=== PATIENT | female | born 1990 | race Caucasian/White ===

== ENCOUNTER 2021-02-12 21:39 | Emergency (ER) | payer MEDICAID, SELFPAY ==
[2021-02-12 22:31] LABS: HCG Qualitative Urine. Negative (Negative)
[2021-02-12 22:33] LABS: Add Urine Microscopic? YES; Bilirubin Urine Neg (Negative); Blood Urine 3+ (Negative); Glucose Urine UA Norm (Normal); Ketones Urine Negative (Negative); Leukocyte Esterase Urine Negative (Negative); Nitrate Urine Negative (Negative); Protein Urine Neg (Negative); Specific Gravity, Urine 1.015 (1.005-1.030); Urine Appearance Clear (CLEAR); Urine Color Yellow (Yellow); Urobilinogen Urine Norm (Negative); pH Urine 6.5 (5-7)
[2021-02-12 22:44] LABS: Add Urine Culture? Yes; Bacteria Urine 2+ /hpf; RBC Urine 50-80 /hpf (0-2); WBC Urine 0-4 /hpf (0-5)
[2021-02-12 22:57] VITALS: PULSE 78; RESP 16; TEMP 36.8; O2SAT 98; BMI 47.2
[2021-02-13 02:08] VITALS: BP 145/98; PULSE 74; RESP 18; O2SAT 98
[2021-02-13 02:18] LABS: Hematocrit 46.1 % (37.0-47.0); Hemoglobin 15.1 g/dL (11.5-15.3); Mean Corpuscular HGB Conc 32.8 g/dL (30.0-36.0); Mean Corpuscular Hemoglobin 30.9 pg (28.0-34.0); Mean Corpuscular Volume 94.5 fL (81-99); Nucleated Red Blood Cells % 0 %; Red Blood Count 4.88 10^6/uL (4.1-5.3)
--- NOTE | 2021-02-13 02:19 | W.ED.PREGNAN ---
HPI - General: Chief complaint: Vaginal Bleeding Stated complaint: N/V,Mctge543.6,weakness,severe cramping,bleeding. Time Seen by Provider: 02/13/21 01:58 Source: patient Mode of arrival: ambulatory Limitations: no limitations History of Present Illness: HPI Narrative: 30 yo female patient presents with vaginal bleeding and pelvic cramping. Pt states this has been going on for 4 weeks and has a hysterectomy scheduled in March. Pt states she lb up dizzy today. Pt denies any urinary symptoms or back pain. Pt states she felt like she ws running a fever earlier today Date of Last Menstrual Period: 02/12/21 Associated symptoms: Deny abdominal pain, dysuria, headache(s), malaise, nausea, syncope or vomiting Related Data: : 5 Review of Systems Const: Reports: fever(s); Denies: chills, body aches, change in appetite, change in weight, fatigue, malaise or diaphoresis Eyes: Denies: change in vision, blurry vision, blind spots, photophobia, eye discomfort, eye discharge, eye redness, floaters or seeing flashes ENMT: Denies: throat pain, uvular edema, enlarged tonsils, odynophagia, hoarseness, mouth pain, swelling of lips/tongue, oral sores, bleeding gums, dental pain, dry mouth, ear or mastoid pain, ear discharge, change in hearing, tinnitus, disequilibrium, nasal discharge, nasal congestion, post nasal drip or sinus pain Card: Denies: chest pain, palpitations, irregular heart rhythm, edema, swelling of feet/ankles, lightheadedness, syncope, pre-syncope, dyspnea on exertion, orthopnea, leg pain with exertion or acrocyanosis Resp: Denies: dyspnea, productive cough, non-productive cough, wheezing, stridor, pain on inspiration, change in phlegm color, hemoptysis or chest congestion GI: Denies: abdominal pain, nausea, vomiting, hematemesis, dysphagia, diarrhea, constipation, GI cramping, change in bowel habits or rectal pain : Reports: vaginal bleeding and pelvic pain; Denies: flank pain, difficulty voiding, dysuria, urinary frequency, urinary urgency, urinary hesitancy or hematuria Musc: Denies: neck pain, back pain, extremity pain, extremity swelling, joint pain, joint swelling, joint redness, joint warmth or deformity Skin/Breast: Denies: rash, pruritus, erythema, sores, new lesions, changes in skin color or dry skin Neuro: Denies: headache(s), numbness in extremities, weakness in extremities, sensory changes, lack of coordination, difficulty walking, frequent falls, dizziness, vertigo, confusion, behavioral changes, Slurred speech present, difficulty communicating thoughts or seizure-like activity Psych: Denies: anxiety, depression, suicidal ideation or homicidal ideation Endo: Denies: polyuria, polydipsia, tired all the time, cold intolerance, excessive sweating, flushing, hot flashes or heat intolerance Ezekiel/Lymph: Denies: easy bruising, easy bleeding, petechiae, purpura, enlarged lymph nodes or tender lymph nodes All/Imm: Denies: urticaria, throat swelling, tongue swelling, facial swelling, acute wheezing or itchy eyes [facility] Female Reproductive History: Date of last menstrual period: 02/12/21 : 5 Physical Exam Const: COMMON NORMALS: no acute distress, average body habitus, patient oriented x3, no limitations, healthy appearing, alert and well nourished HENMT: THROAT: no uvular edema Neck/C-Spine: COMMON NORMALS: no JVD Lymph: LYMPHATIC: no lymphadenopathy noted Resp: COMMON NORMALS: normal respiratory effort, No retractions, No use of accessory muscles and clear to auscultation bilaterally AUSCULTATION: clear to auscultation bilaterally Cardio: COMMON NORMALS: no JVD, regular rate, regular rhythm, S1 normal heart sound present, S2 normal heart sound present, No gallops present (Cardio), No clicks present (Cardio), No murmurs present (Cardio), No rub (Cardio) and Peripheral pulses 2+ throughout RATE: regular rate RHYTHM: regular rhythm HEART SOUNDS: S1 normal heart sound present and S2 normal heart sound present PERIPHERAL PULSES: Peripheral pulses 2+ throughout GI: COMMON NORMALS: Normal to inspection, nondistended, normoactive bowel sounds present, Soft to palpation, non-tender, No hepatosplenomegaly present, no masses and no bruits PALPATION: Yes Soft to palpation and Yes No hepatosplenomegaly present : COMMON NORMALS: Yes no CVA tenderness BLADDER/KIDNEY EXAM: Yes no CVA tenderness Back/Pelvis: COMMON NORMALS: no CVA tenderness Neuro: COMMON NORMALS: patient oriented x3 SENSORIUM/ORIENTATION: Yes alert Course Vital Signs: Vital signs: Vital Signs Temperature 98.2 F 02/12/21 22:57 Pulse Rate 86 02/13/21 03:25 Respiratory Rate 18 02/13/21 03:25 Blood Pressure 142/88 02/13/21 03:25 Pulse Oximetry 96 02/13/21 03:25 MDM - OB/Uterine Contractions MDM Narrative: Medical decision making narrative: Pt is well appearing non toxic and in no acute distress Pt H&H are stable. VSS. t US Reveals Patient: Ivy Duque IUnit #: [id number]: [id number]#:[id number]/Sex: 30 / FADM Date: 02/12/21Loc: ERRoom/Bed:Attending Dr: Ordering Provider/Ordering MD: Natalia Jovel NP Date of Service: 02/13/21 Procedure(s): US transvaginal [id number] Accession Number(s): [id number] Report Number: [id number] PROCEDURE INFORMATION: Exam: US Pelvis, Transvaginal Exam date and time: 02/13/2021 2:57 AM Age: 30 years old Clinical indication: Pelvic pain; Prior surgery; Surgery date: 6+ months; Surgery type: Tubal; Additional info: Vag bleeding and pelvic pain TECHNIQUE: Imaging protocol: Real-time transvaginal pelvic ultrasound with image documentation. Transvaginal imaging was used for better evaluation of the endometrium, adnexa, and/or cervix. COMPARISON: No relevant prior studies available. FINDINGS: Uterus/cervix: There is a heterogeneous thickened endometrial mass measuring 2.3 x 1.3 x 2.3 cm within the lower uterine segment. The uterus measures 6.6 x 4.4 x 4.8 cm. Right adnexa: The right ovary measures 2.2 x 2.9 cm. Vascular flow is demonstrated within the right ovary with color Doppler and duplex waveform sonography. PSV 45 cm/s, RI 0.93. Left adnexa: The left ovary measures 2.0 x 2.52.3 cm. Vascular flow is demonstrated within the left ovary with color Doppler and duplex waveform sonography. PSV 11.5 cm/s, RI 0.46. Intraperitoneal space: Trace fluid is seen within the cul-de-sac. US/US transvaginal [id number] IMPRESSION: 1. Endometrial mass seen in the lower uterine segment measuring up to 2.3 cm. 2. Otherwise normal pelvic sonography Pt is aware of these findings and has hysterectomy scheduled onext month. Return precautions advised and home care reviewed. Pt is medically stable and appropriate for DC Lab Data: Labs: Lab Results 02/12/21 02/12/21 02/13/21 Range/Units 21:50 21:50 02:07 WBC 17.0 H (4.0-10.0) 10^3/ uL RBC 4.88 (4.1-5.3) 10^6/u L Hgb 15.1 (11.5-15.3) g/dL Hct 46.1 (37.0-47.0) % MCV 94.5 (81-99) fL MCH 30.9 (28.0-34.0) pg MCHC 32.8 (30.0-36.0) g/dL RDW 13.2 (12.1-15.1) % Plt Count 238 (130-400) 10^3/c mm MPV 11.2 H (7.4-10.4) fL Neut % (Auto) 59.6 % Lymph % (Auto) 32.7 % Gillespie % (Auto) 4.9 % Eos % (Auto) 2.0 % Baso % (Auto) 0.4 % Neut # (Auto) 10.15 H (1.8-7.7) 10^3/u L Lymph # (Auto) 5.6 H (0.8-4.8) 10^3/u L Gillespie # (Auto) 0.8 (0.2-0.9) 10^3/u L Eos # (Auto) 0.3 (0.0-0.8) 10^3/u L Baso # (Auto) 0.1 (0.0-0.1) 10^3/u L Nucleated RBC % (a uto) 0 % Nucleated RBCs # 0.0 /100WBC Sodium (136-145) mmol/L Potassium (3.5-5.1) mmol/L Chloride (98-107) mmol/L Carbon Dioxide (22-29) mmol/L Anion Gap (5-19) BUN (6-20) mg/dL Creatinine (0.5-0.9) mg/dL GFR Calculation (90-130) mL/min Glucose (65-115) mg/dL Calculated Osmolal ity (285-295) mOsm/k g Calcium (8.5-10.5) mg/dL Total Bilirubin (0.15-1.2) mg/dL AST (0-32) U/L ALT (0-33) U/L Alkaline Phosphata se (35-105) IU/L Total Protein (6.6-8.7) g/dL Albumin (3.5-5.2) g/dL Globulin (1.3-4.6) g/dL HCG, Qual Negative (Negative) Urine Color Yellow (Yellow) Urine Appearance Clear (CLEAR) Urine pH 6.5 (5-7) Ur Specific Gravit y 1.015 (1.005-1.030) Urine Protein Neg (Negative) Urine Glucose (UA) Norm (Normal) Urine Ketones Negative (Negative) Urine Blood 3+ H (Negative) Urine Nitrate Negative (Negative) Urine Bilirubin Neg (Negative) Urine Urobilinogen Norm (Negative) mg/dL Ur Leukocyte Alina ase Negative (Negative) Urine RBC 50-80 H (0-2) /hpf Urine WBC 0-4 H (0-5) /hpf Ur Squamous Epith Cells 5-10 H (0-5) /hpf Amorphous Sediment Not Reportable Urine Bacteria 2+ H (NONE) /hpf 02/13/21 Range/Units 02:07 WBC (4.0-10.0) 10^3/ uL RBC (4.1-5.3) 10^6/u L Hgb (11.5-15.3) g/dL Hct (37.0-47.0) % MCV (81-99) fL MCH (28.0-34.0) pg MCHC (30.0-36.0) g/dL RDW (12.1-15.1) % Plt Count (130-400) 10^3/c mm MPV (7.4-10.4) fL Neut % (Auto) % Lymph % (Auto) % Gillespie % (Auto) % Eos % (Auto) % Baso % (Auto) % Neut # (Auto) (1.8-7.7) 10^3/u L Lymph # (Auto) (0.8-4.8) 10^3/u L Gillespie # (Auto) (0.2-0.9) 10^3/u L Eos # (Auto) (0.0-0.8) 10^3/u L Baso # (Auto) (0.0-0.1) 10^3/u L Nucleated RBC % (a uto) % Nucleated RBCs # /100WBC Sodium 139 (136-145) mmol/L Potassium 4.2 (3.5-5.1) mmol/L Chloride 105 (98-107) mmol/L Carbon Dioxide 23 (22-29) mmol/L Anion Gap 15.2 (5-19) BUN 14 (6-20) mg/dL Creatinine 0.6 (0.5-0.9) mg/dL GFR Calculation 115.9 (90-130) mL/min Glucose 94 (65-115) mg/dL Calculated Osmolal ity 288 (285-295) mOsm/k g Calcium 8.6 (8.5-10.5) mg/dL Total Bilirubin 0.2 (0.15-1.2) mg/dL AST 15 (0-32) U/L ALT 28 (0-33) U/L Alkaline Phosphata se 82 (35-105) IU/L Total Protein 6.9 (6.6-8.7) g/dL Albumin 3.9 (3.5-5.2) g/dL Globulin 3.0 (1.3-4.6) g/dL HCG, Qual (Negative) Urine Color (Yellow) Urine Appearance (CLEAR) Urine pH (5-7) Ur Specific Gravit y (1.005-1.030) Urine Protein (Negative) Urine Glucose (UA) (Normal) Urine Ketones (Negative) Urine Blood (Negative) Urine Nitrate (Negative) Urine Bilirubin (Negative) Urine Urobilinogen (Negative) mg/dL Ur Leukocyte Alina ase (Negative) Urine RBC (0-2) /hpf Urine WBC (0-5) /hpf Ur Squamous Epith Cells (0-5) /hpf Amorphous Sediment Urine Bacteria (NONE) /hpf Discharge Plan Discharge Patient Disposition: Home Clinical Impression: Vaginal bleeding, Dysfunctional uterine bleeding Condition: Stable Discharge Orders: Discharge ED (Routine); Ordered 02/13/21 Ordered By: Natalia Jovel Discharge Diet: Advance as tolerated Discharge Activity: Resume usual activity Patient Instructions: Dysfunctional Uterine Bleeding (ED), Opioid Safety Activity Restrictions/Additional Instructions: Please keep appointment as scheduled with BUILDING SERVICES SUPERVISOR for planned hysterectomy Return to the ER with any worsening of symptoms or You continue to bleed heavily, or you feel faint. Coding Level of Care Code ED Supervisor Stripping for Chg Fwd Exam Detailed
[2021-02-13 02:23] VITALS: RESP 18; O2SAT 96
[2021-02-13] MEDS: morphine 4 mg/mL SDV 1 mL IVP (02:23)
[2021-02-13] MEDS: ondansetron 2 mg/ML SDV 2 mL 4 MG IVP (02:23)
[2021-02-13 02:24] LABS: Basophils # 0.1 10^3/uL (0.0-0.1); Basophils % 0.4 %; Eosinophils # 0.3 10^3/uL (0.0-0.8); Lymphocytes # 5.6 10^3/uL (0.8-4.8); Lymphocytes % 32.7 %; Mean Platelet Volume 11.2 fL (7.4-10.4); Monocytes # 0.8 10^3/uL (0.2-0.9); Monocytes % 4.9 %; Neutrophils # 10.15 10^3/uL (1.8-7.7); Neutrophils % 59.6 %; Platelet Count 238 10^3/cmm (130-400); Red Cell Distribution Width 13.2 % (12.1-15.1)
[2021-02-13] MEDS: sodium chloride 0.9% 1,000 ML 999 ML IV (02:28)
[2021-02-13 02:41] LABS: Alanine Aminotransferase 28 U/L (0-33); Albumin Level 3.9 g/dL (3.5-5.2); Alkaline Phosphatase 82 IU/L (35-105); Aspartate Amino Transferase 15 U/L (0-32); Blood Urea Nitrogen 14 mg/dL (6-20); Calcium 8.6 mg/dL (8.5-10.5); Carbon Dioxide 23 mmol/L (22-29); Chloride 105 mmol/L (98-107); Glomerular Filtration Rate 115.9 mL/min (90-130); Glucose 94 mg/dL (65-115); Osmolality Calculated 288 mOsm/kg (285-295); Sodium 139 mmol/L (136-145); Total Bilirubin 0.2 mg/dL (0.15-1.2); Total Protein 6.9 g/dL (6.6-8.7)
[2021-02-13 02:49] LABS: Anion Gap 15.2 (5-19); Potassium 4.2 mmol/L (3.5-5.1)
[2021-02-13 02:54] LABS: Slide Review Slide Review Perform
[2021-02-13 03:25] VITALS: BP 142/88; PULSE 86; RESP 18; O2SAT 96
--- NOTE | 2021-02-13 23:15 | USR_ITS ---
PROCEDURE INFORMATION: Exam: US Pelvis, Transvaginal Exam date and time: 02/13/2021 2:57 AM Age: 30 years old Clinical indication: Pelvic pain; Prior surgery; Surgery date: 6+ months; Surgery type: Tubal; Additional info: Vag bleeding and pelvic pain TECHNIQUE: Imaging protocol: Real-time transvaginal pelvic ultrasound with image documentation. Transvaginal imaging was used for better evaluation of the endometrium, adnexa, and/or cervix. COMPARISON: No relevant prior studies available. FINDINGS: Uterus/cervix: There is a heterogeneous thickened endometrial mass measuring 2.3 x 1.3 x 2.3 cm within the lower uterine segment. The uterus measures 6.6 x 4.4 x 4.8 cm. Right adnexa: The right ovary measures 2.2 x 2.9 cm. Vascular flow is demonstrated within the right ovary with color Doppler and duplex waveform sonography. PSV 45 cm/s, RI 0.93. Left adnexa: The left ovary measures 2.0 x 2.52.3 cm. Vascular flow is demonstrated within the left ovary with color Doppler and duplex waveform sonography. PSV 11.5 cm/s, RI 0.46. Intraperitoneal space: Trace fluid is seen within the cul-de-sac. US/US transvaginal [id number] IMPRESSION: 1. Endometrial mass seen in the lower uterine segment measuring up to 2.3 cm. 2. Otherwise normal pelvic sonography
== END 2021-02-13 03:26 | disposition home or self-care (01) ==
PROVIDERS: Emergency Provider Registered Nurse
DX: N93.8 Other specified abnormal uterine and vaginal bleeding (principal)
CPT/HCPCS: 76830; 80053; 81001; 81025; 85025; 87086; 96361; 96374; 96375; 99283; J2270; J2405; J7030

== ENCOUNTER 2021-02-14 10:12 | Emergency (ER) | payer MEDICAID, SELFPAY ==
[2021-02-14 10:26] VITALS: PULSE 80; RESP 16; TEMP 37.1; O2SAT 98; BMI 50.4
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
[2021-02-14 11:11] VITALS: RESP 18
[2021-02-14] MEDS: morphine 4 mg/mL SDV 1 mL IVP (11:11)
[2021-02-14] MEDS: ondansetron 2 mg/ML SDV 2 mL 4 MG IVP (11:11)
[2021-02-14] MEDS: sodium chloride 0.9% 1,000 ML 999 ML IV (11:11)
[2021-02-14 11:13] LABS: Basophils # 0.1 10^3/uL (0.0-0.1); Basophils % 0.3 %; Eosinophils # 0.2 10^3/uL (0.0-0.8); Eosinophils % 1.4 %; Hematocrit 46.6 % (37.0-47.0); Hemoglobin 14.9 g/dL (11.5-15.3); Lymphocytes # 3.5 10^3/uL (0.8-4.8); Lymphocytes % 22.8 %; Mean Corpuscular Hemoglobin 30.7 pg (28.0-34.0); Mean Corpuscular Volume 95.9 fL (81-99); Monocytes # 0.6 10^3/uL (0.2-0.9); Monocytes % 3.9 %; Neutrophils # 10.86 10^3/uL (1.8-7.7); Neutrophils % 71.2 %; Nucleated Red Blood Cells % 0 %; Platelet Count 213 10^3/cmm (130-400); Red Blood Count 4.86 10^6/uL (4.1-5.3); Red Cell Distribution Width 13.2 % (12.1-15.1); White Blood Count 15.3 10^3/uL (4.0-10.0)
[2021-02-14 11:32] LABS: Alanine Aminotransferase 24 U/L (0-33); Albumin Level 3.5 g/dL (3.5-5.2); Alkaline Phosphatase 74 IU/L (35-105); Aspartate Amino Transferase 14 U/L (0-32); Blood Urea Nitrogen 12 mg/dL (6-20); Calcium 8.5 mg/dL (8.5-10.5); Carbon Dioxide 22 mmol/L (22-29); Chloride 106 mmol/L (98-107); Globulin 3.2 g/dL (1.3-4.6); Glomerular Filtration Rate 115.9 mL/min (90-130); Glucose 109 mg/dL (65-115); Osmolality Calculated 288 mOsm/kg (285-295); Sodium 139 mmol/L (136-145); Total Bilirubin 0.3 mg/dL (0.15-1.2); Total Protein 6.7 g/dL (6.6-8.7)
--- NOTE | 2021-02-14 12:07 | DCPLANNER ---
distributed generation project manager was asked to schedule a follow up appointment for patient with [facility]. distributed generation project manager called [facility], spoke with Isabelle, gave clinic patients information. distributed generation project manager was told that Dr. Wray wanted to see patient on February 17 at 9:00. distributed generation project manager told the clinic that per Dr. Wray that is when the physician wanted to see patient.
[2021-02-14 12:40] VITALS: BP 130/54; PULSE 72; RESP 18; O2SAT 98
--- NOTE | 2021-04-13 06:52 | DCPLANNER ---
Patient had a follow up appointment scheduled for 02.17.21 with [facility] - patient did attend appointment.
== END 2021-02-14 12:42 | disposition home or self-care (01) ==
PROVIDERS: Emergency Provider Physician Assistant
DX: N93.8 Other specified abnormal uterine and vaginal bleeding (principal)
CPT/HCPCS: 80053; 84702; 85025; 96361; 96374; 96375; 99283; 99291; J2270; J2405; J7030

== ENCOUNTER → 2021-02-17 09:23 | Outpatient (BNVA) | payer MEDICAID, SELFPAY | PROVIDERS: Visit Provider Obstetrics & Gynecology | DX: N93.8 Other specified abnormal uterine and vaginal bleeding (principal) | CPT/HCPCS: 88305 ==

== ENCOUNTER → 2021-02-20 13:37 | Outpatient (BNVA) | payer MEDICAID, SELFPAY | PROVIDERS: Visit Provider Obstetrics & Gynecology | DX: Z01.812 Encounter for preprocedural laboratory examination (principal); Z20.822 Contact with and (suspected) exposure to COVID-19 | CPT/HCPCS: 87635 ==

== ENCOUNTER 2021-06-25 13:42 | Emergency (ER) | payer MEDICAID, SELFPAY ==
[2021-06-25 13:54] VITALS: BP 156/101; PULSE 83; RESP 20; TEMP 35.9; O2SAT 96; BMI 48.2
--- NOTE | 2021-06-25 14:17 | W.ED.GENADLT ---
HPI - General Adult General: Chief complaint: General Medical Stated complaint: 2 TEETH EXTRACTED 5 DAYS AGO:PAIN,HTN,DIZZY,NAUSEA Time Seen by Provider: 06/25/21 14:10 Source: patient Mode of arrival: ambulatory Limitations: no limitations History of Present Illness: HPI narrative: 31-year-old female states she had to have her left lower molars extracted last week. States she had increasing pain over the last 3 days and severe pain over the last 2 days where her pain meds are not helping it. States pain is sharp in nature and is radiating to her neck she is having difficulty eating and nausea due to the pain. She is taking Reynolds at home. States pain is currently 9 out of 10. Denies any fever or vomiting. Associated symptoms: Deny chest pain, dyspnea, headache(s), nausea, rash or vomiting Review of Systems Const: Denies: fever(s), chills, body aches or change in appetite Eyes: Denies: blurry vision or eye discomfort ENMT: Reports: mouth pain Card: Denies: chest pain Resp: Denies: dyspnea GI: Denies: abdominal pain, nausea, vomiting or diarrhea : Denies: dysuria Musc: Denies: neck pain or back pain Skin/Breast: Denies: rash Neuro: Denies: headache(s) Psych: Denies: depression Ezekiel/Lymph: Denies: easy bruising All/Imm: Denies: urticaria PFSH ED PFSH: Family History (Updated 02/17/21 @ 08:42 by Kortney Kong LPN) Mother Colon cancer Diabetes Hyperlipidemia Hypertension Stroke Heart disease Father Diabetes Hypertension Thyroid disease Denies family history of Clotting disorder Chronic kidney disease (CKD) Bleeding disorder Female Reproductive History: Date of last menstrual period: 02/12/21 Physical Exam Const: COMMON NORMALS: no acute distress, patient oriented x3 and healthy appearing HENMT: COMMON NORMALS: normocephalic and atraumatic HEAD & SCALP: normocephalic and atraumatic Eye: COMMON NORMALS: Equal, round and reactive pupils present and EOMs intact bilaterally PUPIL: Yes Equal, round and reactive pupils present Neck/C-Spine: COMMON NORMALS: full ROM and supple Chest: COMMONS NORMALS: normal inspection of the chest and normal palpation of entire chest wall Resp: COMMON NORMALS: normal respiratory effort, No retractions, No use of accessory muscles and clear to auscultation bilaterally AUSCULTATION: clear to auscultation bilaterally Cardio: COMMON NORMALS: regular rate, regular rhythm and No murmurs present (Cardio) RATE: regular rate RHYTHM: regular rhythm GI: COMMON NORMALS: Normal to inspection, nondistended, normoactive bowel sounds present, Soft to palpation, non-tender and no masses PALPATION: Yes Soft to palpation Extremity: COMMON NORMALS: normal to inspection and full ROM Neuro: COMMON NORMALS: patient oriented x3, moves all extremities and no focal motor deficits Psych: COMMON NORMALS: mental status grossly normal, Normal thought process present and cooperative THOUGHT PROCESS: Normal thought process present Skin: COMMON NORMALS: no rashes or lesions noted and no wounds GENERAL SKIN EXAM: no rashes or lesions noted Course Vital Signs: Vital signs: Vital Signs Temperature 98.4 F 06/25/21 14:48 Pulse Rate 77 06/25/21 14:48 Respiratory Rate 16 06/25/21 14:48 Blood Pressure 149/103 06/25/21 14:48 Pulse Oximetry 96 06/25/21 14:48 MDM - General Adult MDM Narrative: Medical decision making narrative: Patient presents here with dental pain from recent tooth extraction exam here is benign she is no signs of abscess or any serious infection. Pain here is much improved she stable for discharge she is to continue her amoxicillin and follow-up with her dentist. Patient understands agrees to plan. Lab Data: Labs: Lab Results 06/25/21 06/25/21 06/25/21 14:20 14:20 14:20 WBC 13.7 10^3/uL H 10 ^3/uL (4.0-10.0) RBC 5.15 10^6/uL 10^6 /uL (4.1-5.3) Hgb 15.3 g/dL g/dL (11.5-15.3) Hct 46.0 % % (37.0-47.0) MCV 89.3 fl fl (81-99) MCH 29.7 pg pg (28.0-34.0) MCHC 33.3 g/dL g/dL (30.0-36.0) RDW 13.8 % % (12.1-15.1) Plt Count 252 10^3/cmm 10^3 /cmm (130-400) MPV 10.6 fL H fL (7.4-10.4) Neut % (Auto) 60.8 % % Lymph % (Auto) 30.6 % % [place] % (Auto) 6.6 % % Eos % (Auto) 1.1 % % Baso % (Auto) 0.3 % % Neut # (Auto) 8.37 10^3/uL H 10 ^3/uL (1.8-7.7) Lymph # (Auto) 4.2 10^3/uL 10^3/ uL (0.8-4.8) [place] # (Auto) 0.9 10^3/uL 10^3/ uL (0.2-0.9) Eos # (Auto) 0.2 10^3/uL 10^3/ uL (0.0-0.8) Baso # (Auto) 0.0 10^3/uL 10^3/ uL (0.0-0.1) Nucleated RBC % (a uto) 0 % % Nucleated RBCs # 0.0 /100WBC /100W BC Sodium 135 mmol/L L mmol /L (136-145) Potassium 3.9 mmol/L mmol/L (3.5-5.1) Chloride 102 mmol/L mmol/L (98-107) Carbon Dioxide 26 mmol/L mmol/L (22-29) Anion Gap 10.9 (5-19) BUN 7 mg/dL mg/dL (6-20) Creatinine 0.5 mg/dL mg/dL (0.5-0.9) GFR Calculation 142.1 mL/min H mL /min (90-130) Glucose 72 mg/dL mg/dL (65-115) Calculated Osmolal ity 277 mOsm/kg L mOs m/kg (285-295) Calcium 8.5 mg/dL mg/dL (8.5-10.5) Total Bilirubin 0.3 mg/dL mg/dL (0.15-1.2) AST 15 U/L U/L (0-32) ALT 18 U/L U/L (0-33) Alkaline Phosphata se 77 IU/L IU/L (35-105) Total Protein 7.1 g/dL g/dL (6.6-8.7) Albumin 3.8 g/dL g/dL (3.5-5.2) Globulin 3.3 g/dL g/dL (1.3-4.6) Lipase 14 U/L U/L (13-60) HCG, Qual Negative (Negative) Discharge Plan Discharge Patient Disposition: Home Clinical Impression: Pain, dental Condition: Stable Prescriptions: No Action Depo-Provera 150 mg/mL Suspension 150 mg IM UNK RF: 0 Zofran 4 mg tablet 4 mg PO Q8H PRN (Reason: nausea and vomiting) Qty: 15 RF: 0 Discharge Orders: Discharge ED (Routine); Ordered 06/25/21 Ordered By: Brian Pate Referrals: Quyen Branham [Primary Care Provider] - 1-3 days Discharge Diet: Advance as tolerated Discharge Activity: Resume usual activity Coding Level of Care Code ED Instructional Materials Director for [place] Fwd Exam Comprehensive
[2021-06-25 14:47] VITALS: RESP 18
[2021-06-25] MEDS: ondansetron 2 mg/ML SDV 2 mL 4 MG IVP (14:47)
[2021-06-25] MEDS: HYDROmorphone 1 mg/mL INJ 1 mL IVP ×2 (14:47→16:04)
[2021-06-25 14:48] VITALS: BP 149/103; PULSE 77; RESP 16; TEMP 36.9; O2SAT 96
[2021-06-25] MEDS: sodium chloride 0.9% 1,000 ML 999 ML IV (14:48)
[2021-06-25 14:57] LABS: Basophils % 0.3 %; Eosinophils # 0.2 10^3/uL (0.0-0.8); Eosinophils % 1.1 %; Hemoglobin 15.3 g/dL (11.5-15.3); Lymphocytes # 4.2 10^3/uL (0.8-4.8); Lymphocytes % 30.6 %; Mean Corpuscular HGB Conc 33.3 g/dL (30.0-36.0); Mean Corpuscular Hemoglobin 29.7 pg (28.0-34.0); Mean Corpuscular Volume 89.3 fl (81-99); Mean Platelet Volume 10.6 fL (7.4-10.4); Monocytes # 0.9 10^3/uL (0.2-0.9); Monocytes % 6.6 %; Neutrophils # 8.37 10^3/uL (1.8-7.7); Neutrophils % 60.8 %; Nucleated Red Blood Cells % 0 %; Platelet Count 252 10^3/cmm (130-400); Red Blood Count 5.15 10^6/uL (4.1-5.3); Red Cell Distribution Width 13.8 % (12.1-15.1); White Blood Count 13.7 10^3/uL (4.0-10.0)
[2021-06-25 15:19] LABS: Slide Review Slide Review Perform
[2021-06-25 15:28] LABS: HCG, Serum Qual Negative (Negative)
[2021-06-25 15:35] LABS: Alanine Aminotransferase 18 U/L (0-33); Albumin Level 3.8 g/dL (3.5-5.2); Alkaline Phosphatase 77 IU/L (35-105); Anion Gap 10.9 (5-19); Aspartate Amino Transferase 15 U/L (0-32); Blood Urea Nitrogen 7 mg/dL (6-20); Calcium 8.5 mg/dL (8.5-10.5); Carbon Dioxide 26 mmol/L (22-29); Chloride 102 mmol/L (98-107); Globulin 3.3 g/dL (1.3-4.6); Glomerular Filtration Rate 142.1 mL/min (90-130); Glucose 72 mg/dL (65-115); Lipase 14 U/L (13-60); Osmolality Calculated 277 mOsm/kg (285-295); Potassium 3.9 mmol/L (3.5-5.1); Sodium 135 mmol/L (136-145); Total Bilirubin 0.3 mg/dL (0.15-1.2); Total Protein 7.1 g/dL (6.6-8.7)
[2021-06-25 16:04] VITALS: RESP 18
[2021-06-25 16:08] VITALS: BP 104/54; PULSE 93; RESP 18; O2SAT 93
--- NOTE | 2021-06-25 16:09 | PC.NURSE ---
spoke to about vs. 2nd [place] held. new order obtained
[2021-06-25 16:22] VITALS: BP 106/64; PULSE 64; RESP 12; O2SAT 92
== END 2021-06-25 16:24 | disposition home or self-care (01) ==
PROVIDERS: Emergency Provider Emergency Medicine; PCP Registered Nurse
DX: K08.89 Other specified disorders of teeth and supporting structures (principal)
CPT/HCPCS: 80053; 83690; 84703; 85025; 96361; 96374; 96375; 96376; 99284; J1170; J2405; J7030

== ENCOUNTER 2021-06-26 20:24 | Emergency (ER) | payer MEDICAID, SELFPAY ==
[2021-06-26 20:32] VITALS: BP 172/85; PULSE 92; RESP 16; TEMP 36.7; O2SAT 98
--- NOTE | 2021-06-26 20:46 | XRR_ITS ---
PROCEDURE INFORMATION: Exam: XR Chest Exam date and time: 06/26/2021 8:46 PM Age: 31 years old Clinical indication: Sternal or substernal pain; Additional info: Cp TECHNIQUE: Imaging protocol: XR of the chest. Views: 1 view. Total images: 1 COMPARISON: No relevant prior studies available. FINDINGS: Lungs: No visible active interstitial or alveolar airspace disease. Pleural spaces: No pleural effusion. No pneumothorax. Heart/Mediastinum: Cardiac structures and configuration within normal limits. Bones/joints: Unremarkable. Other findings: Obesity. XR/XR chest 1V portable [id number] IMPRESSION: No radiographic evidence of active cardiopulmonary process. Radiation Dose CTDIVOL = (mGy): DLP = (mGy-cm)
--- NOTE | 2021-06-26 20:46 | ECG_ITS ---
[facility] Test Date: 2021-06-27 Pat Name: Ivy Duque Department: Room: Gender: Female Necktie Turner: : 1990 Requested By: Brian Pate Order Number: [id number] Lorena MD: Shoshana Kennedy M.D. Measurements Intervals [place] Rate: 76 P: 16 IN: 128 QRS: 66 QRSD: 104 T: 69 QT: 374 QTc: 422 Interpretive Statements SINUS RHYTHM No previous ECG available for comparison Electronically Signed On 06-27-2021 22:18:10 CDT by Shoshana Kennedy M.D. [email or web address]
--- NOTE | 2021-06-27 | ED_ITS ---
HPI - Chest Pain General: Chief Complaint: Chest Pain Stated Complaint: Blood Pressure High Time Seen by Provider: 06/26/21 22:49 History of Present Illness: HPI narrative: Patient is a 31-year-old female comes to the ED with dental pain and anxiety. Patient was seen by her dentist approximately 5 days ago and had 2 teeth removed. The teeth removed 5 days ago were the left lower molars. she has 2 more teeth that need to be removed and there the right lower molars. The tooth is supposed to have the other 2 teeth removed in the next couple weeks as well. Patient is currently taking a prescription of amoxicillin. She developed having severe right lower molar dental pain within the past 48 hours. These are the teeth that are going to be removed soon. She came here to the ED for dental pain and then started getting anxious and developed some mild chest pain that has improved greatly since being here in the ED. Her main complaint is right dental pain here today. Patient says she did get a hold of her dentist and they are going to see patient in 2 days to reevaluate right lower dental pain. Associated symptoms: Deny abdominal pain, dyspnea, fever(s), nausea, palpitations or vomiting Review of Systems Const: Denies: fever(s), chills or fatigue Eyes: Denies: change in vision or eye discomfort ENMT: Reports: dental pain (right lower molars); Denies: throat pain, odynophagia, nasal discharge or nasal congestion Card: Reports: chest pain; Denies: palpitations, edema, swelling of feet/ankles, dyspnea on exertion or orthopnea Resp: Denies: dyspnea, productive cough or non-productive cough GI: Denies: abdominal pain, nausea, vomiting, diarrhea, constipation or hematochezia : Denies: flank pain, dysuria or hematuria Musc: Denies: neck pain, back pain or extremity swelling Skin/Breast: Denies: rash or new lesions Neuro: Denies: headache(s), numbness in extremities or weakness in extremities Psych: Reports: anxiety (anxious due to the pain) [facility] ED PFSH: Family History Mother Colon cancer Diabetes Hyperlipidemia Hypertension Stroke Heart disease Father Diabetes Hypertension Thyroid disease Denies family history of Clotting disorder Chronic kidney disease (CKD) Bleeding disorder Female Reproductive History: Date of last menstrual period: 02/12/21 Physical Exam Const: COMMON NORMALS: no acute distress, patient oriented x3 and alert GENERAL APPEARANCE: cooperative and comfortable HENMT: COMMON NORMALS: normocephalic HEAD & SCALP: normocephalic FACE & SINUS: no edema MOUTH: Normal oral and palatal mucosa present, lip normal and tongue normal TEETH & GINGIVA: Yes abnormal tooth and associated gingiva lower right third molar tender and with associated gingival edema, Yes caries and Yes poor dentition THROAT: posterior oropharynx normal and uvula midline Neck/C-Spine: COMMON NORMALS: supple GENERAL: Yes normal visual inspection Resp: COMMON NORMALS: normal respiratory effort, No retractions, No use of accessory muscles and clear to auscultation bilaterally AUSCULTATION: clear to auscultation bilaterally Cardio: COMMON NORMALS: regular rate, regular rhythm, S1 normal heart sound present, S2 normal heart sound present, No gallops present (Cardio), No clicks present (Cardio), No murmurs present (Cardio) and Peripheral pulses 2+ throughout RATE: regular rate RHYTHM: regular rhythm HEART SOUNDS: S1 normal heart sound present and S2 normal heart sound present PERIPHERAL PULSES: Peripheral pulses 2+ throughout GI: COMMON NORMALS: Normal to inspection, nondistended, normoactive bowel sounds present, Soft to palpation, non-tender and no masses PALPATION: Yes Soft to palpation : COMMON NORMALS: Yes no CVA tenderness BLADDER/KIDNEY EXAM: Yes no CVA tenderness Back/Pelvis: COMMON NORMALS: no CVA tenderness Extremity: COMMON NORMALS: normal to inspection Neuro: COMMON NORMALS: patient oriented x3 and moves all extremities SENSORIUM/ORIENTATION: Yes alert Skin: GENERAL SKIN EXAM: dry skin Course Reevaluation(s): Reevaluation #1: After patient received some hydrocodone and Vistaril while here in the ED her pain improved and her chest pain completely resolved. Patient says she feels a lot better and is ready to go home. Time: 01:01 Vital Signs: Vital signs: Vital Signs Temperature 98.1 F 06/26/21 20:32 Pulse Rate 75 06/27/21 01:21 Respiratory Rate 18 06/27/21 01:21 Blood Pressure 180/100 06/27/21 01:21 Pulse Oximetry 97 06/27/21 01:21 MDM - Chest Pain MDM Narrative: Medical decision making narrative: Patient is a 31-year-old female comes to the ED with dental pain. Patient saw dentist approximately 5 da ys ago and had 2 teeth removed and is supposed to get 2 more teeth removed here in the next couple weeks. Her main complaint is right lower molar dental pain which are the next teeth patient is supposed to get removed. She is currently taking amoxicillin after having her teeth removed 5 days ago. She also reported having some mild anxiety and chest pain that was improving when she came to the ED. Vital stable. Patient appears to have multiple dental caries throughout and some gingival edema and dental caries of right lower molars. The rest of exam was benign. Chest x-ray showed no acute findings. EKG showed normal sinus rhythm with no ST segment elevation or depression seen. Patient was given a dose of hydrocodone and Vistaril here in the ED and her symptoms improved and she had no more chest pain. Patient diagnosed with dental pain due to caries and noncardiac chest pain likely from anxiety. She was discharged home with a prescription for ibuprofen 800 mg and told to continue taking her amoxicillin as previously prescribed. She says she has an appointment with her dentist in 2 days to reevaluate the other 2 teeth that are hurting. Return to ED precautions given. Patient understood and agreed with plan. Imaging Data^: CXR: Attestation: I personally reviewed and interpreted this imaging study as endy ws: Radiologist's impression: [address] [id number] ReportSigned Patient: Ivy Duque IUnit #: [id number]: [id number]#:[id number]/Sex: 31 / FADM Date: 06/26/21Loc: ERRoom/Bed:Attending Dr: Ordering Provider/Ordering MD: Brian Pate MD Date of Service: 06/26/21 Procedure(s): XR chest 1V portable [id number] Accession Number(s): [id number] Report Number: [id number] PROCEDURE INFORMATION: Exam: XR Chest Exam date and time: 06/26/2021 8:46 PM Age: 31 years old Clinical indication: Sternal or substernal pain; Additional info: Cp TECHNIQUE: Imaging protocol: XR of the chest. Views: 1 view. Total images: 1 COMPARISON: No relevant prior studies available. FINDINGS: Lungs: No visible active interstitial or alveolar airspace disease. Pleural spaces: No pleural effusion. No pneumothorax. Heart/Mediastinum: Cardiac structures and configuration within normal limits. Bones/joints: Unremarkable. Other findings: Obesity. XR/XR chest 1V portable [id number] IMPRESSION: No radiographic evidence of active cardiopulmonary process. Radiation Dose CTDIVOL = (mGy): DLP = (mGy-cm) Dictated By:Tirso Stacy By:Tirso Stacy Date/Time:06/26/21D/ 45 EKG Data^: EKG 1: Attestation: I personally reviewed and interpreted this EKG as follows: EKG interpretation date: 06/27/21 Interpretation: Normal sinus rhythm, 76 bpm, no ST segment elevation or depression seen. Discharge Plan Discharge Patient Disposition: Home Clinical Impression: Pain due to dental caries, Non-cardiac chest pain Condition: Stable Prescriptions: New ibuprofen 800 mg tablet 800 mg PO Q8H PRN (Reason: pain) Qty: 20 RF: 0 No Action Depo-Provera 150 mg/mL Suspension 150 mg IM UNK RF: 0 Zofran 4 mg tablet 4 mg PO Q8H PRN (Reason: nausea and vomiting) Qty: 15 RF: 0 Discharge Orders: Discharge ED (Routine); Ordered 06/27/21 Ordered By: Ben Saravia Discharge Diet: Regular Discharge Activity: Increase activity as tolerated Patient Instructions: Dental Caries (Cavities), Noncardiac Chest Pain (ED), Anxiety (ED) Activity Restrictions/Additional Instructions: Follow-up with medical provider as directed. Go to your next dental appointment on Saturday for further evaluation of dental pain. Continue taking your previously prescribed antibiotic. Take medications as prescribed. Return to the ER or your medical provider if condition worsens. Please read and understand discharge instructions. Thank you for choosing [facility] for your healthcare needs today. Please realize this is an emergency room and that we are providing you with a medical screening exam and this may not be complete and all inclusive of all the testing and or work up that you may need to determine your ailment or severity of your illness. It is very important that you follow up as instructed or that you return to the Emergency Department should you have concerns or if your condition changes or worsens in any way. Coding Level of Care Code ED Slab Lifting Supervisor for Chg Fwd Exam Comprehensive
[2021-06-27] MEDS: hyDROXYzine 25 mg Capsule PO (00:12)
[2021-06-27] MEDS: HYDROcodone-acetaminophen 7.5-325 mg Tablet 1 TAB PO (00:12)
[2021-06-27 01:21] VITALS: BP 180/100; PULSE 75; RESP 18; O2SAT 97
== END 2021-06-27 01:23 | disposition home or self-care (01) ==
PROVIDERS: Emergency Provider Physician Assistant
DX: R07.89 Other chest pain (principal); K02.9 Dental caries, unspecified
CPT/HCPCS: 71045; 93005; 99283

== ENCOUNTER → 2021-08-14 09:55 | Outpatient (BNVA) | payer MEDICAID, SELFPAY | PROVIDERS: PCP Registered Nurse; Referring Provider Registered Nurse; Visit Provider Anesthesiology Pain Medicine | DX: G89.29 Other chronic pain (principal); M47.816 Spondylosis without myelopathy or radiculopathy, lumbar region; F17.210 Nicotine dependence, cigarettes, uncomplicated; M79.604 Pain in right leg; Z79.899 Other long term (current) drug therapy | CPT/HCPCS: 99204 ==

== ENCOUNTER 2021-08-21 04:25 | Emergency (ER) | payer MEDICAID, SELFPAY ==
--- NOTE | 2021-08-21 03:22 | XRR_ITS ---
PROCEDURE INFORMATION: Exam: XR Chest Exam date and time: 08/21/2021 3:22 AM Age: 31 years old Clinical indication: Cough and dyspnea; Additional info: Cough SOB TECHNIQUE: Imaging protocol: XR of the chest. Views: 1 view. COMPARISON: CR XR chest 1V portable [id number] 06/26/2021 9:04 PM FINDINGS: Lungs: Unremarkable. No consolidation. Pleural spaces: Unremarkable. No pleural effusion. No pneumothorax. Heart/Mediastinum: Unremarkable. No cardiomegaly. Bones/joints: Unremarkable. XR/XR chest 1V portable [id number] IMPRESSION: No acute findings. Radiation Dose CTDIVOL = (mGy): DLP = (mGy-cm)
[2021-08-21 04:34] VITALS: BP 192/114; PULSE 81; RESP 20; TEMP 36.4; O2SAT 99; BMI 50.6
[2021-08-21] MEDS: oxyCODONE-APAP 5-325 mg Tablet 1 TAB PO (05:20)
[2021-08-21] MEDS: dexamethasone 4 mg Tablet 10 MG PO (05:20)
--- NOTE | 2021-08-21 05:22 | ED_ITS ---
HPI - COVID General: Chief Complaint: Shortness of Breath/Dyspnea Stated Complaint: Possible Covid Symptoms Time Seen by Provider: 08/21/21 04:45 Triage information: No fever, cough or shortness of breath . Exposure to COVID + person last 14 days History of Present Illness: MD complaint: reported COVID exposure and has COVID symptoms Prior covid testing: no COVID 19 common symptoms: positive fever(s), chills, cough, non-productive cough, dyspnea, fatigue, headache(s), throat pain, nasal congestion, nausea, vomiting and diarrhea COVID 19 other sytmptoms: negative chest pressure, chest pain, requiring oxygen, respiratory distress, lethargy or confusion Onset (ago): day(s) (3) Severity: moderate Pertinent comorbid conditions: immunocompromised state Treatment prior to arrival: acetaminophen COVID Results: SARS-CoV-2 Antigen (Rapid) Negative (Negative) 08/21/21 05:21 08/21/21 Nasal/Oral Coronavirus 2019 PCR Not detected 02/20/21 13:37 02/20/21 Review of Systems Const: Reports: fever(s), chills and fatigue ENMT: Reports: throat pain and nasal congestion Card: Denies: chest pain Resp: Reports: dyspnea and non-productive cough GI: Reports: nausea, vomiting and diarrhea Neuro: Reports: headache(s); Denies: confusion PFSH ED PFSH: Family History Mother Colon cancer Diabetes Hyperlipidemia Hypertension Stroke Heart disease Father Diabetes Hypertension Thyroid disease Denies family history of Clotting disorder Chronic kidney disease (CKD) Bleeding disorder Social History (Updated 08/14/21 @ 10:30 by Rachelle Penaloza LPN) Smoking and tobacco status: current every day smoker cigarettes Quit status (tobacco): considering quitting Smoking risk assessment/counseling performed?: Yes Alcohol intake: never Caregiver/support person: Yes Lives independently: Yes History of recent travel: No Female Reproductive History: Date of last menstrual period: 02/12/21 Physical Exam Const: COMMON NORMALS: no acute distress, patient oriented x3 and alert HENMT: COMMON NORMALS: normocephalic and Normal external nose present HEAD & SCALP: normocephalic FACE & SINUS: normal facial exam NOSE: Normal external nose present and Normal nares present THROAT: posterior oropharynx normal Eye: COMMON NORMALS: Equal, round and reactive pupils present and EOMs intact bilaterally PUPIL: Yes Equal, round and reactive pupils present Chest: COMMONS NORMALS: normal inspection of the chest Resp: EFFORT & INSPECTION: Yes tachypneic and No respiratory distress AUSCULTATION: wheezes Cardio: COMMON NORMALS: regular rate and regular rhythm RATE: regular rate RHYTHM: regular rhythm GI: COMMON NORMALS: Normal to inspection, nondistended, normoactive bowel sounds present and Soft to palpation PALPATION: Yes Soft to palpation and Yes Tenderness to palpation present (GI) (minimal diffuse) Neuro: COMMON NORMALS: patient oriented x3 SENSORIUM/ORIENTATION: Yes alert Course Vital Signs: Vital signs: Vital Signs Temperature 97.6 F 08/21/21 04:34 Pulse Rate 87 08/21/21 06:15 Respiratory Rate 18 08/21/21 06:15 Blood Pressure 144/87 08/21/21 06:15 Pulse Oximetry 96 08/21/21 06:15 MDM - COVID MDM Narrative: Medical decision making narrative: Chest x-ray is essentially negative. She is treated symptomatically. Swabs for rapid flu a and B, and rapid COVID-19 are negative. PCR is pending. As she is on Humira, she would be a good candidate for monoclonal antibody infusion should her PCR turn positive. She will be informed of this. As she is wheezing, she will be sent home with albuterol inhaler. Lab Data: Labs: Lab Results 08/21/21 08/21/21 05:21 05:21 Influenza Type A A g Negative (Negative) Influenza Type B A g Negative (Negative) SARS-CoV-2 Ag (Rap id) Negative (Negative) COVID Results: SARS-CoV-2 Antigen (Rapid) Negative (Negative) 08/21/21 05:21 08/21/21 Nasal/Oral Coronavirus 2019 PCR Not detected 02/20/21 13:37 02/20/21 Discharge Plan Discharge Patient Disposition: Home Clinical Impression: Viral illness Condition: Stable Prescriptions: New dexamethasone 6 mg tablet 6 mg PO DAILY Qty: 5 RF: 0 Zofran 4 mg tablet 4 mg PO Q6H PRN (Reason: nausea and vomiting) Qty: 10 RF: 0 No Action lisinopril 10 mg tablet 10 mg PO DAILY RF: 0 Humira 40 mg/0.8 mL syringe kit 40 mg SUBCUT .Q 7 DAYS RF: 0 acetaminophen [Tylenol] 325 mg tablet 325 mg PO QID PRNRF: 0 baclofen 10 mg tablet 10 mg PO TID RF: 0 ibuprofen 200 mg tablet 200 mg PO Q6H PRNRF: 0 zinc 50 mg tablet 50 mg PO DAILY RF: 0 cholecalciferol (vitamin D3) 50 mcg (2,000 unit) capsule 50 mcg PO DAILY RF: 0 ascorbic acid (vitamin C) 500 mg capsule PO RF: 0 Discharge Orders: Discharge ED (Routine); Ordered 08/21/21 Ordered By: Dominic Singh Referrals: Quyen Branham [Primary Care Provider] - 1-3 days Discharge Diet: Advance as tolerated Discharge Activity: Increase activity as tolerated Activity Restrictions/Additional Instructions: You should quarantine at home, until the results of your COVID-19 PCR are returned and are deemed negative. If your test turns positive, you would be a candidate for monoclonal antibody infusion. Please call [phone] and ask for the COVID-19 hotline during normal business hours if this is the case. You will be directed as to how to receive the antibody infusion. Return to the ER for worsening shortness of breath despite treatment, significant chest discomfort, vomiting liquids or medications despite treatment, uncontrolled fever, other concerning symptoms. Coding Level of Care Code ED Cargo Operations Agent for Jessica Cassidy Exam Detailed
[2021-08-21] MEDS: albuterol 8 gm MDI 2 PUFF INHALATION (05:42)
[2021-08-21 05:47] LABS: Influenza A by IFA Negative (Negative); Influenza B by IFA Negative (Negative); SARS Covid-2 Antigen Negative (Negative)
[2021-08-21 06:15] VITALS: BP 144/87; PULSE 87; RESP 18; O2SAT 96
[2021-08-21 14:30] LABS: Coronavirus Test Green County Not Detected
--- NOTE | 2021-08-21 17:57 | PC.NURSE ---
Pt notified of Negative COVID test
== END 2021-08-21 06:25 | disposition home or self-care (01) ==
PROVIDERS: Emergency Provider Emergency Medicine; PCP Registered Nurse
DX: B34.9 Viral infection, unspecified (principal); F17.210 Nicotine dependence, cigarettes, uncomplicated; Z20.822 Contact with and (suspected) exposure to COVID-19
CPT/HCPCS: 71045; 87426; 87635; 87804; 94640; 99283; J3535; J8540

== ENCOUNTER 2021-09-10 22:04 | Emergency (ER) | payer MEDICAID, SELFPAY ==
[2021-09-10 22:22] VITALS: BP 203/98; PULSE 89; RESP 16; TEMP 37.1; O2SAT 98; BMI 46.1
[2021-09-11 00:21] LABS: Add Urine Microscopic? YES; Bilirubin Urine Neg (Negative); Blood Urine 2+ (Negative); Glucose Urine UA Norm (Normal); Ketones Urine Negative (Negative); Leukocyte Esterase Urine Negative (Negative); Nitrate Urine Negative (Negative); Protein Urine Neg (Negative); Urine Appearance Clear (CLEAR); Urine Color Yellow (Yellow); Urobilinogen Urine Norm (Negative); pH Urine 5 (5-7)
[2021-09-11 00:24] LABS: Add Urine Culture? No; Bacteria Urine 2+ /hpf; RBC Urine 15-25 /hpf (0-2); Squamous Epithelial Cell Urine 15-25 /hpf (0-5); WBC Urine 0-4 /hpf (0-5)
--- NOTE | 2021-09-11 00:29 | ED_ITS ---
Documented by User: ANDRADE Donovan 09/11/21 01:37 HPI - General Adult General: Chief complaint: General Medical Stated complaint: Fever 101.6\ UTI Time Seen by Provider: 09/11/21 00:28 History of Present Illness: HPI narrative: Patient comes in for fever for the last 3 days with some nausea. Patient also reports some change in urination. Patient states it feels like and looks like there is blood in her urine. Patient denies any history of renal stones or frequent urinary tract infections. Patient does have a history of a hysterectomy. Review of Systems General: Reports: 10 or more systems reviewed and unremarkable except in HPI and below : Reports: difficulty voiding and hematuria PFSH ED PFSH: Family History Mother Colon cancer Diabetes Hyperlipidemia Hypertension Stroke Heart disease Father Diabetes Hypertension Thyroid disease Denies family history of Clotting disorder Chronic kidney disease (CKD) Bleeding disorder Social History (Updated 08/14/21 @ 10:30 by Rachelle Penaloza LPN) Smoking and tobacco status: current every day smoker cigarettes Quit status (tobacco): considering quitting Smoking risk assessment/counseling performed?: Yes Alcohol intake: never Caregiver/support person: Yes Lives independently: Yes History of recent travel: No Female Reproductive History: Date of last menstrual period: 02/12/21 Physical Exam Const: COMMON NORMALS: no acute distress and patient oriented x3 GENERAL APPEARANCE: cooperative HENMT: COMMON NORMALS: normocephalic and Normal external nose present HEAD & SCALP: normal to inspection and normocephalic NOSE: Normal external nose present MOUTH: Normal oral and palatal mucosa present Eye: GENERAL EYE: appearance normal, both eyes and all related structures Neck/C-Spine: COMMON NORMALS: full ROM Chest: COMMONS NORMALS: normal inspection of the chest Resp: COMMON NORMALS: normal respiratory effort EFFORT & INSPECTION: Yes able to speak in complete sentences Cardio: COMMON NORMALS: regular rate and regular rhythm RATE: regular rate RHYTHM: regular rhythm GI: COMMON NORMALS: non-tender : BLADDER/KIDNEY EXAM: Yes CVA tenderness bilateral Back/Pelvis: COMMON NORMALS: thoracic and lumbar spine normal to inspection GENERAL BACK: Yes CVA tenderness Extremity: COMMON NORMALS: normal to inspection Neuro: COMMON NORMALS: patient oriented x3 and moves all extremities Psych: COMMON NORMALS: mental status grossly normal and cooperative Skin: COMMON NORMALS: no rashes or lesions noted GENERAL SKIN EXAM: no rashes or lesions noted Course Vital Signs: Vital signs: Vital Signs Temperature 98.7 F 09/10/21 22:22 Pulse Rate 89 09/10/21 22:22 Respiratory Rate 16 09/10/21 22:22 Blood Pressure 203/98 09/10/21 22:22 Pulse Oximetry 98 09/10/21 22:22 MDM - General Adult MDM Narrative: Medical decision making narrative: 31-year-old female comes in today for complaints of blood in urine and lower abdominal discomfort. On exam patient appears well. Patient appears no acute distress. Abdomen is soft with some tenderness in the suprapubic area. Patient did have some CVA tenderness with percussion. Differential diagnosis includes but not limited to renal calculi, acute cystitis, pyelonephritis. Urine was noted to have a large amount of blood in it with some white blood cells. CT scan was ordered for rule out of renal calculi. CT noted no renal calculi or other abdominal process. CBC noted a white count of 15.4. Patient be treated for acute cystitis with hematuria to include Levaquin 500 daily for 7 days. Patient reported understanding of care plan and need for follow-up or return to the ER for worsening symptoms. Lab Data: Labs: Lab Results 09/10/21 09/11/21 09/11/21 23:29 01:00 01:00 WBC 15.4 10^3/uL H 10 ^3/uL (4.0-10.0) RBC 4.99 10^6/uL 10^6 /uL (4.1-5.3) Hgb 15.4 g/dL H g/dL (11.5-15.3) Hct 46.2 % % (37.0-47.0) MCV 92.6 fl fl (81-99) MCH 30.9 pg pg (28.0-34.0) MCHC 33.3 g/dL g/dL (30.0-36.0) RDW 13.7 % % (12.1-15.1) Plt Count 231 10^3/cmm 10^3 /cmm (130-400) MPV 10.6 fL H fL (7.4-10.4) Neut % (Auto) 54.8 % % Lymph % (Auto) 36.7 % % [place] % (Auto) 6.1 % % Eos % (Auto) 1.8 % % Baso % (Auto) 0.3 % % Neut # (Auto) 8.42 10^3/uL H 10 ^3/uL (1.8-7.7) Lymph # (Auto) 5.6 10^3/uL H 10^ 3/uL (0.8-4.8) [place] # (Auto) 0.9 10^3/uL 10^3/ uL (0.2-0.9) Eos # (Auto) 0.3 10^3/uL 10^3/ uL (0.0-0.8) Baso # (Auto) 0.0 10^3/uL 10^3/ uL (0.0-0.1) Nucleated RBC % (a uto) 0 % % Nucleated RBCs # 0.0 /100WBC /100W BC Sodium 139 mmol/L mmol/L (136-145) Potassium 3.8 mmol/L mmol/L (3.5-5.1) Chloride 104 mmol/L mmol/L (98-107) Carbon Dioxide 26 mmol/L mmol/L (22-29) Anion Gap 12.8 (5-19) BUN 11 mg/dL mg/dL (6-20) Creatinine 0.6 mg/dL mg/dL (0.5-0.9) GFR Calculation 115.1 mL/min mL/m in (90-130) Glucose 111 mg/dL mg/dL (65-115) Calculated Osmolal ity 288 mOsm/kg mOsm/ kg (285-295) Calcium 8.6 mg/dL mg/dL (8.5-10.5) Urine Color Yellow (Yellow) Urine Appearance Clear (CLEAR) Urine pH 5 (5-7) Ur Specific Gravit y 1.020 (1.005-1.030) Urine Protein Neg (Negative) Urine Glucose (UA) Norm (Normal) Urine Ketones Negative (Negative) Urine Blood 2+ H (Negative) Urine Nitrate Negative (Negative) Urine Bilirubin Neg (Negative) Urine Urobilinogen Norm mg/dL mg/dL (Negative) Ur Leukocyte Alina ase Negative (Negative) Urine RBC 15-25 /hpf H /hpf (0-2) Urine WBC 0-4 /hpf H /hpf (0-5) Ur Squamous Epith Cells 15-25 /hpf H /hpf (0-5) Amorphous Sediment Not Reportable Urine Bacteria 2+ /hpf H /hpf (NONE) Discharge Plan Discharge Patient Disposition: Home Clinical Impression: Acute cystitis Qualifiers: Hematuria presence: with hematuria Qualified Code(s): N30.01 - Acute cystitis with hematuria Condition: Stable Prescriptions: New levofloxacin 500 mg tablet 500 mg PO DAILY 7 Days RF: 0 No Action lisinopril 10 mg tablet 10 mg PO DAILY RF: 0 Humira 40 mg/0.8 mL syringe kit 40 mg SUBCUT .Q 7 DAYS RF: 0 acetaminophen [Tylenol] 325 mg tablet 325 mg PO QID PRNRF: 0 baclofen 10 mg tablet 10 mg PO TID RF: 0 ibuprofen 200 mg tablet 200 mg PO Q6H PRNRF: 0 zinc 50 mg tablet 50 mg PO DAILY RF: 0 cholecalciferol (vitamin D3) 50 mcg (2,000 unit) capsule 50 mcg PO DAILY RF: 0 ascorbic acid (vitamin C) 500 mg capsule PO RF: 0 dexamethasone 6 mg tablet 6 mg PO DAILY Qty: 5 RF: 0 Zofran 4 mg tablet 4 mg PO Q6H PRN (Reason: nausea and vomiting) Qty: 10 RF: 0 Discharge Orders: Discharge ED (Routine); Ordered 09/11/21 Ordered By: Micah Eng Referrals: Quyen Branham [Primary Care Provider] - Discharge Diet: Usual diet Discharge Activity: Increase activity as tolerated Patient Instructions: Urinary Tract Infection in Women (ED) Activity Restrictions/Additional Instructions: Drink plenty of water. Take antibiotic daily for the next 7 days. Follow-up with primary care in 1 week for recheck of urine. Return to the ER for worsening symptoms or new concerns. Coding Level of Care Code ED Productivity Engineer for Chg Fwd Exam Comprehensive Documented by User: Dominic Singh DO 09/11/21 02:10 HPI - General Adult General: Chief complaint: General Medical Stated complaint: Fever 101.6\ UTI Time Seen by Provider: 09/11/21 00:28 [facility] ED PFSH: Family History Mother Colon cancer Diabetes Hyperlipidemia Hypertension Stroke Heart disease Father Diabetes Hypertension Thyroid disease Denies family history of Clotting disorder Chronic kidney disease (CKD) Bleeding disorder Social History (Updated 08/14/21 @ 10:30 by Rachelle Penaloza LPN) Smoking and tobacco status: current every day smoker cigarettes Quit status (tobacco): considering quitting Smoking risk assessment/counseling performed?: Yes Alcohol intake: never Caregiver/support person: Yes Lives independently: Yes History of recent travel: No Course Vital Signs: Vital signs: Vital Signs Temperature 98.7 F 09/10/21 22:22 Pulse Rate 89 09/10/21 22:22 Respiratory Rate 16 09/10/21 22:22 Blood Pressure 203/98 09/10/21 22:22 Pulse Oximetry 98 09/10/21 22:22 MDM - General Adult MDM Narrative: Medical decision making narrative: This patient was originally seen by ANDRADE Fiore. I agree with his history, evaluation, and treatment. Lab Data: Labs: Lab Results 09/10/21 09/11/21 09/11/21 23:29 01:00 01:00 WBC 15.4 10^3/uL H 10 ^3/uL (4.0-10.0) RBC 4.99 10^6/uL 10^6 /uL (4.1-5.3) Hgb 15.4 g/dL H g/dL (11.5-15.3) Hct 46.2 % % (37.0-47.0) MCV 92.6 fl fl (81-99) MCH 30.9 pg pg (28.0-34.0) MCHC 33.3 g/dL g/dL (30.0-36.0) RDW 13.7 % % (12.1-15.1) Plt Count 231 10^3/cmm 10^3 /cmm (130-400) MPV 10.6 fL H fL (7.4-10.4) Neut % (Auto) 54.8 % % Lymph % (Auto) 36.7 % % [place] % (Auto) 6.1 % % Eos % (Auto) 1.8 % % Baso % (Auto) 0.3 % % Neut # (Auto) 8.42 10^3/uL H 10 ^3/uL (1.8-7.7) Lymph # (Auto) 5.6 10^3/uL H 10^ 3/uL (0.8-4.8) [place] # (Auto) 0.9 10^3/uL 10^3/ uL (0.2-0.9) Eos # (Auto) 0.3 10^3/uL 10^3/ uL (0.0-0.8) Baso # (Auto) 0.0 10^3/uL 10^3/ uL (0.0-0.1) Nucleated RBC % (a uto) 0 % % Nucleated RBCs # 0.0 /100WBC /100W BC Sodium 139 mmol/L mmol/L (136-145) Potassium 3.8 mmol/L mmol/L (3.5-5.1) Chloride 104 mmol/L mmol/L (98-107) Carbon Dioxide 26 mmol/L mmol/L (22-29) Anion Gap 12.8 (5-19) BUN 11 mg/dL mg/dL (6-20) Creatinine 0.6 mg/dL mg/dL (0.5-0.9) GFR Calculation 115.1 mL/min mL/m in (90-130) Glucose 111 mg/dL mg/dL (65-115) Calculated Osmolal ity 288 mOsm/kg mOsm/ kg (285-295) Calcium 8.6 mg/dL mg/dL (8.5-10.5) Urine Color Yellow (Yellow) Urine Appearance Clear (CLEAR) Urine pH 5 (5-7) Ur Specific Gravit y 1.020 (1.005-1.030) Urine Protein Neg (Negative) Urine Glucose (UA) Norm (Normal) Urine Ketones Negative (Negative) Urine Blood 2+ H (Negative) Urine Nitrate Negative (Negative) Urine Bilirubin Neg (Negative) Urine Urobilinogen Norm mg/dL mg/dL (Negative) Ur Leukocyte Alina ase Negative (Negative) Urine RBC 15-25 /hpf H /hpf (0-2) Urine WBC 0-4 /hpf H /hpf (0-5) Ur Squamous Epith Cells 15-25 /hpf H /hpf (0-5) Amorphous Sediment Not Reportable Urine Bacteria 2+ /hpf H /hpf (NONE) Discharge Plan Discharge Patient Disposition: Home Clinical Impression: Acute cystitis Qualifiers: Hematuria presence: with hematuria Qualified Code(s): N30.01 - Acute cystitis with hematuria Condition: Stable Prescriptions: New levofloxacin 500 mg tablet 500 mg PO DAILY 7 Days RF: 0 No Action lisinopril 10 mg tablet 10 mg PO DAILY RF: 0 Humira 40 mg/0.8 mL syringe kit 40 mg SUBCUT .Q 7 DAYS RF: 0 acetaminophen [Tylenol] 325 mg tablet 325 mg PO QID PRNRF: 0 baclofen 10 mg tablet 10 mg PO TID RF: 0 ibuprofen 200 mg tablet 200 mg PO Q6H PRNRF: 0 zinc 50 mg tablet 50 mg PO DAILY RF: 0 cholecalciferol (vitamin D3) 50 mcg (2,000 unit) capsule 50 mcg PO DAILY RF: 0 ascorbic acid (vitamin C) 500 mg capsule PO RF: 0 dexamethasone 6 mg tablet 6 mg PO DAILY Qty: 5 RF: 0 Zofran 4 mg tablet 4 mg PO Q6H PRN (Reason: nausea and vomiting) Qty: 10 RF: 0 Discharge Orders: Discharge ED (Routine); Ordered 09/11/21 Ordered By: Micah Eng Referrals: Quyen Branham [Primary Care Provider] - Discharge Diet: Usual diet Discharge Activity: Increase activity as tolerated Patient Instructions: Urinary Tract Infection in Women (ED) Activity Restrictions/Additional Instructions: Drink plenty of water. Take antibiotic daily for the next 7 days. Follow-up with primary care in 1 week for recheck of urine. Return to the ER for worsening symptoms or new concerns. Coding Level of Care Code ED Productivity Engineer for Jessica Fwd Exam Comprehensive
--- NOTE | 2021-09-11 00:38 | CTR_ITS ---
PROCEDURE INFORMATION: Exam: CT Abdomen And Pelvis Without Contrast Exam date and time: 09/11/2021 12:38 AM Age: 31 years old Clinical indication: Abdominal pain; Flank; Right; Prior surgery; Surgery date: 6+ months; Surgery type: Hyst, gb, appy; Additional info: Hematuria, right flank pain, HX of hysterectomy TECHNIQUE: Imaging protocol: Computed tomography of the abdomen and pelvis without contrast. Radiation optimization: All CT scans at this facility use at least one of these dose optimization techniques: automated exposure control; mA and/or kV adjustment per patient size (includes targeted exams where dose is matched to clinical indication); or iterative reconstruction. COMPARISON: US transvaginal [id number] 02/13/2021 3:02 AM RADIATION DOSE METRICS: Total DLP (mGy-cm): 2147.31 FINDINGS: Liver: Normal. No mass. Gallbladder and bile ducts: Status post cholecystectomy. Pancreas: Normal. No ductal dilation. Spleen: Normal. No splenomegaly. Adrenal glands: Normal. No mass. Kidneys and ureters: Normal. No hydronephrosis. Stomach and bowel: Unremarkable. No obstruction. No mucosal thickening. Appendix: Status post appendectomy. Intraperitoneal space: Unremarkable. No free air. No significant fluid collection. Vasculature: Unremarkable. No abdominal aortic aneurysm. Lymph nodes: Unremarkable. No enlarged lymph nodes. Urinary bladder: Unremarkable as visualized. Reproductive: Status post hysterectomy. Bones/joints: Unremarkable. No acute fracture. Soft tissues: Unremarkable. CT/CT kidney stone [id number] IMPRESSION: 1. There are no acute abdominal findings. 2. There is no evidence for ureteral obstruction.
[2021-09-11 01:16] LABS: Basophils % 0.3 %; Eosinophils # 0.3 10^3/uL (0.0-0.8); Eosinophils % 1.8 %; Hematocrit 46.2 % (37.0-47.0); Hemoglobin 15.4 g/dL (11.5-15.3); Lymphocytes # 5.6 10^3/uL (0.8-4.8); Lymphocytes % 36.7 %; Mean Corpuscular HGB Conc 33.3 g/dL (30.0-36.0); Mean Corpuscular Hemoglobin 30.9 pg (28.0-34.0); Mean Corpuscular Volume 92.6 fl (81-99); Mean Platelet Volume 10.6 fL (7.4-10.4); Monocytes # 0.9 10^3/uL (0.2-0.9); Monocytes % 6.1 %; Neutrophils # 8.42 10^3/uL (1.8-7.7); Neutrophils % 54.8 %; Nucleated Red Blood Cells % 0 %; Platelet Count 231 10^3/cmm (130-400); Red Blood Count 4.99 10^6/uL (4.1-5.3); Red Cell Distribution Width 13.7 % (12.1-15.1); White Blood Count 15.4 10^3/uL (4.0-10.0)
[2021-09-11 01:38] LABS: Anion Gap 12.8 (5-19); Blood Urea Nitrogen 11 mg/dL (6-20); Calcium 8.6 mg/dL (8.5-10.5); Carbon Dioxide 26 mmol/L (22-29); Chloride 104 mmol/L (98-107); Glomerular Filtration Rate 115.1 mL/min (90-130); Glucose 111 mg/dL (65-115); Osmolality Calculated 288 mOsm/kg (285-295); Potassium 3.8 mmol/L (3.5-5.1); Sodium 139 mmol/L (136-145)
[2021-09-11] MEDS: levoFLOXacin 500 mg Tablet PO (01:38)
== END 2021-09-11 01:39 | disposition home or self-care (01) ==
PROVIDERS: Emergency Medicine; Emergency Provider Nurse Practitioner Family; PCP Registered Nurse
DX: N30.01 Acute cystitis with hematuria (principal); F17.210 Nicotine dependence, cigarettes, uncomplicated
CPT/HCPCS: 74176; 80048; 81001; 81003; 85025; 99283

== ENCOUNTER 2021-10-01 02:36 | Emergency (ER) | payer MEDICAID, SELFPAY ==
[2021-10-01 02:43] VITALS: BP 154/101; PULSE 82; RESP 18; TEMP 36.5; O2SAT 97; BMI 48.4
--- NOTE | 2021-10-01 02:55 | PC.NURSE ---
patient states treated for UTI 2 weeks ago and then had teeth pulled but told just to keep taking the same antibiotics. reports minimal pain from teeth but was running fever today 102F and had to go to work. states pelvic pain and states diarrhea every other day. reports drinking water and has cut soda's. to restroom for urine sample.
--- NOTE | 2021-10-01 03:03 | ED_ITS ---
HPI - Abdominal Pain General: Chief Complaint: Abdominal Pain Stated Complaint: N/V Fever, had teeth pulled Time Seen by Provider: 10/01/21 02:43 Source: patient Mode of arrival: ambulatory Limitations: no limitations History of Present Illness: HPI narrative: 31-year-old female who states she has been having abdominal pain for the last 2 to 3 weeks she was diagnosed with a UTI lower 2 weeks ago states she finished her course of antibiotics but has had no improvement. States the pain is sharp in nature in her lower abdomen. She states she has had some intermittent constipation and diarrhea. She has had an appendectomy cholecystectomy and hysterectomy. Denies any fever she has had nauseadenies any worsening improving factors. Associated Symptoms: Reports diarrhea and nausea; Denies chills, dysuria and fever(s) Related Data: Date of Last Menstrual Period: 02/12/21 Review of Systems Const: Denies: fever(s), chills, body aches or change in appetite Eyes: Denies: blurry vision or eye discomfort ENMT: Denies: throat pain or dental pain Card: Denies: chest pain Resp: Denies: dyspnea GI: Reports: abdominal pain, nausea and diarrhea : Denies: dysuria Musc: Denies: neck pain or back pain Skin/Breast: Denies: rash Neuro: Denies: headache(s) Psych: Denies: depression Ezekiel/Lymph: Denies: easy bruising All/Imm: Denies: urticaria PFSH ED PFSH: Family History Mother Colon cancer Diabetes Hyperlipidemia Hypertension Stroke Heart disease Father Diabetes Hypertension Thyroid disease Denies family history of Clotting disorder Chronic kidney disease (CKD) Bleeding disorder Social History Smoking and tobacco status: current every day smoker cigarettes Quit status (tobacco): considering quitting Smoking risk assessment/counseling performed?: Yes Alcohol intake: never Caregiver/support person: Yes Lives independently: Yes History of recent travel: No Female Reproductive History: Date of last menstrual period: 02/12/21 Physical Exam Const: COMMON NORMALS: no acute distress, patient oriented x3 and healthy appearing HENMT: COMMON NORMALS: normocephalic and atraumatic HEAD & SCALP: normocephalic and atraumatic Eye: COMMON NORMALS: Equal, round and reactive pupils present and EOMs intact bilaterally PUPIL: Yes Equal, round and reactive pupils present Neck/C-Spine: COMMON NORMALS: full ROM and supple Chest: COMMONS NORMALS: normal inspection of the chest and normal palpation of entire chest wall Resp: COMMON NORMALS: normal respiratory effort, No retractions, No use of accessory muscles and clear to auscultation bilaterally AUSCULTATION: clear to auscultation bilaterally Cardio: COMMON NORMALS: regular rate, regular rhythm and No murmurs present (Cardio) RATE: regular rate RHYTHM: regular rhythm GI: COMMON NORMALS: Normal to inspection, nondistended, normoactive bowel sounds present, Soft to palpation, non-tender and no masses PALPATION: Yes Soft to palpation Extremity: COMMON NORMALS: normal to inspection and full ROM Neuro: COMMON NORMALS: patient oriented x3, moves all extremities and no focal motor deficits Psych: COMMON NORMALS: mental status grossly normal, Normal thought process present and cooperative THOUGHT PROCESS: Normal thought process present Skin: COMMON NORMALS: no rashes or lesions noted and no wounds GENERAL SKIN EXAM: no rashes or lesions noted Course Vital Signs: Vital signs: Vital Signs Temperature 97.7 F 10/01/21 02:43 Pulse Rate 82 10/01/21 02:43 Respiratory Rate 17 10/01/21 03:18 Blood Pressure 154/101 10/01/21 02:43 Pulse Oximetry 97 10/01/21 02:43 MDM - Abdominal Pain MDM Narrative: Medical decision making narrative: Patient presents here with abdominal pains been going on for weeks patient's blood work here shows no acute abnormalities besides an elevated white count that appears chronic. CT of her abdomen here shows no acute findings no urinary tract infection. We will start her on dicyclomine she is to follow-up with her PCP and return if worsening. Lab Data: Labs: Lab Results 10/01/21 10/01/21 10/01/21 02:57 03:16 03:16 WBC 16.5 10^3/uL H 10 ^3/uL (4.0-10.0) RBC 4.92 10^6/uL 10^6 /uL (4.1-5.3) Hgb 15.0 g/dL g/dL (11.5-15.3) Hct 46.6 % % (37.0-47.0) MCV 94.7 fl fl (81-99) MCH 30.5 pg pg (28.0-34.0) MCHC 32.2 g/dL g/dL (30.0-36.0) RDW 13.2 % % (12.1-15.1) Plt Count 190 10^3/cmm 10^3 /cmm (130-400) MPV 10.8 fL H fL (7.4-10.4) Neut % (Auto) 52.6 % % Lymph % (Auto) 37.0 % % [facility] % (Auto) 7.5 % % Eos % (Auto) 2.0 % % Baso % (Auto) 0.4 % % Neut # (Auto) 8.67 10^3/uL H 10 ^3/uL (1.8-7.7) Lymph # (Auto) 6.1 10^3/uL H 10^ 3/uL (0.8-4.8) [facility] # (Auto) 1.2 10^3/uL H 10^ 3/uL (0.2-0.9) Eos # (Auto) 0.3 10^3/uL 10^3/ uL (0.0-0.8) Baso # (Auto) 0.1 10^3/uL 10^3/ uL (0.0-0.1) Nucleated RBC % (a uto) 0 % % Nucleated RBCs # 0.0 /100WBC /100W BC Sodium Cancelled Potassium Cancelled Chloride Cancelled Carbon Dioxide Cancelled Anion Gap Cancelled BUN Cancelled Creatinine Cancelled GFR Calculation Cancelled Glucose Cancelled Calculated Osmolal ity Cancelled Calcium Cancelled Total Bilirubin Cancelled AST Cancelled ALT Cancelled Alkaline Phosphata se Cancelled Total Protein Cancelled Albumin Cancelled Globulin Cancelled Lipase Cancelled Urine Color Yellow (Yellow) Urine Appearance Clear (CLEAR) Urine pH 6.5 (5-7) Ur Specific Gravit y 1.010 (1.005-1.030) Urine Protein Neg (Negative) Urine Glucose (UA) Norm (Normal) Urine Ketones Negative (Negative) Urine Blood 2+ H (Negative) Urine Nitrate Negative (Negative) Urine Bilirubin Neg (Negative) Urine Urobilinogen Norm mg/dL mg/dL (Negative) Ur Leukocyte Alina ase Negative (Negative) Urine RBC 5-10 /hpf H /hpf (0-2) Urine WBC 0-4 /hpf H /hpf (0-5) Ur Squamous Epith Cells 5-10 /hpf H /hpf (0-5) Amorphous Sediment Not Reportable Urine Bacteria 1+ /hpf H /hpf (NONE) 10/01/21 03:44 WBC RBC Hgb Hct MCV MCH MCHC RDW Plt Count MPV Neut % (Auto) Lymph % (Auto) [facility] % (Auto) Eos % (Auto) Baso % (Auto) Neut # (Auto) Lymph # (Auto) [facility] # (Auto) Eos # (Auto) Baso # (Auto) Nucleated RBC % (a uto) Nucleated RBCs # Sodium 138 mmol/L mmol/L (136-145) Potassium 3.8 mmol/L mmol/L (3.5-5.1) Chloride 105 mmol/L mmol/L (98-107) Carbon Dioxide 23 mmol/L mmol/L (22-29) Anion Gap 13.8 (5-19) BUN 10 mg/dL mg/dL (6-20) Creatinine 0.6 mg/dL mg/dL (0.5-0.9) GFR Calculation 115.1 mL/min mL/m in (90-130) Glucose 79 mg/dL mg/dL (65-115) Calculated Osmolal ity 284 mOsm/kg L mOs m/kg (285-295) Calcium 7.9 mg/dL L mg/dL (8.5-10.5) Total Bilirubin 0.2 mg/dL mg/dL (0.15-1.2) AST 13 U/L U/L (0-32) ALT 18 U/L U/L (0-33) Alkaline Phosphata se 68 IU/L IU/L (35-105) Total Protein 6.1 g/dL L g/dL (6.6-8.7) Albumin 3.2 g/dL L g/dL (3.5-5.2) Globulin 2.9 g/dL g/dL (1.3-4.6) Lipase 29 U/L U/L (13-60) Urine Color Urine Appearance Urine pH Ur Specific Gravit y Urine Protein Urine Glucose (UA) Urine Ketones Urine Blood Urine Nitrate Urine Bilirubin Urine Urobilinogen Ur Leukocyte Alina ase Urine RBC Urine WBC Ur Squamous Epith Cells Amorphous Sediment Urine Bacteria Imaging Data ^: CT Abd/Pel: Attestation: I personally reviewed and interpreted this imaging study as follows: Radiologist's impression: No acute findings. Discharge Plan Discharge Patient Disposition: Home Clinical Impression: Abdominal pain Qualifiers: Abdominal location: generalized Qualified Code(s): R10.84 - Generalized abdominal pain Condition: Stable Prescriptions: New dicyclomine 20 mg tablet 20 mg PO TID PRN (Reason: abdominal pain) Qty: 20 RF: 0 No Action lisinopril 10 mg tablet 10 mg PO DAILY RF: 0 Humira 40 mg/0.8 mL syringe kit 40 mg SUBCUT .Q 7 DAYS RF: 0 acetaminophen [Tylenol] 325 mg tablet 325 mg PO QID PRNRF: 0 baclofen 10 mg tablet 10 mg PO TID RF: 0 ibuprofen 200 mg tablet 200 mg PO Q6H PRNRF: 0 zinc 50 mg tablet 50 mg PO DAILY RF: 0 cholecalciferol (vitamin D3) 50 mcg (2,000 unit) capsule 50 mcg PO DAILY RF: 0 ascorbic acid (vitamin C) 500 mg capsule PO RF: 0 dexamethasone 6 mg tablet 6 mg PO DAILY Qty: 5 RF: 0 Zofran 4 mg tablet 4 mg PO Q6H PRN (Reason: nausea and vomiting) Qty: 10 RF: 0 Discharge Orders: Discharge ED (Routine); Ordered 10/01/21 Ordered By: Brian Pate Referrals: Quyen Branham [Primary Care Provider] - 4-7 days Discharge Diet: Advance as tolerated Discharge Activity: Resume usual activity Patient Instructions: Abdominal Pain (ED) Coding Level of Care Code ED [employer] Operator for Chg Fwd Exam Comprehensive
[2021-10-01 03:18] VITALS: RESP 17
[2021-10-01] MEDS: morphine 4 mg/mL SDV 1 mL IVP (03:18)
[2021-10-01] MEDS: sodium chloride 0.9% 1,000 ML 999 ML IV (03:19)
[2021-10-01] MEDS: ondansetron 2 mg/ML SDV 2 mL 4 MG IVP (03:19)
[2021-10-01 03:25] LABS: Basophils # 0.1 10^3/uL (0.0-0.1); Basophils % 0.4 %; Eosinophils # 0.3 10^3/uL (0.0-0.8); Hematocrit 46.6 % (37.0-47.0); Lymphocytes # 6.1 10^3/uL (0.8-4.8); Mean Corpuscular HGB Conc 32.2 g/dL (30.0-36.0); Mean Corpuscular Hemoglobin 30.5 pg (28.0-34.0); Mean Corpuscular Volume 94.7 fl (81-99); Mean Platelet Volume 10.8 fL (7.4-10.4); Monocytes # 1.2 10^3/uL (0.2-0.9); Monocytes % 7.5 %; Neutrophils # 8.67 10^3/uL (1.8-7.7); Neutrophils % 52.6 %; Nucleated Red Blood Cells % 0 %; Platelet Count 190 10^3/cmm (130-400); Red Blood Count 4.92 10^6/uL (4.1-5.3); Red Cell Distribution Width 13.2 % (12.1-15.1); White Blood Count 16.5 10^3/uL (4.0-10.0)
[2021-10-01 03:38] LABS: Add Urine Microscopic? YES; Bilirubin Urine Neg (Negative); Blood Urine 2+ (Negative); Glucose Urine UA Norm (Normal); Ketones Urine Negative (Negative); Leukocyte Esterase Urine Negative (Negative); Nitrate Urine Negative (Negative); Protein Urine Neg (Negative); Urine Appearance Clear (CLEAR); Urine Color Yellow (Yellow); Urobilinogen Urine Norm (Negative); pH Urine 6.5 (5-7)
[2021-10-01 03:42] LABS: WBC Urine 0-4 /hpf (0-5)
--- NOTE | 2021-10-01 03:42 | CTR_ITS ---
PROCEDURE INFORMATION: Exam: CT Abdomen And Pelvis With Contrast Exam date and time: 10/01/2021 3:42 AM Age: 31 years old Clinical indication: Nausea; Prior surgery; Surgery date: 6+ months; Surgery type: Hyst, gb, appy; Additional info: Abd pain TECHNIQUE: Imaging protocol: Computed tomography of the abdomen and pelvis with contrast. Radiation optimization: All CT scans at this facility use at least one of these dose optimization techniques: automated exposure control; mA and/or kV adjustment per patient size (includes targeted exams where dose is matched to clinical indication); or iterative reconstruction. Contrast material: OMNI 300; Contrast volume: 95 ml; Contrast route: INTRAVENOUS (IV); COMPARISON: 1. CT kidney stone [id number] 2021-09-11 00:46 2. US transvaginal [id number] 2021-02-13 03:02 RADIATION DOSE METRICS: Total DLP (mGy-cm): 1786.72 FINDINGS: Limitations: Limited by patient's body habitus. Liver: Normal. No mass. Gallbladder and bile ducts: Cholecystectomy clips in the right upper quadrant. Pancreas: Normal. No ductal dilation. Spleen: Normal. No splenomegaly. Adrenal glands: Normal. No mass. Kidneys and ureters: Normal. No hydronephrosis. Stomach and bowel: Couple colonic diverticula without acute inflammation. Appendix: Appendectomy. Intraperitoneal space: Unremarkable. No free air. No significant fluid collection. Vasculature: Unremarkable. No abdominal aortic aneurysm. Lymph nodes: Unremarkable. No enlarged lymph nodes. Urinary bladder: Unremarkable as visualized. Reproductive: Hysterectomy. Bones/joints: Mild sacroiliitis. Soft tissues: Small para umbilical fat protruding hernia. CT/CT abdomen pelvis w con* [id number] IMPRESSION: No acute findings.
[2021-10-01 03:43] LABS: Add Urine Culture? No; Bacteria Urine 1+ /hpf
[2021-10-01 03:45] LABS: Slide Review Slide Review Perform
[2021-10-01] MEDS: iohexol 300 mg/mL 100 mL Btl IV (04:13)
[2021-10-01 04:15] LABS: Alanine Aminotransferase 18 U/L (0-33); Albumin Level 3.2 g/dL (3.5-5.2); Alkaline Phosphatase 68 IU/L (35-105); Anion Gap 13.8 (5-19); Aspartate Amino Transferase 13 U/L (0-32); Blood Urea Nitrogen 10 mg/dL (6-20); Calcium 7.9 mg/dL (8.5-10.5); Carbon Dioxide 23 mmol/L (22-29); Chloride 105 mmol/L (98-107); Globulin 2.9 g/dL (1.3-4.6); Glomerular Filtration Rate 115.1 mL/min (90-130); Glucose 79 mg/dL (65-115); Lipase 29 U/L (13-60); Osmolality Calculated 284 mOsm/kg (285-295); Potassium 3.8 mmol/L (3.5-5.1); Sodium 138 mmol/L (136-145); Total Bilirubin 0.2 mg/dL (0.15-1.2); Total Protein 6.1 g/dL (6.6-8.7)
== END 2021-10-01 04:38 | disposition home or self-care (01) ==
PROVIDERS: Emergency Provider Emergency Medicine; PCP Registered Nurse
DX: R10.84 Generalized abdominal pain (principal); F17.210 Nicotine dependence, cigarettes, uncomplicated
CPT/HCPCS: 74177; 80053; 81001; 83690; 85025; 96361; 96374; 96375; 99284; J2270; J2405; J7030; Q9967

== ENCOUNTER 2021-10-07 00:18 | Emergency (ER) | payer MEDICAID, SELFPAY ==
[2021-10-07 00:21] VITALS: BP 161/82; PULSE 91; RESP 18; TEMP 36.7; O2SAT 100; BMI 43.5
--- NOTE | 2021-10-07 00:52 | ED_ITS ---
Documented by User: ANDRADE Donovan 10/07/21 02:10 HPI - Chest Pain General: Chief Complaint: Chest Pain Stated Complaint: Chest Pains Time Seen by Provider: 10/07/21 00:52 History of Present Illness: HPI narrative: 31-year-old female comes in today with complaints of chest discomfort. Patient reports that she got off of off the toilet and started having some chest pain. Patient felt like she was going to pass out due to the pain. Patient appears well. Patient appears in moderate pain. Patient has a history of hypertension. Patient has had a gallbladder, appendectomy, and hysterectomy surgeries. MD complaint: chest pain Review of Systems Card: Reports: chest pain [facility] ED PFSH: Family History Mother Colon cancer Diabetes Hyperlipidemia Hypertension Stroke Heart disease Father Diabetes Hypertension Thyroid disease Denies family history of Clotting disorder Chronic kidney disease (CKD) Bleeding disorder Social History Smoking and tobacco status: current every day smoker cigarettes Quit status (tobacco): considering quitting Smoking risk assessment/counseling performed?: Yes Alcohol intake: never Caregiver/support person: Yes Lives independently: Yes History of recent travel: No Female Reproductive History: Date of last menstrual period: 02/12/21 Physical Exam Const: COMMON NORMALS: patient oriented x3 and alert GENERAL APPEARANCE: cooperative NUTRITIONAL APPEARANCE: obese Resp: COMMON NORMALS: normal respiratory effort and clear to auscultation bilaterally AUSCULTATION: clear to auscultation bilaterally Cardio: COMMON NORMALS: regular rate and regular rhythm RATE: regular rate RHYTHM: regular rhythm GI: COMMON NORMALS: Soft to palpation PALPATION: Yes Soft to palpation and No Tenderness to palpation present (GI) Extremity: COMMON NORMALS: normal to inspection GENERAL: No edema Neuro: COMMON NORMALS: patient oriented x3 SENSORIUM/ORIENTATION: Yes alert Psych: ATTITUDE: Yes calm Skin: COMMON NORMALS: no rashes or lesions noted GENERAL SKIN EXAM: no rashes or lesions noted Course Vital Signs: Vital signs: Vital Signs Temperature 98.1 F 10/07/21 00:21 Pulse Rate 91 10/07/21 00:21 Respiratory Rate 16 10/07/21 01:19 Blood Pressure 161/82 10/07/21 00:21 Pulse Oximetry 100 10/07/21 00:21 MDM - Chest Pain MDM Narrative: Medical decision making narrative: 31-year-old female comes in today with complaints of chest discomfort. Patient reports that she was arising from the toilet and had sudden onset of chest pain. Patient felt like she was going to pass out. Patient comes in to the ER continues to complaint of chest pain. Patient appears in mild to moderate pain. On exam lungs are clear to auscultation, heart rates regular without any ectopy. Abdomen soft nontender. No edema is noted in the lower extremities. Vital signs are normal. Differential diagnosis includes but not limited to ACS, anxiety, musculoskeletal pain, malingering. Laboratory values noted some mild leukocytosis. Review of the record notes the patient's had this leukocytosis has been normal on her labs at least for the last 6 months. Chest x-ray was normal. Troponin was 8, EKG was normal sinus rhythm. I do not think the patient has any cardiac related chest pain. Believe the patient probably has musculoskeletal pain versus anxiety. I recommended patient follow-up with primary care for further evaluation and treatment. Patient was given 7 tablets of hydrocodone to assist for pain. Encourage plenty of fluids. Patient reported understanding of care plan and need for follow-up or return to the ER. I recommended patient monitor for fever due to her elevation in leukocytosis. Lab Data: Labs: Lab Results 10/07/21 10/07/21 10/07/21 01:09 01:09 01:09 WBC 15.9 10^3/uL H 10 ^3/uL (4.0-10.0) RBC 4.96 10^6/uL 10^6 /uL (4.1-5.3) Hgb 15.2 g/dL g/dL (11.5-15.3) Hct 46.4 % % (37.0-47.0) MCV 93.5 fl fl (81-99) MCH 30.6 pg pg (28.0-34.0) MCHC 32.8 g/dL g/dL (30.0-36.0) RDW 13.4 % % (12.1-15.1) Plt Count 205 10^3/cmm 10^3 /cmm (130-400) MPV 10.7 fL H fL (7.4-10.4) Neut % (Auto) 61.4 % % Lymph % (Auto) 30.1 % % Morrow % (Auto) 6.1 % % Eos % (Auto) 1.8 % % Baso % (Auto) 0.3 % % Neut # (Auto) 9.74 10^3/uL H 10 ^3/uL (1.8-7.7) Lymph # (Auto) 4.8 10^3/uL 10^3/ uL (0.8-4.8) Morrow # (Auto) 1.0 10^3/uL H 10^ 3/uL (0.2-0.9) Eos # (Auto) 0.3 10^3/uL 10^3/ uL (0.0-0.8) Baso # (Auto) 0.0 10^3/uL 10^3/ uL (0.0-0.1) Nucleated RBC % (a uto) 0 % % Nucleated RBCs # 0.0 /100WBC /100W BC Sodium 136 mmol/L mmol/L (136-145) Potassium 3.8 mmol/L mmol/L (3.5-5.1) Chloride 104 mmol/L mmol/L (98-107) Carbon Dioxide 19 mmol/L L mmol/ L (22-29) Anion Gap 16.8 (5-19) BUN 12 mg/dL mg/dL (6-20) Creatinine 0.5 mg/dL mg/dL (0.5-0.9) GFR Calculation 142.1 mL/min H mL /min (90-130) Glucose 118 mg/dL H mg/dL (65-115) Calculated Osmolal ity 283 mOsm/kg L mOs m/kg (285-295) Calcium 8.7 mg/dL mg/dL (8.5-10.5) Total Bilirubin 0.4 mg/dL mg/dL (0.15-1.2) AST 14 U/L U/L (0-32) ALT 20 U/L U/L (0-33) Alkaline Phosphata se 76 IU/L IU/L (35-105) Troponin T Gen 5 n g/L 8 ng/L ng/L (0-10) Total Protein 6.9 g/dL g/dL (6.6-8.7) Albumin 3.7 g/dL g/dL (3.5-5.2) Globulin 3.2 g/dL g/dL (1.3-4.6) EKG Data^: EKG 1: Attestation: I personally reviewed and interpreted this EKG as follows: (0100, EKG shows normal sinus rhythm with a regular rate at 88 bpm. No sign of ectopy or ST elevation. There is mild artifact on the EKG. No prior exam was available for comparison at this time.) Discharge Plan Discharge Patient Disposition: Home Clinical Impression: Non-cardiac chest pain Condition: Stable Prescriptions: New hydrocodone-acetaminophen 5-325 mg tablet 1 tab PO Q8H PRN (Reason: pain (scale score 7-10)) Qty: 7 RF: 0 No Action lisinopril 10 mg tablet 10 mg PO DAILY RF: 0 Humira 40 mg/0.8 mL syringe kit 40 mg SUBCUT .Q 7 DAYS RF: 0 acetaminophen [Tylenol] 325 mg tablet 325 mg PO QID PRNRF: 0 baclofen 10 mg tablet 10 mg PO TID RF: 0 ibuprofen 200 mg tablet 200 mg PO Q6H PRNRF: 0 zinc 50 mg tablet 50 mg PO DAILY RF: 0 cholecalciferol (vitamin D3) 50 mcg (2,000 unit) capsule 50 mcg PO DAILY RF: 0 ascorbic acid (vitamin C) 500 mg capsule PO RF: 0 dexamethasone 6 mg tablet 6 mg PO DAILY Qty: 5 RF: 0 Zofran 4 mg tablet 4 mg PO Q6H PRN (Reason: nausea and vomiting) Qty: 10 RF: 0 dicyclomine 20 mg tablet 20 mg PO TID PRN (Reason: abdominal pain) Qty: 20 RF: 0 Discharge Orders: Discharge ED (Routine); Ordered 10/07/21 Ordered By: Micah Eng Referrals: Quyen Branham [Primary Care Provider] - Discharge Diet: Usual diet Discharge Activity: Increase activity as tolerated Patient Instructions: Noncardiac Chest Pain (ED), Opioid Safety Activity Restrictions/Additional Instructions: Home and rest. Activity as tolerated. Use ice or heat to the chest wall for comfort. Drink plenty of water with medication. Follow-up with primary care for further instruction. Return to the ER for new concerns. Coding Level of Care Code ED Speech Language Pathologist Travel for Chg Fwd Exam Detailed Documented by User: Dominic Singh DO 10/07/21 03:14 HPI - Chest Pain General: Chief Complaint: Chest Pain Stated Complaint: Chest Pains Time Seen by Provider: 10/07/21 00:52 PFSH ED PFSH: Family History Mother Colon cancer Diabetes Hyperlipidemia Hypertension Stroke Heart disease Father Diabetes Hypertension Thyroid disease Denies family history of Clotting disorder Chronic kidney disease (CKD) Bleeding disorder Social History Smoking and tobacco status: current every day smoker cigarettes Quit status (tobacco): considering quitting Smoking risk assessment/counseling performed?: Yes Alcohol intake: never Caregiver/support person: Yes Lives independently: Yes History of recent travel: No Course Vital Signs: Vital signs: Vital Signs Temperature 98.1 F 10/07/21 00:21 Pulse Rate 91 10/07/21 00:21 Respiratory Rate 16 10/07/21 01:19 Blood Pressure 161/82 10/07/21 00:21 Pulse Oximetry 100 10/07/21 00:21 MDM - Chest Pain MDM Narrative: Medical decision making narrative: This patient was originally seen by ANDRADE Fiore. I agree with his history, evaluation, and treatment. Lab Data: Labs: Lab Results 10/07/21 10/07/21 10/07/21 01:09 01:09 01:09 WBC 15.9 10^3/uL H 10 ^3/uL (4.0-10.0) RBC 4.96 10^6/uL 10^6 /uL (4.1-5.3) Hgb 15.2 g/dL g/dL (11.5-15.3) Hct 46.4 % % (37.0-47.0) MCV 93.5 fl fl (81-99) MCH 30.6 pg pg (28.0-34.0) MCHC 32.8 g/dL g/dL (30.0-36.0) RDW 13.4 % % (12.1-15.1) Plt Count 205 10^3/cmm 10^3 /cmm (130-400) MPV 10.7 fL H fL (7.4-10.4) Neut % (Auto) 61.4 % % Lymph % (Auto) 30.1 % % Morrow % (Auto) 6.1 % % Eos % (Auto) 1.8 % % Baso % (Auto) 0.3 % % Neut # (Auto) 9.74 10^3/uL H 10 ^3/uL (1.8-7.7) Lymph # (Auto) 4.8 10^3/uL 10^3/ uL (0.8-4.8) Morrow # (Auto) 1.0 10^3/uL H 10^ 3/uL (0.2-0.9) Eos # (Auto) 0.3 10^3/uL 10^3/ uL (0.0-0.8) Baso # (Auto) 0.0 10^3/uL 10^3/ uL (0.0-0.1) Nucleated RBC % (a uto) 0 % % Nucleated RBCs # 0.0 /100WBC /100W BC Sodium 136 mmol/L mmol/L (136-145) Potassium 3.8 mmol/L mmol/L (3.5-5.1) Chloride 104 mmol/L mmol/L (98-107) Carbon Dioxide 19 mmol/L L mmol/ L (22-29) Anion Gap 16.8 (5-19) BUN 12 mg/dL mg/dL (6-20) Creatinine 0.5 mg/dL mg/dL (0.5-0.9) GFR Calculation 142.1 mL/min H mL /min (90-130) Glucose 118 mg/dL H mg/dL (65-115) Calculated Osmolal ity 283 mOsm/kg L mOs m/kg (285-295) Calcium 8.7 mg/dL mg/dL (8.5-10.5) Total Bilirubin 0.4 mg/dL mg/dL (0.15-1.2) AST 14 U/L U/L (0-32) ALT 20 U/L U/L (0-33) Alkaline Phosphata se 76 IU/L IU/L (35-105) Troponin T Gen 5 n g/L 8 ng/L ng/L (0-10) Total Protein 6.9 g/dL g/dL (6.6-8.7) Albumin 3.7 g/dL g/dL (3.5-5.2) Globulin 3.2 g/dL g/dL (1.3-4.6) Discharge Plan Discharge Patient Disposition: Home Clinical Impression: Non-cardiac chest pain Condition: Stable Prescriptions: New hydrocodone-acetaminophen 5-325 mg tablet 1 tab PO Q8H PRN (Reason: pain (scale score 7-10)) Qty: 7 RF: 0 No Action lisinopril 10 mg tablet 10 mg PO DAILY RF: 0 Humira 40 mg/0.8 mL syringe kit 40 mg SUBCUT .Q 7 DAYS RF: 0 acetaminophen [Tylenol] 325 mg tablet 325 mg PO QID PRNRF: 0 baclofen 10 mg tablet 10 mg PO TID RF: 0 ibuprofen 200 mg tablet 200 mg PO Q6H PRNRF: 0 zinc 50 mg tablet 50 mg PO DAILY RF: 0 cholecalciferol (vitamin D3) 50 mcg (2,000 unit) capsule 50 mcg PO DAILY RF: 0 ascorbic acid (vitamin C) 500 mg capsule PO RF: 0 dexamethasone 6 mg tablet 6 mg PO DAILY Qty: 5 RF: 0 Zofran 4 mg tablet 4 mg PO Q6H PRN (Reason: nausea and vomiting) Qty: 10 RF: 0 dicyclomine 20 mg tablet 20 mg PO TID PRN (Reason: abdominal pain) Qty: 20 RF: 0 Discharge Orders: Discharge ED (Routine); Ordered 10/07/21 Ordered By: Micah Eng Referrals: Quyen Branham [Primary Care Provider] - Discharge Diet: Usual diet Discharge Activity: Increase activity as tolerated Patient Instructions: Noncardiac Chest Pain (ED), Opioid Safety Activity Restrictions/Additional Instructions: Home and rest. Activity as tolerated. Use ice or heat to the chest wall for comfort. Drink plenty of water with medication. Follow-up with primary care for further instruction. Return to the ER for new concerns. Coding Level of Care Code ED Speech Language Pathologist Travel for Jessica Fwd Exam Detailed
--- NOTE | 2021-10-07 00:53 | ECG_ITS ---
[facility] Test Date: 2021-10-07 Pat Name: Ivy Duque Department: Room: Gender: Female [employer]: : 1990 Requested By: Micah Soni Order Number: [id number] Lorena MD: Danna Kemp M.D. Measurements Intervals [place] Rate: 88 P: 24 ND: 142 QRS: 54 QRSD: 83 T: 49 QT: 350 QTc: 425 Interpretive Statements SINUS RHYTHM Compared to ECG 06/27/2021 00:59:05 No significant changes Electronically Signed On 10-07-2021 14:14:51 CONSTRUCTION FLAGGER by Danna Kemp M.D. [email or web address]
--- NOTE | 2021-10-07 01:01 | XRR_ITS ---
PROCEDURE INFORMATION: Exam: XR Chest Exam date and time: 10/07/2021 1:01 AM Age: 31 years old Clinical indication: Chest pressure; Patient HX: Near syncope with chest pain. TECHNIQUE: Imaging protocol: XR of the chest. Views: 1 view. COMPARISON: CR (CHEST, ) 08/21/2021 5:13 AM FINDINGS: Lungs: Unremarkable. No consolidation. Pleural spaces: Unremarkable. No pleural effusion. No pneumothorax. Heart/Mediastinum: Unremarkable. No cardiomegaly. Bones/joints: Unremarkable. XR/XR chest 1V portable [id number] IMPRESSION: No acute findings.
[2021-10-07 01:19] VITALS: RESP 16
[2021-10-07 01:19] LABS: Basophils % 0.3 %; Eosinophils # 0.3 10^3/uL (0.0-0.8); Eosinophils % 1.8 %; Hematocrit 46.4 % (37.0-47.0); Hemoglobin 15.2 g/dL (11.5-15.3); Lymphocytes # 4.8 10^3/uL (0.8-4.8); Lymphocytes % 30.1 %; Mean Corpuscular HGB Conc 32.8 g/dL (30.0-36.0); Mean Corpuscular Hemoglobin 30.6 pg (28.0-34.0); Mean Corpuscular Volume 93.5 fl (81-99); Mean Platelet Volume 10.7 fL (7.4-10.4); Monocytes % 6.1 %; Neutrophils # 9.74 10^3/uL (1.8-7.7); Neutrophils % 61.4 %; Nucleated Red Blood Cells % 0 %; Platelet Count 205 10^3/cmm (130-400); Red Blood Count 4.96 10^6/uL (4.1-5.3); Red Cell Distribution Width 13.4 % (12.1-15.1); White Blood Count 15.9 10^3/uL (4.0-10.0)
[2021-10-07] MEDS: fentaNYL 50 mcg/mL INJ 2mL IVP (01:19)
[2021-10-07] MEDS: sodium chloride 0.9% 500 ML 999 ML IV (01:19)
[2021-10-07] MEDS: ondansetron 4 MG Tablet PO (01:19)
[2021-10-07 01:39] LABS: Troponin T (5th) Once 8 ng/L (0-10)
[2021-10-07 01:42] LABS: Alanine Aminotransferase 20 U/L (0-33); Albumin Level 3.7 g/dL (3.5-5.2); Alkaline Phosphatase 76 IU/L (35-105); Anion Gap 16.8 (5-19); Aspartate Amino Transferase 14 U/L (0-32); Blood Urea Nitrogen 12 mg/dL (6-20); Calcium 8.7 mg/dL (8.5-10.5); Carbon Dioxide 19 mmol/L (22-29); Chloride 104 mmol/L (98-107); Globulin 3.2 g/dL (1.3-4.6); Glomerular Filtration Rate 142.1 mL/min (90-130); Glucose 118 mg/dL (65-115); Osmolality Calculated 283 mOsm/kg (285-295); Potassium 3.8 mmol/L (3.5-5.1); Sodium 136 mmol/L (136-145); Total Bilirubin 0.4 mg/dL (0.15-1.2); Total Protein 6.9 g/dL (6.6-8.7)
[2021-10-07] MEDS: HYDROcodone-acetaminophen 7.5-325 mg Tablet 1 TAB PO (02:06)
== END 2021-10-07 02:14 | disposition home or self-care (01) ==
PROVIDERS: Emergency Provider Nurse Practitioner Family; PCP Registered Nurse
DX: R07.89 Other chest pain (principal); F17.210 Nicotine dependence, cigarettes, uncomplicated
CPT/HCPCS: 71045; 80053; 84484; 85025; 93005; 96374; 99283; J3010; J7040; Q0162

== ENCOUNTER 2021-10-19 23:34 | Emergency (ER) | payer MEDICAID, SELFPAY ==
[2021-10-19 23:43] VITALS: BP 128/109; PULSE 96; RESP 20; TEMP 36.8; O2SAT 95; BMI 46.7
--- NOTE | 2021-10-19 23:43 | XRR_ITS ---
PROCEDURE INFORMATION: Exam: XR Chest Exam date and time: 10/19/2021 11:43 PM Age: 31 years old Clinical indication: Cough and shortness of breath; Patient HX: Cough with SOB. Positve at home covid test. ; Additional info: Covid symptoms, cough TECHNIQUE: Imaging protocol: XR of the chest. Views: 1 view. COMPARISON: CR (CHEST, ) 10/07/2021 1:04 AM FINDINGS: Lungs: Bilateral hilar to lower lobe atelectasis versus infiltrate. Pleural spaces: Unremarkable. No pleural effusion. No pneumothorax. Heart/Mediastinum: Unremarkable. No cardiomegaly. Bones/joints: Unremarkable. XR/XR chest 1V portable [id number] IMPRESSION: Bilateral hilar to lower lobe atelectasis versus infiltrate.
--- NOTE | 2021-10-19 23:44 | W.ED.URI ---
HPI - URI/Sore Throat General: Chief Complaint: COVID symptoms Stated Complaint: Covid symptoms Time Seen by Provider: 10/19/21 23:38 History of Present Illness: Patient is a 31-year-old female comes to the ED with Covid symptoms. Symptoms started yesterday. Patient says she had a cough that is dry, body aches, headache, fever, chills, nasal congestion drainage, nausea, vomiting and diarrhea. Patient is only had one episode of emesis today. She said her diarrhea started today and she has had multiple episodes of diarrhea. Patient took 1000 mg of Tylenol at 1030 today. She took an at-home Covid test yesterday and it was positive. Associated symptoms: Reports chills, diarrhea, fever(s), headache(s), nasal congestion, nausea and vomiting; Deny abdominal pain or chest pain Review of Systems Const: Reports: fever(s), chills and body aches Eyes: Denies: change in vision or eye discomfort ENMT: Reports: nasal discharge and nasal congestion; Denies: throat pain or odynophagia Card: Denies: chest pain, palpitations, edema, swelling of feet/ankles, dyspnea on exertion or orthopnea Resp: Reports: non-productive cough; Denies: dyspnea or productive cough GI: Reports: nausea, vomiting and diarrhea; Denies: abdominal pain, constipation or hematochezia : Denies: flank pain, dysuria or hematuria Musc: Denies: neck pain, back pain or extremity swelling Skin/Breast: Denies: rash or new lesions Neuro: Reports: headache(s) PFS ED PFSH: Medical History No pertinent past medical history Family History Mother Colon cancer Diabetes Hyperlipidemia Hypertension Stroke Heart disease Father Diabetes Hypertension Thyroid disease Denies family history of Clotting disorder Chronic kidney disease (CKD) Bleeding disorder Social History Smoking and tobacco status: current every day smoker cigarettes Quit status (tobacco): considering quitting Smoking risk assessment/counseling performed?: Yes Alcohol intake: never Caregiver/support person: Yes Lives independently: Yes History of recent travel: No Female Reproductive History: Date of last menstrual period: 02/12/21 Physical Exam Const: COMMON NORMALS: no acute distress, patient oriented x3 and alert GENERAL APPEARANCE: cooperative and comfortable NUTRITIONAL APPEARANCE: obese HENMT: COMMON NORMALS: normocephalic HEAD & SCALP: normocephalic MOUTH: Normal oral and palatal mucosa present THROAT: posterior oropharynx normal and uvula midline Neck/C-Spine: COMMON NORMALS: supple GENERAL: Yes normal visual inspection Resp: COMMON NORMALS: normal respiratory effort, No retractions, No use of accessory muscles and clear to auscultation bilaterally AUSCULTATION: clear to auscultation bilaterally Cardio: COMMON NORMALS: regular rate, regular rhythm, S1 normal heart sound present, S2 normal heart sound present, No gallops present (Cardio), No clicks present (Cardio), No murmurs present (Cardio) and Peripheral pulses 2+ throughout RATE: regular rate RHYTHM: regular rhythm HEART SOUNDS: S1 normal heart sound present and S2 normal heart sound present PERIPHERAL PULSES: Peripheral pulses 2+ throughout GI: COMMON NORMALS: Normal to inspection, nondistended, normoactive bowel sounds present, Soft to palpation, non-tender and no masses PALPATION: Yes Soft to palpation : COMMON NORMALS: Yes no CVA tenderness BLADDER/KIDNEY EXAM: Yes no CVA tenderness Back/Pelvis: COMMON NORMALS: no CVA tenderness Extremity: COMMON NORMALS: normal to inspection Neuro: COMMON NORMALS: patient oriented x3 and moves all extremities SENSORIUM/ORIENTATION: Yes alert Skin: GENERAL SKIN EXAM: dry skin Course Vital Signs: Vital signs: Vital Signs Temperature 98.3 F 10/19/21 23:43 Pulse Rate 96 10/19/21 23:43 Respiratory Rate 20 H 10/19/21 23:43 Blood Pressure 128/109 10/19/21 23:43 Pulse Oximetry 96 10/19/21 23:52 MDM - URI/Sore Throat Medical Decision Making Patient is a 31-year-old female who comes to the ED with Covid symptoms. Symptoms started yesterday. Here in the ED she is afebrile and her respiratory vitals are stable. O2 saturation was 96% on room air. Exam is benign. Patient is obese but appears in no acute distress or pain. Chest x-ray shows bilateral hilar to lower lobe atelectasis versus infiltrate. Influenza was negative and Covid [facility] test is pending. Patient appears stable for discharge home and was diagnosed with a acute viral syndrome. She was told the Covid test is pending and she can contact the [facility] to get the results in the next 24 to 48 hours. She was discharged home with prescription for Zofran, Tessalon Perles, azithromycin and prednisone. She was told to follow-up with her PCP in 3 to 5 days for reevaluation. She was also sent home with an incentive spirometer and encouraged to use that multiple times every 2-3 hours to help expand her lungs and breathing return to ED precautions given. Patient understood and agreed with plan. Lab Data I reviewed the patient's lab results. Radiology Impressions Chest X-Ray 10/19/21 23:43 IMPRESSION: Bilateral hilar to lower lobe atelectasis versus infiltrate. Laboratory Results Influenza Type A Ag Negative (Negative) 10/19/21 23:55 Influenza Type B Ag Negative (Negative) 10/19/21 23:55 Discharge Plan Discharge Patient Disposition: Home Clinical Impression: Acute viral syndrome, COVID-19 virus RNA test result unknown Condition: Stable Prescriptions: New azithromycin 250 mg tablet See Rx Instructions .ROUTE .COMPLEX Qty: 6 0RF Rx Instructions: take 500 mg today (day 1), then 250 mg for 4 days (days 2-5) Tessalon Perles 100 mg capsule 100 mg PO TID PRN (Reason: cough) Qty: 20 0RF Zofran 4 mg tablet 4 mg PO Q8H PRN (Reason: nausea and vomiting) Qty: 15 0RF prednisone 20 mg tablet 20 mg PO BID 5 Days Qty: 10 0RF No Action lisinopril 10 mg tablet 10 mg PO DAILY 0RF Humira 40 mg/0.8 mL syringe kit 40 mg SUBCUT .Q 7 DAYS 0RF acetaminophen [Tylenol] 325 mg tablet 325 mg PO QID PRN0RF baclofen 10 mg tablet 10 mg PO TID 0RF ibuprofen 200 mg tablet 200 mg PO Q6H PRN0RF zinc 50 mg tablet 50 mg PO DAILY 0RF cholecalciferol (vitamin D3) 50 mcg (2,000 unit) capsule 50 mcg PO DAILY 0RF ascorbic acid (vitamin C) 500 mg capsule PO 0RF dexamethasone 6 mg tablet 6 mg PO DAILY Qty: 5 0RF Zofran 4 mg tablet 4 mg PO Q6H PRN (Reason: nausea and vomiting) Qty: 10 0RF dicyclomine 20 mg tablet 20 mg PO TID PRN (Reason: abdominal pain) Qty: 20 0RF hydrocodone-acetaminophen 5-325 mg tablet 1 tab PO Q8H PRN (Reason: pain (scale score 7-10)) Qty: 7 0RF Discharge Orders: Discharge ED (Routine); Ordered 10/20/21 Ordered By: Ben Saravia Referrals: Quyen Branham [Primary Care Provider] - Discharge Diet: Regular Discharge Activity: Increase activity as tolerated Activity Restrictions/Additional Instructions: Follow-up with medical provider as directed in 3 to 5 days for reevaluation. Take medications as prescribed. Make sure to use the incentive spirometer at least 5-10 times every 2-3 hours to help expand lungs and breathing. Return to the ER or your medical provider if condition worsens. Please read and understand discharge instructions. Thank you for choosing [facility] for your healthcare needs today. Please realize this is an emergency room and that we are providing you with a medical screening exam and this may not be complete and all inclusive of all the testing and or work up that you may need to determine your ailment or severity of your illness. It is very important that you follow up as instructed or that you return to the Emergency Department should you have concerns or if your condition changes or worsens in any way. Stand Alone Forms: Work/School Release Coding Level of Care Code ED Director Executive Communications for Jessica Fwyuliana Exam Comprehensive
[2021-10-19 23:52] VITALS: O2SAT 96
[2021-10-19] MEDS: ondansetron 2 mg/ML SDV 2 mL 4 MG IM (23:54)
[2021-10-20 00:31] LABS: Influenza A by IFA Negative (Negative); Influenza B by IFA Negative (Negative)
[2021-10-21 17:07] LABS: Quest SARS-CoV-2 RNA DETECTED (NOT DETECTED)
--- NOTE | 2021-10-21 18:11 | PC.NURSE ---
Notified of positive COVID test. Copy of result at the vest front presser
== END 2021-10-20 00:40 | disposition home or self-care (01) ==
PROVIDERS: Emergency Provider Physician Assistant; PCP Registered Nurse
DX: U07.1 COVID-19 (principal); F17.210 Nicotine dependence, cigarettes, uncomplicated
CPT/HCPCS: 71045; 87635; 87804; 96372; 99283; J2405

== ENCOUNTER 2021-12-26 10:30 | Emergency (ER) | payer MEDICAID, SELFPAY ==
[2021-12-26 11:04] VITALS: BP 157/95; PULSE 83; RESP 22; TEMP 36.8; O2SAT 97; BMI 51.6
--- NOTE | 2021-12-26 11:08 | W.ED.EXTPRO ---
HPI - Extremity Problem General: Chief complaint: Extremity Problem,Nontraumatic Stated complaint: right leg injury Time Seen by Provider: 12/26/21 10:32 Source: patient Mode of arrival: ambulatory Limitations: no limitations History of Present Illness: Patient is a 31-year-old female presents to ED today with a complaint of pain to her posterior right knee. Patient states she started noticing discomfort this morning when she awoke. No known injury or trauma. She feels like the area is warm to the touch and swollen. She states she is concerned as several members of her family were diagnosed with DVTs in their 40s. MD Complaint: joint swelling and joint pain Onset (ago): hour(s) Pain Consistency: constant Location: right and lower extremity Quality: burning Radiation: none Relieving factors: immobilization and other (compression) Exacerbating factors: range of motion, weight bearing, walking and palpation Associated symptoms: Reports no associated symptoms; Deny chest pain, fever(s) or rash Review of Systems Const: Denies: fever(s), chills, body aches, fatigue or malaise Card: Denies: chest pain Resp: Denies: dyspnea Musc: Reports: joint pain (R knee) and joint swelling; Denies: neck pain, back pain, extremity pain, extremity swelling, joint redness or joint warmth Skin/Breast: Denies: rash Neuro: Denies: headache(s), numbness in extremities, weakness in extremities or sensory changes PFS ED PFSH: Medical History No pertinent past medical history Family History Mother Colon cancer Diabetes Hyperlipidemia Hypertension Stroke Heart disease Father Diabetes Hypertension Thyroid disease Denies family history of Clotting disorder Chronic kidney disease (CKD) Bleeding disorder Social History Smoking and tobacco status: current every day smoker cigarettes Quit status (tobacco): considering quitting Smoking risk assessment/counseling performed?: Yes Alcohol intake: never Caregiver/support person: Yes Lives independently: Yes History of recent travel: No Female Reproductive History: Date of last menstrual period: 02/12/21 Physical Exam Const: COMMON NORMALS: no acute distress, no limitations and alert GENERAL APPEARANCE: cooperative NUTRITIONAL APPEARANCE: obese morbidly obese Resp: COMMON NORMALS: normal respiratory effort Cardio: COMMON NORMALS: regular rate and regular rhythm RATE: regular rate RHYTHM: regular rhythm Extremity: COMMON NORMALS: full ROM, capillary refill normal, no clubbing, cyanosis or edema, no calf tenderness and no pedal edema GENERAL: Yes normal exam except as noted RIGHT LOWER EXTREMITY: Yes knee joint (TTP posteriomedial knee; no obvious swelling-limited due to body habitus) Right knee: Yes inspection (no redness/warmth/streaking appreciated), Yes ROM (normal) and Yes neurovascular exam (normal) Neuro: COMMON NORMALS: moves all extremities, no focal motor deficits and no sensory deficits noted SENSORIUM/ORIENTATION: Yes alert Skin: COMMON NORMALS: no rashes or lesions noted GENERAL SKIN EXAM: no rashes or lesions noted TRAUMA: no lacerations or abrasions Course Vital Signs: Vital signs: Vital Signs Temperature 98.2 F 12/26/21 11:04 Pulse Rate 83 12/26/21 11:04 Respiratory Rate 22 H 12/26/21 11:04 Blood Pressure 157/95 12/26/21 11:04 Pulse Oximetry 97 12/26/21 11:04 MDM - Extremity (Nontraumatic) Medical Decision Making US of her R LE shows no DVT/no Garza's Cyst. Extremity is NV intact. No known injury/trauma. I don't see any indication for labs, XR, advanced imaging at this time. Recommend conservative therapies at home and follow up with PCP in 1-2 weeks for continued discomfort. Return to ED precautions given. Discharge Plan Discharge Patient Disposition: Home Clinical Impression: Posterior right knee pain Condition: Stable Prescriptions: No Action lisinopril 10 mg tablet 10 mg PO DAILY 0RF Humira 40 mg/0.8 mL syringe kit 40 mg SUBCUT .Q 7 DAYS 0RF acetaminophen [Tylenol] 325 mg tablet 325 mg PO QID PRN0RF baclofen 10 mg tablet 10 mg PO TID 0RF ibuprofen 200 mg tablet 200 mg PO Q6H PRN0RF zinc 50 mg tablet 50 mg PO DAILY 0RF cholecalciferol (vitamin D3) 50 mcg (2,000 unit) capsule 50 mcg PO DAILY 0RF ascorbic acid (vitamin C) 500 mg capsule PO 0RF dexamethasone 6 mg tablet 6 mg PO DAILY Qty: 5 0RF Zofran 4 mg tablet 4 mg PO Q6H PRN (Reason: nausea and vomiting) Qty: 10 0RF dicyclomine 20 mg tablet 20 mg PO TID PRN (Reason: abdominal pain) Qty: 20 0RF hydrocodone-acetaminophen 5-325 mg tablet 1 tab PO Q8H PRN (Reason: pain (scale score 7-10)) Qty: 7 0RF azithromycin 250 mg tablet See Rx Instructions .ROUTE .COMPLEX Qty: 6 0RF Rx Instructions: take 500 mg today (day 1), then 250 mg for 4 days (days 2-5) Tessalon Perles 100 mg capsule 100 mg PO TID PRN (Reason: cough) Qty: 20 0RF Zofran 4 mg tablet 4 mg PO Q8H PRN (Reason: nausea and vomiting) Qty: 15 0RF Discharge Orders: Discharge ED (Routine); Ordered 12/26/21 Ordered By: Karen Mitchell Referrals: Quyen Branham [Primary Care Provider] - Coding Level of Care Code ED Operations And Maintenance Specialist for Jessica Cassidy
--- NOTE | 2021-12-26 11:15 | USCV_ITS ---
Ivy Duque Age: 31 Gender: F : 1990 Exam Date: 12/26/2021 11:29 Ordering Phys: Karen Mitchell Technologist: LANI Exam Location: [facility] – [place]_ Indication: RLE PAIN AND SWELLING HISTORY: Lower extremity pain. Lower extremity swelling. PROCEDURES: Venous duplex imaging was performed in only the right lower extremity. The following venous structures were evaluated: common femoral vein, profunda vein, proximal portion of the greater saphenous vein, superficial femoral vein, and the popliteal vein. In addition, the posterior tibial and peroneal trunk were evaluated. Serial compression, augmentation maneuvers, and spectral Doppler flow evaluation were performed. FINDINGS: Examination was technically limited due to body habitus. Normal 2-D Doppler and augmentation and compressibility throughout the lower extremity venous structures. Additional imaging through the proximal calf veins also reveals no thrombus. Limited evaluation of the greater saphenous vein is patent with no thrombus. CONCLUSIONS No DVT right lower extremity. Dr. Tamar Warner DO (Electronically Signed) Final Date: 26 December 2021 14:48 Amended: 28 December 2021 08:29 C
== END 2021-12-26 12:08 | disposition home or self-care (01) ==
PROVIDERS: Emergency Provider Physician Assistant; PCP Registered Nurse
DX: M25.561 Pain in right knee (principal); M79.89 Other specified soft tissue disorders; F17.210 Nicotine dependence, cigarettes, uncomplicated
CPT/HCPCS: 93971; 99281

== ENCOUNTER 2021-12-26 23:19 | Emergency (ER) | payer MEDICAID, SELFPAY ==
[2021-12-26 23:29] VITALS: BP 183/81; PULSE 85; RESP 18; TEMP 36.6; O2SAT 99; BMI 51.3
--- NOTE | 2021-12-26 23:35 | ED_ITS ---
Documented by User: ANDRADE Torres 12/30/21 06:58 HPI - Extremity Problem General: Chief complaint: Extremity Injury, Upper Stated complaint: Fall/LT shoulder pain Time Seen by Provider: 12/26/21 23:29 History of Present Illness: Patient states she was stepped on bathtub night and slipped because she is favoring her right knee and she landed on the anterior aspect of her left shoulder. She complains about pain to the anterior left shoulder presently. [place] any other injuries. Associated symptoms: Deny chest pain, fever(s) or rash Review of Systems Const: Denies: fever(s), chills or body aches Eyes: Denies: eye discomfort ENMT: Denies: throat pain Card: Denies: chest pain Resp: Denies: dyspnea GI: Denies: abdominal pain, nausea or vomiting Musc: Reports: extremity pain and joint pain (Left shoulder from a fall this evening.) Skin/Breast: Denies: rash Neuro: Denies: headache(s) Psych: Denies: depression or suicidal ideation PFSH ED PFSH: Medical History No pertinent past medical history Family History Mother Colon cancer Diabetes Hyperlipidemia Hypertension Stroke Heart disease Father Diabetes Hypertension Thyroid disease Denies family history of Clotting disorder Chronic kidney disease (CKD) Bleeding disorder Social History Smoking and tobacco status: current every day smoker cigarettes Quit status (tobacco): considering quitting Smoking risk assessment/counseling performed?: Yes Alcohol intake: never Caregiver/support person: Yes Lives independently: Yes History of recent travel: No Female Reproductive History: Date of last menstrual period: 02/12/21 Physical Exam Const: COMMON NORMALS: no acute distress, patient oriented x3 and alert HENMT: COMMON NORMALS: normocephalic and external ears normal HEAD & SCALP: normocephalic EXTERNAL EAR: Yes external ears normal Eye: COMMON NORMALS: EOMs intact bilaterally Neck/C-Spine: COMMON NORMALS: no JVD Resp: COMMON NORMALS: normal respiratory effort and No use of accessory muscles Cardio: COMMON NORMALS: no JVD GI: INSPECTION: Yes normal to inspection Extremity: COMMON NORMALS: normal to inspection and full ROM NARRATIVE EXTREMITY EXAM: Tenderness to left clavicle distal aspect. No marked swelling. Tenderness to anterior shoulder head area. Patient is able to move the arm yet with pain to that area. I was able to move the arm out horizontally and flex the elbow and patient was able to move the elbow across from plane the body. But while ago the arm she did drop and that did cause pain. She not able extend the arm up above the shoulder due to discomfort. When she was able to relax it but it did cause pain. Neurovascular intact distally. Neuro: COMMON NORMALS: patient oriented x3 SENSORIUM/ORIENTATION: Yes alert Psych: COMMON NORMALS: mental status grossly normal Skin: COMMON NORMALS: no rashes or lesions noted GENERAL SKIN EXAM: no rashes or lesions noted Course Vital Signs: Vital signs: Vital Signs Temperature 97.8 F 12/26/21 23:29 Pulse Rate 90 12/27/21 00:40 Respiratory Rate 20 H 12/27/21 02:01 Blood Pressure 154/94 12/27/21 02:01 Pulse Oximetry 95 12/27/21 02:01 MDM - Extremity (Nontraumatic) Medical Decision Making Patient presents from left shoulder pain where she fell on her left shoulder. Radiology questionable whether subluxation of the shoulder is present. There is no dislocation as per radiologist. Discussed case with Dr. Montana. Will refer patient to orthopedics for follow-up care patient is placed in sling gave pain medication. Lab Data Radiology Impressions Clavicle X-Ray 12/26/21 23:38 IMPRESSION: No acute left clavicle fracture. Shoulder X-Ray 12/27/21 01:00 IMPRESSION: Unremarkable appearance of the shoulder joint on the axillary view. However, earlier images demonstrate findings suggestive for concerning for subluxation/ligament laxity. However, there is no dislocation. Discharge Plan Discharge Patient Disposition: Home Clinical Impression: Anterior subluxation of shoulder Condition: Stable Prescriptions: New hydrocodone-acetaminophen 5-325 mg tablet 1 tab PO TID PRN (Reason: pain) Qty: 14 0RF No Action lisinopril 10 mg tablet 10 mg PO DAILY 0RF Humira 40 mg/0.8 mL syringe kit 40 mg SUBCUT .Q 7 DAYS 0RF acetaminophen [Tylenol] 325 mg tablet 325 mg PO QID PRN0RF baclofen 10 mg tablet 10 mg PO TID 0RF ibuprofen 200 mg tablet 200 mg PO Q6H PRN0RF zinc 50 mg tablet 50 mg PO DAILY 0RF cholecalciferol (vitamin D3) 50 mcg (2,000 unit) capsule 50 mcg PO DAILY 0RF ascorbic acid (vitamin C) 500 mg capsule PO 0RF celecoxib [Celebrex] 200 mg capsule 200 mg PO DAILY Qty: 30 0RF dexamethasone 6 mg tablet 6 mg PO DAILY Qty: 5 0RF Zofran 4 mg tablet 4 mg PO Q6H PRN (Reason: nausea and vomiting) Qty: 10 0RF dicyclomine 20 mg tablet 20 mg PO TID PRN (Reason: abdominal pain) Qty: 20 0RF hydrocodone-acetaminophen 5-325 mg tablet 1 tab PO Q8H PRN (Reason: pain (scale score 7-10)) Qty: 7 0RF azithromycin 250 mg tablet See Rx Instructions .ROUTE .COMPLEX Qty: 6 0RF Rx Instructions: take 500 mg today (day 1), then 250 mg for 4 days (days 2-5) Tessalon Perles 100 mg capsule 100 mg PO TID PRN (Reason: cough) Qty: 20 0RF Zofran 4 mg tablet 4 mg PO Q8H PRN (Reason: nausea and vomiting) Qty: 15 0RF Discharge Orders: Discharge ED (Routine); Ordered 12/27/21 Ordered By: Abner Zuleta Referrals: Quyen rBanham [Primary Care Provider] - Discharge Diet: Usual diet Discharge Activity: Limit activity as instructed Patient Instructions: Rotator Cuff Injury (ED), Shoulder Sprain (ED) Activity Restrictions/Additional Instructions: Follow-up with medical provider as directed. Take medications as prescribed. Return to the ER or your medical provider if condition worsens. Please read and understand discharge instructions. If any questions ask please. The hospital will contact you with appointment for orthopedic office follow-up. Wear sling until seen by orthopedic doctor. Can apply ice to area to help with discomfort. Coding Level of Care Code ED Tube Blower for Jessica Fwd Exam Comprehensive Documented by User: Oscar Montana MD 12/31/21 11:56 HPI - Extremity Problem General: Chief complaint: Extremity Injury, Upper Stated complaint: Fall/LT shoulder pain Time Seen by Provider: 12/26/21 23:29 [facility] ED PFSH: Medical History No pertinent past medical history Family History Mother Colon cancer Diabetes Hyperlipidemia Hypertension Stroke Heart disease Father Diabetes Hypertension Thyroid disease Denies family history of Clotting disorder Chronic kidney disease (CKD) Bleeding disorder Social History Smoking and tobacco status: current every day smoker cigarettes Quit status (tobacco): considering quitting Smoking risk assessment/counseling performed?: Yes Alcohol intake: never Caregiver/support person: Yes Lives independently: Yes History of recent travel: No Course Vital Signs: Vital signs: Vital Signs Temperature 97.8 F 12/26/21 23:29 Pulse Rate 90 12/27/21 00:40 Respiratory Rate 20 H 12/27/21 02:01 Blood Pressure 154/94 12/27/21 02:01 Pulse Oximetry 95 12/27/21 02:01 MDM - Extremity (Nontraumatic) Medical Decision Making Patient presents from left shoulder pain where she fell on her left shoulder. Radiology questionable whether subluxation of the shoulder is present. There is no dislocation as per radiologist. Discussed case with Dr. Montana. Will refer patient to orthopedics for follow-up care patient is placed in sling gave pain medication. I discussed this case with Abner Zuleta NP. [facility] reported intact. X-rays reviewed. Oscar Montana MD Emergency Medicine Lab Data Radiology Impressions Clavicle X-Ray 12/26/21 23:38 IMPRESSION: No acute left clavicle fracture. Shoulder X-Ray 12/27/21 01:00 IMPRESSION: Unremarkable appearance of the shoulder joint on the axillary view. However, earlier images demonstrate findings suggestive for concerning for subluxation/ligament laxity. However, there is no dislocation. Discharge Plan Discharge Patient Disposition: Home Clinical Impression: Anterior subluxation of shoulder Condition: Stable Prescriptions: New hydrocodone-acetaminophen 5-325 mg tablet 1 tab PO TID PRN (Reason: pain) Qty: 14 0RF No Action lisinopril 10 mg tablet 10 mg PO DAILY 0RF Humira 40 mg/0.8 mL syringe kit 40 mg SUBCUT .Q 7 DAYS 0RF acetaminophen [Tylenol] 325 mg tablet 325 mg PO QID PRN0RF baclofen 10 mg tablet 10 mg PO TID 0RF ibuprofen 200 mg tablet 200 mg PO Q6H PRN0RF zinc 50 mg tablet 50 mg PO DAILY 0RF cholecalciferol (vitamin D3) 50 mcg (2,000 unit) capsule 50 mcg PO DAILY 0RF ascorbic acid (vitamin C) 500 mg capsule PO 0RF celecoxib [Celebrex] 200 mg capsule 200 mg PO DAILY Qty: 30 0RF dexamethasone 6 mg tablet 6 mg PO DAILY Qty: 5 0RF Zofran 4 mg tablet 4 mg PO Q6H PRN (Reason: nausea and vomiting) Qty: 10 0RF dicyclomine 20 mg tablet 20 mg PO TID PRN (Reason: abdominal pain) Qty: 20 0RF hydrocodone-acetaminophen 5-325 mg tablet 1 tab PO Q8H PRN (Reason: pain (scale score 7-10)) Qty: 7 0RF azithromycin 250 mg tablet See Rx Instructions .ROUTE .COMPLEX Qty: 6 0RF Rx Instructions: take 500 mg today (day 1), then 250 mg for 4 days (days 2-5) Tessalon Perles 100 mg capsule 100 mg PO TID PRN (Reason: cough) Qty: 20 0RF Zofran 4 mg tablet 4 mg PO Q8H PRN (Reason: nausea and vomiting) Qty: 15 0RF Discharge Orders: Discharge ED (Routine); Ordered 12/27/21 Ordered By: Abner Zuleta Referrals: Quyen Branham [Primary Care Provider] - Discharge Diet: Usual diet Discharge Activity: Limit activity as instructed Patient Instructions: Rotator Cuff Injury (ED), Shoulder Sprain (ED) Activity Restrictions/Additional Instructions: Follow-up with medical provider as directed. Take medications as prescribed. Return to the ER or your medical provider if condition worsens. Please read and understand discharge instructions. If any questions ask please. The hospital will contact you with appointment for orthopedic office follow-up. Wear sling until seen by orthopedic doctor. Can apply ice to area to help with discomfort. Coding Level of Care Code ED Tube Blower for Chg Fwd Exam Comprehensive
--- NOTE | 2021-12-26 23:38 | XRR_ITS ---
PROCEDURE INFORMATION: Exam: XR Left Shoulder Exam date and time: 12/26/2021 11:46 PM Age: 31 years old Clinical indication: Injury or trauma; Fall; Blunt trauma (contusions or hematomas); Patient HX: Patient slipped getting out of bathtub and fell onto left shoulder. C/O pain with reduced rom. TECHNIQUE: Imaging protocol: XR Left shoulder. Views: 2 or more views. COMPARISON: CR XR chest 1V portable [id number] 10/19/2021 11:48 PM FINDINGS: Bones/joints: Slight anterior inferior positioning of the left humeral head relative to the glenoid on the frontal views. Findings may be seen with subluxation. Soft tissues: Axillary view may be helpful for confirmation. XR/XR shoulder LT min 2V* [id number] IMPRESSION: Slight anterior inferior positioning of the left humeral head relative to the glenoid on the frontal views. Findings may be seen with subluxation. Axillary view may be helpful for confirmation.
--- NOTE | 2021-12-26 23:38 | XRR_ITS ---
PROCEDURE INFORMATION: Exam: XR Left Clavicle, Complete Exam date and time: 12/26/2021 11:46 PM Age: 31 years old Clinical indication: Injury or trauma; Fall; Blunt trauma (contusions or hematomas); Patient HX: Patient slipped getting out of bathtub and fell onto left shoulder. C/O pain with reduced rom. TECHNIQUE: Imaging protocol: XR Left clavicle complete. Views: Any number of views. COMPARISON: CR XR chest 1V portable [id number] 10/19/2021 11:48 PM FINDINGS: Bones/joints: No acute fracture of the left clavicle. Soft tissues: Normal. XR/[place] [id number] IMPRESSION: No acute left clavicle fracture.
[2021-12-26] MEDS: CELEcoxib 200 mg Capsule 400 MG PO (23:56)
[2021-12-26] MEDS: acetaminophen 500 mg Tablet 1000 MG PO (23:56)
[2021-12-27] VITALS: BP 187/102; PULSE 83; RESP 18; O2SAT 95
[2021-12-27] MEDS: lisinopril 10 mg Tablet PO (00:06)
--- NOTE | 2021-12-27 00:09 | PC.NURSE ---
BP Pt bp 187/103, reports that she usually takes Lisinopril 10mg daily but has not in several days. Spoke with Abner Ross and he placed an order for her Lisinopril 10mg PO. Given to pt at this time.
[2021-12-27 00:40] VITALS: BP 154/94; PULSE 90; RESP 20; O2SAT 95
[2021-12-27] MEDS: HYDROcodone-acetaminophen 7.5-325 mg Tablet 1 TAB PO (00:54)
--- NOTE | 2021-12-27 01:00 | XRR_ITS ---
PROCEDURE INFORMATION: Exam: XR Left Shoulder Exam date and time: 12/27/2021 1:12 AM Age: 31 years old Clinical indication: Injury or trauma; Fall; Blunt trauma (contusions or hematomas); Patient HX: Patient tripped getting out of bathtub and fell onto left shoulder. C/O pain with reduced rom. Axillary view per rad suggestion. TECHNIQUE: Imaging protocol: XR Left shoulder. Views: 1 view. COMPARISON: CR (CHEST, ) 12/26/2021 11:46 PM FINDINGS: Bones/joints: Unremarkable appearance of the shoulder joint on the axillary view. However, earlier images demonstrate findings suggestive for concerning for subluxation/ligament laxity. However, there is no dislocation. Soft tissues: See Bones/joints finding. XR/XR shoulder LT 1V [id number] IMPRESSION: Unremarkable appearance of the shoulder joint on the axillary view. However, earlier images demonstrate findings suggestive for concerning for subluxation/ligament laxity. However, there is no dislocation.
[2021-12-27 02:01] VITALS: BP 154/94; RESP 20; O2SAT 95
--- NOTE | 2021-12-27 06:20 | DCPLANNER ---
Addendum entered by Suma Ward 01/03/22 08:13: Patient had a follow up appointment scheduled for 12.29.[address] Lopez at ortho - patient did attend appointment. Original Note: supplier quality engineering manager had message to schedule a follow up appointment for patient with ortho. supplier quality engineering manager sent patients information to the front staff at ortho for review. Patients information will be printed and reviewed. Clinic will call patient with appointment information.
== END 2021-12-27 02:03 | disposition home or self-care (01) ==
PROVIDERS: Emergency Provider Nurse Practitioner Family; PCP Registered Nurse
DX: S43.012A Anterior subluxation of left humerus, initial encounter (principal); W01.0XXA Fall on same level from slipping, tripping and stumbling without subsequent striking against object, initial encounter; Y93.E1 Activity, personal bathing and showering; F17.210 Nicotine dependence, cigarettes, uncomplicated
CPT/HCPCS: 73000; 73020; 73030; 99283

== ENCOUNTER 2021-12-29 09:54 | Outpatient (CLI) | payer MEDICAID, SELFPAY ==
--- NOTE | 2021-12-29 10:05 | XR_ITS ---
WS: [id number] Left shoulder, 3 views, 12/29/2021 Clinical Data: pain Comparison: Left shoulder, 12/27/2021 and 12/26/2021. Findings: No fractures or dislocations are seen. The AC joint is normal. The adjacent left clavicle, left scapu la and ribs are normal. The soft tissues are unremarkable. XR/XR shoulder LT min 2V* [id number] Impression: Negative left shoulder.
== END 2021-12-29 09:55 | disposition home or self-care (01) ==
LOC: RAD 09:57
PROVIDERS: PCP Registered Nurse; Visit Provider Orthopaedic Surgery
DX: S43.012A Anterior subluxation of left humerus, initial encounter (principal); X58.XXXA Exposure to other specified factors, initial encounter
CPT/HCPCS: 73030; 99203; 99204

== ENCOUNTER 2022-01-06 00:13 | Emergency (ER) | payer MEDICAID, SELFPAY ==
[2022-01-06 00:38] VITALS: BP 137/85; PULSE 86; RESP 20; TEMP 36.7; O2SAT 96; BMI 51.7
[2022-01-06 00:46] VITALS: BP 126/96; PULSE 82; RESP 18; O2SAT 96
--- NOTE | 2022-01-06 00:53 | ED_ITS ---
HPI - Fever General: Chief Complaint: Abdominal Pain Stated Complaint: fever, V Time Seen by Provider: 01/06/22 00:34 History of Present Illness: States had flu exposure 2 weeks ago. States she developed worsening of her illness after he got home from work today. She said she is having some chills earlier in the day. Says vomited x1. After she got out of shower. Patient's fever was noted right after she took a shower said that she has had some upper epigastric tenderness after vomiting and hurts to her back. Patient denies any diarrhea. She has had some muscle pain. Patient's had gallbladder and appendix removed also had and tonsillectomy. Denies any chest pressure or shortness of breath. Patient is afebrile here. Associated symptoms: Reports chills and vomiting (X1); Deny abdominal pain, chest pain, headache(s) or nausea Review of Systems Const: Reports: fever(s) and chills; Denies: body aches Eyes: Denies: eye discomfort ENMT: Denies: throat pain Card: Denies: chest pain Resp: Denies: dyspnea GI: Reports: vomiting (X1); Denies: abdominal pain or nausea Musc: Reports: other (Mild muscle aches.) Skin/Breast: Denies: rash Neuro: Denies: headache(s) Psych: Denies: depression or suicidal ideation PFS ED PFSH: Medical History No pertinent past medical history Family History Mother Colon cancer Diabetes Hyperlipidemia Hypertension Stroke Heart disease Father Diabetes Hypertension Thyroid disease Denies family history of Clotting disorder Chronic kidney disease (CKD) Bleeding disorder Social History Smoking and tobacco status: current every day smoker cigarettes Quit status (tobacco): considering quitting Smoking risk assessment/counseling performed?: Yes Alcohol intake: never Caregiver/support person: Yes Lives independently: Yes History of recent travel: No Female Reproductive History: Date of last menstrual period: 02/12/21 Physical Exam Const: COMMON NORMALS: no acute distress, patient oriented x3 and alert HENMT: COMMON NORMALS: normocephalic and external ears normal HEAD & SCALP: normocephalic EXTERNAL EAR: Yes external ears normal Eye: COMMON NORMALS: EOMs intact bilaterally Neck/C-Spine: COMMON NORMALS: no JVD Resp: COMMON NORMALS: normal respiratory effort and No use of accessory muscles Cardio: COMMON NORMALS: no JVD GI: INSPECTION: Yes normal to inspection Extremity: COMMON NORMALS: normal to inspection and full ROM Neuro: COMMON NORMALS: patient oriented x3 SENSORIUM/ORIENTATION: Yes alert Psych: COMMON NORMALS: mental status grossly normal Skin: COMMON NORMALS: no rashes or lesions noted GENERAL SKIN EXAM: no rashes or lesions noted Course Vital Signs: Vital signs: Vital Signs Temperature 97.8 F 01/06/22 01:53 Pulse Rate 76 01/06/22 01:53 Respiratory Rate 22 H 01/06/22 01:53 Blood Pressure 140/85 01/06/22 01:53 Pulse Oximetry 96 01/06/22 01:53 MDM - Fever Medical Decision Making Patient most likely viral syndrome. Most likely reflux or possible gastroenteritis. We will laboratory studies negative. Patient responded well to GI cocktail. Believe patient's fever was made warmth after getting out of the shower. Patient's been a febrile here. Patient needing note for work. Lab Data Laboratory Results Influenza Type A Ag Negative (Negative) 01/06/22 01:05 Influenza Type B Ag Negative (Negative) 01/06/22 01:05 Discharge Plan Discharge Patient Disposition: Home Clinical Impression: Viral illness Condition: Stable Prescriptions: No Action lisinopril 10 mg tablet 10 mg PO DAILY 0RF Humira 40 mg/0.8 mL syringe kit 40 mg SUBCUT .Q 7 DAYS 0RF acetaminophen [Tylenol] 325 mg tablet 325 mg PO QID PRN0RF baclofen 10 mg tablet 10 mg PO TID 0RF ibuprofen 200 mg tablet 200 mg PO Q6H PRN0RF zinc 50 mg tablet 50 mg PO DAILY 0RF cholecalciferol (vitamin D3) 50 mcg (2,000 unit) capsule 50 mcg PO DAILY 0RF ascorbic acid (vitamin C) 500 mg capsule PO 0RF celecoxib [Celebrex] 200 mg capsule 200 mg PO DAILY Qty: 30 0RF dexamethasone 6 mg tablet 6 mg PO DAILY Qty: 5 0RF Zofran 4 mg tablet 4 mg PO Q6H PRN (Reason: nausea and vomiting) Qty: 10 0RF dicyclomine 20 mg tablet 20 mg PO TID PRN (Reason: abdominal pain) Qty: 20 0RF hydrocodone-acetaminophen 5-325 mg tablet 1 tab PO Q8H PRN (Reason: pain (scale score 7-10)) Qty: 7 0RF azithromycin 250 mg tablet See Rx Instructions .ROUTE .COMPLEX Qty: 6 0RF Rx Instructions: take 500 mg today (day 1), then 250 mg for 4 days (days 2-5) Tessalon Perles 100 mg capsule 100 mg PO TID PRN (Reason: cough) Qty: 20 0RF Zofran 4 mg tablet 4 mg PO Q8H PRN (Reason: nausea and vomiting) Qty: 15 0RF hydrocodone-acetaminophen 5-325 mg tablet 1 tab PO TID PRN (Reason: pain) Qty: 14 0RF Discharge Orders: Discharge ED (Routine); Ordered 01/06/22 Ordered By: Abner Zuleta Referrals: Quyen Branham [Primary Care Provider] - Discharge Diet: Advance as tolerated Discharge Activity: Increase activity as tolerated Patient Instructions: Viral Syndrome (ED) Activity Restrictions/Additional Instructions: Rest, drink plenty of clear fluids. Continue present medication. 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
--- NOTE | 2022-01-06 00:53 | ECG_ITS ---
[facility] Test Date: 2022-01-06 Pat Name: Ivy Duque Department: Room: Gender: Female Hvac Lead: : 1990 Requested By: Abner Zuleta Order Number: [id number] [place] MD: Pierre Atkins M.D. Measurements Intervals [place] Rate: 80 P: 24 VA: 143 QRS: 62 QRSD: 96 T: 64 QT: 361 QTc: 419 Interpretive Statements SINUS RHYTHM NONSPECIFIC T-WAVE ABNORMALITY Compared to ECG 10/07/2021 00:26:24 T-wave abnormality now present Electronically Signed On 01-07-2022 19:31:26 CDT by Pierre Atkins M.D. [id number]
[2022-01-06] MEDS: lidocaine 2% viscous 15 ML, aluminum-mag hydrox-simethicon 30 ML, sucralfate oral liq 1 GM PO (01:00)
[2022-01-06 01:33] LABS: Influenza A by IFA Negative (Negative); Influenza B by IFA Negative (Negative)
[2022-01-06 01:53] VITALS: BP 140/85; PULSE 76; RESP 22; TEMP 36.6; O2SAT 96
== END 2022-01-06 01:56 | disposition home or self-care (01) ==
PROVIDERS: Emergency Provider Nurse Practitioner Family; PCP Registered Nurse
DX: B34.9 Viral infection, unspecified (principal); F17.210 Nicotine dependence, cigarettes, uncomplicated
CPT/HCPCS: 87804; 93005; 99283

== ENCOUNTER 2022-03-13 20:19 | Emergency (ER) | payer MEDICAID, SELFPAY ==
[2022-03-13 20:43] VITALS: BMI 46.1
[2022-03-13 20:47] VITALS: BP 150/92; PULSE 96; RESP 18; TEMP 36.8; O2SAT 97
[2022-03-13 21:11] LABS: HCG Qualitative Urine. Negative (Negative)
[2022-03-13 21:13] LABS: Add Urine Microscopic? YES; Bacteria Urine 4+ /hpf; Bilirubin Urine 1+ (Negative); Blood Urine 3+ (Negative); Glucose Urine UA Norm (Normal); Ketones Urine Negative (Negative); Leukocyte Esterase Urine Trace (Negative); Nitrate Urine Positive (Negative); Protein Urine 1+ (Negative); RBC Urine 0-4 /hpf (0-2); Squamous Epithelial Cell Urine 25-40 /hpf (0-5); Urine Appearance SL Hazy (CLEAR); Urine Color Orange (Yellow); Urobilinogen Urine 4 mg/dL (Negative); WBC Urine >100 /hpf (0-5); pH Urine 5 (5-7)
[2022-03-13 21:14] LABS: Add Urine Culture? No
--- NOTE | 2022-03-13 21:20 | ED_ITS ---
HPI - Female Genitourinary General: Chief complaint: Urogenital-Female Stated complaint: Bill urinating/pain Time Seen by Provider: 03/13/22 21:15 Source: patient Mode of arrival: ambulatory Limitations: no limitations History of Present Illness: 31-year-old female states she been having dysuria that is worsened over the last 5 days. States it feels like she is urinating needles has had some difficult time urinating as well. States she had some nausea with right-sided flank pain she denies any severe pain she rates her pain a 2 out of 10 is much worse with urinating denies any vaginal discharge denies any vomiting. Associated symptoms: Reports nausea; Deny headache(s) Date of Last Menstrual Period: 02/12/21 Review of Systems Const: Denies: fever(s), chills, body aches or change in appetite Eyes: Denies: blurry vision or eye discomfort ENMT: Denies: throat pain or dental pain Card: Denies: chest pain Resp: Denies: dyspnea GI: Reports: nausea : Reports: flank pain and dysuria Musc: Denies: neck pain or back pain Skin/Breast: Denies: rash Neuro: Denies: headache(s) Psych: Denies: depression Ezekiel/Lymph: Denies: easy bruising All/Imm: Denies: urticaria PFSH ED PFSH: Medical History No pertinent past medical history Family History Mother Colon cancer Diabetes Hyperlipidemia Hypertension Stroke Heart disease Father Diabetes Hypertension Thyroid disease Denies family history of Clotting disorder Chronic kidney disease (CKD) Bleeding disorder Social History Smoking and tobacco status: current every day smoker cigarettes Quit status (tobacco): considering quitting Smoking risk assessment/counseling performed?: Yes Alcohol intake: never Caregiver/support person: Yes Lives independently: Yes History of recent travel: No Female Reproductive History: Date of last menstrual period: 02/12/21 Physical Exam Const: COMMON NORMALS: no acute distress, patient oriented x3 and healthy appearing HENMT: COMMON NORMALS: normocephalic and atraumatic HEAD & SCALP: normocephalic and atraumatic Eye: COMMON NORMALS: Equal, round and reactive pupils present and EOMs intact bilaterally PUPIL: Yes Equal, round and reactive pupils present Neck/C-Spine: COMMON NORMALS: full ROM and supple Chest: COMMONS NORMALS: normal inspection of the chest and normal palpation of entire chest wall Resp: COMMON NORMALS: normal respiratory effort, No retractions, No use of accessory muscles and clear to auscultation bilaterally AUSCULTATION: clear to auscultation bilaterally Cardio: COMMON NORMALS: regular rate, regular rhythm and No murmurs present (Cardio) RATE: regular rate RHYTHM: regular rhythm GI: COMMON NORMALS: Normal to inspection, nondistended, normoactive bowel sounds present, Soft to palpation, non-tender and no masses PALPATION: Yes Soft to palpation : OTHER: slight right cva tenderness Extremity: COMMON NORMALS: normal to inspection and full ROM Neuro: COMMON NORMALS: patient oriented x3, moves all extremities and no focal motor deficits Psych: COMMON NORMALS: mental status grossly normal, Normal thought process present and cooperative THOUGHT PROCESS: Normal thought process present Skin: COMMON NORMALS: no rashes or lesions noted and no wounds GENERAL SKIN EXAM: no rashes or lesions noted Course Vital Signs: Vital signs: Vital Signs Temperature 98.2 F 03/13/22 20:47 Pulse Rate 96 03/13/22 20:47 Respiratory Rate 18 03/13/22 20:47 Blood Pressure 150/92 03/13/22 20:47 Pulse Oximetry 97 03/13/22 20:47 MDM - Female Medical Decision Making Patient presents here with likely acute cystitis we will place her on Cipro along with pain pills and nausea pills informed her she starts having vomiting or any worsening symptoms she is to return to the ER she is to follow-up with her PCP in 5 to 7 days she understands agrees to plan. Lab Data Laboratory Results HCG, Qual Negative (Negative) 03/13/22 20:50 Urine Color [place] (Yellow) 03/13/22 20:55 Urine Appearance Sl hazy (CLEAR) 03/13/22 20:55 Urine pH 5 (5-7) 03/13/22 20:55 Ur Specific [place] 1.020 (1.005-1.030) 03/13/22 20:55 Urine Protein 1+ (Negative) H 03/13/22 20:55 Urine Glucose (UA) Norm (Normal) 03/13/22 20:55 Urine Ketones Negative (Negative) 03/13/22 20:55 Urine Blood 3+ (Negative) H 03/13/22 20:55 Urine Nitrate Positive (Negative) H 03/13/22 20:55 Urine Bilirubin 1+ (Negative) H 03/13/22 20:55 Urine Urobilinogen 4 mg/dL (Negative) H 03/13/22 20:55 Ur Leukocyte Esterase Trace (Negative) H 03/13/22 20:55 Urine RBC 0-4 /hpf (0-2) H 03/13/22 20:55 Urine WBC >100 /hpf (0-5) H 03/13/22 20:55 Ur Squamous Epith Cells 25-40 /hpf (0-5) H 03/13/22 20:55 Amorphous Sediment Not Reportable 03/13/22 20:55 Urine Bacteria 4+ /hpf (NONE) H 03/13/22 20:55 Discharge Plan Discharge Patient Disposition: Home Clinical Impression: Acute cystitis Qualifiers: Hematuria presence: without hematuria Qualified Code(s): N30.00 - Acute cystitis without hematuria Condition: Stable Prescriptions: New hydrocodone-acetaminophen 5-325 mg tablet 1 tab PO Q6H PRN (Reason: pain) Qty: 14 0RF Cipro 500 mg tablet 500 mg PO BID Qty: 14 0RF ondansetron 4 mg tablet,disintegrating 4 mg PO Q6H PRN (Reason: nausea and vomiting) Qty: 14 0RF No Action lisinopril 10 mg tablet 10 mg PO DAILY 0RF Humira 40 mg/0.8 mL syringe kit 40 mg SUBCUT .Q 7 DAYS 0RF acetaminophen [Tylenol] 325 mg tablet 325 mg PO QID PRN0RF baclofen 10 mg tablet 10 mg PO TID 0RF ibuprofen 200 mg tablet 200 mg PO Q6H PRN0RF zinc 50 mg tablet 50 mg PO DAILY 0RF cholecalciferol (vitamin D3) 50 mcg (2,000 unit) capsule 50 mcg PO DAILY 0RF ascorbic acid (vitamin C) 500 mg capsule PO 0RF celecoxib [Celebrex] 200 mg capsule 200 mg PO DAILY Qty: 30 0RF dexamethasone 6 mg tablet 6 mg PO DAILY Qty: 5 0RF Zofran 4 mg tablet 4 mg PO Q6H PRN (Reason: nausea and vomiting) Qty: 10 0RF dicyclomine 20 mg tablet 20 mg PO TID PRN (Reason: abdominal pain) Qty: 20 0RF hydrocodone-acetaminophen 5-325 mg tablet 1 tab PO Q8H PRN (Reason: pain (scale score 7-10)) Qty: 7 0RF azithromycin 250 mg tablet See Rx Instructions .ROUTE .COMPLEX Qty: 6 0RF Rx Instructions: take 500 mg today (day 1), then 250 mg for 4 days (days 2-5) Tessalon Perles 100 mg capsule 100 mg PO TID PRN (Reason: cough) Qty: 20 0RF Zofran 4 mg tablet 4 mg PO Q8H PRN (Reason: nausea and vomiting) Qty: 15 0RF hydrocodone-acetaminophen 5-325 mg tablet 1 tab PO TID PRN (Reason: pain) Qty: 14 0RF Discharge Orders: Discharge ED (Routine); Ordered 03/13/22 Ordered By: Brian Pate Referrals: Janine Lambert FNP [Primary Care Provider] - 1-3 days Discharge Diet: Advance as tolerated Discharge Activity: Resume usual activity Patient Instructions: Urinary Tract Infection in Women (ED), Opioid Safety Coding Level of Care Code ED Air Sampling And Monitoring for Jessica Cassidy
[2022-03-13] MEDS: HYDROcodone-acetaminophen 5-325 mg Tablet 1 TAB PO (21:25)
[2022-03-13] MEDS: ciprofloxacin 500 mg Tablet PO (21:25)
[2022-03-13] MEDS: ondansetron 4 MG Tablet PO (21:25)
[2022-03-13 21:28] VITALS: BP 151/101; PULSE 89; RESP 18; TEMP 36.6; O2SAT 97
== END 2022-03-13 21:30 | disposition home or self-care (01) ==
PROVIDERS: Emergency Provider Emergency Medicine; PCP Registered Nurse
DX: N30.00 Acute cystitis without hematuria (principal); Z79.899 Other long term (current) drug therapy; F17.210 Nicotine dependence, cigarettes, uncomplicated
CPT/HCPCS: 81001; 81025; 99283; Q0162

== ENCOUNTER 2022-04-04 02:55 | Emergency (ER) | payer MEDICAID, SELFPAY ==
[2022-04-04] VITALS (10 sets, daily range): BP systolic 139–160; BP diastolic 82–113; PULSE 72–89; RESP 16–24; TEMP 36.4; O2SAT 95–98; BMI 56.9
--- NOTE | 2022-04-04 03:17 | ED_ITS ---
Documented by User: Oscar Montana MD 04/16/22 21:52 HPI - COVID General: Chief Complaint: COVID symptoms Stated Complaint: Sore throat,N\V,[place]iahrea Time Seen by Provider: 04/04/22 03:09 Triage information: No fever, cough or shortness of breath . No known COVID + exposure last 14 days History of Present Illness: Ms. Duque is a 31-year-old lady with history of tobaccoism and Humira use secondary to skin boils who presents to the emergency department due to generalized illness. She reports approximately 2 days of symptoms initially with congestion and cough as well as shortness of breath. She subsequently has developed fevers, generalized malaise, lower abdominal discomfort and diarrhea. She additionally endorses some dysuria. She was treated approximately 3 to 4 weeks ago for a urinary tract infection which had similar symptoms with regards to the abdominal discomfort and dysuria which did not completely resolve. Overall intensity symptoms is moderate to severe. Course is worsened. No other specific changes in health, exacerbating, or alleviating factors identified. COVID 19 common symptoms: positive cough, dyspnea, fatigue and diarrhea Onset (ago): day(s) Severity: moderate Pertinent comorbid conditions: other COVID Results: SARS-CoV-2 Antigen (Rapid) Negative (Negative) 04/04/22 03:14 SARS-CoV-2 RNA (RT-PCR) Detected (NOT DETECTED) A 10/19/21 23: 55 Nasal/Oral Coronavirus 2019 PCR Not detected 08/21/21 05:21 SARS-CoV-2 (PCR) Not detected (NOT DETECT) 04/04/22 08:00 Coronavirus Type 229E (PCR) Not detected (NOT DETECT) 04/04/22 08:00 Review of Systems General: Reports: 10 or more systems reviewed and unremarkable except in HPI and below Const: Reports: fatigue Resp: Reports: dyspnea GI: Reports: diarrhea PFSH ED PFSH: Medical History No pertinent past medical history Family History Mother Colon cancer Diabetes Hyperlipidemia Hypertension Stroke Heart disease Father Diabetes Hypertension Thyroid disease Denies family history of Clotting disorder Chronic kidney disease (CKD) Bleeding disorder Social History Smoking and tobacco status: current every day smoker cigarettes Quit status (tobacco): considering quitting Smoking risk assessment/counseling performed?: Yes Alcohol intake: never Caregiver/support person: Yes Lives independently: Yes History of recent travel: No Female Reproductive History: Date of last menstrual period: 02/12/21 Physical Exam Const: COMMON NORMALS: alert GENERAL APPEARANCE: cooperative, well developed and ill appearing (mildly) HENMT: COMMON NORMALS: normocephalic and atraumatic HEAD & SCALP: normocephalic and atraumatic THROAT: posterior oropharynx normal Eye: COMMON NORMALS: conjunctivae normal CONJUNCTIVA: Yes conjunctivae normal SCLERA: sclerae normal Neck/C-Spine: COMMON NORMALS: supple GENERAL: Yes trachea midline Resp: COMMON NORMALS: normal respiratory effort EFFORT & INSPECTION: Yes able to speak in complete sentences Cardio: COMMON NORMALS: regular rate and regular rhythm RATE: regular rate RHYTHM: regular rhythm GI: COMMON NORMALS: Soft to palpation PALPATION: Yes Soft to palpation, Yes Tenderness to palpation present (GI), No Guarding due to palpation present (GI) and No Rigid due to palpation PERCUSSION: normal to percussion Extremity: GENERAL: Yes normal exam except as noted and No edema Neuro: COMMON NORMALS: moves all extremities SENSORIUM/ORIENTATION: Yes alert and No Orientation impaired Psych: COMMON NORMALS: mental status grossly normal and Normal thought process present THOUGHT PROCESS: Normal thought process present Course ED course: - Patient was seen and evaluated by me at bedside - Patient placed on cardiac monitors, IV access obtained - Initial evaluation notable for exam as above, nontoxic, mildly ill-appearing - Labs and xrays personally interpreted by me -RT treatment, steroids, fluids, analgesia ordered - Labs notable for leukocytosis, some evidence of mild dehydration. Urinalysis pending. - Imaging notable for no lobar consolidation or pneumothorax. CT pending. - Patient care handed off to Dr. Mcleod and patient evaluation Vital Signs: Vital signs: Vital Signs Temperature 97.6 F 04/04/22 03:09 Pulse Rate 82 04/04/22 08:38 Respiratory Rate 16 04/04/22 08:38 Blood Pressure 151/95 04/04/22 08:38 Pulse Oximetry 96 04/04/22 08:38 Oxygen Delivery Mo thod 04/04/22 08:37 MDM - COVID Lab Data : 04/04/22 03:55 04/04/22 03:55 Radiology Impressions Chest X-Ray 04/04/22 04:42 IMPRESSION: No chest radiographic evidence of acute cardiopulmonary disease. Abdomen/Pelvis CT 04/04/22 05:34 IMPRESSION: 1. No acute abnormality seen on the non-contrast abdominal and pelvic CT. 2. Some sigmoid colonic diverticula, without CT evidence of diverticulitis. 3. Status post cholecystectomy, hysterectomy and appendectomy. Laboratory Results WBC 13.6 10^3/uL (4.0-10.0) H 04/04/22 03:55 RBC 4.87 10^6/uL (4.1-5.3) 04/04/22 03:55 Hgb 15.4 g/dL (11.5-15.3) H 04/04/22 03:55 Hct 44.0 % (37.0-47.0) 04/04/22 03:55 MCV 90.3 fl (81-99) 04/04/22 03:55 MCH 31.6 pg (28.0-34.0) 04/04/22 03:55 MCHC 35.0 g/dL (30.0-36.0) 04/04/22 03:55 RDW 12.9 % (12.1-15.1) 04/04/22 03:55 Plt Count 212 10^3/cmm (130-400) 04/04/22 03:55 MPV 10.0 fL (7.4-10.4) 04/04/22 03:55 Neut % (Auto) 58.3 % 04/04/22 03:55 Lymph % (Auto) 35.5 % 04/04/22 03:55 [place] % (Auto) 4.4 % 04/04/22 03:55 Eos % (Auto) 1.3 % 04/04/22 03:55 Baso % (Auto) 0.2 % 04/04/22 03:55 Neut # (Auto) 7.93 10^3/uL (1.8-7.7) H 04/04/22 03:55 Lymph # (Auto) 4.8 10^3/uL (0.8-4.8) 04/04/22 03:55 [place] # (Auto) 0.6 10^3/uL (0.2-0.9) 04/04/22 03:55 Eos # (Auto) 0.2 10^3/uL (0.0-0.8) 04/04/22 03:55 Baso # (Auto) 0.0 10^3/uL (0.0-0.1) 04/04/22 03:55 Nucleated RBC % (auto) 0 % 04/04/22 03:55 Nucleated RBCs # 0.0 /100WBC 04/04/22 03:55 Sodium 133 mmol/L (136-145) L 04/04/22 03:55 Potassium 3.9 mmol/L (3.5-5.1) 04/04/22 03:55 Chloride 100 mmol/L (98-107) 04/04/22 03:55 Carbon Dioxide 25 mmol/L (22-29) 04/04/22 03:55 Anion Gap 11.9 (5-19) 04/04/22 03:55 BUN 12 mg/dL (6-20) 04/04/22 03:55 Creatinine 0.6 mg/dL (0.5-0.9) 04/04/22 03:55 GFR Calculation 115.1 mL/min (90-130) 04/04/22 03:55 Glucose 105 mg/dL (65-115) 04/04/22 03:55 Calculated Osmolality 276 mOsm/kg (285-295) L 04/04/22 03:55 Calcium 8.9 mg/dL (8.5-10.5) 04/04/22 03:55 Total Bilirubin 0.3 mg/dL (0.15-1.2) 04/04/22 03:55 AST 17 U/L (0-32) 04/04/22 03:55 ALT 22 U/L (0-33) 04/04/22 03:55 Alkaline Phosphatase 78 IU/L (35-105) 04/04/22 03:55 C-Reactive Protein 13.1 mg/L (0.0-4.9) H 04/04/22 03:55 Total Protein 6.8 g/dL (6.6-8.7) 04/04/22 03:55 Albumin 3.6 g/dL (3.5-5.2) 04/04/22 03:55 Globulin 3.2 g/dL (1.3-4.6) 04/04/22 03:55 Lipase 16 U/L (13-60) 04/04/22 03:55 Procalcitonin 0.04 ng/mL (0-0.5) 04/04/22 03:55 HCG, Qual Negative (Negative) 04/04/22 04:50 Urine Color [place] (Yellow) 04/04/22 04:50 Urine Appearance Clear (CLEAR) 04/04/22 04:50 Urine pH 6 (5-7) 04/04/22 04:50 Ur Specific [place] 1.020 (1.005-1.030) 04/04/22 04:50 Urine Protein 1+ (Negative) H 04/04/22 04:50 Urine Glucose (UA) Norm (Normal) 04/04/22 04:50 Urine Ketones Negative (Negative) 04/04/22 04:50 Urine Blood 2+ (Negative) H 04/04/22 04:50 Urine Nitrate Positive (Negative) H 04/04/22 04:50 Urine Bilirubin 2+ (Negative) H 04/04/22 04:50 Urine Urobilinogen 4 mg/dL (Negative) H 04/04/22 04:50 Ur Leukocyte Esterase Negative (Negative) 04/04/22 04:50 Urine RBC 0-4 /hpf (0-2) H 04/04/22 04:50 Urine WBC 0-4 /hpf (0-5) H 04/04/22 04:50 Ur Squamous Epith Cells 25-40 /hpf (0-5) H 04/04/22 04:50 Amorphous Sediment 1+ /hpf 04/04/22 04:50 Urine Bacteria Trace /hpf (NONE) 04/04/22 04:50 Urine Mucus Trace /hpf 04/04/22 04:50 Coronavirus 229E (PCR) Not detected (NOT DETECT) 04/04/22 08:00 Influenza Type A Ag Negative (Negative) 04/04/22 03:14 Influenza Type B Ag Negative (Negative) 04/04/22 03:14 SARS-CoV-2 (PCR) Not detected (NOT DETECT) 04/04/22 08:00 SARS-CoV-2 Ag (Rapid) Negative (Negative) 04/04/22 03:14 Group A Strep Rapid Negative (Negative) 04/04/22 03:14 SARS-CoV-2 Antigen (Rapid) Negative (Negative) 04/04/22 03:14 SARS-CoV-2 RNA (RT-PCR) Detected (NOT DETECTED) A 10/19/21 23: 55 Nasal/Oral Coronavirus 2019 PCR Not detected 08/21/21 05:21 SARS-CoV-2 (PCR) Not detected (NOT DETECT) 04/04/22 08:00 Coronavirus Type 229E (PCR) Not detected (NOT DETECT) 04/04/22 08:00 Discharge Plan Discharge Patient Disposition: Home Clinical Impression: Pneumonia, Acute exacerbation of chronic obstructive airways disease Condition: Stable Prescriptions: New albuterol sulfate 90 mcg/actuation HFA aerosol inhaler 2 inh inhalation Q4H PRN (Reason: shortness of breath or wheezing) Qty: 8.5 0RF No Action lisinopril 10 mg tablet 10 mg PO DAILY Humira 40 mg/0.8 mL syringe kit 40 mg SUBCUT .Q 7 DAYS acetaminophen [Tylenol] 325 mg tablet 325 mg PO QID PRN baclofen 10 mg tablet 10 mg PO TID ibuprofen 200 mg tablet 200 mg PO Q6H PRN zinc 50 mg tablet 50 mg PO DAILY cholecalciferol (vitamin D3) 50 mcg (2,000 unit) capsule 50 mcg PO DAILY ascorbic acid (vitamin C) 500 mg capsule PO celecoxib [Celebrex] 200 mg capsule 200 mg PO DAILY Qty: 30 0RF dexamethasone 6 mg tablet 6 mg PO DAILY Qty: 5 0RF Zofran 4 mg tablet 4 mg PO Q6H PRN (Reason: nausea and vomiting) Qty: 10 0RF dicyclomine 20 mg tablet 20 mg PO TID PRN (Reason: abdominal pain) Qty: 20 0RF hydrocodone-acetaminophen 5-325 mg tablet 1 tab PO Q8H PRN (Reason: pain (scale score 7-10)) Qty: 7 0RF azithromycin 250 mg tablet See Rx Instructions .ROUTE .COMPLEX Qty: 6 0RF Rx Instructions: take 500 mg today (day 1), then 250 mg for 4 days (days 2-5) Tessalon Perles 100 mg capsule 100 mg PO TID PRN (Reason: cough) Qty: 20 0RF Zofran 4 mg tablet 4 mg PO Q8H PRN (Reason: nausea and vomiting) Qty: 15 0RF hydrocodone-acetaminophen 5-325 mg tablet 1 tab PO TID PRN (Reason: pain) Qty: 14 0RF hydrocodone-acetaminophen 5-325 mg tablet 1 tab PO Q6H PRN (Reason: pain) Qty: 14 0RF Cipro 500 mg tablet 500 mg PO BID Qty: 14 0RF ondansetron 4 mg tablet,disintegrating 4 mg PO Q6H PRN (Reason: nausea and vomiting) Qty: 14 0RF Discharge Orders: Discharge ED (Routine); Ordered 04/04/22 Ordered By: Raghu Mcleod Referrals: Janine Lambert FNP [Primary Care Provider] - Discharge Diet: Usual diet Discharge Activity: Increase activity as tolerated Patient Instructions: COPD (Chronic Obstructive Pulmonary Disease) (ED), Pneumonia (ED), Opioid Safety Activity Restrictions/Additional Instructions: Thank you for visiting the emergency department. You were seen and evaluated for illness. The exact cause of your symptoms is unclear though likely related to pneumonia with exacerbation of underlying lung disease. This will be treated with antibiotics and steroids. Additionally I will prescribe inhaler. Please use inhaler 2 puffs every 4 hours for 24 hours followed by 2 puffs every 6 hours for 24 hours followed by 2 puffs every 8 hours for 24 hours and then as needed for wheezing and shortness of breath. Please follow-up with your primary care provider. Please return to the emergency department for worsening symptoms or anything else that you are concerned about a feel needs emergency department evaluation. Sign Out Sign Out Data: Patient Sign Out occurred on 04/04/22 at 07:22. Patient's care was discussed, and care was transferred from to Raghu Mcleod DO. 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 Documented by User: Raghu Mcleod DO 04/04/22 13:59 HPI - COVID General: Chief Complaint: COVID symptoms Stated Complaint: Sore throat,N\V,[place]iah[place] Time Seen by Provider: 04/04/22 03:09 COVID Results: SARS-CoV-2 Antigen (Rapid) Negative (Negative) 04/04/22 03:14 SARS-CoV-2 RNA (RT-PCR) Detected (NOT DETECTED) A 10/19/21 23: 55 Nasal/Oral Coronavirus 2019 PCR Not detected 08/21/21 05:21 SARS-CoV-2 (PCR) Not detected (NOT DETECT) 04/04/22 08:00 Coronavirus Type 229E (PCR) Not detected (NOT DETECT) 04/04/22 08:00 PFSH ED PFSH: Medical History No pertinent past medical history Family History Mother Colon cancer Diabetes Hyperlipidemia Hypertension Stroke Heart disease Father Diabetes Hypertension Thyroid disease Denies family history of Clotting disorder Chronic kidney disease (CKD) Bleeding disorder Social History Smoking and tobacco status: current every day smoker cigarettes Quit status (tobacco): considering quitting Smoking risk assessment/counseling performed?: Yes Alcohol intake: never Caregiver/support person: Yes Lives independently: Yes History of recent travel: No Course Vital Signs: Vital signs: Vital Signs Temperature 97.6 F 04/04/22 03:09 Pulse Rate 82 04/04/22 08:38 Respiratory Rate 16 04/04/22 08:38 Blood Pressure 151/95 04/04/22 08:38 Pulse Oximetry 96 04/04/22 08:38 Oxygen Delivery Me thod 04/04/22 08:37 MDM - COVID Medical Decision Making Care assumed at change of shift. CT abdomen and UA are negative. Discharge patient home with coverage for pneumonia. Started on Levaquin as well as albuterol. Follow-up with primary care within the next few days return if is worsening problems. States she is feeling much better after the nebulizer br eathing is improved on exam her wheezing is decreased. Medical Records I reviewed the patient's medical records. Lab Data I reviewed the patient's lab results. : 04/04/22 03:55 04/04/22 03:55 Radiology Impressions Chest X-Ray 04/04/22 04:42 IMPRESSION: No chest radiographic evidence of acute cardiopulmonary disease. Abdomen/Pelvis CT 04/04/22 05:34 IMPRESSION: 1. No acute abnormality seen on the non-contrast abdominal and pelvic CT. 2. Some sigmoid colonic diverticula, without CT evidence of diverticulitis. 3. Status post cholecystectomy, hysterectomy and appendectomy. Laboratory Results WBC 13.6 10^3/uL (4.0-10.0) H 04/04/22 03:55 RBC 4.87 10^6/uL (4.1-5.3) 04/04/22 03:55 Hgb 15.4 g/dL (11.5-15.3) H 04/04/22 03:55 Hct 44.0 % (37.0-47.0) 04/04/22 03:55 MCV 90.3 fl (81-99) 04/04/22 03:55 MCH 31.6 pg (28.0-34.0) 04/04/22 03:55 MCHC 35.0 g/dL (30.0-36.0) 04/04/22 03:55 RDW 12.9 % (12.1-15.1) 04/04/22 03:55 Plt Count 212 10^3/cmm (130-400) 04/04/22 03:55 MPV 10.0 fL (7.4-10.4) 04/04/22 03:55 Neut % (Auto) 58.3 % 04/04/22 03:55 Lymph % (Auto) 35.5 % 04/04/22 03:55 [place] % (Auto) 4.4 % 04/04/22 03:55 Eos % (Auto) 1.3 % 04/04/22 03:55 Baso % (Auto) 0.2 % 04/04/22 03:55 Neut # (Auto) 7.93 10^3/uL (1.8-7.7) H 04/04/22 03:55 Lymph # (Auto) 4.8 10^3/uL (0.8-4.8) 04/04/22 03:55 [place] # (Auto) 0.6 10^3/uL (0.2-0.9) 04/04/22 03:55 Eos # (Auto) 0.2 10^3/uL (0.0-0.8) 04/04/22 03:55 Baso # (Auto) 0.0 10^3/uL (0.0-0.1) 04/04/22 03:55 Nucleated RBC % (auto) 0 % 04/04/22 03:55 Nucleated RBCs # 0.0 /100WBC 04/04/22 03:55 Sodium 133 mmol/L (136-145) L 04/04/22 03:55 Potassium 3.9 mmol/L (3.5-5.1) 04/04/22 03:55 Chloride 100 mmol/L (98-107) 04/04/22 03:55 Carbon Dioxide 25 mmol/L (22-29) 04/04/22 03:55 Anion Gap 11.9 (5-19) 04/04/22 03:55 BUN 12 mg/dL (6-20) 04/04/22 03:55 Creatinine 0.6 mg/dL (0.5-0.9) 04/04/22 03:55 GFR Calculation 115.1 mL/min (90-130) 04/04/22 03:55 Glucose 105 mg/dL (65-115) 04/04/22 03:55 Calculated Osmolality 276 mOsm/kg (285-295) L 04/04/22 03:55 Calcium 8.9 mg/dL (8.5-10.5) 04/04/22 03:55 Total Bilirubin 0.3 mg/dL (0.15-1.2) 04/04/22 03:55 AST 17 U/L (0-32) 04/04/22 03:55 ALT 22 U/L (0-33) 04/04/22 03:55 Alkaline Phosphatase 78 IU/L (35-105) 04/04/22 03:55 C-Reactive Protein 13.1 mg/L (0.0-4.9) H 04/04/22 03:55 Total Protein 6.8 g/dL (6.6-8.7) 04/04/22 03:55 Albumin 3.6 g/dL (3.5-5.2) 04/04/22 03:55 Globulin 3.2 g/dL (1.3-4.6) 04/04/22 03:55 Lipase 16 U/L (13-60) 04/04/22 03:55 Procalcitonin 0.04 ng/mL (0-0.5) 04/04/22 03:55 HCG, Qual Negative (Negative) 04/04/22 04:50 Urine Color [place] (Yellow) 04/04/22 04:50 Urine Appearance Clear (CLEAR) 04/04/22 04:50 Urine pH 6 (5-7) 04/04/22 04:50 Ur Specific [place] 1.020 (1.005-1.030) 04/04/22 04:50 Urine Protein 1+ (Negative) H 04/04/22 04:50 Urine Glucose (UA) Norm (Normal) 04/04/22 04:50 Urine Ketones Negative (Negative) 04/04/22 04:50 Urine Blood 2+ (Negative) H 04/04/22 04:50 Urine Nitrate Positive (Negative) H 04/04/22 04:50 Urine Bilirubin 2+ (Negative) H 04/04/22 04:50 Urine Urobilinogen 4 mg/dL (Negative) H 04/04/22 04:50 Ur Leukocyte Esterase Negative (Negative) 04/04/22 04:50 Urine RBC 0-4 /hpf (0-2) H 04/04/22 04:50 Urine WBC 0-4 /hpf (0-5) H 04/04/22 04:50 Ur Squamous Epith Cells 25-40 /hpf (0-5) H 04/04/22 04:50 Amorphous Sediment 1+ /hpf 04/04/22 04:50 Urine Bacteria Trace /hpf (NONE) 04/04/22 04:50 Urine Mucus Trace /hpf 04/04/22 04:50 Coronavirus 229E (PCR) Not detected (NOT DETECT) 04/04/22 08:00 Influenza Type A Ag Negative (Negative) 04/04/22 03:14 Influenza Type B Ag Negative (Negative) 04/04/22 03:14 SARS-CoV-2 (PCR) Not detected (NOT DETECT) 04/04/22 08:00 SARS-CoV-2 Ag (Rapid) Negative (Negative) 04/04/22 03:14 Group A Strep Rapid Negative (Negative) 04/04/22 03:14 SARS-CoV-2 Antigen (Rapid) Negative (Negative) 04/04/22 03:14 SARS-CoV-2 RNA (RT-PCR) Detected (NOT DETECTED) A 10/19/21 23: 55 Nasal/Oral Coronavirus 2019 PCR Not detected 08/21/21 05:21 SARS-CoV-2 (PCR) Not detected (NOT DETECT) 04/04/22 08:00 Coronavirus Type 229E (PCR) Not detected (NOT DETECT) 04/04/22 08:00 Discharge Plan Discharge Patient Disposition: Home Clinical Impression: Pneumonia, Acute exacerbation of chronic obstructive airways disease Condition: Stable Prescriptions: New albuterol sulfate 90 mcg/actuation HFA aerosol inhaler 2 inh inhalation Q4H PRN (Reason: shortness of breath or wheezing) Qty: 8.5 0RF No Action lisinopril 10 mg tablet 10 mg PO DAILY Humira 40 mg/0.8 mL syringe kit 40 mg SUBCUT .Q 7 DAYS acetaminophen [Tylenol] 325 mg tablet 325 mg PO QID PRN baclofen 10 mg tablet 10 mg PO TID ibuprofen 200 mg tablet 200 mg PO Q6H PRN zinc 50 mg tablet 50 mg PO DAILY cholecalciferol (vitamin D3) 50 mcg (2,000 unit) capsule 50 mcg PO DAILY ascorbic acid (vitamin C) 500 mg capsule PO celecoxib [Celebrex] 200 mg capsule 200 mg PO DAILY Qty: 30 0RF dexamethasone 6 mg tablet 6 mg PO DAILY Qty: 5 0RF Zofran 4 mg tablet 4 mg PO Q6H PRN (Reason: nausea and vomiting) Qty: 10 0RF dicyclomine 20 mg tablet 20 mg PO TID PRN (Reason: abdominal pain) Qty: 20 0RF hydrocodone-acetaminophen 5-325 mg tablet 1 tab PO Q8H PRN (Reason: pain (scale score 7-10)) Qty: 7 0RF azithromycin 250 mg tablet See Rx Instructions .ROUTE .COMPLEX Qty: 6 0RF Rx Instructions: take 500 mg today (day 1), then 250 mg for 4 days (days 2-5) Tessalon [place] 100 mg capsule 100 mg PO TID PRN (Reason: cough) Qty: 20 0RF Zofran 4 mg tablet 4 mg PO Q8H PRN (Reason: nausea and vomiting) Qty: 15 0RF hydrocodone-acetaminophen 5-325 mg tablet 1 tab PO TID PRN (Reason: pain) Qty: 14 0RF hydrocodone-acetaminophen 5-325 mg tablet 1 tab PO Q6H PRN (Reason: pain) Qty: 14 0RF Cipro 500 mg tablet 500 mg PO BID Qty: 14 0RF ondansetron 4 mg tablet,disintegrating 4 mg PO Q6H PRN (Reason: nausea and vomiting) Qty: 14 0RF Discharge Orders: Discharge ED (Routine); Ordered 04/04/22 Ordered By: Raghu Mcleod Referrals: Janine Lambert FNP [Primary Care Provider] - Discharge Diet: Usual diet Discharge Activity: Increase activity as tolerated Patient Instructions: COPD (Chronic Obstructive Pulmonary Disease) (ED), Pneumonia (ED), Opioid Safety Activity Restrictions/Additional Instructions: Thank you for visiting the emergency department. You were seen and evaluated for illness. The exact cause of your symptoms is unclear though likely related to pneumonia with exacerbation of underlying lung disease. This will be treated with antibiotics and steroids. Additionally I will prescribe inhaler. Please use inhaler 2 puffs every 4 hours for 24 hours followed by 2 puffs every 6 hours for 24 hours followed by 2 puffs every 8 hours for 24 hours and then as needed for wheezing and shortness of breath. Please follow-up with your primary care provider. Please return to the emergency department for worsening symptoms or anything else that you are concerned about a feel needs emergency department evaluation. Sign Out Sign Out Data: Patient Sign Out occurred on 04/04/22 at 07:22. Patient's care was discussed, and care was transferred from to Raghu Mcleod DO. 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
[2022-04-04 03:29] LABS: Rapid Strep A Test Negative (Negative)
[2022-04-04 03:39] LABS: Influenza A by IFA Negative (Negative); Influenza B by IFA Negative (Negative); SARS Covid-2 Antigen Negative (Negative)
[2022-04-04 04:04] LABS: Basophils % 0.2 %; Eosinophils # 0.2 10^3/uL (0.0-0.8); Eosinophils % 1.3 %; Hemoglobin 15.4 g/dL (11.5-15.3); Lymphocytes # 4.8 10^3/uL (0.8-4.8); Lymphocytes % 35.5 %; Mean Corpuscular Hemoglobin 31.6 pg (28.0-34.0); Mean Corpuscular Volume 90.3 fl (81-99); Monocytes # 0.6 10^3/uL (0.2-0.9); Monocytes % 4.4 %; Neutrophils # 7.93 10^3/uL (1.8-7.7); Neutrophils % 58.3 %; Nucleated Red Blood Cells % 0 %; Platelet Count 212 10^3/cmm (130-400); Red Blood Count 4.87 10^6/uL (4.1-5.3); Red Cell Distribution Width 12.9 % (12.1-15.1); White Blood Count 13.6 10^3/uL (4.0-10.0)
[2022-04-04 04:15] LABS: Slide Review Slide Review Perform
[2022-04-04] MEDS: sodium chloride 0.9% 1,000 ML 999 ML IV (04:15)
[2022-04-04 04:22] LABS: Alanine Aminotransferase 22 U/L (0-33); Albumin Level 3.6 g/dL (3.5-5.2); Alkaline Phosphatase 78 IU/L (35-105); Anion Gap 11.9 (5-19); Aspartate Amino Transferase 17 U/L (0-32); Blood Urea Nitrogen 12 mg/dL (6-20); Calcium 8.9 mg/dL (8.5-10.5); Carbon Dioxide 25 mmol/L (22-29); Chloride 100 mmol/L (98-107); Globulin 3.2 g/dL (1.3-4.6); Glomerular Filtration Rate 115.1 mL/min (90-130); Glucose 105 mg/dL (65-115); Lipase 16 U/L (13-60); Osmolality Calculated 276 mOsm/kg (285-295); Potassium 3.9 mmol/L (3.5-5.1); Sodium 133 mmol/L (136-145); Total Bilirubin 0.3 mg/dL (0.15-1.2); Total Protein 6.8 g/dL (6.6-8.7)
--- NOTE | 2022-04-04 04:42 | XRR_ITS ---
PROCEDURE INFORMATION: Exam: XR Chest Exam date and time: 04/04/2022 5:13 AM Age: 31 years old Clinical indication: Dyspnea; Patient HX: SOB chest pressure x 3 days; Additional info: Cough, SOB TECHNIQUE: Imaging protocol: Radiologic exam of the chest. Views: 1 view. COMPARISON: CR XR chest 1V portable [id number] 10/19/2021 11:48 PM FINDINGS: Lungs: There are normal lung volumes without interstitial or airspace opacities. Pleural spaces: There are no pleural effusions or pneumothorax. Heart/Mediastinum: The heart size is normal. The mediastinal contour is normal. The trachea is in the midline. Bones/joints: No acute abnormalities. XR/XR chest 1V portable [id number] IMPRESSION: No chest radiographic evidence of acute cardiopulmonary disease.
[2022-04-04 04:52] LABS: C Reactive Protein 13.1 mg/L (0.0-4.9)
[2022-04-04 04:59] LABS: Procalcitonin 0.04 ng/mL (0-0.5)
[2022-04-04 05:00] LABS: HCG Qualitative Urine. Negative (Negative)
[2022-04-04 05:09] LABS: Add Urine Culture? No; Add Urine Microscopic? YES; Amorphous Sediment Urine 1+ /hpf; Bacteria Urine TRACE /hpf; Bilirubin Urine 2+ (Negative); Blood Urine 2+ (Negative); Glucose Urine UA Norm (Normal); Ketones Urine Negative (Negative); Leukocyte Esterase Urine Negative (Negative); Mucus Urine TRACE /hpf; Nitrate Urine Positive (Negative); Protein Urine 1+ (Negative); RBC Urine 0-4 /hpf (0-2); Squamous Epithelial Cell Urine 25-40 /hpf (0-5); Urine Appearance Clear (CLEAR); Urine Color Orange (Yellow); Urobilinogen Urine 4 mg/dL (Negative); WBC Urine 0-4 /hpf (0-5); pH Urine 6 (5-7)
[2022-04-04] MEDS: morphine 4 mg/mL SDV 1 mL IVP (05:10)
--- NOTE | 2022-04-04 05:34 | CTR_ITS ---
PROCEDURE INFORMATION: Exam: CT Abdomen And Pelvis Without Contrast Exam date and time: 04/04/2022 5:46 AM Age: 31 years old Clinical indication: Abdominal pain; Localized; Prior surgery; Surgery type: Appy. Gb. Hysterectomy. Csection. Patient HX: C/O lower abd pain with dysuria. States was on antibiotics for UTI two weeks ago. ; Additional info: R flank pain TECHNIQUE: Imaging protocol: Computed tomography of the abdomen and pelvis without contrast. Radiation optimization: All CT scans at this facility use at least one of these dose optimization techniques: automated exposure control; mA and/or kV adjustment per patient size (includes targeted exams where dose is matched to clinical indication); or iterative reconstruction. COMPARISON: CT abdomen pelvis w con* [id number] 10/01/2021 4:12 AM RADIATION DOSE METRICS: Total DLP (mGy-cm): 1341.63 FINDINGS: Liver: Appears unremarkable on the non-contrast CT. Gallbladder and bile ducts: Status post prior cholecystectomy. No biliary ductal dilatation. Pancreas: Appears unremarkable on the non-contrast CT. No ductal dilation. Spleen: Appears unremarkable on the non-contrast CT. No splenomegaly. Adrenal glands: Normal. No mass. Kidneys and ureters: Appear unremarkable on the non-contrast CT. No hydronephrosis. Stomach and bowel: The noncontrast opacified stomach appears unremarkable. The noncontrast opacified loops of small bowel in the abdomen and pelvis appear unremarkable. The noncontrast opacified loops of colon in the abdomen and pelvis show some sigmoid colonic diverticulosis, without CT evidence of diverticulitis. The lack of orally administered contrast material limits bowel assessment. Appendix: Status post prior appendectomy. Intraperitoneal space: No free air. No significant fluid collection. Vasculature: No abdominal aortic aneurysm. Lymph nodes: No enlarged lymph nodes. Urinary bladder: Unremarkable as visualized. Reproductive: Status post prior hysterectomy. Bones/joints: No acute osseous abnormality seen. Small disc protrusion is seen at the L5-S1 level. Unchanged bilateral sacroiliac joint degenerative changes are seen with adjacent sclerosis. Sacroiliitis cannot be excluded. Soft tissues: There is diastasis of the rectus abdominus muscle seen. Small infraumbilical ventral hernia is seen, containing peritoneal fat. CT/CT abdomen pelvis wo con [id number] IMPRESSION: 1. No acute abnormality seen on the non-contrast abdominal and pelvic CT. 2. Some sigmoid colonic diverticula, without CT evidence of diverticulitis. 3. Status post cholecystectomy, hysterectomy and appendectomy.
[2022-04-04] MEDS: ipratropium-albuterol 3 mL Neb INHALATION (06:10)
[2022-04-04] MEDS: levofloxacin-dextrose 5 % 750 MG/150 ML PREMIX 100 MG IV (06:38)
[2022-04-04] MEDS: levalbuterol 0.63 mg/3 mL Neb INHALATION (07:53)
[2022-04-04 10:05] LABS: Adenovirus Not Detected (NOT DETECT); Chlamydia Pneumoniae Not Detected (NOT DETECT); Coronavirus 229E,HKU1,NL63,OC4 Not Detected (NOT DETECT); Human Metapneumovirus Not Detected (NOT DETECT); Human Rhinovirus/Enterovirus Not Detected (NOT DETECT); Influenza A Not Detected (NOT DETECT); Influenza A H1 Not Detected (NOT DETECT); Influenza A H1-2009 Not Detected (NOT DETECT); Influenza A H3 Not Detected (NOT DETECT); Influenza B Not Detected (NOT DETECT); Mycoplasma Pneumoniae Not Detected (NOT DETECT); Parainfluenza Virus Type 1 Not Detected (NOT DETECT); Parainfluenza Virus Type 2 Not Detected (NOT DETECT); Parainfluenza Virus Type 3 Not Detected (NOT DETECT); Parainfluenza Virus Type 4 Not Detected (NOT DETECT); Respiratory Syncytial Virus A Not Detected (NOT DETECT); Respiratory Syncytial Virus B Not Detected (NOT DETECT); SARS-COV-2 Not Detected (NOT DETECT)
== END 2022-04-04 08:47 | disposition home or self-care (01) ==
PROVIDERS: Emergency Medicine; Emergency Provider Family Medicine; PCP Registered Nurse
DX: J44.0 Chronic obstructive pulmonary disease with (acute) lower respiratory infection (principal); J18.9 Pneumonia, unspecified organism; J44.1 Chronic obstructive pulmonary disease with (acute) exacerbation; F17.210 Nicotine dependence, cigarettes, uncomplicated; Z20.822 Contact with and (suspected) exposure to COVID-19
CPT/HCPCS: 71045; 74176; 80053; 81001; 81025; 83690; 84145; 85025; 86140; 87040; 87081; 87426; 87635; 87804; 87880; 94640; 94760; 96365; 96375; 99285; J1956; J2270; J2930; J7030; J7614

== ENCOUNTER → 2022-05-02 08:36 | Outpatient (BNVA) | payer MEDICAID, SELFPAY | PROVIDERS: PCP Registered Nurse; Referring Provider Registered Nurse; Visit Provider Specialist | DX: G43.711 Chronic migraine without aura, intractable, with status migrainosus (principal); M06.9 Rheumatoid arthritis, unspecified; G37.9 Demyelinating disease of central nervous system, unspecified; F17.210 Nicotine dependence, cigarettes, uncomplicated | CPT/HCPCS: 99204 ==

== ENCOUNTER → 2022-05-17 11:36 | Outpatient (BNVA) | payer MEDICAID, SELFPAY | PROVIDERS: PCP Registered Nurse; Referring Provider Registered Nurse; Visit Provider Internal Medicine Rheumatology | DX: R76.8 Other specified abnormal immunological findings in serum (principal); Z79.899 Other long term (current) drug therapy; M19.90 Unspecified osteoarthritis, unspecified site; Z11.59 Encounter for screening for other viral diseases; M45.6 Ankylosing spondylitis lumbar region; Z71.85 Encounter for immunization safety counseling | CPT/HCPCS: 80076; 82565; 85025; 85651; 86140; 86160; 86162; 86200; 86235; 86255; 86376; 86480; 86704; 86803; 86812; 87340 ==

== ENCOUNTER 2022-07-05 03:02 | Emergency (ER) | payer MEDICAID, SELFPAY ==
--- NOTE | 2022-07-05 03:04 | XRR_ITS ---
PROCEDURE INFORMATION: Exam: XR Chest Exam date and time: 07/05/2022 3:14 AM Age: 32 years old Clinical indication: Pain; Shortness of breath; Chest pressure; Additional info: Cp TECHNIQUE: Imaging protocol: Radiologic exam of the chest. Views: 1 view. COMPARISON: CR XR chest 1V portable [id number] 04/04/2022 5:13 AM FINDINGS: Lungs: Normal lung volumes. Minimal accentuation of the right perihilar pulmonary vascularity is seen. No confluent interstitial airspace opacities in the lungs. Pleural spaces: No pleural effusion. No pneumothorax. Heart/Mediastinum: Mild prominence of the cardiac silhouette on this chest radiograph. Normal mediastinal contour. Midline trachea. Bones/joints: No acute abnormalities. Soft tissues: Multiple external densities are seen overlying the chest, limiting assessment. XR/XR chest 1V portable [id number] IMPRESSION: No confluent infiltrates in the lungs.
[2022-07-05 03:05] VITALS: BMI 51.6
[2022-07-05 03:08] VITALS: BP 163/111; PULSE 87; RESP 16; TEMP 36.6; O2SAT 99
--- NOTE | 2022-07-05 03:09 | ECG_ITS ---
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 Measurements Intervals [place] Rate: 85 P: 19 HI: 149 QRS: 71 QRSD: 92 T: 61 QT: 352 QTc: 419 Interpretive Statements SINUS RHYTHM Compared to ECG 01/06/2022 01:01:57 T-wave abnormality no longer present Electronically Signed On 07-05-2022 11:07:33 CDT by Pierre Atkins M.D. [id number] f
--- NOTE | 2022-07-05 03:10 | ED_ITS ---
HPI - Chest Pain General: Chief Complaint: Chest Pain Stated Complaint: cp Time Seen by Provider: 07/05/22 03:03 Source: patient Mode of arrival: ambulatory Limitations: no limitations History of Present Illness: 32-year-old female states that she been having chest pain over the last 2 hours states that sharp pain in the center of her chest states she is also had some shortness of breath the pain is also worse with deep inspiration. Patient denies any vomiting or diarrhea denies any fever denies any cough. She denies any radiation of her pain. Denies any abdominal pain. Associated symptoms: Reports dyspnea; Deny abdominal pain, fever(s), nausea or vomiting Review of Systems Const: Denies: fever(s), chills, body aches or change in appetite Eyes: Denies: blurry vision or eye discomfort ENMT: Denies: throat pain or dental pain Card: Reports: chest pain Resp: Reports: dyspnea GI: Denies: abdominal pain, nausea, vomiting or diarrhea : Denies: dysuria Musc: Denies: neck pain or back pain Skin/Breast: Denies: rash Neuro: Denies: headache(s) Psych: Denies: depression Ezekiel/Lymph: Denies: easy bruising All/Imm: Denies: urticaria PFSH ED PFSH: Medical History Anxiety Depression Epidermoid cyst of face surgically removed High risk medication use Immunization counseling Inflammatory arthritis No pertinent past medical history Positive LOKESH (antinuclear antibody) Stomach ulcer Surgical History H/O tubal ligation History of appendectomy History of delivery History of cholecystectomy History of hysterectomy History of tonsillectomy Family History Mother Colon cancer Diabetes Hyperlipidemia Hypertension Stroke Heart disease Father Diabetes Hypertension Thyroid disease Denies family history of Clotting disorder Chronic kidney disease (CKD) Bleeding disorder Social History Smoking and tobacco status: never smoked Quit status (tobacco): considering quitting Smoking risk assessment/counseling performed?: Yes Alcohol intake: never Caregiver/support person: Yes Lives independently: Yes History of recent travel: No Female Reproductive History: Date of last menstrual period: 02/12/21 Physical Exam Const: COMMON NORMALS: no acute distress, patient oriented x3 and healthy appearing HENMT: COMMON NORMALS: normocephalic and atraumatic HEAD & SCALP: normocephalic and atraumatic Eye: COMMON NORMALS: Equal, round and reactive pupils present and EOMs intact bilaterally PUPIL: Yes Equal, round and reactive pupils present Neck/C-Spine: COMMON NORMALS: full ROM and supple Chest: COMMONS NORMALS: normal inspection of the chest and normal palpation of entire chest wall Resp: COMMON NORMALS: normal respiratory effort, No retractions, No use of accessory muscles and clear to auscultation bilaterally AUSCULTATION: clear to auscultation bilaterally Cardio: COMMON NORMALS: regular rate, regular rhythm and No murmurs present (Cardio) RATE: regular rate RHYTHM: regular rhythm GI: COMMON NORMALS: Normal to inspection, nondistended, normoactive bowel sounds present, Soft to palpation, non-tender and no masses PALPATION: Yes Soft to palpation Extremity: COMMON NORMALS: normal to inspection and full ROM Neuro: COMMON NORMALS: patient oriented x3, moves all extremities and no focal motor deficits Psych: COMMON NORMALS: mental status grossly normal, Normal thought process present and cooperative THOUGHT PROCESS: Normal thought process present Skin: COMMON NORMALS: no rashes or lesions noted and no wounds GENERAL SKIN EXAM: no rashes or lesions noted Course Vital Signs: Vital signs: Vital Signs Temperature 97.8 F 07/05/22 03:16 Pulse Rate 87 07/05/22 03:16 Respiratory Rate 16 07/05/22 03:16 Blood Pressure 163/111 07/05/22 03:16 Pulse Oximetry 99 07/05/22 03:16 Oxygen Delivery Me thod 07/05/22 03:16 MDM - Chest Pain Medical Decision Making Patient presents with chest pain is atypical in nature her initial repeat heart enzyme is normal CTA of her chest showed no signs of pulmonary embolism or dissection she feels improved here she is stable for discharge she is to follow- up with PCP and return if worsening she understands agrees to plan. Lab Data : 07/05/22 03:09 07/05/22 03:09 Radiology Impressions Chest X-Ray 07/05/22 03:04 IMPRESSION: No confluent infiltrates in the lungs. Chest CTA 07/05/22 03:40 IMPRESSION: 1. No CTA evidence of pulmonary embolism, thoracic aortic aneurysm or thoracic aortic dissection. 2. Unremarkable CT appearance of the lungs. Laboratory Results WBC 15.0 10^3/uL (4.0-10.0) H 07/05/22 03:09 RBC 5.09 10^6/uL (4.1-5.3) 07/05/22 03:09 Hgb 16.1 g/dL (11.5-15.3) H 07/05/22 03:09 Hct 49.2 % (37.0-47.0) H 07/05/22 03:09 MCV 96.7 fl (81-99) 07/05/22 03:09 MCH 31.6 pg (28.0-34.0) 07/05/22 03:09 MCHC 32.7 g/dL (30.0-36.0) 07/05/22 03:09 RDW 12.7 % (12.1-15.1) 07/05/22 03:09 Plt Count 236 10^3/cmm (130-400) 07/05/22 03:09 MPV 10.3 fL (7.4-10.4) 07/05/22 03:09 Neut % (Auto) 59.2 % 07/05/22 03:09 Lymph % (Auto) 33.8 % 07/05/22 03:09 [place]cd[place] % (Auto) 4.7 % 07/05/22 03:09 Eos % (Auto) 1.3 % 07/05/22 03:09 Baso % (Auto) 0.3 % 07/05/22 03:09 Neut # (Auto) 8.90 10^3/uL (1.8-7.7) H 07/05/22 03:09 Lymph # (Auto) 5.1 10^3/uL (0.8-4.8) H 07/05/22 03:09 [place]cdonough # (Auto) 0.7 10^3/uL (0.2-0.9) 07/05/22 03:09 Eos # (Auto) 0.2 10^3/uL (0.0-0.8) 07/05/22 03:09 Baso # (Auto) 0.0 10^3/uL (0.0-0.1) 07/05/22 03:09 Nucleated RBC % (auto) 0 % 07/05/22 03:09 Nucleated RBCs # 0.0 /100WBC 07/05/22 03:09 D-Dimer 1.04 ug/mIFEU (0-0.59) H 07/05/22 03:09 Sodium 136 mmol/L (136-145) 07/05/22 03:09 Potassium 3.9 mmol/L (3.5-5.1) 07/05/22 03:09 Chloride 101 mmol/L (98-107) 07/05/22 03:09 Carbon Dioxide 25 mmol/L (22-29) 07/05/22 03:09 Anion Gap 13.9 (5-19) 07/05/22 03:09 BUN 11 mg/dL (6-20) 07/05/22 03:09 Creatinine 0.6 mg/dL (0.5-0.9) 07/05/22 03:09 GFR Calculation 114.4 mL/min (90-130) 07/05/22 03:09 Glucose 96 mg/dL (65-115) 07/05/22 03:09 Calculated Osmolality 281 mOsm/kg (285-295) L 07/05/22 03:09 Calcium 8.6 mg/dL (8.5-10.5) 07/05/22 03:09 Total Bilirubin 0.3 mg/dL (0.15-1.2) 07/05/22 03:09 AST 14 U/L (0-32) 07/05/22 03:09 ALT 22 U/L (0-33) 07/05/22 03:09 Alkaline Phosphatase 85 U/L (35-105) 07/05/22 03:09 Troponin T Baseline 7 ng/L (0-10) 07/05/22 03:09 Troponin T 120 Minute 12.85 ng/L (0-10) H 07/05/22 04:49 Delta Troponin T 5.85 ABS# (0-10) 07/05/22 04:49 Total Protein 7.4 g/dL (6.6-8.7) 07/05/22 03:09 Albumin 3.4 g/dL (3.5-5.2) L 07/05/22 03:09 Globulin 4.0 g/dL (1.3-4.6) 07/05/22 03:09 Lipase 25 U/L (13-60) 07/05/22 03:09 EKG Data EKG 1: I personally reviewed and interpreted this EKG as follows: EKG interpretation date: 07/05/22 EKG interpretation time: 03:09 Interpretation: nsr hr [address] or t wave abnormalities qrs 92 qtc 394 Discharge Plan Discharge Patient Disposition: Home Clinical Impression: Chest pain Condition: Stable Prescriptions: New hydrocodone-acetaminophen 5-325 mg tablet 1 tab PO Q6H PRN (Reason: pain) Qty: 14 0RF ondansetron 4 mg tablet,disintegrating 4 mg PO Q6H PRN (Reason: nausea and vomiting) Qty: 14 0RF No Action lisinopril 10 mg tablet 10 mg PO DAILY Humira 40 mg/0.8 mL syringe kit 40 mg SUBCUT .Q 7 DAYS acetaminophen [Tylenol] 325 mg tablet 325 mg PO QID PRN ibuprofen 200 mg tablet 200 mg PO Q6H PRN ascorbic acid (vitamin C) 500 mg capsule PO topiramate [Topamax] 100 mg tablet 100 mg PO DAILY Qty: 90 0RF methotrexate sodium 2.5 mg tablet See Rx Instructions PO .Q7days Qty: 30 3RF Rx Instructions: take 6 tabs on same day once a week PO .Q7days; folic acid 1 mg tablet 1 mg PO DAILY Qty: 30 3RF ondansetron 4 mg tablet,disintegrating 4 mg PO Q6H PRN (Reason: nausea and vomiting) Qty: 14 0RF albuterol sulfate 90 mcg/actuation HFA aerosol inhaler 2 inh inhalation Q4H PRN (Reason: shortness of breath or wheezing) Qty: 8.5 0RF Discharge Orders: Discharge ED (Routine); Ordered 07/05/22 Ordered By: Brian Pate Referrals: Janine Lambert FNP [Primary Care Provider] - 1-3 days Discharge Diet: Advance as tolerated Discharge Activity: Resume usual activity Patient Instructions: Chest Pain (ED) Coding Level of Care Code ED Broaching Machine Operator for Chg Fwd Exam Comprehensive
[2022-07-05 03:16] VITALS: BP 163/111; PULSE 87; RESP 16; TEMP 36.6; O2SAT 99
[2022-07-05 03:24] LABS: Basophils % 0.3 %; Eosinophils # 0.2 10^3/uL (0.0-0.8); Eosinophils % 1.3 %; Hematocrit 49.2 % (37.0-47.0); Hemoglobin 16.1 g/dL (11.5-15.3); Lymphocytes # 5.1 10^3/uL (0.8-4.8); Lymphocytes % 33.8 %; Mean Corpuscular HGB Conc 32.7 g/dL (30.0-36.0); Mean Corpuscular Hemoglobin 31.6 pg (28.0-34.0); Mean Corpuscular Volume 96.7 fl (81-99); Mean Platelet Volume 10.3 fL (7.4-10.4); Monocytes # 0.7 10^3/uL (0.2-0.9); Monocytes % 4.7 %; Neutrophils % 59.2 %; Nucleated Red Blood Cells % 0 %; Platelet Count 236 10^3/cmm (130-400); Red Blood Count 5.09 10^6/uL (4.1-5.3); Red Cell Distribution Width 12.7 % (12.1-15.1)
[2022-07-05] MEDS: ondansetron 2 mg/ML SDV 2 mL 4 MG IVP (03:31)
[2022-07-05] MEDS: HYDROmorphone 1 mg/mL INJ 1 mL 0.5 MG IVP ×2 (03:31→05:22)
[2022-07-05 03:36] LABS: D Dimer 1.04 ug/mIFEU (0-0.59)
--- NOTE | 2022-07-05 03:40 | CTR_ITS ---
PROCEDURE INFORMATION: Exam: CTA Chest With Contrast Exam date and time: 07/05/2022 4:03 AM Age: 32 years old Clinical indication: Pain; Shortness of breath; Chest pressure; Additional info: SOB TECHNIQUE: Imaging protocol: Computed tomographic angiography of the chest with contrast. 3D rendering (Not supervised by radiologist): MIP and/or 3D reconstructed images were created by the technologist. Radiation optimization: All CT scans at this facility use at least one of these dose optimization techniques: automated exposure control; mA and/or kV adjustment per patient size (includes targeted exams where dose is matched to clinical indication); or iterative reconstruction. Contrast material: OMNI 350; Contrast volume: 100 ml; Contrast route: INTRAVENOUS (IV); COMPARISON: CR (CHEST, ) 07/05/2022 3:14 AM RADIATION DOSE METRICS: Total DLP (mGy-cm): 550.02 FINDINGS: Pulmonary arteries: No CT evidence for segmental pulmonary emboli. The main pulmonary arteries and outflow trunk are unremarkable. Aorta: No thoracic aortic aneurysm. No thoracic aortic dissection. Trachea: The central airway is normal. Lungs: There are normal lung volumes. There is no CT evidence of interstitial lung disease. There is no consolidation. Pleural spaces: No pneumothorax. No pleural effusion. Heart: The heart size is within normal limits. The RV/LV ratio is normal (no CT evidence of RV strain). There is no pericardial effusion. No coronary arterial atherosclerotic vascular calcifications. Lymph nodes: No enlarged lymph nodes. Bones/joints: No acute osseous abnormalities. Soft tissues: Unremarkable. CT/CT angio chest PE protcl [id number] IMPRESSION: 1. No CTA evidence of pulmonary embolism, thoracic aortic aneurysm or thoracic aortic dissection. 2. Unremarkable CT appearance of the lungs.
[2022-07-05 03:44] LABS: Alanine Aminotransferase 22 U/L (0-33); Albumin Level 3.4 g/dL (3.5-5.2); Alkaline Phosphatase 85 U/L (35-105); Aspartate Amino Transferase 14 U/L (0-32); Blood Urea Nitrogen 11 mg/dL (6-20); Calcium 8.6 mg/dL (8.5-10.5); Carbon Dioxide 25 mmol/L (22-29); Chloride 101 mmol/L (98-107); Glomerular Filtration Rate 114.4 mL/min (90-130); Glucose 96 mg/dL (65-115); Osmolality Calculated 281 mOsm/kg (285-295); Sodium 136 mmol/L (136-145); Total Bilirubin 0.3 mg/dL (0.15-1.2); Total Protein 7.4 g/dL (6.6-8.7); Troponin(5th) Baseline 7 ng/L (0-10)
[2022-07-05 03:46] LABS: Anion Gap 13.9 (5-19); Potassium 3.9 mmol/L (3.5-5.1)
[2022-07-05] MEDS: iohexol 350 mg/mL 100 mL Btl IV (04:10)
--- NOTE | 2022-07-05 04:55 | ECG_ITS ---
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 Measurements Intervals [place] Rate: 78 P: 21 [place]: 150 QRS: 68 QRSD: 90 T: 75 QT: 371 QTc: 425 Interpretive Statements SINUS RHYTHM Compared to ECG 07/05/2022 03:09:07 No significant changes Electronically Signed On 07-05-2022 11:09:20 CDT by Pierre Atkins M.D. [email or web address] [email or web address] Roboticscle[facility].[employer]/store/OM/[id number]/[id number]
[2022-07-05 05:09] LABS: Troponin 5 2HR 12.85 ng/L (0-10)
[2022-07-05 05:12] LABS: Lipase 25 U/L (13-60)
[2022-07-05 05:14] LABS: Troponin 5 2HR Delta 5.85 ABS# (0-10)
[2022-07-05 05:28] VITALS: BP 142/98; PULSE 83; RESP 17; O2SAT 94
== END 2022-07-05 05:54 | disposition home or self-care (01) ==
PROVIDERS: Emergency Provider Emergency Medicine; PCP Registered Nurse
DX: R07.9 Chest pain, unspecified (principal)
CPT/HCPCS: 71045; 71275; 80053; 83690; 84484; 85025; 85378; 93005; 96374; 96375; 96376; 99285; J1170; J2405; Q9967

== ENCOUNTER 2022-08-21 03:48 | Emergency (ER) | payer MEDICAID, SELFPAY ==
--- NOTE | 2022-08-21 03:49 | XRR_ITS ---
PROCEDURE INFORMATION: Exam: XR Chest Exam date and time: 08/21/2022 3:57 AM Age: 32 years old Clinical indication: Shortness of breath; Left-sided; Prior surgery; Surgery type: Gb; Patient HX: C/O left sided chest pain with SOB. ; Additional info: Cp TECHNIQUE: Imaging protocol: Radiologic exam of the chest. Views: 1 view. COMPARISON: CR XR chest 1V portable [id number] 07/05/2022 3:14 AM FINDINGS: Lungs: No consolidation. Pleural spaces: Unremarkable. No pleural effusion. No pneumothorax. Heart/Mediastinum: No cardiomegaly. Bones/joints: No acute fracture. XR/XR chest 1V portable [id number] IMPRESSION: No acute findings.
--- NOTE | 2022-08-21 03:50 | ECG_ITS ---
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 Measurements Intervals [place] Rate: 79 P: 17 SD: 147 QRS: 62 QRSD: 90 T: 44 QT: 361 QTc: 414 Interpretive Statements SINUS RHYTHM NONSPECIFIC T-WAVE ABNORMALITY Compared to ECG 07/05/2022 04:55:03 T-wave abnormality now present Electronically Signed On 08-21-2022 12:56:18 INTEGRATED CAMPAIGN MANAGER by Shoshana Kennedy M.D. [email or web address] [email or web address]/store/[id number]
--- NOTE | 2022-08-21 03:53 | W.ED.CHESTPA ---
HPI - Chest Pain General: Chief Complaint: Chest Pain Stated Complaint: cp Time Seen by Provider: 08/21/22 03:50 Source: patient Mode of arrival: ambulatory Limitations: no limitations History of Present Illness: 32-year-old female who states that she woke up this morning with a sharp left-sided chest pain. States the pain is currently a 5 out of 10 is very sharp has been constant left-sided chest denies any shortness of breath patient denies any worsening improving factors. She states she has had pain like this before she was seen here 2 months ago and had a negative work-up for similar pain no history of coronary artery disease no recent trips no recent surgeries. Associated symptoms: Deny abdominal pain, dyspnea, fever(s), nausea or vomiting Review of Systems Const: Denies: fever(s), chills, body aches or change in appetite Eyes: Denies: blurry vision or eye discomfort ENMT: Denies: throat pain or dental pain Card: Reports: chest pain Resp: Denies: dyspnea GI: Denies: abdominal pain, nausea, vomiting or diarrhea : Denies: dysuria Musc: Denies: neck pain or back pain Skin/Breast: Denies: rash Neuro: Denies: headache(s) Psych: Denies: depression Ezekiel/Lymph: Denies: easy bruising All/Imm: Denies: urticaria PFSH ED PFSH: Medical History Anxiety Depression Epidermoid cyst of face surgically removed High risk medication use Immunization counseling Inflammatory arthritis No pertinent past medical history Positive LOKESH (antinuclear antibody) Stomach ulcer Surgical History H/O tubal ligation History of appendectomy History of delivery History of cholecystectomy History of hysterectomy History of tonsillectomy Family History Mother Colon cancer Diabetes Hyperlipidemia Hypertension Stroke Heart disease Father Diabetes Hypertension Thyroid disease Denies family history of Clotting disorder Chronic kidney disease (CKD) Bleeding disorder Social History Smoking and tobacco status: never smoked Quit status (tobacco): considering quitting Smoking risk assessment/counseling performed?: Yes Alcohol intake: never Caregiver/support person: Yes Lives independently: Yes History of recent travel: No Female Reproductive History: Date of last menstrual period: 02/12/21 Physical Exam Const: COMMON NORMALS: no acute distress, patient oriented x3 and healthy appearing HENMT: COMMON NORMALS: normocephalic and atraumatic HEAD & SCALP: normocephalic and atraumatic Eye: COMMON NORMALS: Equal, round and reactive pupils present and EOMs intact bilaterally PUPIL: Yes Equal, round and reactive pupils present Neck/C-Spine: COMMON NORMALS: full ROM and supple Chest: COMMONS NORMALS: normal inspection of the chest and normal palpation of entire chest wall Resp: COMMON NORMALS: normal respiratory effort, No retractions, No use of accessory muscles and clear to auscultation bilaterally AUSCULTATION: clear to auscultation bilaterally Cardio: COMMON NORMALS: regular rate, regular rhythm and No murmurs present (Cardio) RATE: regular rate RHYTHM: regular rhythm GI: COMMON NORMALS: Normal to inspection, nondistended, normoactive bowel sounds present, Soft to palpation, non-tender and no masses PALPATION: Yes Soft to palpation Extremity: COMMON NORMALS: normal to inspection and full ROM Neuro: COMMON NORMALS: patient oriented x3, moves all extremities and no focal motor deficits Psych: COMMON NORMALS: mental status grossly normal, Normal thought process present and cooperative THOUGHT PROCESS: Normal thought process present Skin: COMMON NORMALS: no rashes or lesions noted and no wounds GENERAL SKIN EXAM: no rashes or lesions noted Course Vital Signs: Vital signs: Vital Signs Temperature 98.3 F 08/21/22 03:56 Pulse Rate 79 08/21/22 05:00 Respiratory Rate 20 H 08/21/22 05:11 Blood Pressure 172/112 08/21/22 05:00 Pulse Oximetry 94 08/21/22 05:00 Oxygen Delivery Me thod 08/21/22 04:00 MDM - Chest Pain Medical Decision Making Patient presents with chest pains atypical in nature is likely muscular is worse with movement patient's blood work here is normal she did have high blood pressure here is improved we will start her on metoprolol along with her lisinopril we will place her on pain meds she is to follow-up with PCP in 2 to 4 days return if worsening she has no signs of dissection or pulmonary embolism patient did have a CT scan 2 months ago it was normal. Lab Data 08/21/22 04:00 08/21/22 04:00 Laboratory Results WBC 13.9 10^3/uL (4.0-10.0) H 08/21/22 04:00 RBC 4.91 10^6/uL (4.1-5.3) 08/21/22 04:00 Hgb 15.4 g/dL (11.5-15.3) H 08/21/22 04:00 Hct 47.3 % (37.0-47.0) H 08/21/22 04:00 MCV 96.3 fl (81-99) 08/21/22 04:00 MCH 31.4 pg (28.0-34.0) 08/21/22 04:00 MCHC 32.6 g/dL (30.0-36.0) 08/21/22 04:00 RDW 13.0 % (12.1-15.1) 08/21/22 04:00 Plt Count 212 10^3/cmm (130-400) 08/21/22 04:00 MPV 10.2 fL (7.4-10.4) 08/21/22 04:00 Neut % (Auto) 54.9 % 08/21/22 04:00 Lymph % (Auto) 37.7 % 08/21/22 04:00 [place] % (Auto) 4.9 % 08/21/22 04:00 Eos % (Auto) 1.8 % 08/21/22 04:00 Baso % (Auto) 0.3 % 08/21/22 04:00 Neut # (Auto) 7.64 10^3/uL (1.8-7.7) 08/21/22 04:00 Lymph # (Auto) 5.3 10^3/uL (0.8-4.8) H 08/21/22 04:00 [place] # (Auto) 0.7 10^3/uL (0.2-0.9) 08/21/22 04:00 Eos # (Auto) 0.3 10^3/uL (0.0-0.8) 08/21/22 04:00 Baso # (Auto) 0.0 10^3/uL (0.0-0.1) 08/21/22 04:00 Nucleated RBC % (auto) 0 % 08/21/22 04:00 Nucleated RBCs # 0.0 /100WBC 08/21/22 04:00 Sodium 136 mmol/L (136-145) 08/21/22 04:00 Potassium 3.8 mmol/L (3.5-5.1) 08/21/22 04:00 Chloride 101 mmol/L (98-107) 08/21/22 04:00 Carbon Dioxide 28 mmol/L (22-29) 08/21/22 04:00 Anion Gap 10.8 (5-19) 08/21/22 04:00 BUN 10 mg/dL (6-20) 08/21/22 04:00 Creatinine 0.7 mg/dL (0.5-0.9) 08/21/22 04:00 GFR Calculation 95.8 mL/min (90-130) 08/21/22 04:00 Glucose 98 mg/dL (65-115) 08/21/22 04:00 Calculated Osmolality 281 mOsm/kg (285-295) L 08/21/22 04:00 Calcium 8.5 mg/dL (8.5-10.5) 08/21/22 04:00 Total Bilirubin 0.3 mg/dL (0.15-1.2) 08/21/22 04:00 AST 14 U/L (0-32) 08/21/22 04:00 ALT 20 U/L (0-33) 08/21/22 04:00 Alkaline Phosphatase 82 U/L (35-105) 08/21/22 04:00 Troponin T Baseline 6 ng/L (0-10) 08/21/22 04:00 NT-Pro-B Natriuret Pep 32 pg/mL (0-125) 08/21/22 04:00 Total Protein 6.8 g/dL (6.6-8.7) 08/21/22 04:00 Albumin 3.4 g/dL (3.5-5.2) L 08/21/22 04:00 Globulin 3.4 g/dL (1.3-4.6) 08/21/22 04:00 Discharge Plan Discharge Patient Disposition: Home Clinical Impression: Chest pain, Hypertension Condition: Stable Prescriptions: New hydrocodone-acetaminophen 5-325 mg tablet 1 tab PO Q6H PRN (Reason: pain) Qty: 14 0RF metoprolol succinate 25 mg tablet extended release 24 hr 25 mg PO DAILY Qty: 30 0RF No Action lisinopril 10 mg tablet 10 mg PO DAILY Humira 40 mg/0.8 mL syringe kit 40 mg SUBCUT .Q 7 DAYS acetaminophen [Tylenol] 325 mg tablet 325 mg PO QID PRN ibuprofen 200 mg tablet 200 mg PO Q6H PRN ascorbic acid (vitamin C) 500 mg capsule PO topiramate [Topamax] 100 mg tablet 100 mg PO DAILY Qty: 90 0RF methotrexate sodium 2.5 mg tablet See Rx Instructions PO .Q7days Qty: 30 3RF Rx Instructions: take 6 tabs on same day once a week PO .Q7days; folic acid 1 mg tablet 1 mg PO DAILY Qty: 30 3RF ondansetron 4 mg tablet,disintegrating 4 mg PO Q6H PRN (Reason: nausea and vomiting) Qty: 14 0RF albuterol sulfate 90 mcg/actuation HFA aerosol inhaler 2 inh inhalation Q4H PRN (Reason: shortness of breath or wheezing) Qty: 8.5 0RF hydrocodone-acetaminophen 5-325 mg tablet 1 tab PO Q6H PRN (Reason: pain) Qty: 14 0RF ondansetron 4 mg tablet,disintegrating 4 mg PO Q6H PRN (Reason: nausea and vomiting) Qty: 14 0RF Discharge Orders: Discharge ED (Routine); Ordered 08/21/22 Ordered By: Brian Pate Referrals: Janine Lambert FNP [Primary Care Provider] - 1-3 days Discharge Diet: Advance as tolerated Discharge Activity: Resume usual activity Patient Instructions: Chest Pain (ED), Opioid Safety Coding Level of Care Code ED Water Service Supervisor for Chg Fwd Exam Comprehensive
[2022-08-21 03:56] VITALS: BP 193/118; PULSE 83; RESP 22; TEMP 36.8; O2SAT 95; BMI 51.3
[2022-08-21 04:00] VITALS: BP 173/105; PULSE 82; RESP 18; O2SAT 95
[2022-08-21 04:10] LABS: Basophils % 0.3 %; Eosinophils # 0.3 10^3/uL (0.0-0.8); Eosinophils % 1.8 %; Hematocrit 47.3 % (37.0-47.0); Hemoglobin 15.4 g/dL (11.5-15.3); Lymphocytes # 5.3 10^3/uL (0.8-4.8); Lymphocytes % 37.7 %; Mean Corpuscular HGB Conc 32.6 g/dL (30.0-36.0); Mean Corpuscular Hemoglobin 31.4 pg (28.0-34.0); Mean Corpuscular Volume 96.3 fl (81-99); Mean Platelet Volume 10.2 fL (7.4-10.4); Monocytes # 0.7 10^3/uL (0.2-0.9); Monocytes % 4.9 %; Neutrophils # 7.64 10^3/uL (1.8-7.7); Neutrophils % 54.9 %; Nucleated Red Blood Cells % 0 %; Platelet Count 212 10^3/cmm (130-400); Red Blood Count 4.91 10^6/uL (4.1-5.3); White Blood Count 13.9 10^3/uL (4.0-10.0)
[2022-08-21 04:11] VITALS: RESP 18
[2022-08-21] MEDS: ondansetron 2 mg/ML SDV 2 mL 4 MG IVP (04:11)
[2022-08-21] MEDS: morphine 4 mg/mL SDV 1 mL IVP (04:11)
[2022-08-21 04:31] LABS: Troponin(5th) Baseline 6 ng/L (0-10)
[2022-08-21 04:38] LABS: Alanine Aminotransferase 20 U/L (0-33); Albumin Level 3.4 g/dL (3.5-5.2); Alkaline Phosphatase 82 U/L (35-105); Anion Gap 10.8 (5-19); Aspartate Amino Transferase 14 U/L (0-32); Blood Urea Nitrogen 10 mg/dL (6-20); Calcium 8.5 mg/dL (8.5-10.5); Carbon Dioxide 28 mmol/L (22-29); Chloride 101 mmol/L (98-107); Globulin 3.4 g/dL (1.3-4.6); Glomerular Filtration Rate 95.8 mL/min (90-130); Glucose 98 mg/dL (65-115); NT Pro B Type Natriuretic Pept 32 pg/mL (0-125); Osmolality Calculated 281 mOsm/kg (285-295); Potassium 3.8 mmol/L (3.5-5.1); Sodium 136 mmol/L (136-145); Total Bilirubin 0.3 mg/dL (0.15-1.2); Total Protein 6.8 g/dL (6.6-8.7)
[2022-08-21] MEDS: hyDRALAzine 20 mg/mL INJ 1 mL 10 MG IVP (04:43)
[2022-08-21 05:00] VITALS: BP 172/112; PULSE 79; RESP 17; O2SAT 94
[2022-08-21 05:11] VITALS: RESP 20
[2022-08-21] MEDS: HYDROmorphone 1 mg/mL INJ 1 mL 0.5 MG IVP (05:11)
[2022-08-21] MEDS: labetalol 5 mg/mL SDV 20mL 10 MG IVP (05:12)
[2022-08-21 05:48] VITALS: BP 158/90; PULSE 78; RESP 22; O2SAT 93
== END 2022-08-21 05:55 | disposition home or self-care (01) ==
PROVIDERS: Emergency Provider Emergency Medicine; PCP Registered Nurse
DX: R07.9 Chest pain, unspecified (principal); I10 Essential (primary) hypertension
CPT/HCPCS: 71045; 80053; 83880; 84484; 85025; 93005; 96374; 96375; 99285; J0360; J1170; J2270; J2405; J3490

== ENCOUNTER 2022-10-01 19:32 | Emergency (ER) | payer OTHER, SELFPAY ==
[2022-10-01 19:50] VITALS: BP 148/78; PULSE 78; RESP 18; TEMP 36.3; O2SAT 100
--- NOTE | 2022-10-01 19:57 | XRR_ITS ---
PROCEDURE INFORMATION: Exam: XR Right Knee Exam date and time: 10/01/2022 8:11 PM Age: 32 years old Clinical indication: Injury or trauma; Fall; Work related; Sprain or strain; Patella or knee; Right; Additional info: Knee pain after falling when stepping out of truck TECHNIQUE: Imaging protocol: Radiologic exam of the Right knee. Views: 3 views. COMPARISON: No relevant prior studies available. FINDINGS: Bones/joints: A subtle fracture without significant depression is seen involving the lateral tibial plateau, best seen on the AP projection. Osseous structures and joint spaces appear unremarkable otherwise. Soft tissues: Suggestion of suprapatellar fullness or effusion. XR/XR knee RT 3V* [id number] IMPRESSION: Nondepressed fracture of the lateral tibial plateau of the right knee.
--- NOTE | 2022-10-01 20:15 | W.ED.EXTPRO ---
HPI - Extremity Problem General: Chief complaint: Extremity Injury, Lower Stated complaint: right knee injury Time Seen by Provider: 10/01/22 19:57 History of Present Illness: Patient is a 32-year-old female comes to the ED with right knee injury. Patient was at work and stepped out of her truck and fell injuring her right knee. Denies any other injury, head trauma or loss of consciousness. Patient says she twisted her knee when she stepped down which caused the injury. She is now having 9 out of 10 pain in her right knee and it hurts with any weightbearing or any movement of her right knee. Associated symptoms: Deny chest pain, fever(s) or rash Review of Systems Const: Denies: fever(s), chills or fatigue Eyes: Denies: change in vision or eye discomfort ENMT: Denies: throat pain, odynophagia, nasal discharge or nasal congestion Card: Denies: chest pain, palpitations, edema, swelling of feet/ankles, dyspnea on exertion or orthopnea Resp: Denies: dyspnea, productive cough or non-productive cough GI: Denies: abdominal pain, nausea, vomiting, diarrhea, constipation or hematochezia : Denies: flank pain, dysuria or hematuria Musc: Reports: extremity pain (Right knee pain); Denies: neck pain, back pain or extremity swelling Skin/Breast: Denies: rash or new lesions Neuro: Denies: headache(s), numbness in extremities or weakness in extremities [facility] ED PFSH: Medical History Anxiety Depression Epidermoid cyst of face surgically removed High risk medication use Immunization counseling Inflammatory arthritis No pertinent past medical history Positive LOKESH (antinuclear antibody) Stomach ulcer Surgical History H/O tubal ligation History of appendectomy History of delivery History of cholecystectomy History of hysterectomy History of tonsillectomy Family History Mother Colon cancer Diabetes Hyperlipidemia Hypertension Stroke Heart disease Father Diabetes Hypertension Thyroid disease Denies family history of Clotting disorder Chronic kidney disease (CKD) Bleeding disorder Social History Smoking and tobacco status: never smoked Quit status (tobacco): considering quitting Smoking risk assessment/counseling performed?: Yes Alcohol intake: never Caregiver/support person: Yes Lives independently: Yes History of recent travel: No Female Reproductive History: Date of last menstrual period: 02/12/21 Physical Exam Const: COMMON NORMALS: no acute distress, patient oriented x3 and alert GENERAL APPEARANCE: cooperative HENMT: COMMON NORMALS: normocephalic HEAD & SCALP: normocephalic MOUTH: Normal oral and palatal mucosa present THROAT: posterior oropharynx normal and uvula midline Neck/C-Spine: COMMON NORMALS: supple GENERAL: Yes normal visual inspection Resp: COMMON NORMALS: normal respiratory effort, No retractions, No use of accessory muscles and clear to auscultation bilaterally AUSCULTATION: clear to auscultation bilaterally Cardio: COMMON NORMALS: regular rate, regular rhythm, S1 normal heart sound present, S2 normal heart sound present, No gallops present (Cardio), No clicks present (Cardio), No murmurs present (Cardio) and Peripheral pulses 2+ throughout RATE: regular rate RHYTHM: regular rhythm HEART SOUNDS: S1 normal heart sound present and S2 normal heart sound present PERIPHERAL PULSES: Peripheral pulses 2+ throughout GI: COMMON NORMALS: Normal to inspection, nondistended, normoactive bowel sounds present, Soft to palpation, non-tender and no masses PALPATION: Yes Soft to palpation : COMMON NORMALS: Yes no CVA tenderness BLADDER/KIDNEY EXAM: Yes no CVA tenderness Back/Pelvis: COMMON NORMALS: no CVA tenderness Extremity: NARRATIVE EXTREMITY EXAM: Right knee?no erythema, warmth or swelling noted. Mild tenderness throughout knee. Limited range of motion due to pain. Neurovascular tact distally. Neuro: COMMON NORMALS: patient oriented x3 SENSORIUM/ORIENTATION: Yes alert GAIT: Yes Normal gait present Skin: GENERAL SKIN EXAM: dry skin Course Vital Signs: Vital signs: Vital Signs Temperature 97.4 F L 10/01/22 19:50 Pulse Rate 78 10/01/22 19:50 Respiratory Rate 18 10/01/22 19:50 Blood Pressure 148/78 10/01/22 19:50 Pulse Oximetry 100 10/01/22 19:50 Oxygen Delivery Me thod 10/01/22 19:50 MDM - Extremity (Nontraumatic) Medical Decision Making Patient is a 32-year-old female comes to the ED with right knee injury. Patient was at work and stepped out of her truck and fell injuring her right knee. Denies any other injury, head trauma or loss of consciousness. Patient says she twisted her knee when she stepped down which caused the injury. She is now having 9 out of 10 pain in her right knee and it hurts with any weightbearing or any movement of her right knee. Vitals are stable.Right knee?no erythema, warmth or swelling noted. Mild tenderness throughout knee. Limited range of motion due to pain. Neurovascular tact distally. Patient was initially diagnosed with a knee sprain and discharged home with crutches before x-ray report was complete. Right knee x-ray did show a nondepressed fracture of the lateral tibial plateau of the right knee. Patient was notified to come to the ED in the morning to get long leg posterior splint placed. She was told to continue using crutches to help with ambulation no weightbearing until cleared by Ortho. I placed order with case management for patient to be referred to Ortho for follow-up. She was discharged home with a prescription for hydrocodone to help with pain. Patient understood and agreed with plan. Lab Data Radiology Impressions Knee X-Ray 10/01/22 19:57 IMPRESSION: Nondepressed fracture of the lateral tibial plateau of the right knee. Discharge Plan Discharge Patient Disposition: Home Clinical Impression: Closed fracture of tibial plateau Qualifiers: Encounter type: initial encounter Laterality: right Qualified Code(s): S82.141A - Displaced bicondylar fracture of right tibia, initial encounter for closed fracture Condition: Stable Prescriptions: No Action lisinopril 10 mg tablet 10 mg PO DAILY Humira 40 mg/0.8 mL syringe kit 40 mg SUBCUT .Q 7 DAYS acetaminophen [Tylenol] 325 mg tablet 325 mg PO QID PRN ibuprofen 200 mg tablet 200 mg PO Q6H PRN ascorbic acid (vitamin C) 500 mg capsule PO topiramate [Topamax] 100 mg tablet 100 mg PO DAILY Qty: 90 0RF methotrexate sodium 2.5 mg tablet See Rx Instructions PO .Q7days Qty: 30 3RF Rx Instructions: take 6 tabs on same day once a week PO .Q7days; folic acid 1 mg tablet 1 mg PO DAILY Qty: 30 3RF ondansetron 4 mg tablet,disintegrating 4 mg PO Q6H PRN (Reason: nausea and vomiting) Qty: 14 0RF albuterol sulfate 90 mcg/actuation HFA aerosol inhaler 2 inh inhalation Q4H PRN (Reason: shortness of breath or wheezing) Qty: 8.5 0RF hydrocodone-acetaminophen 5-325 mg tablet 1 tab PO Q6H PRN (Reason: pain) Qty: 14 0RF metoprolol succinate 25 mg tablet extended release 24 hr 25 mg PO DAILY Qty: 30 0RF hydrocodone-acetaminophen 5-325 mg tablet 1 tab PO Q6H PRN (Reason: pain) Qty: 14 0RF ondansetron 4 mg tablet,disintegrating 4 mg PO Q6H PRN (Reason: nausea and vomiting) Qty: 14 0RF Discharge Orders: Discharge ED (Routine); Ordered 10/01/22 Ordered By: Ben Saravia Referrals: Janine Lambert FNP [Primary Care Provider] - Discharge Diet: Regular Discharge Activity: Limit activity as instructed and Use walker/crutches as instructed Patient Instructions: Opioid Safety Activity Restrictions/Additional Instructions: Follow-up with medical provider as directed in the next 5 to 7 days for reevaluation. Rest, ice and elevate right knee. Take medications as prescribed. Use crutches and limit weightbearing for the next 2 to 3 days and slowly advance weightbearing as tolerated. Return to the ER or your medical provider if condition worsens. Please read and understand discharge instructions. Thank you for choosing [facility] for your healthcare needs today. Please realize this is an emergency room and that we are providing you with a medical screening exam and this may not be complete and all inclusive of all the testing and or work up that you may need to determine your ailment or severity of your illness. It is very important that you follow up as instructed or that you return to the Emergency Department should you have concerns or if your condition changes or worsens in any way. Coding Level of Care Code ED Maintenance Service Dispatcher for Jessica Cassidy Exam Comprehensive
[2022-10-01] MEDS: HYDROcodone-acetaminophen 7.5-325 mg Tablet 1 TAB PO (20:54)
[2022-10-01] MEDS: HYDROcodone-acetaminophen 5-325 mg Tablet 1 TAB PO (21:35)
--- NOTE | 2022-10-02 07:43 | PC.NURSE ---
contacted pt about fracture, asked to return to ED for splint. pt advised would come back this am.
== END 2022-10-01 21:38 | disposition home or self-care (01) ==
PROVIDERS: Emergency Provider Physician Assistant; PCP Registered Nurse
DX: S82.141A Displaced bicondylar fracture of right tibia, initial encounter for closed fracture (principal); W17.89XA Other fall from one level to another, initial encounter
CPT/HCPCS: 29505; 73562; 97760; 99283; E0114

== ENCOUNTER 2022-10-02 08:49 | Emergency (ER) | payer OTHER, SELFPAY ==
[2022-10-02 08:52] VITALS: BP 133/85; PULSE 90; RESP 18; TEMP 36.8; O2SAT 98; BMI 51.6
--- NOTE | 2022-10-02 10:21 | W.ED.EXTPRO ---
HPI - Extremity Problem General: Chief complaint: Extremity Injury, Lower Stated complaint: back for knee injury Time Seen by Provider: 10/02/22 08:51 Source: patient Mode of arrival: ambulatory History of Present Illness: 32-year-old female presents emergency room for knee injury. She was seen last night and discharged with a thought that was a knee sprain. Radiology felt that there was a tibial plateau fracture she she was contacted to return. She returns today continuing to have discomfort. She had not filled her pain medications overnight. MD Complaint: extremity pain Onset (ago): day(s) Pain Consistency: constant Location: right and knee Quality: sharp Radiation: distal Relieving factors: rest Exacerbating factors: range of motion, weight bearing, walking and palpation Associated symptoms: Deny arthralgias, chest pain, fever(s), myalgias, rash or short of breath Review of Systems Const: Denies: fever(s) or chills ENMT: Denies: throat pain, ear or mastoid pain, nasal discharge or nasal congestion Card: Denies: chest pain Resp: Denies: dyspnea, productive cough or non-productive cough GI: Denies: abdominal pain, nausea, vomiting, hematemesis, coffee ground emesis, diarrhea, constipation, bloating, hematochezia or melena : Denies: flank pain, difficulty voiding, dysuria, urinary frequency or urinary urgency Skin/Breast: Denies: rash PFSH ED PFSH: Medical History Anxiety Depression Epidermoid cyst of face surgically removed High risk medication use Immunization counseling Inflammatory arthritis No pertinent past medical history Positive LOKESH (antinuclear antibody) Stomach ulcer Surgical History H/O tubal ligation History of appendectomy History of delivery History of cholecystectomy History of hysterectomy History of tonsillectomy Family History Mother Colon cancer Diabetes Hyperlipidemia Hypertension Stroke Heart disease Father Diabetes Hypertension Thyroid disease Denies family history of Clotting disorder Chronic kidney disease (CKD) Bleeding disorder Social History Smoking and tobacco status: never smoked Quit status (tobacco): considering quitting Smoking risk assessment/counseling performed?: Yes Alcohol intake: never Caregiver/support person: Yes Lives independently: Yes History of recent travel: No Female Reproductive History: Date of last menstrual period: 02/12/21 Physical Exam Const: GENERAL APPEARANCE: cooperative and comfortable ORIENTATION/CONSCIOUSNESS: Yes awake HENMT: COMMON NORMALS: normocephalic, atraumatic and hearing grossly normal bilaterally HEAD & SCALP: normocephalic and atraumatic Resp: COMMON NORMALS: normal respiratory effort, No retractions, No use of accessory muscles and clear to auscultation bilaterally AUSCULTATION: clear to auscultation bilaterally Cardio: COMMON NORMALS: regular rate, regular rhythm and No murmurs present (Cardio) RATE: regular rate RHYTHM: regular rhythm Extremity: COMMON NORMALS: normal to inspection, capillary refill normal, no clubbing, cyanosis or edema, no calf tenderness and no pedal edema Skin: COMMON NORMALS: no rashes or lesions noted GENERAL SKIN EXAM: no rashes or lesions noted Course Vital Signs: Vital signs: Vital Signs Temperature 98.2 F 10/02/22 08:52 Pulse Rate 77 10/02/22 10:43 Respiratory Rate 16 10/02/22 10:43 Blood Pressure 146/88 10/02/22 10:43 Pulse Oximetry 96 10/02/22 10:43 MDM - Extremity (Nontraumatic) Medical Decision Making Nonweightbearing. Patient was placed in a knee immobilizer due to body habitus we did have good to get extended from PT to make an immobilizer functional. We will have her nonweightbearing on crutches and refer her to orthopedics. She has an appointment Dr. Medellin tomorrow Medical Records I reviewed the patient's medical records. Lab Data I reviewed the patient's lab results. Discharge Plan Discharge Patient Disposition: Home Clinical Impression: Closed fracture of tibial plateau Condition: Stable Prescriptions: New hydrocodone-acetaminophen 5-325 mg tablet 1 tab PO Q6H PRN (Reason: pain) Qty: 25 0RF No Action lisinopril 10 mg tablet 10 mg PO DAILY Humira 40 mg/0.8 mL syringe kit 40 mg SUBCUT .Q 7 DAYS acetaminophen [Tylenol] 325 mg tablet 325 mg PO QID PRN ibuprofen 200 mg tablet 200 mg PO Q6H PRN ascorbic acid (vitamin C) 500 mg capsule PO topiramate [Topamax] 100 mg tablet 100 mg PO DAILY Qty: 90 0RF methotrexate sodium 2.5 mg tablet See Rx Instructions PO .Q7days Qty: 30 3RF Rx Instructions: take 6 tabs on same day once a week PO .Q7days; folic acid 1 mg tablet 1 mg PO DAILY Qty: 30 3RF ondansetron 4 mg tablet,disintegrating 4 mg PO Q6H PRN (Reason: nausea and vomiting) Qty: 14 0RF albuterol sulfate 90 mcg/actuation HFA aerosol inhaler 2 inh inhalation Q4H PRN (Reason: shortness of breath or wheezing) Qty: 8.5 0RF hydrocodone-acetaminophen 5-325 mg tablet 1 tab PO Q6H PRN (Reason: pain) Qty: 14 0RF metoprolol succinate 25 mg tablet extended release 24 hr 25 mg PO DAILY Qty: 30 0RF hydrocodone-acetaminophen 5-325 mg tablet 1 tab PO Q6H PRN (Reason: pain) Qty: 14 0RF ondansetron 4 mg tablet,disintegrating 4 mg PO Q6H PRN (Reason: nausea and vomiting) Qty: 14 0RF Discharge Orders: Discharge ED (Routine); Ordered 10/02/22 Ordered By: Raghu Mcleod Referrals: Janine Lambert FNP [Primary Care Provider] - Patient Instructions: Opioid Safety, Pain Management Activity Restrictions/Additional Instructions: You were seen today for tibial plateau fracture. Its important that you do not bear any weight on your right leg. Leave the splint in place and use the crutches. You have an appointment for 3:[address] Medellin. Coding Level of Care Code ED Fun House Operator for Jessica Cassidy
--- NOTE | 2022-10-02 10:37 | DCPLANNER ---
Addendum entered by Suma Ward 10/19/22 14:24: Patient had a follow up appointment scheduled with ortho - patient did attend appointment. Original Note: manager medical affairs was asked to schedule a follow up appointment for patient with ortho. manager medical affairs called the ortho clinic, gave clinic patients information. A follow up appointment was scheduled for Monday, October 03, 2022 at 3:[address] New. manager medical affairs informed ER physician about patients appointment.
[2022-10-02 10:43] VITALS: BP 146/88; PULSE 77; RESP 16; O2SAT 96
== END 2022-10-02 10:44 | disposition home or self-care (01) ==
PROVIDERS: Emergency Provider Family Medicine; PCP Registered Nurse
DX: S82.144A Nondisplaced bicondylar fracture of right tibia, initial encounter for closed fracture (principal); X58.XXXA Exposure to other specified factors, initial encounter
CPT/HCPCS: 29530; 99283

== ENCOUNTER → 2022-10-03 15:56 | Outpatient (BNVA) | payer OTHER, SELFPAY | PROVIDERS: PCP Registered Nurse; Referring Provider Physician Assistant; Visit Provider Specialist | DX: S82.141A Displaced bicondylar fracture of right tibia, initial encounter for closed fracture (principal); X50.9XXA Other and unspecified overexertion or strenuous movements or postures, initial encounter; Y99.0 Civilian activity done for income or pay; E66.01 Morbid (severe) obesity due to excess calories; Z68.43 Body mass index [BMI] 50.0-59.9, adult | CPT/HCPCS: 73562 ==

== ENCOUNTER 2022-10-03 16:46 | Outpatient (CLI) | payer OTHER, SELFPAY | END 2022-10-03 16:47 | disposition home or self-care (01) | LOC: SPT 16:46 | PROVIDERS: PCP Registered Nurse; Visit Provider Specialist | DX: Z46.89 Encounter for fitting and adjustment of other specified devices (principal); S82.141D Displaced bicondylar fracture of right tibia, subsequent encounter for closed fracture with routine healing; X58.XXXD Exposure to other specified factors, subsequent encounter | CPT/HCPCS: 97760; L1832 ==

== ENCOUNTER 2022-11-03 11:39 | Outpatient (CLI) | payer OTHER, SELFPAY ==
--- NOTE | 2022-11-03 11:55 | XRR_ITS ---
PROCEDURE INFORMATION: Exam: XR Right Knee Exam date and time: 11/03/2022 11:56 AM Age: 32 years old Clinical indication: Injury or trauma; Fall; Blunt trauma; Knee; Right; Additional info: Fracture TECHNIQUE: Imaging protocol: Radiologic exam of the Right knee. Views: 3 views. COMPARISON: CR (LOW EXM, ) 10/01/2022 8:11 PM FINDINGS: Bones/joints: Cortical defect the is seen in the lateral tibial plateau consistent with nondisplaced fracture. This finding is somewhat subtle but was present on prior examination. Sclerotic densities are seen in the lateral tibial metaphysis which may reflect interval healing. This finding was also present on prior examination. No additional bony abnormalities seen. Soft tissues: Normal. XR/XR knee RT 3V* [id number] IMPRESSION: 1. Healing nondisplaced fracture lateral tibial plateau 2. Otherwise negative examination
== END 2022-11-03 11:40 | disposition home or self-care (01) ==
PROVIDERS: PCP Registered Nurse; Visit Provider Family Medicine
DX: S82.144A Nondisplaced bicondylar fracture of right tibia, initial encounter for closed fracture (principal); X58.XXXA Exposure to other specified factors, initial encounter
CPT/HCPCS: 73562

== ENCOUNTER 2022-11-12 16:25 | Outpatient (CLI) | payer OTHER, SELFPAY ==
--- NOTE | 2022-11-12 16:36 | XR_ITS ---
WS: [id number] Right knee, 2 views, 11/12/2022 Clinical Data: RIGHT KNEE INJURY, CLOSED FRACTURE OF RIGHT TIBIAL PLATEAU Comparison: Right knee, 11/03/2022 Findings: The fracture of the lateral tibial plateau is still visible. There is no depression. The medial tibia l plateaus intact. The soft tissues are normal. XR/XR knee RT 1-2V [id number] Impression: Healing fracture of lateral tibial plateau of right knee.
== END 2022-11-12 16:26 | disposition home or self-care (01) ==
LOC: RAD 16:26
PROVIDERS: PCP Registered Nurse; Visit Provider Family Medicine
DX: S82.141D Displaced bicondylar fracture of right tibia, subsequent encounter for closed fracture with routine healing (principal); X58.XXXD Exposure to other specified factors, subsequent encounter
CPT/HCPCS: 73560

== ENCOUNTER 2022-11-26 16:06 | Outpatient (CLI) | payer OTHER, SELFPAY ==
--- NOTE | 2022-11-26 16:46 | XR_ITS ---
WS: [id number] XR knee RT 3V* [id number] REASON FOR EXAM: RIGHT KNEE INJURY FINDINGS: Small joint effusion. On the AP view, ill-defined area of sclerosis extending across the proximal subarticular metaphysis o f the lateral femoral condyle. Normal subcortical white line of the lateral tibial condyle not visual ized. Possible vertical fracture line adjacent to the lateral tibial eminence. On the lateral, there also appears to be a buckling of the posterior lateral femoral and a depressed articular segment of t he posterior lateral femoral condyle. The medial and lateral joint spaces are intact and relatively well-preserved Patella and patellofemoral femoral joint space intact. XR/XR knee RT 3V* [id number] IMPRESSION: Depressed lateral tibial plateau fracture which appears to involve a significan t portion of the lateral tibial plateau.
== END 2022-11-26 16:07 | disposition home or self-care (01) ==
PROVIDERS: PCP Family Medicine; Visit Provider Family Medicine
DX: S89.91XD Unspecified injury of right lower leg, subsequent encounter (principal); S82.141K Displaced bicondylar fracture of right tibia, subsequent encounter for closed fracture with nonunion; X58.XXXD Exposure to other specified factors, subsequent encounter
CPT/HCPCS: 73562

== ENCOUNTER 2022-12-07 12:26 | Emergency (ER) | payer MEDICAID, SELFPAY ==
[2022-12-07 12:33] VITALS: BP 149/92; PULSE 76; RESP 18; TEMP 36.5; O2SAT 98; BMI 49.8
--- NOTE | 2022-12-07 12:40 | ECG_ITS ---
[facility] Test Date: 2022-12-07 Pat Name: Ivy Duque Department: Room: Gender: Female Director Of Instructional Technology: : 1990 Requested By: Raghu Fletcher Order Number: [id number] Lorena MD: Danna Kemp M.D. Measurements Intervals [place] Rate: 77 P: 18 NM: 137 QRS: 55 QRSD: 92 T: 62 QT: 363 QTc: 413 Interpretive Statements SINUS RHYTHM Compared to ECG 08/21/2022 04:01:26 T-wave abnormality no longer present Electronically Signed On 12-07-2022 23:02:24 CDT by Danna Kemp M.D. [email or web address]
--- NOTE | 2022-12-07 14:45 | ED_ITS ---
HPI - Chest Pain General: Chief Complaint: Chest Pain Stated Complaint: Chest Pain, with pressure, N/V Time Seen by Provider: 12/07/22 14:30 Source: patient Mode of arrival: ambulatory History of Present Illness: 32-year-old female presents emergency room complaining of chest pain and nausea and vomiting. Chest pain is worse when she coughs or takes a deep breath. She had a productive cough for the last 2 weeks intermittently some small amounts of blood of had been noted. No fever sweats chills she has had been having some diarrhea but did not initially. MD complaint: chest pain Timing of current episode: episodic Onset: other (With cough and inspiration) Pain radiation: none Severity: mild Quality: sharp Relieving factors: nothing Exacerbating factors: nothing Associated symptoms: Deny abdominal pain, diaphoresis, dyspnea, fever(s), leg edema, nausea, palpitations, sense of impending doom, syncope or vomiting Treatment prior to arrival: none Review of Systems Const: Denies: fever(s), chills or diaphoresis ENMT: Denies: throat pain, ear or mastoid pain, nasal discharge or nasal congestion Card: Denies: chest pain, palpitations or syncope Resp: Denies: dyspnea GI: Denies: abdominal pain, nausea or vomiting : Denies: flank pain, difficulty voiding, dysuria, urinary frequency or urinary urgency Skin/Breast: Denies: rash or pruritus PFSH ED PFSH: Medical History Anxiety Depression Epidermoid cyst of face surgically removed High risk medication use Immunization counseling Inflammatory arthritis No pertinent past medical history Positive LOKESH (antinuclear antibody) Stomach ulcer Surgical History H/O tubal ligation History of appendectomy History of delivery History of cholecystectomy History of hysterectomy History of tonsillectomy Family History Mother Colon cancer Diabetes Hyperlipidemia Hypertension Stroke Heart disease Father Diabetes Hypertension Thyroid disease Denies family history of Clotting disorder Chronic kidney disease (CKD) Bleeding disorder Social History Smoking and tobacco status: never smoked Quit status (tobacco): considering quitting Smoking risk assessment/counseling performed?: Yes Alcohol intake: never Caregiver/support person: Yes Lives independently: Yes Physical Exam Const: GENERAL APPEARANCE: cooperative and comfortable ORIENTATION/CONSCIOUSNESS: Yes awake, Yes oriented to person, Yes oriented to place and Yes oriented to time HENMT: COMMON NORMALS: normocephalic, atraumatic and hearing grossly normal bilaterally HEAD & SCALP: normocephalic and atraumatic Resp: COMMON NORMALS: normal respiratory effort, No retractions, No use of accessory muscles and clear to auscultation bilaterally AUSCULTATION: clear to auscultation bilaterally Cardio: COMMON NORMALS: regular rate, regular rhythm and No murmurs present (Cardio) RATE: regular rate RHYTHM: regular rhythm GI: COMMON NORMALS: Soft to palpation and No hepatosplenomegaly present AUSCULTATION: Yes normoactive bowel sounds PALPATION: Yes Soft to palpation, No Tenderness to palpation present (GI), No Guarding due to palpation present (GI) and Yes No hepatosplenomegaly present Extremity: COMMON NORMALS: normal to inspection, capillary refill normal, no clubbing, cyanosis or edema, no calf tenderness and no pedal edema Neuro: SENSORIUM/ORIENTATION: Yes oriented to person, Yes oriented to place and Yes oriented to time Skin: COMMON NORMALS: no rashes or lesions noted GENERAL SKIN EXAM: no rashes or lesions noted Course Vital Signs: Vital signs: Vital Signs Temperature 97.7 F 12/07/22 12:33 Pulse Rate 73 12/07/22 17:12 Respiratory Rate 19 H 12/07/22 16:00 Blood Pressure 178/102 12/07/22 17:12 Pulse Oximetry 96 12/07/22 17:12 Oxygen Delivery Wa thod 12/07/22 12:33 MDM - Chest Pain Medical Decision Making Labs and imaging reviewed no significant findings made EKG unremarkable. Chest pain reproducible with deep inspiration and cough. Discharge patient home on doxycycline 100 twice daily for 5 days also prednisone taper Motrin or Tylenol as needed and albuterol as needed recheck with primary care if not improving Medical Records I reviewed the patient's medical records. Lab Data I reviewed the patient's lab results. 12/07/22 14:45 12/07/22 14:45 Radiology Impressions Chest X-Ray 12/07/22 15:43 IMPRESSION: Unremarkable frontal portable chest x-ray. Laboratory Results WBC 12.6 10^3/uL (4.0-10.0) H 12/07/22 14:45 RBC 4.99 10^6/uL (4.1-5.3) 12/07/22 14:45 Hgb 15.4 g/dL (11.5-15.3) H 12/07/22 14:45 Hct 47.7 % (37.0-47.0) H 12/07/22 14:45 MCV 95.6 fl (81-99) 12/07/22 14:45 MCH 30.9 pg (28.0-34.0) 12/07/22 14:45 MCHC 32.3 g/dL (30.0-36.0) 12/07/22 14:45 RDW 12.9 % (12.1-15.1) 12/07/22 14:45 Plt Count 224 10^3/cmm (130-400) 12/07/22 14:45 MPV 10.5 fL (7.4-10.4) H 12/07/22 14:45 Neut % (Auto) 55.5 % 12/07/22 14:45 Lymph % (Auto) 37.1 % 12/07/22 14:45 [place] % (Auto) 5.1 % 12/07/22 14:45 Eos % (Auto) 1.8 % 12/07/22 14:45 Baso % (Auto) 0.2 % 12/07/22 14:45 Neut # (Auto) 6.98 10^3/uL (1.8-7.7) 12/07/22 14:45 Lymph # (Auto) 4.7 10^3/uL (0.8-4.8) 12/07/22 14:45 [place] # (Auto) 0.6 10^3/uL (0.2-0.9) 12/07/22 14:45 Eos # (Auto) 0.2 10^3/uL (0.0-0.8) 12/07/22 14:45 Baso # (Auto) 0.0 10^3/uL (0.0-0.1) 12/07/22 14:45 Nucleated RBC % (auto) 0 % 12/07/22 14:45 Nucleated RBCs # 0.0 /100WBC 12/07/22 14:45 Sodium 137 mmol/L (136-145) 12/07/22 14:45 Potassium 4.1 mmol/L (3.5-5.1) 12/07/22 14:45 Chloride 103 mmol/L (98-107) 12/07/22 14:45 Carbon Dioxide 27 mmol/L (22-29) 12/07/22 14:45 Anion Gap 11.1 (5-19) 12/07/22 14:45 BUN 10 mg/dL (6-20) 12/07/22 14:45 Creatinine 0.6 mg/dL (0.5-0.9) 12/07/22 14:45 GFR Calculation 114.4 mL/min (90-130) 12/07/22 14:45 Glucose 80 mg/dL (65-115) 12/07/22 14:45 Calculated Osmolality 282 mOsm/kg (285-295) L 12/07/22 14:45 Calcium 8.6 mg/dL (8.5-10.5) 12/07/22 14:45 Total Bilirubin 0.4 mg/dL (0.15-1.2) 12/07/22 14:45 AST 20 U/L (0-32) 12/07/22 14:45 ALT 26 U/L (0-33) 12/07/22 14:45 Alkaline Phosphatase 80 U/L (35-105) 12/07/22 14:45 Total Protein 7.1 g/dL (6.6-8.7) 12/07/22 14:45 Albumin 3.4 g/dL (3.5-5.2) L 12/07/22 14:45 Globulin 3.7 g/dL (1.3-4.6) 12/07/22 14:45 Urine Color Yellow (Yellow) 12/07/22 14:18 Urine Appearance Hazy (CLEAR) A 12/07/22 14:18 Urine pH 6.5 (5-7) 12/07/22 14:18 Ur Specific [place] 1.015 (1.005-1.030) 12/07/22 14:18 Urine Protein Neg (Negative) 12/07/22 14:18 Urine Glucose (UA) Norm (Normal) 12/07/22 14:18 Urine Ketones Negative (Negative) 12/07/22 14:18 Urine Blood 2+ (Negative) H 12/07/22 14:18 Urine Nitrate Negative (Negative) 12/07/22 14:18 Urine Bilirubin Neg (Negative) 12/07/22 14:18 Urine Urobilinogen Norm mg/dL (Negative) 12/07/22 14:18 Ur Leukocyte Esterase Negative (Negative) 12/07/22 14:18 Urine RBC 0-4 /hpf (0-2) H 12/07/22 14:18 Urine WBC Rare /hpf (0-5) 12/07/22 14:18 Ur Squamous Epith Cells 0-4 /hpf (0-5) H 12/07/22 14:18 Amorphous Sediment Not Reportable 12/07/22 14:18 Urine Bacteria Trace /hpf (NONE) 12/07/22 14:18 Discharge Plan Discharge Patient Disposition: Home Clinical Impression: Bronchitis, Acute chest wall pain Condition: Stable Prescriptions: New doxycycline hyclate 100 mg capsule 100 mg PO BID 10 Days Qty: 20 0RF Medrol (Akhil) 4 mg tablets,dose pack See Rx Instructions .ROUTE .COMPLEX Qty: 21 0RF Rx Instructions: orally per package directions albuterol sulfate 90 mcg/actuation HFA aerosol inhaler 2 inh INHALATION Q4H PRN (Reason: shortness of breath or wheezing) Qty: 18 0RF No Action lisinopril 10 mg tablet 10 mg PO DAILY Humira 40 mg/0.8 mL syringe kit 40 mg SUBCUT .Q 7 DAYS acetaminophen [Tylenol] 325 mg tablet 325 mg PO QID PRN ibuprofen 200 mg tablet 200 mg PO Q6H PRN ascorbic acid (vitamin C) 500 mg capsule PO topiramate [Topamax] 100 mg tablet 100 mg PO DAILY Qty: 90 0RF methotrexate sodium 2.5 mg tablet See Rx Instructions PO .Q7days Qty: 30 3RF Rx Instructions: take 6 tabs on same day once a week PO .Q7days; folic acid 1 mg tablet 1 mg PO DAILY Qty: 30 3RF (DME) ISABELA See Rx Instructions .Route .MEDSUPPLY Qty: 1 0RF Rx Instructions: As directed (DME) platform walker See Rx Instructions .Route .MEDSUPPLY Qty: 1 0RF Rx Instructions: As directed ondansetron 4 mg tablet,disintegrating 4 mg PO Q6H PRN (Reason: nausea and vomiting) Qty: 14 0RF albuterol sulfate 90 mcg/actuation HFA aerosol inhaler 2 inh inhalation Q4H PRN (Reason: shortness of breath or wheezing) Qty: 8.5 0RF hydrocodone-acetaminophen 5-325 mg tablet 1 tab PO Q6H PRN (Reason: pain) Qty: 14 0RF metoprolol succinate 25 mg tablet extended release 24 hr 25 mg PO DAILY Qty: 30 0RF hydrocodone-acetaminophen 5-325 mg tablet 1 tab PO Q6H PRN (Reason: pain) Qty: 14 0RF ondansetron 4 mg tablet,disintegrating 4 mg PO Q6H PRN (Reason: nausea and vomiting) Qty: 14 0RF hydrocodone-acetaminophen 5-325 mg tablet 1 tab PO Q6H PRN (Reason: pain) Qty: 25 0RF Discharge Orders: Discharge ED (Routine); Ordered 12/07/22 Ordered By: Raghu Mcleod Referrals: Briana Dumas, [Primary Care Provider] - Discharge Diet: Usual diet Discharge Activity: Resume usual activity Patient Instructions: Opioid Safety, Pain Management Activity Restrictions/Additional Instructions: You were seen in the emergency room for chest pain. Chest pain appears to musculoskeletal negative. At the chest x-ray was unremarkable. We will start you on oral antibiotics for the productive cough you have had for 2 weeks as well as a steroid taper and albuterol as needed follow-up with your primary care doctor if not improving Coding Level of Care Code ED Production Team Advisor for Jessica Cassidy
[2022-12-07 15:07] VITALS: BP 143/100; PULSE 66; RESP 23; O2SAT 96
--- NOTE | 2022-12-07 15:43 | XR_ITS ---
WS: [id number] EXAMINATION: XR chest 1V portable [id number] REASON FOR EXAM: dyspnea/cough COMPARISON: 08/21/2022 ORDER DATE: 12/07/2022 3:43 PM TECHNIQUE: A single, portable frontal chest x-ray was obtained. X-RAY FINDINGS: The lungs are clear. Pleural spaces are clear. No pleural effusions or pneumothorax. Cardiomediastinal silhouette is normal. No evidence for pulmonary edema. Soft tissue and osseous structures are unremarkable. No tubes or lines are present. XR/XR chest 1V portable [id number] IMPRESSION: Unremarkable frontal portable chest x-ray.
[2022-12-07] MEDS: acetaminophen 500 mg Tablet 1000 MG PO (15:53)
[2022-12-07 16:00] VITALS: BP 148/102; PULSE 73; RESP 19; O2SAT 96
[2022-12-07 16:04] LABS: Basophils % 0.2 %; Eosinophils # 0.2 10^3/uL (0.0-0.8); Eosinophils % 1.8 %; Hematocrit 47.7 % (37.0-47.0); Hemoglobin 15.4 g/dL (11.5-15.3); Lymphocytes # 4.7 10^3/uL (0.8-4.8); Lymphocytes % 37.1 %; Mean Corpuscular HGB Conc 32.3 g/dL (30.0-36.0); Mean Corpuscular Hemoglobin 30.9 pg (28.0-34.0); Mean Corpuscular Volume 95.6 fl (81-99); Mean Platelet Volume 10.5 fL (7.4-10.4); Monocytes # 0.6 10^3/uL (0.2-0.9); Monocytes % 5.1 %; Neutrophils # 6.98 10^3/uL (1.8-7.7); Neutrophils % 55.5 %; Nucleated Red Blood Cells % 0 %; Platelet Count 224 10^3/cmm (130-400); Red Blood Count 4.99 10^6/uL (4.1-5.3); Red Cell Distribution Width 12.9 % (12.1-15.1); White Blood Count 12.6 10^3/uL (4.0-10.0)
[2022-12-07 16:14] LABS: Add Urine Microscopic? YES; Bilirubin Urine Neg (Negative); Blood Urine 2+ (Negative); Glucose Urine UA Norm (Normal); Ketones Urine Negative (Negative); Leukocyte Esterase Urine Negative (Negative); Nitrate Urine Negative (Negative); Protein Urine Neg (Negative); Specific Gravity, Urine 1.015 (1.005-1.030); Urine Appearance Hazy (CLEAR); Urine Color Yellow (Yellow); Urobilinogen Urine Norm (Negative); pH Urine 6.5 (5-7)
[2022-12-07 16:15] LABS: Bacteria Urine TRACE /hpf; RBC Urine 0-4 /hpf (0-2); Squamous Epithelial Cell Urine 0-4 /hpf (0-5); WBC Urine RARE /hpf (0-5)
[2022-12-07 16:17] LABS: Alanine Aminotransferase 26 U/L (0-33); Albumin Level 3.4 g/dL (3.5-5.2); Alkaline Phosphatase 80 U/L (35-105); Anion Gap 11.1 (5-19); Aspartate Amino Transferase 20 U/L (0-32); Blood Urea Nitrogen 10 mg/dL (6-20); Calcium 8.6 mg/dL (8.5-10.5); Carbon Dioxide 27 mmol/L (22-29); Chloride 103 mmol/L (98-107); Globulin 3.7 g/dL (1.3-4.6); Glomerular Filtration Rate 114.4 mL/min (90-130); Glucose 80 mg/dL (65-115); Osmolality Calculated 282 mOsm/kg (285-295); Potassium 4.1 mmol/L (3.5-5.1); Sodium 137 mmol/L (136-145); Total Bilirubin 0.4 mg/dL (0.15-1.2); Total Protein 7.1 g/dL (6.6-8.7)
--- NOTE | 2022-12-07 16:18 | PC.NURSE ---
PT PLACED ON CONTINUOUS NIBP, SPO2, AND CM
[2022-12-07 16:38] LABS: Slide Review Slide Review Perform
[2022-12-07 17:12] VITALS: BP 178/102; PULSE 73; O2SAT 96
== END 2022-12-07 17:13 | disposition home or self-care (01) ==
PROVIDERS: Emergency Provider Family Medicine; PCP Family Medicine
DX: J40 Bronchitis, not specified as acute or chronic (principal)
CPT/HCPCS: 71045; 80053; 81001; 85025; 93005; 96374; 99285; J2930

== ENCOUNTER 2022-12-17 15:13 | Emergency (ER) | payer MEDICAID, SELFPAY ==
[2022-12-17 15:33] VITALS: BP 151/91; PULSE 86; RESP 20; TEMP 36.8; O2SAT 99; BMI 56.5
[2022-12-17 16:21] LABS: Basophils % 0.2 %; Eosinophils # 0.2 10^3/uL (0.0-0.8); Eosinophils % 1.8 %; Hematocrit 45.2 % (37.0-47.0); Hemoglobin 15.1 g/dL (11.5-15.3); Lymphocytes # 4.5 10^3/uL (0.8-4.8); Lymphocytes % 34.8 %; Mean Corpuscular HGB Conc 33.4 g/dL (30.0-36.0); Mean Corpuscular Hemoglobin 31.6 pg (28.0-34.0); Mean Corpuscular Volume 94.6 fl (81-99); Mean Platelet Volume 10.2 fL (7.4-10.4); Monocytes # 0.6 10^3/uL (0.2-0.9); Monocytes % 4.9 %; Neutrophils # 7.54 10^3/uL (1.8-7.7); Nucleated Red Blood Cells % 0 %; Platelet Count 212 10^3/cmm (130-400); Red Blood Count 4.78 10^6/uL (4.1-5.3); Red Cell Distribution Width 13.1 % (12.1-15.1)
[2022-12-17 16:42] LABS: Alanine Aminotransferase 19 U/L (0-33); Albumin Level 3.4 g/dL (3.5-5.2); Alkaline Phosphatase 77 U/L (35-105); Anion Gap 10.8 (5-19); Aspartate Amino Transferase 14 U/L (0-32); Blood Urea Nitrogen 12 mg/dL (6-20); Calcium 8.5 mg/dL (8.5-10.5); Carbon Dioxide 25 mmol/L (22-29); Chloride 103 mmol/L (98-107); Globulin 2.8 g/dL (1.3-4.6); Glomerular Filtration Rate 82.1 mL/min (90-130); Glucose 103 mg/dL (65-115); Lipase 18 U/L (13-60); Osmolality Calculated 280 mOsm/kg (285-295); Potassium 3.8 mmol/L (3.5-5.1); Sodium 135 mmol/L (136-145); Total Bilirubin 0.2 mg/dL (0.15-1.2); Total Protein 6.2 g/dL (6.6-8.7)
[2022-12-17 16:50] LABS: Slide Review Slide Review Perform
[2022-12-17 18:51] LABS: HCG Qualitative Urine. Negative (Negative)
[2022-12-17 19:35] LABS: Add Urine Microscopic? YES; Bilirubin Urine Neg (Negative); Blood Urine 2+ (Negative); Glucose Urine UA Norm (Normal); Ketones Urine 1+ (Negative); Leukocyte Esterase Urine Negative (Negative); Nitrate Urine Negative (Negative); Protein Urine Neg (Negative); Urine Appearance Hazy (CLEAR); Urine Color Yellow (Yellow); Urobilinogen Urine 1 mg/dL (Negative); pH Urine 6 (5-7)
[2022-12-17 19:36] LABS: Add Urine Culture? No; Bacteria Urine TRACE /hpf; Calcium Oxalate Crystals Urine 55-80 /hpf; RBC Urine RARE /hpf (0-2); Squamous Epithelial Cell Urine 0-4 /hpf (0-5); WBC Urine RARE /hpf (0-5)
--- NOTE | 2022-12-17 19:40 | PC.NURSE ---
called pt to take her to a room. no answer in waiting room
== END 2022-12-17 20:20 | disposition left against medical advice (07) ==
PROVIDERS: Emergency Provider Family Medicine; PCP Family Medicine
DX: Z53.21 Procedure and treatment not carried out due to patient leaving prior to being seen by health care provider (principal)
CPT/HCPCS: 36415; 80053; 81001; 81025; 83690; 85025; 99283

== ENCOUNTER 2022-12-18 10:13 | Emergency (ER) | payer MEDICAID, SELFPAY ==
[2022-12-18] VITALS (8 sets, daily range): BP systolic 114–166; BP diastolic 59–105; PULSE 71–88; RESP 16–18; TEMP 36.5; O2SAT 96–99; BMI 56.0
[2022-12-18 10:56] LABS: Basophils % 0.2 %; Eosinophils # 0.2 10^3/uL (0.0-0.8); Eosinophils % 1.3 %; Hematocrit 47.5 % (37.0-47.0); Hemoglobin 15.8 g/dL (11.5-15.3); Lymphocytes # 3.3 10^3/uL (0.8-4.8); Lymphocytes % 25.8 %; Mean Corpuscular HGB Conc 33.3 g/dL (30.0-36.0); Mean Corpuscular Hemoglobin 31.7 pg (28.0-34.0); Mean Corpuscular Volume 95.4 fl (81-99); Mean Platelet Volume 10.1 fL (7.4-10.4); Monocytes # 0.6 10^3/uL (0.2-0.9); Monocytes % 4.3 %; Neutrophils # 8.76 10^3/uL (1.8-7.7); Neutrophils % 68.1 %; Nucleated Red Blood Cells % 0 %; Platelet Count 217 10^3/cmm (130-400); Red Blood Count 4.98 10^6/uL (4.1-5.3); White Blood Count 12.9 10^3/uL (4.0-10.0)
[2022-12-18 11:12] LABS: Alanine Aminotransferase 19 U/L (0-33); Albumin Level 3.3 g/dL (3.5-5.2); Alkaline Phosphatase 84 U/L (35-105); Anion Gap 13.1 (5-19); Aspartate Amino Transferase 14 U/L (0-32); Blood Urea Nitrogen 9 mg/dL (6-20); Calcium 8.2 mg/dL (8.5-10.5); Carbon Dioxide 24 mmol/L (22-29); Chloride 102 mmol/L (98-107); Globulin 3.5 g/dL (1.3-4.6); Glomerular Filtration Rate 95.8 mL/min (90-130); Glucose 109 mg/dL (65-115); HCG, Serum Qual Negative (Negative); Lipase 14 U/L (13-60); Osmolality Calculated 279 mOsm/kg (285-295); Potassium 4.1 mmol/L (3.5-5.1); Sodium 135 mmol/L (136-145); Total Bilirubin 0.4 mg/dL (0.15-1.2); Total Protein 6.8 g/dL (6.6-8.7)
--- NOTE | 2022-12-18 11:24 | CT_ITS ---
WS: [id number] CT ABDOMEN AND PELVIS NONCONTRAST HISTORY: right flank pain with hematuria TECHNIQUE: Imaging performed through the abdomen and pelvis. Coronal and sagittal reformats are submi tted. All CT scans at [facility] use at least one of these dose optimization techniques: auto mated exposure control; mA and/or kV adjustment per patient size (includes targeted exams where dose is matched to clinical indication); or iterative reconstruction. DLP: 1384.53 mGy.cm COMPARISON: 04/04/2022 Lower thorax: Lung bases are clear. Visualized heart is normal. No hiatal hernia. Liver: Mild hepatomegaly and hepatic steatosis. No bile duct dilatation or mass. Gallbladder: Prior cholecystectomy. No bile duct dilatation. Pancreas: Normal size and attenuation. Normal pancreatic duct. No pancreatitis or mass. Spleen: Normal. Adrenal glands: Normal RIGHT adrenal gland. Mild nodularity of the LEFT adrenal gland is stable. Right kidney: Normal size kidney with no mass or hydronephrosis. Left kidney: Normal size kidney with no mass or hydronephrosis. Aorta: Normal abdominal aorta, no aneurysm or atherosclerosis. No free fluid, intraperitoneal air or significant lymphadenopathy. GI tract: Normal noncontrast imaging of the stomach, small bowel and colon. No obstruction or wall th ickening. Prior appendectomy. Abdominal wall: Small umbilical hernia contains fat only. Pelvis: Lobulated mass with septations in the LEFT adnexa measures 6.3 x 5.0 cm. Prior hysterectomy. Osseous structures: Unremarkable. CT/CT kidney stone [id number] IMPRESSION: 1. No renal obstruction or calcifications identified. 2. Hepatic steatosis and hepatomegaly, mild. 3. Prior cholecystectomy, appendectomy and hysterectomy. 4. New LEFT adnexal heterogeneous mass measures 6.3 x 5.0 cm. Ovarian neoplasm needs to be excluded. Recommend follow-up transvaginal pelvic ultrasound.
--- NOTE | 2022-12-18 11:26 | ED_ITS ---
HPI - Abdominal Pain General: Chief Complaint: Abdominal Pain Stated Complaint: kidney pain Time Seen by Provider: 12/18/22 10:36 History of Present Illness: Patient is a 32-year-old female comes to the ED with right flank pain. Symptoms started yesterday. She came to the ED yesterd ay December 17 but left without being seen. She states that last night she was having worsening right flank pain, nausea and vomiting. Pain is rated a 7.5 out of 10 and pain located in front right pelvis and radiates into her right lower back and into the left pelvis. Endorses have reviewed dysuria and hematuria. Denies any past kidney stones. Denies any fevers or bowel complaints. Associated Symptoms: Reports dysuria, hematuria, nausea and vomiting; Denies chills, constipation, diarrhea, fever(s) and hematochezia Review of Systems Const: Denies: fever(s), chills or fatigue Eyes: Denies: change in vision or eye discomfort ENMT: Denies: throat pain, odynophagia, nasal discharge or nasal congestion Card: Denies: chest pain, palpitations, edema, swelling of feet/ankles, dyspnea on exertion or orthopnea Resp: Denies: dyspnea, productive cough or non-productive cough GI: Reports: nausea and vomiting; Denies: abdominal pain, diarrhea, constipation or hematochezia : Reports: flank pain (Right flank), dysuria, hematuria and pelvic pain (Right and left pelvic pain) Musc: Denies: neck pain, back pain or extremity swelling Skin/Breast: Denies: rash or new lesions Neuro: Denies: headache(s), numbness in extremities or weakness in extremities PFS ED PFSH: Medical History Anxiety Depression Epidermoid cyst of face surgically removed High risk medication use Immunization counseling Inflammatory arthritis No pertinent past medical history Positive LOKESH (antinuclear antibody) Stomach ulcer Surgical History H/O tubal ligation History of appendectomy History of delivery History of cholecystectomy History of hysterectomy History of tonsillectomy Family History Mother Colon cancer Diabetes Hyperlipidemia Hypertension Stroke Heart disease Father Diabetes Hypertension Thyroid disease Denies family history of Clotting disorder Chronic kidney disease (CKD) Bleeding disorder Social History Smoking and tobacco status: never smoked Quit status (tobacco): considering quitting Smoking risk assessment/counseling performed?: Yes Alcohol intake: never Caregiver/support person: Yes Lives independently: Yes Physical Exam Const: COMMON NORMALS: patient oriented x3, healthy appearing and alert HENMT: COMMON NORMALS: normocephalic HEAD & SCALP: normocephalic MOUTH: Normal oral and palatal mucosa present THROAT: posterior oropharynx normal and uvula midline Neck/C-Spine: COMMON NORMALS: supple GENERAL: Yes normal visual inspection Resp: COMMON NORMALS: normal respiratory effort, No retractions, No use of accessory muscles and clear to auscultation bilaterally AUSCULTATION: clear to auscultation bilaterally Cardio: COMMON NORMALS: regular rate, regular rhythm, S1 normal heart sound present, S2 normal heart sound present, No gallops present (Cardio), No clicks present (Cardio), No murmurs present (Cardio) and Peripheral pulses 2+ th roughout RATE: regular rate RHYTHM: regular rhythm HEART SOUNDS: S1 normal heart sound present and S2 normal heart sound present PERIPHERAL PULSES: Peripheral pulses 2+ throughout GI: COMMON NORMALS: Normal to inspection, nondistended, normoactive bowel sounds present, Soft to palpation and no masses PALPATION: Yes Soft to palpation OTHER: Tenderness over the right and left pelvic region : BLADDER/KIDNEY EXAM: Yes CVA tenderness on the right Back/Pelvis: GENERAL BACK: Yes CVA tenderness Extremity: COMMON NORMALS: normal to inspection Neuro: COMMON NORMALS: patient oriented x3 SENSORIUM/ORIENTATION: Yes alert GAIT: Yes Normal gait present Skin: GENERAL SKIN EXAM: dry skin Course Vital Signs: Vital signs: Vital Signs Temperature 97.7 F 12/18/22 10:18 Pulse Rate 80 12/18/22 15:21 Respiratory Rate 18 12/18/22 13:43 Blood Pressure 119/79 12/18/22 15:21 Pulse Oximetry 99 12/18/22 15:21 Oxygen Delivery Me thod 12/18/22 14:26 MDM - Abdominal Pain Medical Decision Making Patient is a 32-year-old female comes to the ED with right flank pain. Symptoms started yesterday. She came to the ED yesterday December 17 but left without being seen. She states that last night she was having worsening right flank pain, nausea and vomiting. Pain is rated a 7.5 out of 10 and pain located in front right pelvis and radiates into her right lower back and into the left pelvis. Endorses have reviewed dysuria and hematuria. Denies any past kidney stones. Denies any fevers or bowel complaints. Vitals are stable. Patient appears nontoxic in no acute distress. She has some right CVA tenderness and right and left pelvic tenderness. Rest of exam is benign. Patient's labs are unremarkable. UA shows a little bit of blood. CT abdomen pelvis shows no acute findings but notes a large left ovarian mass. Ultrasound was performed for more detailed look at left ovarian mass and its noted to be a left adnexal mass likely hemorrhagic cyst. She was stable for discharge home and diagnosed with left hemorrhagic ovarian cyst. 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 Return to ED precautions given. Patient was DC'd home with a prescription for couple hydrocodone to help with acute pain. Patient understood and agreed with plan. Lab Data I reviewed the patient's lab results. 12/18/22 10:48 12/18/22 10:48 Labs/Radiology: Radiology Impressions Abdomen/Pelvis CT 12/18/22 11:24 IMPRESSION: 1. No renal obstruction or calcifications identified. 2. Hepatic steatosis and hepatomegaly, mild. 3. Prior cholecystectomy, appendectomy and hysterectomy. 4. New LEFT adnexal heterogeneous mass measures 6.3 x 5.0 cm. Ovarian neoplasm needs to be excluded. Recommend follow-up transvaginal pelvic ultrasound. Transvaginal US 12/18/22 13:34 IMPRESSION: 1. LEFT adnexal mass measures 5.9 x 6.1 x 5.2 cm. 2. Favor this is probably a hemorrhagic cyst with retracting clot involving the LEFT ovary. Due to its size and complex appearance recommend follow-up in 4-6 weeks to ensure there is no additional underlying mass which is obscured by the retracting clot. Laboratory Results WBC 12.9 10^3/uL (4.0-10.0) H 12/18/22 10:48 RBC 4.98 10^6/uL (4.1-5.3) 12/18/22 10:48 Hgb 15.8 g/dL (11.5-15.3) H 12/18/22 10:48 Hct 47.5 % (37.0-47.0) H 12/18/22 10:48 MCV 95.4 fl (81-99) 12/18/22 10:48 MCH 31.7 pg (28.0-34.0) 12/18/22 10:48 MCHC 33.3 g/dL (30.0-36.0) 12/18/22 10:48 RDW 13.0 % (12.1-15.1) 12/18/22 10:48 Plt Count 217 10^3/cmm (130-400) 12/18/22 10:48 MPV 10.1 fL (7.4-10.4) 12/18/22 10:48 Neut % (Auto) 68.1 % 12/18/22 10:48 Lymph % (Auto) 25.8 % 12/18/22 10:48 [place] % (Auto) 4.3 % 12/18/22 10:48 Eos % (Auto) 1.3 % 12/18/22 10:48 Baso % (Auto) 0.2 % 12/18/22 10:48 Neut # (Auto) 8.76 10^3/uL (1.8-7.7) H 12/18/22 10:48 Lymph # (Auto) 3.3 10^3/uL (0.8-4.8) 12/18/22 10:48 [place] # (Auto) 0.6 10^3/uL (0.2-0.9) 12/18/22 10:48 Eos # (Auto) 0.2 10^3/uL (0.0-0.8) 12/18/22 10:48 Baso # (Auto) 0.0 10^3/uL (0.0-0.1) 12/18/22 10:48 Nucleated RBC % (auto) 0 % 12/18/22 10:48 Nucleated RBCs # 0.0 /100WBC 12/18/22 10:48 Sodium 135 mmol/L (136-145) L 12/18/22 10:48 Potassium 4.1 mmol/L (3.5-5.1) 12/18/22 10:48 Chloride 102 mmol/L (98-107) 12/18/22 10:48 Carbon Dioxide 24 mmol/L (22-29) 12/18/22 10:48 Anion Gap 13.1 (5-19) 12/18/22 10:48 BUN 9 mg/dL (6-20) 12/18/22 10:48 Creatinine 0.7 mg/dL (0.5-0.9) 12/18/22 10:48 GFR Calculation 95.8 mL/min (90-130) 12/18/22 10:48 Glucose 109 mg/dL (65-115) 12/18/22 10:48 Calculated Osmolality 279 mOsm/kg (285-295) L 12/18/22 10:48 Calcium 8.2 mg/dL (8.5-10.5) L 12/18/22 10:48 Total Bilirubin 0.4 mg/dL (0.15-1.2) 12/18/22 10:48 AST 14 U/L (0-32) 12/18/22 10:48 ALT 19 U/L (0-33) 12/18/22 10:48 Alkaline Phosphatase 84 U/L (35-105) 12/18/22 10:48 Total Protein 6.8 g/dL (6.6-8.7) 12/18/22 10:48 Albumin 3.3 g/dL (3.5-5.2) L 12/18/22 10:48 Globulin 3.5 g/dL (1.3-4.6) 12/18/22 10:48 Lipase 14 U/L (13-60) 12/18/22 10:48 HCG, Qual Negative (Negative) 12/18/22 10:48 Urine Color Yellow (Yellow) 12/18/22 11:20 Urine Appearance Hazy (CLEAR) A 12/18/22 11:20 Urine pH 7 (5-7) 12/18/22 11:20 Ur Specific [place] 1.015 (1.005-1.030) 12/18/22 11:20 Urine Protein Neg (Negative) 12/18/22 11:20 Urine Glucose (UA) Norm (Normal) 12/18/22 11:20 Urine Ketones Negative (Negative) 12/18/22 11:20 Urine Blood 2+ (Negative) H 12/18/22 11:20 Urine Nitrate Negative (Negative) 12/18/22 11:20 Urine Bilirubin Neg (Negative) 12/18/22 11:20 Urine Urobilinogen 1 mg/dL (Negative) H 12/18/22 11:20 Ur Leukocyte Esterase Negative (Negative) 12/18/22 11:20 Urine RBC 0-4 /hpf (0-2) H 12/18/22 11:20 Urine WBC None /hpf (0-5) 12/18/22 11:20 Ur Squamous Epith Cells 10-15 /hpf (0-5) H 12/18/22 11:20 Amorphous Sediment Not Reportable 12/18/22 11:20 Urine Bacteria Trace /hpf (NONE) 12/18/22 11:20 Discharge Plan Discharge Patient Disposition: Home Clinical Impression: Hemorrhagic cyst of left ovary, Hemorrhagic ovarian cyst Condition: Stable Prescriptions: No Action lisinopril 10 mg tablet 10 mg PO DAILY Humira 40 mg/0.8 mL syringe kit 40 mg SUBCUT .Q 7 DAYS acetaminophen [Tylenol] 325 mg tablet 325 mg PO QID PRN ibuprofen 200 mg tablet 200 mg PO Q6H PRN ascorbic acid (vitamin C) 500 mg capsule PO topiramate [Topamax] 100 mg tablet 100 mg PO DAILY Qty: 90 0RF methotrexate sodium 2.5 mg tablet See Rx Instructions PO .Q7days Qty: 30 3RF Rx Instructions: take 6 tabs on same day once a week PO .Q7days; folic acid 1 mg tablet 1 mg PO DAILY Qty: 30 3RF (DME) ISABELA See Rx Instructions .Route .MEDSUPPLY Qty: 1 0RF Rx Instructions: As directed (DME) platform walker See Rx Instructions .Route .MEDSUPPLY Qty: 1 0RF Rx Instructions: As directed ondansetron 4 mg tablet,disintegrating 4 mg PO Q6H PRN (Reason: nausea and vomiting) Qty: 14 0RF albuterol sulfate 90 mcg/actuation HFA aerosol inhaler 2 inh inhalation Q4H PRN (Reason: shortness of breath or wheezing) Qty: 8.5 0RF hydrocodone-acetaminophen 5-325 mg tablet 1 tab PO Q6H PRN (Reason: pain) Qty: 14 0RF metoprolol succinate 25 mg tablet extended release 24 hr 25 mg PO DAILY Qty: 30 0RF Medrol (Akhil) 4 mg tablets,dose pack See Rx Instructions .ROUTE .COMPLEX Qty: 21 0RF Rx Instructions: orally per package directions albuterol sulfate 90 mcg/actuation HFA aerosol inhaler 2 inh INHALATION Q4H PRN (Reason: shortness of breath or wheezing) Qty: 18 0RF hydrocodone-acetaminophen 5-325 mg tablet 1 tab PO Q6H PRN (Reason: pain) Qty: 14 0RF ondansetron 4 mg tablet,disintegrating 4 mg PO Q6H PRN (Reason: nausea and vomiting) Qty: 14 0RF hydrocodone-acetaminophen 5-325 mg tablet 1 tab PO Q6H PRN (Reason: pain) Qty: 25 0RF Discharge Orders: Discharge ED (Routine); Ordered 12/18/22 Ordered By: Ben Saravia Referrals: Briana Dumas DO [Primary Care Provider] - Discharge Diet: Regular Discharge Activity: Increase activity as tolerated Patient Instructions: Ovarian Cyst (ED), Opioid Safety Activity Restrictions/Additional Instructions: Follow-up with medical provider as directed in the next 7 to 10 days for reevaluation and have repeat ultrasound done in 4 to 6 weeks to see if cyst resolves. Take medications as prescribed. Return to the ER or your medical provider if condition worsens. Please read and understand discharge instructions. Thank you for choosing [facility] for your healthcare needs today. Please realize this is an emergency room and that we are providing you with a medical screening exam and this may not be complete and all inclusive of all the testing and or work up that you may need to determine your ailment or severity of your illness. It is very important that you follow up as instructed or that you return to the Emergency Department should you have concerns or if your condition changes or worsens in any way. Coding Level of Care Code ED Fortune Teller for Jessica Cassidy
[2022-12-18] MEDS: ondansetron 2 mg/ML SDV 2 mL 4 MG IVP (11:59)
[2022-12-18] MEDS: sodium chloride 0.9% 500 ML 999 ML IV (12:00)
[2022-12-18] MEDS: morphine 4 mg/mL SDV 1 mL IVP ×2 (12:00→13:43)
--- NOTE | 2022-12-18 13:34 | US_ITS ---
WS: [id number] US transvaginal [id number] HISTORY: bilateral pelvic pain, Left adnexal mass COMPARISON: None available. Prior hysterectomy. No midline mass. No free fluid. No RIGHT adnexal mass. There is a complex cystic mass in the LEFT adnexa. There is solid and cystic components and septation s. The mass measures 5.9 x 6.1 x 5.2 cm. Within the solid component there is mild increased vasculari ty. In the central solid component there is what appears to be retracting hemorrhagic clot. US/US transvaginal [id number] IMPRESSION: 1. LEFT adnexal mass measures 5.9 x 6.1 x 5.2 cm. 2. Favor this is probably a hemorrhagic cyst with retracting clot involving th e LEFT ovary. Due to its size and complex appearance recommend follow-up in 4-6 weeks to ensure there is no additional underlying mass which is obscured by th e retracting clot.
== END 2022-12-18 15:22 | disposition home or self-care (01) ==
PROVIDERS: Emergency Provider Physician Assistant; PCP Family Medicine
DX: N83.202 Unspecified ovarian cyst, left side (principal)
CPT/HCPCS: 36415; 74176; 76830; 80053; 83690; 84703; 85025; 96374; 96375; 96376; 99285; J2270; J2405; J7040

== ENCOUNTER 2023-01-17 12:53 | Emergency (ER) | payer MEDICAID, SELFPAY ==
[2023-01-17 13:12] VITALS: BP 151/98; PULSE 83; RESP 16; TEMP 36.4; O2SAT 97; BMI 51.6
--- NOTE | 2023-01-17 13:26 | W.ED.FEMALGU ---
HPI - Female Genitourinary General: Chief complaint: Urogenital-Female Stated complaint: Ovary pain Time Seen by Provider: 01/17/23 13:19 History of Present Illness: Patient is a 32-year-old female comes to the ED with left pelvic pain. Patient was seen here for same complaint back on December 18, 2022 and diagnosed with hemorrhagic cyst of left ovary. She has continued to have pain and left pelvic region. She has seen her women's health doctor back on January 02 and they decided to continue to monitor left ovarian cyst to see if it will resolve on its own. Patient says her pain is not improving and she rates it currently a 8 out of 10. She contacted her women's health doctor today and they told her to come here to the ED for further evaluation. She endorses having some nausea and had 1 episode of emesis yesterday. 4 days ago she had some very light vaginal spotting but that completely resolved. Denies any current vaginal bleeding or vaginal discharge. Denies any fevers. History of partial hysterectomy. Associated symptoms: Deny abdominal pain, headache(s) or nausea Review of Systems Const: Denies: fever(s), chills or fatigue Eyes: Denies: change in vision or eye discomfort ENMT: Denies: throat pain, odynophagia, nasal discharge or nasal congestion Card: Denies: chest pain, palpitations, edema, swelling of feet/ankles, dyspnea on exertion or orthopnea Resp: Denies: dyspnea, productive cough or non-productive cough GI: Denies: abdominal pain, nausea, vomiting, diarrhea, constipation or hematochezia : Reports: pelvic pain (Left pelvic pain); Denies: flank pain, dysuria or hematuria Musc: Denies: neck pain, back pain or extremity swelling Skin/Breast: Denies: rash or new lesions Neuro: Denies: headache(s), numbness in extremities or weakness in extremities PFSH ED PFSH: Medical History Anxiety Depression Epidermoid cyst of face surgically removed High risk medication use Immunization counseling Inflammatory arthritis No pertinent past medical history Positive LOKESH (antinuclear antibody) Stomach ulcer Surgical History H/O tubal ligation History of appendectomy History of delivery History of cholecystectomy History of hysterectomy History of tonsillectomy Family History Mother Colon cancer Diabetes Hyperlipidemia Hypertension Stroke Heart disease Father Diabetes Hypertension Thyroid disease Denies family history of Clotting disorder Chronic kidney disease (CKD) Bleeding disorder Social History Substance/Drug Use: never Physical Exam Const: COMMON NORMALS: patient oriented x3 and alert GENERAL APPEARANCE: cooperative HENMT: COMMON NORMALS: normocephalic HEAD & SCALP: normocephalic MOUTH: Normal oral and palatal mucosa present THROAT: posterior oropharynx normal and uvula midline Neck/C-Spine: COMMON NORMALS: supple GENERAL: Yes normal visual inspection Resp: COMMON NORMALS: normal respiratory effort, No retractions, No use of accessory muscles and clear to auscultation bilaterally AUSCULTATION: clear to auscultation bilaterally Cardio: COMMON NORMALS: regular rate, regular rhythm, S1 normal heart sound present, S2 normal heart sound present, No gallops present (Cardio), No clicks present (Cardio), No murmurs present (Cardio) and Peripheral pulses 2+ throughout RATE: regular rate RHYTHM: regular rhythm HEART SOUNDS: S1 normal heart sound present and S2 normal heart sound present PERIPHERAL PULSES: Peripheral pulses 2+ throughout GI: COMMON NORMALS: Normal to inspection, nondistended, normoactive bowel sounds present, Soft to palpation and no masses PALPATION: Yes Soft to palpation and Yes Tenderness to palpation present (GI) Details: LLQ (Left pelvic tenderness) : COMMON NORMALS: Yes no CVA tenderness BLADDER/KIDNEY EXAM: Yes no CVA tenderness Back/Pelvis: COMMON NORMALS: no CVA tenderness Extremity: COMMON NORMALS: normal to inspection Neuro: COMMON NORMALS: patient oriented x3 SENSORIUM/ORIENTATION: Yes alert GAIT: Yes Normal gait present Skin: GENERAL SKIN EXAM: dry skin Course Vital Signs: Vital signs: Vital Signs Temperature 97.6 F 01/17/23 13:12 Pulse Rate 83 01/17/23 13:12 Respiratory Rate 16 01/17/23 14:47 Blood Pressure 128/85 01/17/23 15:45 Pulse Oximetry 98 01/17/23 15:45 Oxygen Delivery Me thod Room Air 01/17/23 13:12 [facility] - Female Medical Decision Making Patient is a 32-year-old female comes to the ED with left pelvic pain. Patient was seen here for same complaint back on December 18, 2022 and diagnosed with hemorrhagic cyst of left ovary. She has continued to have pain and left pelvic region. She has seen her women's health doctor back on January 02 and they decided to continue to monitor left ovarian cyst to see if it will resolve on its own. Patient says her pain is not improving and she rates it currently a 8 out of 10. She contacted her women's health doctor today and they told her to come here to the ED for further evaluation. She endorses having some nausea and had 1 episode of emesis yesterday. 4 days ago she had some very light vaginal spotting but that completely resolved. Denies any current vaginal bleeding or vaginal discharge. Denies any fevers. History of partial hysterectomy. Vitals are stable. Patient appears nontoxic in no acute distress. She has some left pelvic/left lower quadrant tenderness but rest of exam is benign. Labs are all unremarkable. UA is unremarkable. Transvaginal ultrasound shows a simple cyst left adnexa and the left adnexal mass from previous studies has resolved and is not seen on this study. Patient diagnosed with left ovarian cyst and was told to follow-up with her Physical Education Professor doctor within the next week for reevaluation. Return to ED precautions given. Patient understood and agreed with plan. Lab Data I reviewed the patient's lab results. 01/17/23 13:36 01/17/23 13:36 Radiology Impressions Transvaginal US 01/17/23 13:31 Impression: 1. Simple cyst in left adnexa. 2. Previously noted left adnexal mass is not seen on the current study. Laboratory Results WBC 11.4 10^3/uL (4.0-10.0) H 01/17/23 13:36 RBC 5.01 10^6/uL (4.1-5.3) 01/17/23 13:36 Hgb 15.7 g/dL (11.5-15.3) H 01/17/23 13:36 Hct 47.5 % (37.0-47.0) H 01/17/23 13:36 MCV 94.8 fl (81-99) 01/17/23 13:36 MCH 31.3 pg (28.0-34.0) 01/17/23 13:36 MCHC 33.1 g/dL (30.0-36.0) 01/17/23 13:36 RDW 12.8 % (12.1-15.1) 01/17/23 13:36 Plt Count 228 10^3/cmm (130-400) 01/17/23 13:36 MPV 10.4 fL (7.4-10.4) 01/17/23 13:36 Neut % (Auto) 57.8 % 01/17/23 13:36 Lymph % (Auto) 34.8 % 01/17/23 13:36 [place] % (Auto) 4.9 % 01/17/23 13:36 Eos % (Auto) 1.9 % 01/17/23 13:36 Baso % (Auto) 0.3 % 01/17/23 13:36 Neut # (Auto) 6.61 10^3/uL (1.8-7.7) 01/17/23 13:36 Lymph # (Auto) 4.0 10^3/uL (0.8-4.8) 01/17/23 13:36 [place] # (Auto) 0.6 10^3/uL (0.2-0.9) 01/17/23 13:36 Eos # (Auto) 0.2 10^3/uL (0.0-0.8) 01/17/23 13:36 Baso # (Auto) 0.0 10^3/uL (0.0-0.1) 01/17/23 13:36 Nucleated RBC % (auto) 0 % 01/17/23 13:36 Nucleated RBCs # 0.0 /100WBC 01/17/23 13:36 Sodium 136 mmol/L (136-145) 01/17/23 13:36 Potassium 3.5 mmol/L (3.5-5.1) 01/17/23 13:36 Chloride 101 mmol/L (98-107) 01/17/23 13:36 Carbon Dioxide 28 mmol/L (22-29) 01/17/23 13:36 Anion Gap 10.5 (5-19) 01/17/23 13:36 BUN 12 mg/dL (6-20) 01/17/23 13:36 Creatinine 0.7 mg/dL (0.5-0.9) 01/17/23 13:36 GFR Calculation 95.8 mL/min (90-130) 01/17/23 13:36 Glucose 89 mg/dL (65-115) 01/17/23 13:36 Calculated Osmolality 281 mOsm/kg (285-295) L 01/17/23 13:36 Calcium 8.6 mg/dL (8.5-10.5) 01/17/23 13:36 Total Bilirubin 0.4 mg/dL (0.15-1.2) 01/17/23 13:36 AST 15 U/L (0-32) 01/17/23 13:36 ALT 20 U/L (0-33) 01/17/23 13:36 Alkaline Phosphatase 84 U/L (35-105) 01/17/23 13:36 Total Protein 6.9 g/dL (6.6-8.7) 01/17/23 13:36 Albumin 3.5 g/dL (3.5-5.2) 01/17/23 13:36 Globulin 3.4 g/dL (1.3-4.6) 01/17/23 13:36 Lipase 24 U/L (13-60) 01/17/23 13:36 HCG, Qual Negative (Negative) 01/17/23 13:36 Urine Color Yellow (Yellow) 01/17/23 14:39 Urine Appearance Clear (CLEAR) 01/17/23 14:39 Urine pH 6 (5-7) 01/17/23 14:39 Ur Specific [place] 1.020 (1.005-1.030) 01/17/23 14:39 Urine Protein Trace (Negative) 01/17/23 14:39 Urine Glucose (UA) Norm (Normal) 01/17/23 14:39 Urine Ketones Negative (Negative) 01/17/23 14:39 Urine Blood 3+ (Negative) H 01/17/23 14:39 Urine Nitrate Negative (Negative) 01/17/23 14:39 Urine Bilirubin Neg (Negative) 01/17/23 14:39 Urine Urobilinogen 1 mg/dL (Negative) H 01/17/23 14:39 Ur Leukocyte Esterase Negative (Negative) 01/17/23 14:39 Urine RBC 5-10 /hpf (0-2) H 01/17/23 14:39 Urine WBC Rare /hpf (0-5) 01/17/23 14:39 Ur Squamous Epith Cells 10-15 /hpf (0-5) H 01/17/23 14:39 Amorphous Sediment 1+ /hpf 01/17/23 14:39 Urine Bacteria Trace /hpf (NONE) 01/17/23 14:39 Discharge Plan Discharge Patient Disposition: Home Clinical Impression: Left ovarian cyst Condition: Stable Prescriptions: No Action lisinopril 10 mg tablet 10 mg PO DAILY Humira 40 mg/0.8 mL syringe kit 40 mg SUBCUT .Q 7 DAYS acetaminophen [Tylenol] 325 mg tablet 325 mg PO QID PRN ibuprofen 200 mg tablet 200 mg PO Q6H PRN ascorbic acid (vitamin C) 500 mg capsule PO topiramate [Topamax] 100 mg tablet 100 mg PO DAILY Qty: 90 0RF methotrexate sodium 2.5 mg tablet See Rx Instructions PO .Q7days Qty: 30 3RF Rx Instructions: take 6 tabs on same day once a week PO .Q7days; meloxicam 15 mg tablet 15 mg PO DAILY Qty: 30 2RF albuterol sulfate 90 mcg/actuation HFA aerosol inhaler 2 inh inhalation Q4H PRN (Reason: shortness of breath or wheezing) Qty: 8.5 0RF metoprolol succinate 25 mg tablet extended release 24 hr 25 mg PO DAILY Qty: 30 0RF albuterol sulfate 90 mcg/actuation HFA aerosol inhaler 2 inh INHALATION Q4H PRN (Reason: shortness of breath or wheezing) Qty: 18 0RF Discharge Orders: Discharge ED (Routine); Ordered 01/17/23 Ordered By: Ben Saravia Referrals: Briana Dumas DO [Primary Care Provider] - Discharge Diet: Regular Discharge Activity: Increase activity as tolerated Patient Instructions: Ovarian Cyst (ED), Opioid Safety Activity Restrictions/Additional Instructions: Follow-up with medical provider as directed in the next 3 to 5 days for reevaluation. Take medications as prescribed. Return to the ER or your medical provider if condition worsens. Please read and understand discharge instructions. Thank you for choosing [facility] for your healthcare needs today. Please realize this is an emergency room and that we are providing you with a medical screening exam and this may not be complete and all inclusive of all the testing and or work up that you may need to determine your ailment or severity of your illness. It is very important that you follow up as instructed or that you return to the Emergency Department should you have concerns or if your condition changes or worsens in any way. Coding Level of Care Code ED Package Lift Operator for Jessica Cassidy
--- NOTE | 2023-01-17 13:31 | US_ITS ---
WS: [id number] Pelvic ultrasound, 01/17/2023 Clinical Data: Left pelvic pain, hx of left hemorrhagic ovarian cyst Comparison: Pelvic ultrasound, 12/18/2022 Findings: The uterus is been removed There is a cyst in the left adnexa measuring 3.70 x 4.66 x 5.29 cm. No internal echoes are seen and t here are no septations. The complex left adnexal mass noted on the previous study is not apparent tod ay. The right ovary was not imaged. There is no fluid in the cul-de-sac. US/US transvaginal [id number] Impression: 1. Simple cyst in left adnexa. 2. Previously noted left adnexal mass is not seen on the current study.
[2023-01-17 13:58] LABS: Basophils % 0.3 %; Eosinophils # 0.2 10^3/uL (0.0-0.8); Eosinophils % 1.9 %; Hematocrit 47.5 % (37.0-47.0); Hemoglobin 15.7 g/dL (11.5-15.3); Lymphocytes % 34.8 %; Mean Corpuscular HGB Conc 33.1 g/dL (30.0-36.0); Mean Corpuscular Hemoglobin 31.3 pg (28.0-34.0); Mean Corpuscular Volume 94.8 fl (81-99); Mean Platelet Volume 10.4 fL (7.4-10.4); Monocytes # 0.6 10^3/uL (0.2-0.9); Monocytes % 4.9 %; Neutrophils # 6.61 10^3/uL (1.8-7.7); Neutrophils % 57.8 %; Nucleated Red Blood Cells % 0 %; Platelet Count 228 10^3/cmm (130-400); Red Blood Count 5.01 10^6/uL (4.1-5.3); Red Cell Distribution Width 12.8 % (12.1-15.1); White Blood Count 11.4 10^3/uL (4.0-10.0)
[2023-01-17 14:19] LABS: Alanine Aminotransferase 20 U/L (0-33); Albumin Level 3.5 g/dL (3.5-5.2); Alkaline Phosphatase 84 U/L (35-105); Anion Gap 10.5 (5-19); Aspartate Amino Transferase 15 U/L (0-32); Blood Urea Nitrogen 12 mg/dL (6-20); Calcium 8.6 mg/dL (8.5-10.5); Carbon Dioxide 28 mmol/L (22-29); Chloride 101 mmol/L (98-107); Globulin 3.4 g/dL (1.3-4.6); Glomerular Filtration Rate 95.8 mL/min (90-130); Glucose 89 mg/dL (65-115); Lipase 24 U/L (13-60); Osmolality Calculated 281 mOsm/kg (285-295); Potassium 3.5 mmol/L (3.5-5.1); Sodium 136 mmol/L (136-145); Total Bilirubin 0.4 mg/dL (0.15-1.2); Total Protein 6.9 g/dL (6.6-8.7)
[2023-01-17 14:22] LABS: HCG, Serum Qual Negative (Negative)
[2023-01-17 14:47] VITALS: RESP 16; O2SAT 99
[2023-01-17] MEDS: ondansetron 2 mg/ML SDV 2 mL 4 MG IVP (14:47)
[2023-01-17] MEDS: morphine 4 mg/mL SDV 1 mL IVP (14:47)
[2023-01-17 15:11] LABS: Urine Appearance Clear (CLEAR); Urine Color Yellow (Yellow); pH Urine 6 (5-7)
[2023-01-17 15:12] LABS: Add Urine Microscopic? YES; Bilirubin Urine Neg (Negative); Blood Urine 3+ (Negative); Glucose Urine UA Norm (Normal); Ketones Urine Negative (Negative); Leukocyte Esterase Urine Negative (Negative); Nitrate Urine Negative (Negative); Protein Urine Trace (Negative); Urobilinogen Urine 1 mg/dL (Negative)
[2023-01-17 15:13] LABS: Bacteria Urine TRACE /hpf; WBC Urine RARE /hpf (0-5)
[2023-01-17 15:14] LABS: Add Urine Culture? No; Amorphous Sediment Urine 1+ /hpf
[2023-01-17 15:31] VITALS: BP 133/87
[2023-01-17 15:35] VITALS: BP 133/87
[2023-01-17 15:40] VITALS: BP 128/85; O2SAT 97
[2023-01-17 15:45] VITALS: BP 128/85; O2SAT 98
== END 2023-01-17 15:51 | disposition home or self-care (01) ==
PROVIDERS: Emergency Provider Physician Assistant; PCP Family Medicine
DX: N83.292 Other ovarian cyst, left side (principal)
CPT/HCPCS: 36415; 76830; 80053; 81001; 83690; 84703; 85025; 96374; 96375; 99284; J2270; J2405

== ENCOUNTER 2023-02-18 17:23 | Outpatient (CLI) | payer BC, MEDICAID, SELFPAY ==
--- NOTE | 2023-02-18 | XRR_ITS ---
PROCEDURE INFORMATION: Exam: XR Right Knee Exam date and time: 02/18/2023 5:48 PM Age: 32 years old Clinical indication: Injury or trauma; Fall; Blunt trauma; Knee; Right; Injury date: 2 weeks ago; Additional info: Right knee injury TECHNIQUE: Imaging protocol: Radiologic exam of the right knee. Views: 3 views. COMPARISON: CR XR knee RT 3V* [id number] 11/26/2022 4:53 PM FINDINGS: Bones/joints: There is a slightly depressed fracture of the lateral tibial plateau extending just lateral to the tibial eminence not markedly changed in appearance from previous exam. No new fractures identified. Soft tissues: Unremarkable. XR/XR knee RT 3V* [id number] IMPRESSION: Stable appearance of slightly depressed fracture lateral tibial plateau.
== END 2023-02-18 17:24 | disposition home or self-care (01) ==
PROVIDERS: PCP Family Medicine; Visit Provider Family Medicine
DX: S82.141K Displaced bicondylar fracture of right tibia, subsequent encounter for closed fracture with nonunion (principal); S89.91XD Unspecified injury of right lower leg, subsequent encounter; X58.XXXD Exposure to other specified factors, subsequent encounter
CPT/HCPCS: 73562

== ENCOUNTER 2023-02-25 14:37 | Emergency (ER) | payer BC, MEDICAID, SELFPAY ==
[2023-02-25 14:41] VITALS: BP 148/99; PULSE 86; RESP 18; TEMP 36.7; O2SAT 98
[2023-02-25 16:39] LABS: Basophils % 0.3 %; Eosinophils # 0.2 10^3/uL (0.0-0.8); Eosinophils % 1.8 %; Hemoglobin 15.6 g/dL (11.5-15.3); Lymphocytes # 4.6 10^3/uL (0.8-4.8); Lymphocytes % 33.7 %; Mean Corpuscular HGB Conc 33.2 g/dL (30.0-36.0); Mean Corpuscular Hemoglobin 31.9 pg (28.0-34.0); Mean Corpuscular Volume 96.1 fl (81-99); Mean Platelet Volume 10.4 fL (7.4-10.4); Monocytes # 0.7 10^3/uL (0.2-0.9); Monocytes % 5.4 %; Neutrophils # 7.94 10^3/uL (1.8-7.7); Neutrophils % 58.5 %; Nucleated Red Blood Cells % 0 %; Platelet Count 185 10^3/cmm (130-400); Red Blood Count 4.89 10^6/uL (4.1-5.3); Red Cell Distribution Width 13.1 % (12.1-15.1); White Blood Count 13.6 10^3/uL (4.0-10.0)
[2023-02-25 17:16] LABS: HCG, Serum Qual Negative (Negative); Slide Review Slide Review Perform
[2023-02-25 17:25] LABS: Alanine Aminotransferase 22 U/L (0-33); Albumin Level 3.3 g/dL (3.5-5.2); Alkaline Phosphatase 83 U/L (35-105); Anion Gap 13.8 (5-19); Aspartate Amino Transferase 17 U/L (0-32); Blood Urea Nitrogen 10 mg/dL (6-20); Calcium 8.5 mg/dL (8.5-10.5); Carbon Dioxide 22 mmol/L (22-29); Chloride 103 mmol/L (98-107); Globulin 3.4 g/dL (1.3-4.6); Glomerular Filtration Rate 114.4 mL/min (90-130); Glucose 87 mg/dL (65-115); Lipase 15 U/L (13-60); Osmolality Calculated 278 mOsm/kg (285-295); Potassium 3.8 mmol/L (3.5-5.1); Sodium 135 mmol/L (136-145); Total Bilirubin 0.3 mg/dL (0.15-1.2); Total Protein 6.7 g/dL (6.6-8.7)
--- NOTE | 2023-02-25 18:09 | W.ED.ABDPA2 ---
HPI - Abdominal Pain General: Chief Complaint: Abdominal Pain Stated Complaint: sent by Evan for ovarian pain Time Seen by Provider: 02/25/23 18:08 History of Present Illness: 32-year-old female comes in today with lower abdominal/pelvic pain. Patient has a known ovarian cyst that she has been monitoring for the last 2 to 3 months. Patient reports today the pain got worse and she was unable to tolerate it. Patient reports that she had talked to her primary care, Dr. Dumas, and her EXECUTIVE MARKETING ASSISTANT, Dr. Dueñas. Patient is scheduled to follow-up with a EXECUTIVE MARKETING ASSISTANT at [facility] in March for further consideration of surgical alternatives. Patient has had a partial hysterectomy but since then has developed these ovarian cyst which is caused her more significant pain and discomfort. Patient reports some nausea with her abdominal pain but no fever or abnormal bleeding. Patient appears nontoxic. Patient appears in mild to moderate pain. Associated Symptoms: Denies fever(s) Review of Systems General: Reports: 10 or more systems reviewed and unremarkable except in HPI and below Const: Denies: fever(s) Resp: Denies: dyspnea GI: Reports: abdominal pain : Reports: other (Partial hysterectomy, ovarian cyst) Musc: Denies: neck pain or back pain PFSH ED PFSH: Medical History Anxiety Depression Epidermoid cyst of face surgically removed High risk medication use Immunization counseling Inflammatory arthritis No pertinent past medical history Positive LOKESH (antinuclear antibody) Stomach ulcer Surgical History H/O tubal ligation History of appendectomy History of delivery History of cholecystectomy History of hysterectomy History of tonsillectomy Family History Mother Colon cancer Diabetes Hyperlipidemia Hypertension Stroke Heart disease Father Diabetes Hypertension Thyroid disease Denies family history of Clotting disorder Chronic kidney disease (CKD) Bleeding disorder Social History Substance/Drug Use: never Physical Exam Const: COMMON NORMALS: alert HENMT: COMMON NORMALS: normocephalic HEAD & SCALP: normocephalic Eye: GENERAL EYE: appearance normal, both eyes and all related structures (Wears glasses) Neck/C-Spine: COMMON NORMALS: full ROM Resp: COMMON NORMALS: normal respiratory effort Cardio: COMMON NORMALS: regular rate RATE: regular rate GI: COMMON NORMALS: Soft to palpation (Obese) and non-tender (Lower abdominal) PALPATION: Yes Soft to palpation (Obese) Extremity: COMMON NORMALS: normal to inspection Neuro: SENSORIUM/ORIENTATION: Yes alert Skin: COMMON NORMALS: turgor normal GENERAL SKIN EXAM: turgor normal Course Vital Signs: Vital signs: Vital Signs Temperature 98.1 F 02/25/23 14:41 Pulse Rate 72 02/25/23 20:34 Respiratory Rate 15 02/25/23 20:34 Blood Pressure 120/79 02/25/23 20:34 Pulse Oximetry 99 02/25/23 20:34 Oxygen Delivery Me thod Room Air 02/25/23 14:41 MDM - Abdominal Pain Medical Decision Making Patient comes in today with a known history of ovarian cyst with exacerbation of pain. Patient was recommended to be seen in the ER by Dr. Dueñas, EXECUTIVE MARKETING ASSISTANT, for evaluation with CT and ultrasound. Patient appears nontoxic. Patient appears in mild to moderate pain at rest. Abdomen soft and morbidly obese with some lower abdominal tenderness. Vital signs are normal. Differential diagnosis includes but not limited to ruptured ovarian cyst, UTI, appendicitis, colitis. Laboratory values were unremarkable except for some mild leukocytosis at 13,000. Urinalysis did not indicate any signs of infection. CMP had a sodium of 135. CT of the abdomen pelvis showed no acute abnormalities and a persistent left ovarian cyst. Ultrasound noted an ovarian cyst that was approximately 3.3 cm. Patient was treated for her pain in the emergency room with fentanyl. Patient be continued on hydrocodone for severe pain and recommended use acetaminophen ibuprofen for other pain control. Patient reported understanding and agreed to plan and need for follow-up with EXECUTIVE MARKETING ASSISTANT or primary care. Lab Data 02/25/23 16:27 02/25/23 16:27 Labs/Radiology: Radiology Impressions Abdomen/Pelvis CT 02/25/23 18:23 IMPRESSION: 1. No acute abnormality is seen in the abdomen or pelvis. 2. Mild hepatomegaly. 3. Diverticulosis coli Pelvis Ultrasound 02/25/23 18:23 IMPRESSION: 1. No acute findings. 2. 3.3 cm left ovarian cyst. Benign finding in the physiologic size range. No follow-up is needed. (Reference: Diana, 2019) References: Ortiz D, et al. Simple Adnexal Cysts: SRU Consensus Conference Update on Follow-up and Reporting. Radiology. 2019;293(2):359-371. Laboratory Results WBC 13.6 10^3/uL (4.0-10.0) H 02/25/23 16:27 RBC 4.89 10^6/uL (4.1-5.3) 02/25/23 16: Hgb 15.6 g/dL (11.5-15.3) H 02/25/23 16:27 Hct 47.0 % (37.0-47.0) 02/25/23 16: MCV 96.1 fl (81-99) 02/25/23 16: MCH 31.9 pg (28.0-34.0) 02/25/23 16: MCHC 33.2 g/dL (30.0-36.0) 02/25/23 16: RDW 13.1 % (12.1-15.1) 02/25/23 16: Plt Count 185 10^3/cmm (130-400) 02/25/23 16: MPV 10.4 fL (7.4-10.4) 02/25/23 16: Neut % (Auto) 58.5 % 02/25/23 16: Lymph % (Auto) 33.7 % 02/25/23 16:27 [place] % (Auto) 5.4 % 02/25/23 16: Eos % (Auto) 1.8 % 02/25/23 16: Baso % (Auto) 0.3 % 02/25/23 16: Neut # (Auto) 7.94 10^3/uL (1.8-7.7) H 02/25/23 16:27 Lymph # (Auto) 4.6 10^3/uL (0.8-4.8) 02/25/23 16: [place] # (Auto) 0.7 10^3/uL (0.2-0.9) 02/25/23 16:27 Eos # (Auto) 0.2 10^3/uL (0.0-0.8) 02/25/23 16: Baso # (Auto) 0.0 10^3/uL (0.0-0.1) 02/25/23 16:27 Nucleated RBC % (auto) 0 % 02/25/23 16:27 Nucleated RBCs # 0.0 /100WBC 02/25/23 16:27 Sodium 135 mmol/L (136-145) L 02/25/23 16:27 Potassium 3.8 mmol/L (3.5-5.1) 02/25/23 16:27 Chloride 103 mmol/L (98-107) 02/25/23 16:27 Carbon Dioxide 22 mmol/L (22-29) 02/25/23 16:27 Anion Gap 13.8 (5-19) 02/25/23 16:27 BUN 10 mg/dL (6-20) 02/25/23 16:27 Creatinine 0.6 mg/dL (0.5-0.9) 02/25/23 16:27 GFR Calculation 114.4 mL/min (90-130) 02/25/23 16:27 Glucose 87 mg/dL (65-115) 02/25/23 16:27 Calculated Osmolality 278 mOsm/kg (285-295) L 02/25/23 16:27 Calcium 8.5 mg/dL (8.5-10.5) 02/25/23 16:27 Total Bilirubin 0.3 mg/dL (0.15-1.2) 02/25/23 16:27 AST 17 U/L (0-32) 02/25/23 16:27 ALT 22 U/L (0-33) 02/25/23 16:27 Alkaline Phosphatase 83 U/L (35-105) 02/25/23 16:27 Total Protein 6.7 g/dL (6.6-8.7) 02/25/23 16:27 Albumin 3.3 g/dL (3.5-5.2) L 02/25/23 16:27 Globulin 3.4 g/dL (1.3-4.6) 02/25/23 16:27 Lipase 15 U/L (13-60) 02/25/23 16:27 HCG, Qual Negative (Negative) 02/25/23 16:27 Urine Color Yellow (Yellow) 02/25/23 18:00 Urine Appearance Sl hazy (CLEAR) A 02/25/23 18:00 Urine pH 8 (5-7) H 02/25/23 18:00 Ur Specific [place] 1.015 (1.005-1.030) 02/25/23 18:00 Urine Protein Neg (Negative) 02/25/23 18:00 Urine Glucose (UA) Norm (Normal) 02/25/23 18:00 Urine Ketones Negative (Negative) 02/25/23 18:00 Urine Blood 2+ (Negative) H 02/25/23 18:00 Urine Nitrate Negative (Negative) 02/25/23 18:00 Urine Bilirubin Neg (Negative) 02/25/23 18:00 Urine Urobilinogen 4 mg/dL (Negative) H 02/25/23 18:00 Ur Leukocyte Esterase Negative (Negative) 02/25/23 18:00 Urine RBC 0-4 /hpf (0-2) H 02/25/23 18:00 Urine WBC 0-4 /hpf (0-5) H 02/25/23 18:00 Ur Squamous Epith Cells 0-4 /hpf (0-5) H 02/25/23 18:00 Amorphous Sediment 1+ /hpf 02/25/23 18:00 Urine Bacteria Trace /hpf (NONE) 02/25/23 18:00 Discharge Plan Discharge Patient Disposition: Home Clinical Impression: Ovarian cyst Qualifiers: Laterality: left Qualified Code(s): N83.202 - Unspecified ovarian cyst, left side Condition: Stable Prescriptions: New hydrocodone-acetaminophen 5-325 mg tablet 1 tab PO Q6H PRN (Reason: pain (scale score 7-10)) Qty: 10 0RF No Action lisinopril 10 mg tablet 10 mg PO DAILY Humira 40 mg/0.8 mL syringe kit 40 mg SUBCUT .Q 7 DAYS acetaminophen [Tylenol] 325 mg tablet 325 mg PO QID PRN ibuprofen 200 mg tablet 200 mg PO Q6H PRN ascorbic acid (vitamin C) 500 mg capsule PO topiramate [Topamax] 100 mg tablet 100 mg PO DAILY Qty: 90 0RF methotrexate sodium 2.5 mg tablet See Rx Instructions PO .Q7days Qty: 30 3RF Rx Instructions: take 6 tabs on same day once a week PO .Q7days; meloxicam 15 mg tablet 15 mg PO DAILY Qty: 30 2RF albuterol sulfate 90 mcg/actuation HFA aerosol inhaler 2 inh inhalation Q4H PRN (Reason: shortness of breath or wheezing) Qty: 8.5 0RF metoprolol succinate 25 mg tablet extended release 24 hr 25 mg PO DAILY Qty: 30 0RF albuterol sulfate 90 mcg/actuation HFA aerosol inhaler 2 inh INHALATION Q4H PRN (Reason: shortness of breath or wheezing) Qty: 18 0RF Discharge Orders: Discharge ED (Routine); Ordered 02/25/23 Ordered By: Micah Eng Referrals: Briana Dumas DO [Primary Care Provider] - Discharge Diet: Usual diet Discharge Activity: Increase activity as tolerated Patient Instructions: Opioid Safety, Pain Management Activity Restrictions/Additional Instructions: Home and rest. Drink plenty of water and fluids. Use acetaminophen and ibuprofen to control pain. Use hydrocodone for severe pain. Follow-up with primary care or EXECUTIVE MARKETING ASSISTANT for further treatment and evaluation. Return to ED for new concerns or worsening symptoms such as high fever, inability to hold fluids down, or uncontrolled pain. Coding Level of Care Code ED Charge Gang Weigher for Jessica Cassidy
--- NOTE | 2023-02-25 18:23 | CTR_ITS ---
PROCEDURE INFORMATION: Exam: CT Abdomen And Pelvis With Contrast Exam date and time: 02/25/2023 7:02 PM Age: 32 years old Clinical indication: Abdominal pain; Generalized; Prior surgery; Surgery date: 6+ months; Surgery type: Neisha, appy, tubal, csection, hyst; Additional info: Abd pain, n/v, HX of ovarian cyst TECHNIQUE: Imaging protocol: Computed tomography of the abdomen and pelvis with contrast. Radiation optimization: All CT scans at this facility use at least one of these dose optimization techniques: automated exposure control; mA and/or kV adjustment per patient size (includes targeted exams where dose is matched to clinical indication); or iterative reconstruction. Contrast material: OMNI 350; Contrast volume: 100 ml; Contrast route: INTRAVENOUS (IV); REPORTING DATA: Count of CT and Cardiac NM exams in prior 12 months: This patient has received 3 known CTs and 0 known cardiac nuclear medicine studies in the 12 months prior to the current study. COMPARISON: CT kidney stone [id number] 12/18/2022 12:30 PM RADIATION DOSE METRICS: Total DLP (mGy-cm): 1377.33 FINDINGS: Liver: The liver is mildly enlarged. No parenchymal lesion is seen. Gallbladder and bile ducts: The gallbladder has been removed. No biliary ductal dilatation. Pancreas: Normal. No ductal dilation. Spleen: Normal. No splenomegaly. Adrenal glands: An 18 mm left adrenal nodule is noted. The right adrenal gland appears normal. Kidneys and ureters: Normal. No hydronephrosis. Stomach and bowel: No intestinal obstruction. Diverticulosis coli is seen, without evidence of diverticulitis. Appendix: The appendix has been removed. Intraperitoneal space: Unremarkable. No free air. No significant fluid collection. Vasculature: Unremarkable. No abdominal aortic aneurysm. Lymph nodes: Unremarkable. No enlarged lymph nodes. Urinary bladder: Unremarkable as visualized. Reproductive: The uterus is absent. The ovaries appear normal. A 5 cm left ovarian cyst is noted. Bones/joints: Unremarkable. No acute fracture. Soft tissues: Unremarkable. CT/CT abdomen pelvis w con* [id number] IMPRESSION: 1. No acute abnormality is seen in the abdomen or pelvis. 2. Mild hepatomegaly. 3. Diverticulosis coli
--- NOTE | 2023-02-25 18:23 | USR_ITS ---
PROCEDURE INFORMATION: Exam: US Pelvis, Transvaginal Exam date and time: 02/25/2023 7:30 PM Age: 32 years old Clinical indication: Abdominal pain and pelvic pain; Prior surgery; Surgery date: 6+ months; Patient HX: Neg hcg, chronic generalized abdominal and pelvic pain x 3 months. S/P partial hysterectomy 2020, leaving both ovaries. ; Additional info: Ovarian cyst, HX of partial hysterectomy LABS AND CLINICAL REPORTS: Serum Choriogonadotropin (HCG): 0 mIU/mL TECHNIQUE: Imaging protocol: Real-time transvaginal pelvic ultrasound with image documentation. Transvaginal imaging was used for better evaluation of the endometrium, adnexa, and/or cervix. COMPARISON: CT abdomen pelvis w con* [id number] 02/25/2023 7:02 PM FINDINGS: Uterus: Surgically absent. Right ovary/adnexa: Right ovary measures 3.8 cm x 3.9 cm x 2.2 cm. Right ovarian volume is 17.3 mL. Normal blood flow. Left ovary/adnexa: Left ovary measures 5.7 cm x 4.3 cm x 5.3 cm. Left ovarian volume is 67.5 mL. 3.3 cm partially collapsed anechoic cyst. Normal blood flow. Intraperitoneal space: No free fluid. US/US pelvic limited [id number] IMPRESSION: 1. No acute findings. 2. 3.3 cm left ovarian cyst. Benign finding in the physiologic size range. No follow-up is needed. (Reference: Diana, 2019) References: hiren Cast al. Simple Adnexal Cysts: U Consensus Conference Update on Follow-up and Reporting. Radiology. 2019;293(2):359-371.
[2023-02-25 18:30] LABS: Add Urine Culture? No; Add Urine Microscopic? YES; Amorphous Sediment Urine 1+ /hpf; Bacteria Urine TRACE /hpf; Bilirubin Urine Neg (Negative); Blood Urine 2+ (Negative); Glucose Urine UA Norm (Normal); Ketones Urine Negative (Negative); Leukocyte Esterase Urine Negative (Negative); Nitrate Urine Negative (Negative); Protein Urine Neg (Negative); RBC Urine 0-4 /hpf (0-2); Specific Gravity, Urine 1.015 (1.005-1.030); Squamous Epithelial Cell Urine 0-4 /hpf (0-5); Urine Appearance SL Hazy (CLEAR); Urine Color Yellow (Yellow); Urobilinogen Urine 4 mg/dL (Negative); WBC Urine 0-4 /hpf (0-5); pH Urine 8 (5-7)
[2023-02-25 18:43] VITALS: RESP 12
[2023-02-25] MEDS: fentaNYL 50 mcg/mL INJ 2mL 100 MCG IVP (18:43)
[2023-02-25] MEDS: ondansetron 2 mg/ML SDV 2 mL 4 MG IVP (18:43)
[2023-02-25] MEDS: sodium chloride 0.9% 500 ML 999 ML IV (18:46)
[2023-02-25 18:48] VITALS: BP 129/98; PULSE 72; RESP 15; O2SAT 98
[2023-02-25] MEDS: iohexol 350 mg/mL 500 mL Btl (per mL) IV (19:10)
[2023-02-25 20:31] VITALS: RESP 15
[2023-02-25] MEDS: fentaNYL 50 mcg/mL INJ 2mL IVP (20:31)
[2023-02-25 20:34] VITALS: BP 120/79; PULSE 72; RESP 15; O2SAT 99
== END 2023-02-25 21:00 | disposition home or self-care (01) ==
PROVIDERS: Physician Assistant; Emergency Provider Nurse Practitioner Family; PCP Family Medicine
DX: N83.202 Unspecified ovarian cyst, left side (principal)
CPT/HCPCS: 36415; 74177; 76857; 80053; 81001; 83690; 84703; 85025; 96374; 96375; 96376; 99285; J2405; J3010; J7040; Q9967

== ENCOUNTER 2023-05-11 09:46 | Emergency (ER) | payer BC, MEDICAID, SELFPAY ==
[2023-05-11 09:52] VITALS: BP 160/102; PULSE 92; RESP 16; TEMP 36.4; O2SAT 97; BMI 50.0
--- NOTE | 2023-05-11 10:06 | XRR_ITS ---
PROCEDURE INFORMATION: Exam: XR Abdomen Exam date and time: 05/11/2023 10:20 AM Age: 33 years old Clinical indication: Abdominal pain; Prior surgery; Surgery date: 6+ months; Surgery type: Hysto; Additional info: Obstruction TECHNIQUE: Imaging protocol: Radiologic exam of the abdomen. Views: Frontal supine view of the abdomen. 1 View. COMPARISON: CT abdomen pelvis w con* [id number] 02/25/2023 7:02 PM FINDINGS: Limitations: Assessment is limited due to body habitus. Lungs: Visualized lung bases are clear. Gastrointestinal tract: Normal. No bowel dilation. No significant stool burden. Bones/joints: Unremarkable. XR/XR KUB portable [id number] IMPRESSION: Unremarkable bowel gas pattern
--- NOTE | 2023-05-11 10:10 | ED_ITS ---
HPI - Abdominal Pain General: Chief Complaint: Abdominal Pain Stated Complaint: abd pain N/V Time Seen by Provider: 05/11/23 09:56 Source: patient Mode of arrival: ambulatory Limitations: no limitations History of Present Illness: 33yo Female presents with upper abdominal pain that radiates to her umbilicus and is sharp in nature. Patient reports the pain started yesterday evening. States she was nauseous and did not attempt to eat last night. Reports that she did attempt to eat today and has had vomiting since. States that she did have 1 episode of diarrhea, but has mostly had vomiting. Patient reports previous surgical history of cholecystectomy, appendectomy, section, hysterect maureen. She denies any fever, cough, difficulty breathing, shortness of breath, chest pain, history of bowel obstruction, history of reflux or heartburn Associated Symptoms: Reports chills, diarrhea (1 episode), nausea and vomiting; Denies fever(s) Review of Systems General: Reports: 10 or more systems reviewed and unremarkable except in HPI and below Const: Reports: chills; Denies: fever(s) or body aches ENMT: Denies: throat pain Card: Denies: chest pain Resp: Denies: dyspnea GI: Reports: abdominal pain, nausea, vomiting and diarrhea (1 episode) : Denies: difficulty voiding Musc: Denies: neck pain or back pain Skin/Breast: Denies: erythema PFSH ED PFSH: Medical History Anxiety Depression Epidermoid cyst of face surgically removed High risk medication use Immunization counseling Inflammatory arthritis No pertinent past medical history Positive LOKESH (antinuclear antibody) Stomach ulcer Surgical History H/O tubal ligation History of appendectomy History of delivery History of cholecystectomy History of hysterectomy History of tonsillectomy Family History Mother Colon cancer Diabetes Hyperlipidemia Hypertension Stroke Heart disease Father Diabetes Hypertension Thyroid disease Denies family history of Clotting disorder Chronic kidney disease (CKD) Bleeding disorder Social History Substance/Drug Use: never Physical Exam Const: COMMON NORMALS: no acute distress, patient oriented x3 and alert GENERAL APPEARANCE: cooperative ORIENTATION/CONSCIOUSNESS: Yes awake OTHER: Patient is ambulatory to the exam room unassisted. She is sitting upright on the stretcher in no acute distress. No family is at bedside HENMT: COMMON NORMALS: normocephalic, atraumatic, external ears normal and Normal external nose present HEAD & SCALP: normocephalic and atraumatic NOSE: Normal external nose present EXTERNAL EAR: Yes external ears normal MOUTH: lip normal Eye: GENERAL EYE: appearance normal, both eyes and all related structures Neck/C-Spine: COMMON NORMALS: full ROM Chest: CHEST: Yes Symmetrical chest wall rise Resp: COMMON NORMALS: normal respiratory effort and clear to auscultation bilaterally EFFORT & INSPECTION: Yes able to speak in complete sentences and Yes abnormal respiratory pattern AUSCULTATION: clear to auscultation bilaterally Cardio: COMMON NORMALS: regular rate and regular rhythm RATE: regular rate RHYTHM: regular rhythm GI: COMMON NORMALS: Soft to palpation PALPATION: Yes Soft to palpation, Yes Tenderness to palpation present (GI) Details: LUQ and other (umbilicus), No Guarding due to palpation present (GI) and No Rigid due to palpation : BLADDER/KIDNEY EXAM: Yes CVA tenderness on the left Back/Pelvis: GENERAL BACK: Yes CVA tenderness Extremity: COMMON NORMALS: full ROM Neuro: COMMON NORMALS: patient oriented x3 SENSORIUM/ORIENTATION: Yes alert SPEECH: speech normal Psych: COMMON NORMALS: cooperative ATTITUDE: Yes calm Course Reevaluation(s): Reevaluation #1: No vomiting but no improvement in symptoms. Discussed lab and XR results. Patient agreeable with proceeding with CT scan Time: 11:15 Vital Signs: Vital signs: Vital Signs Temperature 97.6 F 05/11/23 09:52 Pulse Rate 92 05/11/23 09:52 Respiratory Rate 16 05/11/23 09:52 Blood Pressure 160/102 05/11/23 09:52 Pulse Oximetry 97 05/11/23 09:52 Oxygen Delivery Me thod Room Air 05/11/23 09:52 MDM - Abdominal Pain Medical Decision Making 33yo Female here with sharp upper abdominal pain that started last night and has persisted today. Patient had 1 episode of diarrhea and multiple episodes of vomiting. Patient denies fever, cough, congestion, difficulty breathing, shortness of breath, chest pain, reflux/heartburn. Previous surgical history of cholecystectomy, appendectomy, section, and hysterectomy. Patient is nontoxic in appearance. Vital signs are stable. White blood cell count noted to be elevated at 13.22. CMP is grossly unr emarkable. Lipase is noted to be in the normal range. KUB with an unremarkable bowel gas pattern. Proceeded with CTAP due to tenderness and patient discomfort. There were no acute findings within the abdomen or pelvis. Discussed with patient hepatomegaly and fatty infiltration or the same as with her last CT scan. Discussed that there are diverticula, but no indication of diverticulitis. Advised patient this is likely a viral infection, gastroenteritis since she did have vomiting and diarrhea. Dicyclomine and ondansetron were sent to patient's pharmacy. Recommend she follow-up with [facility], call Saturday with an update of symptoms and to discuss a recheck. Advised to return to the emergency department if any rapid worsening symptoms, onset of fever associated with worsening, and as needed. Differential Diagnosis Likely abdominal pain, constipation, gastroenteritis, pancreatitis and small bowel obstruction Lab Data I reviewed the patient's lab results. 05/11/23 10:12 05/11/23 10:12 Labs/Radiology: Radiology Impressions KUB X-Ray 05/11/23 10:06 IMPRESSION: Unremarkable bowel gas pattern Abdomen/Pelvis CT 05/11/23 11:23 IMPRESSION: 1. No acute findings within the abdomen or pelvis. 2. Hepatomegaly with fatty infiltration unchanged. Laboratory Results WBC 13.22 10^3/uL (3.29-11.43) H 05/11/23 10:12 RBC 5.02 10^6/uL (3.85-5.65) 05/11/23 10:12 Hgb 15.90 g/dL (11.27-16.99) 05/11/23 10:12 Hct 47.7 % (36-47) H 05/11/23 10:12 MCV 95.0 fl (85-98) 05/11/23 10:12 MCH 31.7 pg (27-33) 05/11/23 10:12 MCHC 33.3 g/dL (30-55) 05/11/23 10:12 RDW 12.9 % (12.1-15.1) 05/11/23 10:12 Plt Count 227 10^3/cmm (157-399) 05/11/23 10:12 MPV 10.6 fL (7.4-10.4) H 05/11/23 10:12 Neut % (Auto) 62.6 % 05/11/23 10:12 Lymph % (Auto) 31.2 % 05/11/23 10:12 [place] % (Auto) 4.5 % 05/11/23 10:12 Eos % (Auto) 1.1 % 05/11/23 10:12 Baso % (Auto) 0.2 % 05/11/23 10:12 Neut # (Auto) 8.28 10^3/uL (1.8-7.7) H 05/11/23 10:12 Lymph # (Auto) 4.1 10^3/uL (0.8-4.8) 05/11/23 10:12 [place] # (Auto) 0.6 10^3/uL (0.2-0.9) 05/11/23 10:12 Eos # (Auto) 0.2 10^3/uL (0.0-0.8) 05/11/23 10:12 Baso # (Auto) 0.0 10^3/uL (0.0-0.1) 05/11/23 10:12 Nucleated RBC % (auto) 0 % 05/11/23 10:12 Nucleated RBCs # 0.0 /100WBC 05/11/23 10:12 Sodium 132 mmol/L (136-145) L 05/11/23 10:12 Potassium 3.8 mmol/L (3.5-5.1) 05/11/23 10:12 Chloride 99 mmol/L (98-107) 05/11/23 10:12 Carbon Dioxide 25 mmol/L (22-29) 05/11/23 10:12 Anion Gap 11.8 (5-19) 05/11/23 10:12 BUN 9 mg/dL (6-20) 05/11/23 10:12 Creatinine 0.7 mg/dL (0.5-0.9) 05/11/23 10:12 GFR Calculation 95.2 mL/min (90-130) 05/11/23 10:12 Glucose 108 mg/dL (65-115) 05/11/23 10:12 Calculated Osmolality 273 mOsm/kg (285-295) L 05/11/23 10:12 Calcium 8.5 mg/dL (8.5-10.5) 05/11/23 10:12 Total Bilirubin 0.5 mg/dL (0.15-1.2) 05/11/23 10:12 AST 14 U/L (0-32) 05/11/23 10:12 ALT 18 U/L (0-33) 05/11/23 10:12 Alkaline Phosphatase 84 U/L (35-105) 05/11/23 10:12 Total Protein 7.4 g/dL (6.6-8.7) 05/11/23 10:12 Albumin 3.7 g/dL (3.5-5.2) 05/11/23 10:12 Globulin 3.7 g/dL (1.3-4.6) 05/11/23 10:12 Lipase 18 U/L (13-60) 05/11/23 10:12 Urine Color Yellow (Yellow) 05/11/23 09:58 Urine Appearance Clear (CLEAR) 05/11/23 09:58 Urine pH 6 (5-7) 05/11/23 09:58 Ur Specific [place] 1.015 (1.005-1.030) 05/11/23 09:58 Urine Protein Neg (Negative) 05/11/23 09:58 Urine Glucose (UA) Norm (Normal) 05/11/23 09:58 Urine Ketones Negative (Negative) 05/11/23 09:58 Urine Blood 2+ (Negative) H 05/11/23 09:58 Urine Nitrate Negative (Negative) 05/11/23 09:58 Urine Bilirubin Neg (Negative) 05/11/23 09:58 Urine Urobilinogen 1 mg/dL (Negative) H 05/11/23 09:58 Ur Leukocyte Esterase Negative (Negative) 05/11/23 09:58 Urine RBC 5-10 /hpf (0-2) H 05/11/23 09:58 Urine WBC None /hpf (0-5) 05/11/23 09:58 Ur Squamous Epith Cells 0-4 /hpf (0-5) H 05/11/23 09:58 Amorphous Sediment Not Reportable 05/11/23 09:58 Urine Bacteria Trace /hpf (NONE) 05/11/23 09:58 Urine Mucus 1+ /hpf 05/11/23 09:58 Discharge Plan Discharge Patient Disposition: Home Clinical Impression: Abdominal pain, Gastroenteritis Condition: Stable Prescriptions: New dicyclomine 10 mg capsule 10 mg PO .QID prn Qty: 20 0RF ondansetron 4 mg tablet,disintegrating 4 mg PO Q8H PRN (Reason: nausea and vomiting) Qty: 20 0RF No Action lisinopril 10 mg tablet 10 mg PO DAILY Humira 40 mg/0.8 mL syringe kit 40 mg SUBCUT .Q 7 DAYS Rx Instructions: SATURDAY acetaminophen [Tylenol] 325 mg tablet 325 mg PO QID PRN (Reason: Pain) ibuprofen 200 mg tablet 200 mg PO Q6H PRN (Reason: Pain) ascorbic acid (vitamin C) 500 mg capsule 50 mg PO DAILY topiramate [Topamax] 100 mg tablet 100 mg PO DAILY Qty: 90 0RF methotrexate sodium 2.5 mg tablet See Rx Instructions PO .Q7days Qty: 30 3RF Rx Instructions: take 6 tabs on same day once a week PO .Q7; SATURDAY Discharge Orders: Discharge ED (Routine); Ordered 05/11/23 Ordered By: Shlomo Murphy Referrals: Briana Dumas DO [Primary Care Provider] - Discharge Diet: Advance as tolerated Discharge Activity: Increase activity as tolerated Patient Instructions: Gastroenteritis (ED), Abdominal Pain (ED) Activity Restrictions/Additional Instructions: Medications as prescribed Begin with clear liquids and slowly increase your diet as you can tolerate it Follow-up with primary care, call Saturday with an update of symptoms and to discuss a recheck Return to the emergency department if any rapid worsening symptoms, onset of fever associated with worsening, and as needed Coding Level of Care Code ED Financial Recording Clerk for Jessica Cassidy
[2023-05-11] MEDS: ondansetron 2 mg/ML SDV 2 mL 4 MG IVP (10:15)
[2023-05-11 10:26] LABS: Basophils % 0.2 %; Eosinophils # 0.2 10^3/uL (0.0-0.8); Eosinophils % 1.1 %; Hematocrit 47.7 % (36-47); Lymphocytes # 4.1 10^3/uL (0.8-4.8); Lymphocytes % 31.2 %; Mean Corpuscular HGB Conc 33.3 g/dL (30-55); Mean Corpuscular Hemoglobin 31.7 pg (27-33); Mean Platelet Volume 10.6 fL (7.4-10.4); Monocytes # 0.6 10^3/uL (0.2-0.9); Monocytes % 4.5 %; Neutrophils # 8.28 10^3/uL (1.8-7.7); Neutrophils % 62.6 %; Nucleated Red Blood Cells % 0 %; Platelet Count 227 10^3/cmm (157-399); Red Blood Count 5.02 10^6/uL (3.85-5.65); Red Cell Distribution Width 12.9 % (12.1-15.1); White Blood Count 13.22 10^3/uL (3.29-11.43)
[2023-05-11 10:32] LABS: Bilirubin Urine Neg (Negative); Blood Urine 2+ (Negative); Glucose Urine UA Norm (Normal); Ketones Urine Negative (Negative); Leukocyte Esterase Urine Negative (Negative); Nitrate Urine Negative (Negative); Protein Urine Neg (Negative); Specific Gravity, Urine 1.015 (1.005-1.030); Urine Appearance Clear (CLEAR); Urine Color Yellow (Yellow); Urobilinogen Urine 1 mg/dL (Negative); pH Urine 6 (5-7)
[2023-05-11 10:33] LABS: Add Urine Microscopic? YES
[2023-05-11 10:34] LABS: Alanine Aminotransferase 18 U/L (0-33); Albumin Level 3.7 g/dL (3.5-5.2); Alkaline Phosphatase 84 U/L (35-105); Anion Gap 11.8 (5-19); Aspartate Amino Transferase 14 U/L (0-32); Blood Urea Nitrogen 9 mg/dL (6-20); Calcium 8.5 mg/dL (8.5-10.5); Carbon Dioxide 25 mmol/L (22-29); Chloride 99 mmol/L (98-107); Globulin 3.7 g/dL (1.3-4.6); Glomerular Filtration Rate 95.2 mL/min (90-130); Glucose 108 mg/dL (65-115); Lipase 18 U/L (13-60); Osmolality Calculated 273 mOsm/kg (285-295); Potassium 3.8 mmol/L (3.5-5.1); Sodium 132 mmol/L (136-145); Total Bilirubin 0.5 mg/dL (0.15-1.2); Total Protein 7.4 g/dL (6.6-8.7)
[2023-05-11 10:34] LABS: Squamous Epithelial Cell Urine 0-4 /hpf (0-5)
[2023-05-11 10:36] LABS: Add Urine Culture? No; Bacteria Urine TRACE /hpf; Mucus Urine 1+ /hpf
[2023-05-11 11:15] LABS: Slide Review Slide Review Perform
--- NOTE | 2023-05-11 11:23 | CTR_ITS ---
PROCEDURE INFORMATION: Exam: CT Abdomen And Pelvis With Contrast Exam date and time: 05/11/2023 11:53 AM Age: 33 years old Clinical indication: Abdominal pain; Epigastric; Prior surgery; Surgery date: 6+ months; Surgery type: Gb appy hysto; Additional info: Upper abd pain, vomiting TECHNIQUE: Imaging protocol: Computed tomography of the abdomen and pelvis with contrast. Radiation optimization: All CT scans at this facility use at least one of these dose optimization techniques: automated exposure control; mA and/or kV adjustment per patient size (includes targeted exams where dose is matched to clinical indication); or iterative reconstruction. Contrast material: OMNI 350; Contrast volume: 100 ml; Contrast route: INTRAVENOUS (IV); REPORTING DATA: Count of CT and Cardiac NM exams in prior 12 months: This patient has received 3 known CTs and 0 known cardiac nuclear medicine studies in the 12 months prior to the current study. COMPARISON: CT abdomen pelvis w con* [id number] 02/25/2023 7:[address] abdomen pelvis performed December 2022 RADIATION DOSE METRICS: Total DLP (mGy-cm): 1353.37 FINDINGS: Lungs: Lung bases are clear. Liver: Liver is enlarged with mild fatty infiltration, unchanged. Gallbladder and bile ducts: Gallbladder has been removed. Bile ducts are not appreciably dilated. Pancreas: Unremarkable. Main pancreatic duct is not significantly dilated. Spleen: Normal. No splenomegaly. Adrenal glands: 1.8 cm left adrenal lesion, unchanged with density readings on prior noncontrast CT consistent with benign adenoma. Right adrenal gland is unremarkable. Kidneys and ureters: Kidneys are unremarkable. No calculi or hydronephrosis detected. Stomach and bowel: Few scattered diverticula sigmoid colon. No evidence of acute diverticulitis. Appendix: Appendix has been removed. Intraperitoneal space: Unremarkable. No free air. No significant fluid collection. Vasculature: Unremarkable. No abdominal aortic aneurysm. Lymph nodes: Unremarkable. No enlarged lymph nodes. Urinary bladder: Unremarkable as visualized. Reproductive: Uterus has been removed. Small left ovarian cyst presumed functional in nature. Bones/joints: Unremarkable. No acute fracture. Soft tissues: Mild diastasis of the lower abdominal wall, stable. CT/CT abdomen pelvis w con* [id number] IMPRESSION: 1. No acute findings within the abdomen or pelvis. 2. Hepatomegaly with fatty infiltration unchanged.
[2023-05-11] MEDS: iohexol 350 mg/mL 500 mL Btl (per mL) IV (11:56)
[2023-05-11] MEDS: dicyclomine 20 mg Tablet PO (13:29)
== END 2023-05-11 13:35 | disposition home or self-care (01) ==
PROVIDERS: Emergency Provider Nurse Practitioner; PCP Family Medicine
DX: K52.9 Noninfective gastroenteritis and colitis, unspecified (principal)
CPT/HCPCS: 74018; 74177; 80053; 81001; 83690; 85025; 96374; 99285; J2405; Q9967

== ENCOUNTER 2023-08-28 07:40 | Emergency (ER) | payer MEDICAID, SELFPAY ==
[2023-08-28 07:47] VITALS: BP 148/107; PULSE 86; RESP 18; TEMP 36.4; O2SAT 99; BMI 51.7
--- NOTE | 2023-08-28 08:04 | CT_ITS ---
WS: [id number] CT ABDOMEN PELVIS TECHNIQUE: Noncontrast CT of the abdomen and pelvis with coronal and sagittal reformatted images. CLINICAL INFORMATION: Abdominal pain COMPARISON: CT 05/11/2023 DLP: 1949.[address] scans at [facility] use at least one of these dose optimization techniques: automated e xposure control; mA and/or kV adjustment per patient size (includes targeted exams where dose is matc hed to clinical indication); or iterative reconstruction. FINDINGS: Prior hysterectomy. Prior cholecystectomy. Mild hepatomegaly with enlargement RIGHT hepatic lobe. Sheree g bases are well aerated. Noncontrast spleen is normal. Normal GE junction. LEFT adrenal adenoma. RIGHT adrenal gland is normal. Noncontrast pancreas appears normal. No hydronep hrosis in either kidney. No obstructing renal or ureteral calculi. Sigmoid diverticulosis. No evidence of acute diverticulitis. No evidence of high-grade small or large bowel obstruction. Prior appendectomy. No abdominal lymphadenopathy. Small fat-containing umbilical hernia. IMPRESSION: 1. Mild hepatomegaly. 2. Sigmoid diverticulosis. No evidence of acute diverticulitis. 3. No hydronephrosis in either kidney. No obstructing renal or ureteral calculi. 4. Prior cholecystectomy with hysterectomy. 5. Prior appendectomy. 6. Small LEFT adrenal adenoma measuring 12 mm. 7. No other suspicious findings.
--- NOTE | 2023-08-28 08:06 | ED_ITS ---
HPI - Nausea/Vomiting/Diarrhea 2 General: Chief complaint: Nausea/Vomiting/Diarrhea Stated complaint: abd pain,NVD Time Seen by Provider: 08/28/23 07:48 Source: patient Mode of arrival: ambulatory History of Present Illness: 33-year-old female presents emergency ro om with complaint of abdominal discomfort with some nausea vomiting and diarrhea she states for the last 2 weeks every time she eats or drinks anything she gets sick has diarrhea and vomiting. At times states she will have up to 10 loose stools per day she has been seen by her primary care doctors and was started on Zithromax for leukocyte ptosis she is unsure of the specific infection at that time she is completed a course of Zithromax and states she had a follow-up visit for repeat white count. She is on Humira for rheumatoid arthritis she denies any fever sweats or chills recently. A little over a month ago she was on a course of doxycycline after excision of an inflammatory cyst on her left cheek. She denies any hematemesis coffee-ground emesis hematochezia melena. Denies any hematuria. Mild epigastric discomfort that is made worse by eating. In the past she did have some mild NSAID induced gastritis shown on an EGD but did not require any transfusion does not have a significant upper GI bleed. Has no known history of any irritable bowel or auto inflammatory bowel disease. MD elicited complaint: nausea, vomiting, diarrhea and abdominal pain Onset (ago): week(s) (2) Description of vomiting: food contents and watery Description of diarrhea: semi-solid Associated nausea: Yes Associated abdominal pain: Yes Location of pain: Epigastric Pain consistency: constant Severity: mild Quality: cramping Exacerbating factors: none Relieving factors: none Associated symtoms: Reports bloating, anorexia and nausea; Denies altered mental status, anxiety, change in vision, chest pain, cough, diaphoresis, decreased urine output, dizziness, dysuria, epistaxis, fatigue, fecal incontinence, fevers/chills, headache(s), malaise, myalgias, numbness, palpitations, rash, short of breath, syncope, tenesmus, tinnitus or weakness Review of Systems 2 Const: Denies: fever(s), chills, fatigue, malaise or diaphoresis Eyes: Denies: change in vision ENMT: Denies: tinnitus or epistaxis Card: Denies: chest pain, palpitations or syncope Resp: Denies: dyspnea GI: Reports: abdominal pain, nausea, vomiting, diarrhea and bloating; Denies: hematemesis, coffee ground emesis, fecal incontinence, hematochezia or melena : Denies: dysuria, urinary frequency or urinary urgency Musc: Denies: neck pain or back pain Skin/Breast: Denies: rash Neuro: Denies: headache(s) or dizziness Psych: Denies: anxiety PFSH ED 2 PFSH: Medical History Immunization counseling High risk medication use Positive LOKESH (antinuclear antibody) Inflammatory arthritis Epidermoid cyst of face surgically removed Anxiety Depression Stomach ulcer No pertinent past medical history Surgical History H/O tubal ligation History of cholecystectomy History of appendectomy History of delivery History of hysterectomy History of tonsillectomy Family History Mother Colon cancer Diabetes Hyperlipidemia Hypertension Stroke Heart disease Father Diabetes Hypertension Thyroid disease Denies family history of Clotting disorder Chronic kidney disease (CKD) Bleeding disorder Social History Substance/Drug Use: never Physical Exam 2 Const: EXAM LIMITATIONS: no altered mental status GENERAL APPEARANCE: c ooperative and comfortable ORIENTATION/CONSCIOUSNESS: Yes awake, Yes oriented to person, Yes oriented to place and Yes oriented to time HENMT: COMMON NORMALS: normocephalic, atraumatic and hearing grossly normal bilaterally HEAD & SCALP: normocephalic and atraumatic Resp: COMMON NORMALS: normal respiratory effort, No retractions, No use of accessory muscles and clear to auscultation bilaterally AUSCULTATION: clear to auscultation bilaterally Cardio: COMMON NORMALS: regular rate, regular rhythm and No murmurs present (Cardio) RATE: regular rate RHYTHM: regular rhythm GI: COMMON NORMALS: No hepatosplenomegaly present AUSCULTATION: Yes normoactive bowel sounds PALPATION: Yes Tenderness to palpation present (GI) (Epigastric), No Guarding due to palpation present (GI) and Yes No hepatosplenomegaly present Extremity: COMMON NORMALS: normal to inspection, capillary refill normal, no clubbing, cyanosis or edema, no calf tenderness and no pedal edema Neuro: SENSORIUM/ORIENTATION: Yes oriented to person, Yes oriented to place and Yes oriented to time Skin: COMMON NORMALS: no rashes or lesions noted GENERAL SKIN EXAM: no rashes or lesions noted Course 2 Vital Signs: Vital signs: Vital Signs Temperature 97.5 F L 08/28/23 07:47 Pulse Rate 73 08/28/23 10:00 Respiratory Rate 16 08/28/23 10:00 Blood Pressure 109/81 08/28/23 10:00 Pulse Oximetry 99 08/28/23 10:00 Oxygen Delivery Me thod Room Air 08/28/23 10:00 MDM - Nausea/Vomiting/Diarrhea Medical Decision Making Labs and imaging reviewed no acute findings. Will discharge patient home clinical diet 24 to 48 hours start Protonix 40 mg daily and use ondansetron as needed for nausea vomiting symptoms persist follow-up with primary care may need repeat EGD or further testing on outpatient basis Medical Records I reviewed the patient's medical records. Lab Data I reviewed the patient's lab results. 08/28/23 08:06 08/28/23 08:06 Laboratory Results WBC 12.54 10^3/uL (3.29-11.43) H 08/28/23 08:06 RBC 4.74 10^6/uL (3.85-5.65) 08/28/23 08:06 Hgb 15.30 g/dL (11.27-16.99) 08/28/23 08:06 Hct 45.7 % (36-47) 08/28/23 08:06 MCV 96.4 fl (85-98) 08/28/23 08:06 MCH 32.3 pg (27-33) 08/28/23 08:06 MCHC 33.5 g/dL (30-55) 08/28/23 08:06 RDW 12.6 % (12.1-15.1) 08/28/23 08:06 Plt Count 228 10^3/cmm (157-399) 08/28/23 08:06 MPV 10.0 fL (7.4-10.4) 08/28/23 08:06 Neut % (Auto) 70.7 % 08/28/23 08:06 Lymph % (Auto) 23.4 % 08/28/23 08:06 [place] % (Auto) 4.4 % 08/28/23 08:06 Eos % (Auto) 1.1 % 08/28/23 08:06 Baso % (Auto) 0.2 % 08/28/23 08:06 Neut # (Auto) 8.86 10^3/uL (1.8-7.7) H 08/28/23 08:06 Lymph # (Auto) 2.9 10^3/uL (0.8-4.8) 08/28/23 08:06 [place] # (Auto) 0.6 10^3/uL (0.2-0.9) 08/28/23 08:06 Eos # (Auto) 0.1 10^3/uL (0.0-0.8) 08/28/23 08:06 Baso # (Auto) 0.0 10^3/uL (0.0-0.1) 08/28/23 08:06 Nucleated RBC % (auto) 0 % 08/28/23 08:06 Nucleated RBCs # 0.0 /100WBC 08/28/23 08:06 Sodium 137 mmol/L (136-145) 08/28/23 08:06 Potassium 4.4 mmol/L (3.5-5.1) 08/28/23 08:06 Chloride 103 mmol/L (98-107) 08/28/23 08:06 Carbon Dioxide 26 mmol/L (22-29) 08/28/23 08:06 Anion Gap 12.4 (5-19) 08/28/23 08:06 BUN 9 mg/dL (6-20) 08/28/23 08:06 Creatinine 0.7 mg/dL (0.5-0.9) 08/28/23 08:06 GFR Calculation 95.2 mL/min (90-130) 08/28/23 08:06 Glucose 103 mg/dL (65-115) 08/28/23 08:06 Calculated Osmolality 283 mOsm/kg (285-295) L 08/28/23 08:06 Calcium 8.9 mg/dL (8.5-10.5) 08/28/23 08:06 Total Bilirubin 0.5 mg/dL (0.15-1.2) 08/28/23 08:06 AST 15 U/L (0-32) 08/28/23 08:06 ALT 21 U/L (0-33) 08/28/23 08:06 Alkaline Phosphatase 95 U/L (35-105) 08/28/23 08:06 Total Protein 7.1 g/dL (6.6-8.7) 08/28/23 08:06 Albumin 3.6 g/dL (3.5-5.2) 08/28/23 08:06 Globulin 3.5 g/dL (1.3-4.6) 08/28/23 08:06 Lipase 17 U/L (13-60) 08/28/23 08:06 Urine Color Dark yellow (Yellow) 08/28/23 11:00 Urine Appearance Clear (CLEAR) 08/28/23 11:00 Urine pH 5 (5-7) 08/28/23 11:00 Ur Specific [place] 1.025 (1.005-1.030) 08/28/23 11:00 Urine Protein Neg (Negative) 08/28/23 11:00 Urine Glucose (UA) Norm (Normal) 08/28/23 11:00 Urine Ketones Negative (Negative) 08/28/23 11:00 Urine Blood 2+ (Negative) H 08/28/23 11:00 Urine Nitrate Negative (Negative) 08/28/23 11:00 Urine Bilirubin Neg (Negative) 08/28/23 11:00 Urine Urobilinogen Norm mg/dL (Negative) 08/28/23 11:00 Ur Leukocyte Esterase Negative (Negative) 08/28/23 11:00 Urine RBC 5-10 /hpf (0-2) H 08/28/23 11:00 Urine WBC 0-4 /hpf (0-5) H 08/28/23 11:00 Ur Squamous Epith Cells 0-4 /hpf (0-5) H 08/28/23 11:00 Other Crystals Leucine trace /hpf 08/28/23 11:00 Amorphous Sediment Trace /hpf 08/28/23 11:00 Urine Bacteria Trace /hpf (NONE) 08/28/23 11:00 Urine Mucus 2+ /hpf 08/28/23 11:00 All radiology interpretation(s) finalized by discharge Discharge Plan Discharge Patient Disposition: Home Clinical Impression: Nausea and vomiting Condition: Stable Prescriptions: New ondansetron HCl 4 mg tablet 4 mg PO Q6H PRN (Reason: nausea and vomiting) Qty: 20 0RF pantoprazole 40 mg tablet,delayed release (DR/EC) 40 mg PO DAILY Qty: 30 0RF No Action Humira 40 mg/0.8 mL syringe kit 40 mg SUBCUT Q7D Rx Instructions: SATURDAY acetaminophen [Tylenol] 325 mg tablet 325 mg PO QID PRN (Reason: Pain) ibuprofen 200 mg tablet 400 mg PO Q6H PRN (Reason: Pain) ascorbic acid (vitamin C) 500 mg capsule 50 mg PO DAILY Discharge Orders: Discharge ED (Routine); Ordered 08/28/23 Ordered By: Raghu Mcleod Referrals: Briana Dumas, [Primary Care Provider] - Discharge Diet: Clear Liquid Discharge Activity: Increase activity as tolerated Patient Instructions: Opioid Safety, Pain Management Activity Restrictions/Additional Instructions: Thank you for choosing [facility] for your healthcare needs today. Please realize this is an emergency room and that we are providing you with a medical screening exam and this may not be complete and all inclusive of all the testing and or work up that you may need to determine your ailment or severity of your illness. It is very important that you follow up as instructed or that you return to the Emergency Department should you have concerns or if your condition changes or worsens in any way. You are seen today for complaints of persistent abdominal discomfort and nausea and vomiting. CT was unremarkable laboratory test did not show any clinically significant abnormalities. Recommend use ondansetron as needed start pantoprazole 40 mg daily and follow-up with your primary care doctor if not improving may need further evaluation. Coding Level of Care Code ED Graphic Design Intern for Jessica Cassidy
[2023-08-28 08:12] LABS: Basophils % 0.2 %; Eosinophils # 0.1 10^3/uL (0.0-0.8); Eosinophils % 1.1 %; Hematocrit 45.7 % (36-47); Lymphocytes # 2.9 10^3/uL (0.8-4.8); Lymphocytes % 23.4 %; Mean Corpuscular HGB Conc 33.5 g/dL (30-55); Mean Corpuscular Hemoglobin 32.3 pg (27-33); Mean Corpuscular Volume 96.4 fl (85-98); Monocytes # 0.6 10^3/uL (0.2-0.9); Monocytes % 4.4 %; Neutrophils # 8.86 10^3/uL (1.8-7.7); Neutrophils % 70.7 %; Nucleated Red Blood Cells % 0 %; Platelet Count 228 10^3/cmm (157-399); Red Blood Count 4.74 10^6/uL (3.85-5.65); Red Cell Distribution Width 12.6 % (12.1-15.1); White Blood Count 12.54 10^3/uL (3.29-11.43)
[2023-08-28 08:28] LABS: Alanine Aminotransferase 21 U/L (0-33); Albumin Level 3.6 g/dL (3.5-5.2); Alkaline Phosphatase 95 U/L (35-105); Anion Gap 12.4 (5-19); Aspartate Amino Transferase 15 U/L (0-32); Blood Urea Nitrogen 9 mg/dL (6-20); Calcium 8.9 mg/dL (8.5-10.5); Carbon Dioxide 26 mmol/L (22-29); Chloride 103 mmol/L (98-107); Globulin 3.5 g/dL (1.3-4.6); Glomerular Filtration Rate 95.2 mL/min (90-130); Glucose 103 mg/dL (65-115); Lipase 17 U/L (13-60); Osmolality Calculated 283 mOsm/kg (285-295); Potassium 4.4 mmol/L (3.5-5.1); Sodium 137 mmol/L (136-145); Total Bilirubin 0.5 mg/dL (0.15-1.2); Total Protein 7.1 g/dL (6.6-8.7)
[2023-08-28] MEDS: ondansetron 2 mg/ML SDV 2 mL 4 MG IVP (09:11)
[2023-08-28] MEDS: sodium chloride 0.9% 1,000 ML 999 ML IV (09:11)
[2023-08-28 10:00] VITALS: BP 109/81; PULSE 73; RESP 16; O2SAT 99
[2023-08-28 11:16] LABS: Add Urine Microscopic? YES; Bilirubin Urine Neg (Negative); Blood Urine 2+ (Negative); Glucose Urine UA Norm (Normal); Ketones Urine Negative (Negative); Leukocyte Esterase Urine Negative (Negative); Nitrate Urine Negative (Negative); Protein Urine Neg (Negative); Specific Gravity, Urine 1.025 (1.005-1.030); Urine Appearance Clear (CLEAR); Urine Color Dark Yellow (Yellow); Urobilinogen Urine Norm (Negative); pH Urine 5 (5-7)
[2023-08-28 11:25] LABS: Add Urine Culture? No; Amorphous Sediment Urine TRACE /hpf; Bacteria Urine TRACE /hpf; Mucus Urine 2+ /hpf; Squamous Epithelial Cell Urine 0-4 /hpf (0-5); WBC Urine 0-4 /hpf (0-5)
== END 2023-08-28 11:43 | disposition home or self-care (01) ==
PROVIDERS: Emergency Provider Family Medicine; PCP Family Medicine
DX: R11.2 Nausea with vomiting, unspecified (principal)
CPT/HCPCS: 36415; 74176; 80053; 81001; 83690; 85025; 96361; 96374; 99285; J2405; J7030

== ENCOUNTER 2023-08-31 08:19 | Emergency (ER) | payer MEDICAID, SELFPAY ==
[2023-08-31 08:27] VITALS: BP 133/84; PULSE 85; RESP 16; TEMP 36.5; O2SAT 95; BMI 51.7
--- NOTE | 2023-08-31 08:40 | ED_ITS ---
HPI - Back Pain/Injury 2 General: Chief Complaint: Back Pain/Injury Stated Complaint: abd pain,N/V Time Seen by Provider: 08/31/23 08:33 Source: patient Mode of arrival: ambulatory Limitations: no limitations History of Present Illness: 33-year-old female states that over the last 4 days she has been having nausea abdominal pain along with painful urination she was seen here 2 days ago had blood work and a CT scan that were normal states she is had more difficulty with urination and pain denies any fevers. Associated symptoms: Reports abdominal pain, dysuria, nausea and vomiting; Deny chills or fever(s) Review of Systems 2 Const: Denies: fever(s), chills, body aches or change in appetite Eyes: Denies: blurry vision or eye discomfort ENMT: Denies: throat pain or dental pain Card: Denies: chest pain Resp: Denies: dyspnea GI: Reports: abdominal pain, nausea and vomiting; Denies: diarrhea : Reports: dysuria Musc: Denies: neck pain or back pain Skin/Breast: Denies: rash Neuro: Denies: headache(s) PFSH ED 2 PFSH: Medical History Immunization counseling High risk medication use Positive LOKESH (antinuclear antibody) Inflammatory arthritis Epidermoid cyst of face surgically removed Anxiety Depression Stomach ulcer No pertinent past medical history Surgical History H/O tubal ligation History of cholecystectomy History of appendectomy History of delivery History of hysterectomy History of tonsillectomy Family History Mother Colon cancer Diabetes Hyperlipidemia Hypertension Stroke Heart disease Father Diabetes Hypertension Thyroid disease Denies family history of Clotting disorder Chronic kidney disease (CKD) Bleeding disorder Social History Substance/Drug Use: never Physical Exam 2 Const: COMMON NORMALS: no acute distress, patient oriented x3 and healthy appearing HENMT: COMMON NORMALS: normocephalic and atraumatic HEAD & SCALP: n ormocephalic and atraumatic Eye: COMMON NORMALS: Equal, round and reactive pupils present and EOMs intact bilaterally PUPIL: Yes Equal, round and reactive pupils present Neck/C-Spine: COMMON NORMALS: full ROM and supple Chest: COMMONS NORMALS: normal inspection of the chest Resp: COMMON NORMALS: normal respiratory effort, No retractions, No use of accessory muscles and clear to auscultation bilaterally AUSCULTATION: clear to auscultation bilaterally Cardio: COMMON NORMALS: regular rate, regular rhythm and No murmurs present (Cardio) RATE: regular rate RHYTHM: regular rhythm GI: COMMON NORMALS: Normal to inspection, nondistended, normoactive bowel sounds present, Soft to palpation, non-tender and no masses PALPATION: Yes Soft to palpation Extremity: COMMON NORMALS: normal to inspection and full ROM Neuro: COMMON NORMALS: patient oriented x3, moves all extremities and no focal motor deficits Psych: COMMON NORMALS: mental status grossly normal, Normal thought process present and cooperative THOUGHT PROCESS: Normal thought process present Skin: COMMON NORMALS: no rashes or lesions noted and no wounds GENERAL SKIN EXAM: no rashes or lesions noted Course 2 Vital Signs: Vital signs: Vital Signs Temperature 97.7 F 08/31/23 08:27 Pulse Rate 78 08/31/23 08:53 Respiratory Rate 15 08/31/23 08:53 Blood Pressure 133/87 08/31/23 08:53 Pulse Oximetry 96 08/31/23 08:53 Oxygen Delivery Me thod Room Air 08/31/23 08:53 MDM - Back Pain/Injury Medical Decision Making Patient presents here with back pain along with dysuria blood work here is normal urinalysis normal she had a CT scan 2 days ago which showed no acute abnormality she feels improved she is well-appearing she is stable for discharge she is to follow-up with PCP and return if worsening. Medical Records I reviewed the patient's medical records. Labs I reviewed the patient's lab results. 08/31/23 08:43 08/31/23 08:43 Laboratory Results WBC 12.19 10^3/uL (3.29-11.43) H 08/31/23 08:43 RBC 4.96 10^6/uL (3.85-5.65) 08/31/23 08:43 Hgb 15.90 g/dL (11.27-16.99) 08/31/23 08:43 Hct 46.8 % (36-47) 08/31/23 08:43 MCV 94.4 fl (85-98) 08/31/23 08:43 MCH 32.1 pg (27-33) 08/31/23 08:43 MCHC 34.0 g/dL (30-55) 08/31/23 08:43 RDW 12.3 % (12.1-15.1) 08/31/23 08:43 Plt Count 240 10^3/cmm (157-399) 08/31/23 08:43 MPV 10.7 fL (7.4-10.4) H 08/31/23 08:43 Neut % (Auto) 56.7 % 08/31/23 08:43 Lymph % (Auto) 36.0 % 08/31/23 08:43 Major % (Auto) 4.7 % 08/31/23 08:43 Eos % (Auto) 2.0 % 08/31/23 08:43 Baso % (Auto) 0.4 % 08/31/23 08:43 Neut # (Auto) 6.91 10^3/uL (1.8-7.7) 08/31/23 08:43 Lymph # (Auto) 4.4 10^3/uL (0.8-4.8) 08/31/23 08:43 Major # (Auto) 0.6 10^3/uL (0.2-0.9) 08/31/23 08:43 Eos # (Auto) 0.2 10^3/uL (0.0-0.8) 08/31/23 08:43 Baso # (Auto) 0.1 10^3/uL (0.0-0.1) 08/31/23 08:43 Nucleated RBC % (auto) 0 % 08/31/23 08:43 Nucleated RBCs # 0.0 /100WBC 08/31/23 08:43 Sodium 139 mmol/L (136-145) 08/31/23 08:43 Potassium 3.5 mmol/L (3.5-5.1) 08/31/23 08:43 Chloride 104 mmol/L (98-107) 08/31/23 08:43 Carbon Dioxide 25 mmol/L (22-29) 08/31/23 08:43 Anion Gap 13.5 (5-19) 08/31/23 08:43 BUN 10 mg/dL (6-20) 08/31/23 08:43 Creatinine 0.7 mg/dL (0.5-0.9) 08/31/23 08:43 GFR Calculation 95.2 mL/min (90-130) 08/31/23 08:43 Glucose 93 mg/dL (65-115) 08/31/23 08:43 Calculated Osmolality 287 mOsm/kg (285-295) 08/31/23 08:43 Calcium 8.8 mg/dL (8.5-10.5) 08/31/23 08:43 Total Bilirubin 0.8 mg/dL (0.15-1.2) 08/31/23 08:43 AST 20 U/L (0-32) 08/31/23 08:43 ALT 29 U/L (0-33) 08/31/23 08:43 Alkaline Phosphatase 98 U/L (35-105) 08/31/23 08:43 Total Protein 7.5 g/dL (6.6-8.7) 08/31/23 08:43 Albumin 3.7 g/dL (3.5-5.2) 08/31/23 08:43 Globulin 3.8 g/dL (1.3-4.6) 08/31/23 08:43 Lipase 14 U/L (13-60) 08/31/23 08:43 HCG, Qual Negative (Negative) 08/31/23 08:43 Urine Color Dark yellow (Yellow) 08/31/23 08:53 Urine Appearance Hazy (CLEAR) A 08/31/23 08:53 Urine pH 7 (5-7) 08/31/23 08:53 Ur Specific [place] 1.010 (1.005-1.030) 08/31/23 08:53 Urine Protein Neg (Negative) 08/31/23 08:53 Urine Glucose (UA) Norm (Normal) 08/31/23 08:53 Urine Ketones Negative (Negative) 08/31/23 08:53 Urine Blood 2+ (Negative) H 08/31/23 08:53 Urine Nitrate Negative (Negative) 08/31/23 08:53 Urine Bilirubin Neg (Negative) 08/31/23 08:53 Urine Urobilinogen 1 mg/dL (Negative) H 08/31/23 08:53 Ur Leukocyte Esterase Negative (Negative) 08/31/23 08:53 Urine RBC 5-10 /hpf (0-2) H 08/31/23 08:53 Urine WBC None /hpf (0-5) 08/31/23 08:53 Ur Squamous Epith Cells 15-25 /hpf (0-5) H 08/31/23 08:53 Amorphous Sediment Not Reportable 08/31/23 08:53 Urine Bacteria 1+ /hpf (NONE) H 08/31/23 08:53 No radiology studies performed this visit Discharge Plan Discharge Patient Disposition: Home Clinical Impression: Dysuria Abdominal pain Qualifiers: Abdominal location: unspecified location Qualified Code(s): R10.9 - Unspecified abdominal pain Condition: Stable Prescriptions: New ondansetron 4 mg tablet,disintegrating 4 mg PO Q6H PRN (Reason: nausea and vomiting) Qty: 14 0RF Naprosyn 500 mg tablet 500 mg PO BID PRN (Reason: pain) Qty: 20 0RF No Action Humira 40 mg/0.8 mL syringe kit 40 mg SUBCUT Q7D Rx Instructions: SATURDAY acetaminophen [Tylenol] 325 mg tablet 325 mg PO QID PRN (Reason: Pain) ibuprofen 200 mg tablet 400 mg PO Q6H PRN (Reason: Pain) ascorbic acid (vitamin C) 500 mg capsule 50 mg PO DAILY ondansetron HCl 4 mg tablet 4 mg PO Q6H PRN (Reason: nausea and vomiting) Qty: 20 0RF Discharge Orders: Discharge ED (Routine); Ordered 08/31/23 Ordered By: Brian Pate Referrals: Briana Dumas DO [Primary Care Provider] - 1-3 days Discharge Diet: Advance as tolerated Discharge Activity: Resume usual activity Patient Instructions: Dysuria (ED), Abdominal Pain (ED) Coding Level of Care Code ED Motor Transport Inspector for Jessica Cassidy
[2023-08-31 08:45] VITALS: RESP 18; O2SAT 96
[2023-08-31] MEDS: morphine 4 mg/mL SDV 1 mL IVP (08:45)
[2023-08-31] MEDS: ondansetron 2 mg/ML SDV 2 mL 4 MG IVP (08:45)
[2023-08-31] MEDS: sodium chloride 0.9% 1,000 ML 999 ML IV (08:48)
[2023-08-31 08:53] VITALS: BP 133/87; PULSE 78; RESP 15; O2SAT 96
[2023-08-31 09:17] LABS: Basophils # 0.1 10^3/uL (0.0-0.1); Basophils % 0.4 %; Eosinophils # 0.2 10^3/uL (0.0-0.8); Hematocrit 46.8 % (36-47); Lymphocytes # 4.4 10^3/uL (0.8-4.8); Mean Corpuscular Hemoglobin 32.1 pg (27-33); Mean Corpuscular Volume 94.4 fl (85-98); Mean Platelet Volume 10.7 fL (7.4-10.4); Monocytes # 0.6 10^3/uL (0.2-0.9); Monocytes % 4.7 %; Neutrophils # 6.91 10^3/uL (1.8-7.7); Neutrophils % 56.7 %; Nucleated Red Blood Cells % 0 %; Platelet Count 240 10^3/cmm (157-399); Red Blood Count 4.96 10^6/uL (3.85-5.65); Red Cell Distribution Width 12.3 % (12.1-15.1); White Blood Count 12.19 10^3/uL (3.29-11.43)
[2023-08-31 09:51] LABS: HCG, Serum Qual Negative (Negative)
[2023-08-31 09:59] LABS: Alanine Aminotransferase 29 U/L (0-33); Albumin Level 3.7 g/dL (3.5-5.2); Alkaline Phosphatase 98 U/L (35-105); Anion Gap 13.5 (5-19); Aspartate Amino Transferase 20 U/L (0-32); Blood Urea Nitrogen 10 mg/dL (6-20); Calcium 8.8 mg/dL (8.5-10.5); Carbon Dioxide 25 mmol/L (22-29); Chloride 104 mmol/L (98-107); Globulin 3.8 g/dL (1.3-4.6); Glomerular Filtration Rate 95.2 mL/min (90-130); Glucose 93 mg/dL (65-115); Lipase 14 U/L (13-60); Osmolality Calculated 287 mOsm/kg (285-295); Potassium 3.5 mmol/L (3.5-5.1); Sodium 139 mmol/L (136-145); Total Bilirubin 0.8 mg/dL (0.15-1.2); Total Protein 7.5 g/dL (6.6-8.7)
[2023-08-31 11:15] LABS: Add Urine Microscopic? YES; Bilirubin Urine Neg (Negative); Blood Urine 2+ (Negative); Glucose Urine UA Norm (Normal); Ketones Urine Negative (Negative); Leukocyte Esterase Urine Negative (Negative); Nitrate Urine Negative (Negative); Protein Urine Neg (Negative); Squamous Epithelial Cell Urine 15-25 /hpf (0-5); Urine Appearance Hazy (CLEAR); Urine Color Dark Yellow (Yellow); Urobilinogen Urine 1 mg/dL (Negative); pH Urine 7 (5-7)
[2023-08-31 11:16] LABS: Add Urine Culture? No; Bacteria Urine 1+ /hpf
[2023-08-31 11:43] VITALS: BP 136/69; PULSE 59; RESP 14; O2SAT 97
== END 2023-08-31 11:47 | disposition home or self-care (01) ==
PROVIDERS: Emergency Provider Emergency Medicine; PCP Family Medicine
DX: R30.0 Dysuria (principal); R10.9 Unspecified abdominal pain
CPT/HCPCS: 80053; 81001; 83690; 84703; 85025; 96374; 96375; 99284; J2270; J2405; J7030

== ENCOUNTER 2023-10-10 23:17 | Emergency (ER) | payer MEDICAID, SELFPAY ==
[2023-10-10 23:29] VITALS: BP 186/104; PULSE 86; RESP 18; TEMP 36.6; O2SAT 97
[2023-10-11 00:02] LABS: Add Urine Culture? No; Add Urine Microscopic? YES; Bilirubin Urine Neg (Negative); Blood Urine 2+ (Negative); Glucose Urine UA Norm (Normal); Ketones Urine Negative (Negative); Leukocyte Esterase Urine Negative (Negative); Nitrate Urine Negative (Negative); Protein Urine Neg (Negative); RBC Urine 0-4 /hpf (0-2); Specific Gravity, Urine 1.015 (1.005-1.030); Urine Appearance Clear (CLEAR); Urine Color Yellow (Yellow); Urobilinogen Urine Neg (Negative); pH Urine 6 (5-7)
[2023-10-11 00:22] LABS: Alanine Aminotransferase 24 U/L (0-33); Albumin Level 3.7 g/dL (3.5-5.2); Alkaline Phosphatase 92 U/L (35-105); Anion Gap 12.9 (5-19); Aspartate Amino Transferase 18 U/L (0-32); Blood Urea Nitrogen 12 mg/dL (6-20); Calcium 9.5 mg/dL (8.5-10.5); Carbon Dioxide 27 mmol/L (22-29); Chloride 102 mmol/L (98-107); Globulin 3.9 g/dL (1.3-4.6); Glomerular Filtration Rate 95.2 mL/min (90-130); Glucose 94 mg/dL (65-115); Lipase 19 U/L (13-60); Osmolality Calculated 286 mOsm/kg (285-295); Potassium 3.9 mmol/L (3.5-5.1); Sodium 138 mmol/L (136-145); Total Bilirubin 0.3 mg/dL (0.15-1.2); Total Protein 7.6 g/dL (6.6-8.7)
--- NOTE | 2023-10-11 00:30 | XRR_ITS ---
PROCEDURE INFORMATION: Exam: XR Abdomen Exam date and time: 10/11/2023 12:35 AM Age: 33 years old Clinical indication: Abdominal pain; Prior surgery; Surgery date: 6+ months; Surgery type: Gb/appy/hyst/csection; Patient HX: Patient having left flank pain and left pelvic pain. Says it hurts to urinate; Additional info: Llq abd pain TECHNIQUE: Imaging protocol: Radiologic exam of the abdomen. Views: Frontal supine view of the abdomen. 1 View. COMPARISON: CT abdomen pelvis con [id number] 08/28/2023 9:05 AM FINDINGS: Gastrointestinal tract: Normal. No bowel dilation. Bones/joints: Unremarkable. XR/XR KUB [id number] IMPRESSION: No acute findings.
--- NOTE | 2023-10-11 00:32 | ED_ITS ---
HPI - Back Pain/Injury 2 General: Chief Complaint: Back Pain/Injury Stated Complaint: ABD Pain Time Seen by Provider: 10/10/23 23:49 History of Present Illness: Patient presents to the ER with complaints of left lower quadrant abdominal pain that radiates to her groin. This pain started couple days ago and got worsened today. Patient is having nausea and vomiting with it. Patient is been worked up in the ER several times for abdominal pain and has had lab work, x-rays and CTs done. Patient states this is little different than her normal pain but cannot describe how different. Review of Systems 2 General: Reports: 10 or more systems reviewed and unremarkable except in HPI and below PFSH ED 2 PFSH: Medical History Immunization counseling High risk medication use Positive LOKESH (antinuclear antibody) Inflammatory arthritis Epidermoid cyst of face surgically removed Anxiety Depression Stomach ulcer No pertinent past medical history Surgical History H/O tubal ligation History of cholecystectomy History of appendectomy History of delivery History of hysterectomy History of tonsillectomy Family History Mother Colon cancer Diabetes Hyperlipidemia Hypertension Stroke Heart disease Father Diabetes Hypertension Thyroid disease Denies family history of Clotting disorder Chronic kidney disease (CKD) Bleeding disorder Social History Substance/Drug Use: never Physical Exam 2 Const: COMMON NORMALS: no acute distress, average body habitus, patient oriented x3, no limitations, healthy appearing, alert and well nourished HENMT: COMMON NORMALS: normocephalic, atraumatic, hearing grossly normal bilaterally, external ears normal, EAC's normal, Normal external nose present, moist oral mucous membranes and oropharynx normal HEAD & SCALP: normocephalic and atraumatic NOSE: Normal external nose present EXTERNAL EAR: Yes external ears normal EXTERNAL AUDITORY CANAL: EAC's normal Neck/C-Spine: COMMON NORMALS: no JVD Chest: COMMONS NORMALS: normal inspection of the chest and normal palpation of entire chest wall Resp: COMMON NORMALS: normal respiratory effort, No retractions, No use of accessory muscles and clear to auscultation bilaterally AUSCULTATION: clear to auscultation bilaterally Cardio: COMMON NORMALS: no JVD, regular rate, regular rhythm, S1 normal heart sound present, S2 normal heart sound present, No gallops present (Cardio), No clicks present (Cardio) and No murmurs present (Cardio) RATE: regular rate RHYTHM: regular rhythm HEART SOUNDS: S1 normal heart sound present and S2 normal heart sound present GI: COMMON NORMALS: Normal to inspection, nondistended, normoactive bowel sounds present, Soft to palpation, No hepatosplenomegaly present and no masses; negative for non-tender (Mildly tender left lower quadrant) PALPATION: Yes Soft to palpation and Yes No hepatosplenomegaly present Neuro: COMMON NORMALS: patient oriented x3 SENSORIUM/ORIENTATION: Yes alert Course 2 Vital Signs: Vital signs: Vital Signs Temperature 97.9 F 10/10/23 23:29 Pulse Rate 86 10/10/23 23:29 Respiratory Rate 18 10/10/23 23:29 Blood Pressure 186/104 10/10/23 23:29 Pulse Oximetry 97 10/10/23 23:29 Oxygen Delivery Me thod Room Air 10/10/23 23:29 MDM - Back Pain/Injury Medical Decision Making Patient had lab work done included CBC CMP lipase and CRP all of which was essentially benign except for mildly elevated white count at 16, KUB showed no acute findings, contrasted CT scan of the abdomen pelvis showed what may represent gastroenteritis, left ovarian cyst, patient was given 1 [place] p.o. and Reglan 10 mg IV this helped the patient's pain. Patient be discharged on a trial of meloxicam instead of her naproxen. Patient will be referred back to her family practice doctor who may refer her to an HOUSEHOLD APPLIANCE MECHANIC if this keeps giving her problems. Labs 10/10/23 23:57 10/10/23 23:57 Radiology Impressions KUB X-Ray 10/11/23 00:30 IMPRESSION: No acute findings. Abdomen/Pelvis CT 10/11/23 00:57 IMPRESSION: 1. Prominent fluid in the stomach and small bowel may reflect a gastroenteritis. 2. Left ovary 3.6 cm cyst, likely follicular. 3. Mild hepatomegaly. 4. Left adrenal adenoma measuring 12 mm again suspected similar to prior exam. 5. Hepatic steatosis. 6. Cholecystectomy. Laboratory Results WBC 16.13 10^3/uL (3.29-11.43) H 10/10/23 23:57 RBC 5.10 10^6/uL (3.85-5.65) 10/10/23 23:57 Hgb 16.40 g/dL (11.27-16.99) 10/10/23 23:57 Hct 47.5 % (36-47) H 10/10/23 23:57 MCV 93.1 fl (85-98) 10/10/23 23:57 MCH 32.2 pg (27-33) 10/10/23 23:57 MCHC 34.5 g/dL (30-55) 10/10/23 23:57 RDW 12.2 % (12.1-15.1) 10/10/23 23:57 Plt Count 241 10^3/cmm (157-399) 10/10/23 23:57 MPV 10.0 fL (7.4-10.4) 10/10/23 23:57 Neut % (Auto) 54.2 % 10/10/23 23:57 Lymph % (Auto) 38.0 % 10/10/23 23:57 [place] % (Auto) 5.5 % 10/10/23 23:57 Eos % (Auto) 1.5 % 10/10/23 23:57 Baso % (Auto) 0.4 % 10/10/23 23:57 Neut # (Auto) 8.76 10^3/uL (1.8-7.7) H 10/10/23 23:57 Lymph # (Auto) 6.1 10^3/uL (0.8-4.8) H 10/10/23 23:57 [place] # (Auto) 0.9 10^3/uL (0.2-0.9) 10/10/23 23:57 Eos # (Auto) 0.2 10^3/uL (0.0-0.8) 10/10/23 23:57 Baso # (Auto) 0.1 10^3/uL (0.0-0.1) 10/10/23 23:57 Nucleated RBC % (auto) 0 % 10/10/23 23:57 Nucleated RBCs # 0.0 /100WBC 10/10/23 23:57 Sodium 138 mmol/L (136-145) 10/10/23 23:57 Potassium 3.9 mmol/L (3.5-5.1) 10/10/23 23:57 Chloride 102 mmol/L (98-107) 10/10/23 23:57 Carbon Dioxide 27 mmol/L (22-29) 10/10/23 23:57 Anion Gap 12.9 (5-19) 10/10/23 23:57 BUN 12 mg/dL (6-20) 10/10/23 23:57 Creatinine 0.7 mg/dL (0.5-0.9) 10/10/23 23:57 GFR Calculation 95.2 mL/min (90-130) 10/10/23 23:57 Glucose 94 mg/dL (65-115) 10/10/23 23:57 Calculated Osmolality 286 mOsm/kg (285-295) 10/10/23 23:57 Calcium 9.5 mg/dL (8.5-10.5) 10/10/23 23:57 Total Bilirubin 0.3 mg/dL (0.15-1.2) 10/10/23 23:57 AST 18 U/L (0-32) 10/10/23 23:57 ALT 24 U/L (0-33) 10/10/23 23:57 Alkaline Phosphatase 92 U/L (35-105) 10/10/23 23:57 C-Reactive Protein 10.2 mg/L (0.0-4.9) H 10/10/23 23:57 Total Protein 7.6 g/dL (6.6-8.7) 10/10/23 23:57 Albumin 3.7 g/dL (3.5-5.2) 10/10/23 23:57 Globulin 3.9 g/dL (1.3-4.6) 10/10/23 23:57 Lipase 19 U/L (13-60) 10/10/23 23:57 Urine Color Yellow (Yellow) 10/10/23 23:43 Urine Appearance Clear (CLEAR) 10/10/23 23:43 Urine pH 6 (5-7) 10/10/23 23:43 Ur Specific [place] 1.015 (1.005-1.030) 10/10/23 23:43 Urine Protein Neg (Negative) 10/10/23 23:43 Urine Glucose (UA) Norm (Normal) 10/10/23 23:43 Urine Ketones Negative (Negative) 10/10/23 23:43 Urine Blood 2+ (Negative) H 10/10/23 23:43 Urine Nitrate Negative (Negative) 10/10/23 23:43 Urine Bilirubin Neg (Negative) 10/10/23 23:43 Urine Urobilinogen Neg mg/dL (Negative) 10/10/23 23:43 Ur Leukocyte Esterase Negative (Negative) 10/10/23 23:43 Urine RBC 0-4 /hpf (0-2) H 10/10/23 23:43 Urine WBC None /hpf (0-5) 10/10/23 23:43 Ur Squamous Epith Cells 5-10 /hpf (0-5) H 10/10/23 23:43 Amorphous Sediment Not Reportable 10/10/23 23:43 Urine Bacteria None /hpf (NONE) 10/10/23 23:43 XR interpretation done by ED provider, pending radiology final review Discharge Plan Discharge Patient Disposition: Home Clinical Impression: Gastroenteritis, Cyst of left ovary Condition: Stable Prescriptions: No Action Humira 40 mg/0.8 mL syringe kit 40 mg SUBCUT Q7D Rx Instructions: SATURDAY acetaminophen [Tylenol] 325 mg tablet 325 mg PO QID PRN (Reason: Pain) ibuprofen 200 mg tablet 400 mg PO Q6H PRN (Reason: Pain) ascorbic acid (vitamin C) 500 mg capsule 50 mg PO DAILY ondansetron 4 mg tablet,disintegrating 4 mg PO Q6H PRN (Reason: nausea and vomiting) Qty: 14 0RF Naprosyn 500 mg tablet 500 mg PO BID PRN (Reason: pain) Qty: 20 0RF ondansetron HCl 4 mg tablet 4 mg PO Q6H PRN (Reason: nausea and vomiting) Qty: 20 0RF Discharge Orders: Discharge ED (Routine); Ordered 10/11/23 Ordered By: Daniel Ovalles Referrals: Briana Dumas DO [Primary Care Provider] - Patient Instructions: Opioid Safety, Pain Management, Acute Nausea and Vomiting (DC), Ovarian Cyst (ED) Activity Restrictions/Additional Instructions: Please take your pain medicine and nausea medicine as directed. Please follow- up with your family practice physician for further evaluation and treatment. This may include referring you to an HOUSEHOLD APPLIANCE MECHANIC for further delineation or treatment of your ovarian cyst. Coding Level of Care Code ED Medical Lab Tech Instructor for Jessica Cassidy
[2023-10-11 00:33] LABS: Basophils # 0.1 10^3/uL (0.0-0.1); Basophils % 0.4 %; Eosinophils # 0.2 10^3/uL (0.0-0.8); Eosinophils % 1.5 %; Hematocrit 47.5 % (36-47); Lymphocytes # 6.1 10^3/uL (0.8-4.8); Mean Corpuscular HGB Conc 34.5 g/dL (30-55); Mean Corpuscular Hemoglobin 32.2 pg (27-33); Mean Corpuscular Volume 93.1 fl (85-98); Monocytes # 0.9 10^3/uL (0.2-0.9); Monocytes % 5.5 %; Neutrophils # 8.76 10^3/uL (1.8-7.7); Neutrophils % 54.2 %; Nucleated Red Blood Cells % 0 %; Platelet Count 241 10^3/cmm (157-399); Red Cell Distribution Width 12.2 % (12.1-15.1); White Blood Count 16.13 10^3/uL (3.29-11.43)
[2023-10-11 00:34] LABS: Slide Review Slide Review Perform
[2023-10-11] MEDS: metoclopramide 5 mg/mL SDV 2 mL 10 MG IVP (00:54)
[2023-10-11 00:57] LABS: C Reactive Protein 10.2 mg/L (0.0-4.9)
--- NOTE | 2023-10-11 00:57 | CTR_ITS ---
PROCEDURE INFORMATION: Exam: CT Abdomen And Pelvis With Contrast Exam date and time: 10/11/2023 1:07 AM Age: 33 years old Clinical indication: Abdominal pain; Flank; Prior surgery; Surgery date: 6+ months; Surgery type: Gb/appy/hyst/csection; Patient HX: Also left pelvic pain; Additional info: Left lower abd pain, leukocytosis, n/v TECHNIQUE: Imaging protocol: Computed tomography of the abdomen and pelvis with contrast. Radiation optimization: All CT scans at this facility use at least one of these dose optimization techniques: automated exposure control; mA and/or kV adjustment per patient size (includes targeted exams where dose is matched to clinical indication); or iterative reconstruction. Contrast material: OMNI 350; Contrast volume: 100 ml; Contrast route: INTRAVENOUS (IV); COMPARISON: CT abdomen pelvis wo con [id number] 08/28/2023 9:05 AM RADIATION DOSE METRICS: Total DLP (mGy-cm): 1377.33 FINDINGS: Liver: Mild hepatomegaly. Hepatic steatosis. Gallbladder and bile ducts: Cholecystectomy. Pancreas: Normal. No ductal dilation. Spleen: Normal. No splenomegaly. Adrenal glands: Left adrenal adenoma measuring 12 mm again suspected similar to prior exam. Kidneys and ureters: Normal. No hydronephrosis. Stomach and bowel: Prominent fluid in the stomach and small bowel may reflect a gastroenteritis. Appendix: No evidence of appendicitis. Intraperitoneal space: Unremarkable. No free air. No significant fluid collection. Vasculature: Unremarkable. No abdominal aortic aneurysm. Lymph nodes: Unremarkable. No enlarged lymph nodes. Urinary bladder: Unremarkable as visualized. Reproductive: Left ovary 3.6 cm cyst, likely follicular. Bones/joints: Unremarkable. No acute fracture. Soft tissues: Unremarkable. CT/CT abdomen pelvis w con* [id number] IMPRESSION: 1. Prominent fluid in the stomach and small bowel may reflect a gastroenteritis. 2. Left ovary 3.6 cm cyst, likely follicular. 3. Mild hepatomegaly. 4. Left adrenal adenoma measuring 12 mm again suspected similar to prior exam. 5. Hepatic steatosis. 6. Cholecystectomy.
[2023-10-11] MEDS: iohexol 350 mg/mL 500 mL Btl (per mL) IV (01:17)
[2023-10-11] MEDS: HYDROcodone-acetaminophen 5-325 mg Tablet 1 TAB PO (01:45)
== END 2023-10-11 01:45 | disposition home or self-care (01) ==
PROVIDERS: Emergency Provider Emergency Medicine; PCP Family Medicine
DX: K52.9 Noninfective gastroenteritis and colitis, unspecified (principal); N83.202 Unspecified ovarian cyst, left side
CPT/HCPCS: 74018; 74177; 80053; 81001; 81003; 83690; 85025; 86140; 96374; 99285; J2765; Q9967

== ENCOUNTER 2023-10-28 07:42 | Outpatient (CLI) | payer MEDICAID, SELFPAY ==
--- NOTE | 2023-10-28 07:49 | US_ITS ---
WS: [id number] US pelv w/transvag [id number] HISTORY: PELVIC PAIN IN FEMALE COMPARISON: 02/25/2023, 01/17/[address] 10/11/2023 Status post hysterectomy. No midline mass. Right ovary: Not visualized. No adnexal mass. Left ovary: 2.7 cm x 3.6 cm x 3.5 cm. There is a cystic and solid mass in the LEFT adnexa which has a different configuration and echogenicity as compared to the prior ultrasounds. There is a cystic mas s measures 1.4 x 1.2 x 1.5 cm. There is an additional solid more homogeneous mass measuring 1.8 x 2.5 x 3.1 cm. This is probably a hemorrhagic cyst associated with the ovary. No free fluid in the cul-de-sac. IMPRESSION: 1. Solid and cystic components associated with the LEFT ovary. The LEFT ovary is very slightly enlar ged. The solid component is probably a hemorrhagic cyst and is new since 02/25/2023. Recommend follow- up ultrasound in 2 to 3 months. Transvaginal pelvic ultrasound imaging should be performed to reevalu ate the LEFT ovary. 2. Prior hysterectomy. 3. RIGHT ovary not identified.
== END 2023-10-28 07:43 | disposition home or self-care (01) ==
LOC: RAD 07:43
PROVIDERS: PCP Family Medicine; Visit Provider Nurse Practitioner Family
DX: R10.2 Pelvic and perineal pain (principal)
CPT/HCPCS: 76830; 76856

== ENCOUNTER 2023-11-28 08:46 | Outpatient (CLI) | payer MEDICAID, SELFPAY ==
--- NOTE | 2023-11-28 08:54 | XRR_ITS ---
PROCEDURE INFORMATION: Exam: XR Lumbosacral Spine Exam date and time: 11/28/2023 9:11 AM Age: 33 years old Clinical indication: Low back pain; Additional info: Chronic bilateral low back pain w/l sided sciatica TECHNIQUE: Imaging protocol: Radiologic exam of the lumbosacral spine. Views: 2 or 3 views. COMPARISON: CT abdomen pelvis w con* [id number] 10/11/2023 1:07 AM FINDINGS: Bones/joints: Normal. No acute fracture. Normal alignment. Soft tissues: Unremarkable. Organs: Cholecystectomy. XR/XR lumbar spine 2-3V* [id number] IMPRESSION: No acute findings.
--- NOTE | 2023-11-28 09:15 | XRR_ITS ---
PROCEDURE INFORMATION: Exam: XR Right Knee Exam date and time: 11/28/2023 9:20 AM Age: 33 years old Clinical indication: Pain; Knee; Right; Additional info: Injury TECHNIQUE: Imaging protocol: Radiologic exam of the right knee. Views: 3 views. COMPARISON: CR XR knee RT 3V* [id number] 02/18/2023 5:48 PM FINDINGS: Bones/joints: Normal. No fracture or dislocation. No acute osseous, joint, or soft tissue abnormality. Soft tissues: Normal. XR/XR knee RT 3V* [id number] IMPRESSION: The findings are normal.
== END 2023-11-28 08:47 | disposition home or self-care (01) ==
LOC: RAD 08:50
PROVIDERS: PCP Family Medicine; Visit Provider Family Medicine
DX: M54.42 Lumbago with sciatica, left side (principal); S89.91XA Unspecified injury of right lower leg, initial encounter; X58.XXXA Exposure to other specified factors, initial encounter
CPT/HCPCS: 72100; 73562

== ENCOUNTER 2023-12-04 12:01 | Outpatient (CLI) | payer MEDICAID, SELFPAY ==
--- NOTE | 2023-12-04 12:03 | USR_ITS ---
PROCEDURE INFORMATION: Exam: US Retroperitoneal; Complete; Kidneys and Bladder Exam date and time: 12/04/2023 12:26 PM Age: 33 years old Clinical indication: Other: Gross hematuria TECHNIQUE: Imaging protocol: Real-time ultrasound of the retroperitoneum with image documentation. Complete exam focused on the kidneys and bladder. COMPARISON: CT abdomen pelvis w con* [id number] 10/11/2023 1:07 AM FINDINGS: Liver: Diffuse hepatic steatosis. Right kidney: The right kidney measures 12.4 cm. No hydronephrosis. Left kidney: The left kidney measures 11.8 cm. No hydronephrosis. Urinary bladder: Unremarkable. US/US renal BI* [id number] IMPRESSION: No hydronephrosis.
== END 2023-12-04 12:02 | disposition home or self-care (01) ==
LOC: RAD 12:01
PROVIDERS: PCP Family Medicine; Visit Provider Family Medicine
DX: R31.0 Gross hematuria (principal)
CPT/HCPCS: 76770

== ENCOUNTER 2023-12-11 09:21 | Emergency (ER) | payer MEDICAID, SELFPAY ==
[2023-12-11 09:35] VITALS: BP 173/97; PULSE 79; TEMP 36.4; O2SAT 98; BMI 50.1
--- NOTE | 2023-12-11 09:56 | W.ED.DENTAL ---
HPI - Dental/Oral General: Chief complaint: Dental/Oral Stated complaint: headache Time Seen by Provider: 12/11/23 09:31 Source: patient Mode of arrival: ambulatory History of Present Illness: 33-year-old female presents emergency room complaining of swelling in the left maxillary region. It is in the canine teeth. She has been taking Tylenol and ibuprofen with no relief slight swelling headache no fever no drainage. She has not been able to see her dentist. Associated symptoms: Denies ear or mastoid pain, fever(s), gum swelling, odynophagia, sore throat or tongue swelling Treatment prior to arrival: none Review of Systems Const: Denies: fever(s) ENMT: Denies: odynophagia or ear or mastoid pain All/Imm: Denies: tongue swelling PFSH ED PFSH: Medical History Immunization counseling High risk medication use Positive LOKESH (antinuclear antibody) Inflammatory arthritis Epidermoid cyst of face surgically removed Anxiety Depression Stomach ulcer No pertinent past medical history Surgical History H/O tubal ligation History of cholecystectomy History of appendectomy History of delivery History of hysterectomy History of tonsillectomy Family History Mother Colon cancer Diabetes Hyperlipidemia Hypertension Stroke Heart disease Father Diabetes Hypertension Thyroid disease Denies family history of Clotting disorder Chronic kidney disease (CKD) Bleeding disorder Social History Substance/Drug Use: never Physical Exam Const: GENERAL APPEARANCE: cooperative and comfortable ORIENTATION/CONSCIOUSNESS: Yes awake, Yes oriented to person, Yes oriented to place and Yes oriented to time HENMT: COMMON NORMALS: normocephalic, atraumatic and hearing grossly normal bilaterally HEAD & SCALP: normocephalic and atraumatic OTHER: Eroded canine tooth and premolar on the left upper. No active drainage moderate swelling along the gumline Resp: COMMON NORMALS: normal respiratory effort, No retractions, No use of accessory muscles and clear to auscultation bilaterally AUSCULTATION: clear to auscultation bilaterally Cardio: COMMON NORMALS: regular rate, regular rhythm and No murmurs present (Cardio) RATE: regular rate RHYTHM: regular rhythm GI: COMMON NORMALS: Soft to palpation and No hepatosplenomegaly present AUSCULTATION: Yes normoactive bowel sounds PALPATION: Yes Soft to palpation, No Tenderness to palpation present (GI), No Guarding due to palpation present (GI) and Yes No hepatosplenomegaly present Extremity: COMMON NORMALS: normal to inspection, capillary refill normal, no clubbing, cyanosis or edema, no calf tenderness and no pedal edema Neuro: SENSORIUM/ORIENTATION: Yes oriented to person, Yes oriented to place and Yes oriented to time Skin: COMMON NORMALS: no rashes or lesions noted GENERAL SKIN EXAM: no rashes or lesions noted Course Vital Signs: Vital signs: Vital Signs Temperature 97.5 F L 12/11/23 09:35 Pulse Rate 84 12/11/23 10:09 Respiratory Rate 16 12/11/23 10:09 Blood Pressure 146/119 12/11/23 10:09 Pulse Oximetry 95 12/11/23 10:09 Oxygen Delivery Me thod Room Air 12/11/23 09:35 MDM - Dental/Oral Medical Decision Making Patient allergic to penicillin. Start clindamycin 300 mg 1 p.o. 4 times daily for 10 days pain medications as needed. Follow-up with dentist for definitive care as soon as able. Medical Records I reviewed the patient's medical records. Lab Data I reviewed the patient's lab results. No radiology studies performed this visit Discharge Plan Discharge Patient Disposition: Home Clinical Impression: Dental caries Condition: Stable Prescriptions: New diclofenac sodium 75 mg tablet,delayed release (DR/EC) 75 mg PO Q12H PRN (Reason: pain) Qty: 20 0RF clindamycin HCl 300 mg capsule 300 mg PO Q6H 10 Days Qty: 40 0RF No Action Humira 40 mg/0.8 mL syringe kit 40 mg SUBCUT Q7D Rx Instructions: SATURDAY acetaminophen [Tylenol] 325 mg tablet 325 mg PO QID PRN (Reason: Pain) ibuprofen 200 mg tablet 400 mg PO Q6H PRN (Reason: Pain) ascorbic acid (vitamin C) 500 mg capsule 50 mg PO DAILY ondansetron 4 mg tablet,disintegrating 4 mg PO Q6H PRN (Reason: nausea and vomiting) Qty: 14 0RF meloxicam 7.5 mg tablet 7.5 mg PO .Twice daily PRN (Reason: pain) Qty: 14 0RF ondansetron HCl 4 mg tablet 4 mg PO Q6H PRN (Reason: nausea and vomiting) Qty: 20 0RF Discharge Orders: Discharge ED (Routine); Ordered 12/11/23 Ordered By: Raghu Mcleod Referrals: Briana Dumas, DO [Primary Care Provider] - Discharge Diet: Usual diet Discharge Activity: Increase activity as tolerated Patient Instructions: Dental Caries (Cavities), Opioid Safety, Pain Management Activity Restrictions/Additional Instructions: Thank you for choosing [facility] for your healthcare needs today. Please realize this is an emergency room and that we are providing you with a medical screening exam and this may not be complete and all inclusive of all the testing and or work up that you may need to determine your ailment or severity of your illness. It is very important that you follow up as instructed or that you return to the Emergency Department should you have concerns or if your condition changes or worsens in any way. Coding Level of Care Code ED Agent Telegrapher for Jessica Cassidy
[2023-12-11 10:09] VITALS: BP 146/119; PULSE 84; RESP 16; O2SAT 95
== END 2023-12-11 10:11 | disposition home or self-care (01) ==
PROVIDERS: Emergency Provider Family Medicine; PCP Family Medicine
DX: K02.9 Dental caries, unspecified (principal)
CPT/HCPCS: 99283

== ENCOUNTER 2024-02-22 21:28 | Emergency (ER) | payer MEDICAID, SELFPAY ==
[2024-02-22 21:40] VITALS: BP 171/104; PULSE 96; TEMP 36.4; O2SAT 98; BMI 46.7
--- NOTE | 2024-02-22 22:07 | W.ED.SKABFB ---
HPI - Skin/Abscess/Foreign Bdy General: Chief complaint: Skin/Abscess/Foreign Body Stated complaint: Spider Bite Time Seen by Provider: 02/22/24 21:32 Source: patient Mode of arrival: ambulatory Limitations: no limitations History of Present Illness: 33-year-old female states she has an abscess to her right breast for the last 4 days states it has been open and draining. She states that some slight erythema some pain denies any worse improved factors she has not been on any antibiotics. Associated symptoms: Deny chills, fever(s), nausea or vomiting Review of Systems Const: Denies: fever(s), chills, body aches or change in appetite ENMT: Denies: throat pain or dental pain Card: Denies: chest pain Resp: Denies: dyspnea GI: Denies: abdominal pain, nausea, vomiting or diarrhea Musc: Denies: neck pain or back pain Skin/Breast: Denies: rash Neuro: Denies: headache(s) PFSH ED PFSH: Medical History Immunization counseling High risk medication use Positive LOKESH (antinuclear antibody) Inflammatory arthritis Epidermoid cyst of face surgically removed Anxiety Depression Stomach ulcer No pertinent past medical history Surgical History H/O tubal ligation History of cholecystectomy History of appendectomy History of delivery History of hysterectomy History of tonsillectomy Family History Mother Colon cancer Diabetes Hyperlipidemia Hypertension Stroke Heart disease Father Diabetes Hypertension Thyroid disease Denies family history of Clotting disorder Chronic kidney disease (CKD) Bleeding disorder Social History Smoking and tobacco/nicotine status: current every day tobacco/nicotine user cigarettes Substance/Drug Use: never Physical Exam Const: COMMON NORMALS: no acute distress, patient oriented x3 and healthy appearing HENMT: COMMON NORMALS: normocephalic and atraumatic HEAD & SCALP: normocephalic and atraumatic Neck/C-Spine: COMMON NORMALS: full ROM and supple Chest: COMMONS NORMALS: normal inspection of the chest Resp: COMMON NORMALS: normal respiratory effort Cardio: COMMON NORMALS: regular rate, regular rhythm and No murmurs present (Cardio) RATE: regular rate RHYTHM: regular rhythm Extremity: COMMON NORMALS: normal to inspection and full ROM Neuro: COMMON NORMALS: patient oriented x3, moves all extremities and no focal motor deficits Psych: COMMON NORMALS: mental status grossly normal, Normal thought process present and cooperative THOUGHT PROCESS: Normal thought process present Skin: NARRATIVE SKIN EXAM: Abscess noted to right breast is open draining Course Vital Signs: Vital signs: Vital Signs Temperature 97.6 F 02/22/24 21:40 Pulse Rate 96 02/22/24 21:40 Blood Pressure 171/104 02/22/24 21:40 Pulse Oximetry 98 02/22/24 21:40 Oxygen Delivery Me thod Room Air 02/22/24 21:40 MDM - Skin/Abscess/Foreign Bdy Medicial Decision Making Patient presents here with an abscess to her right breast we will place her on clindamycin abscess already opened and drainage does not need incise she is return if worsening she understands agrees to plan Medical Records I reviewed the patient's medical records. No radiology studies performed this visit Discharge Plan Discharge Patient Disposition: Home Clinical Impression: Abscess of skin or subcutaneous tissue Condition: Stable Prescriptions: New clindamycin HCl 300 mg capsule 300 mg PO Q8H 7 Days Qty: 21 0RF No Action Humira 40 mg/0.8 mL syringe kit 40 mg SUBCUT Q7D Rx Instructions: SATURDAY acetaminophen [Tylenol] 325 mg tablet 325 mg PO QID PRN (Reason: Pain) ibuprofen 200 mg tablet 400 mg PO Q6H PRN (Reason: Pain) ascorbic acid (vitamin C) 500 mg capsule 50 mg PO DAILY fluticasone propionate [Flonase Allergy Relief] 50 mcg/actuation spray,suspension 2 spray intranasal DAILY Qty: 16 0RF Rx Instructions: administer into each nostril cetirizine [Zyrtec] 10 mg tablet 10 mg PO DAILY Qty: 30 0RF erythromycin 5 mg/gram (0.5 %) ointment 1 applic ophthalmic (eye) DAILY Qty: 3.5 0RF ondansetron 4 mg tablet,disintegrating 4 mg PO Q6H PRN (Reason: nausea and vomiting) Qty: 14 0RF meloxicam 7.5 mg tablet 7.5 mg PO .Twice daily PRN (Reason: pain) Qty: 14 0RF diclofenac sodium 75 mg tablet,delayed release (DR/EC) 75 mg PO Q12H PRN (Reason: pain) Qty: 20 0RF ondansetron HCl 4 mg tablet 4 mg PO Q6H PRN (Reason: nausea and vomiting) Qty: 20 0RF Discharge Orders: Discharge ED (Routine); Ordered 02/22/24 Ordered By: Brian Pate Referrals: Briana Dumas DO [Primary Care Provider] - 4-7 days Discharge Diet: Advance as tolerated Discharge Activity: Resume usual activity Patient Instructions: Abscess (ED) Coding Level of Care Code ED Roll Grinder for Jessica Cassidy
[2024-02-22] MEDS: clindamycin 150 mg Capsule 300 MG PO (22:18)
== END 2024-02-22 22:24 | disposition home or self-care (01) ==
PROVIDERS: Emergency Provider Emergency Medicine; PCP Family Medicine
DX: N61.1 Abscess of the breast and nipple (principal); F17.210 Nicotine dependence, cigarettes, uncomplicated
CPT/HCPCS: 99283

== ENCOUNTER 2024-03-09 13:52 | Emergency (ER) | payer MEDICAID, SELFPAY ==
[2024-03-09 14:00] VITALS: BP 153/107; PULSE 77; RESP 16; TEMP 36.4; O2SAT 97; BMI 51.6
[2024-03-09 14:22] LABS: Basophils % 0.3 %; Eosinophils # 0.3 10^3/uL (0.0-0.8); Eosinophils % 1.8 %; Hematocrit 47.7 % (36-47); Lymphocytes # 4.8 10^3/uL (0.8-4.8); Lymphocytes % 32.7 %; Mean Corpuscular HGB Conc 33.1 g/dL (30-55); Mean Corpuscular Hemoglobin 31.5 pg (27-33); Mean Platelet Volume 10.1 fL (7.4-10.4); Monocytes # 0.7 10^3/uL (0.2-0.9); Monocytes % 4.5 %; Neutrophils # 8.82 10^3/uL (1.8-7.7); Neutrophils % 60.3 %; Nucleated Red Blood Cells % 0 %; Platelet Count 233 10^3/cmm (157-399); Red Blood Count 5.02 10^6/uL (3.85-5.65); Red Cell Distribution Width 12.9 % (12.1-15.1); White Blood Count 14.63 10^3/uL (3.29-11.43)
[2024-03-09 14:38] LABS: Alanine Aminotransferase 22 U/L (0-33); Albumin Level 3.6 g/dL (3.5-5.2); Alkaline Phosphatase 94 U/L (35-105); Aspartate Amino Transferase 15 U/L (0-32); Blood Urea Nitrogen 12 mg/dL (6-20); Calcium 8.7 mg/dL (8.5-10.5); Carbon Dioxide 26 mmol/L (22-29); Chloride 102 mmol/L (98-107); Creatinine Clr Calc Pharmacy 165.8208; Globulin 4.1 g/dL (1.3-4.6); Glomerular Filtration Rate 95.2 mL/min (90-130); Glucose 99 mg/dL (65-115); HCG, Serum Qual Negative (Negative); Lipase 27 U/L (13-60); Osmolality Calculated 286 mOsm/kg (285-295); Sodium 138 mmol/L (136-145); Total Bilirubin 0.3 mg/dL (0.15-1.2); Total Protein 7.7 g/dL (6.6-8.7)
[2024-03-09 14:59] LABS: Slide Review Slide Review Perform
--- NOTE | 2024-03-09 15:03 | CTR_ITS ---
PROCEDURE INFORMATION: Exam: CT Abdomen And Pelvis With Contrast Exam date and time: 03/09/2024 3:46 PM Age: 33 years old Clinical indication: Fever and nausea and vomiting; Abdominal pain; Localized; Lower; Prior surgery; Surgery date: 6+ months; Surgery type: Tubal, hyst, gb, appy; Additional info: Abd pain TECHNIQUE: Imaging protocol: Computed tomography of the abdomen and pelvis with contrast. Radiation optimization: All CT scans at this facility use at least one of these dose optimization techniques: automated exposure control; mA and/or kV adjustment per patient size (includes targeted exams where dose is matched to clinical indication); or iterative reconstruction. Contrast material: OMNI 350; Contrast volume: 100 ml; Contrast route: INTRAVENOUS (IV); COMPARISON: CT abdomen pelvis w con* [id number] 10/11/2023 1:07 AM RADIATION DOSE METRICS: Total DLP (mGy-cm): 1460 FINDINGS: Lungs: Subsegmental bibasilar atelectasis. The visualized lung bases are otherwise grossly clear. Diaphragm: No evidence of diaphragmatic defect. Liver: Hepatic steatosis. No evidence of focal hepatic lesion. Gallbladder and biliary ducts: Status post cholecystectomy. No evidence of intrahepatic or extrahepatic biliary dilatation. Pancreas: Unremarkable. Spleen: Unremarkable. Adrenal glands: 1.4 cm lipid rich adenoma on the left. Adrenal glands are otherwise unremarkable. Kidneys and ureters: No renal parenchymal abnormality. No hydronephrosis or ureteral stone. Stomach and bowel: Acute sigmoid diverticulitis with wall thickening and inflammatory changes in the pelvis. No fluid collection or perforation. No evidence of bowel obstruction. There are few mildly prominent loops of small bowel, possibly reflecting reactive ileus. Appendix: Prior appendectomy. Intraperitoneal space: No evidence of free air or fluid collection. Vasculature: No aneurysmal dilatation or dissection of the abdominal aorta. The celiac trunk, SMA and HORACIO are grossly patent. No evidence of IVC thrombus. The portal vein, SMV and splenic veins are grossly patent. Lymph nodes: No adenopathy. Urinary bladder: Grossly unremarkable. Reproductive: Prior hysterectomy. Bones/joints: No evidence of acute fracture or aggressive osseous lesion. Mild osteoarthritis of both hips with fragmented acetabular osteophytes. Soft tissues: No evidence of fluid collection or hematoma in the superficial soft tissues. CT/CT abdomen pelvis w con* [id number] IMPRESSION: 1. Acute sigmoid diverticulitis. No perforation or fluid collection. Follow-up exam in 4-6 weeks is recommended to assess for resolution.
[2024-03-09] MEDS: morphine 4 mg/mL SDV 1 mL IVP (15:09)
[2024-03-09] MEDS: ondansetron 2 mg/ML SDV 2 mL 4 MG IVP (15:09)
[2024-03-09] MEDS: sodium chloride 0.9% 1,000 ML 999 ML IV ×2 (15:09→16:33)
--- NOTE | 2024-03-09 15:11 | ED_ITS ---
HPI - Abdominal Pain 2 General: Chief Complaint: Abdominal Pain Stated Complaint: Vomiting, trouble urination, abd pain Time Seen by Provider: 03/09/24 14:52 Source: patient and EMS Mode of arrival: EMS Limitations: no limitations History of Present Illness: 33-year-old female states she been havin g abdominal pain last 2 days states pains in her lower abdomen she had a history of hemorrhagic cyst before. She has had her gallbladder out her uterus out and her appendix out. States pain has been sharp and worsening rates pain 8 out of 10 she had low-grade fevers at home has had some dysuria as well. Associated Symptoms: Denies chills, diarrhea, fever(s), nausea and vomiting Review of Systems 2 Const: Denies: fever(s), chills, body aches or change in appetite ENMT: Denies: throat pain or dental pain Card: Denies: chest pain Resp: Denies: dyspnea GI: Denies: abdominal pain, nausea, vomiting or diarrhea Musc: Denies: neck pain or back pain Skin/Breast: Denies: rash Neuro: Denies: headache(s) PFSH ED 2 PFSH: Medical History Immunization counseling High risk medication use Positive LOKESH (antinuclear antibody) Inflammatory arthritis Epidermoid cyst of face surgically removed Anxiety Depression Stomach ulcer No pertinent past medical history Surgical History H/O tubal ligation History of cholecystectomy History of appendectomy History of delivery History of hysterectomy History of tonsillectomy Family History Mother Colon cancer Diabetes Hyperlipidemia Hypertension Stroke Heart disease Father Diabetes Hypertension Thyroid disease Denies family history of Clotting disorder Chronic kidney disease (CKD) Bleeding disorder Social History Smoking and tobacco/nicotine status: current every day tobacco/nicotine user cigarettes Substance/Drug Use: never Physical Exam 2 Const: COMMON NORMALS: no acute distress, patient oriented x3 and healthy appearing HENMT: COMMON NORMALS: normocephalic and atraumatic HEAD & SCALP: n ormocephalic and atraumatic Neck/C-Spine: COMMON NORMALS: full ROM and supple Chest: COMMONS NORMALS: normal inspection of the chest Resp: COMMON NORMALS: normal respiratory effort, No retractions, No use of accessory muscles and clear to auscultation bilaterally AUSCULTATION: clear to auscultation bilaterally Cardio: COMMON NORMALS: regular rate, regular rhythm and No murmurs present (Cardio) RATE: regular rate RHYTHM: regular rhythm GI: COMMON NORMALS: Normal to inspection, nondistended, normoactive bowel sounds present, Soft to palpation and no masses PALPATION: Yes Soft to palpation OTHER: lower abd tenderness Extremity: COMMON NORMALS: normal to inspection and full ROM Neuro: COMMON NORMALS: patient oriented x3, moves all extremities and no focal motor deficits Psych: COMMON NORMALS: mental status grossly normal, Normal thought process present and cooperative THOUGHT PROCESS: Normal thought process present Skin: COMMON NORMALS: no rashes or lesions noted and no wounds GENERAL SKIN EXAM: no rashes or lesions noted Course 2 Vital Signs: Vital signs: Vital Signs Temperature 97.6 F 03/09/24 14:00 Pulse Rate 66 03/09/24 16:06 Respiratory Rate 18 03/09/24 16:06 Blood Pressure 153/95 03/09/24 16:06 Pulse Oximetry 99 03/09/24 16:06 Oxygen Delivery Me thod Room Air 03/09/24 16:06 MDM - Abdominal Pain Medical Decision Making Patient presents here with abdominal pain CT does show diverticulitis no perforation or abscess we will try outpatient oral antibiotics we will place her on pain meds Cipro and Flagyl she is follow-up with PCP in 4 to 7 days informed if she has worsening pain or fever she is to return she understands agrees to plan. Medical Records I reviewed the patient's medical records. Lab Data I reviewed the patient's lab results. 03/09/24 14:12 03/09/24 14:12 Labs/Radiology: Radiology Impressions Abdomen/Pelvis CT 03/09/24 15:03 IMPRESSION: 1. Acute sigmoid diverticulitis. No perforation or fluid collection. Follow-up exam in 4-6 weeks is recommended to assess for resolution. Laboratory Results WBC 14.63 10^3/uL (3.29-11.43) H 03/09/24 14:12 RBC 5.02 10^6/uL (3.85-5.65) 03/09/24 14:12 Hgb 15.80 g/dL (11.27-16.99) 03/09/24 14:12 Hct 47.7 % (36-47) H 03/09/24 14:12 MCV 95.0 fl (85-98) 03/09/24 14:12 MCH 31.5 pg (27-33) 03/09/24 14:12 MCHC 33.1 g/dL (30-55) 03/09/24 14:12 RDW 12.9 % (12.1-15.1) 03/09/24 14:12 Plt Count 233 10^3/cmm (157-399) 03/09/24 14:12 MPV 10.1 fL (7.4-10.4) 03/09/24 14:12 Neut % (Auto) 60.3 % 03/09/24 14:12 Lymph % (Auto) 32.7 % 03/09/24 14:12 [place] % (Auto) 4.5 % 03/09/24 14:12 Eos % (Auto) 1.8 % 03/09/24 14:12 Baso % (Auto) 0.3 % 03/09/24 14:12 Neut # (Auto) 8.82 10^3/uL (1.8-7.7) H 03/09/24 14:12 Lymph # (Auto) 4.8 10^3/uL (0.8-4.8) 03/09/24 14:12 [place] # (Auto) 0.7 10^3/uL (0.2-0.9) 03/09/24 14:12 Eos # (Auto) 0.3 10^3/uL (0.0-0.8) 03/09/24 14:12 Baso # (Auto) 0.0 10^3/uL (0.0-0.1) 03/09/24 14:12 Nucleated RBC % (auto) 0 % 03/09/24 14:12 Nucleated RBCs # 0.0 /100WBC 03/09/24 14:12 Sodium 138 mmol/L (136-145) 03/09/24 14:12 Potassium 4.0 mmol/L (3.5-5.1) 03/09/24 14:12 Chloride 102 mmol/L (98-107) 03/09/24 14:12 Carbon Dioxide 26 mmol/L (22-29) 03/09/24 14:12 Anion Gap 14.0 (5-19) 03/09/24 14:12 BUN 12 mg/dL (6-20) 03/09/24 14:12 Creatinine 0.7 mg/dL (0.5-0.9) 03/09/24 14:12 GFR Calculation 95.2 mL/min (90-130) 03/09/24 14:12 Glucose 99 mg/dL (65-115) 03/09/24 14:12 Calculated Osmolality 286 mOsm/kg (285-295) 03/09/24 14:12 Calcium 8.7 mg/dL (8.5-10.5) 03/09/24 14:12 Total Bilirubin 0.3 mg/dL (0.15-1.2) 03/09/24 14:12 AST 15 U/L (0-32) 03/09/24 14:12 ALT 22 U/L (0-33) 03/09/24 14:12 Alkaline Phosphatase 94 U/L (35-105) 03/09/24 14:12 Total Protein 7.7 g/dL (6.6-8.7) 03/09/24 14:12 Albumin 3.6 g/dL (3.5-5.2) 03/09/24 14:12 Globulin 4.1 g/dL (1.3-4.6) 03/09/24 14:12 Lipase 27 U/L (13-60) 03/09/24 14:12 HCG, Qual Negative (Negative) 03/09/24 14:12 Urine Color Yellow (Yellow) 03/09/24 14:00 Urine Appearance Clear (CLEAR) 03/09/24 14:00 Urine pH 7 (5-7) 03/09/24 14:00 Ur Specific [place] 1.010 (1.005-1.030) 03/09/24 14:00 Urine Protein Neg (Negative) 03/09/24 14:00 Urine Glucose (UA) Norm (Normal) 03/09/24 14:00 Urine Ketones 1+ (Negative) H 03/09/24 14:00 Urine Blood 2+ (Negative) H 03/09/24 14:00 Urine Nitrate Negative (Negative) 03/09/24 14:00 Urine Bilirubin Neg (Negative) 03/09/24 14:00 Urine Urobilinogen Norm mg/dL (Negative) 03/09/24 14:00 Ur Leukocyte Esterase Negative (Negative) 03/09/24 14:00 Urine RBC 0-4 /hpf (0-2) H 03/09/24 14:00 Urine WBC 0-4 /hpf (0-5) H 03/09/24 14:00 Ur Squamous Epith Cells 0-4 /hpf (0-5) H 03/09/24 14:00 Amorphous Sediment Trace /hpf 03/09/24 14:00 Urine Bacteria 1+ /hpf (NONE) H 03/09/24 14:00 All radiology interpretation(s) finalized by discharge Discharge Plan Discharge Patient Disposition: Home Clinical Impression: Diverticulitis Condition: Stable Prescriptions: New hydrocodone-acetaminophen 5-325 mg tablet 1 tab PO Q6H PRN (Reason: pain) Qty: 14 0RF metronidazole 500 mg tablet 500 mg PO Q8H 7 Days Qty: 21 0RF Cipro 500 mg tablet 500 mg PO BID Qty: 14 0RF ondansetron 4 mg tablet,disintegrating 4 mg PO Q6H PRN (Reason: nausea and vomiting) Qty: 14 0RF No Action Humira 40 mg/0.8 mL syringe kit 40 mg SUBCUT Q7D Rx Instructions: SATURDAY acetaminophen [Tylenol] 325 mg tablet 325 mg PO QID PRN (Reason: Pain) ibuprofen 200 mg tablet 400 mg PO Q6H PRN (Reason: Pain) ascorbic acid (vitamin C) 500 mg capsule 50 mg PO DAILY fluticasone propionate [Flonase Allergy Relief] 50 mcg/actuation spray,suspension 2 spray intranasal DAILY Qty: 16 0RF Rx Instructions: administer into each nostril cetirizine [Zyrtec] 10 mg tablet 10 mg PO DAILY Qty: 30 0RF erythromycin 5 mg/gram (0.5 %) ointment 1 applic ophthalmic (eye) DAILY Qty: 3.5 0RF ondansetron 4 mg tablet,disintegrating 4 mg PO Q6H PRN (Reason: nausea and vomiting) Qty: 14 0RF meloxicam 7.5 mg tablet 7.5 mg PO .Twice daily PRN (Reason: pain) Qty: 14 0RF diclofenac sodium 75 mg tablet,delayed release (DR/EC) 75 mg PO Q12H PRN (Reason: pain) Qty: 20 0RF ondansetron HCl 4 mg tablet 4 mg PO Q6H PRN (Reason: nausea and vomiting) Qty: 20 0RF Discharge Orders: Discharge ED (Routine); Ordered 03/09/24 Ordered By: Brian Pate Referrals: Briana Dumas DO [Primary Care Provider] - 4-7 days Discharge Diet: Advance as tolerated Discharge Activity: Resume usual activity Patient Instructions: Diverticulitis (ED), Opioid Safety Coding Level of Care Code ED Board Operator for Jessica Cassidy
[2024-03-09 15:44] LABS: Add Urine Microscopic? YES; Bilirubin Urine Neg (Negative); Blood Urine 2+ (Negative); Glucose Urine UA Norm (Normal); Ketones Urine 1+ (Negative); Leukocyte Esterase Urine Negative (Negative); Nitrate Urine Negative (Negative); Protein Urine Neg (Negative); Urine Appearance Clear (CLEAR); Urine Color Yellow (Yellow); Urobilinogen Urine Norm (Negative); pH Urine 7 (5-7)
[2024-03-09 15:45] LABS: Add Urine Culture? No; Amorphous Sediment Urine TRACE /hpf; Bacteria Urine 1+ /hpf; RBC Urine 0-4 /hpf (0-2); Squamous Epithelial Cell Urine 0-4 /hpf (0-5); WBC Urine 0-4 /hpf (0-5)
[2024-03-09] MEDS: iohexol 350 mg/mL 500 mL Btl (per mL) IV (15:48)
--- NOTE | 2024-03-09 16:04 | PC.NURSE ---
Pt back in room after CT scan, states pain is returning after CT scan. Notified physician
[2024-03-09 16:06] VITALS: BP 153/95; PULSE 66; RESP 18; O2SAT 99
[2024-03-09] MEDS: HYDROmorphone 1 mg/mL INJ 1 mL IVP (16:08)
[2024-03-09 17:00] VITALS: BP 132/73; PULSE 71; RESP 16; O2SAT 98
[2024-03-09] MEDS: ciprofloxacin 500 mg Tablet PO (17:03)
[2024-03-09] MEDS: metroNIDAZOLE 500 MG Tablet PO (17:03)
[2024-03-09 17:32] VITALS: BP 132/87; PULSE 72; RESP 14; O2SAT 99
== END 2024-03-09 17:32 | disposition home or self-care (01) ==
PROVIDERS: Emergency Provider Emergency Medicine; PCP Family Medicine
DX: K57.92 Diverticulitis of intestine, part unspecified, without perforation or abscess without bleeding (principal); F17.210 Nicotine dependence, cigarettes, uncomplicated
CPT/HCPCS: 36415; 74177; 80053; 81001; 83690; 84703; 85025; 96361; 96374; 96375; 99285; J1170; J2270; J2405; J7030; Q9967

== ENCOUNTER 2024-03-12 13:20 | Inpatient (IN) | payer MEDICAID, SELFPAY ==
[2024-03-12] VITALS (11 sets, daily range): BP systolic 110–187; BP diastolic 61–108; PULSE 68–94; RESP 16–22; TEMP 36.4; O2SAT 90–97; BMI 51.7
--- NOTE | 2024-03-12 14:07 | ED_ITS ---
HPI - Abdominal Pain 2 General: Chief Complaint: Abdominal Pain Stated Complaint: n/v, abd pain, back pain,gotten worse since saturday Time Seen by Provider: 03/12/24 13:40 Source: patient Mode of arrival: ambulatory History of Present Illness: 33-year-old female presents emergency ro om complaining of abdominal pain. She was seen on 03/09/2024 regarding the emergency room CT showed diverticulitis. She was treated with oral antibiotics metronidazole and Cipro. She states she is still not getting better feels like she has maybe gotten somewhat worse. She reports a fever at home. She has had several episodes of nausea and vomiting. Denies hematemesis coffee-ground emesis hematochezia or melena. She has previously had an upper GI bleed in the past for she also states at that time show EGD and colonoscopy there is no significant findings on the colonoscopy. She has been taking Cipro and Flagyl. States she feels like she has not gotten any better and possibly gotten somewhat worse. MD elicited complaint: abdominal pain Onset (ago): day(s) Location: LLQ Quality: cramping Exacerbating factors: nothing Relieving factors: nothing Associated Symptoms: Reports bloating, GI cramping, nausea and vomiting; Denies anorexia, belching, change in bowel habits, change in stool character, chills, coffee ground emesis, constipation, diarrhea, dyspepsia, dysuria, excessive flatus, fever(s), heartburn, hematochezia, hematuria, hematemesis, fecal incontinence, loose stools, melena, poor appetite and syncope Review of Systems 2 Const: Denies: fever(s) or chills Card: Denies: syncope Resp: Denies: dyspnea GI: Reports: abdominal pain, nausea, vomiting, bloating and GI cramping; Denies: hematemesis, coffee ground emesis, heartburn, diarrhea, constipation, belching, excessive flatus, fecal incontinence, change in bowel habits, change in stool character, hematochezia or melena : Denies: flank pain, dysuria, urinary frequency, urinary urgency or hematuria Musc: Denies: neck pain or back pain Skin/Breast: Denies: rash PFSH ED 2 PFSH: Medical History (Updated 03/12/24 @ 17:10 by Filiberto Glasgow MD) Hemorrhagic cyst of left ovary Demyelinating disease of central nervous system Rheumatoid arthritis Chronic migraine without aura, intractable, with status migrainosus Immunization counseling High risk medication use Positive LOKESH (antinuclear antibody) Inflammatory arthritis Epidermoid cyst of face surgically removed Anxiety Depression Stomach ulcer No pertinent past medical history Surgical History H/O tubal ligation History of cholecystectomy History of appendectomy History of delivery History of hysterectomy History of tonsillectomy Family History Mother Colon cancer Diabetes Hyperlipidemia Hypertension Stroke Heart disease Father Diabetes Hypertension Thyroid disease Denies family history of Clotting disorder Chronic kidney disease (CKD) Bleeding disorder Social History Smoking and tobacco/nicotine status: current every day tobacco/nicotine user cigarettes Substance/Drug Use: never Physical Exam 2 Const: COMMON NORMALS: no acute distress GENERAL APPEARANCE: cooperative and comfortable ORIENTATION/CONSCIOUSNESS: Yes awake, Yes oriented to person, Yes oriented to place and Yes oriented to time HENMT: COMMON NORMALS: normocephalic, atraumatic and hearing grossly normal bilaterally HEAD & SCALP: normocephalic and atraumatic Resp: COMMON NORMALS: normal respiratory effort, No retractions, No use of accessory muscles and clear to auscultation bilaterally AUSCULTATION: clear to auscultation bilaterally Cardio: COMMON NORMALS: regular rate, regular rhythm and No murmurs present (Cardio) RATE: regular rate RHYTHM: regular rhythm GI: COMMON NORMALS: No hepatosplenomegaly present AUSCULTATION: Yes normoactive bowel sounds PALPATION: Yes Tenderness to palpation present (GI) (LLQ - no gaurding or rebound), No Guarding due to palpation present (GI) and Yes No hepatosplenomegaly present Extremity: COMMON NORMALS: normal to inspection, capillary refill normal, no clubbing, cyanosis or edema, no calf tenderness and no pedal edema Neuro: SENSORIUM/ORIENTATION: Yes oriented to person, Yes oriented to place and Yes oriented to time Skin: COMMON NORMALS: no rashes or lesions noted GENERAL SKIN EXAM: no rashes or lesions noted Course 2 Vital Signs: Vital signs: Vital Signs Temperature 97.6 F 03/12/24 13:56 Pulse Rate 72 03/12/24 17:14 Respiratory Rate 18 03/12/24 17:14 Blood Pressure 148/84 03/12/24 17:14 Pulse Oximetry 96 03/12/24 17:14 Oxygen Delivery Me thod Room Air 03/12/24 17:14 MDM - Abdominal Pain Medical Decision Making CT scan shows progression of diverticulitis with fluid collection but no definitive abscess or perforation. She is failing outpatient therapy at this point. We have some limitations in antibiotic selection due to her allergies. Discussed Dr. Glasgow will start her on meropenem DC the Cipro and Flagyl. IV fluids pain medications and nausea medication discussed with patient will admit orders written Differential Diagnosis Likely abdominal pain and diverticulitis Medical Records I reviewed the patient's medical records. Lab Data I reviewed the patient's lab results. 03/12/24 14:20 Labs/Radiology: Radiology Impressions Abdomen/Pelvis CT 03/12/24 14:08 IMPRESSION: 1. Evolving features of acute sigmoid diverticulitis. No abscess or perforation evident. 2. Stable minor findings as above. Chest X-Ray 03/12/24 14:08 IMPRESSION: 1. Normal chest. Laboratory Results WBC 11.35 10^3/uL (3.29-11.43) 03/12/24 14:20 RBC 4.90 10^6/uL (3.85-5.65) 03/12/24 14:20 Hgb 15.60 g/dL (11.27-16.99) 03/12/24 14:20 Hct 47.0 % (36-47) 03/12/24 14:20 MCV 95.9 fl (85-98) 03/12/24 14:20 MCH 31.8 pg (27-33) 03/12/24 14:20 MCHC 33.2 g/dL (30-55) 03/12/24 14:20 RDW 13.0 % (12.1-15.1) 03/12/24 14:20 Plt Count 212 10^3/cmm (157-399) 03/12/24 14:20 MPV 10.5 fL (7.4-10.4) H 03/12/24 14:20 Neut % (Auto) 64.6 % 03/12/24 14:20 Lymph % (Auto) 29.6 % 03/12/24 14:20 [place] % (Auto) 3.3 % 03/12/24 14:20 Eos % (Auto) 1.7 % 03/12/24 14:20 Baso % (Auto) 0.4 % 03/12/24 14:20 Neut # (Auto) 7.35 10^3/uL (1.8-7.7) 03/12/24 14:20 Lymph # (Auto) 3.4 10^3/uL (0.8-4.8) 03/12/24 14:20 [place] # (Auto) 0.4 10^3/uL (0.2-0.9) 03/12/24 14:20 Eos # (Auto) 0.2 10^3/uL (0.0-0.8) 03/12/24 14:20 Baso # (Auto) 0.0 10^3/uL (0.0-0.1) 03/12/24 14:20 Nucleated RBC % (auto) 0 % 03/12/24 14:20 Nucleated RBCs # 0.0 /100WBC 03/12/24 14:20 Lactic Acid 2.3 mmol/L (0.5-2.2) H 03/12/24 14:20 All radiology interpretation(s) finalized by discharge Discharge Plan Discharge Condition: Stable Prescriptions: No Action Humira 40 mg/0.8 mL syringe kit 40 mg SUBCUT Q7D Rx Instructions: SATURDAY acetaminophen [Tylenol] 325 mg tablet 325 mg PO QID PRN (Reason: Pain) ibuprofen 200 mg tablet 400 mg PO Q6H PRN (Reason: Pain) ascorbic acid (vitamin C) 500 mg capsule 50 mg PO DAILY fluticasone propionate [Flonase Allergy Relief] 50 mcg/actuation spray,suspension 2 spray intranasal DAILY Qty: 16 0RF Rx Instructions: administer into each nostril cetirizine [Zyrtec] 10 mg tablet 10 mg PO DAILY Qty: 30 0RF erythromycin 5 mg/gram (0.5 %) ointment 1 applic ophthalmic (eye) DAILY Qty: 3.5 0RF ondansetron 4 mg tablet,disintegrating 4 mg PO Q6H PRN (Reason: nausea and vomiting) Qty: 14 0RF meloxicam 7.5 mg tablet 7.5 mg PO .Twice daily PRN (Reason: pain) Qty: 14 0RF diclofenac sodium 75 mg tablet,delayed release (DR/EC) 75 mg PO Q12H PRN (Reason: pain) Qty: 20 0RF hydrocodone-acetaminophen 5-325 mg tablet 1 tab PO Q6H PRN (Reason: pain) Qty: 14 0RF metronidazole 500 mg tablet 500 mg PO Q8H 7 Days Qty: 21 0RF Cipro 500 mg tablet 500 mg PO BID Qty: 14 0RF ondansetron 4 mg tablet,disintegrating 4 mg PO Q6H PRN (Reason: nausea and vomiting) Qty: 14 0RF ondansetron HCl 4 mg tablet 4 mg PO Q6H PRN (Reason: nausea and vomiting) Qty: 20 0RF Referrals: Briana Dumas DO [Primary Care Provider] - Coding Level of Care Code ED Socially Responsible [employer] for [facility] Cassidy
--- NOTE | 2024-03-12 14:08 | CTR_ITS ---
PROCEDURE INFORMATION: Exam: CT Abdomen And Pelvis Without Contrast Exam date and time: 03/12/2024 3:55 PM Age: 33 years old Clinical indication: Abdominal pain; Generalized; Additional info: Abd pain/diverticulitis TECHNIQUE: Imaging protocol: Computed tomography of the abdomen and pelvis without contrast. Radiation optimization: All CT scans at this facility use at least one of these dose optimization techniques: automated exposure control; mA and/or kV adjustment per patient size (includes targeted exams where dose is matched to clinical indication); or iterative reconstruction. COMPARISON: CT abdomen pelvis w con* [id number] 03/09/2024 3:46 PM RADIATION DOSE METRICS: Total DLP (mGy-cm): 1681.3 FINDINGS: Lungs: No significant pathology at the imaged lung bases. Liver: Hepatic steatosis. Gallbladder and biliary ducts: Prior cholecystectomy. No biliary dilatation. Pancreas: No significant pancreatic pathology. Spleen: No significant splenic pathology. Adrenal glands: 1.6 cm left adrenal adenoma superimposed on diffuse adenomatous changes of the left adrenal unchanged compared with the prior exam. Mild thickening of the right adrenal medial limb likely representing adenomatous changes as well. Kidneys and ureters: No significant renal pathology. Stomach and bowel: Suture line associated with the cecum suggesting prior appendectomy. Colonic diverticulosis without evidence of focal inflammatory change. Localized area of fat infiltration surrounding the distal sigmoid colon on series 6, images 76 through 81 in the presence of multiple diverticula a pattern suggestive of is a small pocket of complex fluid this region measuring 1.4 cm on series 6, image 81 without well-defined margination or enhancing wall . Appendix: See Stomach and bowel finding. Intraperitoneal space: No free air. No ascites. Vasculature: No abdominal aortic aneurysm. Lymph nodes: Borderline bilateral inguinal adenopathy noted without change. Urinary bladder: Urinary bladder is nondistended limiting assessment of the wall. Reproductive: Prior hysterectomy. No significant adnexal pathology. Bones/joints: Mild bilateral hip degenerative change again noted Soft tissues: Small fat containing umbilical hernia. CT/CT abdomen pelvis wo con [id number] IMPRESSION: 1. Evolving features of acute sigmoid diverticulitis. No abscess or perforation evident. 2. Stable minor findings as above.
--- NOTE | 2024-03-12 14:08 | XR_ITS ---
WS: [id number] Exam: XR chest 1V portable [id number] Date/Time of Exam: 03/12/2024 2:09 PM Reason For Exam: dyspnea/cough Comparison 12/07/2022. Lungs are clear and fully expanded. Normal cardiomediastinal silhouette. No pleural effusions. Normal bony structures. XR/XR chest 1V portable [id number] IMPRESSION: 1. Normal chest.
[2024-03-12 14:33] LABS: Basophils % 0.4 %; Eosinophils # 0.2 10^3/uL (0.0-0.8); Eosinophils % 1.7 %; Lymphocytes # 3.4 10^3/uL (0.8-4.8); Lymphocytes % 29.6 %; Mean Corpuscular HGB Conc 33.2 g/dL (30-55); Mean Corpuscular Hemoglobin 31.8 pg (27-33); Mean Corpuscular Volume 95.9 fl (85-98); Mean Platelet Volume 10.5 fL (7.4-10.4); Monocytes # 0.4 10^3/uL (0.2-0.9); Monocytes % 3.3 %; Neutrophils # 7.35 10^3/uL (1.8-7.7); Neutrophils % 64.6 %; Nucleated Red Blood Cells % 0 %; Platelet Count 212 10^3/cmm (157-399); White Blood Count 11.35 10^3/uL (3.29-11.43)
[2024-03-12 14:51] LABS: Lactic Sepsis W/Reflex 2.3 mmol/L (0.5-2.2)
[2024-03-12] MEDS: sodium chloride 0.9% 1,000 ML 999 ML IV (15:33)
[2024-03-12] MEDS: ondansetron 2 mg/ML SDV 2 mL 4 MG IVP ×2 (15:34→21:01)
[2024-03-12 16:17] LABS: Reflex Lactate Order REFLEX LACTIC ORDERD
--- NOTE | 2024-03-12 17:08 | P.HP_ITS ---
Providers/Chief Complaint 2 Primary Care Provider: Briana Dumas DO Chief Complaint: n/v, abd pain, back pain,gotten worse since saturday History of Present Illness Ivy Duque is a 33 year old female with past history of morbid obesity, rheumatoid arthritis on ira presented to the hospital for the second time in the last few days for abdominal pain along with nausea, vomiting and diarrhea. Symptoms started on Saturday after she ate rare steak. Does not have any other family is having similar complaints. She was seen in the ER few days ago and was discharged on oral ciprofloxacin and Flagyl. Even being on antibiotics her symptoms continue to worsen so she presented back to the ER today. Review of Systems 2 General: Reports: 10 or more systems reviewed and unremarkable except in HPI and below Const: Denies: fever(s), chills, body aches, change in appetite, change in weight, malaise, night sweats, diaphoresis, change in sleep pattern, daytime sleepiness or snoring Eyes: Denies: change in vision, blurry vision, photophobia, eye discomfort or eye discharge ENMT: Denies: throat pain, enlarged tonsils, hoarseness, mouth pain, oral sores, dry mouth, tinnitus, nasal congestion or post nasal drip Card: Denies: chest pain, palpitations, irregular heart rhythm, edema, swelling of feet/ankles, lightheadedness, syncope, pre-syncope, dyspnea on exertion, orthopnea, leg pain with exertion or acrocyanosis Resp: Denies: dyspnea, productive cough, non-productive cough, wheezing, stridor, pain on inspiration, change in phlegm color, hemoptysis or chest congestion GI: Denies: abdominal pain, nausea, vomiting, hematemesis, coffee ground emesis, dysphagia, heartburn, diarrhea, constipation, bloating, GI cramping, change in bowel habits, pain on defecation, hematochezia or melena : Denies: flank pain, dysuria, urinary frequency, urinary urgency, urinary hesitancy, nocturia or hematuria Musc: Denies: neck pain, back pain, extremity pain, joint pain, joint swelling, joint redness, joint stiffness or limited range of motion Neuro: Denies: headache(s), numbness in extremities, weakness in extremities, sensory changes, lack of coordination, difficulty walking, frequent falls, dizziness, vertigo, confusion, Slurred speech present, difficulty communicating thoughts or seizure-like activity Psych: Denies: anxiety, depression, mood swings, panic attacks, hopelessness or irritability Endo: Denies: polyuria, polydipsia, tired all the time, cold intolerance, excessive sweating, flushing or heat intolerance [place]/Lymph: Denies: easy bruising or easy bleeding All/Imm: Denies: tongue swelling, facial swelling or acute wheezing Medications/Allergies Home Medications Medication Instructions Recorded Confirmed Last Taken Type acetaminophen 325 mg tablet 325 mg PO QID PRN Pain 08/14/21 02/06/24 Unknown History (Tylenol) adalimumab 40 mg/0.8 mL 40 mg SUBCUT Q7D 08/14/21 02/06/24 08/25/23 History subcutaneous syringe kit (Humira) ascorbic acid (vitamin C) 500 mg 50 mg PO DAILY 08/14/21 02/06/24 08/30/23 History capsule ibuprofen 200 mg tablet 400 mg PO Q6H PRN Pain 08/14/21 02/06/24 Unknown History ondansetron HCl 4 mg tablet 4 mg PO Q6H PRN nausea and 08/28/23 02/06/24 Unknown Rx vomiting #20 tabs ondansetron 4 mg disintegrating 4 mg PO Q6H PRN nausea and 08/31/23 02/06/24 Unknown Rx tablet vomiting #14 tabs meloxicam 7.5 mg tablet 7.5 mg PO .Twice daily PRN pain 10/11/23 02/06/24 Unknown Rx #14 tabs diclofenac sodium 75 mg 75 mg PO Q12H PRN pain #20 tabs 12/11/23 02/06/24 Unknown Rx tablet,delayed release cetirizine 10 mg tablet (Zyrtec) 10 mg PO DAILY #30 tabs 01/11/24 02/06/24 Unknown Rx fluticasone propionate 50 2 spray intranasal DAILY #16 grams 01/11/24 02/06/24 Unknown Rx mcg/actuation nasal spray,suspension (Flonase Allergy Relief) erythromycin 5 mg/gram (0.5 %) eye 1 applic ophthalmic (eye) DAILY 02/06/24 02/06/24 Unknown Rx ointment (3.5 gram tube) #3.5 grams ciprofloxacin HCl 500 mg tablet 500 mg PO BID #14 tabs 06/24/24 Unknown Rx (Cipro) hydrocodone 5 mg-acetaminophen 325 1 tab PO Q6H PRN pain #14 tabs 03/09/24 Unknown Rx mg tablet metronidazole 500 mg tablet 500 mg PO Q8H 7 days #21 tabs 03/09/24 Unknown Rx ondansetron 4 mg disintegrating 4 mg PO Q6H PRN nausea and 03/09/24 Unknown Rx tablet vomiting #14 tabs Allergies Allergy/AdvReac Type Severity Reaction Status Date / Time amoxicillin Allergy HIVES Verified 03/12/24 14:02 cephalexin [From Keflex] Allergy Unknown Verified 03/12/24 14:02 Penicillins Allergy HIVES Verified 03/12/24 14:02 Sulfa (Sulfonamide Allergy Unknown Verified 03/12/24 14:02 Antibiotics) sulfamethoxazole Allergy Unknown Verified 03/12/24 14:02 [From Bactrim] tramadol Allergy ADR-Swelling Verified 03/12/24 14:02 of the Eye trimethoprim [From Bactrim] Allergy Unknown Verified 03/12/24 14:02 ketorolac [From Toradol] AdvReac ADR-Swelling Verified 03/12/24 14:02 of the Eye/ SWEATING PFSH Acute 2 PFSH: Medical History (Updated 03/12/24 @ 17:10 by Filiberto Glasgow MD) Hemorrhagic cyst of left ovary Demyelinating disease of central nervous system Rheumatoid arthritis Chronic migraine without aura, intractable, with status migrainosus Immunization counseling High risk medication use Positive LOKESH (antinuclear antibody) Inflammatory arthritis Epidermoid cyst of face surgically removed Anxiety Depression Stomach ulcer No pertinent past medical history Surgical History H/O tubal ligation History of cholecystectomy History of appendectomy History of delivery History of hysterectomy History of tonsillectomy Family History Mother Colon cancer Diabetes Hyperlipidemia Hypertension Stroke Heart disease Father Diabetes Hypertension Thyroid disease Denies family history of Clotting disorder Chronic kidney disease (CKD) Bleeding disorder Social History Smoking and tobacco/nicotine status: current every day tobacco/nicotine user cigarettes Substance/Drug Use: never Vitals/I&O/Wt Last Vital Signs Temp 97.6 F 03/12/24 13:56 Pulse 77 03/12/24 16:41 Resp 18 03/12/24 13:56 BP 168/93 03/12/24 16:41 Pulse Ox 90 03/12/24 16:41 O2 Del Method Room Air 03/12/24 16:41 03/12/24 03/12/24 03/12/24 06:59 14:59 22:59 Intake Total 499.5 / 499.5 Balance 499.5 / 499.5 Weight last 48 hrs Weight 149.685 kg Physical Exam 2 Narrative: General: No acute distress, AO x3, morbidly obese HEENT: PERRLA, pupils bilaterally equal and reactive Chest: Normal vesicular breath sounds, no added sounds, equal good air entry bilaterally CVS: S1-S2 regular, no murmurs, no tachycardia, no gallops, no rubs Abdomen: Soft, nontender, no organomegaly, bowel sounds present Neuro: No focal deficits, no facial deformity, AO x3, power 5/5 in all limbs Data 03/12/24 14:20 Micro: Microbiology 03/12/24 14:24 Blood Culture - Preliminary Blood SPECIMEN COLLECTED 03/12/24 14:20 Blood Culture - Preliminary Blood SPECIMEN COLLECTED A&P Assessment and plan (1) Diverticulitis: With failure to outpatient oral ciprofloxacin and Flagyl. Patient is on Humira as an outpatient. CT abdomen done today shows evolving diverticulitis with possible intra- abdominal collection. Surgery consulted from the ER. Patient is allergic to penicillin. Check MRSA swab, blood culture. Check stool studies. Start on IV Zosyn. Patient does give history of penicillin allergy in the past but does not remember what happened. As per her she had some allergy when she was a child but has tried amoxicillin since then and did fine with that. She is agreeable to try Zosyn for now. Clear liquid diet. Zofran as needed, Protonix daily. Morphine 2 mg IV every 4 hours as needed, home dose of [place]. (2) Obesity, morbid, BMI 50 or higher: (3) Intra-abdominal collection: (4) Failure of outpatient treatment: Attestations 2 Medical Necessity Statement*: Admission for more than 2 midnights for management of diverticulitis with failure to outpatient treatment and intra-abdominal collection Diagnoses Diverticulitis K57.92 Obesity, morbid, BMI 50 or higher E66.01 Intra-abdominal collection R18.8 Failure of outpatient treatment Z78.9
[2024-03-12] MEDS: morphine 4 mg/mL SDV 1 mL IVP ×2 (17:09→21:01)
[2024-03-12] MEDS: meropenem 1,000 MG in sodium chloride 0.9% (plus) 50 ML 100 MG IV (17:14)
--- NOTE | 2024-03-12 17:26 | P.CONIM_ITS ---
Providers/Reason For Consult 2 Consulting Physician/Specialty*: General surgery Reason for Consult*: Acute diverticulitis Primary Care Provider: Briana Dumas DO History of Present Illness History of Present Illness Ivy Duque is a 33 year old female who presented about 3 days ago to the emergency department with acute severity colitis, she was started on p.o. antibiotics but since then she has complained of increased abdominal pain and fever. She presents now again and a CT scan done in the emergency room showed evidence of a possible 1.4 cm complex fluid collection near the sigmoid consistent with the possibility of complicated diverticulitis. I was consulted for this finding. Review of Systems 2 General: Reports: 10 or more systems reviewed and unremarkable except in HPI and below Medications/Allergies Home Medications Medication Instructions Recorded Confirmed Last Taken Type acetaminophen 325 mg tablet 325 mg PO QID PRN Pain 08/14/21 02/06/24 Unknown History (Tylenol) adalimumab 40 mg/0.8 mL 40 mg SUBCUT Q7D 08/14/21 02/06/24 08/25/23 History subcutaneous syringe kit (Humira) ascorbic acid (vitamin C) 500 mg 50 mg PO DAILY 08/14/21 02/06/24 08/30/23 History capsule ibuprofen 200 mg tablet 400 mg PO Q6H PRN Pain 08/14/21 02/06/24 Unknown History ondansetron HCl 4 mg tablet 4 mg PO Q6H PRN nausea and 08/28/23 02/06/24 Unknown Rx vomiting #20 tabs ondansetron 4 mg disintegrating 4 mg PO Q6H PRN nausea and 08/31/23 02/06/24 Unknown Rx tablet vomiting #14 tabs meloxicam 7.5 mg tablet 7.5 mg PO .Twice daily PRN pain 10/11/23 02/06/24 Unknown Rx #14 tabs diclofenac sodium 75 mg 75 mg PO Q12H PRN pain #20 tabs 12/11/23 02/06/24 Unknown Rx tablet,delayed release cetirizine 10 mg tablet (Zyrtec) 10 mg PO DAILY #30 tabs 01/11/24 02/06/24 Unknown Rx fluticasone propionate 50 2 spray intranasal DAILY #16 grams 01/11/24 02/06/24 Unknown Rx mcg/actuation nasal spray,suspension (Flonase Allergy Relief) erythromycin 5 mg/gram (0.5 %) eye 1 applic ophthalmic (eye) DAILY 02/06/24 02/06/24 Unknown Rx ointment (3.5 gram tube) #3.5 grams ciprofloxacin HCl 500 mg tablet 500 mg PO BID #14 tabs 03/09/24 Unknown Rx (Cipro) hydrocodone 5 mg-acetaminophen 325 1 tab PO Q6H PRN pain #14 tabs 03/09/24 Unknown Rx mg tablet metronidazole 500 mg tablet 500 mg PO Q8H 7 days #21 tabs 03/09/24 Unknown Rx ondansetron 4 mg disintegrating 4 mg PO Q6H PRN nausea and 03/09/24 Unknown Rx tablet vomiting #14 tabs Allergies Allergy/AdvReac Type Severity Reaction Status Date / Time amoxicillin Allergy HIVES Verified 03/12/24 14:02 cephalexin [From Keflex] Allergy Unknown Verified 03/12/24 14:02 Penicillins Allergy HIVES Verified 03/12/24 14:02 Sulfa (Sulfonamide Allergy Unknown Verified 03/12/24 14:02 Antibiotics) sulfamethoxazole Allergy Unknown Verified 03/12/24 14:02 [From Bactrim] tramadol Allergy ADR-Swelling Verified 03/12/24 14:02 of the Eye trimethoprim [From Bactrim] Allergy Unknown Verified 03/12/24 14:02 ketorolac [From Toradol] AdvReac ADR-Swelling Verified 03/12/24 14:02 of the Eye/ SWEATING PFSH Acute 2 PFSH: Medical History (Updated 03/12/24 @ 17:10 by Filiberto Glasgow MD) Hemorrhagic cyst of left ovary Demyelinating disease of central nervous system Rheumatoid arthritis Chronic migraine without aura, intractable, with status migrainosus Immunization counseling High risk medication use Positive LOKESH (antinuclear antibody) Inflammatory arthritis Epidermoid cyst of face surgically removed Anxiety Depression Stomach ulcer No pertinent past medical history Surgical History H/O tubal ligation History of cholecystectomy History of appendectomy History of delivery History of hysterectomy History of tonsillectomy Family History Mother Colon cancer Diabetes Hyperlipidemia Hypertension Stroke Heart disease Father Diabetes Hypertension Thyroid disease Denies family history of Clotting disorder Chronic kidney disease (CKD) Bleeding disorder Social History Smoking and tobacco/nicotine status: current every day tobacco/nicotine user cigarettes Substance/Drug Use: never Vitals/I&O/Wt Last Vital Signs Temp 97.6 F 03/12/24 13:56 Pulse 72 03/12/24 17:14 Resp 18 03/12/24 17:14 BP 148/84 03/12/24 17:14 Pulse Ox 96 03/12/24 17:14 O2 Del Method Room Air 03/12/24 17:14 03/12/24 03/12/24 03/12/24 06:59 14:59 22:59 Intake Total 499.5 / 499.5 Balance 499.5 / 499.5 Weight last 48 hrs Weight 330 lb Physical Exam 2 GI: OTHER: Extensive abdominal pannus, abdomen is soft, distention unable to be assessed due to patient body habitus, tender especially in the left hemiabdomen. No evidence of peritonitis. Data 03/12/24 14:20 Micro: Microbiology 03/12/24 14:24 Blood Culture - Preliminary Blood SPECIMEN COLLECTED 03/12/24 14:20 Blood Culture - Preliminary Blood SPECIMEN COLLECTED A&P Assessment and plan (1) Obesity, morbid, BMI 50 or higher: (2) Intra-abdominal collection: Plan After complete history, physical examination and review of all available clinical data the following is my assessment. Patient has a clinical picture consistent with acute diverticulitis with a small perisigmoid fluid collection, due to size of the collection I agree on IV antibiotics for management. I think over the first 24 hours patient should be n.p.o. with IV hydration, once abdominal pain starts improving and if there is no other symptoms of infection we can advance slowly to clear liquid diet and then to regular diet. In the case of clinical deterioration worsening of clinical status we may reconsider rescanning to decide between surgical intervention and IR drainage. Patient was informed of the findings and possible treatment needs. She shows understanding and is agreeable for admission and IV antibiotics. -Please keep patient n.p.o. until tomorrow -IV fluids -IV antibiotics, agree with meropenem -Pain control as needed -I have not encouraged the patient to ambulate as tolerated -Daily CBC -General surgery will continue to follow Coding Level of Care Code Acute Code for Chg Fwd Diagnoses Obesity, morbid, BMI 50 or higher E66.01 Intra-abdominal collection R18.8
[2024-03-12 17:54] LABS: Lactic Acid level (Lactate) 0.7 mmol/L (0.5-2.2)
[2024-03-12 18:02] LABS: Procalcitonin 0.03 ng/mL (0-0.5)
[2024-03-12] MEDS: piperacillin-tazobactam 3.375 GM in sodium chloride 0.9% (plus) 50 ML IV (18:24)
[2024-03-12 18:39] LABS: Glucose Urine UA Norm (Normal); Ketones Urine Negative (Negative); Protein Urine Neg (Negative); Specific Gravity, Urine 1.015 (1.005-1.030); Urine Appearance Slightly Cloudy (CLEAR); Urine Color Yellow (Yellow); pH Urine 7 (5-7)
[2024-03-12 18:40] LABS: Add Urine Microscopic? YES; Bilirubin Urine Neg (Negative); Blood Urine Trace (Negative); Leukocyte Esterase Urine Negative (Negative); Nitrate Urine Negative; Urobilinogen Urine Norm (Negative)
[2024-03-12 18:46] LABS: Add Urine Culture? No; RBC Urine 0-4 /hpf (0-2); Squamous Epithelial Cell Urine 0-4 /hpf (0-5); WBC Urine RARE /hpf (0-5)
[2024-03-12] MEDS: HYDROcodone-acetaminophen 5-325 mg Tablet 1 TAB PO (19:13)
[2024-03-12] MEDS: heparin 5,000 unit/mL INJ 1 mL 5000 UNIT SUBCUT (19:13)
[2024-03-12 19:34] LABS: Iron 59 ug/dL (37-145); Percent Saturation 25.5 % (20-50); Thyroid Stimulating Hormone 5.71 uIU/mL (0.27-4.20); Total Iron Binding Capacity 231 mcg/dl; Unsaturated Iron Binding 172 ug/dL (112-347); Vitamin B12 384 pg/mL (232-1245)
[2024-03-12] MEDS: sodium chloride 0.9% 1,000 ML 125 ML IV (20:57)
[2024-03-12] MEDS: pantoprazole 40 mg SDV IVP (21:02)
[2024-03-12] MEDS: lanolin oint 7 gm 1 APPLIC TOPICAL (22:10)
[2024-03-13] VITALS (10 sets, daily range): BP systolic 112–164; BP diastolic 69–98; PULSE 64–91; RESP 16–20; TEMP 36.3–36.8; O2SAT 94–100; BMI 55.6
[2024-03-13] MEDS: piperacillin-tazobactam 3.375 GM in sodium chloride 0.9% (plus) 50 ML IV ×3 (01:41→17:52)
[2024-03-13] MEDS: heparin 5,000 unit/mL INJ 1 mL 5000 UNIT SUBCUT ×3 (01:42→17:52)
[2024-03-13] MEDS: morphine 4 mg/mL SDV 1 mL IVP (03:35)
[2024-03-13] MEDS: sodium chloride 0.9% 1,000 ML 125 ML IV ×3 (03:36→19:37)
[2024-03-13 05:38] LABS: Basophils % 0.4 %; Eosinophils # 0.2 10^3/uL (0.0-0.8); Hematocrit 41.8 % (36-47); Lymphocytes # 3.5 10^3/uL (0.8-4.8); Lymphocytes % 35.7 %; Mean Corpuscular HGB Conc 32.8 g/dL (30-55); Mean Corpuscular Hemoglobin 31.5 pg (27-33); Mean Corpuscular Volume 96.1 fl (85-98); Monocytes # 0.5 10^3/uL (0.2-0.9); Monocytes % 5.5 %; Neutrophils # 5.51 10^3/uL (1.8-7.7); Neutrophils % 56.2 %; Nucleated Red Blood Cells % 0 %; Platelet Count 196 10^3/cmm (157-399); Red Blood Count 4.35 10^6/uL (3.85-5.65); White Blood Count 9.82 10^3/uL (3.29-11.43)
[2024-03-13 05:58] LABS: Estmated Average Glucose 105; Hemoglobin A1C 5.3 % (4.0-6.0)
[2024-03-13 06:01] LABS: Alanine Aminotransferase 36 U/L (0-33); Alkaline Phosphatase 82 U/L (35-105); Anion Gap 10.8 (5-19); Aspartate Amino Transferase 34 U/L (0-32); Blood Urea Nitrogen 8 mg/dL (6-20); Calcium 7.8 mg/dL (8.5-10.5); Carbon Dioxide 26 mmol/L (22-29); Chloride 108 mmol/L (98-107); Creatinine Clr Calc Pharmacy 179.5901; Globulin 3.2 g/dL (1.3-4.6); Glomerular Filtration Rate 95.2 mL/min (90-130); Glucose 84 mg/dL (65-115); Magnesium 1.9 mg/dL (1.7-2.3); Osmolality Calculated 290 mOsm/kg (285-295); Phosphorus 2.9 mg/dL (2.5-4.5); Potassium 3.8 mmol/L (3.5-5.1); Sodium 141 mmol/L (136-145); Total Bilirubin 0.5 mg/dL (0.15-1.2); Total Protein 6.2 g/dL (6.6-8.7)
[2024-03-13 06:06] LABS: Cholesterol 112 mg/dL (0-200); HDL Cholesterol 40 mg/dL (60-100); LDL Cholesterol Calculated 52 mg/dL (50-129); Triglycerides 99 mg/dL (0-150)
[2024-03-13 06:10] LABS: Procalcitonin 0.04 ng/mL (0-0.5)
[2024-03-13 06:19] LABS: Folate Level 6.6 ng/mL (4.8-37.3)
--- NOTE | 2024-03-13 06:52 | P.PN_ITS ---
Subjective 2 Subjective: Patient seen this morning, she is hospital day 1 for sigmoid diverticulitis with a small fluid collection. Patient is feeling much better, nausea has improved, abdominal pain has improved. No bowel movement since yesterday. Vitals/I&O/Wt Last Vital Signs Temp 97.8 F 03/13/24 04:00 Pulse 64 03/13/24 05:18 Resp 20 H 03/13/24 04:00 BP 135/79 03/13/24 04:00 Pulse Ox 94 03/13/24 04:00 O2 Del Method Room Air 03/13/24 04:00 03/12/24 03/12/24 03/13/24 14:59 22:59 06:59 Intake Total 1100.0 / 1100.0 881.25 / 1981.25 Output Total 550 / 550 Balance 1100.0 / 1100.0 331.25 / 1431.25 Weight last 48 hrs Weight 355 lb 4 oz Weight 352 lb 9.6 oz Weight 330 lb Physical Exam 2 GI: OTHER: Abdominal examination is benign, abdomen is soft nontender and nondistended at this time. Data 03/13/24 05:30 03/13/24 05:30 Micro: Microbiology 03/12/24 14:24 Blood Culture - Preliminary Blood SPECIMEN COLLECTED 03/12/24 14:20 Blood Culture - Preliminary Blood SPECIMEN COLLECTED A&P Assessment and plan (1) Obesity, morbid, BMI 50 or higher: (2) Intra-abdominal collection: Plan Patient is showing very good progression with IV antibiotics for sigmoid diverticulitis with pericolonic abscess. Her white count trended down to 9.8 today. Has not had any more episodes of diarrhea. Will agree to advance to clear liquid diet today, the patient is tolerated clinical diet today and there is no changes in clinical status by tomorrow she can be advanced to regular diet prior to discharge. -Clear liquid diet today -Pain control as needed -Ambulate as tolerated -All other care per primary Attestations 2 Medical Necessity Statement*: Per medical team Coding Level of Care Code Acute Code for Chg Fwd Diagnoses Obesity, morbid, BMI 50 or higher E66.01 Intra-abdominal collection R18.8
[2024-03-13] MEDS: oxyCODONE-APAP 5-325 mg Tablet 1 TAB PO (10:32)
--- NOTE | 2024-03-13 15:13 | P.PN_ITS ---
Subjective 2 Subjective: No acute vents overnight. Patient started on clear liquid diet as per surgical team today. Patient denies any nausea, vomiting. Complaining of abdominal pain. No further episodes of diarrhea. Vitals/I&O/Wt Last Vital Signs Temp 98.0 F 03/13/24 07:02 Pulse 91 03/13/24 11:08 Resp 17 03/13/24 11:08 BP 154/89 03/13/24 11:08 Pulse Ox 98 03/13/24 11:08 O2 Del Method Room Air 03/13/24 11:08 03/13/24 03/13/24 03/13/24 06:59 14:59 22:59 Intake Total 881.25 / 1981.25 1240 / 1240 Output Total 550 / 550 Balance 331.25 / 1431.25 1240 / 1240 Weight last 48 hrs Weight 161.139 kg Weight 159.937 kg Weight 149.685 kg Physical Exam 2 Narrative: General: No acute distress, AO x3, morbidly obese HEENT: PERRLA, pupils bilaterally equal and reactive Chest: Normal vesicular breath sounds, no added sounds, equal good air entry bilaterally CVS: S1-S2 regular, no murmurs, no tachycardia, no gallops, no rubs Abdomen: Soft, nontender, no organomegaly, bowel sounds present Neuro: No focal deficits, no facial deformity, AO x3, power 5/5 in all limbs Data 03/13/24 05:30 03/13/24 05:30 Micro: Microbiology 03/12/24 14:24 Blood Culture - Preliminary Blood NEGATIVE TO DATE 03/12/24 14:20 Blood Culture - Preliminary Blood NEGATIVE TO DATE 03/12/24 11:05 Stool Lactoferrin - Final Stool Occult Blood (FIT) - Final 03/12/24 18:21 Bacterial Antigens - Final Urine Kidney A&P Assessment and plan (1) Diverticulitis: With failure to outpatient oral ciprofloxacin and Flagyl. Patient is on Humira as an outpatient. CT abdomen done today shows evolving diverticulitis with possible intra- abdominal collection. Surgery consulted from the ER. Patient has tolerated Zosyn well. Not allergic to penicillin. Will continue IV antibiotics for now. Follow-up blood culture, MRSA swab. Appreciate surgical recommendations.. Clear liquid diet. Zofran as needed, Protonix daily. Morphine 2 mg IV every 4 hours as needed, switch from [place] to oxycodone 5 mg every 8 hours as needed. (2) Obesity, morbid, BMI 50 or higher: (3) Intra-abdominal collection: (4) Failure of outpatient treatment: Plan Clear liquid diet Full code Heparin 5000 every 8 hourly for DVT prophylaxis Protonix for PUD prophylaxis Penicillin removed for patient's allergy list. Attestations 2 Medical Necessity Statement*: Requires further hospitalization for management diverticulitis with intra- abdominal collection. Diagnoses Diverticulitis K57.92 Obesity, morbid, BMI 50 or higher E66.01 Intra-abdominal collection R18.8 Failure of outpatient treatment Z78.9
[2024-03-13] MEDS: pantoprazole 40 mg SDV IVP (19:39)
[2024-03-13] MEDS: morphine 4 mg/mL SDV 1 mL 2 MG IVP (19:40)
[2024-03-13] MEDS: ondansetron 2 mg/ML SDV 2 mL 4 MG IVP (23:11)
[2024-03-14] VITALS (9 sets, daily range): BP systolic 131–151; BP diastolic 79–94; PULSE 63–72; RESP 15–18; TEMP 36.4–36.9; O2SAT 91–98
[2024-03-14] MEDS: piperacillin-tazobactam 3.375 GM in sodium chloride 0.9% (plus) 50 ML IV ×3 (02:40→20:56)
[2024-03-14] MEDS: heparin 5,000 unit/mL INJ 1 mL 5000 UNIT SUBCUT (02:40)
[2024-03-14] MEDS: oxyCODONE-APAP 5-325 mg Tablet 1 TAB PO ×3 (02:45→21:45)
[2024-03-14 05:44] LABS: Basophils % 0.3 %; Eosinophils # 0.2 10^3/uL (0.0-0.8); Eosinophils % 1.9 %; Hematocrit 43.2 % (36-47); Lymphocytes # 3.5 10^3/uL (0.8-4.8); Lymphocytes % 33.6 %; Mean Corpuscular HGB Conc 32.4 g/dL (30-55); Mean Corpuscular Hemoglobin 31.6 pg (27-33); Mean Corpuscular Volume 97.5 fl (85-98); Mean Platelet Volume 10.6 fL (7.4-10.4); Monocytes # 0.4 10^3/uL (0.2-0.9); Monocytes % 3.9 %; Neutrophils # 6.34 10^3/uL (1.8-7.7); Nucleated Red Blood Cells % 0 %; Platelet Count 199 10^3/cmm (157-399); Red Blood Count 4.43 10^6/uL (3.85-5.65); Red Cell Distribution Width 12.7 % (12.1-15.1); White Blood Count 10.55 10^3/uL (3.29-11.43)
[2024-03-14] MEDS: sodium chloride 0.9% 1,000 ML 125 ML IV ×2 (05:47→22:46)
[2024-03-14 06:01] LABS: Alanine Aminotransferase 37 U/L (0-33); Albumin Level 3.2 g/dL (3.5-5.2); Alkaline Phosphatase 79 U/L (35-105); Aspartate Amino Transferase 28 U/L (0-32); Blood Urea Nitrogen 5 mg/dL (6-20); Carbon Dioxide 26 mmol/L (22-29); Chloride 105 mmol/L (98-107); Creatinine Clr Calc Pharmacy 180.2928; Glomerular Filtration Rate 95.2 mL/min (90-130); Glucose 90 mg/dL (65-115); Osmolality Calculated 285 mOsm/kg (285-295); Sodium 139 mmol/L (136-145); Total Bilirubin 0.5 mg/dL (0.15-1.2); Total Protein 6.2 g/dL (6.6-8.7)
[2024-03-14 06:03] LABS: Anion Gap 11.8 (5-19); Potassium 3.8 mmol/L (3.5-5.1)
--- NOTE | 2024-03-14 07:45 | P.PN_ITS ---
Subjective 2 Subjective: Is a 33-year-old female admitted with acute diverticulitis with a small perisigmoid abscess. Patient doing much better, abdominal pain is almost completely gone, she had 2 bowel movements yesterday 1 was regular and the second 1 was soft. Tolerating clear liquid diet. Vitals/I&O/Wt Last Vital Signs Temp 97.5 F L 03/14/24 04:47 Pulse 63 03/14/24 04:47 Resp 16 03/14/24 04:47 BP 139/84 03/14/24 04:47 Pulse Ox 91 03/14/24 04:47 O2 Del Method Room Air 03/14/24 04:47 03/13/24 03/14/24 03/14/24 22:59 06:59 14:59 Intake Total 1470 / 2710 1450 / 4160 50 / 50 Balance 1470 / 2710 1450 / 4160 50 / 50 Weight last 48 hrs Weight 357 lb 7 oz Weight 355 lb 4 oz Weight 355 lb 4 oz Weight 352 lb 9.6 oz Weight 330 lb Physical Exam 2 Narrative: General : Patient is well developed , no acute distress, oriented x3 Head : Normal cephalic, a-traumatic. Nose : Mucous membranes are without erythema. Lungs : Equal chest rise bilaterally, no use of accessory muscles, trachea is midline. CV : Rate and rhythm are normal. Abdomen : There is minimal tenderness in the left lower quadrant. Extremities : No edema. Upper extremities are normal bilaterally. Back : non-tender to palpation, no CVA tenderness. Data 03/14/24 05:39 03/14/24 05:39 Micro: Microbiology 03/12/24 14:24 Blood Culture - Preliminary Blood NEGATIVE TO DATE 03/12/24 14:20 Blood Culture - Preliminary Blood NEGATIVE TO DATE 03/12/24 11:05 Stool Lactoferrin - Final Stool Occult Blood (FIT) - Final 03/12/24 18:21 Bacterial Antigens - Final Urine Kidney A&P Assessment and plan (1) Obesity, morbid, BMI 50 or higher: (2) Diverticulitis: (3) Intra-abdominal collection: Plan Patient is showing very good progression after IV antibiotic management of complicated sigmoid diverticulitis. Patient will likely require at least 24 more hours of hospital stay for IV antibiotics but from the general surgery standpoint I think it is okay to advance her diet to carb controlled diet. No additional surgical intervention is expected or indicated at this time. -Advance diet to carb controlled diet -Continue IV antibiotics -All other management per primary Attestations 2 Medical Necessity Statement*: Per primary team Coding Level of Care Code 81030 Diagnoses Obesity, morbid, BMI 50 or higher E66.01 Diverticulitis K57.92 Intra-abdominal collection R18.8
--- NOTE | 2024-03-14 13:30 | P.PN_ITS ---
Subjective 2 Subjective: No acute events overnight. Patient continues to do better. Abdominal pain is better. No further nausea or vomiting currently. Tolerating clear liquid diet well. Vitals/I&O/Wt Last Vital Signs Temp 98.2 F 03/14/24 11:45 Pulse 70 03/14/24 11:45 Resp 18 03/14/24 13:03 BP 151/94 03/14/24 11:45 Pulse Ox 94 03/14/24 11:45 O2 Del Method Room Air 03/14/24 11:45 03/13/24 03/14/24 03/14/24 22:59 06:59 14:59 Intake Total 1470 / 2710 1450 / 4160 1210 / 1210 Balance 1470 / 2710 1450 / 4160 1210 / 1210 Weight last 48 hrs Weight 160.572 kg Weight 162.131 kg Weight 161.139 kg Weight 161.139 kg Weight 159.937 kg Weight 149.685 kg Physical Exam 2 Narrative: General: No acute distress, AO x3, morbidly obese HEENT: PERRLA, pupils bilaterally equal and reactive Chest: Normal vesicular breath sounds, no added sounds, equal good air entry bilaterally CVS: S1-S2 regular, no murmurs, no tachycardia, no gallops, no rubs Abdomen: Soft, nontender, no organomegaly, bowel sounds present Neuro: No focal deficits, no facial deformity, AO x3, power 5/5 in all limbs Data 03/14/24 05:39 03/14/24 05:39 Micro: Microbiology 03/12/24 14:24 Blood Culture - Preliminary Blood NEGATIVE TO DATE 03/12/24 14:20 Blood Culture - Preliminary Blood NEGATIVE TO DATE 03/12/24 11:05 Stool Lactoferrin - Final Stool Occult Blood (FIT) - Final 03/12/24 18:21 Bacterial Antigens - Final Urine Kidney A&P Assessment and plan (1) Diverticulitis: With failure to outpatient oral ciprofloxacin and Flagyl. Patient is on Humira as an outpatient. CT abdomen done today shows evolving diverticulitis with possible intra- abdominal collection. Surgery consulted from the ER. Patient has tolerated Zosyn well. Not allergic to penicillin. Will continue IV antibiotics for at least 24 hours more. Most likely will discharge on oral antibiotics for next 1 week to 10 days. Follow-up blood culture, MRSA swab. Appreciate surgical recommendations.. Advance to regular diet today. Zofran as needed, Protonix daily. Morphine 2 mg IV every 4 hours as needed, switch from [place] to oxycodone 5 mg every 8 hours as needed. (2) Obesity, morbid, BMI 50 or higher: (3) Intra-abdominal collection: (4) Failure of outpatient treatment: Plan Regular diet Full code Heparin 5000 every 8 hourly for DVT prophylaxis Protonix for PUD prophylaxis Penicillin removed for patient's allergy list. Attestations 2 Medical Necessity Statement*: Requires further hospitalization for management of diverticulitis with intra- abdominal collection with concern for abscess Diagnoses Diverticulitis K57.92 Obesity, morbid, BMI 50 or higher E66.01 Intra-abdominal collection R18.8 Failure of outpatient treatment Z78.9
[2024-03-14 15:49] LABS: Methicillin-Resist S.aureu PCR NOT DETECTED (NOT DETECTED)
[2024-03-14] MEDS: pantoprazole 40 mg SDV IVP (20:59)
[2024-03-14] MEDS: diphenhydrAMINE 25 mg Capsule PO (21:37)
[2024-03-15] MEDS: heparin 5,000 unit/mL INJ 1 mL 5000 UNIT SUBCUT (02:43)
[2024-03-15 04:14] VITALS: BP 129/72; PULSE 57; RESP 15; TEMP 36.4; O2SAT 100
[2024-03-15] MEDS: piperacillin-tazobactam 3.375 GM in sodium chloride 0.9% (plus) 50 ML IV (05:26)
--- NOTE | 2024-03-15 07:43 | P.PN_ITS ---
Subjective 2 Subjective: Excellent clinical progression, tolerating diet, having regular bowel movements, abdominal pain has resolved. Vitals/I&O/Wt Last Vital Signs Temp 97.5 F L 03/15/24 04:14 Pulse 57 L 03/15/24 04:14 Resp 15 03/15/24 04:14 BP 129/72 03/15/24 04:14 Pulse Ox 100 03/15/24 04:14 O2 Del Method Room Air 03/15/24 04:14 03/14/24 03/15/24 03/15/24 22:59 06:59 14:59 Intake Total 1800 / 3010 1290 / 4300 Balance 1800 / 3010 1290 / 4300 Weight last 48 hrs Weight 354 lb 6 oz Weight 354 lb Weight 357 lb 7 oz Weight 355 lb 4 oz Physical Exam 2 GI: OTHER: Abdomen is soft nontender nondistended. Data 03/14/24 05:39 03/14/24 05:39 A&P Assessment and plan (1) Diverticulitis: Plan 33-year-old female with complicated acute diverticulitis, patient is doing very well, tolerating diet, having regular bowel movements, white count is normal. She has been afebrile. Patient is cleared for discharge from the general surgery standpoint, she will still need to complete 7 to 10-day course of antibiotics as outpatient, she can follow-up in my clinic in 2 weeks and at that time we will discuss the need for colonoscopy in the future. Attestations 2 Medical Necessity Statement*: Per medical team Coding Level of Care Code Acute Code for [facility] Diagnoses Diverticulitis K57.92
[2024-03-15 08:29] VITALS: BP 148/82; PULSE 57; RESP 17; TEMP 36.3; O2SAT 93
[2024-03-15 11:46] VITALS: BP 149/85; PULSE 64; RESP 18; TEMP 36.4; O2SAT 97
--- NOTE | 2024-03-15 13:13 | P.DS_ITS ---
Discharge Providers Date of Admission: 03/12/24 17:35 Date of Discharge: March 15, 2024 Attending Provider at Admission: Filiberto Glasgow MD Attending Provider at Discharge: Filiberto Glasgow MD Primary Care Provider: Briana Dumas DO Diagnoses at Discharge Discharge Diagnosis (1) Diverticulitis: Status: Acute Reason for Visit 2 Reason for Visit: n/v, abd pain, back pain,gotten worse since saturday Hospital Course Hospital Course Ivy Duque is a 33 year old female with past history of morbid obesity, rheumatoid arthritis on presented to the hospital for the second time in the last few days for abdominal pain along with nausea, vomiting and diarrhea. Symptoms started on Saturday after she ate rare steak. Does not have any other family is having similar complaints. She was seen in the ER few days ago and was discharged on oral ciprofloxacin and Flagyl. Even being on antibiotics her symptoms continue to worsen so she presented back to the ER today. Patient was admitted to the hospital further evaluation and management of diverticulitis with concerns for possible fluid/abscess collection. Surgery was consulted and she was started on broad-spectrum antibiotics. Patient responded well to the treatment and his symptoms have been resolving while being on antibiotics. She is able to tolerate regular diet for more than 24 hours. She has remained afebrile. She has been discharged hemodynamically stable condition on oral antibiotics for next 7 days with advised to follow-up with surgical team in the next 2 weeks. She is advised to take multiple small meals going forward for at least next 10 days. Physical Exam Narrative: General: No acute distress, AO x3, morbidly obese HEENT: PERRLA, pupils bilaterally equal and reactive Chest: Normal vesicular breath sounds, no added sounds, equal good air entry bilaterally CVS: S1-S2 regular, no murmurs, no tachycardia, no gallops, no rubs Abdomen: Soft, nontender, no organomegaly, bowel sounds present Neuro: No focal deficits, no facial deformity, AO x3, power 5/5 in all limbs Discharge Data Studies Completed and Pending Completed Studies During Hospitalization Category Date Time Status CT abdomen pelvis wo con [id number] Stat Cat Scan 03/12/24 14:08 Completed XR chest 1V portable [id number] Stat Exams 03/12/24 14:08 Completed Pending at discharge Category Date Time Status Blood Culture Stat Lab 03/12/24 14:24 Results OVA and Parasites, Conc and PE Routine Lab 03/12/24 11:05 Received Salmonella / Shigella / Campy Routine Lab 03/12/24 11:05 Received Radiology Impressions Abdomen/Pelvis CT 03/12/24 14:08 IMPRESSION: 1. Evolving features of acute sigmoid diverticulitis. No abscess or perforation evident. 2. Stable minor findings as above. Chest X-Ray 03/12/24 14:08 IMPRESSION: 1. Normal chest. Microbiology 03/12/24 14:24 Blood Blood Culture - Preliminary NEGATIVE TO DATE 03/12/24 14:20 Blood Blood Culture - Preliminary NEGATIVE TO DATE 03/12/24 11:05 Stool Stool Lactoferrin - Final 03/12/24 11:05 Stool Occult Blood (FIT) - Final 03/12/24 18:21 Urine Kidney Bacterial Antigens - Final Laboratory Results WBC 10.55 10^3/uL (3.29-11.43) 03/14/24 05:39 RBC 4.43 10^6/uL (3.85-5.65) 03/14/24 05:39 Hgb 14.00 g/dL (11.27-16.99) 03/14/24 05:39 Hct 43.2 % (36-47) 03/14/24 05:39 MCV 97.5 fl (85-98) 03/14/24 05:39 MCH 31.6 pg (27-33) 03/14/24 05:39 MCHC 32.4 g/dL (30-55) 03/14/24 05:39 RDW 12.7 % (12.1-15.1) 03/14/24 05:39 Plt Count 199 10^3/cmm (157-399) 03/14/24 05:39 MPV 10.6 fL (7.4-10.4) H 03/14/24 05:39 Neut % (Auto) 60.0 % 03/14/24 05:39 Lymph % (Auto) 33.6 % 03/14/24 05:39 [place] % (Auto) 3.9 % 03/14/24 05:39 Eos % (Auto) 1.9 % 03/14/24 05:39 Baso % (Auto) 0.3 % 03/14/24 05:39 Neut # (Auto) 6.34 10^3/uL (1.8-7.7) 03/14/24 05:39 Lymph # (Auto) 3.5 10^3/uL (0.8-4.8) 03/14/24 05:39 [place] # (Auto) 0.4 10^3/uL (0.2-0.9) 03/14/24 05:39 Eos # (Auto) 0.2 10^3/uL (0.0-0.8) 03/14/24 05:39 Baso # (Auto) 0.0 10^3/uL (0.0-0.1) 03/14/24 05:39 Nucleated RBC % (auto) 0 % 03/14/24 05:39 Nucleated RBCs # 0.0 /100WBC 03/14/24 05:39 Sodium 139 mmol/L (136-145) 03/14/24 05:39 Potassium 3.8 mmol/L (3.5-5.1) 03/14/24 05:39 Chloride 105 mmol/L (98-107) 03/14/24 05:39 Carbon Dioxide 26 mmol/L (22-29) 03/14/24 05:39 Anion Gap 11.8 (5-19) 03/14/24 05:39 BUN 5 mg/dL (6-20) L 03/14/24 05:39 Creatinine 0.7 mg/dL (0.5-0.9) 03/14/24 05:39 GFR Calculation 95.2 mL/min (90-130) 03/14/24 05:39 Glucose 90 mg/dL (65-115) 03/14/24 05:39 Estimat Average Glucose 105 03/13/24 05:30 Hemoglobin A1c 5.3 % (4.0-6.0) 03/13/24 05:30 Calculated Osmolality 285 mOsm/kg (285-295) 03/14/24 05:39 Lactic Acid 2.3 mmol/L (0.5-2.2) H 03/12/24 14:20 Lactic Acid (Sepsis) 0.7 mmol/L (0.5-2.2) 03/12/24 17:25 Calcium 8.0 mg/dL (8.5-10.5) L 03/14/24 05:39 Phosphorus 2.9 mg/dL (2.5-4.5) 03/13/24 05:30 Magnesium 1.9 mg/dL (1.7-2.3) 03/13/24 05:30 Iron 59 ug/dL (37-145) 03/12/24 17:25 TIBC 231 mcg/dl 03/12/24 17:25 % Saturation 25.5 % (20-50) 03/12/24 17:25 Unsat Iron Binding 172 ug/dL (112-347) 03/12/24 17:25 Total Bilirubin 0.5 mg/dL (0.15-1.2) 03/14/24 05:39 AST 28 U/L (0-32) 03/14/24 05:39 ALT 37 U/L (0-33) H 03/14/24 05:39 Alkaline Phosphatase 79 U/L (35-105) 03/14/24 05:39 Total Protein 6.2 g/dL (6.6-8.7) L 03/14/24 05:39 Albumin 3.2 g/dL (3.5-5.2) L 03/14/24 05:39 Globulin 3.0 g/dL (1.3-4.6) 03/14/24 05:39 Triglycerides 99 mg/dL (0-150) 03/13/24 05:30 Cholesterol 112 mg/dL (0-200) 03/13/24 05:30 LDL Cholesterol, Calc 52 mg/dL (50-129) 03/13/24 05:30 HDL Cholesterol 40 mg/dL (60-100) L 03/13/24 05:30 LDL/HDL Ratio 1.30 RATIO (0.00-3.22) 03/13/24 05:30 Cholesterol/HDL Ratio 2.80 mg/dL (0.0-4.40) 03/13/24 05:30 Vitamin B12 384 pg/mL (232-1245) 03/12/24 17:25 Folate 6.6 ng/mL (4.8-37.3) 03/13/24 05:30 Procalcitonin 0.04 ng/mL (0-0.5) 03/13/24 05:30 TSH 5.71 uIU/mL (0.27-4.20) H 03/12/24 17:25 Urine Color Yellow (Yellow) 03/12/24 18:21 Urine Appearance Slightly cloudy (CLEAR) 03/12/24 18:21 Urine pH 7 (5-7) 03/12/24 18:21 Ur Specific [place] 1.015 (1.005-1.030) 03/12/24 18:21 Urine Protein Neg (Negative) 03/12/24 18:21 Urine Glucose (UA) Norm (Normal) 03/12/24 18:21 Urine Ketones Negative (Negative) 03/12/24 18:21 Urine Blood Trace (Negative) H 03/12/24 18:21 Urine Nitrate Negative 03/12/24 18:21 Urine Bilirubin Neg (Negative) 03/12/24 18:21 Urine Urobilinogen Norm mg/dL (Negative) 03/12/24 18:21 Ur Leukocyte Esterase Negative (Negative) 03/12/24 18:21 Urine RBC 0-4 /hpf (0-2) H 03/12/24 18:21 Urine WBC Rare /hpf (0-5) 03/12/24 18:21 Ur Squamous Epith Cells 0-4 /hpf (0-5) H 03/12/24 18:21 Amorphous Sediment Not Reportable 03/12/24 18:21 Urine Bacteria None /hpf (NONE) 03/12/24 18:21 Urine Mucus None /hpf 03/12/24 18:21 C. difficile (PCR) Cancelled 03/12/24 11:05 MRSA (PCR) Not detected (NOT DETECTED) 03/12/24 00:00 Vitals Last Vital Signs Temp 97.6 F 03/15/24 11:46 Pulse 64 03/15/24 11:46 Resp 18 03/15/24 11:46 BP 149/85 03/15/24 11:46 Pulse Ox 97 03/15/24 11:46 O2 Del Method Room Air 03/15/24 11:46 Discharge Plan Discharge Patient Disposition: Home Condition: Stable Prescriptions: New amoxicillin-pot clavulanate 875-125 mg tablet 1 tab PO Q12H Qty: 14 0RF Continued acetaminophen [Tylenol] 325 mg tablet 325 mg PO QID PRN (Reason: Pain) ibuprofen 200 mg tablet 400 mg PO Q6H PRN (Reason: Pain) hydrocodone-acetaminophen 5-325 mg tablet 1 tab PO Q6H PRN (Reason: pain) Qty: 14 0RF ondansetron 4 mg tablet,disintegrating 4 mg PO Q6H PRN (Reason: nausea and vomiting) Qty: 14 0RF Zyrtec 10 mg tablet 10 mg PO DAILY PRN (Reason: allergies) meloxicam 7.5 mg tablet 7.5 mg PO BID PRN (Reason: pain) fluticasone propionate [Flonase Allergy Relief] 50 mcg/actuation spray,suspension 2 spray intranasal DAILY PRN (Reason: allergies) Rx Instructions: administer into each nostril Held Humira 40 mg/0.8 mL syringe kit 40 mg SUBCUT Q7D Discontinued metronidazole 500 mg tablet 500 mg PO Q8H 7 Days Qty: 21 0RF ciprofloxacin HCl [Cipro] 500 mg tablet 500 mg PO BID Qty: 14 0RF Discharge Orders: Discharge Order (Routine); Ordered 03/15/24 Ordered By: Filiberto Glasgow Referrals: Geoff Bassett MD [Physician] - 2 weeks Briana Dumas DO [Primary Care Provider] - 4-7 days (Please call for an follow-up appointment with 4 to 7 days.Thank you. ) Patient Instructions: Opioid Safety Activity Restrictions/Additional Instructions: Follow-up with surgical team within next 2 weeks. Take Augmentin for the antibiotic twice daily for next 1 week. Take multiple small meals. Discharge Attestations Time Spent in Discharge Care*: greater than 30 min Specific Discharge Activities: educating patient, discussing with pcp/other providers, discussing with therapeutic case manager/social workers/dc planners, documenting/other paperwork and evaluating patient/reviewing data Status at Discharge: Cognitive status at discharge: cognitively intact , Behavioral status at discharge: cooperative , Functional status at discharge: independent ambulation , Overall status at discharge: patient is back to baseline Quality Metrics Clinical Quality Measures [ No reported AMI, CVA or VTE this stay] Coding Level of Care Code Acute Code for [facility] Diagnoses Diverticulitis K57.92
[2024-03-15 13:26] VITALS: BP 149/85; PULSE 64; RESP 18; TEMP 36.4; O2SAT 97
== END 2024-03-15 13:55 | disposition home or self-care (01) | DRG 392 ==
LOC: ER 14:07 → NP 17:35 → MEDSURG 17:39
PROVIDERS: Admitting Provider Student in an Organized Health Care Education/Training Program; Emergency Provider Family Medicine; PCP Family Medicine; Visit Provider Student in an Organized Health Care Education/Training Program
DX: K57.32 Diverticulitis of large intestine without perforation or abscess without bleeding (principal); Z68.43 Body mass index [BMI] 50.0-59.9, adult; M06.9 Rheumatoid arthritis, unspecified; F41.9 Anxiety disorder, unspecified; F32.A Depression, unspecified; F17.210 Nicotine dependence, cigarettes, uncomplicated; E66.01 Morbid (severe) obesity due to excess calories; Z88.0 Allergy status to penicillin
CPT/HCPCS: 36415; 71045; 74176; 80053; 80061; 81001; 82274; 82607; 82746; 83036; 83540; 83550; 83605; 83630; 83735; 84100; 84145; 84443; 85025; 86403; 87040; 87045; 87177; 87209; 87427; 87449; 87641; 94664; 96365; 96372; 96375; 99285; C9113; J1644; J2185; J2270; J2405; J2543; J7030

== ENCOUNTER 2024-04-07 11:38 | Emergency (ER) | payer MEDICAID, SELFPAY ==
[2024-04-07 12:06] VITALS: BP 170/103; PULSE 86; TEMP 36.6; O2SAT 98; BMI 51.7
--- NOTE | 2024-04-07 12:10 | ED_ITS ---
HPI - Abdominal Pain 2 General: Chief Complaint: Abdominal Pain Stated Complaint: NV / abd pain Time Seen by Provider: 04/07/24 11:44 Source: patient Mode of arrival: ambulatory Limitations: no limitations History of Present Illness: Patient is a 33-year-old female presents to ED today with complaint of abdominal pain, nausea, vomiting. Patient was seen here in the emergency department on 03/09 and diagnosed with diverticulitis. She was placed on Cipro and Flagyl. She returned 2 to 3 days later with worsening symptoms. Repeat CT imaging showing the development of a small fluid collection this patient was hospitalized for failed outpatient therapy and complicated diverticulitis. She was consulted on while in the hospital by Dr. Bassett. She was started on broad-spectrum antibiotics/Meropenem. Patient states following discharge she was not discharged with any antibiotics however documentation states she was supposed to receive 7 days of Augmentin. Patient states she was feeling good following her discharge but approximately 6 days ago began developing abdominal pain, nausea and began vomiting yesterday evening. She reports fevers of up to 102 yesterday. She is afebrile here upon presentation. She does have follow up appointment wiht Dr. Bassett tomorrow. MD elicited complaint: abdominal pain Pertinent past history: other (diverticulitis) Onset (ago): day(s) Pain Consistency: constant Location: Diffuse Severity: moderate Quality: cramping Radiation: none Migration to: no migration Exacerbating factors: nothing Relieving factors: nothing Associated Symptoms: Reports chills, GI cramping, fever(s) (yesterday of up to 102), nausea and vomiting; Denies diarrhea, dysuria, hematochezia, hematemesis and melena Related Data: Patient : No Review of Systems 2 Const: Reports: fever(s) (yesterday of up to 102) and chills; Denies: body aches, fatigue or malaise Card: Denies: chest pain Resp: Denies: dyspnea GI: Reports: abdominal pain, nausea, vomiting, GI cramping and pain on defecation; Denies: hematemesis, diarrhea, hematochezia or melena : Denies: flank pain, difficulty voiding, dysuria, urinary frequency, urinary urgency or urinary hesitancy Musc: Denies: neck pain, back pain, extremity pain or joint pain Skin/Breast: Denies: rash Neuro: Denies: headache(s), numbness in extremities, weakness in extremities, sensory changes or dizziness PFSH ED 2 PFSH: Medical History Hemorrhagic cyst of left ovary Demyelinating disease of central nervous system Rheumatoid arthritis Chronic migraine without aura, intractable, with status migrainosus Immunization counseling High risk medication use Positive LOKESH (antinuclear antibody) Inflammatory arthritis Epidermoid cyst of face surgically removed Anxiety Depression Stomach ulcer No pertinent past medical history Surgical History H/O tubal ligation History of cholecystectomy History of appendectomy History of delivery History of hysterectomy History of tonsillectomy Family History Mother Colon cancer Diabetes Hyperlipidemia Hypertension Stroke Heart disease Father Diabetes Hypertension Thyroid disease Denies family history of Clotting disorder Chronic kidney disease (CKD) Bleeding disorder Social History Smoking and tobacco/nicotine status: current every day tobacco/nicotine user cigarettes Substance/Drug Use: never Physical Exam 2 Const: COMMON NORMALS: patient oriented x3, no limitations, alert and well nourished GENERAL APPEARANCE: cooperative NUTRITIONAL APPEARANCE: obese morbidly obese (BMI 51.8) Resp: COMMON NORMALS: normal respiratory effort and clear to auscultation bilaterally AUSCULTATION: clear to auscultation bilaterally Cardio: COMMON NORMALS: regular rate and regular rhythm RATE: regular rate RHYTHM: regular rhythm GI: COMMON NORMALS: Normal to inspection, nondistended, normoactive bowel sounds present and Soft to palpation INSPECTION: Yes normal to inspection PALPATION: Yes Soft to palpation and Yes Tenderness to palpation present (GI) (diffusely but mainly across lower abdomen) OTHER: exam limited due to body habitus : COMMON NORMALS: Yes no CVA tenderness BLADDER/KIDNEY EXAM: Yes no CVA tenderness Back/Pelvis: COMMON NORMALS: no CVA tenderness Neuro: COMMON NORMALS: patient oriented x3 SENSORIUM/ORIENTATION: Yes alert Course 2 Consultations: Consultation #1: Dr. Bassett-recommends clear liquid diet, pain/nausea meds, IV Zosyn prior to discharge, discharge on Augmentin and he will see tomorrow as scheduled Vital Signs: Vital signs: Vital Signs Temperature 97.8 F 04/07/24 12:06 Pulse Rate 72 04/07/24 13:36 Blood Pressure 176/82 04/07/24 13:36 Pulse Oximetry 97 04/07/24 13:36 Oxygen Delivery Me thod Room Air 04/07/24 13:36 MDM - Abdominal Pain Medical Decision Making Patient is a 33-year-old female here for abdominal pain, nausea, vomiting. Abdominal pain starting approximately 6 days ago. She states it feels similar to when she was diagnosed with diverticulitis last month. Vital signs are stable upon arrival apart from she is hypertensive. Blood work showed a white count of 13.4. Remainder of labs are unremarkable. CT scan showing no improvement of her diverticulitis when compared to previous scan on 03/12. Discussed case with Dr. Bassett as he consulted on her during her last hospitalization and is scheduled to see her tomorrow. He recommends clear liquid diet, pain/nausea meds, and Augmentin and he will see tomorrow as scheduled. Requesting dose of IV Zosyn prior to discharge. Medical Records I reviewed the patient's medical records. Lab Data I reviewed the patient's lab results. 04/07/24 12:18 04/07/24 12:18 Labs/Radiology: Radiology Impressions Abdomen/Pelvis CT 04/07/24 12:26 IMPRESSION: 1. Study is compromised by body habitus. 2. Mild inflammatory changes within the distal sigmoid of acute diverticulitis. Mild progression since the prior study of 03/12/2024. No improvement. There is no abscess at this time. 3. No free fluid. 4. Prior appendectomy. 5. Prior cholecystectomy. 6. Stable LEFT adrenal mass which is probably an adenoma. Laboratory Results WBC 13.41 10^3/uL (3.29-11.43) H 04/07/24 12:18 RBC 4.59 10^6/uL (3.85-5.65) 04/07/24 12:18 Hgb 14.70 g/dL (11.27-16.99) 04/07/24 12:18 Hct 44.1 % (36-47) 04/07/24 12:18 MCV 96.1 fl (85-98) 04/07/24 12:18 MCH 32.0 pg (27-33) 04/07/24 12:18 MCHC 33.3 g/dL (30-55) 04/07/24 12:18 RDW 13.1 % (12.1-15.1) 04/07/24 12:18 Plt Count 191 10^3/cmm (157-399) 04/07/24 12:18 MPV 10.2 fL (7.4-10.4) 04/07/24 12:18 Neut % (Auto) 67.9 % 04/07/24 12:18 Lymph % (Auto) 25.4 % 04/07/24 12:18 [place] % (Auto) 4.9 % 04/07/24 12:18 Eos % (Auto) 1.2 % 04/07/24 12:18 Baso % (Auto) 0.3 % 04/07/24 12:18 Neut # (Auto) 9.10 10^3/uL (1.8-7.7) H 04/07/24 12:18 Lymph # (Auto) 3.4 10^3/uL (0.8-4.8) 04/07/24 12:18 [place] # (Auto) 0.7 10^3/uL (0.2-0.9) 04/07/24 12:18 Eos # (Auto) 0.2 10^3/uL (0.0-0.8) 04/07/24 12:18 Baso # (Auto) 0.0 10^3/uL (0.0-0.1) 04/07/24 12:18 Nucleated RBC % (auto) 0 % 04/07/24 12:18 Nucleated RBCs # 0.0 /100WBC 04/07/24 12:18 Sodium 139 mmol/L (136-145) 04/07/24 12:18 Potassium 3.6 mmol/L (3.5-5.1) 04/07/24 12:18 Chloride 106 mmol/L (98-107) 04/07/24 12:18 Carbon Dioxide 23 mmol/L (22-29) 04/07/24 12:18 Anion Gap 13.6 (5-19) 04/07/24 12:18 BUN 9 mg/dL (6-20) 04/07/24 12:18 Creatinine 0.6 mg/dL (0.5-0.9) 04/07/24 12:18 GFR Calculation 113.8 mL/min (90-130) 04/07/24 12:18 Glucose 109 mg/dL (65-115) 04/07/24 12:18 Calculated Osmolality 287 mOsm/kg (285-295) 04/07/24 12:18 Calcium 8.3 mg/dL (8.5-10.5) L 04/07/24 12:18 Total Bilirubin 0.5 mg/dL (0.15-1.2) 04/07/24 12:18 AST 14 U/L (0-32) 04/07/24 12:18 ALT 24 U/L (0-33) 04/07/24 12:18 Alkaline Phosphatase 89 U/L (35-105) 04/07/24 12:18 Total Protein 7.3 g/dL (6.6-8.7) 04/07/24 12:18 Albumin 3.4 g/dL (3.5-5.2) L 04/07/24 12:18 Globulin 3.9 g/dL (1.3-4.6) 04/07/24 12:18 Lipase 13 U/L (13-60) 04/07/24 12:18 HCG, Qual Negative (Negative) 04/07/24 12:18 Urine Color Yellow (Yellow) 04/07/24 13:30 Urine Appearance Slightly cloudy (CLEAR) 04/07/24 13:30 Urine pH 7 (5-7) 04/07/24 13:30 Ur Specific [place] 1.005 (1.005-1.030) 04/07/24 13:30 Urine Protein Neg (Negative) 04/07/24 13:30 Urine Glucose (UA) Norm (Normal) 04/07/24 13:30 Urine Ketones Negative (Negative) 04/07/24 13:30 Urine Blood 2+ (Negative) H 04/07/24 13:30 Urine Nitrate Negative (Negative) 04/07/24 13:30 Urine Bilirubin Neg (Negative) 04/07/24 13:30 Urine Urobilinogen 1 mg/dL (Negative) H 04/07/24 13:30 Ur Leukocyte Esterase Negative (Negative) 04/07/24 13:30 Urine RBC 0-4 /hpf (0-2) H 04/07/24 13:30 Urine WBC 0-4 /hpf (0-5) H 04/07/24 13:30 Ur Squamous Epith Cells 5-10 /hpf (0-5) H 04/07/24 13:30 Amorphous Sediment Not Reportable 04/07/24 13:30 Urine Bacteria 1+ /hpf (NONE) H 04/07/24 13:30 All radiology interpretation(s) finalized by discharge Discharge Plan Discharge Patient Disposition: Home Clinical Impression: Diverticulitis Condition: Stable Prescriptions: Continued hydrocodone-acetaminophen 5-325 mg tablet 1 tab PO Q6H PRN (Reason: pain) Qty: 14 0RF ondansetron 4 mg tablet,disintegrating 4 mg PO Q6H PRN (Reason: nausea and vomiting) Qty: 14 0RF amoxicillin-pot clavulanate 875-125 mg tablet 1 tab PO Q12H Qty: 14 0RF No Action Humira 40 mg/0.8 mL syringe kit 40 mg SUBCUT Q7D acetaminophen [Tylenol] 325 mg tablet 325 mg PO QID PRN (Reason: Pain) ibuprofen 200 mg tablet 400 mg PO Q6H PRN (Reason: Pain) Zyrtec 10 mg tablet 10 mg PO DAILY PRN (Reason: allergies) meloxicam 7.5 mg tablet 7.5 mg PO BID PRN (Reason: pain) fluticasone propionate [Flonase Allergy Relief] 50 mcg/actuation spray,suspension 2 spray intranasal DAILY PRN (Reason: allergies) Rx Instructions: administer into each nostril Discharge Orders: Discharge ED (Routine); Ordered 04/07/24 Ordered By: Karen Mitchell Referrals: Briana Dumas DO [Primary Care Provider] - Patient Instructions: Diverticulitis (DC), Opioid Safety, Pain Management Activity Restrictions/Additional Instructions: As we discussed I want you to do a clear liquid diet. You can discuss with Dr. Bassett tomorrow on for how long and when to advance as tolerated. As we discussed you have an appointment scheduled with him tomorrow morning. You were given a dose of IV antibiotics prior to discharge. You will be scheduled to take a dose of Augmentin later this evening. Coding Level of Care Code ED [employer] Cle[employer] Supervisor for Jessica Cassidy
--- NOTE | 2024-04-07 12:26 | CT_ITS ---
WS: [id number] CT ABDOMEN AND PELVIS WITH CONTRAST HISTORY: abdominal pain TECHNIQUE: Imaging performed of the abdomen and pelvis with IV contrast. Single phase imaging of the abdomen. Coronal and sagittal reformats are submitted. All CT scans at [facility] use at [address] one of these dose optimization techniques: automated exposure control; mA and/or kV adjustment per patient size (includes targeted exams where dose is matched to clinical indication); or iterative re construction. IV CONTRAST: Omnipaque 350; 100 mL IV. Oral contrast: No DLP: 1496.53 mGy.cm COMPARISON: 03/12/2024 Lower thorax: Lung bases are clear. Heart is normal size. No hiatal hernia. Liver/biliary system: Normal size liver. Focal fatty sparing along the falciform ligament. No bile du ct dilatation. Gallbladder: Prior cholecystectomy. Pancreas: Normal size pancreas and pancreatic duct. No adjacent inflammation. Spleen: Normal size spleen. No mass or infarct. Adrenal glands: Normal RIGHT adrenal gland. 1.4 cm nodule associated with the LEFT adrenal gland is u nchanged. Right kidney: Normal. Left kidney: Normal. Aorta: Normal. Lymphadenopathy: None. Free fluid: None. GI tract: Nondistended stomach. No small bowel obstruction. Prior appendectomy. Mild diffuse constipa tion without obstruction. There is hazy attenuation in the fat deep within the pelvis surrounding the sigmoid. Some of this hazy attenuation is artifact. There is a single loop of distal sigmoid which i s mildly thickened and edematous suspicious for focal acute colitis or diverticulitis. No associated abscess. Abdominal wall: Small umbilical hernia contains fat. Mild diastases of the ventral abdominal wall bel ow the umbilicus. Pelvis: Prior hysterectomy. Urinary bladder is mildly distended. Bones: Unremarkable. CT/CT abdomen pelvis w con* [id number] IMPRESSION: 1. Study is compromised by body habitus. 2. Mild inflammatory changes within the distal sigmoid of acute diverticulitis . Mild progression since the prior study of 03/12/2024. No improvement. There i s no abscess at this time. 3. No free fluid. 4. Prior appendectomy. 5. Prior cholecystectomy. 6. Stable LEFT adrenal mass which is probably an adenoma.
[2024-04-07 12:35] LABS: Basophils % 0.3 %; Eosinophils # 0.2 10^3/uL (0.0-0.8); Eosinophils % 1.2 %; Hematocrit 44.1 % (36-47); Lymphocytes # 3.4 10^3/uL (0.8-4.8); Lymphocytes % 25.4 %; Mean Corpuscular HGB Conc 33.3 g/dL (30-55); Mean Corpuscular Volume 96.1 fl (85-98); Mean Platelet Volume 10.2 fL (7.4-10.4); Monocytes # 0.7 10^3/uL (0.2-0.9); Monocytes % 4.9 %; Neutrophils % 67.9 %; Nucleated Red Blood Cells % 0 %; Platelet Count 191 10^3/cmm (157-399); Red Blood Count 4.59 10^6/uL (3.85-5.65); Red Cell Distribution Width 13.1 % (12.1-15.1); White Blood Count 13.41 10^3/uL (3.29-11.43)
[2024-04-07] MEDS: sodium chloride 0.9% 1,000 ML 999 ML IV (12:47)
[2024-04-07] MEDS: morphine 4 mg/mL SDV 1 mL IVP ×2 (12:47→15:26)
[2024-04-07] MEDS: ondansetron 2 mg/ML SDV 2 mL 4 MG IVP (12:47)
[2024-04-07 12:50] LABS: Alanine Aminotransferase 24 U/L (0-33); Albumin Level 3.4 g/dL (3.5-5.2); Alkaline Phosphatase 89 U/L (35-105); Anion Gap 13.6 (5-19); Aspartate Amino Transferase 14 U/L (0-32); Blood Urea Nitrogen 9 mg/dL (6-20); Calcium 8.3 mg/dL (8.5-10.5); Carbon Dioxide 23 mmol/L (22-29); Chloride 106 mmol/L (98-107); Globulin 3.9 g/dL (1.3-4.6); Glomerular Filtration Rate 113.8 mL/min (90-130); Glucose 109 mg/dL (65-115); Lipase 13 U/L (13-60); Osmolality Calculated 287 mOsm/kg (285-295); Potassium 3.6 mmol/L (3.5-5.1); Sodium 139 mmol/L (136-145); Total Bilirubin 0.5 mg/dL (0.15-1.2); Total Protein 7.3 g/dL (6.6-8.7)
[2024-04-07 13:01] LABS: HCG, Serum Qual Negative (Negative)
[2024-04-07] MEDS: iohexol 350 mg/mL 500 mL Btl (per mL) IV (13:12)
[2024-04-07 13:36] VITALS: BP 176/82; PULSE 72; O2SAT 97
[2024-04-07 14:01] LABS: Specific Gravity, Urine 1.005 (1.005-1.030); Urine Appearance Slightly Cloudy (CLEAR); Urine Color Yellow (Yellow); pH Urine 7 (5-7)
[2024-04-07 14:02] LABS: Add Urine Microscopic? YES; Bilirubin Urine Neg (Negative); Blood Urine 2+ (Negative); Glucose Urine UA Norm (Normal); Ketones Urine Negative (Negative); Leukocyte Esterase Urine Negative (Negative); Nitrate Urine Negative (Negative); Protein Urine Neg (Negative); Urobilinogen Urine 1 mg/dL (Negative)
[2024-04-07 14:18] LABS: Bacteria Urine 1+ /hpf; RBC Urine 0-4 /hpf (0-2); WBC Urine 0-4 /hpf (0-5)
[2024-04-07] MEDS: piperacillin-tazobactam 3.375 GM in sodium chloride 0.9% (plus) 50 ML IV (15:25)
[2024-04-07 15:50] VITALS: BP 132/97; PULSE 71; O2SAT 97
== END 2024-04-07 16:05 | disposition home or self-care (01) ==
PROVIDERS: Emergency Provider Physician Assistant; PCP Family Medicine
DX: K57.92 Diverticulitis of intestine, part unspecified, without perforation or abscess without bleeding (principal); F17.210 Nicotine dependence, cigarettes, uncomplicated
CPT/HCPCS: 36415; 74177; 80053; 81001; 83690; 84703; 85025; 96361; 96374; 96375; 96376; 99285; J2270; J2405; J2543; J7030; Q9967

== ENCOUNTER → 2024-06-02 14:47 | Outpatient (BNVA) | payer MEDICAID, SELFPAY | PROVIDERS: PCP Family Medicine | DX: Z20.822 Contact with and (suspected) exposure to COVID-19 (principal); J02.9 Acute pharyngitis, unspecified | CPT/HCPCS: 87426; 87880 ==

== ENCOUNTER 2024-06-06 21:29 | Emergency (ER) | payer MEDICAID, SELFPAY ==
[2024-06-06 21:39] VITALS: BP 100/59; PULSE 88; RESP 18; TEMP 36.6; O2SAT 98; BMI 53.4
[2024-06-06 21:45] LABS: Basophils % 0.3 %; Eosinophils # 0.3 10^3/uL (0.0-0.8); Eosinophils % 2.2 %; Hematocrit 47.6 % (36-47); Lymphocytes # 6.3 10^3/uL (0.8-4.8); Lymphocytes % 43.5 %; Mean Corpuscular HGB Conc 32.6 g/dL (30-55); Mean Corpuscular Hemoglobin 31.4 pg (27-33); Mean Corpuscular Volume 96.6 fl (85-98); Mean Platelet Volume 9.9 fL (7.4-10.4); Monocytes # 0.8 10^3/uL (0.2-0.9); Monocytes % 5.6 %; Neutrophils # 6.94 10^3/uL (1.8-7.7); Neutrophils % 48.1 %; Nucleated Red Blood Cells % 0 %; Platelet Count 220 10^3/cmm (157-399); Red Blood Count 4.93 10^6/uL (3.85-5.65)
[2024-06-06 22:01] LABS: HCG, Serum Qual Negative (Negative)
[2024-06-06 22:04] LABS: Alanine Aminotransferase 26 U/L (0-33); Albumin Level 3.5 g/dL (3.5-5.2); Alkaline Phosphatase 82 U/L (35-105); Anion Gap 13.8 (5-19); Aspartate Amino Transferase 18 U/L (0-32); Blood Urea Nitrogen 11 mg/dL (6-20); Calcium 8.7 mg/dL (8.5-10.5); Carbon Dioxide 25 mmol/L (22-29); Chloride 98 mmol/L (98-107); Creatinine Clr Calc Pharmacy 151.6766; Globulin 3.7 g/dL (1.3-4.6); Glomerular Filtration Rate 81.2 mL/min (90-130); Glucose 138 mg/dL (65-115); Lipase 24 U/L (13-60); Osmolality Calculated 278 mOsm/kg (285-295); Potassium 3.8 mmol/L (3.5-5.1); Sodium 133 mmol/L (136-145); Total Bilirubin 0.3 mg/dL (0.15-1.2); Total Protein 7.2 g/dL (6.6-8.7)
[2024-06-06 22:10] LABS: Slide Review Slide Review Perform
[2024-06-06 22:11] LABS: Bilirubin Urine Negative (Negative); Blood Urine Non-haemolysed trace (Negative); Glucose Urine UA Negative (Normal); Ketones Urine Negative (Negative); Leukocyte Esterase Urine Negative (Negative); Nitrate Urine Negative (Negative); Protein Urine Negative (Negative); Urine Appearance Cloudy (CLEAR); Urine Color Yellow (Yellow); pH Urine 5.5 (5-7)
[2024-06-06 22:13] LABS: Add Urine Microscopic? YES; Hyaline Casts Urine 0-4 /lpf; RBC Urine 51-100 /hpf (0-2); Universal Test for UA Present (0); WBC Urine 0-5 /hpf (0-5)
[2024-06-06 22:19] LABS: Bacteria Urine 1+ /hpf; Squamous Epithelial Cell Urine 15-25 /hpf (0-5)
[2024-06-06 22:20] LABS: Add Urine Culture? No; Mucus Urine TRACE /hpf
--- NOTE | 2024-06-06 22:23 | CTR_ITS ---
PROCEDURE INFORMATION: Exam: CT Abdomen And Pelvis With Contrast Exam date and time: 06/06/2024 10:51 PM Age: 34 years old Clinical indication: Nausea and vomiting; Abdominal pain; Localized; Left lower quadrant (llq); Prior surgery; Surgery date: 6+ months; Surgery type: Gb. Appy. Hysterectomy. Csection. Patient HX: C/O llq pain with n/v/d. History of diverticulitis. ; Additional info: Abd pain TECHNIQUE: Imaging protocol: Computed tomography of the abdomen and pelvis with contrast. Radiation optimization: All CT scans at this facility use at least one of these dose optimization techniques: automated exposure control; mA and/or kV adjustment per patient size (includes targeted exams where dose is matched to clinical indication); or iterative reconstruction. Contrast material: OMNI 350; Contrast volume: 100 ml; Contrast route: INTRAVENOUS (IV); COMPARISON: CT abdomen pelvis w con* [id number] 04/07/2024 1:10 PM RADIATION DOSE METRICS: Total DLP (mGy-cm): 1316.88 FINDINGS: Liver: Hepatic steatosis. Gallbladder and biliary ducts: Cholecystectomy. Pancreas: Normal. No ductal dilation. Spleen: Normal. No splenomegaly. Adrenal glands: Left adrenal stable 15 mm nodule, again likely reflecting a adenomas previously noted. Kidneys and ureters: Normal. No hydronephrosis. Stomach and bowel: Prominent fluid in the stomach and small bowel, please correlate for a gastroenteritis. Appendix: No evidence of appendicitis. Intraperitoneal space: Unremarkable. No free air. No significant fluid collection. Vasculature: Unremarkable. No abdominal aortic aneurysm. Lymph nodes: Unremarkable. No enlarged lymph nodes. Urinary bladder: Unremarkable as visualized. Reproductive: Unremarkable as visualized. Bones/joints: Unremarkable. No acute fracture. Soft tissues: Unremarkable. CT/CT abdomen pelvis w con* [id number] IMPRESSION: 1. Prominent fluid in the stomach and small bowel, please correlate for a gastroenteritis. 2. Left adrenal stable 15 mm nodule, again likely reflecting a adenomas previously noted. 3. Hepatic steatosis. 4. Cholecystectomy.
--- NOTE | 2024-06-06 22:25 | ED_ITS ---
HPI - Abdominal Pain 2 General: Chief Complaint: Abdominal Pain Stated Complaint: Lower abd pain Time Seen by Provider: 06/06/24 21:40 Source: patient Mode of arrival: ambulatory Limitations: no limitations History of Present Illness: 34-year-old female who states that she s tarted having left lower abdominal pain along with left flank pain that started yesterday morning. States she had 1 episode of vomiting states the pain is worsened is currently an 8 out of 10 is worse with palpation. She had a history diverticulitis in the past and this feels similar. She has had some mild dysuria as well Associated Symptoms: Reports diarrhea, dysuria, nausea and vomiting; Denies chills and fever(s) Related Data Home Medications Medication Instructions Recorded Confirmed acetaminophen 325 mg tablet 325 mg PO QID PRN Pain 08/14/21 06/02/24 (Tylenol) ibuprofen 200 mg tablet 400 mg PO Q6H PRN Pain 08/14/21 06/02/24 cetirizine 10 mg tablet (Zyrtec) 10 mg PO DAILY PRN allergies 03/12/24 06/02/24 fluticasone propionate 50 2 spray intranasal DAILY PRN 03/12/24 06/02/24 mcg/actuation nasal allergies spray,suspension (Flonase Allergy Relief) Previous Rx's Medication Instructions Recorded ondansetron 4 mg disintegrating 4 mg PO Q6H PRN nausea and 04/07/24 tablet vomiting #14 tabs polyethylene glycol 3350 17 17 g PO DAILY 30 days #238 grams 04/08/24 gram/dose oral powder (Miralax) prednisone 20 mg tablet 20 mg PO DAILY #5 tabs 06/02/24 ondansetron 4 mg disintegrating 4 mg PO Q6H PRN nausea and 06/07/24 tablet vomiting #14 tabs Allergies Allergy/AdvReac Type Severity Reaction Status Date / Time cephalexin [From Keflex] Allergy Unknown Verified 06/06/24 21:45 Sulfa (Sulfonamide Allergy Unknown Verified 06/06/24 21:45 Antibiotics) sulfamethoxazole Allergy Unknown Verified 06/06/24 21:45 [From Bactrim] tramadol Allergy ADR-Swelling Verified 06/06/24 21:45 of the Eye trimethoprim [From Bactrim] Allergy Unknown Verified 06/06/24 21:45 ketorolac [From Toradol] AdvReac ADR-Swelling Verified 06/06/24 21:45 of the Eye/ SWEATING Review of Systems 2 Const: Denies: fever(s), chills, body aches or change in appetite ENMT: Denies: throat pain or dental pain Card: Denies: chest pain Resp: Denies: dyspnea GI: Reports: abdominal pain, nausea, vomiting and diarrhea : Reports: dysuria Musc: Denies: neck pain or back pain Skin/Breast: Denies: rash Neuro: Denies: headache(s) PFSH ED 2 PFSH: Medical History Hemorrhagic cyst of left ovary Demyelinating disease of central nervous system Rheumatoid arthritis Chronic migraine without aura, intractable, with status migrainosus Immunization counseling High risk medication use Positive LOKESH (antinuclear antibody) Inflammatory arthritis Epidermoid cyst of face surgically removed Anxiety Depression Stomach ulcer No pertinent past medical history Surgical History H/O tubal ligation History of cholecystectomy History of appendectomy History of delivery History of hysterectomy History of tonsillectomy Family History Mother Colon cancer Diabetes Hyperlipidemia Hypertension Stroke Heart disease Father Diabetes Hypertension Thyroid disease Denies family history of Clotting disorder Chronic kidney disease (CKD) Bleeding disorder Social History Smoking and tobacco/nicotine status: current every day tobacco/nicotine user cigarettes Substance/Drug Use: never Physical Exam 2 Const: COMMON NORMALS: no acute distress, patient oriented x3 and healthy appearing HENMT: COMMON NORMALS: normocephalic and atraumatic HEAD & SCALP: n ormocephalic and atraumatic Neck/C-Spine: COMMON NORMALS: full ROM and supple Chest: COMMONS NORMALS: normal inspection of the chest Resp: COMMON NORMALS: normal respiratory effort, No retractions, No use of accessory muscles and clear to auscultation bilaterally AUSCULTATION: clear to auscultation bilaterally Cardio: COMMON NORMALS: regular rate, regular rhythm and No murmurs present (Cardio) RATE: regular rate RHYTHM: regular rhythm GI: COMMON NORMALS: Normal to inspection, nondistended, normoactive bowel sounds present, Soft to palpation and no masses PALPATION: Yes Soft to palpation and Yes Tenderness to palpation present (GI) Details: LLQ Extremity: COMMON NORMALS: normal to inspection and full ROM Neuro: COMMON NORMALS: patient oriented x3, moves all extremities and no focal motor deficits Psych: COMMON NORMALS: mental status grossly normal, Normal thought process present and cooperative THOUGHT PROCESS: Normal thought process present Skin: COMMON NORMALS: no rashes or lesions noted and no wounds GENERAL SKIN EXAM: no rashes or lesions noted Course 2 Vital Signs: Vital signs: Vital Signs Temperature 97.9 F 06/06/24 21:39 Pulse Rate 88 06/06/24 21:39 Respiratory Rate 18 06/06/24 21:39 Blood Pressure 100/59 06/06/24 21:39 Pulse Oximetry 98 06/06/24 21:39 Oxygen Delivery Me thod Room Air 06/06/24 21:39 MDM - Abdominal Pain Medical Decision Making Patient presents here with abdominal pain no nausea vomiting CT scan showed no acute finding she feels improved here we will prescribe her Zofran she stable for discharge she is follow-up with PCP return if worsening she understands agrees to plan. Medical Records I reviewed the patient's medical records. Lab Data I reviewed the patient's lab results. 06/06/24 21:40 06/06/24 21:40 Labs/Radiology: Radiology Impressions Abdomen/Pelvis CT 06/06/24 22:23 IMPRESSION: 1. Prominent fluid in the stomach and small bowel, please correlate for a gastroenteritis. 2. Left adrenal stable 15 mm nodule, again likely reflecting a adenomas previously noted. 3. Hepatic steatosis. 4. Cholecystectomy. Laboratory Results WBC 14.40 10^3/uL (3.29-11.43) H 06/06/24 21:40 RBC 4.93 10^6/uL (3.85-5.65) 06/06/24 21:40 Hgb 15.50 g/dL (11.27-16.99) 06/06/24 21:40 Hct 47.6 % (36-47) H 06/06/24 21:40 MCV 96.6 fl (85-98) 06/06/24 21:40 MCH 31.4 pg (27-33) 06/06/24 21:40 MCHC 32.6 g/dL (30-55) 06/06/24 21:40 RDW 13.0 % (12.1-15.1) 06/06/24 21:40 Plt Count 220 10^3/cmm (157-399) 06/06/24 21:40 MPV 9.9 fL (7.4-10.4) 06/06/24 21:40 Neut % (Auto) 48.1 % 06/06/24 21:40 Lymph % (Auto) 43.5 % 06/06/24 21:40 [place]ye % (Auto) 5.6 % 06/06/24 21:40 Eos % (Auto) 2.2 % 06/06/24 21:40 Baso % (Auto) 0.3 % 06/06/24 21:40 Neut # (Auto) 6.94 10^3/uL (1.8-7.7) 06/06/24 21:40 Lymph # (Auto) 6.3 10^3/uL (0.8-4.8) H 06/06/24 21:40 [place]ye # (Auto) 0.8 10^3/uL (0.2-0.9) 06/06/24 21:40 Eos # (Auto) 0.3 10^3/uL (0.0-0.8) 06/06/24 21:40 Baso # (Auto) 0.0 10^3/uL (0.0-0.1) 06/06/24 21:40 Nucleated RBC % (auto) 0 % 06/06/24 21:40 Nucleated RBCs # 0.0 /100WBC 06/06/24 21:40 Sodium 133 mmol/L (136-145) L 06/06/24 21:40 Potassium 3.8 mmol/L (3.5-5.1) 06/06/24 21:40 Chloride 98 mmol/L (98-107) 06/06/24 21:40 Carbon Dioxide 25 mmol/L (22-29) 06/06/24 21:40 Anion Gap 13.8 (5-19) 06/06/24 21:40 BUN 11 mg/dL (6-20) 06/06/24 21:40 Creatinine 0.8 mg/dL (0.5-0.9) 06/06/24 21:40 GFR Calculation 81.2 mL/min (90-130) L 06/06/24 21:40 Glucose 138 mg/dL (65-115) H 06/06/24 21:40 Calculated Osmolality 278 mOsm/kg (285-295) L 06/06/24 21:40 Calcium 8.7 mg/dL (8.5-10.5) 06/06/24 21:40 Total Bilirubin 0.3 mg/dL (0.15-1.2) 06/06/24 21:40 AST 18 U/L (0-32) 06/06/24 21:40 ALT 26 U/L (0-33) 06/06/24 21:40 Alkaline Phosphatase 82 U/L (35-105) 06/06/24 21:40 Total Protein 7.2 g/dL (6.6-8.7) 06/06/24:40 Albumin 3.5 g/dL (3.5-5.2) 06/06/24 21:40 Globulin 3.7 g/dL (1.3-4.6) 06/06/24 21:40 Lipase 24 U/L (13-60) 06/06/24 21:40 HCG, Qual Negative (Negative) 06/06/24 21:40 Urine Color Yellow (Yellow) 06/06/24 21:55 Urine Appearance Cloudy (CLEAR) A 06/06/24 21:55 Urine pH 5.5 (5-7) 06/06/24 21:55 Ur Specific [place] 1.020 (1.005-1.030) 06/06/24 21:55 Urine Protein Negative (Negative) 06/06/24 21:55 Urine Glucose (UA) Negative (Normal) 06/06/24 21: Urine Ketones Negative (Negative) 06/06/24 21:55 Urine Blood Non-haemolysed trace (Negative) 06/06/24 21:55 Urine Nitrate Negative (Negative) 06/06/24 21:55 Urine Bilirubin Negative (Negative) 06/06/24 21:55 Urine Urobilinogen 1.0 mg/dL (Negative) 06/06/24 21:55 Ur Leukocyte Esterase Negative (Negative) 06/06/24 21:55 Urine RBC 51-100 /hpf (0-2) H 06/06/24 21:55 Urine WBC 0-5 /hpf (0-5) 06/06/24 21:55 Ur Squamous Epith Cells 15-25 /hpf (0-5) H 06/06/24 21:55 Amorphous Sediment Not Reportable 06/06/24 21:55 Urine Bacteria 1+ /hpf (NONE) H 06/06/24 21:55 Hyaline Casts 0-4 /lpf H 06/06/24 21:55 Urine Mucus Trace /hpf 06/06/24 21:55 All radiology interpretation(s) finalized by discharge Discharge Plan Discharge Patient Disposition: Home Clinical Impression: Abdominal pain, Vomiting Condition: Stable Prescriptions: New ondansetron 4 mg tablet,disintegrating 4 mg PO Q6H PRN (Reason: nausea and vomiting) Qty: 14 0RF No Action acetaminophen [Tylenol] 325 mg tablet 325 mg PO QID PRN (Reason: Pain) ibuprofen 200 mg tablet 400 mg PO Q6H PRN (Reason: Pain) polyethylene glycol 3350 [Miralax] 17 gram/dose powder 17 g PO DAILY 30 Days Qty: 238 0RF prednisone 20 mg tablet 20 mg PO DAILY Qty: 5 0RF ondansetron 4 mg tablet,disintegrating 4 mg PO Q6H PRN (Reason: nausea and vomiting) Qty: 14 0RF Zyrtec 10 mg tablet 10 mg PO DAILY PRN (Reason: allergies) fluticasone propionate [Flonase Allergy Relief] 50 mcg/actuation spray,suspension 2 spray intranasal DAILY PRN (Reason: allergies) Rx Instructions: administer into each nostril Discharge Orders: Discharge ED (Routine); Ordered 06/07/24 Ordered By: Brian Pate Referrals: Briana Dumas DO [Primary Care Provider] - Discharge Diet: Advance as tolerated Discharge Activity: Resume usual activity Patient Instructions: Acute Nausea and Vomiting (ED), Abdominal Pain (ED) Coding Level of Care Code ED Head Host/Hostess for Jessica Cassidy
[2024-06-06] MEDS: morphine 4 mg/mL SDV 1 mL IVP (22:50)
[2024-06-06] MEDS: ondansetron 2 mg/ML SDV 2 mL 4 MG IVP (22:50)
[2024-06-06] MEDS: sodium chloride 0.9% 1,000 ML 999 ML IV (22:50)
[2024-06-06] MEDS: iohexol 350 mg/mL 500 mL Btl (per mL) IV (22:55)
[2024-06-06 23:15] VITALS: BP 134/101
[2024-06-06 23:45] VITALS: BP 114/74; PULSE 78
[2024-06-07 00:40] VITALS: BP 130/78; RESP 16; O2SAT 94; O2SAT 98
[2024-06-07 00:41] VITALS: BP 130/78; PULSE 78; O2SAT 97
== END 2024-06-07 00:52 | disposition home or self-care (01) ==
PROVIDERS: Emergency Provider Emergency Medicine; PCP Family Medicine
DX: R10.32 Left lower quadrant pain (principal); R11.11 Vomiting without nausea; F17.210 Nicotine dependence, cigarettes, uncomplicated
CPT/HCPCS: 36415; 74177; 80053; 81001; 83690; 84703; 85025; 96361; 96374; 96375; 99285; J2270; J2405; J7030

== ENCOUNTER 2024-06-28 20:22 | Emergency (ER) | payer MEDICAID, SELFPAY ==
[2024-06-28 20:43] VITALS: BP 158/88; PULSE 84; RESP 18; TEMP 36.5; O2SAT 97
--- NOTE | 2024-06-28 20:51 | CTR_ITS ---
PROCEDURE INFORMATION: Exam: CT Abdomen And Pelvis Without Contrast Exam date and time: 06/28/2024 9:59 PM Age: 34 years old Clinical indication: Abdominal pain; Right; Prior surgery; Surgery date: 6+ months; Surgery type: Gb. Appy. Hysterectomy. Csection. Patient HX: C/O RT flank pain; Additional info: Right lower quadrant right flank pain TECHNIQUE: Imaging protocol: Computed tomography of the abdomen and pelvis without contrast. Radiation optimization: All CT scans at this facility use at least one of these dose optimization techniques: automated exposure control; mA and/or kV adjustment per patient size (includes targeted exams where dose is matched to clinical indication); or iterative reconstruction. COMPARISON: CT abdomen pelvis w con* [id number] 06/06/2024 10:51 PM RADIATION DOSE METRICS: Total DLP (mGy-cm): 1302.17 FINDINGS: Limitations: The absence of intravenous contrast lessens the sensitivity of this study for solid organ abnormalities. Lungs: Lung bases are clear. Liver: There is no focal abnormality within the liver. There is moderate enlargement of the liver. Liver is 25 cm in height. Gallbladder and biliary ducts: There has been a cholecystectomy. There is no common bile duct dilation. Pancreas: The pancreas is normal. Spleen: The spleen is normal. Adrenal glands: There is 1.5 cm sized low-density mass of the left adrenal gland consistent with benign adenoma. There may also be 9 mm sized adenoma left adrenal gland and there is a 9 mm sized nodule right adrenal gland with low-density consistent with benign adenoma. Kidneys and ureters: The kidneys are normal. There is no evidence of hydronephrosis. There is no evidence of renal or ureteral calcifications. Stomach and bowel: Mild diverticulosis is present in the distal colon. There is no evidence of colitis/diverticulitis. There is no evidence of intestinal obstruction. Appendix: There has been an appendectomy. Intraperitoneal space: There is no evidence of free intraperitoneal fluid. Vasculature: The aorta is normal. Lymph nodes: There is no evidence of lymphadenopathy. Urinary bladder: Unremarkable as visualized. Reproductive: There has been a hysterectomy. Bones/joints: Unremarkable. No acute fracture. Soft tissues: Unremarkable. CT/CT kidney stone [id number] IMPRESSION: No acute finding. COMMENTS: 1. Consistent with the [employer]'s Incidental Findings Committee white paper (J Am Chuck Radiol 2017): Any incidental adrenal lesion less than 1 cm is likely benign. No follow-up imaging is recommended for these lesions per consensus recommendations based on imaging criteria. Further lab evaluation could be pursued if warranted based on clinical findings. 2. Consistent with the [employer] [place] [employer]'s Incidental Findings Committee white paper (J Am Chuck Radiol 2017): For any incidental adrenal lesion greater than or equal to 1 cm but less than or equal to 4 cm classified in this report as benign, likely benign, or containing fat (including classification as an adenoma or myelolipoma), no follow-up imaging is recommended per consensus recommendations based on imaging criteria. Further lab evaluation could be pursued if warranted based on clinical findings.
[2024-06-28 21:01] LABS: Bilirubin Urine Negative (Negative); Blood Urine 1+ (Negative); Glucose Urine UA Negative (Normal); Ketones Urine Negative (Negative); Leukocyte Esterase Urine Negative (Negative); Nitrate Urine Negative (Negative); Protein Urine Negative (Negative); Specific Gravity, Urine 1.017 (1.005-1.030); Urine Appearance Turbid (CLEAR); Urine Color Yellow (Yellow); pH Urine 6.5 (5-7)
[2024-06-28 21:04] LABS: Add Urine Microscopic? YES; Bacteria Urine None Seen /hpf; Hyaline Casts Urine 2.05 /lpf; RBC Urine >100 /hpf (0-2); Squamous Epithelial Cell Urine 0-5 /hpf (0-5); Universal Test for UA Present (0); WBC Urine 0-5 /hpf (0-5)
[2024-06-28 21:16] LABS: Add Urine Culture? Yes; Amorphous Sediment Urine 2+ /hpf
[2024-06-28 21:30] LABS: Basophils % 0.2 %; Eosinophils # 0.3 10^3/uL (0.0-0.8); Eosinophils % 1.5 %; Hematocrit 42.6 % (36-47); Lymphocytes # 4.7 10^3/uL (0.8-4.8); Lymphocytes % 28.9 %; Mean Corpuscular HGB Conc 32.4 g/dL (30-55); Mean Corpuscular Hemoglobin 31.3 pg (27-33); Mean Corpuscular Volume 96.6 fl (85-98); Mean Platelet Volume 10.2 fL (7.4-10.4); Monocytes # 0.6 10^3/uL (0.2-0.9); Monocytes % 3.8 %; Neutrophils # 10.54 10^3/uL (1.8-7.7); Neutrophils % 65.2 %; Nucleated Red Blood Cells % 0 %; Platelet Count 218 10^3/cmm (157-399); Red Blood Count 4.41 10^6/uL (3.85-5.65); Red Cell Distribution Width 12.8 % (12.1-15.1); White Blood Count 16.18 10^3/uL (3.29-11.43)
[2024-06-28 21:50] LABS: Alanine Aminotransferase 25 U/L (0-33); Albumin Level 3.2 g/dL (3.5-5.2); Alkaline Phosphatase 88 U/L (35-105); Aspartate Amino Transferase 20 U/L (0-32); Blood Urea Nitrogen 13 mg/dL (6-20); C Reactive Protein 18.4 mg/L (0.0-4.9); Calcium 8.4 mg/dL (8.5-10.5); Carbon Dioxide 27 mmol/L (22-29); Chloride 103 mmol/L (98-107); Creatinine Clr Calc Pharmacy 122.7931; Globulin 3.4 g/dL (1.3-4.6); Glomerular Filtration Rate 70.8 mL/min (90-130); Glucose 96 mg/dL (65-115); Lipase 24 U/L (13-60); Osmolality Calculated 284 mOsm/kg (285-295); Sodium 137 mmol/L (136-145); Total Bilirubin 0.2 mg/dL (0.15-1.2); Total Protein 6.6 g/dL (6.6-8.7)
[2024-06-28 21:53] LABS: Anion Gap 10.5 (5-19); Potassium 3.5 mmol/L (3.5-5.1)
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
[2024-06-28 22:15] VITALS: BP 162/94; PULSE 85; RESP 18; O2SAT 90
[2024-06-28] MEDS: sodium chloride 0.9% 1,000 ML 999 ML IV (22:49)
[2024-06-28] MEDS: ondansetron 2 mg/ML SDV 2 mL 4 MG IVP (22:51)
[2024-06-28 22:52] VITALS: RESP 20; O2SAT 90
[2024-06-28] MEDS: morphine 4 mg/mL SDV 1 mL IVP (22:52)
[2024-06-28 22:54] VITALS: BP 156/87; PULSE 87; RESP 20; O2SAT 91
[2024-06-29 00:16] VITALS: RESP 18
[2024-06-29] MEDS: morphine 4 mg/mL SDV 1 mL IVP (00:16)
[2024-06-29 00:57] VITALS: BP 114/94; PULSE 84; O2SAT 93
[2024-06-29 01:12] VITALS: BP 132/86; PULSE 87; RESP 16; O2SAT 93
== END 2024-06-29 01:07 | disposition home or self-care (01) ==
PROVIDERS: Emergency Medicine; Emergency Provider Nurse Practitioner Family; PCP Family Medicine
DX: R31.1 Benign essential microscopic hematuria (principal); N23 Unspecified renal colic; F17.210 Nicotine dependence, cigarettes, uncomplicated
CPT/HCPCS: 74176; 80053; 81001; 83690; 85025; 86140; 87086; 96361; 96374; 96375; 96376; 99285; J2270; J2405; J7030

== ENCOUNTER 2024-08-01 16:15 | Emergency (ER) | payer OTHER, SELFPAY ==
[2024-08-01 16:20] VITALS: BP 178/89; PULSE 75; RESP 18; TEMP 36.4; O2SAT 95
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
--- NOTE | 2024-08-01 16:36 | ED_ITS ---
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 and had her left hand on the tailgate dropped a tire on her left hand has happened an hour and a half ago she has pain in the middle of her hand with some slight pain in her wrist she rates the pain a 5 out of 10 denies any other injuries states pain is worse with movement and palpation Associated symptoms: Deny chest pain, fever(s) or rash Related Data Home Medications Medication Instructions Recorded Confirmed acetaminophen 325 mg tablet 325 mg PO QID PRN Pain 08/14/21 08/01/24 (Tylenol) cetirizine 10 mg tablet (Zyrtec) 10 mg PO DAILY PRN allergies 03/12/24 07/20/24 fluticasone propionate 50 2 spray intranasal DAILY PRN 03/12/24 08/01/24 mcg/actuation nasal allergies spray,suspension (Flonase Allergy Relief) oxycodone-acetaminophen 7.5 mg-325 1 tab PO TID PRN Pain 08/01/24 08/01/24 mg tablet Previous Rx's Medication Instructions Recorded ondansetron 4 mg disintegrating 4 mg PO Q6H PRN nausea and 04/07/24 tablet vomiting #14 tabs promethazine-DM 6.25 mg-15 mg/5 mL 5 ml PO Q4H PRN cough #118 mL 07/20/24 oral syrup Allergies Allergy/AdvReac Type Severity Reaction Status Date / Time cephalexin [From Keflex] Allergy Unknown Verified 07/20/24 11:38 Sulfa (Sulfonamide Allergy Unknown Verified 07/20/24 11:38 Antibiotics) sulfamethoxazole Allergy Unknown Verified 07/20/24 11:38 [From Bactrim] tramadol Allergy ADR-Swelling Verified 07/20/24 11:38 of the Eye trimethoprim [From Bactrim] Allergy Unknown Verified 07/20/24 11:38 ketorolac [From Toradol] AdvReac ADR-Swelling Verified 07/20/24 11:38 of the Eye/ SWEATING Review of Systems Const: Denies: fever(s), chills, body aches or change in appetite ENMT: Denies: throat pain or dental pain Card: Denies: chest pain Resp: Denies: dyspnea GI: Denies: abdominal pain, nausea, vomiting or diarrhea Musc: Reports: extremity pain; Denies: neck pain or back pain Skin/Breast: Denies: rash Neuro: Denies: headache(s) PFSH ED PFSH: Medical History Hemorrhagic cyst of left ovary Demyelinating disease of central nervous system Rheumatoid arthritis Chronic migraine without aura, intractable, with status migrainosus Immunization counseling High risk medication use Positive LOKESH (antinuclear antibody) Inflammatory arthritis Epidermoid cyst of face surgically removed Anxiety Depression Stomach ulcer No pertinent past medical history Surgical History H/O tubal ligation History of cholecystectomy History of appendectomy History of delivery History of hysterectomy History of tonsillectomy Family History Mother Colon cancer Diabetes Hyperlipidemia Hypertension Stroke Heart disease Father Diabetes Hypertension Thyroid disease Denies family history of Clotting disorder Chronic kidney disease (CKD) Bleeding disorder Social History Smoking and tobacco/nicotine status: current every day tobacco/nicotine user (1/2 PPD) cigarettes Substance/Drug Use: never Physical Exam Const: COMMON NORMALS: no acute distress, patient oriented x3 and healthy appearing HENMT: COMMON NORMALS: normocephalic and atraumatic HEAD & SCALP: normocephalic and atraumatic Neck/C-Spine: COMMON NORMALS: full ROM Chest: COMMONS NORMALS: normal inspection of the chest Resp: COMMON NORMALS: normal respiratory effort Extremity: COMMON NORMALS: full ROM NARRATIVE EXTREMITY EXAM: Tenderness noted to left hand no obvious deformity Neuro: COMMON NORMALS: patient oriented x3, moves all extremities and no focal motor deficits Psych: COMMON NORMALS: mental status grossly normal, Normal thought process present and cooperative THOUGHT PROCESS: Normal thought process present Skin: COMMON NORMALS: no rashes or lesions noted and no wounds GENERAL SKIN EXAM: no rashes or lesions noted Course Vital Signs: Vital signs: Vital Signs Temperature 97.6 F 08/01/24 16:20 Pulse Rate 75 08/01/24 16:20 Respiratory Rate 18 08/01/24 16:20 Blood Pressure 178/89 08/01/24 16:20 Pulse Oximetry 95 08/01/24 16:20 MDM - Extremity (Nontraumatic) Medical Decision Making Patient presents here with right hand contusion x-ray shows no fractures patient stable for discharge ice ibuprofen Tylenol. Medical Records I reviewed the patient's medical records. XR interpretation done by ED provider, pending radiology final review ED provider radiology interpretation(s): xr L hand/wrist; no acute fx Discharge Plan Discharge Patient Disposition: Home Condition: Stable Prescriptions: No Action acetaminophen [Tylenol] 325 mg tablet 325 mg PO QID PRN (Reason: Pain) promethazine-DM 6.25-15 mg/5 mL syrup 5 ml PO Q4H PRN (Reason: cough) Qty: 118 0RF Rx Instructions: Do not exceed more than 30ml/24hour period (6 doses) ondansetron 4 mg tablet,disintegrating 4 mg PO Q6H PRN (Reason: nausea and vomiting) Qty: 14 0RF Zyrtec 10 mg tablet 10 mg PO DAILY PRN (Reason: allergies) fluticasone propionate [Flonase Allergy Relief] 50 mcg/actuation spray,suspension 2 spray intranasal DAILY PRN (Reason: allergies) Rx Instructions: administer into each nostril oxycodone-acetaminophen 7.5-325 mg tablet 1 tab PO TID PRN (Reason: Pain) Discharge Orders: Discharge ED (Routine); Ordered 08/01/24 Ordered By: Brian Pate Referrals: Birana Dumas DO [Primary Care Provider] - 4-7 days Discharge Diet: Advance as tolerated Discharge Activity: Resume usual activity Patient Instructions: Contusion in Adults (ED) Coding Level of Care Code ED 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
[2024-08-01] MEDS: HYDROcodone-acetaminophen 5-325 mg Tablet 1 TAB PO (16:48)
[2024-08-01 16:51] VITALS: BP 156/91; PULSE 71; RESP 16; O2SAT 97
== END 2024-08-01 16:52 | disposition home or self-care (01) ==
PROVIDERS: Emergency Provider Emergency Medicine; PCP Family Medicine
DX: S60.221A Contusion of right hand, initial encounter (principal); X58.XXXA Exposure to other specified factors, initial encounter; F17.210 Nicotine dependence, cigarettes, uncomplicated
CPT/HCPCS: 73110; 73130; 99283

== ENCOUNTER 2024-08-04 07:48 | Emergency (ER) | payer SELFPAY ==
[2024-08-04 08:03] VITALS: BP 145/96; PULSE 78; RESP 18; TEMP 36.4; O2SAT 98; BMI 54.8
[2024-08-04 10:07] LABS: Basophils # 0.1 10^3/uL (0.0-0.1); Basophils % 0.4 %; Eosinophils # 0.2 10^3/uL (0.0-0.8); Eosinophils % 1.4 %; Hematocrit 47.8 % (36-47); Lymphocytes # 4.1 10^3/uL (0.8-4.8); Lymphocytes % 29.3 %; Mean Corpuscular HGB Conc 33.1 g/dL (30-55); Mean Corpuscular Hemoglobin 32.2 pg (27-33); Mean Corpuscular Volume 97.6 fl (85-98); Monocytes # 0.6 10^3/uL (0.2-0.9); Monocytes % 4.5 %; Neutrophils # 8.89 10^3/uL (1.8-7.7); Nucleated Red Blood Cells % 0 %; Platelet Count 218 10^3/cmm (157-399); Red Cell Distribution Width 12.8 % (12.1-15.1); White Blood Count 13.87 10^3/uL (3.29-11.43)
[2024-08-04 10:23] LABS: HCG, Serum Qual Negative (Negative)
--- NOTE | 2024-08-04 10:26 | ED_ITS ---
HPI - Abdominal Pain 2 General: Chief Complaint: Abdominal Pain Stated Complaint: abd pain Time Seen by Provider: 08/04/24 07:52 Source: patient Mode of arrival: ambulatory Limitations: no limitations History of Present Illness: Patient is a 34-year-old female presents to ED today with complaint of lower abdominal pain over the past few days. She has also had some nausea and vomiting. She has noticed some yellow watery diarrhea. No hematochezia. She states she has a longstanding history of diverticulitis with recurrent flares. She states she recently has met with a colorectal specialist in [place]. She states she is awaiting scheduling for a colonoscopy. Following this they will make a decision for a possible elective colectomy. Patient states her pain today feels like previous flares. She states yesterday she was running fevers as high as 102. She arrives to the emergency department today with stable vital signs. MD elicited complaint: abdominal pain Pertinent past history: other (diverticulitis) Onset (ago): day(s) Pain Consistency: constant Location: RLQ and LLQ Severity: moderate Quality: cramping and sharp Radiation: none Migration to: no migration Exacerbating factors: nothing Relieving factors: nothing Associated Symptoms: Reports diarrhea, nausea and vomiting; Denies chills, dysuria, fever(s), hematochezia and melena Related Data Home Medications Medication Instructions Recorded Confirmed oxycodone-acetaminophen 7.5 mg-325 1 tab PO TID PRN Pain 08/01/24 08/04/24 mg tablet acetaminophen 500 mg tablet 1,000 mg PO Q6H PRN Pain 08/04/24 08/04/24 (Tylenol Extra Strength) Previous Rx's Medication Instructions Recorded ondansetron 4 mg disintegrating 4 mg PO Q6H PRN nausea and 04/07/24 tablet vomiting #14 tabs amoxicillin 875 mg-potassium 1 tab PO BID #14 tabs 08/04/24 clavulanate 125 mg tablet ondansetron 4 mg disintegrating 4 mg PO Q8H PRN nausea and 08/04/24 tablet vomiting #14 tabs Allergies Allergy/AdvReac Type Severity Reaction Status Date / Time cephalexin [From Keflex] Allergy Unknown Verified 07/20/24 11:38 Sulfa (Sulfonamide Allergy Unknown Verified 07/20/24 11:38 Antibiotics) sulfamethoxazole Allergy Unknown Verified 07/20/24 11:38 [From Bactrim] tramadol Allergy ADR-Swelling Verified 07/20/24 11:38 of the Eye trimethoprim [From Bactrim] Allergy Unknown Verified 07/20/24 11:38 ketorolac [From Toradol] AdvReac ADR-Swelling Verified 07/20/24 11:38 of the Eye/ SWEATING Review of Systems 2 Const: Denies: fever(s), chills, body aches, fatigue or malaise Card: Denies: chest pain Resp: Denies: dyspnea GI: Reports: abdominal pain, nausea, vomiting and diarrhea; Denies: hematochezia or melena : Denies: flank pain, difficulty voiding, dysuria, urinary frequency, urinary urgency or urinary hesitancy Musc: Denies: neck pain, back pain, extremity pain, extremity swelling, joint pain or joint swelling Skin/Breast: Denies: rash Neuro: Denies: headache(s) or dizziness PFSH ED 2 PFSH: Medical History Hemorrhagic cyst of left ovary Demyelinating disease of central nervous system Rheumatoid arthritis Chronic migraine without aura, intractable, with status migrainosus Immunization counseling High risk medication use Positive LOKESH (antinuclear antibody) Inflammatory arthritis Epidermoid cyst of face surgically removed Anxiety Depression Stomach ulcer No pertinent past medical history Surgical History H/O tubal ligation History of cholecystectomy History of appendectomy History of delivery History of hysterectomy History of tonsillectomy Family History Mother Colon cancer Diabetes Hyperlipidemia Hypertension Stroke Heart disease Father Diabetes Hypertension Thyroid disease Denies family history of Clotting disorder Chronic kidney disease (CKD) Bleeding disorder Social History Smoking and tobacco/nicotine status: current every day tobacco/nicotine user (1/2 PPD) cigarettes Substance/Drug Use: never Physical Exam 2 Const: COMMON NORMALS: no acute distress, patient oriented x3, no limitations, alert and well nourished GENERAL APPEARANCE: cooperative NUTRITIONAL APPEARANCE: obese morbidly obese (BMI 54.9) ORIENTATION/CONSCIOUSNESS: Yes awake, Yes oriented to person, Yes oriented to place and Yes oriented to time Resp: COMMON NORMALS: normal respiratory effort and clear to auscultation bilaterally AUSCULTATION: clear to auscultation bilaterally Cardio: COMMON NORMALS: regular rate and regular rhythm RATE: regular rate RHYTHM: regular rhythm GI: COMMON NORMALS: Normal to inspection, nondistended, normoactive bowel sounds present, Soft to palpation, No hepatosplenomegaly present and no masses INSPECTION: Yes normal to inspection AUSCULTATION: Yes normoactive bowel sounds PALPATION: Yes Soft to palpation, Yes Tenderness to palpation present (GI) (across lower abdomen), No Guarding due to palpation present (GI), No Rigid due to palpation and Yes No hepatosplenomegaly present : COMMON NORMALS: Yes no CVA tenderness BLADDER/KIDNEY EXAM: Yes no CVA tenderness Back/Pelvis: COMMON NORMALS: no CVA tenderness and thoracic and lumbar spine normal to inspection Extremity: GENERAL: Yes normal exam except as noted Neuro: COMMON NORMALS: patient oriented x3 SENSORIUM/ORIENTATION: Yes alert, Yes oriented to person, Yes oriented to place and Yes oriented to time Skin: COMMON NORMALS: no rashes or lesions noted GENERAL SKIN EXAM: no rashes or lesions noted Course 2 Vital Signs: Vital signs: Vital Signs Temperature 97.6 F 08/04/24 08:03 Pulse Rate 67 08/04/24 11:07 Respiratory Rate 22 H 08/04/24 10:50 Blood Pressure 146/94 08/04/24 11:07 Pulse Oximetry 93 08/04/24 11:07 Oxygen Delivery Me thod Room Air 08/04/24 08:03 MDM - Abdominal Pain Medical Decision Making Patient is a 34-year-old female here for lower abdominal pains. Patient feels like her pain feels identical to previous diverticulitis flares. She has had several flares in the past and has followed up with colorectal surgery in [place]. They are awaiting scheduling her for colonoscopy. Her vital signs are stable. Blood work showing a white count of 13.87. Remainder of labs are unremarkable. Her UA without evidence for infection. CT scan showing diverticulosis without definitive evidence of acute diverticulitis although stated this could potentially be obscured. Given her history, I would rather err on the side of caution and place her on Augmentin as she has done well with this in the past. Return ED precautions given. Medical Records I reviewed the patient's medical records. Lab Data I reviewed the patient's lab results. 08/04/24 09:55 08/04/24 09:55 Labs/Radiology: Radiology Impressions Abdomen/Pelvis CT 08/04/24 10:32 IMPRESSION: 1. Mild sigmoid diverticulosis. No definitive evidence of acute diverticulitis. Mild sigmoid diverticulitis could potentially be obscured. 2. Multiple loops of small bowel are fluid-filled and nondilated. This is likely incidental but can be seen in the setting of mild nonspecific enteritis. 3. Stable appearance of 1.6 cm left adrenal nodule, internally measuring roughly 30 Hounsfield units. This appears unchanged from at least 04/04/2022. No follow-up is necessary. (Reference: Tong) REFERENCES: Tong SPARROW, et al. Management of Incidental Adrenal Masses: A White Paper of the ACR Incidental Findings Committee. J Am Chuck Radiol. 2017;14(8):4958-9460. Laboratory Results WBC 13.87 10^3/uL (3.29-11.43) H 08/04/24 09:55 RBC 4.90 10^6/uL (3.85-5.65) 08/04/24 09:55 Hgb 15.80 g/dL (11.27-16.99) 08/04/24 09:55 Hct 47.8 % (36-47) H 08/04/24 09:55 MCV 97.6 fl (85-98) 08/04/24 09:55 MCH 32.2 pg (27-33) 08/04/24 09:55 MCHC 33.1 g/dL (30-55) 08/04/24 09:55 RDW 12.8 % (12.1-15.1) 08/04/24 09:55 Plt Count 218 10^3/cmm (157-399) 08/04/24 09:55 MPV 10.0 fL (7.4-10.4) 08/04/24 09:55 Neut % (Auto) 64.0 % 08/04/24 09:55 Lymph % (Auto) 29.3 % 08/04/24 09:55 [place] % (Auto) 4.5 % 08/04/24 09:55 Eos % (Auto) 1.4 % 08/04/24 09:55 Baso % (Auto) 0.4 % 08/04/24 09:55 Neut # (Auto) 8.89 10^3/uL (1.8-7.7) H 08/04/24 09:55 Lymph # (Auto) 4.1 10^3/uL (0.8-4.8) 08/04/24 09:55 [place] # (Auto) 0.6 10^3/uL (0.2-0.9) 08/04/24 09:55 Eos # (Auto) 0.2 10^3/uL (0.0-0.8) 08/04/24 09:55 Baso # (Auto) 0.1 10^3/uL (0.0-0.1) 08/04/24 09:55 Nucleated RBC % (auto) 0 % 08/04/24 09:55 Nucleated RBCs # 0.0 /100WBC 08/04/24 09:55 Sodium 135 mmol/L (136-145) L 08/04/24 09:55 Potassium 4.0 mmol/L (3.5-5.1) 08/04/24 09:55 Chloride 104 mmol/L (98-107) 08/04/24 09:55 Carbon Dioxide 24 mmol/L (22-29) 08/04/24 09:55 Anion Gap 11.0 (5-19) 08/04/24 09:55 BUN 9 mg/dL (6-20) 08/04/24 09:55 Creatinine 0.7 mg/dL (0.5-0.9) 08/04/24 09:55 GFR Calculation 94.7 mL/min (90-130) 08/04/24 09:55 Glucose 94 mg/dL (65-115) 08/04/24 09:55 Calculated Osmolality 278 mOsm/kg (285-295) L 08/04/24 09:55 Calcium 7.8 mg/dL (8.5-10.5) L 08/04/24 09:55 Total Bilirubin 0.4 mg/dL (0.15-1.2) 08/04/24 09:55 AST 18 U/L (0-32) 08/04/24 09:55 ALT 23 U/L (0-33) 08/04/24 09:55 Alkaline Phosphatase 87 U/L (35-105) 08/04/24 09:55 Total Protein 7.2 g/dL (6.6-8.7) 08/04/24 09:55 Albumin 3.5 g/dL (3.5-5.2) 08/04/24 09:55 Globulin 3.7 g/dL (1.3-4.6) 08/04/24 09:55 Lipase 18 U/L (13-60) 08/04/24 09:55 HCG, Qual Negative (Negative) 08/04/24 09:55 Urine Color Yellow (Yellow) 08/04/24 11:34 Urine Appearance Clear (CLEAR) 08/04/24 11:34 Urine pH Not Reportable 08/04/24 11:34 Ur Specific [place] Not Reportable 08/04/24 11:34 Urine Protein Not Reportable 08/04/24 11:34 Urine Glucose (UA) Not Reportable 08/04/24 11:34 Urine Ketones Not Reportable 08/04/24 11:34 Urine Blood Not Reportable 08/04/24 11:34 Urine Nitrate Not Reportable 08/04/24 11:34 Urine Bilirubin Not Reportable 08/04/24 11:34 Urine Urobilinogen Not Reportable 08/04/24 11:34 Ur Leukocyte Esterase Not Reportable 08/04/24 11:34 Urine RBC 0-4 /hpf (0-2) H 08/04/24 11:34 Urine WBC 0-4 /hpf (0-5) H 08/04/24 11:34 Ur Squamous Epith Cells 0-4 /hpf (0-5) H 08/04/24 11:34 Calcium Oxalate Crystal 10-15 /hpf H 08/04/24 11:34 Amorphous Sediment Not Reportable 08/04/24 11:34 Urine Bacteria None /hpf (NONE) 08/04/24 11:34 Hyaline Casts 0-4 /lpf H 08/04/24 11:34 Urine Mucus Trace /hpf 08/04/24 11:34 All radiology interpretation(s) finalized by discharge Discharge Plan Discharge Patient Disposition: Home Clinical Impression: Abdominal pain Qualifiers: Abdominal location: unspecified location Qualified Code(s): R10.9 - Unspecified abdominal pain Condition: Stable Prescriptions: New ondansetron 4 mg tablet,disintegrating 4 mg PO Q8H PRN (Reason: nausea and vomiting) Qty: 14 0RF amoxicillin-pot clavulanate 875-125 mg tablet 1 tab PO BID Qty: 14 0RF No Action ondansetron 4 mg tablet,disintegrating 4 mg PO Q6H PRN (Reason: nausea and vomiting) Qty: 14 0RF oxycodone-acetaminophen 7.5-325 mg tablet 1 tab PO TID PRN (Reason: Pain) acetaminophen [Tylenol Extra Strength] 500 mg Tablet 1,000 mg PO Q6H PRN (Reason: Pain) Discharge Orders: Discharge ED (Routine); Ordered 08/04/24 Ordered By: Karen Mitchell Referrals: Briana Dumas DO [Primary Care Provider] - Patient Instructions: Diverticulitis (DC), Diverticulitis Diet (ED), Abdominal Pain (ED) Activity Restrictions/Additional Instructions: As we discussed, we will cover you with antibiotics based on your previous history. Continue plan to follow-up with colorectal surgery in [place] for colonoscopy. You may also follow-up with primary care in the meantime. You need to return to the emergency department for worsening abdominal pain, repetitive episodes of vomiting, bloody stools, fevers, generally feeling worse or unwell, or any other concerns you may have. 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
[2024-08-04 10:29] LABS: Alanine Aminotransferase 23 U/L (0-33); Albumin Level 3.5 g/dL (3.5-5.2); Alkaline Phosphatase 87 U/L (35-105); Aspartate Amino Transferase 18 U/L (0-32); Blood Urea Nitrogen 9 mg/dL (6-20); Calcium 7.8 mg/dL (8.5-10.5); Carbon Dioxide 24 mmol/L (22-29); Chloride 104 mmol/L (98-107); Creatinine Clr Calc Pharmacy 170.6057; Globulin 3.7 g/dL (1.3-4.6); Glomerular Filtration Rate 94.7 mL/min (90-130); Glucose 94 mg/dL (65-115); Lipase 18 U/L (13-60); Osmolality Calculated 278 mOsm/kg (285-295); Sodium 135 mmol/L (136-145); Total Bilirubin 0.4 mg/dL (0.15-1.2); Total Protein 7.2 g/dL (6.6-8.7)
--- NOTE | 2024-08-04 10:32 | CTR_ITS ---
PROCEDURE INFORMATION: Exam: CT Abdomen And Pelvis With Contrast Exam date and time: 08/04/2024 11:08 AM Age: 34 years old Clinical indication: Abdominal pain; Generalized; Prior surgery; Surgery date: 6+ months; Surgery type: Gb, appy, hysterectomy, csection; Additional info: Abdominal pain, HX of diverticulitis TECHNIQUE: Imaging protocol: Computed tomography of the abdomen and pelvis with contrast. Radiation optimization: All CT scans at this facility use at least one of these dose optimization techniques: automated exposure control; mA and/or kV adjustment per patient size (includes targeted exams where dose is matched to clinical indication); or iterative reconstruction. Contrast material: OMNIPAQUE 350; Contrast volume: 100 ml; Contrast route: INTRAVENOUS (IV); COMPARISON: CT kidney stone [id number] 06/28/2024 9:59 PM RADIATION DOSE METRICS: Total DLP (mGy-cm): 1635.43 FINDINGS: Lungs: Visualized lung bases are clear. Liver: Mild focal fatty infiltration of the liver about the falciform ligament. The liver is mildly enlarged, measuring up to 24.8 cm. No suspicious hepatic masses. Gallbladder and biliary ducts: Status post cholecystectomy. No significant biliary ductal dilation. Pancreas: The pancreas is unremarkable. Spleen: The spleen is unremarkable. Adrenal glands: Stable appearance of 1.6 cm left adrenal nodule, internally measuring roughly 30 Hounsfield units. Kidneys and ureters: Kidneys are normal. No hydronephrosis or nephrolithiasis. Stomach and bowel: Nonobstructive bowel-gas pattern. Multiple loops of small bowel are fluid-filled and nondilated. Mild sigmoid diverticulosis. No definitive evidence of acute diverticulitis. Mild sigmoid diverticulitis could potentially be obscured. Appendix: No evidence of acute appendicitis. Intraperitoneal space: No significant free fluid in the abdomen or pelvis. No extraluminal free air. Vasculature: Abdominal aorta and its major branches are within normal limits. No abdominal aortic aneurysm. Lymph nodes: Prominent sub threshold bilateral inguinal lymph nodes. No pathologically enlarged lymphadenopathy. Urinary bladder: Urinary bladder is poorly visualized without obvious abnormality. Reproductive: Uterus is absent. Bones/joints: No acute osseous findings. Soft tissues: Visualized superficial soft tissues are within normal limits. CT/CT abdomen pelvis w con* [id number] IMPRESSION: 1. Mild sigmoid diverticulosis. No definitive evidence of acute diverticulitis. Mild sigmoid diverticulitis could potentially be obscured. 2. Multiple loops of small bowel are fluid-filled and nondilated. This is likely incidental but can be seen in the setting of mild nonspecific enteritis. 3. Stable appearance of 1.6 cm left adrenal nodule, internally measuring roughly 30 Hounsfield units. This appears unchanged from at least 04/04/2022. No follow-up is necessary. (Reference: Tong) REFERENCES: Tong SPARROW, et al. Management of Incidental Adrenal Masses: A White Paper of the ACR Incidental Findings Committee. J Am Chuck Radiol. 2017;14(8):5484-1233.
[2024-08-04 10:50] VITALS: RESP 22; O2SAT 100
[2024-08-04] MEDS: ondansetron 2 mg/ML SDV 2 mL 4 MG IVP (10:50)
[2024-08-04] MEDS: morphine 4 mg/mL SDV 1 mL IVP (10:50)
[2024-08-04 11:07] VITALS: BP 146/94; PULSE 67; O2SAT 93
[2024-08-04] MEDS: iohexol 350 mg/mL 500 mL Btl (per mL) IV (11:10)
[2024-08-04 11:45] LABS: Urine Appearance Clear (CLEAR); Urine Color Yellow (Yellow)
[2024-08-04 11:46] LABS: Add Urine Microscopic? YES
[2024-08-04 11:47] LABS: UA Manual Slide Review YES; UA Slide Review UA Slide Review Perf
[2024-08-04 11:49] LABS: Add Urine Culture? No; Hyaline Casts Urine 0-4 /lpf; Mucus Urine TRACE /hpf; RBC Urine 0-4 /hpf (0-2); Squamous Epithelial Cell Urine 0-4 /hpf (0-5); WBC Urine 0-4 /hpf (0-5)
[2024-08-04 12:35] VITALS: BP 161/102; PULSE 63; RESP 16; O2SAT 93
== END 2024-08-04 12:36 | disposition home or self-care (01) ==
PROVIDERS: Family Medicine; Emergency Provider Physician Assistant; PCP Family Medicine
DX: R10.9 Unspecified abdominal pain (principal); F17.210 Nicotine dependence, cigarettes, uncomplicated
CPT/HCPCS: 36415; 74177; 80053; 81001; 83690; 84703; 85025; 96374; 96375; 99285; J2270; J2405

== ENCOUNTER → 2024-10-27 13:02 | Outpatient (BNVA) | payer MEDICAID, SELFPAY | PROVIDERS: PCP Family Medicine; Visit Provider Emergency Medicine | DX: J02.9 Acute pharyngitis, unspecified (principal); R50.9 Fever, unspecified | CPT/HCPCS: 87400; 87880 ==

== ENCOUNTER 2024-11-06 11:20 | Emergency (ER) | payer MEDICAID, SELFPAY ==
[2024-11-06 11:22] VITALS: BP 161/84; PULSE 78; RESP 16; TEMP 36.4; O2SAT 98; BMI 52.6
--- NOTE | 2024-11-06 11:24 | ECG_ITS ---
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
--- NOTE | 2024-11-06 12:28 | CT_ITS ---
WS: [id number] CT CHEST ANGIOGRAPHY WITH REFORMATS HISTORY: abnormal CXR TECHNIQUE: Contiguous axial images are obtained through the chest during arterial injection of intravenous contrast. Images are reconstructed to evaluate the pulmonary arteries. MIP imaging also reviewed. All CT scans at [facility] use at least one of these dose optimization techniques: automated exposure control; mA and/or kV adjustment per patient size (includes targeted exams where dose is matched to clinical indication); or iterative reconstruction. CONTRAST: Omnipaque 350; 100 mL IV. DLP: 537.36 mGy.cm COMPARISON: 07/05/2022, chest radiograph 11/06/2024 Adequate opacification of the pulmonary arteries. No pulmonary embolism or filling defect. Beyond the segmental branches opacification is limited. Normal size thoracic aorta. Normal size pulmonary artery. Mild LEFT heart enlargement. No pericardial or pleural effusions. Slight elevation of the RIGHT hemidiaphragm. Mild peripheral interstitial thickening with subtle changes of tree-in-bud airspace disease. No dense pulmonary consolidations. 4 mm nodule LEFT lower lobe was also present on the study from 07/05/2022. Bilateral hilar and perihilar lymphadenopathy. Lymph nodes measure up to 12 mm. This is probably reactive adenopathy. Mild persistent thickening of the LEFT adrenal gland is probably an adenoma which is stable. Prior cholecystectomy. Hepatic steatosis. CT/CT angio chest PE protcl [id number] IMPRESSION: 1. No pulmonary embolism. 2. Mild tree-in-bud airspace disease suggesting early changes of endobronchial pneumonia. There is no dense consolidation. 3. Mild reactive bilateral hilar and perihilar lymph nodes. 4. Mild LEFT heart enlargement. 5. Prior cholecystectomy.
[2024-11-06 13:00] LABS: Alanine Aminotransferase 22 U/L (0-33); Albumin Level 3.5 g/dL (3.5-5.2); Alkaline Phosphatase 96 U/L (35-105); Anion Gap 11.6 (5-19); Aspartate Amino Transferase 17 U/L (0-32); Blood Urea Nitrogen 10 mg/dL (6-20); Calcium 8.7 mg/dL (8.5-10.5); Carbon Dioxide 26 mmol/L (22-29); Chloride 105 mmol/L (98-107); Creatinine Clr Calc Pharmacy 232.6108; Globulin 3.5 g/dL (1.3-4.6); Glomerular Filtration Rate 139.6 mL/min (90-130); Glucose 118 mg/dL (65-115); HCG, Serum Qual Negative (Negative); Lipase 23 U/L (13-60); Osmolality Calculated 288 mOsm/kg (285-295); Potassium 3.6 mmol/L (3.5-5.1); Sodium 139 mmol/L (136-145); Total Bilirubin 0.3 mg/dL (0.15-1.2)
[2024-11-06 13:01] LABS: Basophils % 0.3 %; Eosinophils # 0.2 10^3/uL (0.0-0.8); Eosinophils % 1.3 %; Hematocrit 46.5 % (36-47); Lymphocytes # 3.9 10^3/uL (0.8-4.8); Lymphocytes % 29.2 %; Mean Corpuscular HGB Conc 32.9 g/dL (30-55); Mean Corpuscular Volume 94.3 fl (85-98); Monocytes # 0.7 10^3/uL (0.2-0.9); Neutrophils # 8.52 10^3/uL (1.8-7.7); Neutrophils % 63.8 %; Nucleated Red Blood Cells % 0 %; Platelet Count 207 10^3/cmm (157-399); Red Blood Count 4.93 10^6/uL (3.85-5.65); Red Cell Distribution Width 12.9 % (12.1-15.1); White Blood Count 13.34 10^3/uL (3.29-11.43)
[2024-11-06 13:03] LABS: Troponin(5th) Baseline < 6 ng/L (0-10)
[2024-11-06 13:05] LABS: Influenza A NEGATIVE (Negative); Influenza B NEGATIVE (Negative); Respiratory Syncytial Virus Ce NEGATIVE (Negative); SARS-CoV-2 PCR NEGATIVE (Negative)
[2024-11-06] MEDS: iohexol 350 mg/mL 500 mL Btl (per mL) IV (13:24)
--- NOTE | 2024-11-06 13:31 | ECG_ITS ---
[facility]24[facility]06 Pat Name: Ivy Cole Department: Room: Gender: Female [place] Fitter: : 1990 Requested By: Raquel Fletcher Order Number: [id number] Reading MD: KADIE BLUM Measurements Intervals [place] Rate: 68 P: 58 RI: 141 QRS: 74 QRSD: 85 T: 74 QT: 366 QTc: 389 Interpretive Statements SINUS RHYTHM Compared to ECG 11/06/2024 11:24:50 Short RI interval no longer present Right-axis deviation no longer present T-wave abnormality no longer present Electronically Signed On 11-10-2024 23:53:27 CONTROL CHEMIST by KADIE BLUM [email or web address]
[2024-11-06 14:00] VITALS: BP 155/101; PULSE 73; O2SAT 99
[2024-11-06 14:47] VITALS: PULSE 70; O2SAT 99
[2024-11-06 15:04] VITALS: BP 158/98; PULSE 70; O2SAT 98
[2024-11-06 15:08] LABS: Troponin 5 2HR Delta 0.00001 ABS# (0-10)
== END 2024-11-06 15:16 | disposition home or self-care (01) ==
PROVIDERS: Emergency Medicine; Physician Assistant; Emergency Provider Family Medicine; PCP Family Medicine
DX: J18.9 Pneumonia, unspecified organism (principal); Z11.52 Encounter for screening for COVID-19
CPT/HCPCS: 36415; 71045; 71275; 80053; 83690; 84484; 84703; 85025; 87637; 93005; 99285

== ENCOUNTER 2024-12-28 14:33 | Emergency (ER) | payer MEDICAID, SELFPAY ==
[2024-12-28 14:35] VITALS: BP 181/133; PULSE 81; TEMP 36.7; O2SAT 96; BMI 51.6
--- NOTE | 2024-12-28 14:38 | W.ED.GENADLT ---
HPI - General Adult General: Chief complaint: Urogenital-Female Stated complaint: back and abd pain, n/v/f, chills Time Seen by Provider: 12/28/24 14:38 History of Present Illness: 34-year-old female presents to the emergency room with complaints of left lower quadrant abdominal pain. Patient has a history of diverticulitis in the past. She has had this pain for the last 3 days. In conjunction with his surgeon she sees in [place] she usually will try a straight liquid diet for a few days once her symptoms started often this seems to resolve the issue. He has required admission in the past she has not recently been on any antibiotics she denies any medic easier melena. No fever. She has previously had a colonoscopy regarding this to confirm diverticuli she has not had any history of ruptures or perforations related to infections. He states she usually gets a couple of episodes a year. Associated symptoms: Reports nausea; Deny chest pain, dyspnea or rash Related Data Home Medications ?Medication ?Instructions ?Recorded ?Confirmed acetaminophen 500 mg tablet 1,000 mg PO Q6H PRN Pain 08/04/24 12/28/24 (Tylenol Extra Strength) ondansetron 4 mg disintegrating 4 mg PO Q8H PRN nausea/emesis 12/28/24 12/28/24 tablet Previous Rx's ?Medication ?Instructions ?Recorded albuterol sulfate 90 mcg/actuation 2 puff inhalation Q6H PRN 10/27/24 aerosol inhaler shortness of breath or wheezing #8.5 grams amoxicillin 875 mg-potassium 1 tab PO BID #14 tabs 12/28/24 clavulanate 125 mg tablet promethazine 25 mg tablet 25 mg PO Q6H PRN nausea and 12/28/24 vomiting #20 tabs Allergies Allergy/AdvReac Type Severity Reaction Status Date / Time cephalexin (From Keflex) Allergy Unknown Verified 12/28/24 14:42 Sulfa (Sulfonamide Allergy Unknown Verified 12/28/24 14:42 Antibiotics) sulfamethoxazole (From Allergy Unknown Verified 12/28/24 14:42 Bactrim) tramadol Allergy ADR-Swelling Verified 12/28/24 14:42 of the Eye trimethoprim (From Bactrim) Allergy Unknown Verified 12/28/24 14:42 ketorolac (From Toradol) AdvReac ADR-Swelling Verified 12/28/24 14:42 of the Eye/ SWEATING Review of Systems Const: Denies: fever(s) or chills Card: Denies: chest pain Resp: Denies: dyspnea GI: Reports: abdominal pain, nausea and hematemesis (Tiny streaks); Denies: coffee ground emesis, hematochezia, melena or mucus in stool : Denies: dysuria, urinary frequency or urinary urgency Musc: Denies: neck pain or back pain Skin/Breast: Denies: rash PFSH ED PFSH: Medical History Hemorrhagic cyst of left ovary Demyelinating disease of central nervous system Rheumatoid arthritis Chronic migraine without aura, intractable, with status migrainosus Immunization counseling High risk medication use Positive LOKESH (antinuclear antibody) Inflammatory arthritis Epidermoid cyst of face surgically removed Anxiety Depression Stomach ulcer No pertinent past medical history Surgical History H/O tubal ligation History of cholecystectomy History of appendectomy History of delivery History of hysterectomy History of tonsillectomy Family History Mother Colon cancer Diabetes Hyperlipidemia Hypertension Stroke Heart disease Father Diabetes Hypertension Thyroid disease Denies family history of Clotting disorder Chronic kidney disease (CKD) Bleeding disorder Social History Smoking and tobacco/nicotine status: never used tobacco/nicotine Substance/Drug Use: never Physical Exam Const: COMMON NORMALS: no acute distress GENERAL APPEARANCE: cooperative and comfortable ORIENTATION/CONSCIOUSNESS: Yes awake, Yes oriented to person, Yes oriented to place and Yes oriented to time HENMT: COMMON NORMALS: normocephalic, atraumatic and hearing grossly normal bilaterally HEAD & SCALP: normocephalic and atraumatic Resp: COMMON NORMALS: normal respiratory effort, No retractions, No use of accessory muscles and clear to auscultation bilaterally AUSCULTATION: clear to auscultation bilaterally Cardio: COMMON NORMALS: regular rate, regular rhythm and No murmurs present (Cardio) RATE: regular rate RHYTHM: regular rhythm GI: COMMON NORMALS: Soft to palpation and No hepatosplenomegaly present AUSCULTATION: Yes normoactive bowel sounds PALPATION: Yes Soft to palpation, No Tenderness to palpation present (GI), No Guarding due to palpation present (GI) and Yes No hepatosplenomegaly present Extremity: COMMON NORMALS: normal to inspection, capillary refill normal, no clubbing, cyanosis or edema, no calf tenderness and no pedal edema Neuro: SENSORIUM/ORIENTATION: Yes oriented to person, Yes oriented to place and Yes oriented to time Skin: COMMON NORMALS: no rashes or lesions noted GENERAL SKIN EXAM: no rashes or lesions noted Course Vital Signs: Vital signs: Vital Signs Temperature 98.0 F 12/28/24 14:35 Pulse Rate 78 12/28/24 16:04 Respiratory Rate 15 12/28/24 14:53 Blood Pressure 146/92 12/28/24 16:04 Pulse Oximetry 96 12/28/24 16:04 Oxygen Delivery Me thod Room Air 12/28/24 14:53 MDM - General Adult Medical Decision Making CT does not show radiographic evidence of diverticulitis however patient has left lower quadrant abdominal pain with diarrhea and leukocytosis. Urine did not show significant abnormalities. Will go ahead and treat with Augmentin 875 twice daily for 7 days have her follow-up with primary care doctor clinical diet for the next 2 to 3 days and advance as tolerated return if she has further problems Differential Diagnosis Diverticulitis volvulus UTI pyelonephritis nephrolithiasis Medical Records I reviewed the patient's medical records. Lab Data I reviewed the patient's lab results. 12/28/24 15:00 12/28/24 15:00 Radiology Impressions Abdomen/Pelvis CT 12/28/24 15:03 IMPRESSION: 1. No renal obstruction or stone. No ureteral stone. 2. Prior appendectomy and hysterectomy. 3. Prior cholecystectomy. 4. No GI tract obstruction. 5. Minimal sigmoid diverticulosis without acute diverticulitis. 6. Mild hepatomegaly. Laboratory Results WBC 13.79 10^3/uL (3.29-11.43) H 12/28/24 15:00 RBC 4.99 10^6/uL (3.85-5.65) 12/28/24 15:00 Hgb 15.60 g/dL (11.27-16.99) 12/28/24 15:00 Hct 46.9 % (36-47) 12/28/24 15:00 MCV 94.0 fl (85-98) 12/28/24 15:00 MCH 31.3 pg (27-33) 12/28/24 15:00 MCHC 33.3 g/dL (30-55) 12/28/24 15:00 RDW 12.7 % (12.1-15.1) 12/28/24 15:00 Plt Count 218 10^3/cmm (157-399) 12/28/24 15:00 MPV 10.2 fL (7.4-10.4) 12/28/24 15:00 Neut % (Auto) 61.2 % 12/28/24 15:00 Lymph % (Auto) 32.9 % 12/28/24 15:00 [place] % (Auto) 3.7 % 12/28/24 15:00 Eos % (Auto) 1.5 % 12/28/24 15:00 Baso % (Auto) 0.4 % 12/28/24 15:00 Neut # (Auto) 8.45 10^3/uL (1.8-7.7) H 12/28/24 15:00 Lymph # (Auto) 4.5 10^3/uL (0.8-4.8) 12/28/24 15:00 [place] # (Auto) 0.5 10^3/uL (0.2-0.9) 12/28/24 15:00 Eos # (Auto) 0.2 10^3/uL (0.0-0.8) 12/28/24 15:00 Baso # (Auto) 0.1 10^3/uL (0.0-0.1) 12/28/24 15:00 Nucleated RBC % (auto) 0 % 12/28/24 15:00 Nucleated RBCs # 0.0 /100WBC 12/28/24 15:00 Sodium 137 mmol/L (136-145) 12/28/24 15:00 Potassium 3.6 mmol/L (3.5-5.1) 12/28/24 15:00 Chloride 101 mmol/L (98-107) 12/28/24 15:00 Carbon Dioxide 25 mmol/L (22-29) 12/28/24 15:00 Anion Gap 14.6 (5-19) 12/28/24 15:00 BUN 12 mg/dL (6-20) 12/28/24 15:00 Creatinine 0.7 mg/dL (0.5-0.9) 12/28/24 15:00 GFR Calculation 94.7 mL/min (90-130) 12/28/24 15:00 Glucose 106 mg/dL (65-115) 12/28/24 15:00 Calculated Osmolality 284 mOsm/kg (285-295) L 12/28/24 15:00 Calcium 8.7 mg/dL (8.5-10.5) 12/28/24 15:00 Total Bilirubin 0.3 mg/dL (0.15-1.2) 12/28/24 15:00 AST 19 U/L (0-32) 12/28/24 15:00 ALT 24 U/L (0-33) 12/28/24 15:00 Alkaline Phosphatase 92 U/L (35-105) 12/28/24 15:00 Total Protein 7.3 g/dL (6.6-8.7) 12/28/24 15:00 Albumin 3.7 g/dL (3.5-5.2) 12/28/24 15:00 Globulin 3.6 g/dL (1.3-4.6) 12/28/24 15:00 Lipase 24 U/L (13-60) 12/28/24 15:00 Urine Color Yellow (Yellow) 12/28/24 14:45 Urine Appearance Slightly cloudy (CLEAR) 12/28/24 14:45 Urine pH 6 (5-7) 12/28/24 14:45 Ur Specific [place] 1.015 (1.005-1.030) 12/28/24 14:45 Urine Protein Neg (Negative) 12/28/24 14:45 Urine Glucose (UA) Norm (Normal) 12/28/24 14:45 Urine Ketones Negative (Negative) 12/28/24 14:45 Urine Blood 2+ (Negative) H 12/28/24 14:45 Urine Nitrate Negative (Negative) 12/28/24 14:45 Urine Bilirubin Neg (Negative) 12/28/24 14:45 Urine Urobilinogen Norm mg/dL (Negative) 12/28/24 14:45 Ur Leukocyte Esterase Negative (Negative) 12/28/24 14:45 Urine RBC 3-5 /hpf (0-2) 12/28/24 14:45 Urine WBC 0-5 /hpf (0-5) 12/28/24 14:45 Ur Squamous Epith Cells 0-5 /hpf (0-5) 12/28/24 14:45 Amorphous Sediment Not Reportable 12/28/24 14:45 Urine Bacteria None seen /hpf (NONE) 12/28/24 14:45 Hyaline Casts 0-4 /lpf H 12/28/24 14:45 All radiology interpretation(s) finalized by discharge Discharge Plan Discharge Patient Disposition: Home Clinical Impression: Diverticulitis Condition: Stable Prescriptions: New amoxicillin-pot clavulanate 875-125 mg tablet 1 tab PO BID Qty: 14 0RF promethazine 25 mg tablet 25 mg PO Q6H PRN (Reason: nausea and vomiting) Qty: 20 0RF No Action albuterol sulfate 90 mcg/actuation HFA aerosol inhaler 2 puff inhalation Q6H PRN (Reason: shortness of breath or wheezing) Qty: 8.5 0RF ondansetron 4 mg tablet,disintegrating 4 mg PO Q8H PRN (Reason: nausea/emesis) acetaminophen [Tylenol Extra Strength] 500 mg Tablet 1,000 mg PO Q6H PRN (Reason: Pain) Discharge Orders: Discharge ED (Routine); Ordered 12/28/24 Ordered By: Raghu Mcleod Referrals: Briana Dumas DO [Primary Care Provider] - Patient Instructions: Opioid Safety, Pain Management Activity Restrictions/Additional Instructions: Thank you for choosing [facility] for your healthcare needs today. It is very important that you follow up as instructed or that you return to the Emergency Department should you have concerns or if your condition changes or worsens in any way. You were seen today with complaint of left lower quadrant abdominal pain along with diarrhea. CT did not show radiographic findings of diverticulitis. Your white count is mildly elevated. Based on your symptoms and your history we will put you on a short course of Augmentin twice a day for 7 days follow-up with your primary care doctor you can also use promethazine as needed for nausea vomiting would recommend simple carbohydrate diet for the next several days and advance as tolerated. Follow-up with your primary care physician or career center advisor. 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
[2024-12-28 14:53] VITALS: BP 152/98; PULSE 84; RESP 15; O2SAT 98
[2024-12-28 14:58] LABS: Bacteria Urine None Seen /hpf; Hyaline Casts Urine 0-4 /lpf; Squamous Epithelial Cell Urine 0-5 /hpf (0-5); WBC Urine 0-5 /hpf (0-5)
[2024-12-28 15:02] LABS: Add Urine Culture? No; Add Urine Microscopic? YES; Bilirubin Urine Neg (Negative); Blood Urine 2+ (Negative); Glucose Urine UA Norm (Normal); Ketones Urine Negative (Negative); Leukocyte Esterase Urine Negative (Negative); Nitrate Urine Negative (Negative); Protein Urine Neg (Negative); Specific Gravity, Urine 1.015 (1.005-1.030); Urine Appearance Slightly Cloudy (CLEAR); Urine Color Yellow (Yellow); Urobilinogen Urine Norm (Negative); pH Urine 6 (5-7)
--- NOTE | 2024-12-28 15:03 | CT_ITS ---
WS: [id number] CT ABDOMEN AND PELVIS NONCONTRAST HISTORY: LEFT flank pain. TECHNIQUE: Imaging performed through the abdomen and pelvis. Coronal and sagittal reformats are submitted. All CT scans at [facility] use at least one of these dose optimization techniques: automated exposure control; mA and/or kV adjustment per patient size (includes targeted exams where dose is matched to clinical indication); or iterative reconstruction. DLP: 1321.23 mGy.cm COMPARISON: 08/04/2024 Lower thorax: 2 mm nodule RIGHT lung base. 3 mm nodule LEFT lung base. Heart size is normal. Small hiatal hernia. Liver: Moderately enlarged liver. Focal fatty sparing along the falciform ligament. Gallbladder: 2 Pancreas: Normal size and attenuation. Normal pancreatic duct. No pancreatitis or mass. Spleen: Normal. Adrenal glands: Normal RIGHT adrenal gland. LEFT adrenal 12 mm benign adenoma is stable. Right kidney: Normal size kidney with no mass or hydronephrosis. Left kidney: Normal size kidney with no mass or hydronephrosis. Aorta: Mild atherosclerosis abdominal aorta with no aneurysm. No free fluid, intraperitoneal air or significant lymphadenopathy. GI tract: No GI tract obstruction. No colitis. Prior appendectomy. Diffuse moderate constipation. Mild sigmoid diverticulosis. Abdominal wall: Infraumbilical abdominal wall hernia contains fat only. Pelvis: Prior hysterectomy. No free fluid or adenopathy. Osseous structures: Unremarkable. CT/CT kidney stone [id number] IMPRESSION: 1. No renal obstruction or stone. No ureteral stone. 2. Prior appendectomy and hysterectomy. 3. Prior cholecystectomy. 4. No GI tract obstruction. 5. Minimal sigmoid diverticulosis without acute diverticulitis. 6. Mild hepatomegaly.
[2024-12-28 15:07] LABS: Basophils # 0.1 10^3/uL (0.0-0.1); Basophils % 0.4 %; Eosinophils # 0.2 10^3/uL (0.0-0.8); Eosinophils % 1.5 %; Hematocrit 46.9 % (36-47); Lymphocytes # 4.5 10^3/uL (0.8-4.8); Lymphocytes % 32.9 %; Mean Corpuscular HGB Conc 33.3 g/dL (30-55); Mean Corpuscular Hemoglobin 31.3 pg (27-33); Mean Platelet Volume 10.2 fL (7.4-10.4); Monocytes # 0.5 10^3/uL (0.2-0.9); Monocytes % 3.7 %; Neutrophils # 8.45 10^3/uL (1.8-7.7); Neutrophils % 61.2 %; Nucleated Red Blood Cells % 0 %; Platelet Count 218 10^3/cmm (157-399); Red Blood Count 4.99 10^6/uL (3.85-5.65); Red Cell Distribution Width 12.7 % (12.1-15.1); White Blood Count 13.79 10^3/uL (3.29-11.43)
[2024-12-28] MEDS: morphine 4 mg/mL SDV 1 mL IVP (15:10)
[2024-12-28] MEDS: ondansetron 2 mg/ML SDV 2 mL 4 MG IVP (15:11)
[2024-12-28 15:24] LABS: Alanine Aminotransferase 24 U/L (0-33); Albumin Level 3.7 g/dL (3.5-5.2); Alkaline Phosphatase 92 U/L (35-105); Anion Gap 14.6 (5-19); Aspartate Amino Transferase 19 U/L (0-32); Blood Urea Nitrogen 12 mg/dL (6-20); Calcium 8.7 mg/dL (8.5-10.5); Carbon Dioxide 25 mmol/L (22-29); Chloride 101 mmol/L (98-107); Creatinine Clr Calc Pharmacy 164.2416; Globulin 3.6 g/dL (1.3-4.6); Glomerular Filtration Rate 94.7 mL/min (90-130); Glucose 106 mg/dL (65-115); Lipase 24 U/L (13-60); Osmolality Calculated 284 mOsm/kg (285-295); Potassium 3.6 mmol/L (3.5-5.1); Sodium 137 mmol/L (136-145); Total Bilirubin 0.3 mg/dL (0.15-1.2); Total Protein 7.3 g/dL (6.6-8.7)
[2024-12-28 15:34] LABS: Slide Review Slide Review Perform
[2024-12-28 16:04] VITALS: BP 146/92; PULSE 78; O2SAT 96
== END 2024-12-28 16:10 | disposition home or self-care (01) ==
PROVIDERS: Emergency Provider Family Medicine; PCP Family Medicine
DX: K57.92 Diverticulitis of intestine, part unspecified, without perforation or abscess without bleeding (principal)
CPT/HCPCS: 36415; 74176; 80053; 81001; 83690; 85025; 96374; 96375; 99285; J2270; J2405

== ENCOUNTER 2024-12-31 14:37 | Emergency (ER) | payer MEDICAID, SELFPAY ==
[2024-12-31 14:40] VITALS: BP 180/120; PULSE 92; RESP 17; TEMP 36.4; O2SAT 98; BMI 51.6
[2024-12-31 15:59] LABS: Basophils % 0.3 %; Eosinophils # 0.2 10^3/uL (0.0-0.8); Eosinophils % 1.4 %; Hematocrit 46.2 % (36-47); Lymphocytes # 4.2 10^3/uL (0.8-4.8); Lymphocytes % 33.2 %; Mean Corpuscular HGB Conc 32.7 g/dL (30-55); Mean Corpuscular Hemoglobin 31.6 pg (27-33); Mean Corpuscular Volume 96.7 fl (85-98); Mean Platelet Volume 10.3 fL (7.4-10.4); Monocytes # 0.6 10^3/uL (0.2-0.9); Monocytes % 4.9 %; Neutrophils # 7.53 10^3/uL (1.8-7.7); Nucleated Red Blood Cells % 0 %; Platelet Count 203 10^3/cmm (157-399); Red Blood Count 4.78 10^6/uL (3.85-5.65); Red Cell Distribution Width 12.8 % (12.1-15.1); White Blood Count 12.58 10^3/uL (3.29-11.43)
[2024-12-31 16:18] LABS: Alanine Aminotransferase 21 U/L (0-33); Albumin Level 3.5 g/dL (3.5-5.2); Alkaline Phosphatase 92 U/L (35-105); Anion Gap 13.9 (5-19); Aspartate Amino Transferase 17 U/L (0-32); Blood Urea Nitrogen 9 mg/dL (6-20); Calcium 8.9 mg/dL (8.5-10.5); Carbon Dioxide 24 mmol/L (22-29); Chloride 104 mmol/L (98-107); Creatinine Clr Calc Pharmacy 164.2416; Globulin 3.6 g/dL (1.3-4.6); Glomerular Filtration Rate 94.7 mL/min (90-130); Glucose 86 mg/dL (65-115); Osmolality Calculated 284 mOsm/kg (285-295); Potassium 3.9 mmol/L (3.5-5.1); Sodium 138 mmol/L (136-145); Total Bilirubin 0.3 mg/dL (0.15-1.2); Total Protein 7.1 g/dL (6.6-8.7)
[2024-12-31 16:22] LABS: Slide Review Slide Review Perform
--- NOTE | 2024-12-31 16:46 | CTR_ITS ---
PROCEDURE INFORMATION: Exam: CT Abdomen And Pelvis With Contrast Exam date and time: 12/31/2024 6:50 PM Age: 34 years old Clinical indication: Abdominal pain; Generalized; Prior surgery; Surgery date: 6+ months; Surgery type: Gb, appy, hysterectomy TECHNIQUE: Imaging protocol: Computed tomography of the abdomen and pelvis with contrast. Radiation optimization: All CT scans at this facility use at least one of these dose optimization techniques: automated exposure control; mA and/or kV adjustment per patient size (includes targeted exams where dose is matched to clinical indication); or iterative reconstruction. Contrast material: OMNIPAQUE 350; Contrast volume: 100 ml; Contrast route: INTRAVENOUS (IV); COMPARISON: 1. CT kidney stone [id number] 12/28/2024 3:[address] abdomen pelvis w con* [id number] 08/04/2024 11:08 AM RADIATION DOSE METRICS: Total DLP (mGy-cm): 1413.03 FINDINGS: Liver: Hepatic steatosis and hepatomegaly. Liver measures 23 cm in the craniocaudal dimension. Gallbladder and biliary ducts: Surgically absent gallbladder. No significant biliary ductal dilatation. Pancreas: Normal. No ductal dilation. Spleen: Normal. No splenomegaly. Adrenal glands: Normal. No mass. Kidneys and ureters: Normal. No hydronephrosis. Stomach and bowel: Sigmoid colon diverticulosis. Mild wall thickening with minimal adjacent fat stranding involving a segment of the sigmoid colon located just superior to the urinary bladder. Findings consistent with acute diverticulitis. Appendix: No evidence of appendicitis. Intraperitoneal space: Unremarkable. No free air. No significant fluid collection. Vasculature: Unremarkable. No abdominal aortic aneurysm. Lymph nodes: Unremarkable. No enlarged lymph nodes. Urinary bladder: Tiny focus of air anteriorly in the urinary bladder. Reproductive: Unremarkable as visualized. Bones/joints: Unremarkable. No acute fracture. Soft tissues: Unremarkable. CT/CT abdomen pelvis w con* [id number] IMPRESSION: 1. Sigmoid colon diverticulosis. Mild wall thickening with minimal adjacent fat stranding involving a segment of the sigmoid colon located just superior to the urinary bladder. Findings consistent with acute diverticulitis. 2. Tiny focus of air anteriorly in the urinary bladder. If there is no history of recent urinary bladder catheterization, then this finding would be concerning for colovesical fistula secondary to aforementioned diverticulitis.
--- NOTE | 2024-12-31 18:14 | ED_ITS ---
HPI - Female Genitourinary 2 General: Chief complaint: Abdominal Pain Stated complaint: abd pain, unable to pee Time Seen by Provider: 12/31/24 17:57 Source: patient Mode of arrival: ambulatory Limitations: no limitations History of Present Illness: Patient is a 34-year-old female who presents today with abdominal pain and difficulty urinating. Patient states that she has not been able to truly urinate in 2 days. She reports that when she attempts to urinate it is only a dribble. She notes that the few drops that she is able to get out cause her pain (burning). Reports being nauseous. No vomiting. No obvious flank pain. Was here a few days ago with abdominal pain that she attributed to diverticulitis. Had CT scan performed showing no diverticulitis however based on symptoms was placed on Augmentin. UA at that visit appeared clear. She feels like abdominal pain is not improving. She denies any vaginal bleeding, vaginal discharge, painful intercourse, new sexual partners, or concern for STDs. MD elicited complaint: dysuria and difficulty urinating Onset (ago): day(s) Location of symptoms: suprapubic Severity: moderate Quality of pain: sharp, dull and burning Consistency: constant Vaginal discharge: none Vaginal bleeding: none Urinary symptoms: Difficulty Urinating, Dysuria, Flank Pain and Foul Smelling Urine Exacerbating factors: urination Relieving factors: none Associated symptoms: Reports abdominal pain and nausea; Deny headache(s) or vaginal discharge Patient : No (s/p hysterectomy) Related Data Home Medications ?Medication ?Instructions ?Recorded ?Confirmed acetaminophen 500 mg tablet 1,000 mg PO Q6H PRN Pain 1 10/04/23 12/28/24 (Tylenol Extra Strength) ondansetron 4 mg disintegrating 4 mg PO Q8H PRN nausea /emesis 12/28/24 12/28/24 tablet Previous Rx's ?Medication ?Instructions ?Recorded albuterol sulfate 90 mcg/actuation 2 puff inhalation Q 6H PRN 10/27/24 aerosol inhaler shortness of breath or wheez ing #8.5 grams amoxicillin 875 mg-potassium 1 tab PO BID #14 tabs clavulanate 125 mg tablet promethazine 25 mg tablet 25 mg PO Q6H PRN nausea and 12/28/24 vomiting #20 tabs Allergies Allergy/AdvReac Type Severity Reaction Status Date / Time cephalexin (From Keflex) Allergy Unknown Verified 12/28/24 14:42 Sulfa (Sulfonamide Allergy Unknown Verified 12/28/24 14:42 Antibiotics) sulfamethoxazole (From Allergy Unknown Verified 12/28/24 14:42 Bactrim) tramadol Allergy ADR-Swelling Verified 12/28/24 14:42 of the Eye trimethoprim (From Bactrim) Allergy Unknown Verified 12/28/24 14:42 ketorolac (From Toradol) AdvReac ADR-Swelling Verified 12/28/24 14:42 of the Eye/ SWEATING Review of Systems 2 Const: Denies: fever(s) Card: Denies: chest pain Resp: Denies: dyspnea GI: Reports: abdominal pain and nausea; Denies: vomiting, diarrhea, hematochezia or melena : Reports: difficulty voiding, dysuria, urinary urgency and dribbling; Denies: flank pain, hematuria, vaginal bleeding or vaginal discharge Musc: Reports: back pain Neuro: Denies: headache(s) PFSH ED 2 PFSH: Medical History Hemorrhagic cyst of left ovary Demyelinating disease of central nervous system Rheumatoid arthritis Chronic migraine without aura, intractable, with status migrainosus Immunization counseling High risk medication use Positive LOKESH (antinuclear antibody) Inflammatory arthritis Epidermoid cyst of face surgically removed Anxiety Depression Stomach ulcer No pertinent past medical history Surgical History H/O tubal ligation History of cholecystectomy History of appendectomy History of delivery History of hysterectomy History of tonsillectomy Family History Mother Colon cancer Diabetes Hyperlipidemia Hypertension Stroke Heart disease Father Diabetes Hypertension Thyroid disease Denies family history of Clotting disorder Chronic kidney disease (CKD) Bleeding disorder Social History Smoking and tobacco/nicotine status: never used tobacco/nicotine Substance/Drug Use: never Physical Exam 2 Const: COMMON NORMALS: no acute distress, patient oriented x3, no limitations, alert and well nourished GENERAL APPEARANCE: cooperative NUTRITIONAL APPEARANCE: obese morbidly obese (BMI 51.6) Eye: COMMON NORMALS: no scleral icterus Neck/C-Spine: COMMON NORMALS: no lymphadenopathy Resp: COMMON NORMALS: normal respiratory effort and clear to auscultation bilaterally AUSCULTATION: clear to auscultation bilaterally Cardio: COMMON NORMALS: regular rate and regular rhythm RATE: regular rate RHYTHM: regular rhythm GI: COMMON NORMALS: Normal to inspection, nondistended, normoactive bowel sounds present, Soft to palpation and no masses INSPECTION: Yes normal to inspection AUSCULTATION: Yes normoactive bowel sounds PALPATION: Yes Soft to palpation, Yes Tenderness to palpation present (GI) (diffuse), No Guarding due to palpation present (GI) and No Rigid due to palpation OTHER: exam somewhat hindered by body habitus : COMMON NORMALS: Yes no CVA tenderness BLADDER/KIDNEY EXAM: Yes no CVA tenderness Back/Pelvis: COMMON NORMALS: no CVA tenderness, thoracic and lumbar spine normal to inspection and no thoracic nor lumbar tenderness Extremity: GENERAL: Yes normal exam except as noted Neuro: COMMON NORMALS: patient oriented x3, moves all extremities, no focal motor deficits, no sensory deficits noted and gait normal S ENSORIUM/ORIENTATION: Yes alert Skin: COMMON NORMALS: no rashes or lesions noted GENERAL SKIN EXAM: no rashes or lesions noted Course 2 Vital Signs: Vital signs: Vital Signs Temperature 97.5 F L 12/31/24 14:40 Pulse Rate 76 12/31/24 20:26 Respiratory Rate 18 12/31/24 19:33 Blood Pressure 132/96 12/31/24 20:26 Pulse Oximetry 100 12/31/24 20:26 Oxygen Delivery Me thod Room Air 12/31/24 19:38 [facility] - Female Medical Decision Making Patient is a 34-year-old female here for continued abdominal pain and difficulty with urination. She states she has been dribbling over the past few days. Bladder scanner here showing a little over 200 mL. Blood work today overall is unremarkable. White count is declining since her last ED visit. UA is still unremarkable. Would have a low suspicion for UTI. CT scan showing a small segment of acute diverticulitis just superior to her bladder. I feel this most likely is contributing to her symptoms. They did see a small foci of air that was due to her catheterization just prior to her CT scan. I do not have any concern for a colovesical fistula or gas-forming organisms. Patient states she has had a total of 3 doses of her Augmentin. Recommend she continue this as directed. Return to ED precautions discussed. We also discussed following up with her GI team in [place]. Discussed arnold but patient declines. Medical Records I reviewed the patient's medical records. Lab Data I reviewed the patient's lab results. 12/31/24 15:45 12/31/24 15:45 Radiology Impressions Abdomen/Pelvis CT 12/31/24 16:46 IMPRESSION: 1. Sigmoid colon diverticulosis. Mild wall thickening with minimal adjacent fat stranding involving a segment of the sigmoid colon located just superior to the urinary bladder. Findings consistent with acute diverticulitis. 2. Tiny focus of air anteriorly in the urinary bladder. If there is no history of recent urinary bladder catheterization, then this finding would be concerning for colovesical fistula secondary to aforementioned diverticulitis. ADDENDUM: 12/31/241954 THIS REPORT CONTAINS FINDINGS THAT MAY BE CRITICAL TO PATIENT CARE. The findings were verbally communicated via telephone conference with physician care management assistant Karen Mitchell at 7:49 PM CDT on 12/31/2024. The findings were acknowledged and understood. Laboratory Results WBC 12.58 10^3/uL (3.29-11.43) H 12/31/24 15:45 RBC 4.78 10^6/uL (3.85-5.65) 12/31/24 15:45 Hgb 15.10 g/dL (11.27-16.99) 12/31/24 15:45 Hct 46.2 % (36-47) 12/31/24 15:45 MCV 96.7 fl (85-98) 12/31/24 15:45 MCH 31.6 pg (27-33) 12/31/24 15:45 MCHC 32.7 g/dL (30-55) 12/31/24 15:45 RDW 12.8 % (12.1-15.1) 12/31/24 15:45 Plt Count 203 10^3/cmm (157-399) 12/31/24 15:45 MPV 10.3 fL (7.4-10.4) 12/31/24 15:45 Neut % (Auto) 60.0 % 12/31/24 15:45 Lymph % (Auto) 33.2 % 12/31/24 15:45 [place] % (Auto) 4.9 % 12/31/24 15:45 Eos % (Auto) 1.4 % 12/31/24 15:45 Baso % (Auto) 0.3 % 12/31/24 15:45 Neut # (Auto) 7.53 10^3/uL (1.8-7.7) 12/31/24 15:45 Lymph # (Auto) 4.2 10^3/uL (0.8-4.8) 12/31/24 15:45 [place] # (Auto) 0.6 10^3/uL (0.2-0.9) 12/31/24 15:45 Eos # (Auto) 0.2 10^3/uL (0.0-0.8) 12/31/24 15:45 Baso # (Auto) 0.0 10^3/uL (0.0-0.1) 12/31/24 15:45 Nucleated RBC % (auto) 0 % 12/31/24 15:45 Nucleated RBCs # 0.0 /100WBC 12/31/24 15:45 Sodium 138 mmol/L (136-145) 12/31/24 15:45 Potassium 3.9 mmol/L (3.5-5.1) 12/31/24 15:45 Chloride 104 mmol/L (98-107) 12/31/24 15:45 Carbon Dioxide 24 mmol/L (22-29) 12/31/24 15:45 Anion Gap 13.9 (5-19) 12/31/24 15:45 BUN 9 mg/dL (6-20) 12/31/24 15:45 Creatinine 0.7 mg/dL (0.5-0.9) 12/31/24 15:45 GFR Calculation 94.7 mL/min (90-130) 12/31/24 15:45 Glucose 86 mg/dL (65-115) 12/31/24 15:45 Calculated Osmolality 284 mOsm/kg (285-295) L 12/31/24 15:45 Lactic Acid 1.0 mmol/L (0.5-2.2) 12/31/24 15:45 Calcium 8.9 mg/dL (8.5-10.5) 12/31/24 15:45 Total Bilirubin 0.3 mg/dL (0.15-1.2) 12/31/24 15:45 AST 17 U/L (0-32) 12/31/24 15:45 ALT 21 U/L (0-33) 12/31/24 15:45 Alkaline Phosphatase 92 U/L (35-105) 12/31/24 15:45 Total Protein 7.1 g/dL (6.6-8.7) 12/31/24 15:45 Albumin 3.5 g/dL (3.5-5.2) 12/31/24 15:45 Globulin 3.6 g/dL (1.3-4.6) 12/31/24 15:45 Urine Color Yellow (Yellow) 12/31/24 18:15 Urine Appearance Clear (CLEAR) 12/31/24 18:15 Urine pH 5.5 (5-7) 12/31/24 18:15 Ur Specific [place] 1.024 (1.005-1.030) 12/31/24 18:15 Urine Protein Negative (Negative) 12/31/24 18:15 Urine Glucose (UA) Negative (Normal) 12/31/24 18:15 Urine Ketones Negative (Negative) 12/31/24 18:15 Urine Blood 1+ (Negative) A 12/31/24 18:15 Urine Nitrate Negative (Negative) 12/31/24 18:15 Urine Bilirubin Negative (Negative) 12/31/24 18:15 Urine Urobilinogen 1.0 mg/dL (Negative) 12/31/24 18:15 Ur Leukocyte Esterase Negative (Negative) 12/31/24 18:15 Urine RBC 3-5 /hpf (0-2) 12/31/24 18:15 Urine WBC 0-5 /hpf (0-5) 12/31/24 18:15 Ur Squamous Epith Cells 0-5 /hpf (0-5) 12/31/24 18:15 Amorphous Sediment Not Reportable 12/31/24 18:15 Urine Bacteria None seen /hpf (NONE) 12/31/24 18:15 Hyaline Casts 1.21 /lpf 12/31/24 18:15 All radiology interpretation(s) finalized by discharge Discharge Plan Discharge Patient Disposition: Home Clinical Impression: Diverticulitis Condition: Stable Prescriptions: No Action albuterol sulfate 90 mcg/actuation HFA aerosol inhaler 2 puff inhalation Q6H PRN (Reason: shortness of breath or wheezing) Qty: 8.5 0RF ondansetron 4 mg tablet,disintegrating 4 mg PO Q8H PRN (Reason: nausea/emesis) amoxicillin-pot clavulanate 875-125 mg tablet 1 tab PO BID Qty: 14 0RF promethazine 25 mg tablet 25 mg PO Q6H PRN (Reason: nausea and vomiting) Qty: 20 0RF acetaminophen [Tylenol Extra Strength] 500 mg Tablet 1,000 mg PO Q6H PRN (Reason: Pain) Discharge Orders: Discharge ED (Routine); Ordered 12/31/24 Ordered By: Karen Mitchell Referrals: Briana Dumas DO [Primary Care Provider] - Patient Instructions: Diverticulitis (DC) Activity Restrictions/Additional Instructions: Continue your antibiotics as directed. [place] liquid diet and advance as tolerated. You need to return to the emergency department for worsening abdominal pain, repetitive episodes of vomiting, bloody stools, fevers, generally feeling worse or unwell, or any other concerns you may have. You also need to return to the emergency department for urinary retention/inability to urinate on your own, feeling of severe bladder fullness or pressure, or any other concerns you may have. Stand Alone Forms: Work/School Release Print Language: Uruguayan Coding Level of Care Code ED Social Sciences Instructor for Jessica Cassidy
[2024-12-31 18:27] VITALS: BP 151/103; PULSE 93; RESP 20; O2SAT 98
[2024-12-31 18:35] LABS: Bilirubin Urine Negative (Negative); Blood Urine 1+ (Negative); Glucose Urine UA Negative (Normal); Ketones Urine Negative (Negative); Leukocyte Esterase Urine Negative (Negative); Nitrate Urine Negative (Negative); Protein Urine Negative (Negative); Specific Gravity, Urine 1.024 (1.005-1.030); Urine Appearance Clear (CLEAR); Urine Color Yellow (Yellow); pH Urine 5.5 (5-7)
[2024-12-31 18:41] LABS: Bacteria Urine None Seen /hpf; Hyaline Casts Urine 1.21 /lpf; Squamous Epithelial Cell Urine 0-5 /hpf (0-5); WBC Urine 0-5 /hpf (0-5)
[2024-12-31] MEDS: iohexol 350 mg/mL 500 mL Btl (per mL) IV (18:56)
[2024-12-31 19:33] VITALS: RESP 18; O2SAT 100
[2024-12-31] MEDS: ondansetron 2 mg/ML SDV 2 mL 4 MG IVP (19:33)
[2024-12-31] MEDS: morphine 4 mg/mL SDV 1 mL IVP (19:33)
[2024-12-31 19:38] VITALS: BP 159/80; PULSE 74; O2SAT 99
[2024-12-31 20:26] VITALS: BP 132/96; PULSE 76; O2SAT 100
== END 2024-12-31 20:27 | disposition home or self-care (01) ==
PROVIDERS: Emergency Medicine; Emergency Provider Physician Assistant; PCP Family Medicine
DX: K57.92 Diverticulitis of intestine, part unspecified, without perforation or abscess without bleeding (principal)
CPT/HCPCS: 36415; 51798; 74177; 80053; 81001; 83605; 85025; 87040; 96374; 96375; 99285; J2270; J2405

== ENCOUNTER 2025-01-10 21:35 | Emergency (ER) | payer MEDICAID, SELFPAY ==
[2025-01-10 22:00] VITALS: BP 182/94; PULSE 86; RESP 16; TEMP 36.8; O2SAT 97; BMI 54.8
[2025-01-10 22:28] LABS: Basophils # 0.1 10^3/uL (0.0-0.1); Basophils % 0.3 %; Eosinophils # 0.3 10^3/uL (0.0-0.8); Eosinophils % 1.6 %; Hematocrit 46.6 % (36-47); Lymphocytes # 4.4 10^3/uL (0.8-4.8); Lymphocytes % 26.8 %; Mean Corpuscular Volume 96.7 fl (85-98); Mean Platelet Volume 9.9 fL (7.4-10.4); Monocytes # 0.9 10^3/uL (0.2-0.9); Monocytes % 5.3 %; Neutrophils # 10.63 10^3/uL (1.8-7.7); Neutrophils % 65.6 %; Nucleated Red Blood Cells % 0 %; Platelet Count 242 10^3/cmm (157-399); Red Blood Count 4.82 10^6/uL (3.85-5.65); Red Cell Distribution Width 12.7 % (12.1-15.1); White Blood Count 16.22 10^3/uL (3.29-11.43)
[2025-01-10 22:49] LABS: Alanine Aminotransferase 20 U/L (0-33); Albumin Level 3.7 g/dL (3.5-5.2); Alkaline Phosphatase 101 U/L (35-105); Anion Gap 11.2 (5-19); Aspartate Amino Transferase 16 U/L (0-32); Blood Urea Nitrogen 7 mg/dL (6-20); Calcium 8.6 mg/dL (8.5-10.5); Carbon Dioxide 27 mmol/L (22-29); Chloride 103 mmol/L (98-107); Creatinine Clr Calc Pharmacy 170.6057; Globulin 3.8 g/dL (1.3-4.6); Glomerular Filtration Rate 94.7 mL/min (90-130); Glucose 92 mg/dL (65-115); Lipase 17 U/L (13-60); Osmolality Calculated 282 mOsm/kg (285-295); Potassium 4.2 mmol/L (3.5-5.1); Sodium 137 mmol/L (136-145); Total Bilirubin 0.5 mg/dL (0.15-1.2); Total Protein 7.5 g/dL (6.6-8.7)
[2025-01-10 23:23] VITALS: BP 122/96; PULSE 84; RESP 19; O2SAT 97
[2025-01-10 23:30] VITALS: BP 105/83; PULSE 82; O2SAT 98
[2025-01-10 23:34] LABS: Bilirubin Urine Negative (Negative); Blood Urine 1+ (Negative); Glucose Urine UA Negative (Normal); Ketones Urine Negative (Negative); Leukocyte Esterase Urine Negative (Negative); Nitrate Urine Negative (Negative); Protein Urine Negative (Negative); Specific Gravity, Urine 1.014 (1.005-1.030); Urine Appearance Clear (CLEAR); Urine Color Yellow (Yellow); pH Urine 6.5 (5-7)
[2025-01-10 23:36] LABS: Add Urine Microscopic? YES; Bacteria Urine None Seen /hpf; Hyaline Casts Urine 0-4 /lpf; Squamous Epithelial Cell Urine 0-5 /hpf (0-5); WBC Urine 0-5 /hpf (0-5)
--- NOTE | 2025-01-10 23:39 | CTR_ITS ---
PROCEDURE INFORMATION: Exam: CT Abdomen And Pelvis With Contrast Exam date and time: 01/11/2025 12:38 AM Age: 34 years old Clinical indication: Nausea and vomiting; Abdominal pain; Localized; Prior surgery; Surgery date: 6+ months; Surgery type: Gb. Appy. Hysterectomy. C/O lower abd pain with n/v. Recent history of diverticulitis. ; Additional info: Lower abdominal pain TECHNIQUE: Imaging protocol: Computed tomography of the abdomen and pelvis with contrast. Radiation optimization: All CT scans at this facility use at least one of these dose optimization techniques: automated exposure control; mA and/or kV adjustment per patient size (includes targeted exams where dose is matched to clinical indication); or iterative reconstruction. Contrast material: OMNI 350; Contrast volume: 100 ml; Contrast route: INTRAVENOUS (IV); COMPARISON: CT abdomen pelvis w con* [id number] 12/31/2024 6:50 PM RADIATION DOSE METRICS: Total DLP (mGy-cm): 1369 FINDINGS: Lungs: Lung bases are clear. Liver: There is focal hypodensity left lobe of the liver adjacent to the falciform ligament in keeping with focal fatty change unchanged from previous. Gallbladder and biliary ducts: There has been a cholecystectomy. Pancreas: The pancreas is normal. Spleen: The spleen is normal. Adrenal glands: The adrenal glands are normal. Kidneys and ureters: The kidneys are normal. There is no evidence of hydronephrosis. There is no evidence of renal or ureteral calcifications. Stomach and bowel: Mild diverticulosis is present in the distal colon. There is focal thickening of the mid sigmoid colon and inflammatory changes in the adjacent fat with small inflamed diverticulum seen superior to the urinary bladder. Findings are in keeping with acute diverticulitis. This is slightly more prominent than on 12/31/2024. No diverticular abscess is identified. There is no evidence of intestinal obstruction. Appendix: There has been an appendectomy. Intraperitoneal space: There is no free intraperitoneal air. There is no evidence of free intraperitoneal fluid. Vasculature: Unremarkable. No abdominal aortic aneurysm. Lymph nodes: There is no evidence of lymphadenopathy. Urinary bladder: Unremarkable as visualized. Reproductive: There has been a hysterectomy. There has been a hysterectomy. Bones/joints: Unremarkable. No acute fracture. Soft tissues: Unremarkable. CT/CT abdomen pelvis w con* [id number] IMPRESSION: Findings of acute diverticulitis slightly more prominent than on 12/31/2024.
--- NOTE | 2025-01-10 23:40 | ED_ITS ---
HPI - Abdominal Pain 2 General: Chief Complaint: Abdominal Pain Stated Complaint: ABD Pain\Spine Time Seen by Provider: 01/10/25 22:58 Source: patient Mode of arrival: ambulatory Limitations: no limitations History of Present Illness: Patient is a 34-year-old female with a history of diverticulitis, morbid obesity, previous abdominal surgeries of appendectomy/cholecystectomy/hysterectomy here for lower abdominal pain. Patient was seen earlier this month on 12/28 and diagnosed with diverticulitis. Her CT scan at that time did not show diverticulitis however she presented with identical symptoms to her previous flares and had leukocytosis this was treated with Augmentin. She returned to the emergency department 3 days later where she was having some urinary symptoms. Patient states she is now urinating normally. She states she was feeling better on the Augmentin but after completion began worsening again. She is complaining of pain throughout her lower abdomen with radiation into her back. She states she is defecating mucus and light-colored stools. Thinks maybe she has a fever this morning. She does have a primary care appointment scheduled for tomorrow. MD elicited complaint: abdominal pain Pertinent past history: diverticulitis Onset (ago): day(s) Pain Consistency: constant Location: Other (throughout lower abdomen) Severity: moderate Quality: sharp Radiation: none Migration to: no migration Exacerbating factors: nothing Relieving factors: nothing Associated Symptoms: Reports fever(s); Denies diarrhea, dysuria, hematochezia, melena and vomiting Related Data Home Medications ?Medication ?Instructions ?Recorded ?Confirmed acetaminophen 500 mg tablet 1,000 mg PO Q6H PRN Pain 1 10/04/23 12/28/24 (Tylenol Extra Strength) ondansetron 4 mg disintegrating 4 mg PO Q8H PRN nausea /emesis 12/28/24 12/28/24 tablet Previous Rx's ?Medication ?Instructions ?Recorded albuterol sulfate 90 mcg/actuation 2 puff inhalation Q 6H PRN 10/27/24 aerosol inhaler shortness of breath or wheez ing #8.5 grams amoxicillin 875 mg-potassium 1 tab PO BID #14 tabs clavulanate 125 mg tablet promethazine 25 mg tablet 25 mg PO Q6H PRN nausea and 12/28/24 vomiting #20 tabs ciprofloxacin HCl 500 mg tablet 500 mg PO Q12H #20 tab s 01/11/25 (Cipro) metronidazole 500 mg tablet 500 mg PO BID 10 days #20 tabs 01/11/25 Allergies Allergy/AdvReac Type Severity Reaction Status Date / Time cephalexin (From Keflex) Allergy Unknown Verified 01/10/25 22:05 Sulfa (Sulfonamide Allergy Unknown Verified 01/10/25 22:05 Antibiotics) sulfamethoxazole (From Allergy Unknown Verified 01/10/25 22:05 Bactrim) tramadol Allergy ADR-Swelling Verified 01/10/25 22:05 of the Eye trimethoprim (From Bactrim) Allergy Unknown Verified 01/10/25 22:05 ketorolac (From Toradol) AdvReac ADR-Swelling Verified 01/10/25 22:05 of the Eye/ SWEATING Review of Systems 2 Const: Reports: fever(s); Denies: body aches, fatigue or malaise Card: Denies: chest pain Resp: Denies: dyspnea GI: Reports: abdominal pain, mucus in stool and white/light colored stool; Denies: vomiting, diarrhea, hematochezia or melena : Denies: flank pain or dysuria Musc: Reports: back pain; Denies: neck pain, extremity pain, extremity swelling, joint pain, joint swelling or joint redness Skin/Breast: Denies: rash Neuro: Denies: headache(s), numbness in extremities, weakness in extremities, sensory changes or dizziness PFSH ED 2 PFSH: Medical History Hemorrhagic cyst of left ovary Demyelinating disease of central nervous system Rheumatoid arthritis Chronic migraine without aura, intractable, with status migrainosus Immunization counseling High risk medication use Positive LOKESH (antinuclear antibody) Inflammatory arthritis Epidermoid cyst of face surgically removed Anxiety Depression Stomach ulcer No pertinent past medical history Surgical History H/O tubal ligation History of cholecystectomy History of appendectomy History of delivery History of hysterectomy History of tonsillectomy Family History Mother Colon cancer Diabetes Hyperlipidemia Hypertension Stroke Heart disease Father Diabetes Hypertension Thyroid disease Denies family history of Clotting disorder Chronic kidney disease (CKD) Bleeding disorder Social History (Reviewed 01/11/25 @ 00:28 by LUCAS Johns Smoking and tobacco/nicotine status: never used tobacco/nicotine Substance/Drug Use: never Physical Exam 2 Const: COMMON NORMALS: no acute distress, patient oriented x3, no limitations, alert and well nourished GENERAL APPEARANCE: cooperative NUTRITIONAL APPEARANCE: obese morbidly obese (BMI 54.9) ORIENTATION/CONSCIOUSNESS: Yes awake, Yes oriented to person, Yes oriented to place and Yes oriented to time Eye: COMMON NORMALS: no scleral icterus Resp: COMMON NORMALS: normal respiratory effort and clear to auscultation bilaterally AUSCULTATION: clear to auscultation bilaterally Cardio: COMMON NORMALS: regular rate and regular rhythm RATE: regular rate RHYTHM: regular rhythm GI: COMMON NORMALS: Normal to inspection, nondistended, normoactive bowel sounds present and Soft to palpation INSPECTION: Yes normal to inspection AUSCULTATION: Yes normoactive bowel sounds PALPATION: Yes Soft to palpation and Yes Tenderness to palpation present (GI) (diffuse pain across lower abdomen) OTHER: exam somewhat limited due to body habitus : COMMON NORMALS: Yes no CVA tenderness BLADDER/KIDNEY EXAM: Yes no CVA tenderness Back/Pelvis: COMMON NORMALS: no CVA tenderness, thoracic and lumbar spine normal to inspection, thoraco-lumbar ROM normal and straight leg raise negative bilaterally THORACIC SPINE/UPPER BACK: No thoracic spinal tenderness and No paraspinal muscle tenderness LUMBAR SPINE/LOWER BACK: Yes paraspinal muscle tenderness PELVIS: Yes buttocks normal and No sciatic notch tenderness S ACRUM: no tenderness COCCYX: no tenderness Extremity: GENERAL: Yes normal exam except as noted Neuro: COMMON NORMALS: patient oriented x3, moves all extremities, no focal motor deficits, no sensory deficits noted and gait normal S ENSORIUM/ORIENTATION: Yes alert, Yes oriented to person, Yes oriented to place and Yes oriented to time Skin: COMMON NORMALS: no rashes or lesions noted GENERAL SKIN EXAM: no rashes or lesions noted Course 2 Vital Signs: Vital signs: Vital Signs Temperature 98.2 F 01/10/25 22:00 Pulse Rate 78 01/11/25 00:30 Respiratory Rate 19 H 01/10/25 23:23 Blood Pressure 123/75 01/11/25 00:30 Pulse Oximetry 97 01/11/25 00:30 Oxygen Delivery Me thod Room Air 01/10/25 23:30 MDM - Abdominal Pain Medical Decision Making Patient here for continued lower abdominal pain. History of diverticulitis. Was feeling better while on her Augmentin and finished this course late last week and now worsening again. Clinically she appears in NAD. She is not tachycardic or febrile. White count of 16,000. She has a normal lactic. Discussed potential options and patient would like to go home if possible. She was given IV Cipro/Flagyl prior to discharge and will place her on a 10-day course of this. She does have primary care follow-up tomorrow. Return ED precautions discussed. Medical Records I reviewed the patient's medical records. Lab Data I reviewed the patient's lab results. 01/10/25 22:15 01/10/25 22:15 Labs/Radiology: Radiology Impressions Abdomen/Pelvis CT 01/10/25 23:39 IMPRESSION: Findings of acute diverticulitis slightly more prominent than on 12/31/2024. Laboratory Results WBC 16.22 10^3/uL (3.29-11.43) H 01/10/25 22:15 RBC 4.82 10^6/uL (3.85-5.65) 01/10/25 22:15 Hgb 15.40 g/dL (11.27-16.99) 01/10/25 22:15 Hct 46.6 % (36-47) 01/10/25 22:15 MCV 96.7 fl (85-98) 01/10/25 22:15 MCH 32.0 pg (27-33) 01/10/25 22:15 MCHC 33.0 g/dL (30-55) 01/10/25 22:15 RDW 12.7 % (12.1-15.1) 01/10/25 22:15 Plt Count 242 10^3/cmm (157-399) 01/10/25 22:15 MPV 9.9 fL (7.4-10.4) 01/10/25 22:15 Neut % (Auto) 65.6 % 01/10/25 22:15 Lymph % (Auto) 26.8 % 01/10/25 22:15 [place] % (Auto) 5.3 % 01/10/25 22:15 Eos % (Auto) 1.6 % 01/10/25 22:15 Baso % (Auto) 0.3 % 01/10/25 22:15 Neut # (Auto) 10.63 10^3/uL (1.8-7.7) H 01/10/25 22:15 Lymph # (Auto) 4.4 10^3/uL (0.8-4.8) 01/10/25 22:15 [place] # (Auto) 0.9 10^3/uL (0.2-0.9) 01/10/25 22:15 Eos # (Auto) 0.3 10^3/uL (0.0-0.8) 01/10/25 22:15 Baso # (Auto) 0.1 10^3/uL (0.0-0.1) 01/10/25 22:15 Nucleated RBC % (auto) 0 % 01/10/25 22:15 Nucleated RBCs # 0.0 /100WBC 01/10/25 22:15 Sodium 137 mmol/L (136-145) 01/10/25 22:15 Potassium 4.2 mmol/L (3.5-5.1) 01/10/25 22:15 Chloride 103 mmol/L (98-107) 01/10/25 22:15 Carbon Dioxide 27 mmol/L (22-29) 01/10/25 22:15 Anion Gap 11.2 (5-19) 01/10/25 22:15 BUN 7 mg/dL (6-20) 01/10/25 22:15 Creatinine 0.7 mg/dL (0.5-0.9) 01/10/25 22:15 GFR Calculation 94.7 mL/min (90-130) 01/10/25 22:15 Glucose 92 mg/dL (65-115) 01/10/25 22:15 Calculated Osmolality 282 mOsm/kg (285-295) L 01/10/25 22:15 Lactic Acid 0.7 mmol/L (0.5-2.2) 01/10/25 22:15 Calcium 8.6 mg/dL (8.5-10.5) 01/10/25 22:15 Total Bilirubin 0.5 mg/dL (0.15-1.2) 01/10/25 22:15 AST 16 U/L (0-32) 01/10/25 22:15 ALT 20 U/L (0-33) 01/10/25 22:15 Alkaline Phosphatase 101 U/L (35-105) 01/10/25 22:15 Total Protein 7.5 g/dL (6.6-8.7) 01/10/25 22:15 Albumin 3.7 g/dL (3.5-5.2) 01/10/25 22:15 Globulin 3.8 g/dL (1.3-4.6) 01/10/25 22:15 Lipase 17 U/L (13-60) 01/10/25 22:15 Urine Color Yellow (Yellow) 01/10/25 23:21 Urine Appearance Clear (CLEAR) 01/10/25 23:21 Urine pH 6.5 (5-7) 01/10/25 23:21 Ur Specific [place] 1.014 (1.005-1.030) 01/10/25 23:21 Urine Protein Negative (Negative) 01/10/25 23:21 Urine Glucose (UA) Negative (Normal) 01/10/25 23:21 Urine Ketones Negative (Negative) 01/10/25 23:21 Urine Blood 1+ (Negative) A 01/10/25 23:21 Urine Nitrate Negative (Negative) 01/10/25 23:21 Urine Bilirubin Negative (Negative) 01/10/25 23:21 Urine Urobilinogen 1.0 mg/dL (Negative) 01/10/25 23:21 Ur Leukocyte Esterase Negative (Negative) 01/10/25 23:21 Urine RBC 6-10 /hpf (0-2) 01/10/25 23:21 Urine WBC 0-5 /hpf (0-5) 01/10/25 23:21 Ur Squamous Epith Cells 0-5 /hpf (0-5) 01/10/25 23:21 Amorphous Sediment Not Reportable 01/10/25 23:21 Urine Bacteria None seen /hpf (NONE) 01/10/25 23:21 Hyaline Casts 0-4 /lpf H 01/10/25 23:21 All radiology interpretation(s) finalized by discharge Discharge Plan Discharge Patient Disposition: Home Clinical Impression: Diverticulitis Condition: Stable Prescriptions: New metronidazole 500 mg tablet 500 mg PO BID 10 Days Qty: 20 0RF ciprofloxacin HCl [Cipro] 500 mg tablet 500 mg PO Q12H Qty: 20 0RF No Action albuterol sulfate 90 mcg/actuation HFA aerosol inhaler 2 puff inhalation Q6H PRN (Reason: shortness of breath or wheezing) Qty: 8.5 0RF ondansetron 4 mg tablet,disintegrating 4 mg PO Q8H PRN (Reason: nausea/emesis) amoxicillin-pot clavulanate 875-125 mg tablet 1 tab PO BID Qty: 14 0RF promethazine 25 mg tablet 25 mg PO Q6H PRN (Reason: nausea and vomiting) Qty: 20 0RF acetaminophen [Tylenol Extra Strength] 500 mg Tablet 1,000 mg PO Q6H PRN (Reason: Pain) Discharge Orders: Discharge ED (Routine); Ordered 01/11/25 Ordered By: Karen Mitchell Referrals: Briana Dumas DO [Primary Care Provider] - Patient Instructions: Diverticulitis, Diverticulitis (DC), Diverticulitis Diet (ED) Activity Restrictions/Additional Instructions: Please follow-up with primary care tomorrow for re-evaluation. You need to return to the emergency department at anytime for worsening abdominal pain, inability to tolerate your antibiotics, generally feeling worse or unwell, or any other concerns you may have. Print Language: Ugandan Coding Level of Care Code ED Turret Lathe Operator for Jessica Cassidy
[2025-01-10 23:41] LABS: Add Urine Culture? No
[2025-01-10] MEDS: morphine 4 mg/mL SDV 1 mL IVP (23:49)
[2025-01-10] MEDS: ondansetron 2 mg/ML SDV 2 mL 4 MG IVP (23:49)
[2025-01-10] MEDS: sodium chloride 0.9% 1,000 ML 999 ML IV (23:50)
[2025-01-11] VITALS (9 sets, daily range): BP systolic 123–155; BP diastolic 68–117; PULSE 69–78; O2SAT 95–98
[2025-01-11 00:11] LABS: Lactic Sepsis W/Reflex 0.7 mmol/L (0.5-2.2)
[2025-01-11] MEDS: iohexol 350 mg/mL 500 mL Btl (per mL) IV (00:42)
[2025-01-11] MEDS: ciprofloxacin 400 MG/200 ML PREMIX 200 MG IV (01:27)
[2025-01-11] MEDS: metroNIDAZOLE IV 500 MG/100 ML PREMIX 100 MG IV (01:27)
[2025-01-11] MEDS: morphine 4 mg/mL SDV 1 mL IVP (02:26)
== END 2025-01-11 03:36 | disposition home or self-care (01) ==
PROVIDERS: Emergency Medicine; Emergency Provider Physician Assistant; PCP Family Medicine
DX: K57.92 Diverticulitis of intestine, part unspecified, without perforation or abscess without bleeding (principal); Z98.890 Other specified postprocedural states
CPT/HCPCS: 36415; 74177; 80053; 81001; 83605; 83690; 85025; 96365; 96366; 96367; 96375; 96376; 99285; J0744; J2270; J2405; J3490; J7030

== ENCOUNTER 2025-03-28 22:59 | Emergency (ER) | payer MEDICAID, SELFPAY ==
--- OUTSIDE RECORDS SUMMARY | 2025-03-28 23:08 | XMS_ITS | Encounter Summary ---
Author Organization [facility] Address [address] [place] [address] Care Team Providers Care Staff Rn Name Role Phone Briana Dumas Primary Care Provider [phone] Reason for Visit * Reason Onset Date Comments Stacy 02/19/2025 Encounter Details Date Type Department Care Team (Late st Contact Info) Description 02/19/2025 Telephone [facility] [place] [facility] [address] [place] [address] Avtar Kumar MD [address] [facility] [address] [place] [address] Stacy Social History Tobacco Use Types Packs/Day Years Used Date Smoking Tobacco: Every Day Cigarettes Passive Smoke Exposure: Current Smokeless Tobacco: Never Alcohol Use Standard Drinks/Week Comments No 0 (1 standard drink = 0.6 oz pur e alcohol) Feeling Safe Answer Date Recorded Are you in a relationship wi th someone who hurts you emotionally and/or physically? 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 She also needs a facility where the procedure is being placed. Call-back Number: [phone] documented in this encounter Plan of Treatment Upcoming Encounters Date Type Department Care Team (Late st Contact Info) Description 03/31/2025 11:00 AM CDT Office Visit [facility] Gen Spec Surg [place] [address] [phone] Isis Fontana, JAYESH [address] [address] documented as of this encounter Visit Diagnoses Not on filedocumented in this encounter Additional Health Concerns Assessment Noted Time PHQ-9 Depression Total Score: 2 02/10/20 25 7:58 AM CDT documented as of this encounter Care Teams Staff Rn Relationship Specialty Start Date End Date Briana Dumas DO [address] [place] [phone] PCP - General Family Practice 07/21/21 documented as of this encounter
--- OUTSIDE RECORDS SUMMARY | 2025-03-28 23:09 | XMS_ITS | Encounter Summary ---
Author Organization [facility] Address [address] [place] [address] Care Team Providers Care Electoral Officer Name Role Phone Briana Dumas DO Primary Care Provider Reason for Visit * Reason Comments Patient Communication Encounter Details Date Type Department Care Team (Late st Contact Info) Description 02/09/2025 Telephone [facility] [place] [address] [place] [address] Briana Dumas DO [address] [place] [address] Patient Communication Social History Tobacco Use Types Packs/Day Years Used Date Smoking Tobacco: Every Day Cigarettes Passive Smoke Exposure: Current Smokeless Tobacco: Never Alcohol Use Standard Drinks/Week Comments No 0 (1 standard drink = 0.6 oz pur e alcohol) Feeling Safe Answer Date Recorded Are you in a relationship wi th someone who hurts you emotionally and/or physically? 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 Topic: CPA Information Request >> February 09, 2025 9:32 AM John Davila wrote: Caller is returning phone call from clinic. Caller Name: Ivy HIGGINS Patient/Caregiver Callback Number: [phone] (mobile) Clinic Did Not Leave Note In Chart Call Notes: Patient/Caller returning call, no note documented with instructions from clinic. Transferred to Backline/ACADEMIC VICE PRESIDENT Line and Shannon answered call. documented in this encounter Plan of Treatment Upcoming Encounters Date Type Department Care Team (Late st Contact Info) Description 03/31/2025 11:00 AM CDT Office Visit [facility] Gen Spec Surg [place] [address] [address] Isis Fontana, JAYESH [address] [place] [address] [place] [phone] documented as of this encounter Visit Diagnoses Not on filedocumented in this encounter Additional Health Concerns Assessment Noted Time PHQ-9 Depression Total Score: 2 02/10/20 25 7:58 AM CDT documented as of this encounter Care Teams Electoral Officer Relationship Specialty Start Date End Date Briana Dumas DO [address] [place] [address] PCP - General Family Practice 07/21/21 documented as of this encounter
--- OUTSIDE RECORDS SUMMARY | 2025-03-28 23:09 | XMS_ITS | Encounter Summary ---
Author Organization [facility] Address [address] [place] [address] Care Team Providers Care Ripening Room Hand Name Role Phone Briana Dumas Primary Care Provider Reason for Visit * Reason Onset Date Comments Medication Refill 03/26/2025 Encounter Details Date Type Department Care Team (Late st Contact Info) Description 03/26/2025 Refill [facility] Gen Spec Surg [place] [address] [place] [address] Avtar Kumar MD [facility] [address] [facility] [address] [place] [address] Diverticulitis of colon without hemorrhage; Post-operative pain Social History Tobacco Use Types Packs/Day Years Used Date Smoking Tobacco: Every Day Cigarettes Passive Smoke Exposure: Current Smokeless Tobacco: Never Alcohol Use Standard Drinks/Week Comments No 0 (1 standard drink = 0.6 oz pur e alcohol) Feeling Safe Answer Date Recorded Are you in a relationship wi th someone who hurts you emotionally and/or physically? 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 [place] [address] Isis Fontana NP [address] [place] [address] documented as of this encounter Visit Diagnoses Diagnosis Diverticulitis of colon without hemorrhage Diverticulitis of colon (without mention of hemorrhage) Post-operative pain Other acute postoperative pain documented in this encounter Additional Health Concerns Assessment Noted Time PHQ-9 Depression Total Score: 2 02/10/20 25 7:58 AM CDT documented as of this encounter Care Teams Ripening Room Hand Relationship Specialty Start Date End Date Briana Dumas DO [address] [place] [address] PCP - General Family Practice 07/21/21 documented as of this encounter
--- OUTSIDE RECORDS SUMMARY | 2025-03-28 23:09 | XMS_ITS | Patient Health Record ---
Author Organization [facility] Address [address] [place] [address] Care Team Providers Care Animal Sitter Name Role Phone Kimo MCCONNELL, Dodie Primary Care Provider Janneth Duron MD, Robinson Unavailable Unavailable Allergies Allergen (clinical drug ingredient) Drug/Non Drug Allergy documented on EMR Reaction Allergy Type Onset Date Status Keflex Unknown Drug Allergy Active Penicillin Unknown Drug Allergy Active Substance with sulfonamide structure and antibacterial mechanism of action (substance) Sulfa Antibiotics Unknown Drug Allergy Active Reason For Referral No Information Medications Medication SIG (Take, Route, Frequency, Duration) Notes Start Date End Date Status Depo-Provera Active Zithromax 5 day for bronchitis Unknown Chantix Unknown Humira 40 MG/0.4ML Inject one syringe subcutaneously once every week. for 28 Active Social History Tobacco Use: Social History Observation Description Date Details (start date - stop date) Former Smoker NA - NA Tobacco Use/Smoking Question Answer Notes Are you a: former smoker Problems Problem Type SNOMED Code ICD Code Onset Dates Problem Status W/U Status Risk Notes Problem Hidradenitis suppurativa (27000842) Hidradenitis suppurativa (L73.2) Active confirmed Continued Dr. Wilson plan of care, Patient is doing amazing on Humira with 99% of lesions resolved and minimal inflammation present ( 1 small and 1 moderate cyst present) Years of chronic HS has left scaring in axilla, breast, thighs and abdomen. Patient is very happy with results. 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) Inactive confirmed Problem Right flank pain (469463030) RIGHT FLANK PAIN (R10.9) Inactive confirmed Problem INJURY OF ANKLE, RIGHT, INITIAL ENCOUNTER (S99.911A) Inactive confirmed Plan Of Treatment Pending Test Test Name Order Date POC: Urine Test, HCG POC: Transvaginal Ultrasound 02/28/2021 POC: Transvaginal Ultrasound 03/06/2021 POC: Transvaginal Ultrasound 01/10/2021 INJECTION INTO SKIN LESIONS, 1 TO 7 - 11 900 08/01/2021 Venipuncture[i] 04/19/2021 Insurance Providers Payer Name Payer Address Payer Phone Subscriber Number Group Number Insured Name Patient Relationship to Insured Coverage Start Date Coverage End Date [facility] MEDICAID COMMUNITY PLAN [address] [place] [address] [id number] [facility] [employer] Self - patient is the insured [place] [employer] [address] [place] [address] [id number] [employer] Self - patient is the insured Medical (General) History Medical History History ICD Code Problems: CHEST PAIN, UNSPECIFIED TYPE, ProblemStatus: Active, INJURY OF ANKLE, RIGHT, INITIAL ENCOUNTE R, ProblemStatus: Active, Problems Reconciled, ProblemStatus: Acti ve, Surgical History Surgery Date(Month/Year) TL[facility]-BS 02/22/2021 Facial surgery Laparoscopic cholecystectomy delivery and tubal ligation Diagnostic Laparoscopy with appendectomy, Lysis of Adhesion, Incision and Drainage of right breast abscess, ProblemStatus: Active,
--- OUTSIDE RECORDS SUMMARY | 2025-03-28 23:09 | XMS_ITS | Encounter Summary ---
Author Organization [facility] Address 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 [facility] [address] [place] [address] Isis Fontana, JAYESH [address] [place] [address] [place] [address] documented as of this encounter Visit Diagnoses Not on filedocumented in this encounter Additional Health Concerns Assessment Noted Time PHQ-9 Depression Total Score: 1 11/05/19 24 9:58 AM MOLDER INFLATED BALL documented as of this encounter Care Teams Thermal Molder Relationship Specialty Start Date End Date Briana Dumas DO [address] [place] [address] PCP - General Family Practice 07/21/21 documented as of this encounter
--- OUTSIDE RECORDS SUMMARY | 2025-03-28 23:09 | XMS_ITS | Encounter Summary ---
Author Organization [facility] Address [address] [place] [address] Care Team Providers Care Boxcar Weigher Name Role Phone Briana Dumas Primary Care Provider [phone] Encounter Details Date Type Department Care Team (Late st Contact Info) Description 02/11/2025 Results Follow-Up 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 Gen Spec Surg [place] [facility] [address] [phone] Isis Fontana, SENIOR INTERNET SALES CONSULTANT [address] [facility] [address] [place] [address] documented as of this encounter Visit Diagnoses Not on filedocumented in this encounter Additional Health Concerns Assessment Noted Time PHQ-9 Depression Total Score: 2 02/10/20 25 7:58 AM CDT documented as of this encounter Care Teams Boxcar Weigher Relationship Specialty Start Date End Date Briana Dumas DO [address] [place] [phone] PCP - General Family Practice 07/21/21 documented as of this encounter
--- OUTSIDE RECORDS SUMMARY | 2025-03-28 23:09 | XMS_ITS | Encounter Summary ---
Author Organization [facility] Address [address] [place] [address] Care Team Providers Care Road Cutter Name Role Phone Briana Dumas Primary Care Provider Reason for Visit * Reason Onset Date Comments Question 03/23/2025 Encounter Details Date Type Department Care Team (Late st Contact Info) Description 03/23/2025 Telephone [facility] Gen Spec Surg [place] [facility] [address] 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 * Telephone Encounter - Leighann Shannon - 03/23/2025 8:40 AM CDT Ace was calling in regards to a fax we received to get medical records. He was calling to see how long it would take for them to received them. He said if you have any questions please call him [phone]. documented in this encounter Plan of Treatment Upcoming Encounters Date Type Department Care Team (Late st Contact Info) Description 03/31/2025 11:00 AM CDT Office Visit [facility] Gen Spec Surg [address] [phone] Isis Fontana, JAYESH [facility] [address] [address] documented as of this encounter Visit Diagnoses Not on filedocumented in this encounter Additional Health Concerns Assessment Noted Time PHQ-9 Depression Total Score: 2 02/10/20 25 7:58 AM CDT documented as of this encounter Care Teams Road Cutter Relationship Specialty Start Date End Date Briana Dumas DO [address] [place] [phone] PCP - General Family Practice 07/21/21 documented as of this encounter
--- OUTSIDE RECORDS SUMMARY | 2025-03-28 23:09 | XMS_ITS | Encounter Summary ---
Author Organization [facility] Address [address] [place] [address] Care Team Providers Care Tube Winder Hand Name Role Phone Briana Dumas Primary Care Provider Reason for Visit * Reason Onset Date Comments Question 03/22/2025 Encounter Details Date Type Department Care Team (Late st Contact Info) Description 03/22/2025 Telephone [facility] Gen Spec Surg [place] [facility] [address] [facility] [address] [place] [address] Avtar Kumar MD 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 Patient states that she has been feeling a tight sensation in her incision scar. She denies any fever, chills, nausea, or vomiting. I instructed patient to please let us know if this worsens. She voiced understanding. documented in this encounter Plan of Treatment Upcoming Encounters Date Type Department Care Team (Late st Contact Info) Description 03/31/2025 11:00 AM CDT Office Visit [facility] Gen Spec Surg [place] [address] [phone] Isis Fontnaa, JAYESH [address] [phone] documented as of this encounter Visit Diagnoses Not on filedocumented in this encounter Additional Health Concerns Assessment Noted Time PHQ-9 Depression Total Score: 2 02/10/20 25 7:58 AM CDT documented as of this encounter Care Teams Tube Winder Hand Relationship Specialty Start Date End Date Briana Dumas DO [address] [place] [address] PCP - General Family Practice 07/21/21 documented as of this encounter
--- OUTSIDE RECORDS SUMMARY | 2025-03-28 23:09 | XMS_ITS | Encounter Summary ---
Author Organization [facility] Address [address] [place] [address] Care Team Providers Care Customer Contact Sales Associate Name Role Phone Briana Dumas Primary Care Provider Reason for Visit * Reason Onset Date Comments Medication Refill 03/22/2025 Encounter Details Date Type Department Care Team (Late st Contact Info) Description 03/22/2025 Refill [facility] Gen Spec Surg [place] 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 [place] [address] Isis Fontana NP [address] [place] [address] documented as of this encounter Visit Diagnoses Diagnosis Diverticulitis of colon without hemorrhage Diverticulitis of colon (without mention of hemorrhage) Post-operative pain Other acute postoperative pain documented in this encounter Additional Health Concerns Assessment Noted Time PHQ-9 Depression Total Score: 2 02/10/20 25 7:58 AM CDT documented as of this encounter Care Teams Customer Contact Sales Associate Relationship Specialty Start Date End Date Briana Dumas DO [address] [place] [address] PCP - General Family Practice 07/21/21 documented as of this encounter
--- OUTSIDE RECORDS SUMMARY | 2025-03-28 23:09 | XMS_ITS | Clinical Summary ---
Author Organization [facility] Address [address] [place] [address] Phone Care Team Providers Care Customer Contact Specialist Name Role Phone Briana Dumas Primary Care Provider Allergies Active Allergy Reactions Criticality Noted Date Comments Cephalexin Rash Low 10/09/2011 Ketorolac Tromethamine Nausea and Vomiting Low 11/2012 Latex Rash Low 02/19/2025 Penicillin G Rash Low 10/09/2011 Sulfa (Sulfonamide Antibiotics) Rash Low 09/17 Tramadol Nausea and Vomiting Low 08/18/2013 Medications ibuprofen (MOTRIN) 800 mg tablet Take 1 Tablet (800 mg) by mouth every 8 hours as needed for Pain. 20 Tablet 0 021 Active ASCORBIC ACID, VITAMIN C, ORAL Take by mouth. Active CALCIUM CARBONATE-VITAM IN D3 ORAL Take by mouth. Acti ve ZINC GLUCONATE ORAL Take by mouth. Activ e adalimumab (Humira) 40 mg/0.8 mL Syringe Kit Inject 40 mg by subcutaneous injection every 7 days. Active albuterol sulfate HFA 90 mcg/actuation aerosol inhalerIndicati ons:Wheezing on both sides of chest Take 2 Puffs by inhalation every 6 hours as needed for Shortness of Breath. 8.5 Gram 3 023 Active hydroCHLOROthia zide 25 mg tabletIndicatio ns:Bilateral edema of lower extremity,Essen tial hypertension Take 0.5-1 Tablets (12.5-25 mg) by mouth daily. 30 Tablet 5 023 Active lisinopriL (PRINIVIL) 20 mg tabletIndicatio ns:Hypertension , essential Take 1 Tablet (20 mg) by mouth daily. 90 Tablet 3 023 Active citalopram (CeleXA) 10 mg tabletIndicatio ns:Mild episode of depression Take 1 Tablet (10 mg) by mouth daily. 30 Tablet 023 Active Additional Information Patient not taking.Reported on 02/19/2025 rimegepant (Nurtec ODT) 75 mg Tablet, Rapid DissolveIndicat ions:Chronic migraine with aura without status migrainosus, not intractable Take 1 Tablet (75 mg) by mouth daily. 9 Tablet 6 024 Active hyoscyamine 0.[address] 1 Tablet (0.125 mg) under tongue every 4 hours as needed for Other (See Comment) (abdominal pain). 30 Tablet 1 024 Active meloxicam (MOBIC) 15 mg tablet Take 1 Tablet (15 mg) by mouth daily. 30 Tablet 1 024 Active nystatin (MYCOSTATIN) 100,000 unit/gram CreamIndication s:Candidiasis of skin Apply to affected area 2 times daily. 30 Gram 1 024 Active ondansetron (ZOFRAN ODT) 4 mg Tablet, Rapid Dissolve Take 1 Tablet (4 mg) by mouth every 8 hours as needed for Nausea/Emesis. Dissolve tablet on top of tongue, then swallow with saliva. 30 Tablet 2 024 Active nicotine (NICODERM CQ) 21 mg/24 hr patchIndication s:Encounter for smoking cessation counseling Apply 1 Patch to skin as directed every 24 hours. 28 Patch 025 Active tirzepatide, weight loss, (Zepbound) 2.5 mg/0.5 mL Pen InjectorIndicat ions:Morbid obesity with BMI of 50.0-59.9, adult (CMS/HCC) Inject 2.5 mg by subcutaneous injection every 7 days. 6 mL 1 025 Active oxyCODONE-aceta minophen (PERCOCET) 7.5-325 mg TabletIndicatio ns:Abdominal pain, acute, left lower quadrant Take 1 Tablet by mouth every 8 hours as needed for Pain, Moderate. Max Daily Amount: 3 Tablets 20 Tablet Active metroNIDAZOLE (FLAGYL) 500 mg tablet Day before surgery, take 1 tablet by mouth at 1pm, 2pm, and 10pm. 3 Tablet Active neomycin (MYCIFRADIN) 500 mg tablet Day before surgery, take 2 tablets at 1pm, 2pm, and 10pm. 6 Tablet Active ondansetron (ZOFRAN ODT) 4 mg Tablet, Rapid Dissolve Take 1 Tablet (4 mg) by mouth every 8 hours as needed for Nausea/Emesis. Dissolve tablet on top of tongue, then swallow with saliva. 6 Tablet Active oxyCODONE-aceta minophen (Percocet) 5-325 mg tabletIndicatio ns:Diverticulit is of colon without hemorrhage,Post -operative pain Take 1 Tablet by mouth every 4 hours as needed for Pain, Moderate. Max Daily Amount: 6 Tablets 30 Tablet Active sodium, potassium and magnesium SULFATES (Suprep Bowel Prep Kit) 17.5-3.13-1.6 gram Recon Soln Follow directions from clinic. 354 mL 025 2024 Discontinued oxyCODONE-aceta minophen (Percocet) 5-325 mg tabletIndicatio ns:Diverticulit is of colon without hemorrhage Take 1 Tablet by mouth every 4 hours as needed for Pain, Moderate. Max Daily Amount: 6 Tablets 30 Tablet 5 1:21 PM CDT 2024 Discontinued(R eorder) oxyCODONE-aceta minophen (Percocet) 5-325 mg tabletIndicatio ns:Diverticulit is of colon without hemorrhage,Post -operative pain Take 1 Tablet by mouth every 4 hours as needed for Pain, Moderate. Max Daily Amount: 6 Tablets 30 Tablet 025 2024 Discontinued(R eorder) oxyCODONE-aceta minophen (Percocet) 5-325 mg tabletIndicatio ns:Diverticulit is of colon without hemorrhage,Post -operative pain Take 1 Tablet by mouth every 4 hours as needed for Pain, Moderate. Max Daily Amount: 6 Tablets 30 Tablet 025 2024 Discontinued(R eorder) Active Problems Problem Noted Date Diagnosed Date s/p lap sigmoid colectomy for chronic Diverticulitis 03/12/2025 Cigarette dependence 11/26/2023 Chronic migraine with aura w ithout status migrainosus, not intractable 11/05/2023 Morbid obesity with BMI of 50.0-59.9, adult 10/18 LBP (low back pain) 08/18/2013 Lumbar spondylosis 08/18/2013 Sprain and strain of back 08/18/2013 Supervision of high-risk of young rosalind igravida 10/09/2011 Essential hypertension 10/09/2011 Morbid obesity 10/09/2011 History of labor, current 09/17 Overview (01/12/2021): Admission exam: /-1 per Geoff Marlow MD at 10/09/2011; 11:10 AM Encounters Date Type Department Care Team Description [facility] [place] [address] [place] [address] [place] [phone] Avtar Kumar MD Diverticulitis of colon without hemorrhage; Post-operative pain 03/23/2025 Telephone [facility] Spec Surg [place] [address] [place] [address] [place] [phone] Avtar Kumar MD Question 03/22/20[facility] [place] [address] [place], [place] [address] [address] [place] [phone] Avtar Kumar MD Diverticulitis of colon without hemorrhage; Post-operative pain 03/22/2025 Telephone [facility] Gen Spec Surg [place] [address] [place] [address] [place] [phone] Avtar Kumar MD Question 03/18/2025 [facility] [place] [address] [place], [place] [address] [address] [place] [phone] Ben Hart MD Post-operative pain (Primary Dx); Diverticulitis of colon without hemorrhage 03/18/2025 Refill [facility] Gen Spec Surg [place] [address] [phone] Avtar Kumar MD Post-operative pain (Primary Dx); Diverticulitis of colon without hemorrhage 03/16/2025 External Device Data STL ABSTRACTION Provider, Abstract 03/16/2025 External Device Data STL ABSTRACTION Provider, Abstract 03/12/2025 7:20 AM CDT - 03/12/2025 10:[address] [facility] Operating Room [address] [place] [phone] Avtar Kumar MD SIGMOID COLECTOMY HAND ASSISTED LAPAROSCOPIC 03/12/2025 7:01 AM CDT An[address] Event [facility] Operating Room [address] [place] [address] Geoff Luna MD Sweaney, Deanna S, ELLA 03/12/2025 5:09 AM CDT - 03/14/2025 4:12 PM CDT Hospital Encounter [facility] 3B Surgical [address] [place] [phone] Avtar Kumar MD Diverticulitis Discharge Disposition: Home or Self Care 03/10/2025 Telephone [facility] Gen Spec Surg [address] [phone] Avtar Kumar MD Surgery (Arrival time) 03/10/2025 [facility] [address] [place] [phone] Briana Dumas DO 03/09/2025 External Device Data STL ABSTRACTION Provider, Abstract 03/09/2025 External Device Data STL ABSTRACTION Provider, Abstract 03/09/[address] [facility] 3A Surgical [address] [place] [phone] Avtar Kumar MD Nurse Navigation 02/22/2025 Telephone [facility] Gen Spec Surg [place] [address] [place] [address] [address] [place] [phone] Avtar Kumar MD Pt Stacy ; hospitality room 02/19/2025 12:00 PM CDT - 02/19/2025 11:59 PM CDT Hospital Encounter [facility] Pre Admission Testing Center [address] [place] [phone] Avtar Kumar MD Discharge Disposition: Home or Self Care 02/19/2025 11:30 AM CDT Office Visit [facility] Gen Spec Surg [place] [address] [place] [address] [address] [place] [phone] Avtar Kumar MD Diverticulitis of colon without hemorrhage (Primary Dx) 02/19/2025 Telephone [facility] Gen Spec Surg [place] [address] [place] [phone] Avtar Kumar MD Swenson 02/19/2025 Refill [facility] [address] [place] [phone] Briana Dumas, DO Abdominal pain, acute, left lower quadrant 02/19/2025 Chart Note [facility] Gen Spec Surg [place] [address] [place] [phone] Kaila Jean, FLOORING SALESPERSON Surgery 02/19/2025 Orders Only [facility] Gen Spec Surg [place] [address] [place] [phone] Avtar Kumar MD 02/16/2025 External Device Data STL ABSTRACTION Provider, Abstract 02/16/[address] [facility] HIM [address] [place] [phone] Provider, Abstract 02/11/2025 Results Follow-Up [facility] [address] [place] [address] December, CLINICAL APPLICATION SPECIALIST POC URINALYSIS DIPSTICK AUTOMATED, URINE CULTURE, TSH, Additional followed-up results: 3 02/09/2025 8:00 AM CDT Office Visit [facility] [address] [place] [address] December, CLINICAL APPLICATION SPECIALIST Urinary frequency (Primary Dx); Diverticulitis; Morbid obesity with BMI of 50.0-59.9, adult ([facility]) 02/09/2025 External Device Data STL ABSTRACTION Provider, Abstract 02/09/2025 External Device Data STL ABSTRACTION Provider, Abstract 02/09/2025 External Device Data STL ABSTRACTION Provider, Abstract 02/09/2025 Telephone [facility] [address] [place] [address] Briana Dumas, DO Patient Communication 02/09/2025 Orders Only [facility] [address] [place] [address] Briana Dumas, DO Abdominal pain, acute, left lower quadrant 02/02/2025 Refill [facility] [address] [place] [address] Briana Dumas, DO Abdominal pain, acute, left lower quadrant 01/25/2025 Refill [facility] [address] [place] [address] Briana Dumas, DO Abdominal pain, acute, left lower quadrant 01/22/2025 Results Follow-Up [facility] [address] [place] [address] December, CLINICAL APPLICATION SPECIALIST LIPID PANEL, COMPREHENSIVE METABOLIC PANEL, TSH, CBC WITH DIFFERENTIAL 01/20/2025 Telephone [facility] [address] [place] [address] Briana Dumas DO Provider Call 01/19/2025 External Device Data STL ABSTRACTION Provider, Abstract 01/19/2025 External Device Data STL ABSTRACTION Provider, Abstract 01/19/2025 External Device Data STL ABSTRACTION Provider, Abstract 01/18/2025 2:45 PM CDT Clinical Support [facility] [address] [place] [address] Morbid obesity with BMI of 50.0-59.9, adult ([facility]); Acute diverticulitis 01/18/2025 Orders Only Initial Department [address] [facility] [address] BLAIR: [place] [address] Provider, Historical 01/18/2025 Refill [facility] [address] [place] [address] Briana Dumas DO Abdominal pain, acute, left lower quadrant 01/12/2025 7:14 PM CDT - 01/12/2025 10:31 PM CDT Emergency [facility] Emergency Medicine [address] [place] [phone] Joseph Mcdowell DO Diverticulitis (Primary Dx) Discharge Disposition: Home or Self Care 01/12/2025 Travel 01/11/2025 12:00 PM CDT Office Visit [facility] [address] [place] [address] December, CLINICAL APPLICATION SPECIALIST Acute diverticulitis (Primary Dx); Declined influenza vaccine; Morbid obesity with BMI of 50.0-59.9, adult ([facility]) 01/11/2025 Orders Only [facility] [address] [place] [address] Briana Dumas DO Abdominal pain, acute, left lower quadrant 01/04/2025 Refill [facility] [address] [place] [address] Johndecember, CLINICAL APPLICATION SPECIALIST Encounter for smoking cessation counseling 12/31/2024 Telephone [facility] [address] [place] [address] Briana Dumas, DO Clinical Consult Before Scheduling 12/29/2024 External Device Data STL ABSTRACTION Provider, Abstract from Last 3 Months Immunizations Immunization Administration Dates Next Due INFLUENZA VACCINE QUADRIVALENT 6 MOS UP PF IM Family History Medical History Relation Name Comments Asthma Father Robinson Depression Father Robinson Diabetes Father Robinson High Cholesterol Father Robinson Hypertension Father Robinson Liver Disease Father Robinson Asthma Mother Vira Colon Cancer Mother Vira Depression Mother Vira Diabetes Mother Vira Heart Disease Mother Vira High Cholesterol Mother Vira Hypertension Mother Vira Stroke Mother Vira Breast Cancer Neg Hx Ovarian Cancer Neg Hx Relation Name Status Comments Father Robinson Alive Mother Vira Alive Social History Tobacco Use Types Packs/Day Years Used Date Smoking Tobacco: Every Day Cigarettes Passive Smoke Exposure: Current Smokeless Tobacco: Never Tobacco Cessation:Ready to Q uit: Not Asked; Counseling Given: No Alcohol Use Standard Drinks/Week Comments No 0 [...] on file 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 Gender Identity Not on file Sexual Orientation Not on file Last Filed Vital Signs Vital Sign Reading Time Taken Comments Blood Pressure 151/89 03/14/2025 8:12 AM CDT Pulse 80 03/14/2025 8:12 AM CDT Temperature 36.2 C (97.1 F) 03/14/2025 8:12 AM CDT Respiratory Rate 16 03/14/2025 8:12 AM CDT Oxygen Saturation 92% 03/14/2025 8:12 AM CDT Inhaled Oxygen Concentration - - Weight 148.1 kg (326 lb 8 oz) 03/12/2025 5:21 AM CDT Height 168.9 cm (5' 6.5 ) 03/12/2025 5:21 AM CDT Body Mass Index 51.91 03/12/2025 5:21 AM CDT Plan of Treatment Upcoming Encounters Date Type Department Care Team (Late st Contact Info) Description 03/31/2025 11:00 AM CDT Office Visit [facility] Gen Spec Surg [place] [address] [place] [address] [place] [address] Isis Fontana NP [address] [place] [address] [place] [address] Health Maintenance Due Date Last Done Comments HEPATITIS B VACCINES (1 of 3 - 19+ 3-dose series) 2007 Preventative Visit-Managed Medicaid 2007 INFLUENZA VACCINE (#1) 2025 , 07/21/2021, 10/16/2015 Pre-Diabetes and Diabetes Screening 08/08/2025 08/08/2022 DTAP/TDAP/TD VACCINES (2 - T d or Tdap) 10/16/2025 10/16/2015 HPV VACCINES Aged Out No longer eligi ble based on patient's age to complete this topic Procedures Procedure Name Priority Date/Time Associated Diagnosis Comments TELEMETRY REPORT 03/15/2025 3:52 AM CDT BASIC METABOLIC PANEL Routine 03/14/2025 4:28 AM CDT CBC WITH DIFFERENTIAL Routine 03/14/2025 4:28 AM CDT BASIC METABOLIC PANEL Routine 03/13/2025 4:27 AM CDT CBC WITH DIFFERENTIAL Routine 03/13/2025 4:27 AM CDT POC GLUCOSE Routine 03/12/2025 9:39 AM CDT PATHOLOGY Pathology 03/12/2025 8:43 AM CDT Diverticulitis of colon without hemorrhage NE ANESTHESIA BLOCK PB PLACEHOLDER CHARGE Routine 03/12/2025 8:01 AM CDT NE LAPS MOBLJ SPLENIC FLXR PFRMD W/PRTL COLECTOMY 03/12/2025 7:20 AM CDT Diverticulitis of colon without hemorrhage NE LAPS COLECTOMY PRTL W/END CLST & CLSR DSTL SGM 03/12/2025 7:20 AM CDT Diverticulitis of colon without hemorrhage NE LAPS COLECTOMY PRTL W/COLOPXTSTMY LW ANAST 03/12/2025 7:20 AM CDT Diverticulitis of colon without hemorrhage NE LAPAROSCOPY COLECTOMY PARTIAL W/ANASTOMOSIS 03/12/2025 7:20 AM CDT Diverticulitis of colon without hemorrhage VERIFICATION BLOOD GROUP Stat 02/19/2025 1:06 PM CDT TYPE AND SCREEN Routine 02/19/2025 12:20 PM CDT Diverticulitis of colon without hemorrhage COMPREHENSIVE METABOLIC PANEL Routine 02/09/2025 8:58 AM CDT Morbid obesity with BMI of 50.0-59.9, adult (CMS/HCC) CBC WITH DIFFERENTIAL Routine 02/09/2025 8:58 AM CDT Morbid obesity with BMI of 50.0-59.9, adult (CMS/HCC) LIPID PANEL Routine 02/09/2025 8:58 AM CDT Morbid obesity with BMI of 50.0-59.9, adult (CMS/HCC) TSH Routine 02/09/2025 8:58 AM CDT Morbid obesity with BMI of 50.0-59.9, adult (CMS/HCC) URINE CULTURE Routine 02/09/2025 8:39 AM CDT Urinary frequency POC URINALYSIS DIPSTICK AUTOMATED Routine 02/09/2025 8:28 AM CDT Urinary frequency TEST IN QUESTION Routine 01/18/2025 2:40 PM CDT CBC WITH DIFFERENTIAL Routine 01/18/2025 2:40 PM CDT TSH Routine 01/18/2025 2:40 PM CDT COMPREHENSIVE METABOLIC PANEL Routine 01/18/2025 2:40 PM CDT LIPID PANEL Routine 01/18/2025 2:40 PM CDT URINALYSIS MICROSCOPY ONLY Stat 01/12/2025 8:39 PM CDT HCG QUALITATIVE, URINE Stat 8:39 PM CDT DRUG SCREEN, URINE Stat 01/12/2025 8: 39 PM CDT URINALYSIS W/REFLEX MICROSCOPIC Stat 01/12/2025 8:[address] ABDOMEN PELVIS W CONTRAST Stat 01/12/2025 8:29 PM CDT C-REACTIVE PROTEIN Stat 01/12/2025 7: 23 PM CDT LACTIC ACID Stat 01/12/2025 7:23 PM CDT LIPASE Stat 01/12/2025 7:23 PM CDT COMPREHENSIVE METABOLIC PANEL Stat 01/12/2025 7:23 PM CDT CBC WITH DIFFERENTIAL Stat 01/12/2025 7:23 PM CDT QUEST TEST IN QUESTION (ACTION NEEDED) (NO MY CHART) Routine 01/11/2025 12:00 AM CDT HEMOGLOBIN A1C Routine 08/08/2022 9:49 AM 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 WBC 16.6(H) 4.5 - 11.0 K/uL 03/14/2025 5:06 AM [facility] [employer] [facility] RBC 4.44 4.20 - 5.40 M/uL 03/14/2025 5:06 AM [facility] [employer] [facility] HEMOGLOBIN 13.9 12.0 - 16.0 g/dL 03/14/2025 5:06 AM [facility] [employer] [facility] HEMATOCRIT 42.0 36.0 - 46.0 % 03/14/2025 5:06 AM [facility] [employer] [facility] MCV 94.6 84.0 - 103.0 fL 03/14/2025 5:06 AM [facility] [employer] [facility] MCH 31.3 27.0 - 34.0 pg 03/14/2025 5:06 AM [facility] [employer] [facility] MCHC 33.1 30.0 - 35.0 g/dL 03/14/2025 5:06 AM [facility] [employer] [facility] PLATELETS 161 140 - 440 K/uL 03/14/2025 5:06 AM [facility] [employer] [facility] MPV 10.6 8.9 - 12.8 fL 03/14/2025 5:06 AM [facility] [employer] [facility] RDW 12.9 11.0 - 14.5 % 03/14/2025 5:06 AM [facility] [employer] [facility] RDW-STDEV 45.1 37.0 - 54.0 fL 03/14/2025 5:06 AM [facility] [employer] [facility] NEUTROPHILS 71 42 - 75 % 03/14/2025 5:06 AM [facility] [employer] [facility] LYMPHOCYTES 22(L) 24 - 44 % 03/14/2025 5:06 AM [facility] [employer] [facility] MONOCYTES 6 2 - 10 % 03/14/2025 5:06 AM CDT [facility] EOSINOPHILS 1 0 - 7 % 03/14/2025 5:06 AM CDT [facility] BASOPHILS 0 0 - 1 % 03/14/2025 5:06 AM CDT [facility] IMMATURE GRANULOCYTES 1 0 - 2 % 03/14/2025 5:06 AM CDT [facility] NEUTROPHIL ABSOLUTE 11.75(H) 2.00 - 8.00 K/uL 03/14/2025 5:06 AM CDT [facility] LYMPHOCYTE ABSOLUTE 3.60 1.20 - 4.00 K/uL 03/14/2025 5:06 AM CDT [facility] MONOCYTE ABSOLUTE 0.93(H) 0.10 - 0.60 K/uL 03/14/2025 5:06 AM CDT [facility] EOSINOPHIL ABSOLUTE 0.19 0.00 - 0.70 K/uL 03/14/2025 5:06 AM CDT [facility] BASOPHILS ABSOLUTE 0.04 0.00 - 0.20 K/uL 03/14/2025 5:06 AM CDT [facility] IMMATURE GRANULOCYTES ABSOLUTE 0.08 0.00 - 0.10 K/uL 03/14/2025 5:06 AM T [facility] SMEAR REVIEWED: NA - Not Applicable 03/14/2025 5:06 AM [facility] Blood Venipuncture / Unknown 03/14/2025 4:28 AM CDT 03/14/2025 4:58 AM CDT us Avtar Kumar MD HEMATOLOGY ORDERABLES Final Res ult [facility] CLIA # [id number] [address] [place] [address] [place] [address] * (ABNORMAL) BASIC METABOLIC PANEL (03/14/2025 4:28 AM CDT) Only the most recent of2 resultswithin the time period is included. SODIUM 140 136 - 145 mmol/L 03/14/2025 5:38 AM CDT [facility] POTASSIUM 3.7 3.5 - 5.1 mmol/L 03/14/2025 5:38 AM CDT [facility] CHLORIDE 108(H) 98 - 107 mmol/L 03/14/2025 5:38 AM CDT [facility] CO2 23 22 - 29 mmol/L 03/14/2025 5:38 AM CDT [facility] CALCIUM 8.5(L) 8.6 - 10.0 mg/dL 03/14/2025 5:38 AM CDT [facility] BUN 7 6 - 20 mg/dL 03/14/2025 5:38 AM T [facility] CREATININE 0.67 0.51 - 0.95 mg/dL 03/14/2025 5:38 AM CDT [facility] GLUCOSE 90 74 - 99 mg/dL 03/14/2025 5:38 AM T [facility] GFR >60 >=60 mL/min/1.7 3 sq meter 03/14/2025 5:38 AM T [facility] Comment:eGFR calculated with 2020 CKD-EPI equation. Vegetarian diet, extremely high or low muscle mass, and may affect results. Cystatin C with Glomerular Filtration Rate is a suitable alternative for these patients. ANION GAP 9 9 - 20 mmol/L 03/14/2025 5:38 AM T [facility] Blood Venipuncture / Unknown 03/14/2025 4:28 AM CDT 03/14/2025 4:59 AM CDT us Avtar Kumar MD CHEMISTRY ORDERABLES Final Resu lt [facility] CLIA # [id number] [address] [place] [id number] * (ABNORMAL) POC GLUCOSE (03/12/2025 9:39 AM CDT) GLUCOSE POC 139(H) 74 - 99 mg/dL 03/12/2025 9:39 AM CDT [facility] SPECIMEN SOURCE, GLUCOSE POC Capillary 03/12/2025 9:39 AM CDT [facility] Blood, whole 03/12/2025 9:39 AM CDT 03/12/2025 9:48 AM CDT us Avtar Kumar MD POINT OF CARE TESTING Final Res ult [facility] # [id number] [address] [place] [id number] * PATHOLOGY (03/12/2025 8:43 AM CDT) CASE REPORT Surgical Pathology Report Case: [id number] Authorizing Provider: Avtar Kumar MD Collected: 03/12/2025 08:43 AM Ordering Location: [facility] Received: 03/12/2025 09:39 AM Operating Room Pathologist: Cosmo Arzola MD Specimen: Colon, sigmoid 3:41 PM CDT [facility] FINAL DIAGNOSIS A. Sigmoid colon, segmental resection - Diverticular disease - Adenomatous polyp - Viable resection margins Cosmo Arzola MD [id number] 3:41 PM CDT [facility] at 1541 CDT GROSS DESCRIPTION A. Received in a container of formalin labeled GISELA -sigmoid colon is a 22 cm in length by 2.9 cm in diameter segment of sigmoid colon/proximal rectum. At the rectosigmoid junction is a 5 x 4.5 cm area of hemorrhagic adhesions. The remaining serosa is jewell-pink, smooth and glistening. Opening reveals a 0.6 x 0.5 x 0.3 cm red-brown pedunculated polyp with no obvious underlying invasion. The remaining mucosa is jewell-pink, smooth and glistening with grossly unremarkable mucosal folds. The mucosa is serially sectioned to reveal a single intact diverticulum, 0.5 cm in greatest dimension. The bowel wall is diffusely thickened and irregular with no obvious abscess, perforation or inflammatory debris identified. [employer] sections are submitted as follows: A1-proximal margin, en face A2-distal margin, en face A3-pedunculated polyp A4-intact diverticulum [id number] bowel wall with serosal adhesions, Isis Lobo 5 3:41 PM CDT [facility] OPERATIVE PROCEDURE 1: SIGMOID COLECTOMY HAND ASSISTED LAPAROSCOPIC 2: SPLENIC FLEXURE MOBILIZATION LAPAROSCOPIC 5 3:41 PM CDT [facility] CLINICAL INFORMATION A [id number] Diverticulitis of colon without hemorrhage K57.32-Diverticulitis of colon without hemorrhage 5 3:41 PM CDT [facility] COMMENT The [employer]D [employer] voice-activated dictation system may have been used in the creation of this report. Inherent to this system is the possibility of errors in syntax, grammar, punctuation, or other areas that could impact interpretation. If there are interpretive questions about the report, please contact the performing pathologist. Unless gross only is specified in the diagnosis, the microscopic examination substantiates the above cited diagnosis. The performance characteristics of all immunohistochemical stains cited in this report (if any) were determined by the [facility] of [facility] in compliance with CLIA'88 regulations. Some of these tests rely on the use of analyte specific reagents and are subject to specific labeling requirements by the FDA. All controls show appropriate reactivity. This testing was developed by the [facility] of [facility]. It has not been cleared or approved by the FDA. The FDA has determined that such clearance or approval is not necessary. 5 3:41 PM CDT [facility] Tissue SIGMOID COLON STRUCTURE / Unknown Collection / Unknown 03/12/2025 8:43 AM CDT 03/12/2025 9:39 AM CDT Comment:[id number] us Avtar Kumar MD PATHOLOGY/CYTOLOGY ORDERABLES F inal Result [facility] CLIA # [id number] [address] [place] [address] [place] [address] * NE ANESTHESIA BLOCK PB PLACEHOLDER CHARGE (03/12/2025 8:01 AM CDT) Narrative Geoff Luna MD - 03/12/2025 8:01 AM CDT Geoff Luna MD 03/12/2025 8:02 AM Spinal Block Patient location during procedure: OR Reason for block: at surgeon's request and post-op pain management Staffing Authorized by: Geoff Luna MD Performed by: Geoff Luna MD Preanesthetic Checklist Completed: patient identified, IV checked, site marked, risks and benefits discussed, surgical consent, monitors and equipment checked, pre-op evaluation and timeout performed Spinal Hand hygiene performed prior to procedure Patient was prepped and draped in usual sterile fashion Time out performed Mask worn Patient position: Sitting Prep: ChloraPrep Local Anesthetic: Lidocaine 1% without epinephrine Patient monitoring: Continuous pulse oximetry, Heart rate and Non-invasive blood pressure Approach: Midline Location: L3-4 Injection Technique: Single-shot [place] Identification: palpation technique Number of Attempts: 1 Spinal Needle Needle type: Pencil-tip Needle gauge: 25 G Needle length: 10 cmCSF visualized Assessment Sensory Level: T5 No paresthesia Events: easy and well tolerated Outcome: Complete Additional Notes Attx1. No complications. 150mc Duramorph us Geoff Luna MD PROCEDURE/MINOR SURGICAL ORDE RABLES Final Result * VERIFICATION BLOOD GROUP (02/19/2025 1:06 PM CDT) ABO GROUP A 02/19/2025 2:55 PM CDT [facility] [place] RH (D) TYPE Negative 02/19/2025 2:55 PM CDT [facility] [place] Blood BLOOD SPECIMEN / Unknown Venipuncture / Unknown 02/19/2025 1:06 PM CDT 02/19/2025 2:14 PM CDT Avtar Kumar MD BLOOD BANK ORDERABLES Final Res ult [facility] [place] CLIA#[id number] [address] [place] [address], * TYPE AND SCREEN (02/19/2025 12:20 PM CDT) ABO GROUP A 02/19/2025 3:59 PM CDT [facility] [place] RH (D) TYPE Negative 02/19/2025 3:59 PM CDT [facility] [place] ANTIBODY SCREEN Negative 02/19/2025 3:59 PM CDT [facility] [place] Blood Venipuncture / Unknown 02/19/2025 12:20 PM CDT 02/19/2025 2:14 PM CDT Avtar Kumar MD BLOOD BANK ORDERABLES Edited Re sult - Final Performing Organization Address [facility] Co de Phone Number [facility] [place] CLIA#[id number] [address] [place] [address], * TSH (02/09/2025 8:58 AM CDT) Only the most recent of2 resultswithin the time period is included. Pathologist [facility] TSH 1.41 mIU/L [facility] Comment: Reference Range > or = 20 Years 0.40-4.50 Ranges First trimester 0.26-2.66 Second trimester 0.55-2.73 Third trimester 0.43-2.91 FASTING:UNKNOWN FASTING: UNKNOWN Test Performed at: [facility] [address] [place] [address] Natasha Bains MD Blood 02/09/2025 8:58 AM CDT 02/09/2025 8:58 AM CDT December John CLINICAL APPLICATION SPECIALIST CHEMISTRY ORDERABLES Final Resul t Performing Organization Address City/[facility] Co de Phone Number [facility] [phone] [facility] [address] [place] [address] * (ABNORMAL) LIPID PANEL (02/09/2025 8:58 AM CDT) Only the most recent of2 resultswithin the time period is included. CHOLESTEROL 163 <200 mg/dL [facility] HDL 37(L) > OR = 50 mg/dL [facility] TRIGLYCERIDE 125 <150 mg/dL [facility] LDL CALCULATED 103(H) mg/dL (calc) [facility] Comment: Reference range: <100 Desirable range <100 mg/dL for primary prevention; <70 mg/dL for patients with CHD or diabetic patients with > or = 2 CHD risk factors. LDL-C is now calculated using the Madyson calculation, which is a validated novel method providing better accuracy than the Friedewald equation in the estimation of LDL-C. David SS et al. VEL. 2013;310(19): 1294-9252 (http://education.UNITY Mobile/faq/ITX997) CHOL/HDL RATIO 4.4 <5.0 (calc) [facility] NON-HDL CHOLESTEROL 126 <130 mg/dL (calc) [facility] Comment: For patients with diabetes plus 1 major ASCVD risk factor, treating to a non-HDL-C goal of <100 mg/dL (LDL-C of <70 mg/dL) is considered a therapeutic option. Test Performed at: [facility] [address] [place] [address] Natasha Bains MD Blood 02/09/2025 8:58 AM CDT 02/09/2025 8:58 AM CDT December [facility] CHEMISTRY ORDERABLES Final Resul t [facility] [phone] [facility] [address] [place] [address] * COMPREHENSIVE METABOLIC PANEL (02/09/2025 8:58 AM CDT) Only the most recent of3 resultswithin the time period is included. GLUCOSE 65 65 - 99 mg/dL [facility] Comment: Fasting reference interval BUN 12 7 - 25 mg/dL [facility] CREATININE 0.79 0.50 - 0.97 mg/dL [facility] GFR 99 > OR = 60 mL/min/1. 73m2 [facility] BUN/CREAT RATIO SEE NOTE: 6 - 22 (calc) [facility] Comment: Not Reported: BUN and Creatinine are within reference range. SODIUM 140 135 - 146 mmol/L [facility] POTASSIUM 4.1 3.5 - 5.3 mmol/L [facility] CHLORIDE 102 98 - 110 mmol/L [facility] CO2 27 20 - 32 mmol/L [facility] CALCIUM 9.1 8.6 - 10.2 mg/dL [facility] TOTAL PROTEIN 7.2 6.1 - 8.1 g/dL [facility] ALBUMIN 3.9 3.6 - 5.1 g/dL [facility] GLOBULIN 3.3 1.9 - 3.7 g/dL (calc) [facility] ALBUMIN/GLOBULIN RATIO 1.2 1.0 - 2.5 (calc) [facility] BILIRUBIN TOTAL 0.4 0.2 - 1.2 mg/dL [facility] ALKALINE PHOSPHATASE 85 31 - 125 U/L [facility] AST 16 10 - 30 U/L [facility] ALT 19 6 - 29 U/L [facility] Comment: FASTING:UNKNOWN FASTING: UNKNOWN Test Performed at: [facility] [address] [facility] [place] [address] Natasha Bains MD Blood 02/09/2025 8:58 AM CDT 02/09/2025 8:58 AM CDT December CLINICAL APPLICATION SPECIALIST CHEMISTRY ORDERABLES Final Resul t [facility] [phone] [facility] [address] [place] [address] * URINE CULTURE (02/09/2025 8:39 AM CDT) URINE CULTURE SEE NOTE [facility] Comment: CULTURE, URINE, ROUTINE Micro Number: [id number] Test Status: Final Specimen Source: Urine, clean catch Specimen Quality: Adequate Result: Mixed genital ronal isolated. These superficial bacteria are not indicative of a urinary tract infection. No further organism identification is warranted on this specimen. If clinically indicated, recollect clean-catch, mid-stream urine and transfer immediately to Urine Culture Transport Tube. Test Performed at: [facility] [address] [place] [address] Natasha Bains MD Urine URINE SPECIMEN OBTAINED BY CLEAN CATCH PROCEDURE / Unknown 02/09/2025 8:39 AM CDT 02/10/2025 3:31 AM CDT December [facility] MICROBIOLOGY - GENERAL ORDERABLE S Final Result [facility] [phone] [id number] [place] [address] * (ABNORMAL) POC URINALYSIS DIPSTICK AUTOMATED (02/09/2025 8:28 AM CDT) COLOR UA POC Yellow Pale to Dark Yellow [facility] CLARITY UA POC Clear Clear, Other [facility] GLUCOSE UA POC Negative Negative, Normal [facility] BILIRUBIN UA POC Negative Negative [facility] KETONES UA POC Negative Negative [facility] SPECIFIC GRAVITY UA POC 1.020 1.000 - 1.030 [facility] BLOOD UA POC 2+(A) Negative [facility] C [facility] PH UA POC 7.0 5.0 - 8.0 [facility] PROTEIN UA POC Negative Negative [facility] UROBILINOGEN UA POC 0.2 <2.0 mg/dL [facility] NITRITE UA POC Negative Negative [facility] LEUKOCYTE ESTERASE UA POC Negative Negative [facility] KIT LOT NUMBER POC [phone] [facility] KIT EXP DATE POC [id number] [facility] Urine 02/09/2025 8:28 AM CDT december [facility] POINT OF CARE TESTING Final Resu lt [facility] CLIA# [id number] [address] [place] [address] * TEST IN QUESTION (01/18/2025 2:40 PM CDT) COMMENT [facility] Comment: Identification of test requisition and/or specimen(s) was questionable. The below named individual provided this revised patient identification. CONTACT DR JOHN [facility] TESTS AFFECTED ALL TESTS [facility] Comment: FASTING: UNKNOWN Test Performed at: [facility] [address] [facility] [place] [address] Natasha Bains MD 01/18/2025 2:40 PM CDT 01/21/2025 2:20 PM CDT december [facility] CHEMISTRY ORDERABLES Final Resul t [facility] [phone] [facility] [address] [place] [address] * URINALYSIS MICROSCOPY ONLY (01/12/2025 8:39 PM CDT) WBC UA 0-2 0 - 2 /hpf 01/12/2025 8:56 PM CDT [facility] RBC UA 0-2 0 - 2 /hpf 01/12/2025 8:56 PM CDT [facility] BACTERIA UA Negative Negative /hpf 01/12/2025 8:56 PM CDT [facility] EPITHELIAL CELLS, URINE 0-5 0 - 5 /hpf 01/12/2025 8:56 PM CDT [facility] Urine URINE SPECIMEN OBTAINED BY CLEAN CATCH PROCEDURE / Unknown Collection / Unknown 01/12/2025 8:39 PM CDT 01/12/2025 8:48 PM CDT us Joseph Mcdowell DO URINE ORDERABLES Final Result [facility] CLIA # [id number] [address] [place] [address] * (ABNORMAL) DRUG SCREEN, URINE (01/12/2025 8:39 PM CDT) CANNABINOIDS QUAL, URINE Presumptive Positive(A) Negative 01/12/2025 9:08 PM CDT [facility] PCP QUAL, URINE Negative Negative 9:08 PM CDT [facility] COCAINE QUAL URINE Negative Negative 2024 9:08 PM CDT [facility] METHAMPHETAMINE QUAL, URINE Negative Negative 01/12/2025 9:08 PM CDT [facility] OPIATE QUAL, URINE Negative Negative 2024 9:08 PM CDT [facility] AMPHETAMINE QUAL, URINE Negative Negative 01/12/2025 9:08 PM CDT [facility] BENZODIAZEPINE QUAL, URINE Negative Negative 01/12/2025 9:08 PM CDT [facility] TRICYCLICS QUAL, URINE Negative Negative 01/12/2025 9:08 PM CDT [facility] METHADONE QUAL, URINE Negative Negative 01/12/2025 9:08 PM CDT [facility] BARBITURATE QUAL, URINE Negative Negative 01/12/2025 9:08 PM CDT [facility] OXYCODONE QUAL, URINE Presumptive Positive(A) Negative 01/12/2025 9:08 PM CDT [facility] Urine URINE SPECIMEN OBTAINED BY CLEAN CATCH PROCEDURE / Unknown Collection / Unknown 01/12/2025 8:39 PM CDT 01/12/2025 8:48 PM CDT Narrative [facility] - 01/12/2025 9:08 PM CDT This test is a qualitative screen. The presumptive positive results should not be used for legal purposes. If confirmation of results is desired, the lab must be contacted without delay. Drug Screening Threshold Amphetamines 500 ng/mL Barbiturates 200 ng/mL Benzodiazepines 150 ng/mL Cocaine Metabolites 150 ng/mL Methamphetamine 500 ng/mL Methadone 200 ng/mL Opiates 100 ng/mL Oxycodone 100 ng/mL Phencyclidine 25 ng/mL THC Cannabinoids 50 ng/mL Tricyclic Antidepressants 300 ng/mL us Joseph Mcdowell DO URINE ORDERABLES Final Result [facility] CLIA # [id number] [address] [place] [address] * (ABNORMAL) URINALYSIS WITH REFLEX MICROSCOPIC (01/12/2025 8:39 PM CDT) COLOR UA Yellow Pale to Dark Yellow 01/12/2025 8:56 PM CDT [facility] CLARITY UA Clear Clear 01/12/2025 8:56 PM CDT [facility] SPECIFIC GRAVITY UA 1.010 1.003 - 1.035 01/12/2025 8:56 PM T [facility] PH UA 6.0 5.0 - 8.0 01/12/2025 8:56 PM CDT [facility] LEUKOCYTE ESTERASE UA Negative Negative 01/12/2025 8:56 PM CDT [facility] NITRITE UA Negative Negative 01/12/2025 8:56 PM CDT [facility] PROTEIN UA Negative Negative 01/12/2025 8:56 PM CDT [facility] GLUCOSE UA Negative Negative 01/12/2025 8:56 PM CDT [facility] KETONES UA Negative Negative 01/12/2025 8:56 PM CDT [facility] UROBILINOGEN UA 0.2 <2.0 mg/dL 8:56 PM CDT [facility] BILIRUBIN UA Negative Negative 01/12/2025 8:56 PM CDT [facility] BLOOD UA 1+(A) Negative 01/12/2025 8:56 PM CDT [facility] Urine URINE SPECIMEN OBTAINED BY CLEAN CATCH PROCEDURE / Unknown Collection / Unknown 01/12/2025 8:39 PM CDT 01/12/2025 8:48 PM CDT us Joseph Mcdowell DO URINE ORDERABLES Final Result [facility] CLIA # [id number] [address] [place] [id number] * HCG QUALITATIVE, URINE (01/12/2025 8:39 PM CDT) HCG QUAL URINE Negative Negative 01/12/2025 8:56 PM CDT [facility] COLOR UA Yellow Pale to Dark Yellow 01/12/2025 8:56 PM CDT [facility] CLARITY UA Clear Clear 01/12/2025 8:56 PM CDT [facility] Urine URINE SPECIMEN OBTAINED BY CLEAN CATCH PROCEDURE / Unknown Collection / Unknown 01/12/2025 8:39 PM CDT 01/12/2025 8:48 PM CDT us Joseph Mcdowell DO URINE ORDERABLES Final Result [facility] CLIA # [id number] [address] [place] [address] * CT ABDOMEN PELVIS W CONTRAST (01/12/2025 8:29 PM CDT) Anatomical Region Laterality Modality Abdomen Computed Tomogra phy 01/12/2025 8:30 PM CDT Impressions 01/12/2025 8:36 PM CDT IMPRESSION: 1. Findings consistent with uncomplicated diverticulitis involving the distal sigmoid colon. 2. Hepatomegaly. 3. Additional incidental findings as above. Narrative 01/12/2025 8:36 PM CDT Exam: CT ABDOMEN PELVIS W CONTRAST Date/Time of Exam: 01/12/2025 8:29 PM REASON FOR EXAM: LLQ abdominal pain, History of diverticulitis diagnosed 2 days ago, worsening pain and fever. DIAGNOSIS: See Reason for Exam. Technique: CT of the abdomen was performed following the administration of intravenous contrast. Contrast: 100 mL Isovue-300 Findings: ABDOMEN: There are inflammatory changes seen surrounding the distal sigmoid colon in the right hemipelvis. There is no evidence of free air to suggest perforation and there is no fluid collection to suggest abscess despite some adjacent fat stranding. The remainder of the colon is unremarkable with appendectomy changes in the right lower quadrant. The small bowel loops are within normal limits. The stomach is unremarkable. The lungs are clear. The liver is enlarged with the right hepatic lobe measuring 24 Anabaptism cranial caudal dimension. There is some fatty infiltration adjacent to the falciform ligament which is normal variant. The gallbladder is absent. The biliary tree is within normal limits otherwise. The spleen, adrenal glands, and pancreas are stable in appearance with a left adrenal nodule again identified measuring up to 1.6 cm. Stability since 2020 would favor a benign process such as adrenal adenoma. The kidneys are unremarkable. Enhancement pressure structures are within normal limits. There is mild thoracolumbar spondylosis. Pelvis: There is no free fluid in the pelvis. The bladder is unremarkable. Uterus is absent and the adnexa are atrophic. There is no pathologic inguinal or pelvic adenopathy. The bony pelvis is intact with degenerative changes. Procedure Note Odin Sousa MD - 01/12/2025 Exam: CT ABDOMEN PELVIS W CONTRAST Date/Time of Exam: 01/12/2025 8:29 PM REASON FOR EXAM: LLQ abdominal pain, History of diverticulitis diagnosed 2 days ago, worsening pain and fever. DIAGNOSIS: See Reason for Exam. Technique: CT of the abdomen was performed following the administration of intravenous contrast. Contrast: 100 mL Isovue-300 Findings: ABDOMEN: There are inflammatory changes seen surrounding the distal sigmoid colon in the right hemipelvis. There is no evidence of free air to suggest perforation and there is no fluid collection to suggest abscess despite some adjacent fat stranding. The remainder of the colon is unremarkable with appendectomy changes in the right lower quadrant. The small bowel loops are within normal limits. The stomach is unremarkable. The lungs are clear. The liver is enlarged with the right hepatic lobe measuring 24 Anabaptism cranial caudal dimension. There is some fatty infiltration adjacent to the falciform ligament which is normal variant. The gallbladder is absent. The biliary tree is within normal limits otherwise. The spleen, adrenal glands, and pancreas are stable in appearance with a left adrenal nodule again identified measuring up to 1.6 cm. Stability since 2020 would favor a benign process such as adrenal adenoma. The kidneys are unremarkable. Enhancement pressure structures are within normal limits. There is mild thoracolumbar spondylosis. Pelvis: There is no free fluid in the pelvis. The bladder is unremarkable. Uterus is absent and the adnexa are atrophic. There is no pathologic inguinal or pelvic adenopathy. The bony pelvis is intact with degenerative changes. IMPRESSION: 1. Findings consistent with uncomplicated diverticulitis involving the distal sigmoid colon. 2. Hepatomegaly. 3. Additional incidental findings as above. Joseph Mcdowell DO CT ORDERABLES Final Result * LACTIC ACID (01/12/2025 7:23 PM CDT) LACTIC ACID 0.7 <=2.0 mmol/L 01/12/2025 7:45 PM CDT [facility] Blood BLOOD SPECIMEN / Unknown Collection / Unknown 01/12/2025 7:23 PM CDT 01/12/2025 7:28 PM CDT Joseph Mcdowell DO CHEMISTRY ORDERABLES Final Resu lt [facility] CLIA # [id number] [address] [place] [address] * (ABNORMAL) C-REACTIVE PROTEIN (01/12/2025 7:23 PM CDT) CRP 91.9(H) <5.0 mg/L 01/12/2025 8:11 PM CDT [facility] Blood Collection / Unknown 01/12/2025 7:23 PM CDT 01/12/2025 7:28 PM CDT Joseph Mcdowell DO CHEMISTRY ORDERABLES Final Resu lt Performing Organization Address [facility]/ZIP Co de Phone Number [facility] CLIA # [id number] [address] [place] [address] * (ABNORMAL) LIPASE (01/12/2025 7:23 PM CDT) LIPASE 12(L) 13 - 60 U/L 01/12/2025 7:48 PM CDT [facility] Blood Collection / Unknown 01/12/2025 7:23 PM CDT 01/12/2025 7:28 PM CDT Joseph Paniaguarafa CORONADO CHEMISTRY ORDERABLES Final Resu lt Performing Organization Address [facility]/ZIP Co de Phone Number [facility] CLIA # [id number] [address] [place] [address] * QUEST TEST IN QUESTION (ACTION NEEDED) (NO MY CHART) (01/11/2025 12:00 AM CDT) SEE NOTE [facility] Comment: The labeling of the requisition and/or specimen(s) is in question. SPECIMEN TYPE 1SS 1L [facility] TEST(S) ORDERED [id number] [phone] [facility] ORIGINAL NAME ON SPECIMEN OR REQ JESUSITA HOLM I [facility] Date Rec'd: [id number] [facility] COMMENT [facility] Comment: To prevent further delays in testing please contact us immediately, please call [phone] ([phone]). Test Performed at: [facility] [place], [employer] [address] Natasha Bains MD 01/11/2025 01/19/2025 3:1 0 AM CDT December CLINICAL APPLICATION SPECIALIST CHEMISTRY ORDERABLES Final Resul t [facility] [phone] [facility] [id number] [place] [address] * HEMOGLOBIN A1C (08/08/2022 9:49 AM BAR WAITER/WAITRESS) HEMOGLOBIN A1C 5.3 <5.7 % of total Hgb [facility] Comment: For the purpose of screening for the presence of diabetes: <5.7% Consistent with the absence of diabetes 5.7-6.4% Consistent with increased risk for diabetes (prediabetes) > or =6.5% Consistent with diabetes This assay result is consistent with a decreased risk of diabetes. Currently, no consensus exists regarding use of hemoglobin A1c for diagnosis of diabetes in children. According to [place] [employer] (ADA) guidelines, hemoglobin A1c <7.0% represents optimal control in non- diabetic patients. Different metrics may apply to specific patient populations. Standards of Medical Care in Diabetes(ADA). ESTIMATED AVERAGE GLUCOSE (MG/DL) 105 mg/dL [facility] ESTIMATED AVERAGE GLUCOSE (MMOL/L) 5.8 mmol/L [email or web address] Comment: Test Performed at: [place] [place] [place] [address] Micah Lambert D.O., MPH Blood 08/08/2022 9:49 AM BAR WAITER/WAITRESS 08/09/2022 3:35 AM BAR WAITER/WAITRESS us Janine Lambert CLINICAL APPLICATION SPECIALIST CHEMISTRY ORDERABLES Final Re sult [facility] [phone] [facility] [address] [facility] [place] [address] from Last 3 Months or Most Recently Relevant to Health Maintenance Insurance RX [employer] Medicaid KATHY Advance Directives For more information, please contact: [phone] * Full Code (Latest Code Status on File) Date Activated Date Inactivated Comments 03/12/2025 10:36 AM 03/14/2025 6:12 PM * Full Code Date Activated Date Inactivated Comments 03/12/2025 5:22 AM 03/12/2025 10:36 AM Care Teams Customer Contact Specialist Relationship Specialty Start Date End Date Briana Dumas DO [address] [place] [address] PCP - General Family Practice 07/21/21
[2025-03-28 23:13] VITALS: BP 130/86; PULSE 97; RESP 18; TEMP 36.7; O2SAT 97; BMI 52.0
[2025-03-29 01:26] LABS: Hematocrit 46.5 % (36-47); Hemoglobin 15.40 g/dL (11.27-16.99); Mean Corpuscular HGB Conc 33.1 g/dL (30-55); Mean Corpuscular Hemoglobin 30.9 pg (27-33); Mean Corpuscular Volume 93.2 fl (85-98); Nucleated Red Blood Cells % 0 %; Platelet Count 272 10^3/cmm (157-399); Red Blood Count 4.99 10^6/uL (3.85-5.65); White Blood Count 14.59 10^3/uL (3.29-11.43)
[2025-03-29 01:48] LABS: Alanine Aminotransferase 20 U/L (0-33); Albumin Level 3.5 g/dL (3.5-5.2); Alkaline Phosphatase 94 U/L (35-105); Anion Gap 15.0 (5-19); Aspartate Amino Transferase 13 U/L (0-32); Blood Urea Nitrogen 17 mg/dL (6-20); Calcium 9.1 mg/dL (8.5-10.5); Carbon Dioxide 23 mmol/L (22-29); Chloride 102 mmol/L (98-107); Creatinine Clr Calc Pharmacy 144.2682; Globulin 3.9 g/dL (1.3-4.6); Glucose 101 mg/dL (65-115); Osmolality Calculated 284 mOsm/kg (285-295); Potassium 4.0 mmol/L (3.5-5.1); Sodium 136 mmol/L (136-145); Total Protein 7.4 g/dL (6.6-8.7)
[2025-03-29 02:24] LABS: Lipase 18 U/L (13-60)
[2025-03-29 02:31] LABS: Glucose Urine UA Negative (Normal); Nitrate Urine Negative (Negative); Specific Gravity, Urine 1.019 (1.005-1.030)
--- NOTE | 2025-03-29 02:33 | CTR_ITS ---
PROCEDURE INFORMATION: Exam: CT Abdomen And Pelvis With Contrast Exam date and time: 03/29/2025 2:53 AM Age: 34 years old Clinical indication: Abdominal pain; Localized; Left lower quadrant (llq); Prior surgery; Surgery date: <1 month; Surgery type: Two weeks post op sigmoid resection due to diverticulitis. Gb. Appy. Csection. Hysterectomy. C/O llq/groin pain. Two weeks post op sigmoid resection due to diverticulitis. ; Additional info: Llq/groin pain surgery 2w ago TECHNIQUE: Imaging protocol: Computed tomography of the abdomen and pelvis with contrast. Radiation optimization: All CT scans at this facility use at least one of these dose optimization techniques: automated exposure control; mA and/or kV adjustment per patient size (includes targeted exams where dose is matched to clinical indication); or iterative reconstruction. Contrast material: OMNI 350; Contrast volume: 100 ml; Contrast route: INTRAVENOUS (IV); COMPARISON: CT abdomen pelvis w con* [id number] 01/11/2025 12:38 AM RADIATION DOSE METRICS: Total DLP (mGy-cm): 1288.83 FINDINGS: Liver: Normal. No mass. Gallbladder and biliary ducts: Cholecystectomy. Pancreas: Normal. No ductal dilation. Spleen: Normal. No splenomegaly. Adrenal glands: Normal. No mass. Kidneys and ureters: Normal. No hydronephrosis. Stomach and bowel: Unremarkable. No obstruction. No mucosal thickening. Sigmoid anastomosis demonstrates no evidence of inflammation obstruction or other complication. Appendix: No evidence of appendicitis. Intraperitoneal space: Unremarkable. No free air. No significant fluid collection. Vasculature: Unremarkable. No abdominal aortic aneurysm. Lymph nodes: Unremarkable. No enlarged lymph nodes. Urinary bladder: Unremarkable as visualized. Reproductive: Unremarkable as visualized. Bones/joints: Unremarkable. No acute fracture. Soft tissues: Fluid anterior inferior abdominal wall fat. This measures 6.2 x 3.6 x 9.4 cm. Hematoma versus seroma versus abscess. CT/CT abdomen pelvis w con* [id number] IMPRESSION: No acute findings.
[2025-03-29 02:36] LABS: Add Urine Microscopic? YES
[2025-03-29] MEDS: iohexol 350 mg/mL 500 mL Btl (per mL) IV (02:55)
[2025-03-29 02:56] LABS: Lactic Sepsis W/Reflex 1.0 mmol/L (0.5-2.2)
[2025-03-29] MEDS: methylPREDNISolone sod succ 125 mg/2 mL INJ 80 MG IVP (03:11)
[2025-03-29] MEDS: diphenhydrAMINE 50 mg/mL SDV 1mL IVP (03:11)
[2025-03-29 03:18] VITALS: RESP 16
[2025-03-29] MEDS: morphine 4 mg/mL SDV 1 mL IVP (03:18)
[2025-03-29] MEDS: ondansetron 2 mg/ML SDV 2 mL 4 MG IVP (03:18)
[2025-03-29 03:25] VITALS: BP 147/92; PULSE 76; RESP 18; O2SAT 99
--- NOTE | 2025-03-29 04:06 | W.ED.ABDPA2 ---
HPI - Abdominal Pain General: Chief Complaint: Abdominal Pain Stated Complaint: GROIN IS BURING FROM SURGERY Time Seen by Provider: 03/29/25 02:03 History of Present Illness: 34-year-old female who had a left hemicolectomy 2 weeks ago at an outside facility. She presents with a burning sensation to her left lower quadrant and left groin that has been ongoing for the past week or so. It worsened to some degree the last couple of days. She increased pain medication dose with some improvement. She has not had fever. She is not vomiting. Pain is worse with movement of her thigh, and abdomen. Patient also complains of a bug bite to her right upper neck. She states that she felt the bite this morning, brushed the bug off, and did not see the bug. She put some antibiotic ointment on the bite. There is more swelling now than there was a few hours ago. It is painful and luna, and itches to some degree. Related Data Home Medications ?Medication ?Instructions ?Recorded ?Confirmed acetaminophen 500 mg tablet 1,000 mg PO Q6H PRN Pain 08/04/24 12/28/24 (Tylenol Extra Strength) ondansetron 4 mg disintegrating 4 mg PO Q8H PRN nausea/emesis 12/28/24 12/28/24 tablet Previous Rx's ?Medication ?Instructions ?Recorded albuterol sulfate 90 mcg/actuation 2 puff inhalation Q6H PRN 10/27/24 aerosol inhaler shortness of breath or wheezing #8.5 grams amoxicillin 875 mg-potassium 1 tab PO BID #14 tabs 12/28/24 clavulanate 125 mg tablet promethazine 25 mg tablet 25 mg PO Q6H PRN nausea and 12/28/24 vomiting #20 tabs ciprofloxacin HCl 500 mg tablet 500 mg PO Q12H #20 tabs 01/11/25 (Cipro) doxycycline hyclate 100 mg tablet 100 mg PO BID 7 days #14 tabs 03/29/25 Allergies Allergy/AdvReac Type Severity Reaction Status Date / Time cephalexin (From Keflex) Allergy Unknown Verified 03/28/25 23:20 Sulfa (Sulfonamide Allergy Unknown Verified 03/28/25 23:20 Antibiotics) sulfamethoxazole (From Allergy Unknown Verified 03/28/25 23:20 Bactrim) tramadol Allergy ADR-Swelling Verified 03/28/25 23:20 of the Eye trimethoprim (From Bactrim) Allergy Unknown Verified 03/28/25 23:20 ketorolac (From Toradol) AdvReac ADR-Swelling Verified 03/28/25 23:20 of the Eye/ [facility] PFS: Medical History (Updated 03/29/25 @ 04:11 by Dominic Singh DO) Hemorrhagic cyst of left ovary Demyelinating disease of central nervous system Rheumatoid arthritis Chronic migraine without aura, intractable, with status migrainosus Immunization counseling High risk medication use Positive LOKESH (antinuclear antibody) Inflammatory arthritis Epidermoid cyst of face surgically removed Anxiety Depression Stomach ulcer No pertinent past medical history Surgical History H/O tubal ligation History of cholecystectomy History of appendectomy History of delivery History of hysterectomy History of tonsillectomy Family History Mother Colon cancer Diabetes Hyperlipidemia Hypertension Stroke Heart disease Father Diabetes Hypertension Thyroid disease Denies family history of Clotting disorder Chronic kidney disease (CKD) Bleeding disorder Social History Smoking and tobacco/nicotine status: never used tobacco/nicotine Substance/Drug Use: never Physical Exam Const: COMMON NORMALS: no acute distress GENERAL APPEARANCE: cooperative; not ill appearing HENMT: COMMON NORMALS: normocephalic and atraumatic HEAD & SCALP: normocephalic and atraumatic Neck/C-Spine: OTHER: Small punctate wound to the right anterior upper neck with surrounding redness. Redness is 3 cm in diameter. Mildly raised. No streaking. Chest: CHEST: Yes Symmetrical chest wall rise Resp: COMMON NORMALS: normal respiratory effort and clear to auscultation bilaterally AUSCULTATION: clear to auscultation bilaterally Cardio: COMMON NORMALS: regular rate and regular rhythm RATE: regular rate RHYTHM: regular rhythm GI: OTHER: Postsurgical abdominal wall with closed port holes from laparoscopy. There is minimal redness in the left lower quadrant. There is tenderness in this area. No drainage. No other redness. No warmth Skin: NARRATIVE SKIN EXAM: See above Course Vital Signs: Vital signs: Vital Signs Temperature 98.1 F 03/28/25 23:13 Pulse Rate 71 03/29/25 04:23 Respiratory Rate 16 07/14/25 04:23 Blood Pressure 109/72 03/29/25 04:23 Pulse Oximetry 97 03/29/25 04:23 MDM - Abdominal Pain Medical Decision Making Patient with left lower quadrant left groin tenderness following laparoscopy 2 weeks ago. Skin is tender, like there may be a seroma under the surface. There is no leakage or drainage. Incisions look excellent. White blood cell count is 14.6. BMP is normal. Urinalysis is negative. Lactic acid is 1. Creatinine is 0.8. CRP is 18.2.CT shows fluid in the anterior inferior abdominal wall fat consistent with likely seroma versus less likely hematoma or abscess. She will be covered with antibiotics not only for this, but for the bite on her neck. She is given a dose of steroid for the bite as well. She will take Benadryl. Antibiotic chosen is doxycycline to cover potential tick borne illness. Lab Data 03/28/25 01:20 03/28/25 01:20 Labs/Radiology: Radiology Impressions Abdomen/Pelvis CT 03/29/25 02:33 IMPRESSION: No acute findings. Laboratory Results WBC 14.59 10^3/uL (3.29-11.43) H 03/28/25 01:20 RBC 4.99 10^6/uL (3.85-5.65) 03/28/25 01:20 Hgb 15.40 g/dL (11.27-16.99) 03/28/25 01:20 Hct 46.5 % (36-47) 03/28/25 01:20 MCV 93.2 fl (85-98) 03/28/25 01:20 MCH 30.9 pg (27-33) 03/28/25 01:20 MCHC 33.1 g/dL (30-55) 03/28/25 01:20 RDW 12.7 % (12.1-15.1) 03/28/25 01:20 Plt Count 272 10^3/cmm (157-399) 03/28/25 01:20 MPV 10.1 fL (7.4-10.4) 03/28/25 01:20 Neut % (Auto) 58.7 % 03/28/25 01:20 Lymph % (Auto) 33.1 % 03/28/25 01:20 Perkins % (Auto) 4.5 % 03/28/25 01:20 Eos % (Auto) 2.9 % 03/28/25 01:20 Baso % (Auto) 0.5 % 03/28/25 01:20 Neut # (Auto) 8.55 10^3/uL (1.8-7.7) H 03/28/25 01:20 Lymph # (Auto) 4.8 10^3/uL (0.8-4.8) 03/28/25 01:20 Perkins # (Auto) 0.7 10^3/uL (0.2-0.9) 03/28/25 01:20 Eos # (Auto) 0.4 10^3/uL (0.0-0.8) 03/28/25 01:20 Baso # (Auto) 0.1 10^3/uL (0.0-0.1) 03/28/25 01:20 Nucleated RBC % (auto) 0 % 03/28/25 01:20 Nucleated RBCs # 0.0 /100WBC 03/28/25 01:20 Sodium 136 mmol/L (136-145) 03/28/25 01:20 Potassium 4.0 mmol/L (3.5-5.1) 03/28/25 01:20 Chloride 102 mmol/L (98-107) 03/28/25 01:20 Carbon Dioxide 23 mmol/L (22-29) 03/28/25 01:20 Anion Gap 15.0 (5-19) 03/28/25 01:20 BUN 17 mg/dL (6-20) 03/28/25 01:20 Creatinine 0.8 mg/dL (0.5-0.9) 03/28/25 01:20 GFR Calculation 81.2 mL/min (90-130) L 03/28/25 01:20 Glucose 101 mg/dL (65-115) 03/28/25 01:20 Calculated Osmolality 284 mOsm/kg (285-295) L 03/28/25 01:20 Lactic Acid 1.0 mmol/L (0.5-2.2) 03/29/25 01:20 Calcium 9.1 mg/dL (8.5-10.5) 03/28/25 01:20 Total Bilirubin 0.3 mg/dL (0.15-1.2) 03/28/25 01:20 AST 13 U/L (0-32) 03/28/25 01:20 ALT 20 U/L (0-33) 03/28/25 01:20 Alkaline Phosphatase 94 U/L (35-105) 03/28/25 01:20 C-Reactive Protein 18.2 mg/L (0.0-4.9) H 03/29/25 01:20 Total Protein 7.4 g/dL (6.6-8.7) 03/28/25 01:20 Albumin 3.5 g/dL (3.5-5.2) 03/28/25 01:20 Globulin 3.9 g/dL (1.3-4.6) 03/28/25 01:20 Lipase 18 U/L (13-60) 03/29/25 01:20 Urine Color Yellow (Yellow) 03/29/25 01:59 Urine Appearance Cloudy (CLEAR) A 03/29/25 01:59 Urine pH 5.5 (5-7) 03/29/25 01:59 Ur Specific [place] 1.019 (1.005-1.030) 03/29/25 01:59 Urine Protein Negative (Negative) 03/29/25 01:59 Urine Glucose (UA) Negative (Normal) 03/29/25 01:59 Urine Ketones Negative (Negative) 03/29/25 01:59 Urine Blood Trace (Negative) A 03/29/25 01:59 Urine Nitrate Negative (Negative) 03/29/25 01:59 Urine Bilirubin Negative (Negative) 03/29/25 01:59 Urine Urobilinogen 1.0 mg/dL (Negative) 03/29/25 01:59 Ur Leukocyte Esterase Negative (Negative) 03/29/25 01:59 Urine RBC 3-5 /hpf (0-2) 03/29/25 01:59 Urine WBC 0-5 /hpf (0-5) 03/29/25 01:59 Ur Squamous Epith Cells 11-20 /hpf (0-5) H 03/29/25 01:59 Amorphous Sediment Not Reportable 03/29/25 01:59 Urine Bacteria 4+ /hpf (NONE) H 03/29/25 01:59 Hyaline Casts 1.21 /lpf 03/29/25 01:59 All radiology interpretation(s) finalized by discharge Discharge Plan Discharge Patient Disposition: Home Clinical Impression: Insect bite of neck, Abdominal wall seroma Condition: Stable Prescriptions: New doxycycline hyclate 100 mg tablet 100 mg PO BID 7 Days Qty: 14 0RF No Action albuterol sulfate 90 mcg/actuation HFA aerosol inhaler 2 puff inhalation Q6H PRN (Reason: shortness of breath or wheezing) Qty: 8.5 0RF ondansetron 4 mg tablet,disintegrating 4 mg PO Q8H PRN (Reason: nausea/emesis) amoxicillin-pot clavulanate 875-125 mg tablet 1 tab PO BID Qty: 14 0RF promethazine 25 mg tablet 25 mg PO Q6H PRN (Reason: nausea and vomiting) Qty: 20 0RF acetaminophen [Tylenol Extra Strength] 500 mg Tablet 1,000 mg PO Q6H PRN (Reason: Pain) ciprofloxacin HCl [Cipro] 500 mg tablet 500 mg PO Q12H Qty: 20 0RF Discharge Orders: Discharge ED (Routine); Ordered 03/29/25 Ordered By: Dominic Singh Referrals: Briana Dumas DO [Primary Care Provider, Family Practice] Patient Instructions: Insect Bite or Sting (ED), Seroma (DC), Opioid Safety, Pain Management, Patient Portal & Michael Instructions Activity Restrictions/Additional Instructions: You will be covered with antibiotics for the insect bite, as well as a seroma, even though at this point it does not look infected necessarily. Steroids were given for pain and swelling related to the insect bite. You may take Benadryl for itching and pain related to the insect bite. Call your surgeon Saturday, let them know you were seen here with an increase in your pain. They may wish to see you. Return for fever greater than 100, worsening pain despite treatment, worsening swelling, drainage, other concerning symptoms. Print Language: Mohawk Coding Level of Care Code ED Chief Wheelage Clerk for Jessica Cassidy
[2025-03-29 04:20] VITALS: BP 109/72; PULSE 71; RESP 16; O2SAT 97
[2025-03-29 04:23] VITALS: BP 109/72; PULSE 71; RESP 16; O2SAT 97
== END 2025-03-29 04:24 | disposition home or self-care (01) ==
PROVIDERS: Emergency Provider Emergency Medicine; PCP Family Medicine
DX: K91.872 Postprocedural seroma of a digestive system organ or structure following a digestive system procedure (principal); S10.96XA Insect bite of unspecified part of neck, initial encounter; W57.XXXA Bitten or stung by nonvenomous insect and other nonvenomous arthropods, initial encounter; Z98.890 Other specified postprocedural states
CPT/HCPCS: 36415; 74177; 80053; 81001; 83605; 83690; 85025; 86140; 96374; 96375; 99285; J1200; J2270; J2405; J2919

== ENCOUNTER 2025-04-16 07:45 | Emergency (ER) | payer MEDICAID, SELFPAY ==
[2025-04-16] VITALS (16 sets, daily range): BP systolic 131–181; BP diastolic 89–119; PULSE 75–96; RESP 12–24; TEMP 36.6; O2SAT 14–99; BMI 51.7
--- NOTE | 2025-04-16 07:49 | ECG_ITS ---
[facility] Date: 2025-04-16 Pat Name: Ivy Cole Department: Room: Gender: Female Shoe Sticks Repairer: : 1990 Requested By: Raghu Fletcher Order Number: [id number] Reading MD: KADIE BLUM Measurements Intervals [place] Rate: 75 P: 36 RI: 142 QRS: 63 QRSD: 96 T: 62 QT: 355 QTc: 398 Interpretive Statements SINUS RHYTHM NONSPECIFIC T-WAVE ABNORMALITY Compared to ECG 11/06/2024 13:35:07 T-wave abnormality now present Electronically Signed On 04-19-2025 14:00:16 CDT by KADIE BLUM [email or web address]
--- OUTSIDE RECORDS SUMMARY | 2025-04-16 07:52 | XMS_ITS | Encounter Summary ---
Author Organization [facility] Address [address] [place] [address] Care Team Providers Care Inspector Final Assembly Electrical Name Role Phone Briana Dumas Primary Care Provider Encounter Details Date Type Department Care Team (Late st Contact Info) Description 2025 External Device Data STL ABSTRACTION Provider, Abstract NO ADDRESS ON FILE Social History Tobacco Use Types Packs/Day Years Used Date Smoking Tobacco: Every Day Cigarettes Passive Smoke Exposure: Current Smokeless Tobacco: Never Alcohol Use Standard Drinks/Week Comments No 0 (1 standard drink = 0.6 oz pur e alcohol) Comments No Sex and Gender Information Value Date Recorded Sex Assigned at Not on file Legal Sex Female 7:26 AM SHOE LINING FITTER Gender Identity Not on file Sexual Orientation Not on file documented as of this encounter Plan of Treatment Upcoming Encounters Date Type Department Care Team (Latest Contact Info) Description 05/19/2025 1:20 PM CDT Hospital Encounter [facility] [place] [address] [place] [address] Avtar Kumar MD [address] [place] [address] Diverticulitis of colon without hemorrhage 05/19/2025 1:20 PM CDT - 05/19/2025 1:40 PM CDT Surgery [facility] [place] [address] [place] [address] Avtar Kumar MD [address] [place] [address] COLONOSCOPY Scheduled Procedures Name Priority Associated Diagnoses Date/Ti me COLONOSCOPY Diverticulitis of colon without hemorrhage 05/19/2025 1:20 PM CDT documented as of this encounter Goals Goal Patient Goal Type Associated Problems Recent Progress Patient-Stated? Author Autogenera blayne Goal Care Plan Autogenerated Problem No Briana Cali documented as of this encounter Visit Diagnoses Not on filedocumented in this encounter Additional Health Concerns Active Problems Noted Date Diagnosed Date Autogenerated Problem 04/02/2025 Assessment Noted Time PHQ-9 Depression Total Score: 2 02/10/20 25 7:58 AM CDT documented as of this encounter Care Teams Inspector Final Assembly Electrical Relationship Specialty Start Date End Date Briana Dumas DO [address] [place] [address] PCP - General Family Practice 07/21/21 documented as of this encounter
--- OUTSIDE RECORDS SUMMARY | 2025-04-16 07:52 | XMS_ITS | Encounter Summary ---
Author Organization [facility] Address [address] [place] [address] Care Team Providers Care Acoustical Tile Drill Press Operator Name Role Phone Briana Dumas Primary Care [...] on file Legal Sex Female 7:26 AM TRAFFIC I MANAGER Gender Identity Not on file Sexual Orientation Not on file documented as of this encounter Plan of Treatment Upcoming Encounters Date Type Department Care Team (Latest Contact Info) Description 05/19/2025 1:20 PM CDT Hospital Encounter [facility] [place] [address] [place] [address] Avtar Kumar MD [address] [place] [address] Diverticulitis of colon without hemorrhage 05/19/2025 1:20 PM CDT - 05/19/2025 1:40 PM CDT Surgery [facility] [place] [address] [place] [address] Avtar Kumar MD [address] [place] [address] COLONOSCOPY Scheduled Procedures Name Priority [...] documented as of this encounter Care Teams Acoustical Tile Drill Press Operator Relationship Specialty Start Date End Date Briana Dumas DO [address] [place] [address] PCP - General Family Practice 07/21/21 documented as of this encounter
--- OUTSIDE RECORDS SUMMARY | 2025-04-16 07:52 | XMS_ITS | Encounter Summary ---
Author Organization [facility] Address [address] [place] [address] Care Team Providers Care Instructor Wastewater Treatment Plant Name Role Phone Briana Dumas Primary Care Provider [phone] Reason for Visit * Reason Onset Date Comments Medication Refill 2025 Encounter Details Date Type Department Care Team (Late st Contact Info) Description 2025 [address]ill [facility] Gen Spec Surg [address] [place] [address] Rafal Britt MD [address] [place] [address] [address] [place] [address] Diverticulitis of colon without hemorrhage; Post-operative pain [...] on file Legal Sex Female 7:26 AM CLIENT SUPPORT COORDINATOR Gender Identity Not on file Sexual Orientation Not on file documented as of this encounter Plan of Treatment Upcoming Encounters Date Type Department Care Team (Latest Contact Info) Description 05/19/2025 1:20 PM CDT Hospital Encounter [facility] End[facility] [place] [address] [place] [address] Avtar Kumar MD [address] [place] [address] Diverticulitis of colon without hemorrhage 05/19/2025 1:20 PM CDT - 05/19/2025 1:40 PM CDT Surgery [facility] [place] [address] [place] [address] Avtar Kumar MD [address] [place] [address] COLONOSCOPY Scheduled Procedures Name Priority Associated Diagnoses [...] hemorrhage) Post-operative pain Other acute postoperative pain Diverticulitis of colon without hemorrhage Diverticulitis of colon (without mention of hemorrhage) documented in this encounter Additional Health Concerns Active Problems Noted Date Diagnosed Date Autogenerated Problem 04/02/2025 Assessment Noted Time PHQ-9 Depression Total Score: 2 02/10/20 25 7:58 AM CDT documented as of this encounter Care Teams Instructor Wastewater Treatment Plant Relationship Specialty Start Date End Date Briana Dumas DO [address] [place] [address] PCP - General Family Practice 07/21/21 documented as of this encounter
--- OUTSIDE RECORDS SUMMARY | 2025-04-16 07:52 | XMS_ITS | Encounter Summary ---
Author Organization [facility] Address [address] [place] [address] Care Team Providers Care Digital Marketing Project Manager Name Role Phone Briana Dumas Primary Care [...] on file Legal Sex Female 7:26 AM FILTER PLANT OPERATOR Gender Identity Not on file Sexual Orientation Not on file documented as of this encounter Plan of Treatment Upcoming Encounters Date Type Department Care Team (Latest Contact Info) Description 05/19/2025 1:20 PM CDT Hospital Encounter [facility] Endoscopy [place] [address] [place] [address] Avtar Kumar MD [address] [place] [address] Diverticulitis of colon without hemorrhage 05/19/2025 1:20 PM CDT - 05/19/2025 1:40 PM CDT Surgery [facility] [place] [address] [place] [address] Avtar Kumar MD [address] [place] [address] COLONOSCOPY Scheduled Procedures Name Priority [...] documented as of this encounter Care Teams Digital Marketing Project Manager Relationship Specialty Start Date End Date Briana Dumas DO [address] [place] [address] PCP - General Family Practice 07/21/21 documented as of this encounter
--- OUTSIDE RECORDS SUMMARY | 2025-04-16 07:52 | XMS_ITS | Patient Health Record ---
Author Organization [facility] Address [address] [place] [address] Care Team Providers Care White Shoe Ragger Name Role Phone Kimo MCCONNELL, Dodie Primary [...] W/U Status Risk Notes Problem Hidradenitis suppurativa (48514296) Hidradenitis suppurativa (L73.2) Active confirmed Continued Dr. Wilson plan of care, Patient is doing amazing on Humira with 99% of lesions resolved and minimal inflammation present ( 1 small and 1 moderate cyst present) Years of chronic HS has left scaring in axilla, breast, thighs and abdomen. Patient is very happy with results. 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) Inactive confirmed Problem Right flank pain (268835413) RIGHT FLANK PAIN (R10.9) Inactive confirmed Problem INJURY OF ANKLE, RIGHT, INITIAL ENCOUNTER (S99.911A) Inactive confirmed Plan Of Treatment Pending Test Test Name Order Date POC: Urine Test, HCG POC: Transvaginal Ultrasound 01/10/2021 POC: Transvaginal Ultrasound 03/06/2021 POC: Transvaginal Ultrasound 02/28/2021 INJECTION INTO SKIN LESIONS, 1 TO 7 - 11 900 08/01/2021 Venipuncture[i] 04/19/2021 Insurance Providers Payer Name Payer Address Payer Phone Subscriber Number Group Number Insured Name Patient Relationship to Insured Coverage Start Date Coverage End Date [facility] MEDICAID COMM[employer]ITY PLAN [address] [place] [address] [id number] [facility] [employer] Self - patient is the insured [place] [employer] [address] [place] [address] [id number] [employer] Self - patient is the insured Medical (General) History Medical History History ICD Code Problems: CHEST PAIN, UNSPECIFIED TYPE, ProblemStatus: Active, INJURY OF ANKLE, RIGHT, INITIAL ENCOUNTE R, ProblemStatus: Active, Problems Reconciled, ProblemStatus: Acti ve, Surgical History Surgery Date(Month/Year) delivery and tubal ligation Laparoscopic cholecystectomy Facial surgery [id number] 02/22/2021 Diagnostic Laparoscopy with appendectomy, Lysis of Adhesion, Incision and Drainage of right breast abscess, ProblemStatus: Active,
--- OUTSIDE RECORDS SUMMARY | 2025-04-16 07:52 | XMS_ITS | Encounter Summary ---
Author Organization [facility] Address [address] [place] [address] Care Team Providers Care Spindle Maker Name Role Phone Briana Dumas Primary Care Provider Encounter Details Date Type Department Care Team (Late st Contact Info) Description 02/11/2025 Results Follow-Up [facility] Family [facility] [place] [address] [place] [address] Pan, December, RIVET PASSER [address] [place] [address] POC URINALYSIS DIPSTICK AUTOMATED, URINE [...] on file Legal Sex Female 7:[address]GE Gender Identity Not on file Sexual Orientation Not on file documented as of this encounter Plan of Treatment Upcoming Encounters Date Type Department Care Team (Latest Contact Info) Description 05/19/2025 1:20 PM CDT Hospital Encounter [facility] [place] [address] [place] [phone] Avtar Kumar MD [address] [facility] [address] [place] [phone] Diverticulitis of colon without hemorrhage 05/19/2025 1:20 PM CDT - 05/19/2025 1:40 PM CDT Surgery [facility] [place] [address] [place] [facility] [address] [place] [phone] Avtar Kumar MD [address] [facility] [address] [place] [phone] COLONOSCOPY Scheduled Procedures Name Priority Associated Diagnoses Date/Ti me COLONOSCOPY Diverticulitis of colon without hemorrhage 05/19/2025 1:20 PM CDT documented as of this encounter Visit Diagnoses Not on filedocumented in this encounter Additional Health Concerns Assessment Noted Time PHQ-9 Depression Total Score: 2 02/10/20 25 7:58 AM CDT documented as of this encounter Care Teams Spindle Maker Relationship Specialty Start Date End Date Briana Dumas DO [address] [place] [address] PCP - General Family Practice 07/21/21 documented as of this encounter
--- OUTSIDE RECORDS SUMMARY | 2025-04-16 07:52 | XMS_ITS | Encounter Summary ---
Author Organization [facility] Address [address] [place] [address] Care Team Providers Care Chain Tender Name Role Phone Briana Dumas Primary Care Provider Reason for Visit * Reason Onset Date Maxine Kumar 02/19/2025 Encounter Details Date Type Department Care Team (Late st Contact Info) Description 02/19/2025 Telephone [facility] Gen Spec Surg [place] [facility] [address] [place] [address] Avtar Kumar MD [address] [place] [address] [address] [place] [address] Stacy Social History Tobacco Use Types Packs/Day Years Used Date Smoking Tobacco: Every Day Cigarettes Passive Smoke Exposure: Current Smokeless Tobacco: Never Alcohol Use Standard Drinks/Week Comments No 0 (1 standard drink = 0.6 oz pur e alcohol) Comments No Sex and Gender Information Value Date Recorded Sex Assigned at Not on file Legal Sex Female 7:26 AM INFUSION RN Gender Identity Not on file Sexual Orientation Not on file documented as of this encounter Miscellaneous Notes * Telephone Encounter - Isabelle Jackson - 02/19/2025 2:46 PM CDT Provider: Avtar Kumar MD Next office visit: Visit date not found Caller: [facility] Message: She is calling on DC for a procedure Auth needs clinical info to be attached. She also needs a facility where the procedure is being placed. Call-back Number: [phone] documented in this encounter Plan of Treatment Upcoming Encounters Date Type Department Care Team (Latest Contact Info) Description 05/19/2025 1:20 PM CDT Hospital Encounter [facility] [place] [address] [place] [address] [place] [phone] Avtar Kumar MD [address] [phone] Diverticulitis of colon without hemorrhage 05/19/2025 1:20 PM CDT - 05/19/2025 1:40 PM CDT Surgery [facility] [place] [address] [place] [address] [place] [phone] Avtar Kumar MD [address] [phone] COLONOSCOPY Scheduled Procedures Name Priority Associated Diagnoses Date/Ti me COLONOSCOPY Diverticulitis of colon without hemorrhage 05/19/2025 1:20 PM CDT documented as of this encounter Visit Diagnoses Not on filedocumented in this encounter Additional Health Concerns Assessment Noted Time PHQ-9 Depression Total Score: 2 02/10/20 25 7:58 AM CDT documented as of this encounter Care Teams Chain Tender Relationship Specialty Start Date End Date Briana Dumas DO [address] [place] [phone] PCP - General Family Practice 07/21/21 documented as of this encounter
--- OUTSIDE RECORDS SUMMARY | 2025-04-16 07:53 | XMS_ITS | Clinical Summary ---
Author Organization [facility] Address [address] [place] [address] Phone Care Team Providers Care [facility]one Machine Feeder Name Role Phone Briana Dumas Primary Care [...] times daily. 30 Gram 1 024 Active nicotine (NICODERM CQ) 21 mg/24 [...] Max Daily Amount: 3 Tablets 20 Tablet 025 Active metroNIDAZOLE (FLAGYL) 500 mg tablet Day before surgery, take 1 tablet by mouth at 1pm, 2pm, and 10pm. 3 Tablet 025 Active neomycin (MYCIFRADIN) 500 mg tablet Day before surgery, take 2 tablets at 1pm, 2pm, and 10pm. 6 Tablet 025 Active sodium, potassium and magnesium SULFATES (Suprep Bowel Prep Kit) 17.5-3.13-1.6 gram Recon Soln Follow directions from the clinic 354 mL 025 Active ondansetron (ZOFRAN ODT) 4 mg Tablet, Rapid DissolveIndicat ions:Nausea and vomiting, unspecified vomiting type Take 1 Tablet (4 mg) by mouth every 8 hours as needed for Nausea/Emesis. Dissolve tablet on top of tongue, then swallow with saliva. 30 Tablet 2 025 Active oxyCODONE-aceta minophen (Percocet) 5-325 mg tabletIndicatio ns:Diverticulit is of colon without hemorrhage,Post -operative pain Take 1 Tablet by mouth every 4 hours as needed for Pain, Moderate. Max Daily Amount: 6 Tablets 30 Tablet 025 Active oxyCODONE-aceta minophen (Percocet) 5-325 mg tabletIndicatio ns:Diverticulit is of colon without hemorrhage,Post -operative pain Take 1 Tablet by mouth every 8 hours as needed for Pain, Moderate. Max Daily Amount: 3 Tablets 20 Tablet 025 Active ondansetron (ZOFRAN ODT) 4 mg Tablet, Rapid Dissolve Take 1 Tablet (4 mg) by mouth every 8 hours as needed for Nausea/Emesis. Dissolve tablet on top of tongue, then swallow with saliva. 30 Tablet 2 024 2024 Discontinued ondansetron (ZOFRAN ODT) 4 mg Tablet, Rapid Dissolve Take 1 Tablet (4 mg) by mouth every 8 hours as needed for Nausea/Emesis. Dissolve tablet on top of tongue, then swallow with saliva. 6 Tablet 025 2024 Discontinued oxyCODONE-aceta minophen (Percocet) 5-325 mg tabletIndicatio ns:Diverticulit is of colon without hemorrhage Take 1 Tablet by mouth every 4 hours as needed for Pain, Moderate. Max Daily Amount: 6 Tablets 30 Tablet 5 1:21 PM CDT 025 2024 Discontinued(R eorder) oxyCODONE-aceta minophen (Percocet) [...] Tablets 30 Tablet 025 2024 Discontinued(R eorder) doxycycline hyclate (VIBRAMYCIN) 100 mg tabletIndicatio ns:Hidradenitis suppurativa Take 1 Tablet (100 mg) by mouth 2 times daily for 5 days. 10 Tablet 025 2024 oxyCODONE-aceta minophen (Percocet) 5-325 mg tabletIndicatio ns:Diverticulit [...] of back 08/18/2013 Supervision of high-risk of caroline boyer igravida 10/09/2011 Essential hypertension 10/09/2011 Morbid obesity 10/09/2011 History of labor, current 09/17 Overview (01/12/2021): Admission exam: /-1 per Geoff Marlow MD at 10/09/2011; 11:10 AM Encounters Date Type Department Care Team Description 2025 External Device Data STL ABSTRACTION Provider, Abstract 2025 External Device Data STL ABSTRACTION Provider, Abstract 2025 External Device Data STL ABSTRACTION Provider, Abstract 2025 [facility] Spec Surg [address] [place] [phone] Rafal Britt MD Diverticulitis of colon without hemorrhage; Post-operative pain 04/07/2025 [facility] Spec [address] [place] [phone] Joseph Talbert DO Abdominal pain, acute, left lower quadrant; Diverticulitis of colon without hemorrhage; Post-operative pain 04/06/2025 [facility] Spec Surg [address] [place] [phone] Avtar Kumar MD Diverticulitis of colon without hemorrhage; Post-operative pain 04/05/2025 Orders Only [facility] [address] [place] [address] December, ASTHMA EDUCATOR Nausea and vomiting, unspecified vomiting type (Primary Dx) 04/05/2025 Orders Only [facility] [address] [place] [phone] PanDecember, ASTHMA EDUCATOR Hidradenitis suppurativa (Primary Dx) 04/02/2025 Orders Only [facility] Spec Surg [address] [place] [address] [phone] Avtar Kumar MD 04/02/2025 Orders Only [facility] Surg [address] [phone] Avtar Kumar MD 03/31/2025 11:00 AM CDT Office Visit [facility] Spec Surg [place] [address] [place] [address] [phone] Isis Fontana NP Postoperative visit (Primary Dx) 03/31/2025 External Device Data STL ABSTRACTION Provider, Abstract 03/31/2025 External Device Data STL ABSTRACTION Provider, Abstract 03/31/2025 Refill [facility] Spec Surg [address] [place] [phone] Avtar Kumar MD Diverticulitis of colon without hemorrhage; Post-operative pain 03/29/2025 Orders Only [facility] [address] [place] [phone] Provider, Abstract 03/26/2025 Refill [facility] Spec Surg [address] [place] [address] [phone] Avtar Kumar MD Diverticulitis of colon without hemorrhage; Post-operative pain 03/23/2025 Telephone [facility] Gen Spec Surg [address] [place] [phone] Avtar Kumar MD Question 03/22/2025 Refill [facility] Gen Spec Surg [address] [place] [address] [phone] Avtar Kumar MD Diverticulitis of colon without hemorrhage; Post-operative pain 03/22/2025 Telephone [facility] Gen Spec Surg [address] [place] [phone] Avtar Kumar MD Question 03/18/2025 [facility] Spec Surg [address] [facility] [address] [place] [phone] Ben Hart MD Post-operative pain (Primary Dx); Diverticulitis of colon without hemorrhage 03/18/2025 Refill [facility] Gen Spec Surg [address] [place] [phone] Avtar Kumar MD Post-operative pain (Primary Dx); Diverticulitis of colon without hemorrhage 03/16/2025 External Device Data STL ABSTRACTION Provider, Abstract 03/16/2025 External Device Data STL ABSTRACTION Provider, Abstract 03/12/2025 7:20 AM CDT - 03/12/2025 10:02 AM CDT Surgery [facility] Operating Room [address] [place] [phone] Avtar Kumar MD SIGMOID COLECTOMY HAND ASSISTED LAPAROSCOPIC 03/12/2025 7:01 AM CDT Anesthesia Event [facility] Operating Room [address] [place] [phone] Geoff Luna MD Sweaney, Deanna S [facility] 03/12/2025 5:09 AM CDT - 03/14/2025 4:12 PM CDT Hospital Encounter [facility] 3B Surgical [address] [place] [phone] Avtar Kumar MD Diverticulitis Discharge Disposition: Home or Self Care 03/10/2025 Telephone [facility] Gen Spec Surg [address] [facility] [address] [place] [phone] Avtar Kumar MD Surgery (Arrival time) 03/10/2025 [facility] [address] [place] [phone] Briana Dumas DO 03/09/2025 External Device Data STL ABSTRACTION Provider, Abstract 03/09/2025 External Device Data STL ABSTRACTION Provider, Abstract 03/09/2025 Telephone [facility] 3A Surgical [address] [place] [phone] Avtar Kumar MD Nurse Navigation 02/22/2025 Telephone [facility] Gen Spec Surg [address] [facility] [address] [place] [phone] Avtar Kumar MD Pt [facility] ; hospitality room 02/19/2025 12:00 PM CDT - 02/19/2025 11:59 PM CDT Hospital Encounter [facility] Pre Admission Testing Center [place] [address] [place] [phone] Avtar Kumar MD Discharge Disposition: Home or Self Care 02/19/2025 11:30 AM CDT Office Visit [facility] Gen Spec Surg [address] [facility] [address] [phone] Avtar Kumar MD Diverticulitis of colon without hemorrhage (Primary Dx) 02/19/2025 Telephone [facility] Gen Spec Surg [address] [place] [phone] Avtar Kumar MD Sw[place] 02/19/2025 Refill [facility] [address] [place] [phone] Briana Dumas DO Abdominal pain, acute, left lower quadrant 02/19/2025 Chart Note [facility] Gen Spec Surg [address] [facility] [address] [place] [phone] Kaila Jean, [facility] Surgery 02/19/2025 Orders Only [facility] Gen Spec Surg [address] [facility] [address] [place] [phone] Avtar Kumar MD 02/16/2025 External Device Data STL ABSTRACTION Provider, Abstract 02/16/2025 Orders Only [facility] HIM [address] [place] [phone] Provider, Abstract 02/11/2025 Results Follow-Up [facility] [address] [place] [address] Pan, December, ASTHMA EDUCATOR POC URINALYSIS DIPSTICK AUTOMATED, URINE CULTURE, TSH, Additional followed-up results: 3 02/09/2025 8:00 AM CDT Office Visit [facility] [address] [place] [phone] Pandecember, ASTHMA EDUCATOR Urinary frequency (Primary Dx); Diverticulitis; Morbid obesity with BMI of 50.0-59.9, adult ([facility]) 02/09/2025 External Device Data STL ABSTRACTION Provider, Abstract 02/09/2025 External Device Data STL ABSTRACTION Provider, Abstract 02/09/2025 External Device Data STL ABSTRACTION Provider, Abstract 02/09/2025 Telephone [facility] [address] [place] [phone] Briana Dumas, DO Patient Communication 02/09/2025 Orders Only [facility] [address] [place] [phone] Briana Dumas, DO Abdominal pain, acute, left lower quadrant 02/02/2025 Refill [facility] [address] [place] [phone] Briana Dumas, DO Abdominal pain, acute, left lower quadrant 01/25/2025 Refill [facility] [address] [place] [phone] Briana Dumas, DO Abdominal pain, acute, left lower quadrant 01/22/2025 Results Follow-Up [facility] [address] [place] [phone] PanDecember, ASTHMA EDUCATOR LIPID PANEL, COMPREHENSIVE METABOLIC PANEL, TSH, CBC WITH DIFFERENTIAL 01/20/2025 Telephone [facility] [address] [place] [phone] Briana Dumas DO Provider Call 01/19/2025 External Device Data STL ABSTRACTION Provider, Abstract 01/19/2025 External Device Data STL ABSTRACTION Provider, Abstract 01/19/2025 External Device Data STL ABSTRACTION Provider, Abstract 01/18/2025 2:45 PM CDT Clinical Support [facility] [address] [place] [phone] Morbid obesity with BMI of 50.0-59.9, adult ([facility]); Acute diverticulitis 01/18/2025 Orders Only Initial Department [address] [facility] [address] BLAIR: [place] [address] Provider, Historical 01/18/2025 Refill [facility] [address] [place] [phone] Briana Dumas DO Abdominal pain, acute, left lower quadrant from Last 3 Months Immunizations Immunization Administration [...] on file Legal Sex Female 7:26 AM ACID BLOWER Gender Identity Not on file Sexual Orientation Not on file Last Filed Vital Signs Vital Sign Reading Time Taken Comments Blood Pressure 128/82 03/31/2025 10:47 AM CDT Pulse 82 03/31/2025 10:47 AM CDT Temperature 36.6 C (97.8 F) 03/31/2025 10:47 AM CDT Respiratory Rate 16 03/14/2025 8:12 AM CDT Oxygen Saturation 97% 03/31/2025 10:47 AM CDT Inhaled Oxygen Concentration - - Weight 147.9 kg (326 lb) 03/31/2025 10:47 AM CDT Height 168.9 cm (5' 6.5 ) 03/31/2025 10:47 AM CD T Body Mass Index 51.83 03/31/2025 10:47 AM CDT Plan of Treatment Upcoming Encounters Date Type Department Care Team (Latest Contact Info) Description 05/19/2025 1:20 PM CDT Hospital Encounter [facility] Endoscopy [place] [address] [place] [phone] Avtar Kumar MD [address] [place] [phone] Diverticulitis of colon without hemorrhage 05/19/2025 1:20 PM CDT - 05/19/2025 1:40 PM CDT Surgery [facility] Endoscopy [place] [address] [place] [phone] Avtar Kumar MD [address] [place] [phone] COLONOSCOPY Scheduled Procedures Name Priority Associated Diagnoses Date/Ti me COLONOSCOPY Diverticulitis of colon without hemorrhage 05/19/2025 1:20 PM CDT Health Maintenance Due Date Last Done Comments HPV VACCINES (1 - 3-dose series) 2003 HEPATITIS B VACCINES (1 of 3 - 19+ 3-dose series) 2007 Preventative Visit-Managed Medicaid 2007 INFLUENZA VACCINE (#1) 2025 , 07/21/2021, 10/16/2015 Pre-Diabetes and Diabetes Screening 08/08/202508/08 DTAP/TDAP/TD VACCINES (2 - T d or Tdap) 10/16/2025 10/16/2015 Goals Goal Patient Goal Type Associated Problems Recent Progress Patient-Stated? Author Autogenera blayne Goal Care Plan Autogenerated Problem No Briana Cali Procedures Procedure Name Priority Date/Time Associated Diagnosis Comments COMPREHENSIVE METABOLIC PANEL Routine 03/28/2025 10:37 AM CDT TELEMETRY REPORT 03/15/2025 3:52 AM CDT BASIC METABOLIC PANEL Routine 03/14/2025 4:28 AM CDT CBC WITH DIFFERENTIAL Routine 03/14/2025 4:28 AM CDT BASIC METABOLIC PANEL Routine 03/13/2025 4:27 AM CDT CBC WITH DIFFERENTIAL Routine 03/13/2025 4:27 AM CDT POC GLUCOSE Routine 03/12/2025 9:39 AM CDT PATHOLOGY Pathology 03/12/2025 8:43 AM CDT Diverticulitis of colon without hemorrhage ND ANESTHESIA BLOCK PB PLACEHOLDER CHARGE Routine 03/12/2025 8:01 AM CDT ND LAPS MOBLJ SPLENIC FLXR PFRMD W/PRTL COLECTOMY 03/12/2025 7:20 AM CDT Diverticulitis of colon without hemorrhage ND LAPS COLECTOMY PRTL W/END CLST & CLSR DSTL SGM 03/12/2025 7:20 AM CDT Diverticulitis of colon without hemorrhage ND LAPS COLECTOMY PRTL W/COLOPXTSTMY LW ANAST 03/12/2025 7:20 AM CDT Diverticulitis of colon without hemorrhage ND LAPAROSCOPY COLECTOMY PARTIAL W/ANASTOMOSIS 03/12/2025 7:20 AM [...] LIPID PANEL Routine 01/18/2025 2:40 PM CDT HEMOGLOBIN A1C Routine 08/08/2022 9:49 AM ACID BLOWER Morbid obesity with BMI of 50.0-59.9, adult (CMS/HCC) from Last 3 Months or Most Recently Relevant to Health Maintenance Results * COMPREHENSIVE METABOLIC PANEL (03/28/2025 10:37 AM CDT) Only the most recent of3 resultswithin the time period is included. Blood us Abstract Provider CHEMISTRY ORDERABLES Final Res ult * TELEMETRY REPORT (03/15/2025 3:52 AM CDT) us Provider Scanning ECG ORDERABLES Final Result * (ABNORMAL) CBC WITH DIFFERENTIAL (03/14/2025 4:28 AM CDT) Only the most recent of4 resultswithin the time period is included. WBC 16.6(H) 4.5 - 11.0 K/uL 03/14/2025 5:06 AM T [facility] RBC 4.44 4.20 - 5.40 M/uL 03/14/2025 5:06 AM T [facility] HEMOGLOBIN 13.9 12.0 - 16.0 g/dL 03/14/2025 5:06 AM T [facility] HEMATOCRIT 42.0 36.0 - 46.0 % 03/14/2025 5:06 AM [facility] MCV 94.6 84.0 - 103.0 fL 03/14/2025 5:06 AM T [facility] MCH 31.3 27.0 - 34.0 pg 03/14/2025 5:06 AM T [facility] MCHC 33.1 30.0 - 35.0 g/dL 03/14/2025 5:06 AM T [facility] PLATELETS 161 140 - 440 K/uL 03/14/2025 5:06 AM T [facility] MPV 10.6 8.9 - 12.8 fL 03/14/2025 5:06 AM [facility] RDW 12.9 11.0 - 14.5 % 03/14/2025 5:06 AM [facility] RDW-STDEV 45.1 37.0 - 54.0 fL 03/14/2025 5:06 AM [facility] NEUTROPHILS 71 42 - 75 % 03/14/2025 5:06 AM [facility] LYMPHOCYTES 22(L) 24 - 44 % 03/14/2025 5:06 AM [facility] MONOCYTES 6 2 - 10 % 03/14/2025 5:06 AM [facility] EOSINOPHILS 1 0 - 7 % 03/14/2025 5:06 AM [facility] BASOPHILS 0 0 - 1 % 03/14/2025 5:06 AM [facility] IMMATURE GRANULOCYTES 1 0 - 2 % 03/14/2025 5:06 AM [facility] NEUTROPHIL ABSOLUTE 11.75(H) 2.00 - 8.00 K/uL 03/14/2025 5:06 AM [facility] LYMPHOCYTE ABSOLUTE 3.60 1.20 - 4.00 K/uL 03/14/2025 5:06 AM [facility] MONOCYTE ABSOLUTE 0.93(H) 0.10 - 0.60 K/uL 03/14/2025 5:06 AM [facility] EOSINOPHIL ABSOLUTE 0.19 0.00 - 0.70 K/uL 03/14/2025 5:06 AM [facility] BASOPHILS ABSOLUTE 0.04 0.00 - 0.20 K/uL 03/14/2025 5:06 AM [facility] IMMATURE GRANULOCYTES ABSOLUTE 0.08 0.00 - 0.10 K/uL 03/14/2025 5:06 AM [facility] SMEAR REVIEWED: NA - Not Applicable 03/14/2025 5:06 AM [facility] Blood Venipuncture / Unknown 03/14/2025 4:28 AM CDT 03/14/2025 4:58 AM CDT Avtar Kumar MD HEMATOLOGY ORDERABLES Final Res ult [facility] CLIA # [id number] [facility] [address] [place] [address] * (ABNORMAL) BASIC METABOLIC PANEL (03/14/2025 4:28 AM CDT) Only the most recent of2 resultswithin the time period is included. SODIUM 140 136 - 145 mmol/L 03/14/2025 5:38 AM [facility] POTASSIUM 3.7 3.5 - 5.1 mmol/L 03/14/2025 5:38 AM [facility] CHLORIDE 108(H) 98 - 107 mmol/L 03/14/2025 5:38 AM [facility] CO2 23 22 - 29 mmol/L 03/14/2025 5:38 AM [facility] CALCIUM 8.5(L) 8.6 - 10.0 mg/dL 03/14/2025 5:38 AM [facility] BUN 7 6 - 20 mg/dL 03/14/2025 5:38 AM [facility] CREATININE 0.67 0.51 - 0.95 mg/dL 03/14/2025 5:38 AM [facility] GLUCOSE 90 74 - 99 mg/dL 03/14/2025 5:38 AM [facility] GFR >60 >=60 mL/min/1.7 3 sq meter 03/14/2025 5:38 AM [facility] Comment:eGFR calculated with 2020 CKD-EPI equation. Vegetarian diet, extremely high or low muscle mass, and may affect results. Cystatin C with Glomerular Filtration Rate is a suitable alternative for these patients. ANION GAP 9 9 - 20 mmol/L 03/14/2025 5:38 AM [facility] Blood Venipuncture / Unknown 03/14/2025 4:28 AM CDT 03/14/2025 4:59 AM CDT Avtar Kumar MD CHEMISTRY ORDERABLES Final Resu lt Performing Organization Address [facility] Co de Phone Number [facility] CLIA # [id number] [id number] [place], [place] [address] * (ABNORMAL) POC GLUCOSE (03/12/2025 9:39 AM CDT) GLUCOSE POC 139(H) 74 - 99 mg/dL 03/12/2025 9:39 AM CDT [facility] SPECIMEN SOURCE, GLUCOSE POC Capillary 03/12/2025 9:39 AM CDT [facility] Blood, whole 03/12/2025 9:39 AM CDT 03/12/2025 9:48 AM CDT Avtar Kumar MD POINT OF CARE TESTING Final Res ult Performing Organization Address [facility] Co de Phone Number [facility] CLIA # [id number] [address] [address] * PATHOLOGY (03/12/2025 8:43 AM CDT) CASE REPORT Surgical Pathology Report Case: [id number] Authorizing Provider: Avtar Kumar MD Collected: 03/12/2025 08:43 AM Ordering Location: [facility] Received: 03/12/2025 09:39 AM Operating Room Pathologist: Cosmo Arzola MD Specimen: Colon, sigmoid 3:41 PM CDT [facility] FINAL DIAGNOSIS A. Sigmoid colon, segmental resection - Diverticular disease - Adenomatous polyp - Viable resection margins Cosmo Arzola MD [id number] 3:41 PM CDT [facility] at 1541 CDT GROSS DESCRIPTION A. [...] obvious abscess, perforation or inflammatory debris identified. Bus Operator sections are submitted as follows: A1-proximal margin, en face A2-distal margin, en face A3-pedunculated polyp A4-intact diverticulum [id number] bowel wall with serosal adhesions, Isis Lobo 5 3:41 PM [facility] OPERATIVE PROCEDURE 1: SIGMOID COLECTOMY HAND ASSISTED LAPAROSCOPIC 2: SPLENIC FLEXURE MOBILIZATION LAPAROSCOPIC 5 3:41 PM [facility] CLINICAL INFORMATION A [id number] Diverticulitis of colon without hemorrhage K57.32-Diverticulitis of colon without hemorrhage 5 3:41 PM T [facility] COMMENT The DrDoctor voice-activated dictation system may have been used [...] determined by the [facility]ohist[facility] of [facility] in compliance with CLIA'88 regulations. Some of these tests rely on the use of analyte specific reagents and are subject to specific labeling requirements by the FDA. All controls show appropriate reactivity. This testing was developed by the [facility]ohist[facility] of [facility]. It has not been cleared or approved by the FDA. The FDA has determined that such clearance or approval is not necessary. 3:41 PM CDT [facility] Tissue SIGMOID COLON STRUCTURE / Unknown Collection / Unknown 03/12/2025 8:43 AM CDT 03/12/2025 9:39 AM CDT Comment:[id number] Avtar Kumar MD PATHOLOGY/CYTOLOGY ORDERABLES F inal Result [facility] CLIA # [id number] [address] [address] [place] [address] * ND ANESTHESIA BLOCK PB PLACEHOLDER CHARGE (03/12/2025 8:01 [...] Approach: Midline Location: L3-4 Injection Technique: Single-shot [place] Identification: palpation technique Number of Attempts: 1 Spinal Needle Needle type: Pencil-tip Needle gauge: 25 G Needle length: 10 cmCSF visualized Assessment Sensory Level: T5 No paresthesia Events: easy and well tolerated Outcome: Complete Additional Notes Attx1. No complications. 150mc Duramorph Geoff Luna MD PROCEDURE/MINOR SURGICAL ORDE RABLES Final Result * VERIFICATION BLOOD GROUP (02/19/2025 1:06 PM CDT) ABO GROUP A 02/19/2025 2:55 PM CDT [facility] [place] RH (D) TYPE Negative 02/19/2025 2:55 PM CDT [facility] [place] Blood BLOOD SPECIMEN / Unknown Venipuncture / Unknown 02/19/2025 1:06 PM CDT 02/19/2025 2:14 PM CDT Avtar Kumar MD BLOOD BANK ORDERABLES Final Res ult Performing Organization Address [facility] Co de Phone Number [facility] [place] CLIA#[id number] [address] [place] [address], * TYPE AND SCREEN (02/19/2025 12:20 PM CDT) Pathologist [facility] ABO GROUP A 02/19/2025 3:59 PM CDT [facility] [place] RH (D) TYPE Negative 02/19/2025 3:59 PM CDT [facility] [place] ANTIBODY SCREEN Negative 02/19/2025 3:59 PM CDT [facility] [place] Blood Venipuncture / Unknown 02/19/2025 12:20 PM CDT 02/19/2025 2:14 PM CDT Avtar Kumar MD BLOOD BANK ORDERABLES Edited Re sult - Final Performing Organization Address [facility] Co de Phone Number [facility] [place] CLIA#[id number] [address] [place] [address], * TSH (02/09/2025 8:58 AM CDT) Only the most recent of2 resultswithin the time period is included. TSH 1.41 mIU/L [facility] Comment: Reference Range > or = 20 Years 0.40-4.50 Ranges First trimester 0.26-2.66 Second trimester 0.55-2.73 Third trimester 0.43-2.91 FASTING:UNKNOWN FASTING: UNKNOWN Test Performed at: [facility] [address] [facility] [place] [address] Natasha Bains MD Blood 02/09/2025 8:58 AM CDT 02/09/2025 8:58 AM CDT December [facility] CHEMISTRY ORDERABLES Final Resul t [facility] [phone] [facility] [address] * (ABNORMAL) LIPID PANEL (02/09/2025 8:58 AM CDT) Only the most recent of2 resultswithin the time period is included. CHOLESTEROL 163 <200 mg/dL [facility] HDL 37(L) > OR = 50 mg/dL [facility] TRIGLYCERIDE 125 <150 mg/dL [facility] LDL CALCULATED 103(H) mg/dL (calc) [facility] Comment: Reference range: <100 Desirable range <100 mg/dL for primary prevention; <70 mg/dL for patients with CHD or diabetic patients with > or = 2 CHD risk factors. LDL-C is now calculated using the David-Mcdonald calculation, which is a validated novel method providing better accuracy than the Friedewald equation in the estimation of LDL-C. David SS et al. VEL. 2013;310(19): 7876-6271 (http://education.Specialized Pharmaceuticalss/faq/NFY314) CHOL/HDL RATIO 4.4 <5.0 (calc) [facility] NON-HDL CHOLESTEROL 126 <130 mg/dL (calc) [facility] Comment: For patients with diabetes plus 1 major ASCVD risk factor, treating to a non-HDL-C goal of <100 mg/dL (LDL-C of <70 mg/dL) is considered a therapeutic option. Test Performed at: [facility] [address] [place] [address] Natasha Bains MD Blood 02/09/2025 8:58 AM CDT 02/09/2025 8:58 AM CDT December [facility] CHEMISTRY ORDERABLES Final Resul t Performing Organization Address City/[facility] Co de Phone Number [facility] [phone] [facility] [address] [place] [address] * URINE CULTURE (02/09/2025 8:39 AM CDT) URINE CULTURE SEE NOTE [facility] Comment: CULTURE, URINE, ROUTINE Micro Number: [id number] Test Status: Final Specimen Source: Urine, clean catch Specimen Quality: Adequate Result: Mixed genital ronal isolated. These superficial bacteria are not indicative of a urinary tract infection. No further organism identification is warranted on this specimen. If clinically indicated, recollect clean-catch, mid-stream urine and transfer immediately to Urine Culture Transport Tube. Test Performed at: [facility] [id number] [place] [address] Natasha Bains MD Urine URINE SPECIMEN OBTAINED BY CLEAN CATCH PROCEDURE / Unknown 02/09/2025 8:39 AM CDT 02/10/2025 3:31 AM CDT December [facility] MICROBIOLOGY - GENERAL ORDERABLE S Final Result Performing Organization Address [facility] de Phone Number [facility] [phone] [facility] [address] [place] [address] * (ABNORMAL) POC URINALYSIS DIPSTICK AUTOMATED (02/09/2025 8:28 AM CDT) COLOR UA POC Yellow Pale to Dark Yellow [facility] CLARITY UA POC Clear Clear, Other ME [facility] GLUCOSE UA POC Negative Negative, Normal [facility] BILIRUBIN UA POC Negative Negative [facility] KETONES UA POC Negative Negative [facility] SPECIFIC GRAVITY UA POC 1.020 1.000 - 1.030 [facility] BLOOD UA POC 2+(A) Negative [facility] C LINIC [facility] PH UA POC 7.0 5.0 - 8.0 [facility] CLIN IC [facility] PROTEIN UA POC Negative Negative [facility] UROBILINOGEN UA POC 0.2 <2.0 mg/dL [facility] NITRITE UA POC Negative Negative [facility] LEUKOCYTE ESTERASE UA POC Negative Negative [facility] KIT LOT NUMBER POC [phone] [facility] KIT EXP DATE POC [id number] [facility] Urine 02/09/2025 8:28 AM CDT December Pan [facility] POINT OF CARE TESTING Final Resu lt Performing Organization Address City/[facility] Co de Phone Number [facility] CLIA# [id number] [address] [place] [address] * TEST IN QUESTION (01/18/2025 2:40 PM CDT) COMMENT [facility] Comment: Identification of test requisition and/or specimen(s) was questionable. The below named individual provided this revised patient identification. CONTACT DR ALVARO Zuluaga [facility] TESTS AFFECTED ALL TESTS [facility] Comment: FASTING: UNKNOWN Test Performed at: [facility] [address] [place] [address] Natasha Bains MD 01/18/2025 2:40 PM CDT 01/21/2025 2:20 PM CDT December Pan [facility] CHEMISTRY ORDERABLES Final Resul t Performing Organization Address City/[facility]/ZIP Co de Phone Number [facility] [phone] [facility] [address] [address] [address] * HEMOGLOBIN A1C (08/08/2022 9:49 AM ACID BLOWER) HEMOGLOBIN A1C 5.3 <5.7 % of total Hgb [facility] Comment: For the purpose of screening for the presence of diabetes: <5.7% Consistent with the absence of diabetes 5.7-6.4% Consistent with increased risk for diabetes (prediabetes) > or =6.5% Consistent with diabetes This assay result is consistent with a decreased risk of diabetes. Currently, no consensus exists regarding use of hemoglobin A1c for diagnosis of diabetes in children. According to [place] Diabetes Association (ADA) guidelines, hemoglobin A1c <7.0% represents optimal control in non- diabetic patients. Different metrics may apply to specific patient populations. Standards of Medical Care in Diabetes(ADA). ESTIMATED AVERAGE GLUCOSE (MG/DL) 105 mg/dL [facility] ESTIMATED AVERAGE GLUCOSE (MMOL/L) 5.8 mmol/L [facility] Comment: Test Performed at: [facility] [address] [place] [address] Micah Lambert D.O., MPH Blood 08/08/2022 9:49 AM ACID BLOWER 08/09/2022 3:35 AM ACID BLOWER us Janine Lambert ASTHMA EDUCATOR CHEMISTRY ORDERABLES Final Re sult [facility] [phone] [facility] [address] [place] [address] from Last 3 Months or Most Recently Relevant to Health Maintenance Additional Health Concerns Active Problems Noted Date Diagnosed Date Autogenerated Problem 04/02/2025 Insurance [facility] [id number] RX INFOCROSSING Medicaid KATHY Advance Directives For more information, please contact: [phone] * Full Code (Latest Code Status on File) Date Activated Date Inactivated Comments 03/12/2025 10:36 AM 03/14/2025 6:12 PM * Full Code Date Activated Date Inactivated Comments 03/12/2025 5:22 AM 03/12/2025 10:36 AM Care Teams Cone Machine Feeder Relationship Specialty Start Date End Date Briana Dumas DO [address] [place] [phone] PCP - General Family Practice 07/21/21
--- OUTSIDE RECORDS SUMMARY | 2025-04-16 07:53 | XMS_ITS | Encounter Summary ---
Author Organization [facility] Address [address] [place] [address] Care Team Providers Care Counsel Name Role Phone Briana Dumas DO Primary Care Provider [phone] Reason for Visit * Reason Comments Patient Communication Encounter Details Date Type Department Care Team (Late st Contact Info) Description 02/09/2025 Telephone [facility] [place] [facility] [address] [place] [phone] Briana Dumas DO [address] [place] [address] Patient Communication Social History Tobacco Use Types Packs/Day Years Used Date Smoking Tobacco: Every Day Cigarettes Passive Smoke Exposure: Current Smokeless Tobacco: Never Alcohol Use Standard Drinks/Week Comments No 0 (1 standard drink = 0.6 oz pur e alcohol) Comments No Sex and Gender Information Value Date Recorded Sex Assigned at Not on file 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 Topic: CPA Information Request >> February 09, 2025 9:32 AM John Davila wrote: Caller is returning phone call from clinic. Caller Name: Ivy HIGGINS Patient/Caregiver Callback Number: [phone] (mobile) Clinic Did Not Leave Note In Chart Call Notes: Patient/Caller returning call, no note documented with instructions from clinic. Transferred to [facility] Line and Shannon answered call. documented in this encounter Plan of Treatment Upcoming Encounters Date Type Department Care Team (Latest Contact Info) Description 05/19/2025 1:20 PM CDT Hospital Encounter [facility] [place] [address] [place] [address] [place] [phone] Avtar Kumar MD [address] [place] [address] [place] [phone] Diverticulitis of colon without hemorrhage 05/19/2025 1:20 PM CDT - 05/19/2025 1:40 PM CDT Surgery [facility] [place] [address] [place] [address] [place] [phone] Avtar Kumar MD [address] [address] COLONOSCOPY Scheduled Procedures Name Priority Associated Diagnoses Date/Ti me COLONOSCOPY Diverticulitis of colon without hemorrhage 05/19/2025 1:20 PM CDT documented as of this encounter Visit Diagnoses Not on filedocumented in this encounter Additional Health Concerns Assessment Noted Time PHQ-9 Depression Total Score: 2 02/10/20 25 7:58 AM CDT documented as of this encounter Care Teams Counsel Relationship Specialty Start Date End Date Briana Dumas DO [address] [place] [phone] PCP - General Family Practice 07/21/21 documented as of this encounter
--- NOTE | 2025-04-16 07:54 | XRR_ITS ---
PROCEDURE INFORMATION: Exam: XR Chest Exam date and time: 04/16/2025 7:59 AM Age: 35 years old Clinical indication: Cough and dyspnea; Additional info: Dyspnea/cough TECHNIQUE: Imaging protocol: Radiologic exam of the chest. Views: 1 view. COMPARISON: CT angio chest PE protcl [id number] 11/06/2024 1:24 PM FINDINGS: Lungs: Unremarkable. No consolidation. Pleural spaces: Unremarkable. No pleural effusion. No pneumothorax. Heart/Mediastinum: See Vasculature finding. Vasculature: Mild cardiomegaly and uncoiling of the thoracic aorta each accentuated by the AP positioning. Bones/joints: Unremarkable. XR/XR chest 1V portable [id number] IMPRESSION: No acute findings.
--- NOTE | 2025-04-16 08:05 | ED_ITS ---
HPI - Chest Pain 2 General: Chief Complaint: Chest Pain Stated Complaint: chest pain Time Seen by Provider: 04/16/25 07:52 History of Present Illness: 35-year-old female presents emergency ro om with complaints of chest pain that began 30 minutes ago. Patient describes a retrosternal pain that is worse when she takes a deep breath. He has a burning sensation that radiates up to her throat does not radiate into her back or into her arms. She is very slightly tachypneic. Patient has no history of DVT or PE however she had a colon resection 5 weeks ago. She states she has returned to her normal activity level she does not have any difficulty with eating or bowel movements. She is not on any anticoagulants. No history of arrhythmias or coronary artery disease Associated symptoms: Deny abdominal pain, dyspnea or fever(s) Related Data Home Medications ?Medication ?Instructions ?Recorded ?Confirmed acetaminophen 500 mg tablet 1,000 mg PO Q6H PRN Pain 1 10/04/23 04/16/25 (Tylenol Extra Strength) ondansetron 4 mg disintegrating 4 mg PO Q8H PRN nausea /emesis 12/28/24 04/16/25 tablet tirzepatide (weight loss) 2.5 2.5 mg SUBCUT Q7D 04/16/25 mg/0.5 mL subcutaneous pen injector (Zepbound) Previous Rx's ?Medication ?Instructions ?Recorded albuterol sulfate 90 mcg/actuation 2 puff inhalation Q 6H PRN 10/27/24 aerosol inhaler shortness of breath or wheez ing #8.5 grams promethazine 25 mg tablet 25 mg PO Q6H PRN nausea and 12/28/24 vomiting #20 tabs hydrocodone 5 mg-acetaminophen 325 1 tab PO Q6H PRN pa in #15 tabs 04/16/25 mg tablet pantoprazole 40 mg tablet,delayed 40 mg PO DAILY 4 wee ks #30 tabs 04/16/25 release Allergies Allergy/AdvReac Type Severity Reaction Status Date / Time cephalexin (From Keflex) Allergy Unknown Verified 04/16/25 07:54 Sulfa (Sulfonamide Allergy Unknown Verified 04/16/25 07:54 Antibiotics) sulfamethoxazole (From Allergy Unknown Verified 04/16/25 07:54 Bactrim) tramadol Allergy ADR-Swelling Verified 04/16/25 07:54 of the Eye trimethoprim (From Bactrim) Allergy Unknown Verified 04/16/25 07:54 ketorolac (From Toradol) AdvReac ADR-Swelling Verified 04/16/25 07:54 of the Eye/ SWEATING Review of Systems 2 Const: Denies: fever(s) or chills Card: Denies: chest pain Resp: Denies: dyspnea GI: Denies: abdominal pain : Denies: dysuria, urinary frequency or urinary urgency Musc: Denies: neck pain or back pain Skin/Breast: Denies: rash PFSH ED 2 PFSH: Medical History Hemorrhagic cyst of left ovary Demyelinating disease of central nervous system Rheumatoid arthritis Chronic migraine without aura, intractable, with status migrainosus Immunization counseling High risk medication use Positive LOKESH (antinuclear antibody) Inflammatory arthritis Epidermoid cyst of face surgically removed Anxiety Depression Stomach ulcer No pertinent past medical history Surgical History H/O tubal ligation History of cholecystectomy History of appendectomy History of delivery History of hysterectomy History of tonsillectomy Family History Mother Colon cancer Diabetes Hyperlipidemia Hypertension Stroke Heart disease Father Diabetes Hypertension Thyroid disease Denies family history of Clotting disorder Chronic kidney disease (CKD) Bleeding disorder Social History Smoking and tobacco/nicotine status: never used tobacco/nicotine Substance/Drug Use: never Physical Exam 2 Const: COMMON NORMALS: no acute distress GENERAL APPEARANCE: cooperative and comfortable ORIENTATION/CONSCIOUSNESS: Yes awake, Yes oriented to person, Yes oriented to place and Yes oriented to time HENMT: COMMON NORMALS: normocephalic, atraumatic and hearing grossly normal bilaterally HEAD & SCALP: normocephalic and atraumatic Resp: COMMON NORMALS: normal respiratory effort, No retractions, No use of accessory muscles and clear to auscultation bilaterally AUSCULTATION: clear to auscultation bilaterally Cardio: COMMON NORMALS: regular rate, regular rhythm and No murmurs present (Cardio) RATE: regular rate RHYTHM: regular rhythm GI: COMMON NORMALS: Soft to palpation and No hepatosplenomegaly present A USCULTATION: Yes normoactive bowel sounds PALPATION: Yes Soft to palpation, No Tenderness to palpation present (GI), No Guarding due to palpation present (GI) and Yes No hepatosplenomegaly present Extremity: COMMON NORMALS: normal to inspection, capillary refill normal, no clubbing, cyanosis or edema, no calf tenderness and no pedal edema Neuro: SENSORIUM/ORIENTATION: Yes oriented to person, Yes oriented to place and Yes oriented to time Skin: COMMON NORMALS: no rashes or lesions noted GENERAL SKIN EXAM: no rashes or lesions noted Course 2 Vital Signs: Vital signs: Vital Signs Temperature 97.9 F 04/16/25 07:50 Pulse Rate 87 04/16/25 08:30 Respiratory Rate 14 04/16/25 12:45 Blood Pressure 146/89 04/16/25 08:30 Pulse Oximetry 97 04/16/25 08:30 Oxygen Delivery Me thod Room Air 04/16/25 08:30 MDM - Chest Pain Medical Decision Making Extensive workup cardiac enzymes and EKG do not show any acute changes CT of the chest shows no pneumonia no PA no pneumothorax no sign of a dissecting aneurysm suspect patient is having esophagitis reflux she has not been taking her Zepbound for the last 6 weeks I do not believe that would be the cause. Will start her on Protonix and give her hydrocodone to use as needed. Medical Records I reviewed the patient's medical records. Lab Data I reviewed the patient's lab results. 04/16/25 08:03 04/16/25 08:03 Radiology Impressions Chest X-Ray 04/16/25 07:54 IMPRESSION: No acute findings. Chest CTA 04/16/25 08:34 IMPRESSION: 1. No evidence for pulmonary embolus. 2. Lungs are well aerated. 3. Prior cholecystectomy 4. LEFT heart enlargement unchanged compared to previous Laboratory Results WBC 12.14 10^3/uL (3.29-11.43) H 04/16/25 08:03 RBC 4.91 10^6/uL (3.85-5.65) 04/16/25 08:03 Hgb 15.10 g/dL (11.27-16.99) 04/16/25 08:03 Hct 46.0 % (36-47) 04/16/25 08:03 MCV 93.7 fl (85-98) 04/16/25 08:03 MCH 30.8 pg (27-33) 04/16/25 08:03 MCHC 32.8 g/dL (30-55) 04/16/25 08:03 RDW 12.9 % (12.1-15.1) 04/16/25 08:03 Plt Count 215 10^3/cmm (157-399) 04/16/25 08:03 MPV 10.4 fL (7.4-10.4) 04/16/25 08:03 Neut % (Auto) 58.3 % 04/16/25 08:03 Lymph % (Auto) 33.3 % 04/16/25 08:03 [place] % (Auto) 5.4 % 04/16/25 08:03 Eos % (Auto) 2.3 % 04/16/25 08:03 Baso % (Auto) 0.4 % 04/16/25 08:03 Neut # (Auto) 7.08 10^3/uL (1.8-7.7) 04/16/25 08:03 Lymph # (Auto) 4.0 10^3/uL (0.8-4.8) 04/16/25 08:03 [place] # (Auto) 0.7 10^3/uL (0.2-0.9) 04/16/25 08:03 Eos # (Auto) 0.3 10^3/uL (0.0-0.8) 04/16/25 08:03 Baso # (Auto) 0.1 10^3/uL (0.0-0.1) 04/16/25 08:03 Nucleated RBC % (auto) 0 % 04/16/25 08:03 Nucleated RBCs # 0.0 /100WBC 04/16/25 08:03 D-Dimer 1.13 ug/mLFEU (0-0.59) H 04/16/25 08:02 Sodium 136 mmol/L (136-145) 04/16/25 08:03 Potassium 3.7 mmol/L (3.5-5.1) 04/16/25 08:03 Chloride 101 mmol/L (98-107) 04/16/25 08:03 Carbon Dioxide 22 mmol/L (22-29) 04/16/25 08:03 Anion Gap 16.7 (5-19) 04/16/25 08:03 BUN 9 mg/dL (6-20) 04/16/25 08:03 Creatinine 0.7 mg/dL (0.5-0.9) 04/16/25 08:03 GFR Calculation 94.2 mL/min (90-130) 04/16/25 08:03 Glucose 109 mg/dL (65-115) 04/16/25 08:03 Calculated Osmolality 281 mOsm/kg (285-295) L 04/16/25 08:03 Calcium 8.4 mg/dL (8.5-10.5) L 04/16/25 08:03 Total Bilirubin 0.4 mg/dL (0.15-1.2) 04/16/25 08:03 AST 16 U/L (0-32) 04/16/25 08:03 ALT 22 U/L (0-33) 04/16/25 08:03 Alkaline Phosphatase 89 U/L (35-105) 04/16/25 08:03 Troponin T Baseline < 6 ng/L (0-10) 04/16/25 08:03 Troponin T 120 Minute < 6.0 ng/L (0-10) 04/16/25 09:39 Delta Troponin T 0 ABS# (0-10) 04/16/25 09:39 Total Protein 6.9 g/dL (6.6-8.7) 04/16/25 08:03 Albumin 3.3 g/dL (3.5-5.2) L 04/16/25 08:03 Globulin 3.6 g/dL (1.3-4.6) 04/16/25 08:03 Urine Color Yellow (Yellow) 04/16/25 09:29 Urine Appearance Clear (CLEAR) 04/16/25 09: Urine pH 5.5 (5-7) 04/16/25 09: Ur Specific [place] 1.078 (1.005-1.030) H 04/16/25 09: Urine Protein Negative (Negative) 04/16/25 09: Urine Glucose (UA) Negative (Normal) 04/16/25 09: Urine Ketones Negative (Negative) 04/16/25 09: Urine Blood 1+ (Negative) A 04/16/25 09: Urine Nitrate Negative (Negative) 04/16/25 09:29 Urine Bilirubin Negative (Negative) 04/16/25 09:29 Urine Urobilinogen 1.0 mg/dL (Negative) 04/16/25 09:29 Ur Leukocyte Esterase Negative (Negative) 04/16/25 09:29 Urine RBC 6-10 /hpf (0-2) 04/16/25 09:29 Urine WBC 0-5 /hpf (0-5) 04/16/25 09:29 Ur Squamous Epith Cells 0-5 /hpf (0-5) 04/16/25 09:29 Amorphous Sediment Not Reportable 04/16/25 09:29 Urine Bacteria None seen /hpf (NONE) 04/16/25 09:29 Hyaline Casts 2.46 /lpf 04/16/25 09:29 All radiology interpretation(s) finalized by discharge EKG Data EKG 1: Interpretation: 04/16/2025 749 EKG shows sinus rhythm with a rate of 75. Normal 142 QTc 398[address] No acute [address] changes no elevation or depression. No clinically significant change from November 06, 2024 EKG 2: Interpretation: EKG 04/16/2025 9:51 AM sinus rhythm rate of 77 [place] interval 143 QTc 424 there is no acute ST elevation or depression no significant abnormality. Compared EKG done earlier same day no changes EKG 3: Interpretation: EKG 04/16/2025 1406 sinus rhythm rate 73 [place] interval 144 QTc [address] changes noted no ST elevation or depression. Compared to EKG done earlier same day no changes Discharge Plan Discharge Patient Disposition: Home Clinical Impression: Atypical chest pain Condition: Stable Prescriptions: New hydrocodone-acetaminophen 5-325 mg tablet 1 tab PO Q6H PRN (Reason: pain) Qty: 15 0RF pantoprazole 40 mg tablet,delayed release (DR/EC) 40 mg PO DAILY 28 Days Qty: 30 0RF No Action albuterol sulfate 90 mcg/actuation HFA aerosol inhaler 2 puff inhalation Q6H PRN (Reason: shortness of breath or wheezing) Qty: 8.5 0RF ondansetron 4 mg tablet,disintegrating 4 mg PO Q8H PRN (Reason: nausea/emesis) promethazine 25 mg tablet 25 mg PO Q6H PRN (Reason: nausea and vomiting) Qty: 20 0RF Zepbound 2.5 mg/0.5 mL pen injector 2.5 mg SUBCUT Q7D acetaminophen [Tylenol Extra Strength] 500 mg Tablet 1,000 mg PO Q6H PRN (Reason: Pain) Discharge Orders: Discharge ED (Routine); Ordered 04/16/25 Ordered By: Raghu Mcleod Referrals: Briana Dumas, DO [Primary Care Provider, [facility]] Discharge Diet: Usual diet Discharge Activity: Increase activity as tolerated Patient Instructions: Opioid Safety, Pain Management, Patient Portal & Michael Instructions Activity Restrictions/Additional Instructions: Thank you for choosing [facility] for your healthcare needs today. It is very important that you follow up as instructed or that you return to the Emergency Department should you have concerns or if your condition changes or worsens in any way. You were seen in the emergency room with complaints of chest discomfort. CTA of your chest was negative for blood clot there is no pneumonia or pneumothorax no dissecting aneurysm. EKG did not show any abnormalities. Your troponins were normal. The most serious potential causes of chest pain are ruled out. At this point we will treat your pain to suspect this more GI in nature. Also recommend you start on pantoprazole. May consider holding this Zepbound as that can cause some significant stomach upset as well. Print Language: Estonian Coding Level of Care Code ED Farm Manager for Jessica Cassidy
[2025-04-16 08:10] LABS: Hematocrit 46.0 % (36-47); Hemoglobin 15.10 g/dL (11.27-16.99); Mean Corpuscular HGB Conc 32.8 g/dL (30-55); Mean Corpuscular Hemoglobin 30.8 pg (27-33); Mean Corpuscular Volume 93.7 fl (85-98); Nucleated Red Blood Cells % 0 %; Platelet Count 215 10^3/cmm (157-399); Red Blood Count 4.91 10^6/uL (3.85-5.65); White Blood Count 12.14 10^3/uL (3.29-11.43)
[2025-04-16 08:28] LABS: Alanine Aminotransferase 22 U/L (0-33); Albumin Level 3.3 g/dL (3.5-5.2); Alkaline Phosphatase 89 U/L (35-105); Anion Gap 16.7 (5-19); Aspartate Amino Transferase 16 U/L (0-32); Blood Urea Nitrogen 9 mg/dL (6-20); Calcium 8.4 mg/dL (8.5-10.5); Carbon Dioxide 22 mmol/L (22-29); Chloride 101 mmol/L (98-107); Creatinine Clr Calc Pharmacy 162.9771; Globulin 3.6 g/dL (1.3-4.6); Glucose 109 mg/dL (65-115); Osmolality Calculated 281 mOsm/kg (285-295); Potassium 3.7 mmol/L (3.5-5.1); Sodium 136 mmol/L (136-145); Total Protein 6.9 g/dL (6.6-8.7)
[2025-04-16 08:29] LABS: Troponin(5th) Baseline < 6 ng/L (0-10)
[2025-04-16] MEDS: lidocaine 2% viscous 15 ML, aluminum-mag hydrox-simethicon 30 ML, sucralfate oral liq 1 GM PO (08:30)
--- NOTE | 2025-04-16 08:34 | CT_ITS ---
WS: [id number] CTA OF THE CHEST WITH PULMONARY EMBOLISM PROTOCOL TECHNIQUE: High-resolution contrast enhanced CTA of the chest with coronal and sagittal reformatted images with pulmonary embolism protocol. MIP images are also reviewed. CLINICAL INFORMATION: Chest pain shortness of breath COMPARISON: 11/06/2024 DLP: 531.[address] scans at [facility] use at least one of these dose optimization techniques: automated exposure control; mA and/or kV adjustment per patient size (includes targeted exams where dose is matched to clinical indication); or iterative reconstruction. FINDINGS: Normal proximal main pulmonary arteries. Normal segmental and subsegmental pulmonary arteries. No evidence of pulmonary embolus. Lungs are well aerated. No acute pulmonary infiltrates. Enlarged LEFT ventricle unchanged. Normal caliber thoracic aorta. Normal caliber descending thoracic aorta. Celiac and SMA are patent. LEFT adrenal nodule likely adenoma measuring 1.7 cm. Cholecystectomy clips. Normal GE junction. CT/CT angio chest PE protcl [id number] IMPRESSION: 1. No evidence for pulmonary embolus. 2. Lungs are well aerated. 3. Prior cholecystectomy 4. LEFT heart enlargement unchanged compared to previous
[2025-04-16] MEDS: iohexol 350 mg/mL 500 mL Btl (per mL) IV (09:02)
[2025-04-16 09:24] LABS: Slide Review Slide Review Perform
[2025-04-16 09:39] LABS: Glucose Urine UA Negative (Normal); Nitrate Urine Negative (Negative)
[2025-04-16 09:42] LABS: Add Urine Microscopic? YES
--- NOTE | 2025-04-16 09:54 | ECG_ITS ---
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
[2025-04-16 10:13] LABS: Specific Gravity, Urine 1.078 (1.005-1.030); UA Slide Review UA Slide Review Perf
[2025-04-16 10:14] LABS: Troponin 5 2HR < 6.0 ng/L (0-10); Troponin 5 2HR Delta 0 ABS# (0-10)
[2025-04-16] MEDS: morphine 4 mg/mL SDV 1 mL IVP (11:10)
[2025-04-16] MEDS: ondansetron 2 mg/ML SDV 2 mL 4 MG IVP (11:11)
[2025-04-16] MEDS: fentaNYL 50 mcg/mL INJ 2mL IVP (12:45)
--- NOTE | 2025-04-16 13:54 | ECG_ITS ---
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
== END 2025-04-16 14:55 | disposition home or self-care (01) ==
PROVIDERS: Emergency Provider Family Medicine; PCP Family Medicine
DX: R07.89 Other chest pain (principal)
CPT/HCPCS: 36415; 71045; 71275; 80053; 81001; 84484; 85025; 85378; 93005; 96374; 96375; 99285; J2270; J2405; J3010; J9999

== ENCOUNTER 2025-06-04 11:05 | Emergency (ER) | payer MEDICAID, SELFPAY ==
--- OUTSIDE RECORDS SUMMARY | 2025-06-04 11:13 | XMS_ITS | Clinical Summary ---
Author Organization [facility] Address [address] [place] [address] Phone Care Team Providers Care [place] Hardware Installer Name Role Phone Briana Dumas Primary Care [...] as needed for Pain. 20 Tablet 0 02/03/20 21 Active ASCORBIC ACID, VITAMIN C, ORAL Take by mouth. Active CALCIUM CARBONATE-VITAMI N D3 ORAL Take by mouth. Activ e ZINC GLUCONATE ORAL Take by mouth. Activ e adalimumab (Humira) 40 mg/0.8 mL Syringe Kit Inject 40 mg by subcutaneous injection every 7 days. Active albuterol sulfate HFA 90 mcg/actuation aerosol inhalerIndicatio ns:Wheezing on both sides of chest Take 2 Puffs by inhalation every 6 hours as needed for Shortness of Breath. 8.5 Gram 3 08/19/20 23 Active hydroCHLOROthiaz waqas 25 mg tabletIndication s:Bilateral edema of lower extremity,Essent ial hypertension Take 0.5-1 Tablets (12.5-25 mg) by mouth daily. 30 Tablet 5 08/19/20 23 Active lisinopriL (PRINIVIL) 20 mg tabletIndication s:Hypertension, essential Take 1 Tablet (20 mg) by mouth daily. 90 Tablet 3 08/19/20 23 Active citalopram (CeleXA) 10 mg tabletIndication s:Mild episode of depression Take 1 Tablet (10 mg) by mouth daily. 30 Tablet 08/19/20 23 Active Additional Information Patient not taking.Reported on 02/19/2025 rimegepant (Nurtec ODT) 75 mg Tablet, Rapid DissolveIndicati ons:Chronic migraine with aura without status migrainosus, not intractable Take 1 Tablet (75 mg) by mouth daily. 9 Tablet 6 11/05/19 24 Active hyoscyamine 0.[address] 1 Tablet (0.125 mg) under tongue every 4 hours as needed for Other (See Comment) (abdominal pain). 30 Tablet 1 12/09/19 24 Active meloxicam (MOBIC) 15 mg tablet Take 1 Tablet (15 mg) by mouth daily. 30 Tablet 1 02/17/20 24 Active nystatin (MYCOSTATIN) 100,000 unit/gram CreamIndications :Candidiasis of skin Apply to affected area 2 times daily. 30 Gram 1 03/17/20 24 Active nicotine (NICODERM CQ) 21 mg/24 hr patchIndications :Encounter for smoking cessation counseling Apply 1 Patch to skin as directed every 24 hours. 28 Patch 01/05/20 25 Active oxyCODONE-acetam inophen (PERCOCET) 7.5-325 mg TabletIndication s:Abdominal pain, acute, left lower quadrant Take 1 Tablet by mouth every 8 hours as needed for Pain, Moderate. Max Daily Amount: 3 Tablets 20 Tablet 02/10/20 25 Active metroNIDAZOLE (FLAGYL) 500 mg tablet Day before surgery, take 1 tablet by mouth at 1pm, 2pm, and 10pm. 3 Tablet 02/20/20 25 Active neomycin (MYCIFRADIN) 500 mg tablet Day before surgery, take 2 tablets at 1pm, 2pm, and 10pm. 6 Tablet 02/20/20 25 Active sodium, potassium and magnesium SULFATES (Suprep Bowel Prep Kit) 17.5-3.13-1.6 gram Recon Soln Follow directions from the clinic 354 mL 04/02/20 25 Active ondansetron (ZOFRAN ODT) 4 mg Tablet, Rapid DissolveIndicati ons:Nausea and vomiting, unspecified vomiting type Take 1 Tablet (4 mg) by mouth every 8 hours as needed for Nausea/Emesis. Dissolve tablet on top of tongue, then swallow with saliva. 30 Tablet 2 04/05/20 25 Active oxyCODONE-acetam inophen (Percocet) 5-325 mg tabletIndication s:Diverticulitis of colon without hemorrhage,Post- operative pain Take 1 Tablet by mouth every 4 hours as needed for Pain, Moderate. Max Daily Amount: 6 Tablets 30 Tablet 04/07/20 25 Active oxyCODONE-acetam inophen (Percocet) 5-325 mg tabletIndication s:Diverticulitis of colon without hemorrhage,Post- operative pain Take 1 Tablet by mouth every 8 hours as needed for Pain, Moderate. Max Daily Amount: 3 Tablets 20 Tablet 04/14/20 25 Active tirzepatide, weight loss, (Zepbound) 5 mg/0.5 mL Pen InjectorIndicati ons:Morbid obesity with BMI of 50.0-59.9, adult ([facility]) Inject 0.5 mL (5 mg) by subcutaneous injection every 7 days. 2 mL 3 05/11/20 25 Active tirzepatide, weight loss, (Zepbound) 2.5 mg/0.5 mL Pen InjectorIndicati ons:Morbid obesity with BMI of 50.0-59.9, adult ([facility]) Inject 2.5 mg by subcutaneous injection every 7 days. 6 mL 1 01/12/20 25 025 Discontin ued(Dose/ form adjustmen t) Active Problems Problem Noted Date Diagnosed Date s/p lap sigmoid colectomy for chronic Diverticulitis 03/12/2025 Cigarette dependence 11/26/2023 Chronic migraine with aura w ithout status migrainosus, not intractable 11/05/2023 Morbid obesity with BMI of 50.0-59.9, adult 10/18 LBP (low back pain) 08/18/2013 Lumbar spondylosis 08/18/2013 Sprain and strain of back 08/18/2013 Supervision of high-risk of caroline donaldson 10/09/2011 Essential hypertension 10/09/2011 Morbid obesity 10/09/2011 History of labor, current 09/17 Overview (01/12/2021): Admission exam: /1 per Geoff Marlow MD at 10/09/2011; 11:10 AM Encounters Date Type Department Care Team Description 05/31/[address] [facility] Gen Spec Surg [address] [place] [phone] Avtar Kumar MD Information (06/09/25) 05/26/2025 8:00 AM CDT - 05/26/2025 11:59 PM CDT Hospital Encounter [facility] CT Scan [place] [address] [place] [phone] Isis Fontaan, JAYESH Discharge Disposition: Home or Self Care 05/26/2025 Results Follow-Up [facility] Gen Spec [facility]urg [place] [facility] [address] [place] [phone] Florencia Scott, EAMON CT ABDOMEN PELVIS W CONTRAST 05/25/[address] [facility] Gen Spec Surg [place] [facility] [address] [phone] Isis Fontana, JAYESH Acute generalized abdominal pain (Primary Dx) 05/19/2025 External Device Data STL ABSTRACTION Provider, Abstract 05/18/2025 External Device Data STL ABSTRACTION Provider, Abstract 05/18/2025 External Device Data STL ABSTRACTION Provider, Abstract 05/13/[address] [facility] Gen Spec Surg [place] [address] [place] [address] [phone] Avtar Kumar MD [place] ; Colonoscopy 05/11/[address] [facility] Family [facility] [place] [address] [place] [phone] Pan, December, BARREL CHARRER HELPER Morbid obesity with BMI of 50.0-59.9, adult (CMS/HCC) (Primary Dx) 05/05/2025 External Device Data STL ABSTRACTION Provider, Abstract 05/04/2025 External Device Data STL ABSTRACTION Provider, Abstract 04/29/[address] [facility] Gen Spec [facility] [place] [address] [place] [address] [phone] Avtar Kumar MD Diverticulitis of colon without hemorrhage; Post-operative pain 04/27/2025 External Device Data STL ABSTRACTION Provider, Abstract 04/21/[address] [facility] Gen [facility] [place] [address] [place] [address] [phone] Joseph Talbert DO Diverticulitis of colon without hemorrhage; Post-operative pain 04/19/2025 Orders Only [facility] [address] [place] [phone] Provider, Abstract 2025 External Device Data STL ABSTRACTION Provider, Abstract 2025 External Device Data STL ABSTRACTION Provider, Abstract 2025 External Device Data STL ABSTRACTION Provider, Abstract 2025 [facility] Gen Spec Surg [place] [address] [place] [address] [phone] Rafal Britt MD Diverticulitis of colon without hemorrhage; Post-operative pain 04/07/2025 [facility] Gen Spec [facility] [place] [address] [place] [address] [phone] Joseph Talbert DO Abdominal pain, acute, left lower quadrant; Diverticulitis of colon without hemorrhage; Post-operative pain 04/06/2025 [facility] Gen Spec [place] [place] [address] [place] [address] [phone] Avtar Kumar MD Diverticulitis of colon without hemorrhage; Post-operative pain 04/05/2025 Orders Only [facility] [address] [place] [phone] December, BARREL CHARRER HELPER Nausea and vomiting, unspecified vomiting type (Primary Dx) 04/05/2025 Orders Only [facility] Medicine [place] [address] [place] [phone] Pan, December, BARREL CHARRER HELPER Hidradenitis suppurativa (Primary Dx) 04/02/[address] [facility] Gen Spec [facility] [place] [address] [place] [address] [phone] Avtar Kumar MD 04/02/[address] [facility] Gen Spec [facility] [place] [address] [place] [address] [phone] Avtar Kumar MD 03/31/2025 11:00 AM CDT Office Visit [facility] Gen Spec [facility] [place] [address] [place] [address] [phone] Isis Fontana NP Postoperative visit (Primary Dx) 03/31/2025 External Device Data STL ABSTRACTION Provider, Abstract 03/31/2025 External Device Data STL ABSTRACTION Provider, Abstract 03/31/[address] [facility] Gen Spec [facility] [place] [address] [place] [address] [phone] Avtar Kumar MD Diverticulitis of colon without hemorrhage; Post-operative pain 03/29/2025 Orders Only [facility] HIM [address] [place] [phone] Provider, Abstract 03/26/[address] [facility] Gen Spec [facility] [place] [address] [place] [address] [phone] Avtar Kumar MD Diverticulitis of colon without hemorrhage; Post-operative pain 03/23/[address] [facility] Gen Spec [facility] [place] [address] [place] [address] [phone] Avtar Kumar MD Question 03/22/[address] [facility] Gen Spec [facility] [place] [address] [place] [address] [phone] Avtar Kumar MD Diverticulitis of colon without hemorrhage; Post-operative pain 03/22/[address] [facility] Gen Spec [facility] [place] [address] [place] [phone] Avtar Kumar MD Question 03/18/[address] [facility] Gen Spec [facility] [place] [address] [place] [phone] Ben Hart MD Post-operative pain (Primary Dx); Diverticulitis of colon without hemorrhage 03/18/[address] [facility] Gen [facility] [place] [address] [place] [phone] Avtar Kumar MD Post-operative pain (Primary Dx); Diverticulitis of colon without hemorrhage 03/16/2025 External Device Data STL ABSTRACTION Provider, Abstract 03/16/2025 External Device Data STL ABSTRACTION Provider, Abstract 03/12/2025 7:20 AM CDT - 03/12/2025 10:02 AM CDT Surgery [facility] Operating Room [facility] [place] [phone] Avtar Kumar MD SIGMOID COLECTOMY HAND ASSISTED LAPAROSCOPIC 03/12/2025 7:01 AM CDT Anesthesia Event [facility] Operating Room [address] [place] [phone] Geoff Luna MD Sweaney, Deanna S RUBBER PROCESS HAND 03/12/2025 5:09 AM CDT - 03/14/2025 4:12 PM CDT Hospital Encounter [facility] 3B Surgical [address] [place] [phone] Avtar Kumar MD Diverticulitis Discharge Disposition: Home or Self Care 03/10/[address] [facility] Gen Spec Surg [place] [address] [place] [phone] Avtar Kumar MD Surgery (Arrival time) 03/10/2025 Refill [facility] [place] [address] [place] [phone] Briana Dumas, DO 03/09/2025 External Device Data STL ABSTRACTION Provider, Abstract 03/09/2025 External Device Data STL ABSTRACTION Provider, Abstract 03/09/2025 Telephone [facility] 3A Surgical [address] [place] [phone] Avtar Kumar MD Nurse Navigation from Last 3 Months Immunizations Immunization Administration [...] on file Legal Sex Female 7:26 AM [employer] Gender Identity Not on file Sexual Orientation [...] Department Care Team (Latest Contact Info) Description 06/09/2025 8:30 AM CDT Appointment [facility] Ultrasound [address] [place] [phone] Isis Fontana NP [address] [phone] Delbert Bah, [place] [address] [place] [phone] 06/09/2025 2:20 PM CDT Hospital Encounter [facility] Endoscopy [place] [address] [place] [address] [place] [phone] Avtar Kumar MD [address] [phone] Diverticulitis of colon without hemorrhage 06/09/2025 2:20 PM CDT - 06/09/2025 2:40 PM CDT Surgery [facility] Endoscopy [place] [address] [place] [address] [place] [phone] Avtar Kumar MD [address] [phone] COLONOSCOPY 07/13/2025 10:20 AM CDT Office Visit [facility] [address] [place] [phone] Pan, December, BARREL CHARRER HELPER [address] [phone] 10/14/2025 12:00 PM INSIDE PHONE SALES Office Visit [facility] [place] [address] [facility] [phone] December, BARREL CHARRER HELPER [address] [place] [phone] Scheduled Procedures Name Priority Associated Diagnoses Date/Ti me COLONOSCOPY Diverticulitis of colon without hemorrhage 06/09/2025 2:20 PM CDT Health Maintenance Due Date Last Done Comments HEPATITIS B VACCINES (1 of 3 - 19+ 3-dose series) 2007 Preventative Visit-Managed Medicaid 2007 HPV VACCINES (1 - 3-dose SCDM series) 2015 INFLUENZA VACCINE (#1) 2025 07/21/2021, 2015 Pre-Diabetes and Diabetes Screening 08/08/202508/08 DTAP/TDAP/TD VACCINES (2 - Td or Tdap) 10/16/2025 Goals Goal Patient Goal Type Associated Problems Recent Progress Patient-Stated? Author Autogenera blayne Goal Care Plan Autogenerated Problem No Briana Cali Procedures Procedure Name Priority Date/Time Associated Diagnosis Comments CT ABDOMEN PELVIS W CONTRAST Stat 05/26/2025 9:02 AM CDT Acute generalized abdominal pain CREATININE Stat 05/26/2025 8:22 AM CDT COMPREHENSIVE METABOLIC PANEL Routine 04/16/2025 1:09 PM CDT COMPREHENSIVE METABOLIC PANEL Routine 03/28/2025 10:37 AM [...] AM CDT Diverticulitis of colon without hemorrhage AL ANESTHESIA BLOCK PB PLACEHOLDER CHARGE Routine 03/12/2025 8:01 AM CDT AL LAPS MOBLJ SPLENIC FLXR PFRMD W/PRTL COLECTOMY 03/12/2025 7:20 AM CDT Diverticulitis of colon without hemorrhage AL LAPS COLECTOMY PRTL W/END CLST & CLSR DSTL SGM 03/12/2025 7:20 AM CDT Diverticulitis of colon without hemorrhage AL LAPS COLECTOMY PRTL W/COLOPXTSTMY LW ANAST 03/12/2025 7:20 AM CDT Diverticulitis of colon without hemorrhage AL LAPAROSCOPY COLECTOMY PARTIAL W/ANASTOMOSIS 03/12/2025 7:20 AM CDT Diverticulitis of colon without hemorrhage HEMOGLOBIN A1C Routine 08/08/2022 9:49 AM INSIDE [employer] SALES Morbid obesity with BMI of 50.0-59.9, adult (CMS/[facility]) from Last 3 Months or Most Recently Relevant to Health Maintenance Results * CT ABDOMEN PELVIS W CONTRAST (05/26/2025 9:02 AM CDT) Anatomical Region Laterality Modality Abdomen Computed Tomogra phy 05/26/2025 8:44 AM CDT Impressions 05/26/2025 9:28 AM CDT IMPRESSION: Please see below. Exam: CT ABDOMEN PELVIS W CONTRAST Date/Time of Exam: 05/26/2025 9:02 AM Reason For Exam: Abdominal pain, acute, nonlocalized. Diagnosis: Acute generalized abdominal pain. Technique: 5 mm volumetric acquisition with oral and intravenous contrast. Contrast: IOPAMIDOL 61 % INTRAVENOUS SOLUTION (SINGLE USE VIAL) Given:95 mL Comparison: CT abdomen pelvis 01/12/2025. Findings: Partially visualized chest: No acute abnormality. Liver: Ill-defined region of low attenuation within the medial segment of the left hepatic lobe adjacent to the falciform ligament is identified compatible most consistent with fatty infiltration of liver/vascular variant. Gallbladder: Prior cholecystectomy. Pancreas: Normal. Spleen: Normal. Adrenal glands: Stable asymmetric nodular thickening of the adrenal glands left greater than right. Kidneys and ureters: No hydronephrosis. No parenchymal abnormality. Urinary bladder: Nondistended. Reproductive organs: Status post hysterectomy. GI tract: Surgical anastomotic clips of the rectosigmoid junction. Appendix: Surgically absent. Free fluid: No ascites. No pneumoperitoneum. Lymph nodes: Abnormal short axis diameter by lateral inguinal lymph nodes measuring up to 1.6 cm in short axis diameter. Vasculature: Unremarkable. Body wall: Infraumbilical midline laparotomy incision with an approximately 5.3 x 3.1 x 4.1 cm fluid collection along the surgical incision present with adjacent induration/infiltration of the subcutaneous fat. Tiny fat-containing umbilical hernia. An approximately 2.4 cm tiny fat containing left paramedian hypogastric ventral hernia image 336 series 3. Osseous structures: No acute osseous abnormality. No suspicious lesions. IMPRESSION: 1. Interval partial colectomy with incisional hematoma/seroma. Superimposed infection or abscess not excluded. 2. Development of abnormal short axis diameter bilateral inguinal lymph nodes likely reactive in etiology. 3. Status post cholecystectomy and hysterectomy. Narrative Procedure Note Lola Leos MD - 05/26/2025 IMPRESSION: Please see below. Exam: CT ABDOMEN PELVIS W CONTRAST Date/Time of Exam: 05/26/2025 9:02 AM Reason For Exam: Abdominal pain, acute, nonlocalized. Diagnosis: Acute generalized abdominal pain. Technique: 5 mm volumetric acquisition with oral and intravenous contrast. Contrast: IOPAMIDOL 61 % INTRAVENOUS SOLUTION (SINGLE USE VIAL) Given:95 mL Comparison: CT abdomen pelvis 01/12/2025. Findings: Partially visualized chest: No acute abnormality. Liver: Ill-defined region of low attenuation within the medial segment of the left hepatic lobe adjacent to the falciform ligament is identified compatible most consistent with fatty infiltration of liver/vascular variant. Gallbladder: Prior cholecystectomy. Pancreas: Normal. Spleen: Normal. Adrenal glands: Stable asymmetric nodular thickening of the adrenal glands left greater than right. Kidneys and ureters: No hydronephrosis. No parenchymal abnormality. Urinary bladder: Nondistended. Reproductive organs: Status post hysterectomy. GI tract: Surgical anastomotic clips of the rectosigmoid junction. Appendix: Surgically absent. Free fluid: No ascites. No pneumoperitoneum. Lymph nodes: Abnormal short axis diameter by lateral inguinal lymph nodes measuring up to 1.6 cm in short axis diameter. Vasculature: Unremarkable. Body wall: Infraumbilical midline laparotomy incision with an approximately 5.3 x 3.1 x 4.1 cm fluid collection along the surgical incision present with adjacent induration/infiltration of the subcutaneous fat. Tiny fat-containing umbilical hernia. An approximately 2.4 cm tiny fat containing left paramedian hypogastric ventral hernia image 336 series 3. Osseous structures: No acute osseous abnormality. No suspicious lesions. IMPRESSION: 1. Interval partial colectomy with incisional hematoma/seroma. Superimposed infection or abscess not excluded. 2. Development of abnormal short axis diameter bilateral inguinal lymph nodes likely reactive in etiology. 3. Status post cholecystectomy and hysterectomy. us Isis Fontana NP CT ORDERABLES Final Result * CREATININE (05/26/2025 8:22 AM CDT) CREATININE 0.76 0.51 - 0.95 mg/dL 05/26/2025 8:41 AM CDT [facility] GFR >60 >=60 mL/min/1.7 3 sq meter 05/26/2025 8:41 AM CDT [facility] Comment:eGFR calculated with 2020 CKD-EPI equation. Vegetarian diet, extremely high or low muscle mass, and may affect results. Cystatin C with Glomerular Filtration Rate is a suitable alternative for these patients. Blood BLOOD SPECIMEN / Unknown Collection / Unknown 05/26/2025 8:22 AM CDT 05/26/2025 8:29 AM CDT us Isis Fontana HEADSTART TEACHER CHEMISTRY ORDERABLES Final Re sult [id number] [address] [place] [id number] * COMPREHENSIVE METABOLIC PANEL (04/16/2025 1:09 PM CDT) Only the most recent of2 resultswithin the time period is included. Blood us Abstract Provider CHEMISTRY ORDERABLES Final Res ult * TELEMETRY REPORT (03/15/2025 3:52 AM CDT) us Provider Scanning ECG ORDERABLES Final Result * (ABNORMAL) CBC WITH DIFFERENTIAL (03/14/2025 4:28 AM CDT) Only the most recent of2 resultswithin the time period is included. WBC 16.6(H) 4.5 - 11.0 K/uL 03/14/2025 5:06 AM CDT [facility] RBC 4.44 4.20 - 5.40 M/uL 03/14/2025 5:06 AM CDT [facility] HEMOGLOBIN 13.9 12.0 - 16.0 g/dL 03/14/2025 5:06 AM T [facility] HEMATOCRIT 42.0 36.0 - 46.0 % 03/14/2025 5:06 AM T [facility] MCV 94.6 84.0 - 103.0 fL 03/14/2025 5:06 AM CDT [facility] MCH 31.3 27.0 - 34.0 pg 03/14/2025 5:06 AM T [facility] MCHC 33.1 30.0 - 35.0 g/dL 03/14/2025 5:06 AM CDT [facility] PLATELETS 161 140 - 440 K/uL 03/14/2025 5:06 AM T [facility] MPV 10.6 8.9 - 12.8 fL 03/14/2025 5:06 AM T [facility] RDW 12.9 11.0 - 14.5 % 03/14/2025 5:06 AM [facility] RDW-STDEV 45.1 37.0 - 54.0 fL 03/14/2025 5:06 AM [facility] NEUTROPHILS 71 42 - 75 % 03/14/2025 5:06 AM [facility] LYMPHOCYTES 22(L) 24 - 44 % 03/14/2025 5:06 AM [facility] MONOCYTES 6 2 - 10 % 03/14/2025 5:06 AM [facility] EOSINOPHILS 1 0 - 7 % 03/14/2025 5:06 AM [facility] BASOPHILS 0 0 - 1 % 03/14/2025 5:06 AM [facility] IMMATURE GRANULOCYTES 1 0 - 2 % 03/14/2025 5:06 AM [facility] NEUTROPHIL ABSOLUTE 11.75(H) 2.00 - 8.00 K/uL 03/14/2025 5:06 AM [facility] LYMPHOCYTE ABSOLUTE 3.60 1.20 - 4.00 K/uL 03/14/2025 5:06 AM [facility] MONOCYTE ABSOLUTE 0.93(H) 0.10 - 0.60 K/uL 03/14/2025 5:06 AM [facility] EOSINOPHIL ABSOLUTE 0.19 0.00 - 0.70 K/uL 03/14/2025 5:06 AM [facility] BASOPHILS ABSOLUTE 0.04 0.00 - 0.20 K/uL 03/14/2025 5:06 AM [facility] IMMATURE GRANULOCYTES ABSOLUTE 0.08 0.00 - 0.10 K/uL 03/14/2025 5:06 AM [facility] SMEAR REVIEWED: NA - Not Applicable 03/14/2025 5:06 AM [facility] Blood Venipuncture / Unknown 03/14/2025 4:28 AM CDT 03/14/2025 4:58 AM CDT Avtar Kumar MD HEMATOLOGY ORDERABLES Final Res ult [facility] CLDEB # [id number] [facility] [address] [place] [address] * (ABNORMAL) BASIC METABOLIC PANEL (03/14/2025 4:28 AM CDT) Only the most recent of2 resultswithin the time period is included. SODIUM 140 136 - 145 mmol/L 03/14/2025 5:38 AM T [facility] POTASSIUM 3.7 3.5 - 5.1 mmol/L 03/14/2025 5:38 AM [facility] CHLORIDE 108(H) 98 - 107 mmol/L 03/14/2025 5:38 AM [facility] CO2 23 22 - 29 mmol/L 03/14/2025 5:38 AM [facility] CALCIUM 8.5(L) 8.6 - 10.0 mg/dL 03/14/2025 5:38 AM [facility] BUN 7 6 - 20 mg/dL 03/14/2025 5:38 AM [facility] CREATININE 0.67 0.51 - 0.95 mg/dL 03/14/2025 5:38 AM [facility] GLUCOSE 90 74 - 99 mg/dL 03/14/2025 5:38 AM [facility] GFR >60 >=60 mL/min/1.7 3 sq meter 03/14/2025 5:38 AM [facility] Comment:eGFR calculated with 2020 CKD-EPI equation. Vegetarian diet, extremely high or low muscle mass, and may affect results. Cystatin C with Glomerular Filtration Rate is a suitable alternative for these patients. ANION GAP 9 9 - 20 mmol/L 03/14/2025 5:38 AM [facility] Blood Venipuncture / Unknown 03/14/2025 4:28 AM CDT 03/14/2025 4:59 AM CDT Avtar Kumar MD CHEMISTRY ORDERABLES Final Resu lt Performing Organization Address [facility] Co de Phone Number [facility] CLIA # [id number] [address] [id number] * (ABNORMAL) POC GLUCOSE (03/12/2025 9:39 AM CDT) GLUCOSE POC 139(H) 74 - 99 mg/dL 03/12/2025 9:39 AM CDT [facility] SPECIMEN SOURCE, GLUCOSE POC Capillary 03/12/2025 9:39 AM CDT [facility] Blood, whole 03/12/2025 9:39 AM CDT 03/12/2025 9:48 AM CDT Avtar Kumar MD POINT OF CARE TESTING Final Res ult Performing Organization Address [facility] Co de Phone Number [facility] CLIA # [id number] [address] [address] * PATHOLOGY (03/12/2025 8:43 AM CDT) CASE REPORT Surgical Pathology Report Case: [id number] Authorizing Provider: Avtar Kumar MD Collected: 03/12/2025 08:43 AM Ordering Location: [facility] Received: 03/12/2025 09:39 AM Operating Room Pathologist: Cosmo Arzola MD Specimen: Colon, sigmoid 3:41 PM CDT [facility] FINAL DIAGNOSIS A. Sigmoid colon, segmental resection - Diverticular disease - Adenomatous polyp - Viable resection margins Cosmo Arzola MD [id number] 3:41 PM CDT [facility] at 1541 CDT GROSS DESCRIPTION A. Received [...] obvious abscess, perforation or inflammatory debris identified. Senior Ui Developer sections are submitted as follows: A1-proximal margin, en face A2-distal margin, en face A3-pedunculated polyp A4-intact diverticulum N9-Q7-wbtgwwdla bowel wall with serosal adhesions, Isis Lobo 5 3:41 PM T [facility] OPERATIVE PROCEDURE 1: SIGMOID COLECTOMY HAND ASSISTED LAPAROSCOPIC 2: SPLENIC FLEXURE MOBILIZATION LAPAROSCOPIC 5 3:41 PM T [facility] CLINICAL INFORMATION A [id number] Diverticulitis of colon without hemorrhage K57.32-Diverticulitis of colon without hemorrhage 5 3:41 PM T [facility] COMMENT The Gynzy voice-activated dictation system may have been used [...] determined by the Diagnostic Immunohistochemistry Laboratory of [facility] in compliance with CLIA'88 regulations. Some of these tests rely on the use of analyte specific reagents and are subject to specific labeling requirements by the FDA. All controls show appropriate reactivity. This testing was developed by the Diagnostic Immunohistochemistry Laboratory of [facility]. It has not been cleared or approved by the FDA. The FDA has determined that such clearance or approval is not necessary. 3:41 PM CDT [facility] Tissue SIGMOID COLON STRUCTURE / Unknown Collection / Unknown 03/12/2025 8:43 AM CDT 03/12/2025 9:39 AM CDT Comment:[id number] Avtar Kumar MD PATHOLOGY/CYTOLOGY ORDERABLES F inal Result [facility] CLIA # [id number] [address] [address] [place] [address] * AL ANESTHESIA BLOCK PB PLACEHOLDER CHARGE (03/12/2025 8:01 [...] Approach: Midline Location: L3-4 Injection Technique: Single-shot [place] Identification: palpation technique Number of Attempts: 1 Spinal Needle Needle type: Pencil-tip Needle gauge: 25 G Needle length: 10 cmCSF visualized Assessment Sensory Level: T5 No paresthesia Events: easy and well tolerated Outcome: Complete Additional Notes Attx1. No complications. 150mc Duramorph Geoff Luna MD PROCEDURE/MINOR SURGICAL ORDE RABURBAN Final Result * HEMOGLOBIN A1C (08/08/2022 9:49 AM INSIDE PHONE SALES) HEMOGLOBIN A1C 5.3 <5.7 % of total Hgb [employer] Comment: For the purpose of screening for the presence of diabetes: <5.7% Consistent with the absence of diabetes 5.7-6.4% Consistent with increased risk for diabetes (prediabetes) > or =6.5% Consistent with diabetes This assay result is consistent with a decreased risk of diabetes. Currently, no consensus exists regarding use of hemoglobin A1c for diagnosis of diabetes in children. According to [place] Diabetes Association (ADA) guidelines, hemoglobin A1c <7.0% represents optimal control in non- diabetic patients. Different metrics may apply to specific patient populations. Standards of Medical Care in Diabetes(ADA). ESTIMATED AVERAGE GLUCOSE (MG/DL) 105 mg/dL [employer] ESTIMATED AVERAGE GLUCOSE (MMOL/L) 5.8 mmol/L [employer] Comment: Test Performed at: [facility] [address] [facility] [place] [address] Micah Lambert D.O., MPH Blood 08/08/2022 9:49 AM INSIDE PHONE SALES 08/09/2022 3:35 AM INSIDE PHONE SALES us Janine Lambert BARREL CHARRER HELPER CHEMISTRY ORDERABLES Final Re sult [facility] [phone] [facility] [address] [place] [address] from Last 3 Months or Most Recently Relevant to Health Maintenance Additional Health Concerns Active Problems Noted Date Diagnosed Date Autogenerated Problem 04/02/2025 Insurance [facility] PLAN [facility] [id number] RX INFOCROSSING Medicaid KATHY Advance Directives For more information, please contact: [phone] * Full Code (Latest Code Status on File) Date Activated Date Inactivated Comments 03/12/2025 10:36 AM 03/14/2025 6:12 PM * Full Code Date Activated Date Inactivated Comments 03/12/2025 5:22 AM 03/12/2025 10:36 AM Care Teams [place] Hardware Installer Relationship Specialty Start Date End Date Briana Dumas DO [address] [place] [address] PCP - General Family Practice 07/21/21
--- OUTSIDE RECORDS SUMMARY | 2025-06-04 11:13 | XMS_ITS | Encounter Summary ---
Author Organization [facility] Address [address] [place] [address] Care Team Providers Care Brake Reliner Name Role Phone Briana Dumas Primary Care Provider Reason for Visit * Reason Onset Date Comments Stacy 02/19/2025 Encounter Details Date Type Department Care Team (Late st Contact Info) Description 02/19/2025 Telephone [facility] Gen Spec Surg [place] 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 She also needs a facility where the procedure is being placed. Call-back Number: [phone] documented in this encounter Plan of Treatment Upcoming Encounters Date Type Department Care Team (Latest Contact Info) Description 06/09/2025 8:30 AM CDT Appointment [facility] [address] [place] [address] Isis Fontana NP [address] [place] [phone] Delbert Bah PA [address] [place] [address] 06/09/2025 2:20 PM CDT Hospital Encounter [facility] [place] [address] [place] [address] Avtar Kumar MD [address] [place] [address] Diverticulitis of colon without hemorrhage 06/09/2025 2:20 PM CDT - 06/09/2025 2:40 PM CDT Surgery [facility] [place] [address] [place] [address] Avtar Kumar MD [address] [place] [phone] COLONOSCOPY 07/13/2025 10:20 AM CDT Office Visit [facility] [address] [place] [phone] December, [facility] [address] [place] [address] 10/14/2025 12:00 PM SUPERVISOR WET END Office Visit [facility] [address] [place] [address] December, [facility] [address] [place] [address] Scheduled Procedures Name Priority Associated Diagnoses Date/Ti me COLONOSCOPY Diverticulitis of colon without hemorrhage 06/09/2025 2:20 PM CDT documented as of this encounter Visit Diagnoses Not on filedocumented in this encounter Additional Health Concerns Assessment Noted Time PHQ-9 Depression Total Score: 2 02/10/20 25 7:58 AM CDT documented as of this encounter Care Teams Brake Reliner Relationship Specialty Start Date End Date Briana Dumas DO [address] [place] [phone] PCP - General Family Practice 07/21/21 documented as of this encounter
--- OUTSIDE RECORDS SUMMARY | 2025-06-04 11:13 | XMS_ITS | Encounter Summary ---
Author Organization [facility] Address 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 Topic: CPA Information Request >> February 09, 2025 9:32 AM John Davila wrote: Caller is returning phone call from clinic. Caller Name: Ivy HIGGINS Patient/Caregiver Callback Number: [phone] (mobile) Clinic Did Not Leave Note In Chart Call Notes: Patient/Caller returning call, no note documented with instructions from clinic. Transferred to Backline/INSURANCE PLAN SPECIALIST Line and Shannon answered call. documented in this encounter Plan of Treatment Upcoming Encounters Date Type Department Care Team (Latest Contact Info) Description 06/09/2025 8:30 AM CDT Appointment [facility] Ultrasound [address] [place] [address] Isis Fontana NP [address] [address] Delbert Bah PA [address] [place] [address] 06/09/2025 2:20 PM CDT Hospital Encounter [facility] [place] [address] [place] [address] Avtar Kumar MD [address] [address] Diverticulitis of colon without hemorrhage 06/09/2025 2:20 PM CDT - 06/09/2025 2:40 PM CDT Surgery [facility] [place] [address] [place] [address] Avtar Kumar MD [address] [address] COLONOSCOPY 07/13/2025 10:20 AM CDT Office Visit [facility] [address] [place] [address] December,P [address] [place] [address] 10/14/2025 12:00 PM MEMORANDUM STATEMENT CLERK Office Visit [facility] [address] [facility] [place] [address] December, [facility] [address] [place] [address] Scheduled Procedures Name Priority Associated Diagnoses Date/Ti ca COLONOSCOPY Diverticulitis of colon without hemorrhage 06/09/2025 2:20 PM CDT documented as of this encounter Visit Diagnoses Not on filedocumented in this encounter Additional Health Concerns Assessment Noted Time PHQ-9 Depression Total Score: 2 02/10/20 7:58 AM CDT documented as of this encounter Care Teams Golf Teacher Relationship Specialty Start Date End Date Briana Dumas DO [address] [place] [address] PCP - General Family Practice 07/21/21 documented as of this encounter
--- OUTSIDE RECORDS SUMMARY | 2025-06-04 11:13 | XMS_ITS | Patient Health Record ---
Author Organization [facility] Address [address] [place] [address] Care Team Providers Care Green Plumber Name Role Phone Kimo MCCONNELL, Dodie Primary Care Provider Unavailab Domi WALKER, Robinson Robles Unavailable Allergies Allergen (clinical drug ingredient) Drug/Non [...] MG/0.4ML Inject one syringe subcutaneously once every week.; Duration: 28 Active Social History Tobacco Use: Social History Observation Description Date Details (start date - stop date) Former Smoker NA - NA Tobacco Use/Smoking Question Answer Notes Are you a: former smoker Problems Problem Type SNOMED Code ICD Code Onset Dates Problem Status W/U Status Risk Notes Problem Chest pain (96341525) CHEST PAIN, UNSPECIFIED TYPE (R07.9) Inactive confirmed Problem INJURY OF ANKLE, RIGHT, INITIAL ENCOUNTER (S99.911A) Inactive confirmed Problem Wheeze (79010359) WHEEZE (R06.2) Inactive confirmed Problem Pain in limb (85322571) PAIN OF RIGHT UPPER EXTREMITY (M79.601) Inactive confirmed Problem Postoperative care (regime/therapy ) (303571323) ENCOUNTER FOR POSTOPERATIVE CARE (Z48.89) Inactive confirmed Comment:tylen ol/NSAID for pain,Descript ion:POSTOPERA TIVE VISIT Problem Right flank pain (182003468) RIGHT FLANK PAIN (R10.9) Inactive confirmed Problem 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 Wilson plan of care, Patient is doing amazing on Humira with 99% of lesions resolved and minimal inflammation present ( 1 small and 1 moderate cyst present) Years of chronic HS has left scaring in axilla, breast, thighs and abdomen. Patient is very happy with results. Plan Of Treatment Pending Test Test Name Order Date POC: Urine Test, HCG POC: Transvaginal Ultrasound 02/28/2021 POC: Transvaginal Ultrasound 03/06/2021 POC: Transvaginal Ultrasound 01/10/2021 INJECTION INTO SKIN LESIONS, 1 TO 7 - 11 900 08/01/2021 Venipuncture[i] 04/19/2021 Insurance Providers Payer Name Payer Address Payer Phone Subscriber Number Group Number Insured Name Patient Relationship to Insured Coverage Start Date Coverage End Date [facility] MEDICAID COMMUNITY PLAN [address] [place] [address] [id number] [facility] Self - patient is the insured [place] [employer] [address] [place] [address] [id number] [employer] Self - patient is the insured Medical (General) History Medical History History ICD Code Problems: CHEST PAIN, UNSPECIFIED TYPE, ProblemStatus: Active, INJURY OF ANKLE, RIGHT, INITIAL ENCOUNTE R, ProblemStatus: Active, Problems Reconciled, ProblemStatus: Acti ve, Surgical History Surgery Date(Month/Year) Diagnostic Laparoscopy with appendectomy, Lysis of Adhesion, Incision and Drainage of right breast abscess, ProblemStatus: Active, TLH-BS 02/22/2021 Facial surgery Laparoscopic cholecystectomy delivery and tubal ligation
--- OUTSIDE RECORDS SUMMARY | 2025-06-04 11:13 | XMS_ITS | Encounter Summary ---
Author Organization [facility] Address [address] [place] [address] Care Team Providers Care Art Psychotherapist Or Therapist Name Role Phone Briana Dumas Primary Care Provider Reason for Visit * Reason Onset Date Comments Information 05/31/2025 06/09/25 Encounter Details Date Type Department Care Team (Late st Contact Info) Description 05/31/2025 Telephone [facility] Gen Spec Surg [address] [facility] 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 Patient stated this is a long drive, but would make it. I asked her to call us if she changes her mind and wants to cx or r/s. Patient expressed understanding of this plan. Mita MeekMile documented in this encounter Plan of Treatment Upcoming Encounters Date Type Department Care Team (Latest Contact Info) Description 06/09/2025 8:30 AM CDT Appointment [facility] Ultrasound [address] [place] [address] Isis Fontana NP [address] [place] [address] Delbert Bah PA [address] [place] [address] 06/09/2025 2:20 PM CDT Hospital Encounter [facility] [place] [address] [place] [address] Avtar Kumar MD [address] [place] [address] Diverticulitis of colon without hemorrhage 06/09/2025 2:20 PM CDT - 06/09/2025 2:40 PM CDT Surgery [facility] [address] [place] [address] Avtar Kumar MD [address] [place] [address] COLONOSCOPY 07/13/2025 10:20 AM CDT Office Visit [facility] [address] [place] [facility] [address] December, [facility] [address] [place] [address] 10/14/2025 12:00 PM SURVEY RESEARCHER Office Visit [facility] [address] [place] [facility] [place] [address] December, [facility] [address] [place] [address] Scheduled Procedures Name Priority Associated Diagnoses Date/Ti [...] documented as of this encounter Care Teams Art Psychotherapist Or Therapist Relationship Specialty Start Date End Date Briana Dumas DO [address] [place] [address] PCP - General Family Practice 07/21/21 documented as of this encounter
[2025-06-04 11:20] VITALS: BP 150/96; PULSE 80; RESP 17; TEMP 36.4; O2SAT 94; BMI 51.3
--- NOTE | 2025-06-04 11:49 | W.ED.ABDPA2 ---
HPI - Abdominal Pain General: Chief Complaint: GI Bleed Stated Complaint: N/V ABD pain Bleeding Rectum Time Seen by Provider: 06/04/25 11:30 Source: patient Mode of arrival: ambulatory Limitations: no limitations History of Present Illness: Patient is a 35-year-old female presents to ED today with a complaint of abdominal pain, vomiting, bright red blood per rectum. Patient states on 03/14 she underwent a partial colectomy by Dr. Kumar at [facility] in [place] for treatment of diverticulitis. Patient states she has had issues since the surgery including several episodes of wound dehiscence. At some point she underwent repeat CT imaging which showed a fluid collection near one of her surgical sites. She states she is scheduled on Saturday for a colonoscopy and IR drainage of this fluid collection. She states she was feeling well until this morning when she woke up with diffuse abdominal pain, vomiting, and noticed a large amount of bright red blood when she had a bowel movement this morning. Patient has not been running fevers. MD elicited complaint: abdominal pain Pertinent past history: diverticulitis Onset (ago): hour(s) Pain Consistency: constant Location: Diffuse Severity: moderate Radiation: none Migration to: no migration Exacerbating factors: nothing Relieving factors: nothing Associated Symptoms: Reports hematochezia, nausea and vomiting; Denies chills, dysuria, fever(s) and hematemesis Related Data Home Medications ?Medication ?Instructions ?Recorded ?Confirmed acetaminophen 500 mg tablet 1,000 mg PO Q6H PRN Pain 08/04/24 05/20/25 (Tylenol Extra Strength) ondansetron 4 mg disintegrating 4 mg PO Q8H PRN nausea/emesis 12/28/24 05/20/25 tablet tirzepatide (weight loss) 2.5 2.5 mg SUBCUT Q7D 04/16/25 05/20/25 mg/0.5 mL subcutaneous pen injector (Zepbound) Previous Rx's ?Medication ?Instructions ?Recorded albuterol sulfate 90 mcg/actuation 2 puff inhalation Q6H PRN 10/27/24 aerosol inhaler shortness of breath or wheezing #8.5 grams promethazine 25 mg tablet 25 mg PO Q6H PRN nausea and 12/28/24 vomiting #20 tabs hydrocodone 5 mg-acetaminophen 325 1 tab PO Q6H PRN pain #15 tabs 08/01/25 mg tablet azithromycin 500 mg tablet 500 mg PO DAILY 5 days #5 tabs 05/20/25 Allergies Allergy/AdvReac Type Severity Reaction Status Date / Time cephalexin (From Keflex) Allergy Unknown Verified 05/20/25 14:16 Sulfa (Sulfonamide Allergy Unknown Verified 05/20/25 14:16 Antibiotics) sulfamethoxazole (From Allergy Unknown Verified 05/20/25 14:16 Bactrim) tramadol Allergy ADR-Swelling Verified 05/20/25 14:16 of the Eye trimethoprim (From Bactrim) Allergy Unknown Verified 05/20/25 14:16 ketorolac (From Toradol) AdvReac ADR-Swelling Verified 05/20/25 14:16 of the Eye/ SWEATING Review of Systems Const: Denies: fever(s), chills, body aches, fatigue or malaise Card: Denies: chest pain Resp: Denies: dyspnea GI: Reports: abdominal pain, nausea, vomiting and hematochezia; Denies: hematemesis : Denies: flank pain, difficulty voiding, dysuria, urinary frequency, urinary urgency or urinary hesitancy Musc: Denies: neck pain or back pain Skin/Breast: Denies: rash Neuro: Denies: headache(s) or dizziness PFSH ED PFSH: Medical History Hemorrhagic cyst of left ovary Demyelinating disease of central nervous system Rheumatoid arthritis Chronic migraine without aura, intractable, with status migrainosus Immunization counseling High risk medication use Positive LOKESH (antinuclear antibody) Inflammatory arthritis Epidermoid cyst of face surgically removed Anxiety Depression Stomach ulcer No pertinent past medical history Surgical History H/O tubal ligation History of cholecystectomy History of appendectomy History of delivery History of hysterectomy History of tonsillectomy Family History Mother Colon cancer Diabetes Hyperlipidemia Hypertension Stroke Heart disease Father Diabetes Hypertension Thyroid disease Denies family history of Clotting disorder Chronic kidney disease (CKD) Bleeding disorder Social History Smoking and tobacco/nicotine status: never used tobacco/nicotine Substance/Drug Use: never Physical Exam Const: COMMON NORMALS: no acute distress, patient oriented x3, no limitations, alert and well nourished GENERAL APPEARANCE: cooperative NUTRITIONAL APPEARANCE: obese morbidly obese (BMI 51.3) ORIENTATION/CONSCIOUSNESS: Yes awake, Yes oriented to person, Yes oriented to place and Yes oriented to time Resp: COMMON NORMALS: normal respiratory effort and clear to auscultation bilaterally AUSCULTATION: clear to auscultation bilaterally Cardio: COMMON NORMALS: regular rate and regular rhythm RATE: regular rate RHYTHM: regular rhythm GI: COMMON NORMALS: Normal to inspection, nondistended, normoactive bowel sounds present, Soft to palpation, No hepatosplenomegaly present and no masses INSPECTION: Yes normal to inspection PALPATION: Yes Soft to palpation, Yes Tenderness to palpation present (GI) (diffusely-exam somewhat limited due to body habitus) and Yes No hepatosplenomegaly present : COMMON NORMALS: Yes no CVA tenderness BLADDER/KIDNEY EXAM: Yes no CVA tenderness Back/Pelvis: COMMON NORMALS: no CVA tenderness, thoracic and lumbar spine normal to inspection and no thoracic nor lumbar tenderness Extremity: GENERAL: Yes normal exam except as noted Neuro: COMMON NORMALS: patient oriented x3 SENSORIUM/ORIENTATION: Yes alert, Yes oriented to person, Yes oriented to place and Yes oriented to time Skin: COMMON NORMALS: no rashes or lesions noted GENERAL SKIN EXAM: no rashes or lesions noted Course Vital Signs: Vital signs: Vital Signs Temperature 97.6 F 06/04/25 11:20 Pulse Rate 73 06/04/25 12:56 Respiratory Rate 17 06/04/25 11:20 Blood Pressure 150/96 06/04/25 11:20 Pulse Oximetry 98 06/04/25 12:56 Oxygen Delivery Me thod Room Air 06/04/25 11:20 MDM - Abdominal Pain Medical Decision Making Patient clinically appears in no acute distress. Her vital signs are stable. She has not had any vomiting or abnormal stools while here. She is approximately 2.5 months postop partial colectomy for treatment of diverticulitis. Her abdominal pain has improved while here. Blood work overall is nonactionable. UA is clear. CT scan showing an unremarkable surgical anastomotic site. She does have constipation. Patient states she is on Zepbound so this probably is contributing to that. Small amount of narrowing proximal to the anastomotic site-eventually a stricture. Patient is passing gas and stool. She has positive bowel sounds. She is scheduled for a colonoscopy at [facility] on Saturday. They also reportedly are doing an IR drainage of the fluid collection. CT scan today look like this was improving. Ultimately from an ER standpoint today, I feel she can go home. Return precautions discussed-otherwise plan for follow-up at [facility] on Saturday. Differential Diagnosis Likely abdominal pain, constipation, gastroenteritis and small bowel obstruction Medical Records I reviewed the patient's medical records. Lab Data I reviewed the patient's lab results. 06/04/25 12:01 06/04/25 12:01 Labs/Radiology: Radiology Impressions Abdomen/Pelvis CT 06/04/25 11:55 IMPRESSION: 1. Status post partial colectomy. Surgical anastomotic site in the distal sigmoid appears unremarkable. There is no adjacent abscess or free fluid. No adenopathy. 2. Constipation. There is narrowing of the colon proximal to the anastomotic site. Potentially there could be a stricture limiting the GI tract. At this time there is constipation but no obstruction. 3. Prior cholecystectomy. 4. Prior appendectomy. 5. Decreasing size fluid collection in the anterior inferior abdominal wall. Laboratory Results WBC 14.55 10^3/uL (3.29-11.43) H 06/04/25 12:01 RBC 4.75 10^6/uL (3.85-5.65) 06/04/25 12:01 Hgb 14.70 g/dL (11.27-16.99) 06/04/25 12:01 Hct 44.3 % (36-47) 06/04/25 12:01 MCV 93.3 fl (85-98) 06/04/25 12:01 MCH 30.9 pg (27-33) 06/04/25 12:01 MCHC 33.2 g/dL (30-55) 06/04/25 12:01 RDW 13.0 % (12.1-15.1) 06/04/25 12:01 Plt Count 207 10^3/cmm (157-399) 06/04/25 12:01 MPV 10.2 fL (7.4-10.4) 06/04/25 12:01 Neut % (Auto) 66.4 % 06/04/25 12:01 Lymph % (Auto) 27.1 % 06/04/25 12:01 Mercer % (Auto) 4.9 % 06/04/25 12:01 Eos % (Auto) 1.0 % 06/04/25 12:01 Baso % (Auto) 0.3 % 06/04/25 12:01 Neut # (Auto) 9.65 10^3/uL (1.8-7.7) H 06/04/25 12:01 Lymph # (Auto) 3.9 10^3/uL (0.8-4.8) 06/04/25 12:01 Mercer # (Auto) 0.7 10^3/uL (0.2-0.9) 06/04/25 12:01 Eos # (Auto) 0.2 10^3/uL (0.0-0.8) 06/04/25 12:01 Baso # (Auto) 0.0 10^3/uL (0.0-0.1) 06/04/25 12:01 Nucleated RBC % (auto) 0 % 06/04/25 12:01 Nucleated RBCs # 0.0 /100WBC 06/04/25 12:01 Sodium 137 mmol/L (136-145) 06/04/25 12:01 Potassium 3.7 mmol/L (3.5-5.1) 06/04/25 12:01 Chloride 104 mmol/L (98-107) 06/04/25 12:01 Carbon Dioxide 24 mmol/L (22-29) 06/04/25 12:01 Anion Gap 12.7 (5-19) 06/04/25 12:01 BUN 12 mg/dL (6-20) 06/04/25 12:01 Creatinine 0.7 mg/dL (0.5-0.9) 06/04/25 12:01 GFR Calculation 94.2 mL/min (90-130) 06/04/25 12:01 Glucose 100 mg/dL (65-115) 06/04/25 12:01 Calculated Osmolality 284 mOsm/kg (285-295) L 06/04/25 12:01 Calcium 8.8 mg/dL (8.5-10.5) 06/04/25 12:01 Total Bilirubin 0.4 mg/dL (0.15-1.2) 06/04/25 12:01 AST 12 U/L (0-32) 06/04/25 12:01 ALT 17 U/L (0-33) 06/04/25 12:01 Alkaline Phosphatase 87 U/L (35-105) 06/04/25 12:01 Total Protein 6.8 g/dL (6.6-8.7) 06/04/25 12:01 Albumin 3.3 g/dL (3.5-5.2) L 06/04/25 12:01 Globulin 3.5 g/dL (1.3-4.6) 06/04/25 12:01 Lipase 16 U/L (13-60) 06/04/25 12:01 HCG, Qual Negative (Negative) 06/04/25 12:01 Urine Color Yellow (Yellow) 06/04/25 12:50 Urine Appearance Clear (CLEAR) 06/04/25 12:50 Urine pH 6.5 (5-7) 06/04/25 12:50 Ur Specific [place] 1.037 (1.005-1.030) H 06/04/25 12:50 Urine Protein Negative (Negative) 06/04/25 12:50 Urine Glucose (UA) Negative (Normal) 06/04/25 12:50 Urine Ketones Negative (Negative) 06/04/25 12:50 Urine Blood Non-haemolysed trace (Negative) 06/04/25 12:50 Urine Nitrate Negative (Negative) 06/04/25 12:50 Urine Bilirubin Negative (Negative) 06/04/25 12:50 Urine Urobilinogen 1.0 mg/dL (Negative) 06/04/25 12:50 Ur Leukocyte Esterase Negative (Negative) 06/04/25 12:50 Urine RBC 6-10 /hpf (0-2) 06/04/25 12:50 Urine WBC 0-5 /hpf (0-5) 06/04/25 12:50 Ur Squamous Epith Cells 6-10 /hpf (0-5) 06/04/25 12:50 Urine Bacteria None seen /hpf (NONE) 06/04/25 12:50 Hyaline Casts 0-4 /lpf H 06/04/25 12:50 All radiology interpretation(s) finalized by discharge Discharge Plan Discharge Patient Disposition: Home Clinical Impression: H/O partial resection of colon Abdominal pain Qualifiers: Abdominal location: generalized Qualified Code(s): R10.84 - Generalized abdominal pain Constipation Qualifiers: Constipation type: unspecified constipation type Qualified Code(s): K59.00 - Constipation, unspecified Condition: Stable Prescriptions: No Action albuterol sulfate 90 mcg/actuation HFA aerosol inhaler 2 puff inhalation Q6H PRN (Reason: shortness of breath or wheezing) Qty: 8.5 0RF azithromycin 500 mg tablet 500 mg PO DAILY 5 Days Qty: 5 0RF ondansetron 4 mg tablet,disintegrating 4 mg PO Q8H PRN (Reason: nausea/emesis) promethazine 25 mg tablet 25 mg PO Q6H PRN (Reason: nausea and vomiting) Qty: 20 0RF Zepbound 2.5 mg/0.5 mL pen injector 2.5 mg SUBCUT Q7D hydrocodone-acetaminophen 5-325 mg tablet 1 tab PO Q6H PRN (Reason: pain) Qty: 15 0RF acetaminophen [Tylenol Extra Strength] 500 mg Tablet 1,000 mg PO Q6H PRN (Reason: Pain) Discharge Orders: Discharge ED (Routine); Ordered 06/04/25 Ordered By: Karen Mitchell Referrals: Briana Dumas DO [Primary Care Provider, Family Practice] Patient Instructions: Abdominal Pain (ED), Patient Portal & Michael Instructions Activity Restrictions/Additional Instructions: As we discussed, continue plan to follow-up with your emergency team on Saturday for colonoscopy and IR drainage of fluid collection. You may return to the emergency department for worsening abdominal pain, vomiting, continued bloody stools, fevers, or any other concerns you may have. Print Language: Maori Coding Level of Care Code ED Supply Chain Generalist for Jessica Cassidy
--- NOTE | 2025-06-04 11:55 | CT_ITS ---
WS: [id number] CT ABDOMEN AND PELVIS WITH CONTRAST HISTORY: abdominal pain, vomiting, bright red stool TECHNIQUE: Imaging performed of the abdomen and pelvis with IV contrast. Single phase imaging of the abdomen. Coronal and sagittal reformats are submitted. All CT scans at [facility] use at least one of these dose optimization techniques: automated exposure control; mA and/or kV adjustment per patient size (includes targeted exams where dose is matched to clinical indication); or iterative reconstruction. IV CONTRAST: Omnipaque 350; 100 mL IV. Oral contrast: No DLP: 1339.53 mGy.cm COMPARISON: 03/29/2025, 01/11/2025 Lower thorax: Lung bases are clear. Heart is normal size. No hiatal hernia. Liver/biliary system: Mild hepatic enlargement. Mild hepatic steatosis along the falciform ligament. No intrahepatic duct dilatation. Normal portal vein. Gallbladder: Status post cholecystectomy. Pancreas: Normal size pancreas and pancreatic duct. No adjacent inflammation. Spleen: Normal size spleen. No mass or infarct. Adrenal glands: Normal RIGHT adrenal gland. Mild thickening of the LEFT adrenal gland is stable. Right kidney: Normal. Left kidney: Normal. Aorta: Normal. Lymphadenopathy: None. Free fluid: None. GI tract: Normally distended stomach. No small bowel obstruction. Moderate constipation in the RIGHT colon. Prior appendectomy. Distal sigmoid anastomotic site appears intact. There is some beam hardening artifact in the pelvis from patient's body habitus. There is no free fluid or free air. No soft tissue mass. Abdominal wall: Tiny abdominal wall hernia. There is a small fluid collection which is decreasing in size along the inferior abdominal wall at the level of the symphysis pubis. The collection measures 3.7 x 4.4 x 3.0 cm and is probably a postoperative seroma or hematoma. Less likely abscess with no air and decreasing in size over a long time. Pelvis: Prior hysterectomy. Ovaries are identified and normal. Bones: Unremarkable. CT/CT abdomen pelvis w con* [id number] IMPRESSION: 1. Status post partial colectomy. Surgical anastomotic site in the distal sigm oid appears unremarkable. There is no adjacent abscess or free fluid. No adenop athy. 2. Constipation. There is narrowing of the colon proximal to the anastomotic s ite. Potentially there could be a stricture limiting the GI tract. At this time there is constipation but no obstruction. 3. Prior cholecystectomy. 4. Prior appendectomy. 5. Decreasing size fluid collection in the anterior inferior abdominal wall.
[2025-06-04 12:11] LABS: Hematocrit 44.3 % (36-47); Hemoglobin 14.70 g/dL (11.27-16.99); Mean Corpuscular HGB Conc 33.2 g/dL (30-55); Mean Corpuscular Hemoglobin 30.9 pg (27-33); Mean Corpuscular Volume 93.3 fl (85-98); Nucleated Red Blood Cells % 0 %; Platelet Count 207 10^3/cmm (157-399); Red Blood Count 4.75 10^6/uL (3.85-5.65); White Blood Count 14.55 10^3/uL (3.29-11.43)
[2025-06-04] MEDS: metoclopramide 5 mg/mL SDV 2 mL 10 MG IVP (12:15)
[2025-06-04] MEDS: morphine 4 mg/mL SDV 1 mL IVP (12:15)
[2025-06-04 12:23] LABS: HCG, Serum Qual Negative (Negative)
[2025-06-04 12:34] LABS: Alanine Aminotransferase 17 U/L (0-33); Albumin Level 3.3 g/dL (3.5-5.2); Alkaline Phosphatase 87 U/L (35-105); Anion Gap 12.7 (5-19); Aspartate Amino Transferase 12 U/L (0-32); Blood Urea Nitrogen 12 mg/dL (6-20); Calcium 8.8 mg/dL (8.5-10.5); Carbon Dioxide 24 mmol/L (22-29); Chloride 104 mmol/L (98-107); Creatinine Clr Calc Pharmacy 162.0314; Globulin 3.5 g/dL (1.3-4.6); Glucose 100 mg/dL (65-115); Lipase 16 U/L (13-60); Osmolality Calculated 284 mOsm/kg (285-295); Potassium 3.7 mmol/L (3.5-5.1); Sodium 137 mmol/L (136-145); Total Protein 6.8 g/dL (6.6-8.7)
[2025-06-04 12:56] VITALS: PULSE 73; O2SAT 98
[2025-06-04 12:57] LABS: Glucose Urine UA Negative (Normal); Nitrate Urine Negative (Negative)
[2025-06-04 12:59] LABS: Add Urine Microscopic? YES
[2025-06-04 13:15] LABS: Specific Gravity, Urine 1.037 (1.005-1.030)
[2025-06-04 13:39] VITALS: BP 132/93; PULSE 73; O2SAT 97
== END 2025-06-04 13:45 | disposition home or self-care (01) ==
PROVIDERS: Emergency Provider Physician Assistant; PCP Family Medicine
DX: R10.84 Generalized abdominal pain (principal); K59.00 Constipation, unspecified; Z90.49 Acquired absence of other specified parts of digestive tract
CPT/HCPCS: 36415; 74177; 80053; 81001; 83690; 84703; 85025; 96374; 96375; 99285; J2270; J2765

== ENCOUNTER 2025-07-17 09:07 | Emergency (ER) | payer MEDICAID, SELFPAY ==
[2025-07-17 09:12] VITALS: BP 161/85; PULSE 86; RESP 18; TEMP 36.4; O2SAT 96; BMI 51.5
--- OUTSIDE RECORDS SUMMARY | 2025-07-17 09:12 | XMS_ITS | Encounter Summary ---
Author Organization [facility] Address [address] [place] [address] Care Team Providers Care Shirt Sewer Name Role Phone Briana Dumas Primary Care Provider Reason for Visit * Reason Onset Date Comments Stacy 02/19/2025 Encounter Details Date Type Department Care Team (Late st Contact Info) Description 02/19/2025 Telephone [facility] Gen Spec Surg [place] [facility] [address] [place] [address] [place] [address] Avtar Kumar MD [address] [place] [address] Stacy Social History Tobacco Use [...] on file Legal Sex Female 7:26 AM [employer]NA[employer] Gender Identity Not on file Sexual Orientation Not on file documented as of this encounter Miscellaneous Notes * Telephone Encounter - Isabelle Jackson - 02/19/2025 2:46 PM CDT Provider: Avtar Kumar MD Next office visit: Visit date not found Caller: [facility] Message: She is calling on PA for a procedure Auth needs clinical info to be attached. She also needs a facility where the procedure is being placed. Call-back Number: [phone] documented in this encounter Plan of Treatment Upcoming Encounters Date Type Department Care Team (Late st Contact Info) Description 10/14/2025 12:00 PM MANAGER [employer] Office Visit [facility] [place] [address] [facility] [place] [address] December, REGULATORY AFFAIRS ANALYST [address] [facility] [place] [address] documented as of this encounter Visit Diagnoses Not on filedocumented in this encounter Additional Health Concerns Assessment Noted Time PHQ-9 Depression Total Score: 2 02/10/20 25 7:58 AM CDT documented as of this encounter Care Teams Shirt Sewer Relationship Specialty Start Date End Date Briana Dumas DO [address] [facility] [place] [address] PCP - General Family Practice 07/21/21 documented as of this encounter
--- OUTSIDE RECORDS SUMMARY | 2025-07-17 09:12 | XMS_ITS | Clinical Summary ---
Author Organization [facility] Address [address] [place] [address] Phone Care Team Providers Care Museum Director Name Role Phone Briana Dumas Primary Care [...] as needed for Pain. 20 Tablet 0 1 Active ASCORBIC ACID, VITAMIN C, ORAL Take [...] for Shortness of Breath. 8.5 Gram 3 3 Active hydroCHLOROthiaz waqas 25 mg tabletIndication s:Bilateral edema of lower extremity,Essent ial hypertension Take 0.5-1 Tablets (12.5-25 mg) by mouth daily. 30 Tablet 5 3 Active lisinopriL (PRINIVIL) 20 mg tabletIndication s:Hypertension, essential Take 1 Tablet (20 mg) by mouth daily. 90 Tablet 3 3 Active citalopram (CeleXA) 10 mg tabletIndication s:Mild episode of depression Take 1 Tablet (10 mg) by mouth daily. 30 Tablet 3 Active Additional Information Patient not taking.Reported on 02/19/2025 rimegepant (Nurtec ODT) 75 mg Tablet, Rapid DissolveIndicati ons:Chronic migraine with aura without status migrainosus, not intractable Take 1 Tablet (75 mg) by mouth daily. 9 Tablet 6 4 Active hyoscyamine 0.[address] 1 Tablet (0.125 mg) under tongue every 4 hours as needed for Other (See Comment) (abdominal pain). 30 Tablet 1 4 Active meloxicam (MOBIC) 15 mg tablet Take 1 Tablet (15 mg) by mouth daily. 30 Tablet 1 4 Active nystatin (MYCOSTATIN) 100,000 unit/gram CreamIndications :Candidiasis of skin Apply to affected area 2 times daily. 30 Gram 1 4 Active nicotine (NICODERM CQ) 21 mg/24 hr patchIndications :Encounter for smoking cessation counseling Apply 1 Patch to skin as directed every 24 hours. 28 Patch 5 Active oxyCODONE-acetam inophen (PERCOCET) 7.5-325 mg TabletIndication s:Abdominal pain, acute, left lower quadrant Take 1 Tablet by mouth every 8 hours as needed for Pain, Moderate. Max Daily Amount: 3 Tablets 20 Tablet 5 Active metroNIDAZOLE (FLAGYL) 500 mg tablet Day before surgery, take 1 tablet by mouth at 1pm, 2pm, and 10pm. 3 Tablet 5 Active neomycin (MYCIFRADIN) 500 mg tablet Day before surgery, take 2 tablets at 1pm, 2pm, and 10pm. 6 Tablet 5 Active sodium, potassium and magnesium SULFATES (Suprep Bowel Prep Kit) 17.5-3.13-1.6 gram Recon Soln Follow directions from the clinic 354 mL 5 Active ondansetron (ZOFRAN ODT) 4 mg Tablet, Rapid DissolveIndicati ons:Nausea and vomiting, unspecified vomiting type Take 1 Tablet (4 mg) by mouth every 8 hours as needed for Nausea/Emesis. Dissolve tablet on top of tongue, then swallow with saliva. 30 Tablet 2 5 Active oxyCODONE-acetam inophen (Percocet) 5-325 mg tabletIndication s:Diverticulitis of colon without hemorrhage,Post- operative pain Take 1 Tablet by mouth every 4 hours as needed for Pain, Moderate. Max Daily Amount: 6 Tablets 30 Tablet 5 Active oxyCODONE-acetam inophen (Percocet) 5-325 mg tabletIndication s:Diverticulitis of colon without hemorrhage,Post- operative pain Take 1 Tablet by mouth every 8 hours as needed for Pain, Moderate. Max Daily Amount: 3 Tablets 20 Tablet 5 Active tirzepatide, weight loss, (Zepbound) 5 mg/0.5 mL Pen InjectorIndicati ons:Morbid obesity with BMI of 50.0-59.9, adult ([facility]) Inject 0.5 mL (5 mg) by subcutaneous injection every 7 days. 2 mL 3 5 Active Active Problems Problem Noted Date Diagnosed Date s/p lap sigmoid colectomy for chronic Diverticulitis 03/12/2025 Cigarette dependence 11/26/2023 Chronic migraine with aura w ithout status migrainosus, not intractable 11/05/2023 Morbid obesity with BMI of 50.0-59.9, adult 10/18 LBP (low back pain) 08/18/2013 Lumbar spondylosis 08/18/2013 Sprain and strain of back 08/18/2013 Supervision of high-risk of caroline rosalind igravida 10/09/2011 Essential hypertension 10/09/2011 Morbid obesity 10/09/2011 History of labor, current 09/17 Overview (01/12/2021): Admission exam: /-1 per Geoff Marlow MD at 10/09/2011; 11:10 AM Encounters Date Type Department Care Team Description 07/07/2025 External Device Data ST[facility] ABSTRACTION Provider, Abstract 06/29/2025 External Device Data [facility] ABSTRACTION Provider, Abstract 06/29/2025 External Device Data [facility] ABSTRACTION Provider, Abstract 06/29/2025 External Device Data [facility] ABSTRACTION Provider, Abstract 06/09/2025 12:20 PM CDT - 06/09/2025 12:[address] [facility] Endoscopy [place] [address] [place] [phone] Avtar Kumar MD COLONOSCOPY 06/09/2025 11:03 AM CDT - 06/09/2025 12:53 PM CDT Hospital Encounter [facility] Endoscopy [place] [address] [place] [phone] Avtar Kumar MD Diverticulitis of colon without hemorrhage Discharge Disposition: Home or Self Care 06/09/2025 8:30 AM CDT - 06/09/2025 11:59 PM CDT Hospital Encounter [facility] Ultrasound [address] [place] [phone] Isis Fontana NP Glodowski, Jenna M, PADiyaC Discharge Disposition: Home or Self Care 06/08/[address] [facility] HIM [address] [place] [phone] Provider, Abstract 05/31/2025 Telephone [facility] Gen Spec Surg [place] [address] [address] Avtar Kumar MD Information (06/09/25) 05/26/2025 8:00 AM CDT - 05/26/2025 11:59 PM CDT Hospital Encounter [facility] CT Scan [place] [address] [place] [address] Isis Fontana NP Discharge Disposition: Home or Self Care 05/26/2025 Results Follow-Up [facility] Gen Spec Surg [place] [address] [address] Florencia Scott, RN CT ABDOMEN PELVIS W CONTRAST 05/25/2025 Orders Only [facility] Spec Surg [address] [address] Isis Fontana, JAYESH Acute generalized abdominal pain (Primary Dx) 05/19/2025 External Device Data ST[facility] ABSTRACTION Provider, Abstract 05/18/2025 External Device Data ST[facility] ABSTRACTION Provider, Abstract 05/18/2025 External Device Data ST[facility] ABSTRACTION Provider, Abstract 05/13/2025 Telephone [facility] Spec Surg [address] [address] Avtar Kumar MD [place] ; Colonoscopy 05/11/2025 Orders Only [facility] Family Medicine [place] [address] [place] [phone] Pandecember, SPINNER FRAME Morbid obesity with BMI of 50.0-59.9, adult (CMS/HCC) (Primary Dx) 05/05/2025 External Device Data STL ABSTRACTION Provider, Abstract 05/04/2025 External Device Data STL ABSTRACTION Provider, Abstract 04/29/2025 Refill [facility] Surg [address] [address] Avtar Kumar MD Diverticulitis of colon without hemorrhage; Post-operative pain 04/27/2025 External Device Data ST[facility] ABSTRACTION Provider, Abstract 04/21/2025 Refill [facility] Spec Surg [address] [address] Joseph Talbert DO Diverticulitis of colon without hemorrhage; Post-operative pain 04/19/[address] [facility] HIM [address] [place] [phone] Provider, Abstract from Last 3 Months Immunizations [...] who hurts you emotionally and/or physically? No 06/09/2025 Food Insecurity Answer Date Recorded Patient needs follow up regardin 02/19/2025 Transportation Needs Answer Date Record ed Patient needs follow up regardin 02/19/2025 Utility Needs Answer Date Recorded Patient needs follow up regardin 02/19/2025 Comments No Sex and Gender Information Value Date Recorded Sex Assigned at Not on file Legal Sex Female 7:26 AM ASSISTANT SERVICE MANAGER Gender Identity Not on file Sexual Orientation Not on file Last Filed Vital Signs Vital Sign Reading Time Taken Comments Blood Pressure 113/75 06/09/2025 12:38 PM CDT Pulse 86 06/09/2025 12:38 PM CDT Temperature 36.6 C (97.8 F) 03/31/2025 10:47 AM CDT Respiratory Rate 20 06/09/2025 12:38 PM CDT Oxygen Saturation 98% 06/09/2025 12:38 PM CDT Inhaled Oxygen Concentration - - Weight 147.9 kg (326 lb) 03/31/2025 10:47 AM CDT Height 168.9 cm (5' 6.5 ) 03/31/2025 10:47 AM CD T Body Mass Index 51.83 03/31/2025 10:47 AM CDT Plan of Treatment Upcoming Encounters Date Type Department Care Team (Late st Contact Info) Description 10/14/2025 12:00 PM ASSISTANT SERVICE MANAGER Office Visit [facility] [address] [place] [phone] December, [facility] [address] [place] [address] Health Maintenance Due Date Last Done Comments HEPATITIS B VACCINES (1 of 3 - 19+ 3-dose series) 2007 Preventative Visit-Managed Medicaid 2007 HPV VACCINES (1 - 3-dose SCDM series) 2015 INFLUENZA VACCINE (#1) 2025 07/21/2021, 2015 Pre-Diabetes and Diabetes Screening 08/08/202508/08 DTAP/TDAP/TD VACCINES (2 - Td or Tdap) 10/16/2025 Procedures Procedure Name Priority Date/Time Associated Diagnosis Comments TN COLSC FLX W/RMVL OF TUMOR POLYP LESION SNARE TQ 06/09/2025 12:20 PM CDT Diverticulitis of colon without hemorrhage TN COLONOSCOPY W/BIOPSY SINGLE/MULTIPLE 06/09/2025 12:20 PM CDT Diverticulitis of colon without hemorrhage TN COLONOSCOPY FLX DX W/COLLJ SPEC WHEN PFRMD 06/09/2025 12:20 PM CDT Diverticulitis of colon without hemorrhage US GUIDED ASPIRATION Routine 06/09/2025 10:43 AM CDT Post-operative pain s/p lap sigmoid colectomy 03/02/2025 for chronic Diverticulitis ANAEROBIC/AEROBIC CULTURE W GRAM STAIN Routine 06/09/2025 9:34 AM CDT COMPREHENSIVE METABOLIC PANEL Routine 06/04/2025 1:[address] ABDOMEN PELVIS W CONTRAST Stat 05/26/2025 9:02 AM CDT Acute generalized abdominal pain CREATININE Stat 05/26/2025 8:22 AM CDT COMPREHENSIVE METABOLIC PANEL Routine 04/16/2025 1:09 PM CDT HEMOGLOBIN A1C Routine 08/08/2022 9:49 AM ASSISTANT SERVICE MANAGER Morbid obesity with BMI of 50.0-59.9, adult (CMS/HCC) from Last 3 Months or Most Recently Relevant to Health Maintenance Results * US GUIDED ASPIRATION (06/09/2025 10:43 AM CDT) Anatomical Region Laterality Modality Ultrasound 06/09/2025 10:4 3 AM CDT Impressions 06/09/2025 1:21 PM CDT IMPRESSION: Please see below. Exam: US GUIDED ASPIRATION Date/Time of Exam: 06/09/2025 10:43 AM Reason For Exam: See Diagnosis. This procedure was performed and preliminary findings dictated by Janet Deutsch PA-C. Supervision and final interpretation by Dr. Govea. CONSENT: Risks, benefits, and alternatives of the procedure were discussed with the patient. Specific risks of ultrasound guided fluid aspiration to include, but not limited to: bleeding, infection, pain, injury to bowel, damage to adjacent tissue/organs, . Procedure may need to be repeated if the fluid sample obtained is non-diagnostic. Written informed consent was obtained from the patient. Description of Procedure: A time out was performed to verify the patient and procedure. The patient was placed in a supine position, and ultrasound was utilized to evaluate the lower abdominal wall for seroma visualized on recent CT. The area was marked, prepped, and draped in the usual sterile fashion. All elements of maximal sterile barrier technique, including hand hygiene and cutaneous antisepsis with an antisepsis agent, were used. Local anesthesia was achieved with 1% lidocaine overlying the proposed needle course. A 10-cm 5 Kenyan ZeroMaileh centesis catheter was inserted. 7 ml of a dark burgundy fluid was then drained via syringe. The centesis catheter was removed in its entirety, the chlorhexidine cleansed from the skin, and a sterile dressing placed. The patient tolerated the procedure without complications. Estimated Blood Loss: None Narrative Procedure Note Dodie Govea MD - 06/09/2025 IMPRESSION: Please see below. Exam: US GUIDED ASPIRATION Date/Time of Exam: 06/09/2025 10:43 AM Reason For Exam: See Diagnosis. This procedure was performed and preliminary findings dictated by Janet Deutsch PA-C. Supervision and final interpretation by Dr. Govea. CONSENT: Risks, benefits, and alternatives of the procedure were discussed with the patient. Specific risks of ultrasound guided fluid aspiration to include, but not limited to: bleeding, infection, pain, injury to bowel, damage to adjacent tissue/organs, . Procedure may need to be repeated if the fluid sample obtained is non-diagnostic. Written informed consent was obtained from the patient. Description of Procedure: A time out was performed to verify the patient and procedure. The patient was placed in a supine position, and ultrasound was utilized to evaluate the lower abdominal wall for seroma visualized on recent CT. The area was marked, prepped, and draped in the usual sterile fashion. All elements of maximal sterile barrier technique, including hand hygiene and cutaneous antisepsis with an antisepsis agent, were used. Local anesthesia was achieved with 1% lidocaine overlying the proposed needle course. A 10-cm 5 Kenyan ChiScan centesis catheter was inserted. 7 ml of a dark burgundy fluid was then drained via syringe. The centesis catheter was removed in its entirety, the chlorhexidine cleansed from the skin, and a sterile dressing placed. The patient tolerated the procedure without complications. Estimated Blood Loss: None us Isis Fontana NP US ORDERABLES Final Result * ANAEROBIC/AEROBIC CULTURE W GRAM STAIN (06/09/2025 9:34 AM CDT) CULTURE No aerobic or anaerobic growth 06/12/2025 8:28 AM CDT [facility] GRAM STAIN No organisms observed 06/12/2025 8:28 AM CDT [facility] GRAM STAIN 1+ (Rare or Occasional) Polymorphonuclear WBC 06/12/2025 8:28 AM CDT [facility] Body fluid ENTIRE PELVIS / Unknown Collection / Unknown 06/09/2025 9:34 AM CDT 06/09/2025 11:50 AM CDT us Janet Deutsch PA-C MICROBIOLOGY - GENERAL OR DERABLES Final Result [facility] CLIA # [id number] [address] [place] [address] * COMPREHENSIVE METABOLIC PANEL (06/04/2025 1:45 PM CDT) Only the most recent of2 resultswithin the time period is included. Blood us Abstract Provider CHEMISTRY ORDERABLES Final Res ult * CT ABDOMEN PELVIS W CONTRAST (05/26/2025 [...] etiology. 3. Status post cholecystectomy and hysterectomy. Isis Fontana NP CT ORDERABLES Final Result * CREATININE (05/26/2025 8:22 AM CDT) CREATININE 0.76 0.51 - 0.95 mg/dL 05/26/2025 8:41 AM CDT [facility] GFR >60 >=60 mL/min/1.7 3 sq meter 05/26/2025 8:41 AM CDT [facility] Comment:eGFR calculated with 2020 CKD-EPI equation. Vegetarian diet, extremely high or low muscle mass, and may affect results. Cystatin C with Glomerular Filtration Rate is a suitable alternative for these patients. Blood BLOOD SPECIMEN / Unknown Collection / Unknown 05/26/2025 8:22 AM CDT 05/26/2025 8:29 AM CDT us Isis Fontana NP CHEMISTRY ORDERABLES Final [id number] [address] [place] [address] * HEMOGLOBIN A1C (08/08/2022 9:49 AM ASSISTANT SERVICE MANAGER) HEMOGLOBIN A1C 5.3 <5.7 % of total Hgb [facility] Comment: For the purpose of screening for the presence of diabetes: <5.7% Consistent with the absence of diabetes 5.7-6.4% Consistent with increased risk for diabetes (prediabetes) > or =6.5% Consistent with diabetes This assay result is consistent with a decreased risk of diabetes. Currently, no consensus exists regarding use of hemoglobin A1c for diagnosis of diabetes in children. According to [place] Diabetes Association (ADA) guidelines, hemoglobin A1c <7.0% represents optimal control in non- diabetic patients. Different metrics may apply to specific patient populations. Standards of Medical Care in Diabetes(ADA). ESTIMATED AVERAGE GLUCOSE (MG/DL) 105 mg/dL [facility] ESTIMATED AVERAGE GLUCOSE (MMOL/L) 5.8 mmol/L [facility] Comment: Test Performed at: [facility] [address] [place] [address] Micah Lambert D.O., MPH Blood 08/08/2022 9:49 AM ASSISTANT SERVICE MANAGER 08/09/2022 3:35 AM ASSISTANT SERVICE MANAGER us Janine Lambert SPINNER FRAME CHEMISTRY ORDERABLES Final Re sult [facility] [phone] [facility] [address] [place] [address] from Last 3 Months or Most Recently Relevant to Health Maintenance Insurance [place] [address] [id number] Medicaid KATHY Advance Directives For more information, please contact: [phone] * Full Code (Latest Code Status on File) Date Activated Date Inactivated Comments 06/09/2025 11:23 AM 06/09/2025 2:53 PM * Full Code Date Activated Date Inactivated Comments 03/12/2025 10:36 AM 03/14/2025 6:12 PM * Full Code Date Activated Date Inactivated Comments 03/12/2025 5:22 AM 03/12/2025 10:36 AM Care Teams Museum Director Relationship Specialty Start Date End Date Briana Dumas DO [address] [place] [address] PCP - General Family Practice 07/21/21
--- OUTSIDE RECORDS SUMMARY | 2025-07-17 09:12 | XMS_ITS | Encounter Summary ---
Author Organization [facility] Address [address] [place] [address] Care Team Providers Care Production Line Assembler Name Role Phone Briana Dumas DO Primary Care Provider Reason for Visit * Reason Comments Patient Communication Encounter Details Date Type Department Care Team (Late st Contact Info) Description 02/09/2025 Telephone [facility] [place] [address] [place] [address] Briana Dumas DO [address] [place] [address] Patient Communication Social History Tobacco [...] on file Legal Sex Female 7:26 AM WINDOW SHADE RING COVERER Gender Identity Not on file Sexual Orientation Not on file documented as of this encounter Miscellaneous Notes * Telephone Encounter - John Chang - 02/09/2025 9:33 AM CDT Copied from [facility] #[id number]. Topic: CPA Information Request >> February 09, 2025 9:32 AM John Davila wrote: Caller is returning phone call from clinic. Caller Name: Ivy HIGGINS Patient/Caregiver Callback Number: [phone] (mobile) Clinic Did Not Leave Note In Chart Call Notes: Patient/Caller returning call, no note documented with instructions from clinic. Transferred to Backline/SHIP'S OFFICER Line and Shannon answered call. documented in this encounter Plan of Treatment Upcoming Encounters Date Type Department Care Team (Late st Contact Info) Description 10/14/2025 12:00 PM WINDOW SHADE RING COVERER Office Visit [facility] [place] [address] [place] [facility] [place] [address] December, FASHION PATTERNMAKER [address] [facility] [place] [address] documented as of this encounter Visit Diagnoses Not on filedocumented in this encounter Additional Health Concerns Assessment Noted Time PHQ-9 Depression Total Score: 2 02/10/20 25 7:58 AM CDT documented as of this encounter Care Teams Production Line Assembler Relationship Specialty Start Date End Date Briana Dumas DO [address] [facility] [place] [facility] [place] [address] PCP - General Family Practice 07/21/21 documented as of this encounter
--- OUTSIDE RECORDS SUMMARY | 2025-07-17 09:12 | XMS_ITS | Patient Health Record ---
Author Organization [facility] Address [address] [place] [address] Care Team Providers Care Watch Repair Person Name Role Phone Kimo MCCONNELL, Dodie Primary [...] W/U Status Risk Notes Problem Hidradenitis suppurativa (57208930) Hidradenitis suppurativa (L73.2) Active confirmed Continued Dr. Wilson plan of care, Patient is doing amazing on Humira with 99% of lesions resolved and minimal inflammation present ( 1 small and 1 moderate cyst present) Years of chronic HS has left scaring in axilla, breast, thighs and abdomen. Patient is very happy with results. 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) Inactive confirmed Problem Right flank pain (673892698) RIGHT FLANK PAIN (R10.9) Inactive confirmed Problem [...] Insured Coverage Start Date Coverage End Date [employer] MEDICAID COMMUNITY PLAN [address] [place] [address] [id number] [facility] Self - patient is the insured [place] [employer] [address] [place] [address] [id number] [employer] Self - patient is the insured Medical (General) History Medical History History ICD Code Problems: CHEST PAIN, UNSPECIFIED TYPE, ProblemStatus: Active, INJURY OF ANKLE, RIGHT, INITIAL ENCOUNTE R, ProblemStatus: Active, Problems Reconciled, ProblemStatus: Acti ve, Surgical History Surgery Date(Month/Year) TL-BS 02/22/2021 Facial surgery Laparoscopic cholecystectomy delivery and tubal ligation Diagnostic Laparoscopy with appendectomy, Lysis of Adhesion, Incision and Drainage of right breast abscess, ProblemStatus: Active,
--- NOTE | 2025-07-17 09:25 | ED_ITS ---
HPI - Female Genitourinary 2 General: Chief complaint: Urogenital-Female Stated complaint: Fever N/V luna when Urinates, Back pain Time Seen by Provider: 07/17/25 09:18 History of Present Illness: 35-year-old female presents emergency ro om complaining of dysuria urgency frequency she had some nausea and vomiting with this as well as been going on for the last several days. She does some right sided flank pain. Subjective low-grade fever. She has not noted any hematuria. No other specific abdominal pain. She has not been seen for this up till now no history of nephrolithiasis. Associated symptoms: Deny abdominal pain Related Data Home Medications ?Medication ?Instructions ?Recorded ?Confirmed acetaminophen 500 mg tablet 1,000 mg PO Q6H PRN Pain 1 10/04/23 07/17/25 (Tylenol Extra Strength) ondansetron 4 mg disintegrating 4 mg PO Q8H PRN nausea /emesis 12/28/24 07/17/25 tablet tirzepatide (weight loss) 5 mg/0.5 5 mg SUBCUT Q7D 10/1007/17/25 mL subcutaneous pen injector (Zepbound) Previous Rx's ?Medication ?Instructions ?Recorded albuterol sulfate 90 mcg/actuation 2 puff inhalation Q 6H PRN 10/27/24 aerosol inhaler shortness of breath or wheez ing #8.5 grams ciprofloxacin HCl 500 mg tablet 500 mg PO BID #14 tabs 07/17/25 (Cipro) Allergies Allergy/AdvReac Type Severity Reaction Status Date / Time cephalexin (From Keflex) Allergy Unknown Verified 07/17/25 09:15 Sulfa (Sulfonamide Allergy Unknown Verified 07/17/25 09:15 Antibiotics) sulfamethoxazole (From Allergy Unknown Verified 07/17/25 09:15 Bactrim) tramadol Allergy ADR-Swelling Verified 07/17/25 09:15 of the Eye trimethoprim (From Bactrim) Allergy Unknown Verified 07/17/25 09:15 ketorolac (From Toradol) AdvReac ADR-Swelling Verified 07/17/25 09:15 of the Eye/ SWEATING Review of Systems 2 Const: Denies: fever(s) or chills Card: Denies: chest pain Resp: Denies: dyspnea GI: Denies: abdominal pain : Denies: dysuria, urinary frequency or urinary urgency Musc: Denies: neck pain or back pain Skin/Breast: Denies: rash PFSH ED 2 PFSH: Medical History Hemorrhagic cyst of left ovary Demyelinating disease of central nervous system Rheumatoid arthritis Chronic migraine without aura, intractable, with status migrainosus Immunization counseling High risk medication use Positive LOKESH (antinuclear antibody) Inflammatory arthritis Epidermoid cyst of face surgically removed Anxiety Depression Stomach ulcer No pertinent past medical history Surgical History H/O tubal ligation History of cholecystectomy History of appendectomy History of delivery History of hysterectomy History of tonsillectomy Family History (Reviewed 07/17/25 @ 09: by Raghu Mcleod DO) Mother Colon cancer Diabetes Hyperlipidemia Hypertension Stroke Heart disease Father Diabetes Hypertension Thyroid disease Denies family history of Clotting disorder Chronic kidney disease (CKD) Bleeding disorder Social History Smoking and tobacco/nicotine status: never used tobacco/nicotine Substance/Drug Use: never Physical Exam 2 Const: GENERAL APPEARANCE: cooperative and comfortable O RIENTATION/CONSCIOUSNESS: Yes awake, Yes oriented to person, Yes oriented to place and Yes oriented to time HENMT: COMMON NORMALS: normocephalic, atraumatic and hearing grossly normal bilaterally HEAD & SCALP: normocephalic and atraumatic Resp: COMMON NORMALS: normal respiratory effort, No retractions, No use of accessory muscles and clear to auscultation bilaterally AUSCULTATION: clear to auscultation bilaterally Cardio: COMMON NORMALS: regular rate, regular rhythm and No murmurs present (Cardio) RATE: regular rate RHYTHM: regular rhythm GI: COMMON NORMALS: Soft to palpation and No hepatosplenomegaly present A USCULTATION: Yes normoactive bowel sounds PALPATION: Yes Soft to palpation, No Tenderness to palpation present (GI), No Guarding due to palpation present (GI) and Yes No hepatosplenomegaly present : BLADDER/KIDNEY EXAM: Yes CVA tenderness Back/Pelvis: GENERAL BACK: Yes CVA tenderness CVA tenderness: right Extremity: COMMON NORMALS: normal to inspection, capillary refill normal, no clubbing, cyanosis or edema, no calf tenderness and no pedal edema Neuro: SENSORIUM/ORIENTATION: Yes oriented to person, Yes oriented to place and Yes oriented to time Skin: COMMON NORMALS: no rashes or lesions noted GENERAL SKIN EXAM: no rashes or lesions noted Course 2 Vital Signs: Vital signs: Vital Signs Temperature 97.6 F 07/17/25 09:12 Pulse Rate 78 07/17/25 12:44 Respiratory Rate 16 07/17/25 12:44 Blood Pressure 116/65 07/17/25 12:44 Pulse Oximetry 98 07/17/25 12:44 Oxygen Delivery Me thod Room Air 07/17/25 12:03 MDM - Female Medical Decision Making Patient seen initially CT CBC CMP UA ordered as well as lipase. Differential diagnosis pyelonephritis cystitis nephrolithiasis appendicitis bowel obstruction. Labs and imaging reviewed as found on the chart. Patient has a white count of 16,000. She does have some signs of cystitis in her urine. There is also reports on the CT of her abdominal wall cellulitis she previously had a seroma there. No other report of acute intra-abdominal or pelvic findings on this CT. On exam there is no induration it is mildly tender in that specific area is also overlying the bladder. Will start her on ciprofloxacin and have her follow-up with her primary care doctor return if she has further problems. Medical Records I reviewed the patient's medical records. Lab Data I reviewed the patient's lab results. 07/17/25 09:25 07/17/25 09:25 Radiology Impressions Abdomen/Pelvis CT 07/17/25 10:05 IMPRESSION: 1. No acute abdominopelvic findings. 2. Residual fat stranding of the inferior ventral abdominal wall without discrete evidence of fluid collection on this exam. 3. Left adrenal gland mass measuring 5.9 x 1.6 cm. Recommend MRI for further evaluation. Laboratory Results WBC 16.40 10^3/uL (3.29-11.43) H 07/17/25 09:25 RBC 5.17 10^6/uL (3.85-5.65) 07/17/25 09:25 Hgb 16.00 g/dL (11.27-16.99) 07/17/25 09:25 Hct 48.3 % (36-47) H 07/17/25:25 MCV 93.4 fl (85-98) 07/17/25: MCH 30.9 pg (27-33) 07/17/25 09: MCHC 33.1 g/dL (30-55) 07/17/25 09: RDW 13.3 % (12.1-15.1) 07/17/25 09:25 Plt Count 257 10^3/cmm (157-399) 07/17/25 09: MPV 10.2 fL (7.4-10.4) 07/17/25 09: Neut % (Auto) 67.7 % 07/17/25: Lymph % (Auto) 25.1 % 07/17/25: [place] % (Auto) 5.1 % 07/17/25: Eos % (Auto) 1.3 % 07/17/25: Baso % (Auto) 0.3 % 07/17/25: Neut # (Auto) 11.10 10^3/uL (1.8-7.7) H 07/17/25: Lymph # (Auto) 4.1 10^3/uL (0.8-4.8) 07/17/25 09:25 [place] # (Auto) 0.8 10^3/uL (0.2-0.9) 07/17/25:25 Eos # (Auto) 0.2 10^3/uL (0.0-0.8) 07/17/25 09:25 Baso # (Auto) 0.1 10^3/uL (0.0-0.1) 07/17/25: Nucleated RBC % (auto) 0 % 07/17/25: Nucleated RBCs # 0.0 /100WBC 07/17/25 09:25 Sodium 135 mmol/L (136-145) L 07/17/25 09:25 Potassium 3.8 mmol/L (3.5-5.1) 07/17/25 09: Chloride 103 mmol/L (98-107) 07/17/25 09:25 Carbon Dioxide 24 mmol/L (22-29) 07/17/25 09:25 Anion Gap 11.8 (5-19) 07/17/25:25 BUN 8 mg/dL (6-20) 07/17/25 09:25 Creatinine 0.7 mg/dL (0.5-0.9) 07/17/25 09:25 GFR Calculation 94.2 mL/min (90-130) 07/17/25 09: Glucose 85 mg/dL (65-115) 07/17/25 09: Calculated Osmolality 278 mOsm/kg (285-295) L 07/17/25 09: Calcium 9.1 mg/dL (8.5-10.5) 07/17/25: Total Bilirubin 0.5 mg/dL (0.15-1.2) 07/17/25: AST 16 U/L (0-32) 07/17/25: ALT 22 U/L (0-33) 07/17/25: Alkaline Phosphatase 106 U/L (35-105) H 07/17/25: Total Protein 7.6 g/dL (6.6-8.7) 07/17/25: Albumin 3.8 g/dL (3.5-5.2) 07/17/25 09: Globulin 3.8 g/dL (1.3-4.6) 07/17/25 09: Urine Color Yellow (Yellow) 07/17/25: Urine Appearance Cloudy (CLEAR) A 07/17/25: Urine pH 7.0 (5-7) 07/17/25 09: Ur Specific [place] 1.019 (1.005-1.030) 07/17/25 09: Urine Protein Negative (Negative) 07/17/25 09: Urine Glucose (UA) Negative (Normal) 07/17/25 09: Urine Ketones Negative (Negative) 07/17/25 09: Urine Blood Trace (Negative) A 07/17/25 09: Urine Nitrate Negative (Negative) 07/17/25 09: Urine Bilirubin Negative (Negative) 07/17/25: Urine Urobilinogen 1.0 mg/dL (Negative) 07/17/25 09: Ur Leukocyte Esterase Negative (Negative) 07/17/25 09: Urine RBC 0-2 /hpf (0-2) 07/17/25 09: Urine WBC 6-10 /hpf (0-5) 07/17/25 09:21 Ur Squamous Epith Cells 11-20 /hpf (0-5) H 07/17/25 09:21 Amorphous Sediment Not Reportable 07/17/25 09:21 Urine Bacteria 1+ /hpf (NONE) H 07/17/25 09:21 Hyaline Casts 0.40 /lpf 07/17/25 09:21 All radiology interpretation(s) finalized by discharge Discharge Plan Discharge Patient Disposition: Home Clinical Impression: Cystitis, Abdominal wall cellulitis Condition: Stable Prescriptions: New ciprofloxacin HCl [Cipro] 500 mg tablet 500 mg PO BID Qty: 14 0RF No Action albuterol sulfate 90 mcg/actuation HFA aerosol inhaler 2 puff inhalation Q6H PRN (Reason: shortness of breath or wheezing) Qty: 8.5 0RF ondansetron 4 mg tablet,disintegrating 4 mg PO Q8H PRN (Reason: nausea/emesis) acetaminophen [Tylenol Extra Strength] 500 mg Tablet 1,000 mg PO Q6H PRN (Reason: Pain) Zepbound 5 mg/0.5 mL pen injector 5 mg SUBCUT Q7D Rx Instructions: Saturday Discharge Orders: Discharge ED (Routine); Ordered 07/17/25 Ordered By: Raghu Mcleod Referrals: Briana Dumas DO [Primary Care Provider, Family Practice] Discharge Diet: Usual diet Discharge Activity: Increase activity as tolerated Patient Instructions: Opioid Safety, Pain Management, Patient Portal & Michael Instructions Activity Restrictions/Additional Instructions: Thank you for choosing [facility] for your healthcare needs today. It is very important that you follow up as instructed or that you return to the Emergency Department should you have concerns or if your condition changes or worsens in any way. Emergency department visits are focused on emergent conditions, in some cases you may require further evaluation on an outpatient basis. You were seen in the emergency room with complaint of abdominal discomfort. Your white count was mildly elevated urine shows signs of infection CT did not show any intra-abdominal pathology but did show some inflammation abdominal wall reviewed previously had fluid collection. Will start you on some antibiotics that should cover both of these findings. Follow-up with your primary care doctor if not improving (Please note that included in your discharge packet is information concerning opioid safety and pain management. This information is given to all patients were discharged from the ER regardless of their discharge diagnosis or the medicines they usually take or are prescribed.) Print Language: Kazakh Coding Level of Care Code ED Traffic Incident Management Manager for Jessica Cassidy
[2025-07-17 09:36] LABS: Hematocrit 48.3 % (36-47); Hemoglobin 16.00 g/dL (11.27-16.99); Mean Corpuscular HGB Conc 33.1 g/dL (30-55); Mean Corpuscular Hemoglobin 30.9 pg (27-33); Mean Corpuscular Volume 93.4 fl (85-98); Nucleated Red Blood Cells % 0 %; Platelet Count 257 10^3/cmm (157-399); Red Blood Count 5.17 10^6/uL (3.85-5.65); White Blood Count 16.40 10^3/uL (3.29-11.43)
[2025-07-17 09:36] LABS: Glucose Urine UA Negative (Normal); Nitrate Urine Negative (Negative); Specific Gravity, Urine 1.019 (1.005-1.030)
[2025-07-17 09:41] LABS: Add Urine Microscopic? YES
[2025-07-17 09:56] LABS: Slide Review Slide Review Perform
[2025-07-17 09:58] LABS: Alanine Aminotransferase 22 U/L (0-33); Albumin Level 3.8 g/dL (3.5-5.2); Alkaline Phosphatase 106 U/L (35-105); Anion Gap 11.8 (5-19); Aspartate Amino Transferase 16 U/L (0-32); Blood Urea Nitrogen 8 mg/dL (6-20); Calcium 9.1 mg/dL (8.5-10.5); Carbon Dioxide 24 mmol/L (22-29); Chloride 103 mmol/L (98-107); Creatinine Clr Calc Pharmacy 162.3469; Globulin 3.8 g/dL (1.3-4.6); Glucose 85 mg/dL (65-115); Osmolality Calculated 278 mOsm/kg (285-295); Potassium 3.8 mmol/L (3.5-5.1); Sodium 135 mmol/L (136-145); Total Protein 7.6 g/dL (6.6-8.7)
--- NOTE | 2025-07-17 10:05 | CTR_ITS ---
PROCEDURE INFORMATION: Exam: CT Abdomen And Pelvis Without Contrast Exam date and time: 07/17/2025 10:27 AM Age: 35 years old Clinical indication: Abdominal pain; Flank; Right; Prior surgery; Surgery date: 6+ months; Surgery type: Gb, appy, colon TECHNIQUE: Imaging protocol: Computed tomography of the abdomen and pelvis without contrast. Radiation optimization: All CT scans at this facility use at least one of these dose optimization techniques: automated exposure control; mA and/or kV adjustment per patient size (includes targeted exams where dose is matched to clinical indication); or iterative reconstruction. COMPARISON: CT abdomen pelvis w con* [id number] 06/04/2025 12:23 PM RADIATION DOSE METRICS: Total DLP (mGy-cm): 1339.33 FINDINGS: Liver: Hepatic steatosis with hepatomegaly. No mass. Gallbladder and biliary ducts: Cholecystectomy with extrahepatic biliary ductal dilatation. Pancreas: No ductal dilation. Spleen: No splenomegaly. Adrenal glands: Left adrenal gland mass measuring 5.9 x 1.6 cm (sagittal series 7, image 31). Kidneys and ureters: No hydronephrosis. Stomach and bowel: Status post surgical change at the sigmoid colon. No obstruction. No mucosal thickening. Appendix: Status post appendectomy. Intraperitoneal space: No free air. No significant fluid collection. Vasculature: No abdominal aortic aneurysm. Lymph nodes: No enlarged lymph nodes. Urinary bladder: Unremarkable as visualized. Reproductive: Status post hysterectomy. Bones/joints: Mild degenerative disease. No acute fracture. Soft tissues: Small fat containing umbilical hernia. Fat stranding of the inferior abdominal wall without discrete evidence of fluid collection on this exam. CT/CT abdomen pelvis con [id number] IMPRESSION: 1. No acute abdominopelvic findings. 2. Residual fat stranding of the inferior ventral abdominal wall without discrete evidence of fluid collection on this exam. 3. Left adrenal gland mass measuring 5.9 x 1.6 cm. Recommend MRI for further evaluation.
[2025-07-17] MEDS: ondansetron 2 mg/ML SDV 2 mL 4 MG IVP (10:10)
[2025-07-17 10:12] VITALS: RESP 18
[2025-07-17] MEDS: morphine 4 mg/mL SDV 1 mL IVP (10:12)
[2025-07-17 10:26] VITALS: BP 132/78; PULSE 77; RESP 16; O2SAT 98
[2025-07-17 11:01] VITALS: BP 125/95; PULSE 89; O2SAT 99
[2025-07-17 12:03] VITALS: BP 117/51; O2SAT 97
[2025-07-17 12:44] VITALS: BP 116/65; PULSE 78; RESP 16; O2SAT 98
== END 2025-07-17 12:44 | disposition home or self-care (01) ==
PROVIDERS: Emergency Provider Family Medicine; PCP Family Medicine
DX: N30.90 Cystitis, unspecified without hematuria (principal); L03.311 Cellulitis of abdominal wall
CPT/HCPCS: 36415; 74176; 80053; 81001; 85025; 96361; 96374; 96375; 99285; J2270; J2405; J7030

== ENCOUNTER → 2025-08-03 13:39 | Outpatient (BNVA) | payer MEDICAID, SELFPAY | PROVIDERS: PCP Family Medicine | DX: R50.9 Fever, unspecified (principal) | CPT/HCPCS: 87071; 87400; 87426; 87880 ==

== ENCOUNTER 2025-08-19 13:26 | Emergency (ER) | payer MEDICAID, SELFPAY ==
[2025-08-19 13:35] VITALS: BP 164/102; PULSE 79; RESP 18; TEMP 36.4; O2SAT 98; BMI 51.7
[2025-08-19 14:12] VITALS: BP 156/78; PULSE 76; RESP 16; O2SAT 99
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
== END 2025-08-19 14:13 | disposition home or self-care (01) ==
PROVIDERS: Emergency Provider Family Medicine; PCP Family Medicine
DX: J40 Bronchitis, not specified as acute or chronic (principal)
CPT/HCPCS: 99283

== ENCOUNTER 2025-08-31 11:01 | Emergency (ER) | payer MEDICAID, SELFPAY ==
[2025-08-31 11:25] VITALS: BP 173/130; PULSE 87; RESP 16; TEMP 36.6; O2SAT 98; BMI 51.6
--- NOTE | 2025-08-31 11:30 | W.ED.SKABFB ---
HPI - Skin/Abscess/Foreign Bdy General: Chief complaint: Skin/Abscess/Foreign Body Stated complaint: possible spider bite on L side bottom,hot to touch Time Seen by Provider: 08/31/25 11:25 Source: patient Mode of arrival: ambulatory Limitations: no limitations History of Present Illness: 35-year-old female states that she has had an abscess to her left buttocks over the last 2 days. States she has had a history of abscess in the past. She does have pain at the site and redness she rates pain a 5 out of 10 denies any drainage she denies any worse improved factors. Related Data Home Medications ?Medication ?Instructions ?Recorded ?Confirmed acetaminophen 500 mg tablet 1,000 mg PO Q6H PRN Pain 08/04/24 08/03/25 (Tylenol Extra Strength) ondansetron 4 mg disintegrating 4 mg PO Q8H PRN nausea/emesis 12/28/24 08/03/25 tablet tirzepatide (weight loss) 5 mg/0.5 5 mg SUBCUT Q7D 07/17/25 08/03/25 mL subcutaneous pen injector (Zepbound) Previous Rx's ?Medication ?Instructions ?Recorded albuterol sulfate 90 mcg/actuation 2 puff inhalation Q6H PRN 10/27/24 aerosol inhaler shortness of breath or wheezing #8.5 grams ciprofloxacin HCl 500 mg tablet 500 mg PO BID #14 tabs 07/17/25 (Cipro) azithromycin 500 mg tablet 500 mg PO DAILY 5 days #5 tabs 08/03/25 albuterol sulfate 90 mcg/actuation 2 inh inhalation Q4H PRN shortness 08/19/25 aerosol inhaler of breath or wheezing #18 grams methylprednisolone 4 mg tablets in See Rx Instructions PO .COMPLEX 08/19/25 a dose pack (Medrol (Akhil)) #21 ea clindamycin HCl 300 mg capsule 300 mg PO Q8H 7 days #21 caps 08/31/25 (Cleocin HCl) Allergies Allergy/AdvReac Type Severity Reaction Status Date / Time cephalexin (From Keflex) Allergy Unknown Verified 08/19/25 13:38 Sulfa (Sulfonamide Allergy Unknown Verified 08/19/25 13:38 Antibiotics) sulfamethoxazole (From Allergy Unknown Verified 08/19/25 13:38 Bactrim) tramadol Allergy ADR-Swelling Verified 08/19/25 13:38 of the Eye trimethoprim (From Bactrim) Allergy Unknown Verified 08/19/25 13:38 ketorolac (From Toradol) AdvReac ADR-Swelling Verified 08/19/25 13:38 of the Eye/ SWEATING Review of Systems Skin/Breast: Reports: erythema PFSH ED PFSH: Medical History (Updated 08/31/25 @ 11:41 by Brian Pate MD) Hemorrhagic cyst of left ovary Demyelinating disease of central nervous system Rheumatoid arthritis Chronic migraine without aura, intractable, with status migrainosus Immunization counseling High risk medication use Positive LOKESH (antinuclear antibody) Inflammatory arthritis Epidermoid cyst of face surgically removed Anxiety Depression Stomach ulcer No pertinent past medical history Surgical History H/O tubal ligation History of cholecystectomy History of appendectomy History of delivery History of hysterectomy History of tonsillectomy Family History Mother Colon cancer Diabetes Hyperlipidemia Hypertension Stroke Heart disease Father Diabetes Hypertension Thyroid disease Denies family history of Clotting disorder Chronic kidney disease (CKD) Bleeding disorder Social History Smoking and tobacco/nicotine status: never used tobacco/nicotine Substance/Drug Use: never Physical Exam Const: COMMON NORMALS: no acute distress, patient oriented x3 and healthy appearing HENMT: COMMON NORMALS: normocephalic and atraumatic HEAD & SCALP: normocephalic and atraumatic Neck/C-Spine: COMMON NORMALS: full ROM and supple Chest: COMMONS NORMALS: normal inspection of the chest Resp: COMMON NORMALS: normal respiratory effort Cardio: COMMON NORMALS: regular rate RATE: regular rate Neuro: COMMON NORMALS: patient oriented x3, moves all extremities and no focal motor deficits Psych: COMMON NORMALS: mental status grossly normal, Normal thought process present and cooperative THOUGHT PROCESS: Normal thought process present Skin: NARRATIVE SKIN EXAM: Roughly 4 cm abscess noted to the left buttocks Procedures Abscess I/D Site: other (buttocks) Side (if applicable): left Local Anesthetic: lidocaine 1% Amount of anesthesia used (mL): 10 Technique: incised with #11 blade Irrigation: No Packing used?: iodoform Course Vital Signs: Vital signs: Vital Signs Temperature 98 F 08/31/25 11:25 Pulse Rate 87 08/31/25 11:25 Respiratory Rate 16 08/31/25 11:25 Blood Pressure 173/130 08/31/25 11:25 Pulse Oximetry 98 08/31/25 11:25 Oxygen Delivery Me thod Room Air 08/31/25 11:25 MDM - Skin/Abscess/Foreign Bdy Medicial Decision Making Patient presents with abscess to her left buttocks did incise and drain the abscess did place packing she is remove packing in 2 days return here in 2 days to have it removed. No signs of sepsis we will start her on clindamycin she is stable for discharge follow-up with PCP return if worsening Medical Records I reviewed the patient's medical records. No radiology studies performed this visit Discharge Plan Discharge Patient Disposition: Home Clinical Impression: Abscess of skin or subcutaneous tissue Condition: Stable Prescriptions: New clindamycin HCl [Cleocin HCl] 300 mg capsule 300 mg PO Q8H 7 Days Qty: 21 0RF No Action albuterol sulfate 90 mcg/actuation HFA aerosol inhaler 2 puff inhalation Q6H PRN (Reason: shortness of breath or wheezing) Qty: 8.5 0RF azithromycin 500 mg tablet 500 mg PO DAILY 5 Days Qty: 5 0RF ondansetron 4 mg tablet,disintegrating 4 mg PO Q8H PRN (Reason: nausea/emesis) methylprednisolone [Medrol (Akhil)] 4 mg tablets,dose pack See Rx Instructions .ROUTE .COMPLEX Qty: 21 0RF Rx Instructions: orally per package directions albuterol sulfate 90 mcg/actuation HFA aerosol inhaler 2 inh INHALATION Q4H PRN (Reason: shortness of breath or wheezing) Qty: 18 0RF acetaminophen [Tylenol Extra Strength] 500 mg Tablet 1,000 mg PO Q6H PRN (Reason: Pain) Zepbound 5 mg/0.5 mL pen injector 5 mg SUBCUT Q7D Rx Instructions: Saturday ciprofloxacin HCl [Cipro] 500 mg tablet 500 mg PO BID Qty: 14 0RF Discharge Orders: Discharge ED (Routine); Ordered 08/31/25 Ordered By: Brian Pate Referrals: Briana Dumas DO [Primary Care Provider, Family Practice] - 4-7 days Discharge Diet: Advance as tolerated Discharge Activity: Resume usual activity Patient Instructions: Abscess (ED) Print Language: [place] Coding Level of Care Code 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
[2025-08-31] MEDS: HYDROcodone-acetaminophen 5-325 mg Tablet 1 TAB PO (11:42)
[2025-08-31 11:53] VITALS: BP 172/99; PULSE 83; O2SAT 97
--- OUTSIDE RECORDS SUMMARY | 2025-08-31 12:15 | XMS_ITS | Clinical Summary ---
Author Organization [facility] Address [address] [place] [address] Phone Care Team Providers Care Day Care Supervisor Name Role Phone Briana Dumas Primary Care [...] as needed for Pain. 20 Tablet 0 Active Additional Information Patient not taking.Reported on 07/19/2025 ASCORBIC ACID, VITAMIN C, ORAL Take by [...] for Shortness of Breath. 8.5 Gram 3 Active Additional Information Patient not taking.Reported on 07/19/2025 hydroCHLOROthiaz waqas 25 mg tabletIndication s:Bilateral edema of lower extremity,Essent ial hypertension Take 0.5-1 Tablets (12.5-25 mg) by mouth daily. 30 Tablet 5 3 Active Additional Information Patient not taking.Reported on 07/19/2025 lisinopriL (PRINIVIL) 20 mg tabletIndication s:Hypertension, essential Take 1 Tablet (20 mg) by mouth daily. 90 Tablet 3 3 Active Additional Information Patient not taking.Reported on 07/19/2025 citalopram (CeleXA) 10 mg tabletIndication s:Mild episode of depression Take 1 Tablet (10 mg) by mouth daily. 30 Tablet 3 Active Additional Information Patient not taking.Reported on 07/19/2025 rimegepant (Nurtec ODT) 75 mg Tablet, Rapid DissolveIndicati ons:Chronic migraine with aura without status migrainosus, not intractable Take 1 Tablet (75 mg) by mouth daily. 9 Tablet 6 4 Active hyoscyamine 0.[address] 1 Tablet (0.125 mg) under tongue every 4 hours as needed for Other (See Comment) (abdominal pain). 30 Tablet 1 4 Active Additional Information Patient not taking.Reported on 07/19/2025 meloxicam (MOBIC) 15 mg tablet Take 1 Tablet (15 mg) by mouth daily. 30 Tablet 1 4 Active nystatin (MYCOSTATIN) 100,000 unit/gram CreamIndications :Candidiasis of skin Apply to affected area 2 times daily. 30 Gram 1 4 Active Additional Information Patient not taking.Reported on 07/19/2025 nicotine (NICODERM CQ) 21 mg/24 hr patchIndications :Encounter for smoking cessation counseling Apply 1 Patch to skin as directed every 24 hours. 28 Patch 5 Active Additional Information Patient not taking.Reported on 07/19/2025 oxyCODONE-acetam inophen (PERCOCET) 7.5-325 mg TabletIndication s:Abdominal pain, acute, left lower quadrant Take 1 Tablet by mouth every 8 hours as needed for Pain, Moderate. Max Daily Amount: 3 Tablets 20 Tablet 5 Active metroNIDAZOLE (FLAGYL) 500 mg tablet Day before surgery, take 1 tablet by mouth at 1pm, 2pm, and 10pm. 3 Tablet 5 Active Additional Information Patient not taking.Reported on 07/19/2025 neomycin (MYCIFRADIN) 500 mg tablet Day before surgery, take 2 tablets at 1pm, 2pm, and 10pm. 6 Tablet 5 Active sodium, potassium and magnesium SULFATES (Suprep Bowel Prep Kit) 17.5-3.13-1.6 gram Recon Soln Follow directions from the clinic 354 mL 5 Active Additional Information Patient not taking.Reported on 07/19/2025 oxyCODONE-acetam inophen (Percocet) 5-325 mg tabletIndication s:Diverticulitis [...] Amount: 3 Tablets 20 Tablet 5 Active ciprofloxacin HCl (CIPRO) 500 mg tablet Take 1 Tablet by mouth 2 times daily. 5 Active ondansetron (ZOFRAN ODT) 4 mg Tablet, Rapid Dissolve Take 1 Tablet (4 mg) by mouth every 8 hours as needed for Nausea/Emesis. Dissolve tablet on top of tongue, then swallow with saliva. 20 Tablet 5 Active ondansetron (ZOFRAN ODT) 4 mg Tablet, Rapid Dissolve Take 1 Tablet (4 mg) by mouth every 8 hours as needed for Nausea/Emesis. Dissolve tablet on top of tongue, then swallow with saliva. 4 Tablet 5 Active tirzepatide, weight loss, (Zepbound) 7.5 mg/0.5 mL Pen InjectorIndicati ons:Morbid obesity with BMI of 50.0-59.9, adult (CMS/HCC) Inject 0.5 mL (7.5 mg) by subcutaneous injection every 7 days. [...] Encounters Date Type Department Care Team Description 08/17/2025 External Device Data [facility]STRACTION Provider, Abstract 08/17/2025 External Device Data [facility]STRACTION Provider, Abstract 08/17/2025 External Device Data [facility]STRACTION Provider, Abstract 08/01/2025 Orders Only [facility] [address] [place] [address] December, [employer] Morbid obesity with BMI of 50.0-59.9, adult (CMS/[facility]) (Primary Dx) 07/27/2025 Orders Only [facility] Health Information Management [place] [address] [place] [address] Provider, Abstract 07/22/2025 Results Follow-Up [facility] [address] [place] [address] , December, [employer] POC URINALYSIS DIPSTICK AUTOMATED, URINE CULTURE 07/21/2025 External Device Data [facility]STRACTION Provider, Abstract 07/20/2025 External Device Data [facility]STRACTION Provider, Abstract 07/20/2025 External Device Data [facility]STRACTION Provider, Abstract 07/19/2025 7:22 PM EBD SPECIAL EDUCATION TEACHER - 07/19/2025 9:30 PM EBD SPECIAL EDUCATION TEACHER Emergency [facility] Emergency Medicine [address] [place] [phone] Srikanth Rodriguez MD Gastroenteritis (Primary Dx); Urinary tract infection with hematuria, site unspecified Discharge Disposition: Home or Self Care 07/19/2025 2:20 PM EBD SPECIAL EDUCATION TEACHER Office Visit [facility] [address] [place] [phone] Pan, December, [employer] Acute cystitis with hematuria (Primary Dx) 07/19/2025 Travel 07/07/2025 External Device Data [facility]STRACTION Provider, Abstract 06/29/2025 External Device Data [facility]STRACTION Provider, Abstract 06/29/2025 External Device Data [facility]STRACTION Provider, Abstract 06/29/2025 External Device Data [facility]STRACTION Provider, Abstract 06/09/2025 12:20 PM CDT - 06/09/2025 12:40 PM CDT Surgery [facility] [place] [address] RAMAKRISHNA [address] [place] [phone] Avtar Kumar MD COLONOSCOPY 06/09/2025 11:03 AM CDT - 06/09/2025 12:53 PM CDT Hospital Encounter [facility] [place] [address] RAMAKRISHNA [address] [place] [phone] Avtar Kumar MD Diverticulitis of colon without hemorrhage Discharge Disposition: Home or Self Care 06/09/2025 8:30 AM CDT - 06/09/2025 11:59 PM CDT Hospital Encounter [facility] Ultrasound [address] [place] [address] Isis Fontana, Janet Inman, PA-C Discharge Disposition: Home or Self Care 06/08/2025 Orders Only [facility] HIM [address] [place] [address] Provider, Abstract from Last 3 Months Immunizations [...] drink = 0.6 oz pur e alcohol) Food Insecurity Answer Date Recorded Do you find you are eating l ess than you should because you can t pay for food? No 07/19/2025 Transportation Needs Answer Date Record ed Have you gone without health care because you didn t have a way to get there? 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 No 2024 Housing Stability Answer Date Recorded Do you worry you won t have a steady place to sleep or struggle to pay rent or mortgage? No 07/19/2025 Utility Needs Answer Date Recorded Do you have difficulty payin g for utility costs (electric, water or gas bills)? No 07/19/2025 Medication Needs Answer Date Recorded Have you skipped taking medi cation due to cost or worry you can t afford new medications? No 07/19/2025 Feeling Safe Answer Date Recorded Are you in a relationship wi th someone who hurts you emotionally and/or physically? No 07/19/2025 Food Insecurity Answer Date Recorded Patient needs follow up regardin 02/19/2025 Transportation Needs Answer Date Record ed Patient needs follow up regardin 02/19/2025 Utility Needs Answer Date Recorded Patient needs follow up regardin 02/19/2025 Comments No Sex and Gender Information Value Date Recorded Sex Assigned at Not on file Legal Sex Female 7:26 AM EBD SPECIAL EDUCATION TEACHER Gender Identity Not on file Sexual Orientation Not on file Last Filed Vital Signs Vital Sign Reading Time Taken Comments Blood Pressure 133/90 07/19/2025 9:00 PM EBD [employer] EDUCATION TEACHER Pulse 77 07/19/2025 9:00 PM EBD SPECIAL EDUCATION TEACHER Temperature 36.3 C (97.3 F) 07/19/2025 7:29 PM EBD SPECIAL EDUCATION TEACHER Respiratory Rate 16 07/19/2025 9:00 PM EBD SPECIAL EDUCATION TEACHER Oxygen Saturation 95% 07/19/2025 9:00 PM EBD SPECIAL EDUCATION TEACHER Inhaled Oxygen Concentration - - Weight 145.6 kg (321 lb) 07/19/2025 7:29 PM EBD SPECIAL EDUCATION TEACHER Height 167.6 cm (5' 6 ) 07/19/2025 7:29 PM EBD SPECIAL EDUCATION TEACHER Body Mass Index 51.81 07/19/2025 7:29 PM EBD SPECIAL EDUCATION TEACHER Plan of Treatment Upcoming Encounters Date Type Department Care Team (Late st Contact Info) Description 10/14/2025 12:00 PM EBD SPECIAL EDUCATION TEACHER Office Visit [facility] [address] [place] [address] Pan, December, [employer] [address] [place] [address] Health Maintenance Due Date Last Done Comments HEPATITIS B VACCINES (1 of 3 - 19+ 3-dose series) 2007 Preventative Visit-Managed Medicaid 2007 INFLUENZA VACCINE (#1) 2025 07/21/2021, 2015 Pre-Diabetes and Diabetes Screening 08/08/202508/08 DTAP/TDAP/TD VACCINES (2 - Td or Tdap) 10/16/2025 HPV VACCINES (No Doses Required) Completed Procedures Procedure Name Priority Date/Time Associated Diagnosis Comments COVID-19 ANTIGEN Stat 07/19/2025 8:20 PM EBD SPECIAL EDUCATION TEACHER LIPASE Stat 07/19/2025 8:20 PM EBD SPECIAL EDUCATION TEACHER COMPREHENSIVE METABOLIC PANEL Stat 07/19/2025 8:20 PM EBD SPECIAL EDUCATION TEACHER CBC WITH DIFFERENTIAL Stat 07/19/2025 8:20 PM EBD SPECIAL EDUCATION TEACHER INFLUENZA VIRUS A AND B, ANTIGEN DETECTION Stat 07/19/2025 8:20 PM EBD SPECIAL EDUCATION TEACHER HCG QUALITATIVE, URINE Stat 07/19/2025 7:23 PM EBD SPECIAL EDUCATION TEACHER URINALYSIS MICROSCOPY ONLY Stat 07/19/2025 7:23 PM EBD SPECIAL EDUCATION TEACHER URINALYSIS W/REFLEX MICROSCOPIC Stat 07/19/2025 7:23 PM EBD SPECIAL EDUCATION TEACHER URINE CULTURE Routine 07/19/2025 3:01 PM EBD SPECIAL EDUCATION TEACHER POC URINALYSIS DIPSTICK AUTOMATED Routine 07/19/2025 2:15 PM EBD SPECIAL EDUCATION TEACHER Acute cystitis with hematuria COMPREHENSIVE METABOLIC PANEL Routine 07/17/2025 10:27 AM CDT NV COLSC FLX W/RMVL OF TUMOR POLYP LESION SNARE TQ 06/09/2025 12:20 PM CDT Diverticulitis of colon without hemorrhage NV COLONOSCOPY W/BIOPSY SINGLE/MULTIPLE 06/09/2025 12:20 PM CDT Diverticulitis of colon without hemorrhage NV COLONOSCOPY FLX DX W/COLLJ SPEC WHEN PFRMD 06/09/2025 12:20 PM CDT Diverticulitis of colon without hemorrhage US GUIDED ASPIRATION Routine 06/09/2025 10:43 AM CDT Post-operative pain s/p lap sigmoid colectomy 03/02/2025 for chronic Diverticulitis ANAEROBIC/AEROBIC CULTURE W GRAM STAIN Routine 06/09/2025 9:34 AM CDT COMPREHENSIVE METABOLIC PANEL Routine 06/04/2025 1:45 PM CDT HEMOGLOBIN A1C Routine 08/08/2022 9:49 AM EBD [employer] EDUCATION TE[employer]ER Morbid obesity with BMI of 50.0-59.9, adult (CMS/HCC) from Last 3 Months or Most Recently Relevant to Health Maintenance Results * COVID-19 ANTIGEN (07/19/2025 8:20 PM EBD SPECIAL EDUCATION TEACHER) COVID-19 ANTIGEN Presumptive Negative Presumptive Negative 07/19/2025 8:48 PM EBD SPECIAL EDUCATION TEACHER [facility] Upper Respiratory ANTERIOR NARES SWAB / Unknown Collection / Unknown 07/19/2025 8:20 PM EBD SPECIAL EDUCATION TEACHER 07/19/2025 8:26 PM EBD SPECIAL EDUCATION TEACHER [facility] - 07/19/2025 8:48 PM EBD SPECIAL EDUCATION TEACHER Dolores SARS antigen test has been authorized by FDA under an emergency use authorization (EUA) and has been authorized only for the detection of proteins from SARS-CoV-2 and influenza, not for any other viruses or pathogens. Dolores SARS Antigen ZAIN is intended for the simultaneous qualitative detection and differentiation of nucleocapsid protein antigen from SARS-CoV-2 directly from nasopharyngeal (MANIFOLD OPERATOR) and nasal (NS) swab specimens collected from individuals who are suspected of respiratory viral infection consistent with COVID-19 by their healthcare provider within the first five (5) days of symptom onset when tested at least twice over three days with at least 48 hours between tests, or from individuals without symptoms or other epidemiological reasons to suspect COVID-19 when tested at least three times over five days with at least 48 hours between tests. This test is only authorized for the duration of the declaration that circumstances exist justifying the authorization of emergency use of in vitro diagnostics for detection and/or diagnosis of the virus that causes COVID-19 under Section 564(b)(1) of the Act, 21 U.S.C. 360bbb-3(b)(1), unless the authorization is terminated or revoked sooner. Negative results should be treated as presumptive and confirmed with a molecular assay, if necessary for patient care. Serial testing should be performed in individuals with negative results at least twice over three days (with 48 hours between tests) for symptomatic individuals or from individuals without symptoms or other epidemiological reasons to suspect COVID-19 when tested at least three times over five days with at least 48 hours between tests. Srikanth Rodriguez MD MICROBIOLOGY - GENERAL O RDERABLES Final Result [facility] CLIA # [id number] [address] [place] [id number] * INFLUENZA VIRUS A AND B, ANTIGEN DETECTION (07/19/2025 8:20 PM EBD SPECIAL EDUCATION TEACHER) INFLUENZA A AG NOT DETECTED Not Detected 07/19/2025 8:49 PM EBD SPECIAL EDUCATION TEACHER [facility] INFLUENZA B AG NOT DETECTED Not Detected 07/19/2025 8:49 PM [facility] Upper Respiratory ENTIRE NASOPHARYNX / Unknown Collection / Unknown 07/19/2025 8:20 PM EBD SPECIAL EDUCATION TEACHER 07/19/2025 8:26 PM EBD SPECIAL EDUCATION TEACHER [facility] - 07/19/2025 8:49 PM EBD SPECIAL EDUCATION TEACHER Negative results do not rule out infection. If clinically indicated, consider PCR testing which is more sensitive than antigen testing. If PCR testing is desired, consult with your local laboratory as sample recollection may be required. us Srikanth Rodriguez MD MICROBIOLOGY - GENERAL O RDERABLES Final Result [facility] CLIA # [id number] [address] [place] [id number] * (ABNORMAL) CBC WITH DIFFERENTIAL (07/19/2025 8:20 PM EBD SPECIAL EDUCATION TEACHER) WBC 15.9(H) 4.0 - 10.0 K/uL 07/19/2025 8:34 PM [facility] RBC 4.96 3.93 - 5.22 M/uL 07/19/2025 8:34 PM [facility] HEMOGLOBIN 15.5 11.2 - 15.7 g/dL 07/19/2025 8:34 PM [facility] HEMATOCRIT 44.5 34.1 - 44.9 % 07/19/2025 8:34 PM [facility] MCV 89.7 79.4 - 94.8 fL 07/19/2025 8:34 PM [facility] MCH 31.3 25.6 - 32.2 pg 07/19/2025 8:34 PM [facility] MCHC 34.8 32.2 - 35.5 g/dL 07/19/2025 8:34 PM [facility] RDW 13.2 11.0 - 14.5 % 07/19/2025 8:34 PM [facility] RDW-STDEV 43.0 36.9 - 56.9 fL 07/19/2025 8:34 PM [facility] PLATELETS 242 163 - 337 K/uL 07/19/2025 8:34 PM [facility] MPV 10.2 10.0 - 14.8 fL 07/19/2025 8:34 PM [facility] NEUTROPHILS 64 34 - 71 % 07/19/2025 8:34 PM [facility] LYMPHOCYTES 29 19 - 52 % 07/19/2025 8:34 PM [facility] MONOCYTES 5 5 - 13 % 07/19/2025 8:34 PM [facility] EOSINOPHILS 2 1 - 6 % 07/19/2025 8:34 PM [facility] BASOPHILS 0 0 - 1 % 07/19/2025 8:34 PM [facility] IMMATURE GRANULOCYTES 0 % 07/19/2025 8:34 PM [facility] NEUTROPHIL ABSOLUTE 10.11(H) 1.56 - 6.13 K/uL 07/19/2025 8:34 PM [facility] LYMPHOCYTE ABSOLUTE 4.60(H) 1.20 - 3.40 K/uL 07/19/2025 8:34 PM [facility] MONOCYTE ABSOLUTE 0.80(H) 0.24 - 0.36 K/uL 07/19/2025 8:34 PM [facility] EOSINOPHIL ABSOLUTE 0.24 0.04 - 0.36 K/uL 07/19/2025 8:34 PM [facility] BASOPHILS ABSOLUTE 0.05 0.01 - 0.08 K/uL 07/19/2025 8:34 PM [facility] IMMATURE GRANULOCYTES ABSOLUTE 0.05 K/uL 07/19/2025 8:34 PM [facility] Blood Collection / Unknown 07/19/2025 8:20 PM EBD [employer] EDUCATION TEACHER 07/19/2025 8:26 PM EBD SPECIAL EDUCATION TEACHER us Srikanth Rodriguez MD HEMATOLOGY ORDERABLES Fi nal Result [facility] CLIA # [id number] [address] [place] [id number] * LIPASE (07/19/2025 8:20 PM EBD SPECIAL EDUCATION TEACHER) LIPASE 26 13 - 60 U/L 07/19/2025 8:45 PM [facility] Blood Collection / Unknown 07/19/2025 8:20 PM EBD SPECIAL EDUCATION TEACHER 07/19/2025 8:26 PM EBD SPECIAL EDUCATION TEACHER us Srikanth Rodriguez MD CHEMISTRY ORDERABLES Fin al Result [facility] CLIA # [id number] [address] [place] [address] * (ABNORMAL) COMPREHENSIVE METABOLIC PANEL (07/19/2025 8:20 PM EBD SPECIAL EDUCATION TEACHER) Only the most recent of3 resultswithin the time period is included. SODIUM 135(L) 136 - 145 mmol/L 07/19/2025 8:45 PM [facility] POTASSIUM 4.4 3.5 - 5.1 mmol/L 07/19/2025 8:45 PM [facility] Comment:Moderate hemolysis p resent. Can cause significant falsely elevated result. Redraw if indicated. CHLORIDE 102 98 - 107 mmol/L 07/19/2025 8:45 PM [facility] CO2 25 22 - 29 mmol/L 07/19/2025 8:45 PM [facility] CALCIUM 9.0 8.6 - 10.0 mg/dL 07/19/2025 8:45 PM [facility] BUN 12 6 - 20 mg/dL 07/19/2025 8:45 PM [facility] CREATININE 0.72 0.51 - 0.95 mg/dL 07/19/2025 8:45 PM [facility] GLUCOSE 88 74 - 99 mg/dL 07/19/2025 8:45 PM [facility] TOTAL PROTEIN 7.1 6.6 - 8.7 g/dL 07/19/2025 8:45 PM [facility] ALBUMIN 3.4(L) 3.5 - 5.2 g/dL 07/19/2025 8:45 PM [facility] BILIRUBIN TOTAL 0.3 0.0 - 1.2 mg/dL 07/19/2025 8:45 PM [facility] ALKALINE PHOSPHATASE 90 35 - 104 U/L 07/19/2025 8:45 PM [facility] AST 28 0 - 35 U/L 07/19/2025 8:45 PM [facility] Comment:Hemolysis present. R esult may be falsely elevated. ALT 27 0 - 35 U/L 07/19/2025 8:45 PM [facility] Comment:Hemolysis present. R esult may be falsely elevated. GFR >60 >=60 mL/min/1.7 3 sq meter 07/19/2025 8:45 PM [facility] Comment:eGFR calculated with 2020 CKD-EPI equation. Vegetarian diet, extremely high or low muscle mass, and may affect results. Cystatin C with Glomerular Filtration Rate is a suitable alternative for these patients. ANION GAP 8 5 - 20 mmol/L 07/19/2025 8:45 PM [facility] Blood Collection / Unknown 07/19/2025 8:20 PM EBD [employer] EDUCATION TEACHER 07/19/2025 8:26 PM EBD SPECIAL EDUCATION TEACHER Srikanth Rodriguez MD CHEMISTRY ORDERABLES Fin al Result [id number] [address] [place] [id number] * (ABNORMAL) URINALYSIS MICROSCOPY ONLY (07/19/2025 7:23 PM EBD [employer] EDUCATION TEACHER) WBC UA 6-10(A) 0 - 2 /hpf 07/19/2025 7:38 PM [facility] RBC UA 3-5(A) 0 - 2 /hpf 07/19/2025 7:38 PM [facility] BACTERIA UA Negative Negative /hpf 07/19/2025 7:38 PM [facility] EPITHELIAL CELLS, URINE 0-5 0 - 5 /hpf 07/19/2025 7:38 PM [facility] Urine URINE SPECIMEN OBTAINED BY CLEAN CATCH PROCEDURE / Unknown Collection / Unknown 07/19/2025 7:23 PM EBD SPECIAL EDUCATION TEACHER 07/19/2025 7:34 PM EBD SPECIAL EDUCATION TEACHER Srikanth Rodriguez MD URINE ORDERABLES Final R esult [facility] CLIA # [id number] [address] [place] [id number] * (ABNORMAL) URINALYSIS WITH REFLEX MICROSCOPIC (07/19/2025 7:23 PM EBD SPECIAL EDUCATION TEACHER) COLOR UA Yellow Pale to Dark Yellow 07/19/2025 7:38 PM [facility] CLARITY UA Clear Clear 07/19/2025 7:38 PM [facility] SPECIFIC GRAVITY UA 1.020 1.003 - 1.035 07/19/2025 7:38 PM [facility] PH UA 7.0 5.0 - 8.0 07/19/2025 7:38 PM [facility] LEUKOCYTE ESTERASE UA 1+(A) Negative 07/19/2025 7:38 PM [facility] NITRITE UA Negative Negative 07/19/2025 7:38 PM [facility] PROTEIN UA Negative Negative 07/19/2025 7:38 PM [facility] GLUCOSE UA Negative Negative 07/19/2025 7:38 PM [facility] KETONES UA Negative Negative 07/19/2025 7:38 PM [facility] UROBILINOGEN UA 0.2 <2.0 mg/dL 7:38 PM [facility] BILIRUBIN UA Negative Negative 07/19/2025 7:38 PM [facility] BLOOD UA 3+(A) Negative 07/19/2025 7:38 PM [facility] Urine URINE SPECIMEN OBTAINED BY CLEAN CATCH PROCEDURE / Unknown Collection / Unknown 07/19/2025 7:23 PM EBD SPECIAL EDUCATION TEACHER 07/19/2025 7:34 PM EBD SPECIAL EDUCATION TEACHER Srikanth Rodriguez MD URINE ORDERABLES Final R esult Performing Organization Address City/[facility]/ZIP Co de Phone Number [facility] CLIA # [id number] [address] [place] [id number] * HCG QUALITATIVE, URINE (07/19/2025 7:23 PM EBD SPECIAL EDUCATION TEACHER) HCG QUAL URINE Negative Negative 07/19/2025 8:05 PM EBD SPECIAL EDUCATION TEACHER [facility] COLOR UA Yellow Pale to Dark Yellow 07/19/2025 8:05 PM EBD SPECIAL EDUCATION TEACHER [facility] CLARITY UA Clear Clear 07/19/2025 8:05 PM EBD SPECIAL EDUCATION TEACHER [facility] Urine URINE SPECIMEN OBTAINED BY CLEAN CATCH PROCEDURE / Unknown Collection / Unknown 07/19/2025 7:23 PM EBD SPECIAL EDUCATION TEACHER 07/19/2025 8:01 PM EBD SPECIAL EDUCATION TEACHER Srikanth Rodriguez MD URINE ORDERABLES Final R esult Performing Organization Address City/[facility]/ZIP Co de Phone Number [facility] CLIA # [id number] [address] [place] [phone] * URINE CULTURE (07/19/2025 3:01 PM EBD SPECIAL EDUCATION TEACHER) Pathologist [facility] URINE CULTURE SEE NOTE [facility] Comment: CULTURE, URINE, ROUTINE Micro Number: [id number] Test Status: Final Specimen Source: Urine, clean catch Specimen Quality: Adequate Result: Mixed genital ronal isolated. These superficial bacteria are not indicative of a urinary tract infection. No further organism identification is warranted on this specimen. If clinically indicated, recollect clean-catch, mid-stream urine and transfer immediately to Urine Culture Transport Tube. Test Performed at: [facility] [address] [place] [address] Natasha Bains MD Urine URINE SPECIMEN OBTAINED BY CLEAN CATCH PROCEDURE / Unknown 07/19/2025 3:01 PM EBD SPECIAL EDUCATION TEACHER 07/20/2025 4:39 AM EBD SPECIAL EDUCATION TEACHER Keyla Pan [employer] MICROBIOLOGY - GENERAL ORDERABLE S Final Result [facility] [phone] [facility] [address] [place] [address] * (ABNORMAL) POC URINALYSIS DIPSTICK AUTOMATED (07/19/2025 2:15 PM EBD SPECIAL EDUCATION TEACHER) COLOR UA POC Yellow Pale to Dark Yellow [facility] CLARITY UA POC Clear Clear, Other ME [facility] GLUCOSE UA POC Negative Negative, Normal [facility] BILIRUBIN UA POC Negative Negative [facility] KETONES UA POC Negative Negative [facility] SPECIFIC GRAVITY UA POC 1.020 1.000 - 1.030 [facility] BLOOD UA POC 1+(A) Negative [facility] PH UA POC 7.0 5.0 - 8.0 [facility] IC [facility] PROTEIN UA POC Negative Negative [facility] UROBILINOGEN UA POC 1.0 <2.0 mg/dL [facility] NITRITE UA POC Negative Negative [facility] LEUKOCYTE ESTERASE UA POC Negative Negative [facility] KIT LOT NUMBER POC [phone] [facility] KIT EXP DATE POC [id number] [facility] Urine 07/19/2025 2:15 PM EBD SPECIAL EDUCATION TEACHER december [employer] POINT OF CARE TESTING Final Resu lt [facility] CLIA# [id number] [facility] [place] [address] * US GUIDED ASPIRATION (06/09/2025 10:43 AM [...] the proposed needle course. A 10-cm 5 Cypriot YaDataeh centesis catheter was inserted. 7 ml of [...] the proposed needle course. A 10-cm 5 Cypriot [employer] centesis catheter was inserted. 7 ml of a dark burgundy fluid was then drained via syringe. The centesis catheter was removed in its entirety, the chlorhexidine cleansed from the skin, and a sterile dressing placed. The patient tolerated the procedure without complications. Estimated Blood Loss: None Isis Fontana NP ORDERABLES Final Result * ANAEROBIC/AEROBIC CULTURE W GRAM STAIN (06/09/2025 9:34 AM CDT) CULTURE No aerobic or anaerobic growth 06/12/2025 8:28 AM T [facility] GRAM STAIN No organisms observed 06/12/2025 8:28 AM CDT [facility] GRAM [facility]AIN 1+ (Rare or Occasional) Polymorphonuclear WBC 06/12/2025 8:28 AM T [facility] Body fluid ENTIRE PELVIS / Unknown Collection / Unknown 06/09/2025 9:34 AM CDT 06/09/2025 11:50 AM CDT Janet Deutsch PA-C MICROBIOLOGY - GENERAL OR DERABLES Final Result [facility] [id number] [address] [place] [address] [id number] * HEMOGLOBIN A1C (08/08/2022 9:49 AM EBD SPECIAL EDUCATION TEACHER) HEMOGLOBIN A1C 5.3 <5.7 % of total Hgb [facility] Comment: For the purpose of screening for the presence of diabetes: <5.7% Consistent with the absence of diabetes 5.7-6.4% Consistent with increased risk for diabetes (prediabetes) > or =6.5% Consistent with diabetes This assay result is consistent with a decreased risk of diabetes. Currently, no consensus exists regarding use of hemoglobin A1c for diagnosis of diabetes in children. According to [place] Diabetes Association (ADA) guidelines, hemoglobin A1c <7.0% represents optimal control in non- diabetic patients. Different metrics may apply to specific patient populations. Standards of Medical Care in Diabetes(ADA). ESTIMATED AVERAGE GLUCOSE (MG/DL) 105 mg/dL [facility] ESTIMATED AVERAGE GLUCOSE (MMOL/L) 5.8 mmol/L [facility] Comment: Test Performed at: [facility] [id number] [id number] Micah Lambert D.O., MPH Blood 08/08/2022 9:49 AM EBD SPECIAL EDUCATION TEACHER 08/09/2022 3:35 AM EBD SPECIAL EDUCATION TEACHER us Janine Lambert SUPERVISOR [employer] CHEMISTRY ORDERABLES Final Re sult [facility] [phone] The Other [facility] [id number] [id number] from Last 3 Months or Most Recently Relevant to Health Maintenance Insurance [facility] [id number] RX [employer] Medicaid KATHY Advance Directives For more information, please contact: [phone] * Full Code (Latest Code Status on File) Date Activated Date Inactivated Comments 06/09/2025 11:23 AM 06/09/2025 2:53 PM * Full Code Date Activated Date Inactivated Comments 03/12/2025 10:36 AM 03/14/2025 6:12 PM * Full Code Date Activated Date Inactivated Comments 03/12/2025 5:22 AM 03/12/2025 10:36 AM Care Teams Day Care Supervisor Relationship Specialty Start Date End Date Briana Dumas DO [address] [place] [address] PCP - General Family Practice 07/21/21
--- OUTSIDE RECORDS SUMMARY | 2025-08-31 12:15 | XMS_ITS | Encounter Summary ---
Author Organization [facility] Address 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 Topic: CPA Information Request >> February 09, 2025 9:32 AM John Davila wrote: Caller is returning phone call from clinic. Caller Name: Ivy HIGGINS Patient/Caregiver Callback Number: [phone] (mobile) Clinic Did Not Leave Note In Chart Call Notes: Patient/Caller returning call, no note documented with instructions from clinic. Transferred to Back[facility] [facility] Line and Shannon answered call. 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
--- OUTSIDE RECORDS SUMMARY | 2025-08-31 12:15 | XMS_ITS | Patient Health Record ---
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 Name Role Phone Kimo MCCONNELL, Dodie Primary [...] bronchitis Unknown Chantix Unknown Humira 40 MG/0.4ML Prefilled Syringe Kit Inject one syringe subcutaneously once every week.; Duration: 28 Active Social History Tobacco Use: Social History Observation Description Date Details (start date - stop date) Former Smoker NA - NA Social History Tobacco Use: Social Info Question Answer Notes Tobacco Use/Smoking Are you a: former smoker Problems Problem Type SNOMED Code ICD Code Onset Dates Problem Status W/U Status Risk Notes Problem Hidradenitis suppurativa (30009936) Hidradenitis suppurativa (L73.2) Active confirmed Continued Dr. Wilson plan of care, Patient is doing amazing on Humira with 99% of lesions resolved and minimal inflammation present ( 1 small and 1 moderate cyst present) Years of chronic HS has left scaring in axilla, breast, thighs and abdomen. Patient is very happy with results. 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
== END 2025-08-31 12:01 | disposition home or self-care (01) ==
PROVIDERS: Emergency Provider Emergency Medicine; PCP Family Medicine
DX: L02.31 Cutaneous abscess of buttock (principal)
CPT/HCPCS: 10060; 99283; J9999